=== PATIENT | female | born 1980 | race Caucasian/White ===

== ENCOUNTER 2016-06-13 17:33 | Inpatient (IN) | payer MEDICAID ==
[~2016-06-13] VITALS: Ht 162.6 cm; Wt 115.7 kg
[~2016-06-13 17:33] MED LIST: ACID1TAB PO; AMOX500C2 PO; ASPI1TAB PO; BENZ56AE TP; CLIN-80 PO; DCS100C PO; FAMO-119 PO; FLUC100T6 PO; FLUC150T PO; FLUC150T2; FRS325T PO; GLBR5T PO; GLIM2TAB PO; HYDR-34 PO; HYDR-3714 PO; HYDR-757 PO; IBP600T1 PO; INSA10V SC; INSU100V5 SQ; LEVO25TA45 PO; LIRA0.6P3; LORA0.5T; METF-380 PO; METF500T8 PO; NCT21TD TD; ONDA8TAB13 PO; ONDA8TAB9 PO; PEDI100T; PNT40TEC PO; PRM25T PO; SULF-222 PO; SULF1TAB35 PO; TRAM50TA2
[2016-06-13] MEDS ORDERED: KETOROLAC 30 MG/ML VIAL IVP STA (17:58)
[2016-06-13] MEDS ORDERED: NS IV 1000 ML 1,000 ML IV ONE (17:58)
[2016-06-13 18:24] LABS: BASOPHILS # (AUTO) 0.1 10^3/uL (0.0-0.1); BASOPHILS % (AUTO) 0 % (0-10); BILIRUBIN,URINE 1+ (NEGATIVE); EOSINOPHILS # (AUTO) 0.5 10^3/uL (0.0-0.3); EOSINOPHILS % (AUTO) 3 % (0-10); KETONES,URINE 2+ (NEGATIVE); LEUKOCYTE ESTERASE ,URINE 2+ (NEGATIVE); LYMPHOCYTES # (AUTO) 3.6 X 10^3 (1.0-4.0); LYMPHOCYTES % (AUTO) 26 % (12-44); MEAN CORPUSCULAR HEMOGLOBIN 27 PG (25-34); MEAN CORPUSCULAR HGB CONC 35 G/DL (32-36); MEAN CORPUSCULAR VOLUME 77 FL (80-99); MONOCYTES # (AUTO) 0.7 X 10^3 (0.0-1.0); MONOCYTES % (AUTO) 5 % (0-12); NEUTROPHILS # (AUTO) 8.9 X 10^3 (1.8-7.8); NEUTROPHILS % (AUTO) 65 % (42-75); NITRITE,URINE NEGATIVE (NEGATIVE); PH,URINE 6 (5-9); PLATELET COUNT 377 10^3/uL (130-400); PROTEIN,URINE 3+ (NEGATIVE); RED BLOOD COUNT 5.56 10^6/uL (4.35-5.85); RED CELL DISTRIBUTION WIDTH 13.3 % (10.0-14.5); UROBILINOGEN,URINE 1 MG/DL (NORMAL); WHITE BLOOD COUNT 13.7 10^3/uL (4.3-11.0)
--- NOTE | 2016-06-13 18:36 | ED Integumentary General ---
General Chief Complaint: Wound Check (No Charge) Stated Complaint: INNER L BUTTOCK CHEEK INFECTION, HIGH BLOOD SUGAR Nursing Triage Note: States she ahs a large pus filled pocket near perineum. States it has increased in size and lumps in rt groin. Fever and chills. Also states BS has been greater than 500. Source: patient History of Present Illness Time seen by provider: 17:53 Initial Comments PT C/O "BOIL" TO LEFT BUTTOCK/ PERINEUM AREA FOR AT LEAST 1 1/2 MONTHS--HAS NOT SOUGHT CARE AT ANY TIME FOR THIS STATES IS GRADUALLY GETTING WORSE,BUT IS NOT ACTUALLY ANY DIFFERENT TODAY THAN IT HAS BEEN HAS HAD THE SAME MULTIPLE TIMES IN GENERAL AREA FROM MONS PUBIS/GROIN/LABIA/ PERINEUM/BUTTOCKS PT ALSO HAS A FEW SMALLER ONES TO INNER THIGHS/GROIN AND MONS AREAS NONE HAVE BEEN DRAINING STATES SHE HAS HAD SUBJECTIVE FEVER AND CHILLS NO PROBLEMS URINATING OR HAVING BM'S PT IS DIABETIC AND IS EXTREMELY NON-COMPLIANT IN ALL ASPECTS OF CARE. STATES SHE HAS NOT TAKEN ANY OF HER MEDICATIONS SINCE AT LEAST FEBRUARY, MAYBE LONGER. STATES SHE CHECKED HER BLOOD SUGAR AND HAS BEEN RUNNING OVER 500 ( SHE RARELY, IF EVER, CHECKS HER BLOOD SUGAR) PT WAS HERE 04/11 AND 04/13 FOR THE SAME, BUT IN A SLIGHTLY DIFFERENT AREA THAN THE INVOLVED AREA TODAY--I&D DONE PT NEVER FOLLOWED UP WITH ANY ONE AFTER THAT. PT HAS BEEN ADMITTED IN THE PAST FOR THESE PCP: [facility] [place]ies and Home Medications Allergies Coded Allergies: latex (Unverified Allergy, Mild, RASH, ITCHING, 01/25/13) Uncoded Allergies: TAPE (Allergy, Mild, 05/23/09) Home Medications Aspirin/Acetaminophen/Caffeine 1 Tab Tablet 2 TAB PO Q6H PRN PRN PAIN (Reported ) Glimepiride Unknown Strength Tablet #90 Unknown Dose PO (Reported) Insulin Determir 1,000 Units/10 Ml Soln 30 UNITS SQ HS (Reported) Liraglutide 0.6 Mg/0.1 Ml Pen.injctr 1.8 MG SQ HS (Reported) Metformin HCl 500 Mg Tab.er.24 1,000 MG PO BID (Reported) Constitutional: see HPI chills fever EENTM: no symptoms reported Respiratory: no symptoms reported Cardiovascular: no symptoms reported Gastrointestinal: no symptoms reportedNo nausea, No vomiting Genitourinary: see HPI Musculoskeletal: no symptoms reported Skin: see HPI Psychiatric/Neurological: No Symptoms Reported Endocrine: See HPI Hematologic/Lymphatic: No Symptoms Reported Past Rhzbiex-Cbjliw-Nfpqyb Hx Patient Social History Alcohol Use: Denies Use Recreational Drug Use: Yes (THC) Smoking Status: Current Someday Smoker Type Used: Cigarettes 2nd Hand Smoke Exposure: Yes Recent Foreign Travel: No Contact w/Someone Who Travel: No Recent Infectious Disease Expo: No Recent Hopitalizations: No Immunizations Up To Date Tetanus Booster (TDap): Unknown PED Vaccines UTD: Yes Surgeries HX Surgeries: Yes (LEEP; X 4; MULTIPLE I&D'S OF ABSCESSES) Surgeries: Adenoidectomy, Section, Gallbladder, Tonsillectomy Respiratory Hx Respiratory Disorders: No Cardiovascular Hx Cardiac Disorders: No Neurological Hx Neurological Disorders: No Reproductive System Hx Reproductive Disorders: No Genitourinary Hx Genitourinary Disorders: No Gastrointestinal Hx Gastrointestinal Disorders: No Musculoskeletal Hx Musculoskeletal Disorders: No Endocrine Hx Endocrine Disorders: Yes (NON-COMPLIANCE IN ALL ASPECTS OF CARE--DOES NOT TAKE MEDICATIONS PRESCRIBED--GOES MONTHS WITHOUT TAKING THEM AT ALL, DOES NOT CHECK BLOOD SUGAR, DOES NOT FOLLOW ANY DIET, DOES NOT EXERCISE, AND DOES NOT FOLLOW UP WITH PCP) Endocrine Disorders: Diabetes, Insulin dep HEENT HX ENT Disorders: No Loss of Vision: Denies Hearing Impairment: Denies Cancer Hx Cancer: No Psychosocial Hx Psychiatric Problems: No Integumentary HX Skin/Integumentary Disorder: Yes (MULTIPLE ABSCESSES AND I&D'S --STAPH) Blood Transfusions Hx Blood Disorders: No Adverse Reaction to a Blood Tr: No Family Medical History Significant Family History: No Pertinent Family Hx Family Medial History: Alcoholism Alzheimer's disease Arthritis Cataracts Completed stroke Diabetes mellitus Drug abuse Glaucoma Osteoporosis Psychosocial problem Respiratory disorder Severe allergy Thyroid disease Visual disorder No Family History of: AIDS Abdominal aortic aneurysm [place]'s disease Aphasia Asthma Cancer of mouth Cardiovascular disease Colon cancer Congenital disease Congenital heart disease Coronary thrombosis Cystic fibrosis Deafness or hearing loss Dementia Dysphasia Fibrocystic disease of breast Gastroenteritis Headache disorder Hypercholesterolemia Hypertension Infertility Kidney disease Myocardial infarction Neoplasm Not obtainable due to adoption Parkinson's disease Prostate cancer Seizure disorder Tuberculosis Physical Exam Vital Signs Vital Sign - Last 12Hours 06/13/16 17:53 Temp 99.1 Pulse 80 Resp 18 B/P 109/73 Pulse Ox 96 Capillary Refill : Less Than 3 Seconds General Appearance: WD/WN no apparent distress obese HEENT: PERRL/EOMI Neck: normal inspection Cardiovascular: regular rate, rhythm no murmur Respiratory: normal breath sounds Gastrointestinal: non tender soft Extremities: normal inspection Neurologic/Psychiatric: coo II-XII nml as tested no motor/sensory deficits alert normal mood/affect oriented x 3 Skin: warm/dry other (LARGE, VERY HARD/INDURATED/ERYTHEMATOUS, VERY TENDER MASS/ABSCESS TO LEFT PERIRECTAL AREA--APPROXIMATELY 10 CM IN DIAMETER. NO POINTING. NO AREAS OF FLUCTUANCE, NO DRAINAGE. HAS SEVERAL OTHER SMALLER ABSCESS TO MEDIAL RIGHT THIGH, RIGHT GROIN, LEFT MONS PUBIS AREA. NONE WITH FLUCUTANCE, DRAINAGE, POINTING OR STREAKS. ) Progress/Results/Core Measures Results/Orders Lab Results Laboratory Tests Test 06/13/16 18:10 06/13/16 18:11 06/13/16 18:46 Range/Units Glucometer 242 H 70-110 MG/DL Alanine Aminotransferase (ALT/SGPT) 32 0-55 U/L Albumin 4.0 3.2-4.5 G/DL Alkaline Phosphatase 86 40-136 U/L Anion Gap 13 5-14 MMOL/L Aspartate Amino Transf (AST/SGOT) 29 5-34 U/L BUN/Creatinine Ratio 9 Basophils # (Auto) 0.1 0.0-0.1 10^3/uL Basophils (%) (Auto) 0 0-10 % Blood Urea Nitrogen 7 7-18 MG/DL Calcium Level 9.1 8.5-10.1 MG/DL Carbon Dioxide Level 21 21-32 MMOL/L Chloride Level 101 98-107 MMOL/L Creatinine 0.80 0.60-1.30 MG/DL Eosinophils # (Auto) 0.5 H 0.0-0.3 10^3/uL Eosinophils (%) (Auto) 3 0-10 % Estimat Glomerular Filtration Rate > 60 Glucose Level 246 H 70-105 MG/DL Hematocrit 43 35-52 % Hemoglobin 15.2 11.5-16.0 G/DL Lymphocytes # (Auto) 3.6 1.0-4.0 X 10^3 Lymphocytes (%) (Auto) 26 12-44 % Mean Corpuscular Hemoglobin 27 25-34 PG Mean Corpuscular Hemoglobin Concent 35 32-36 G/DL Mean Corpuscular Volume 77 L 80-99 FL Mean Platelet Volume 10.0 7.4-10.4 FL Monocytes # (Auto) 0.7 0.0-1.0 X 10^3 Monocytes (%) (Auto) 5 0-12 % Neutrophils # (Auto) 8.9 H 1.8-7.8 X 10^3 Neutrophils (%) (Auto) 65 42-75 % Platelet Count 377 130-400 10^3/uL Potassium Level 3.9 3.6-5.0 MMOL/L Red Blood Count 5.56 4.35-5.85 10^6/uL Red Cell Distribution Width 13.3 10.0-14.5 % Sodium Level 135 135-145 MMOL/L Total Bilirubin 0.5 0.1-1.0 MG/DL Total Protein 7.9 6.4-8.2 G/DL Urine Bacteria MODERATE H /HPF Urine Bilirubin 1+ H NEGATIVE Urine Casts NONE /LPF Urine Clarity SLIGHTLY CLOUDY Urine Color YELLOW Urine Crystals NONE /LPF Urine Culture Indicated YES Urine Glucose (UA) 3+ H NEGATIVE Urine Ketones 2+ H NEGATIVE Urine Leukocyte Esterase 2+ H NEGATIVE Urine Mucus LARGE H /LPF Urine Nitrite NEGATIVE NEGATIVE Urine Protein 3+ H NEGATIVE Urine RBC 2-5 H /HPF Urine RBC (Auto) 1+ H NEGATIVE Urine Specific [place] 1.025 H 1.016-1.022 Urine Squamous Epithelial Cells 25-50 H /HPF Urine Urobilinogen 1 NORMAL MG/DL Urine WBC 5-10 H /HPF Urine pH 6 5-9 White Blood Count 13.7 H 4.3-11.0 10^3/uL Lactic Acid Level 1.3 0.5-2.0 MMOL/L My Orders Orders-NIYAH HANNA DO Accucheck Stat ONCE (06/13/16 17:58) Saline Lock/Iv-Start (06/13/16 17:58) Cbc With Automated Diff (06/13/16 17:58) Comprehensive Metabolic Panel (06/13/16 17:58) Lactic Acid Analyzer (06/13/16 17:58) Ua Culture If Indicated (06/13/16 17:58) Blood Culture (06/13/16 17:58) Ns Iv 1000 Ml (Sodium Chloride 0.9%) (06/13/16 17:58) Ketorolac Injection (Toradol Injection) (06/13/16 17:58) Ct Pelvis W (06/13/16 18:28) Vancomycin Iv Add-[place] (Vancomycin Iv (06/13/16 18:45) Iohexol Injection (Omnipaque 350 Mg/Ml 1 (06/13/16 18:45) Ns (Ivpb) (Sodium Chloride 0.9% Ivpb Bag (06/13/16 18:45) Urine Culture (06/13/16 18:11) Medications Given in ED Current Medications Medications Dose Ordered Sig/Laura Route Start Time Stop Time Status Last Admin Dose Admin Iohexol 100 ml ONCE ONCE IV 06/13/16 18:45 06/13/16 18:46 DC 06/13/16 18:52 100 ML Sodium Chloride 100 ml ONCE ONCE IV 06/13/16 18:45 06/13/16 18:46 DC 06/13/16 18:52 80 ML Sodium Chloride 1,000 ml @ 0 mls/hr Q0M ONCE IV 06/13/16 17:58 06/13/16 18:00 DC 06/13/16 18:27 1,000 MLS/HR Vancomycin HCl/ Sodium Chloride 250 ml @ 250 mls/hr ONCE ONCE IV 06/13/16 18:45 06/13/16 19:44 DC 06/13/16 19:15 250 MLS/HR Vital Signs/I&O Vital Sign - Last 12Hours 06/13/16 06/13/16 17:53 19:45 Temp 99.1 98.0 Pulse 80 89 Resp 18 18 B/P 109/73 120/71 Pulse Ox 96 99 Blood Pressure Mean: 85 Point of Care Testing Finger Stick Blood Glucose: [address] PELVIS--4.5 CM X 2.6 X 1.8 CM ABSCESS/AREA OF CONSOLIDATION TO LEFT PERIRECTAL AREA/LEFT MEDIAL GLUTEUS AREA ADJACENT TO ANUS. OTHER SMALLER ABSCESSES TO RIGHT MEDIAL THIGH AND LEFT MONS AREAS--PER RADIOLOGIST REPORT @ 1921 Reviewed: Reviewed by Me Departure Communication Progress Notes 1921--SPOKE WITH DR. NUÑEZ, ACCEPTS PT FOR ADMIT 1923--SPOKE WITH DR. CHASE, ALREADY HERE IN ER AND HE IS IN TO SEE PT. CARE TURNED OVER TO HIM. HE IS PLANNING ON TAKING PT TO SURGERY IN AM Impression Impression: Primary Impression: LEFT PERIRECTAL ABSCESS Additional Impressions: Uncontrolled diabetes mellitus EXTREME NON-COMPLIANCE Disposition: 09 ADMITTED INPATIENT Condition: Stable Decision to Admit Reason: Admit from ER (General) Decision to Admit/Date: Jun 13, 2016 Time/Decision to Admit Time: 19:25 Departure-Patient Inst. Referrals: [facility] (PCP/Family) Primary Care Physician NIYAH HANNA DO Jun 13, 2016 18:36
[2016-06-13 18:38] LABS: SQUAMOUS EPITHELIAL CELL,UR 25-50 /HPF
[2016-06-13] MEDS ORDERED: NS 100 ML (IVPB) BAG IV ONE (18:45)
[2016-06-13] MEDS ORDERED: VANCOMYCIN IV ADD-VANTAGE 1,000 MG in SODIUM CHLORIDE (ADD-VANTAGE) 250 ML IV ONE (18:45)
[2016-06-13] MEDS ORDERED: IOHEXOL 350 MG/ML 100 ML (OMNIPAQUE 350) VIAL IV ONE (18:45)
[2016-06-13 18:53] LABS: ALANINE AMINOTRANSFERASE 32 U/L (0-55); ANION GAP 13 MMOL/L (5-14); ASPARTATE AMINO TRANSFERASE 29 U/L (5-34); BILIRUBIN,TOTAL 0.5 MG/DL (0.1-1.0); BLOOD UREA NITROGEN 7 MG/DL (7-18); BUN/CREATININE RATIO 9; CALCIUM 9.1 MG/DL (8.5-10.1); CARBON DIOXIDE 21 MMOL/L (21-32); CHLORIDE 101 MMOL/L (98-107); GFR ESTIMATED > 60; GLUCOSE 246 MG/DL (70-105); POTASSIUM 3.9 MMOL/L (3.6-5.0); SODIUM 135 MMOL/L (135-145); TOTAL PROTEIN 7.9 G/DL (6.4-8.2)
--- NOTE | 2016-06-13 19:20 | Diagnostic Imaging Report ---
CLINICAL INDICATION: Patient with cyst in the groin. Patient has x4. EXAM: Axial CT scan of the pelvis performed with 20 cc of Omnipaque 350 IV contrast. Portal venous and delayed phases were obtained. Coronal reformatted images were created. COMPARISON: CT scan of the abdomen and pelvis performed with IV contrast dated 05/15/2014. FINDINGS: There is a 2.6 cm x 1.8 cm x 4.5 cm (AP x Trans x CC) area of amorphous consolidation involving the medial gluteus which is adjacent to the anus. It is unknown if this represents a cyst or area of infection or inflammatory process. There is mild adjacent fat stranding. This was not seen on the prior study. There is a roughly 2.1 cm wide x 4 mm deep area of focal soft tissue thickening involving the medial right upper thigh region. There is mild adjacent fat stranding. This lesion is pretty superficial. There is also another superficial area of increased density on the left side of the mons pubis which measures roughly 9 mm with adjacent fat stranding. This is seen on series 2, image 56. There is no other extrapelvic soft tissue abnormality seen. The uterus and adnexal regions are unremarkable. The visualized intestines and appendix are unremarkable. There is no intra-abdominal free air or free fluid. There is no significant lymphadenopathy. Bones show no significant abnormality. IMPRESSION: 1.: There is a 2.6 cm x 1.8 cm x 4.5 cm (AP x Trans x CC) area of amorphous density involving the medial gluteus subcutaneous fat which is adjacent to the anus. It is unknown if this represents a cyst or infectious or inflammatory process. 2.: There are two other small areas of skin thickening with adjacent fat stranding which are superficial and involve the medial right upper thigh region and left mons pubis region. These are superficial lesions. Dictated by: Dictated on workstation # [id number]
--- NOTE | 2016-06-13 19:57 | Consultation ---
History of Present Illness History of Present Illness Patient Consulted On(selma/time) 06/13/16 19:51 Date of Admission History of Present Illness Pt is a 36 y.o. female with complaints of abscess on her left gluteal cheek, "near my rectum". She states it has been there about a month and half. It has not gotten better, pain is getting worse (she rates it at at least a 7 out of 10). She is an uncontrolled diabetic, blood sugars have been over 500. She has not come in until now because she was terrified of it being "lanced in the ER". She states she didn't eat much today, but is hungry now. Allergies and Home Medications Allergies Coded Allergies: latex (Unverified Allergy, Mild, RASH, ITCHING, 01/25/13) Uncoded Allergies: TAPE (Allergy, Mild, 05/23/09) Home Medications Acidophilus/Bulgaricus 1 Tab.chew Tab.chew 30Days 1 TAB.CHEW PO AC Prescribed by: ALLI PEREA on 05/17/14 1622 Aspirin/Acetaminophen/Caffeine 1 Tab Tablet 2 TAB PO Q6H PRN PRN PAIN (Reported ) Benzocaine/Menthol 56 Ml Aerosol 30Days 0 ML TP TID PRN PRN PAIN Prescribed by: ALLI PEREA on 05/17/14 1622 Famotidine 20 Mg Tablet #20 20 MG PO BID Prescribed by: TIFFANY CARRASCO on 04/13/16 1750 Fluconazole 150 Mg Tablet #2 (Reported) Fluconazole 100 Mg Tablet #10 100 MG PO DAILY Prescribed by: TIFFANY CARRASCO on 04/13/16 1750 Hydrocodone/Acetaminophen 1 Each Tablet #14 1 EACH PO Q4H PRN PRN PAIN Prescribed by: KIMBERLI FELTON on 04/11/16 1217 Insulin Detemir 1 Unit/0.01 Ml Soln 30Days 20 UNIT SQ HS Prescribed by: ALLI PEREA on 05/17/14 1622 Levothyroxine Sodium 25 Mcg Tablet 25 MCG PO DAILY (Reported) Liraglutide 0.6 Mg/0.1 Ml Pen.injctr #9 (Reported) Lorazepam 0.5 Mg Tablet #30 (Reported) Metformin Hcl 500 Mg Tab.sr.24h 30Days 1,000 MG PO BID Start the morning of 05-18-14 Prescribed by: ALLI PEREA on 05/17/14 1622 Ondansetron 8 Mg Tab.rapdis #20 8 MG PO TID PRN PRN NAUSEA Prescribed by: ALLI PEREA on 05/17/14 1627 Ondansetron 8 Mg Tab.rapdis #10 8 MG PO Q6H PRN PRN NAUSEA/VOMITING Prescribed by: KIMBERLI FELTON on 04/11/16 1217 Ondansetron 8 Mg Tab.rapdis #10 8 MG PO Q6H PRN PRN NAUSEA Prescribed by: TIFFANY CARRASCO on 04/13/16 1750 Promethazine Hcl 25 Mg Tab #5 25 MG PO Q6H PRN PRN NAUSEA Prescribed by: ALLI PEREA on 05/17/14 1627 Sulfamethoxazole/Trimethoprim 1 Each Tablet #20 1 EACH PO BID Prescribed by: KIMBERLI FELTON on 04/11/16 1217 Tramadol HCl 50 Mg Tablet #60 (Reported) Past Zysqnrv-Aimalu-Zhnsky Hx Patient Social History Alcohol Use: Denies Use Recreational Drug Use: Yes (thc and alcohol) Smoking Status: Current Someday Smoker Type Used: Cigarettes 2nd Hand Smoke Exposure: Yes Recent Foreign Travel: No Contact w/Someone Who Travel: No Recent Infectious Disease Expo: No Recent Hopitalizations: No Immunizations Up To Date Tetanus Booster (TDap): Unknown PED Vaccines UTD: Yes Surgeries HX Surgeries: Yes (LEEP) Surgeries: Adenoidectomy, Section, Gallbladder, Tonsillectomy Respiratory Hx Respiratory Disorders: No Cardiovascular Hx Cardiac Disorders: No Neurological Hx Neurological Disorders: No Reproductive System Hx Reproductive Disorders: No Genitourinary Hx Genitourinary Disorders: No Gastrointestinal Hx Gastrointestinal Disorders: No Musculoskeletal Hx Musculoskeletal Disorders: No Endocrine Hx Endocrine Disorders: Yes Endocrine Disorders: Diabetes, Insulin dep HEENT HX ENT Disorders: No Loss of Vision: Denies Hearing Impairment: Denies Cancer Hx Cancer: No Psychosocial Hx Psychiatric Problems: No Integumentary HX Skin/Integumentary Disorder: No Blood Transfusions Hx Blood Disorders: No Adverse Reaction to a Blood Tr: No Family Medical History Significant Family History: COPD, Diabetes, Psychiatric Problems, Stroke Review of Systems-General Constitutional: chillsNo dizziness, fever weakness EENTM: No blurred vision, No epistaxis, No hearing loss, No throat pain, No throat swelling, No vision loss Respiratory: No cough, No dyspnea on exertion, No hemoptysis Cardiovascular: No chest pain, No palpitations, No syncope Gastrointestinal: No abdominal pain, No constipation, No diarrhea, No hematemesis Skin: see HPI change in color Psychiatric/Neurological: Denies Anxiety, Denies Depressed, Denies Headache, Denies Paresthesia, Denies Seizure Physical Exam-General Problems Physical Exam Vital Signs Vital Sign - Last 12Hours 06/13/16 17:53 Temp 99.1 Pulse 80 Resp 18 B/P 109/73 Pulse Ox 96 Capillary Refill : Less Than 3 Seconds General Appearance: WD/WN mild distress (secondary to pain) obese Eyes: Bilateral Eye EOMI, Bilateral Eye PERRL HEENT: pharynx normalNo scleral icterus (R), No scleral icterus (L) Neck: non-tender full range of motion supple normal inspection Respiratory: lungs clear normal breath sounds no respiratory distress no accessory muscle use Cardiovascular: regular rate, rhythm no edema no murmur Gastrointestinal: normal bowel sounds soft no organomegaly no pulsatile mass Genital/Rectal: other (exam done with female nurse in room. Pt has a gluteal abscess, purplish discoloration of skin, erythema and tender. 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 as tested no motor/sensory deficits alert normal mood/affect oriented x 3 Lymphatic: no adenopathy (neck, axilla or groin) Data Review Labs Laboratory Tests 06/13/16 18:10: Glucometer 242H 06/13/16 18:11: Alanine Aminotransferase (ALT/SGPT) 32, Albumin 4.0, Alkaline Phosphatase 86, Anion Gap 13, Aspartate Amino Transf (AST/SGOT) 29, BUN/Creatinine Ratio 9, Basophils # (Auto) 0.1, Basophils (%) (Auto) 0, Blood Urea Nitrogen 7, Calcium Level 9.1, Carbon Dioxide Level 21, Chloride Level 101, Creatinine 0.80, Eosinophils # (Auto) 0.5H, Eosinophils (%) (Auto) 3, Estimat Glomerular Filtration Rate > 60, Glucose Level 246H, Hematocrit 43, Hemoglobin 15.2, Lymphocytes # (Auto) 3.6, Lymphocytes (%) (Auto) 26, Mean Corpuscular Hemoglobin 27, Mean Corpuscular Hemoglobin Concent 35, Mean Corpuscular Volume 77L, Mean Platelet Volume 10.0, Monocytes # (Auto) 0.7, Monocytes (%) (Auto) 5, Neutrophils # (Auto) 8.9H, Neutrophils (%) (Auto) 65, Platelet Count 377, Potassium Level 3.9, Red Blood Count 5.56, Red Cell Distribution Width 13.3, Sodium Level 135, Total Bilirubin 0.5, Total Protein 7.9, Urine Bacteria MODERATEH, Urine Bilirubin 1+H, Urine Casts NONE, Urine Clarity SLIGHTLY CLOUDY , Urine Color YELLOW, Urine Crystals NONE, Urine Culture Indicated YES, Urine Glucose (UA) 3+H, Urine Ketones 2+H, Urine Leukocyte Esterase 2+H, Urine Mucus LARGEH, Urine Nitrite NEGATIVE, Urine Protein 3+H, Urine RBC 2-5H, Urine RBC ( Auto) 1+H, Urine Specific [place] 1.025H, Urine Squamous Epithelial Cells 25-50H , Urine Urobilinogen 1, Urine WBC 5-10H, Urine pH 6, White Blood Count 13.7H 06/13/16 18:46: Lactic Acid Level 1.3 Assessment/Plan Assessment/Plan Assessment/Plan Gluteal Abscess -to OR in am for I&D, with possible packing. Discussed risks and benefits with pt, not limited to pain, bleeding, infection and scar. All questions answered to her satisfaction. Pt was told she must get her blood sugar under control , this will delay her healing. IV fluids, ABX - Vanco. NPO after midnight. DM - uncontrolled Morbid Obesity DREA CHASE DO Jun 13, 2016 19:57 LARGEH, Urine Nitrite NEGATIVE, Urine Protein 3+H, Urine RBC 2-5H, Urine RBC ( Auto) 1+H, Urine Specific [place] 1.025H, Urine Squamous Epithelial Cells 25-50H , Urine Urobilinogen 1, Urine WBC 5-10H, Urine pH 6, White Blood Count 13.7H 06/13/16 18:46: Lactic Acid Level 1.3 DREA CHASE DO Jun 13, 2016 19:57
[2016-06-13 20:00] VITALS: BP 122/73
[2016-06-13] MEDS ORDERED: VANCOMYCIN 1 GM/NS 250 ML IVPB IV NR ×2 (20:30)
[2016-06-13] MEDS ORDERED: CATHETER FLUSH 10 ML SYR IV PRN (20:45)
[2016-06-13] MEDS: NS IV 1000 ML 1,000 ML IV SCH (20:54)
[2016-06-13] MEDS: fentaNYL INJECTION 100 MCG/2 ML AMP IV PRN (21:00)
[2016-06-13] MEDS: inSUlin (REGULAR) HUMAN 1 UNIT/0.01 ML (CHARGE PER UNIT) SC SCH (21:24)
[2016-06-14] VITALS (7 sets, daily range): BP systolic 93–130; BP diastolic 56–71
[2016-06-14] MEDS: fentaNYL INJECTION 100 MCG/2 ML AMP IV PRN ×4 (01:02→15:04)
[2016-06-14] MEDS ORDERED: INSU100V5 SQ (02:01)
[2016-06-14] MEDS ORDERED: LIRA0.6P3 SQ (02:01)
[2016-06-14] MEDS ORDERED: METF-478 PO (02:01)
[2016-06-14] MEDS ORDERED: GLIM2TAB PO ×2 (02:02→14:17)
[2016-06-14] MEDS: VANCOMYCIN 1250 MG/NS 250 ML IVPB IV SCH ×6 (04:42→23:58)
[2016-06-14] MEDS: KETOROLAC 30 MG/ML VIAL IV PRN ×3 (05:10→18:34)
[2016-06-14] MEDS: NS IV 1000 ML 1,000 ML IV SCH ×4 (05:11→23:10)
[2016-06-14] MEDS: inSUlin (REGULAR) HUMAN 1 UNIT/0.01 ML (CHARGE PER UNIT) SC SCH ×4 (05:14→16:59)
[2016-06-14 05:57] LABS: BASOPHILS % (AUTO) 0 % (0-10); EOSINOPHILS # (AUTO) 0.4 10^3/uL (0.0-0.3); EOSINOPHILS % (AUTO) 3 % (0-10); LYMPHOCYTES # (AUTO) 4.2 X 10^3 (1.0-4.0); LYMPHOCYTES % (AUTO) 32 % (12-44); MEAN CORPUSCULAR HEMOGLOBIN 28 PG (25-34); MEAN CORPUSCULAR HGB CONC 35 G/DL (32-36); MEAN CORPUSCULAR VOLUME 79 FL (80-99); MEAN PLATELET VOLUME 10.3 FL (7.4-10.4); MONOCYTES # (AUTO) 0.7 X 10^3 (0.0-1.0); MONOCYTES % (AUTO) 5 % (0-12); NEUTROPHILS # (AUTO) 7.5 X 10^3 (1.8-7.8); NEUTROPHILS % (AUTO) 59 % (42-75); PLATELET COUNT 300 10^3/uL (130-400); RED BLOOD COUNT 5.45 10^6/uL (4.35-5.85); RED CELL DISTRIBUTION WIDTH 13.5 % (10.0-14.5); WHITE BLOOD COUNT 12.8 10^3/uL (4.3-11.0)
[2016-06-14] MEDS ORDERED: FLU TRIvalent (5 YOA+) 2016-17 (AFLURIA) 0.5 ML IM ONE (07:30)
[2016-06-14] MEDS ORDERED: BUP/EPI 0.25% 1:200,000 (MARCAINE) 30 ML VIAL ONE (09:05)
[2016-06-14] MEDS ORDERED: LACTATED RINGERS 1,000 ML IV ONE (10:10)
[2016-06-14] MEDS ORDERED: MIDAZOLAM 2 MG/2 ML (VERSED) VIAL ONE (10:10)
[2016-06-14] MEDS ORDERED: SUCCINYLCHOLINE INJ 100 MG/5 ML SYR ONE (10:10)
[2016-06-14] MEDS ORDERED: proPOfol 200 MG/20 ML (DIPRIVAN) VIAL IV ONE (10:10)
[2016-06-14] MEDS ORDERED: fentaNYL INJECTION 100 MCG/2 ML AMP ONE (10:10)
[2016-06-14] MEDS ORDERED: LACTATED RINGERS 1,000 ML IV SCH (10:15)
[2016-06-14] MEDS ORDERED: morphine INJ 10 MG/ML 1ML (SYR OR VIAL) ONE (10:23)
[2016-06-14] MEDS ORDERED: ONDANSETRON 4 MG/2 ML (SDV) Z0FRAN ONE ×2 (10:23→10:46)
[2016-06-14] MEDS ORDERED: ROCURONIUM 50 MG/5 ML (ZEMURON) VIAL IV ONE (10:46)
[2016-06-14] MEDS ORDERED: SEVOFLURANE (ULTANE) 15 ML INHAL SOLN ONE (10:46)
[2016-06-14] MEDS ORDERED: NEOSTIGMINE (BLOXIVERZ ) 1 MG/1ML 10 ML VIAL ONE (10:46)
[2016-06-14] MEDS ORDERED: GLYCOPYRROLATE 0.2 MG/ML (ROBINUL) 2 ML VIAL ONE (10:46)
--- NOTE | 2016-06-14 10:55 | Progress Note-Post Operative ---
Post-Operative Progess Note Vault Maker None Pre-Operative Diagnosis Left gluteal abscess Post-Operative Diagnosis Same with necrotic tissue Post-Op Procedure Note Date of Procedure: Jun 14, 2016 Name of Procedure: I&D left gluteal abscess with debridement of necrotic tissue, packed with 1/2" iodophor Anesthesia Type GET Estimated blood loss (mL): appx 20cc Packin/2 inch iodophor packing Specimen(s) collected abscess culture, necrotic tissue DREA CHASE DO Jun 14, 2016 10:55
[2016-06-14] MEDS: morphine INJ 10 MG/ML 1ML (SYR OR VIAL) IV PRN ×2 (11:14→11:22)
[2016-06-14] MEDS ORDERED: ONDANSETRON 4 MG/2 ML (SDV) Z0FRAN IV PRN (11:15)
--- NOTE | 2016-06-14 13:53 | History & Physicial (CHS) ---
HPI History of Present Illness: Patient presented to ER with complaint of abscess in gluteal region which has been worsening over the last 1.5 months. She does endorse fevers at home. She has diabetes and she states she had a "stockpile" of metformin, victoza and levemir and so she has been taking those, but has been out of glimeperide which she says she has tried to get refilled but can't. She can't recall the last time she saw her primary, Tatiana Santos APRN. Date seen by provider: Jun 14, 2016 Time seen by provider: 11:15 Attending Physician Marian Riojas MD PCP [facility] [place] Date of Admission Jun 13, 2016 at 19:47 Home Medications Home Medications Reviewed patient Home Medication Reconciliation Form Allergies Coded Allergies: latex (Unverified Allergy, Mild, RASH, ITCHING, 01/25/13) Uncoded Allergies: TAPE (Allergy, Mild, 05/23/09) UXO-Vwypct-[id number] Hx Patient Social History Alcohol Use: Denies Use Recreational Drug Use: Yes (THC) Smoking Status: Current Everyday Smoker Type Used: Cigarettes 2nd Hand Smoke Exposure: Yes Recent Foreign Travel: No Contact w/other who traveled: No Recent Hopitalizations: No Recent Infectious Disease Expo: No Physical Abuse Screen: No Sexual Abuse: No Immunizations Up To Date Tetanus Booster (TDap): Unknown Past Medical History Past Medical History 1. Diabetes Mellitus- poorly controlled 2. Tobaccoism 3. History of labial abscess with I&D 03/10 with staph aures (sensitive to all antibiotics) 4. Obesity 5. Hypothyroidism 6. History of depression and anxiety with previous evaluations at [facility] Past Surgical History 1. x4 2. Tonsillectomy with adenoidectomy 3. Cholecystectomy Family Medical History Significant Family History: COPD, Diabetes, Psychiatric Problems, Stroke Review of Systems ([facility]) Constitutional: No fever EENTM: No nose congestion, No throat pain Respiratory: No cough, No short of breath Cardiovascular: No chest pain Gastrointestinal: No abdominal pain, No constipation, No diarrhea, No nausea, No vomiting Genitourinary: no symptoms reported Musculoskeletal: No joint pain Skin: see HPI Psychiatric/Neurological: No Symptoms Reported Reviewed Test Results Reviewed Test Results Lab Laboratory Tests Test 2/17/17 18:10 06/13/16 18:11 06/13/16 18:46 06/14/16 05:00 Range/Units Glucometer 242 H 70-110 MG/DL Alanine Aminotransferase (ALT/SGPT) 32 0-55 U/L Albumin 4.0 3.2-4.5 G/DL Alkaline Phosphatase 86 40-136 U/L Anion Gap 13 5-14 MMOL/L Aspartate Amino Transf (AST/SGOT) 29 5-34 U/L BUN/Creatinine Ratio 9 Basophils # (Auto) 0.1 0.0 0.0-0.1 10^3/uL Basophils (%) (Auto) 0 0 0-10 % Blood Urea Nitrogen 7 7-18 MG/DL Calcium Level 9.1 8.5-10.1 MG/DL Carbon Dioxide Level 21 21-32 MMOL/L Chloride Level 101 98-107 MMOL/L Creatinine 0.80 0.60-1.30 MG/DL Eosinophils # (Auto) 0.5 H 0.4 H 0.0-0.3 10^3/uL Eosinophils (%) (Auto) 3 3 0-10 % Estimat Glomerular Filtration Rate > 60 Glucose Level 246 H 70-105 MG/DL Hematocrit 43 43 35-52 % Hemoglobin 15.2 15.2 11.5-16.0 G/DL Lymphocytes # (Auto) 3.6 4.2 H 1.0-4.0 X 10^3 Lymphocytes (%) (Auto) 26 32 12-44 % Mean Corpuscular Hemoglobin 27 28 25-34 PG Mean Corpuscular Hemoglobin Concent 35 35 32-36 G/DL Mean Corpuscular Volume 77 L 79 L 80-99 FL Mean Platelet Volume 10.0 10.3 7.4-10.4 FL Monocytes # (Auto) 0.7 0.7 0.0-1.0 X 10^3 Monocytes (%) (Auto) 5 5 0-12 % Neutrophils # (Auto) 8.9 H 7.5 1.8-7.8 X 10^3 Neutrophils (%) (Auto) 65 59 42-75 % Platelet Count 377 300 130-400 10^3/uL Potassium Level 3.9 3.6-5.0 MMOL/L Red Blood Count 5.56 5.45 4.35-5.85 10^6/uL Red Cell Distribution Width 13.3 13.5 10.0-14.5 % Sodium Level 135 135-145 MMOL/L Total Bilirubin 0.5 0.1-1.0 MG/DL Total Protein 7.9 6.4-8.2 G/DL Urine Bacteria MODERATE H /HPF Urine Bilirubin 1+ H NEGATIVE Urine Casts NONE /LPF Urine Clarity SLIGHTLY CLOUDY Urine Color YELLOW Urine Crystals NONE /LPF Urine Culture Indicated YES Urine Glucose (UA) 3+ H NEGATIVE Urine Ketones 2+ H NEGATIVE Urine Leukocyte Esterase 2+ H NEGATIVE Urine Mucus LARGE H /LPF Urine Nitrite NEGATIVE NEGATIVE Urine Protein 3+ H NEGATIVE Urine RBC 2-5 H /HPF Urine RBC (Auto) 1+ H NEGATIVE Urine Specific Whittaker 1.025 H 1.016-1.022 Urine Squamous Epithelial Cells 25-50 H /HPF Urine Urobilinogen 1 NORMAL MG/DL Urine WBC 5-10 H /HPF Urine pH 6 5-9 White Blood Count 13.7 H 12.8 H 4.3-11.0 10^3/uL Lactic Acid Level 1.3 0.5-2.0 MMOL/L Test 06/14/16 05:46 06/14/16 11:59 Range/Units Glucometer 236 H 211 H 70-110 MG/DL Radiology CT pelvis 06/13: IMPRESSION: 1.: There is a 2.6 cm x 1.8 cm x 4.5 cm (AP x Trans x CC) area of amorphous density involving the medial gluteus subcutaneous fat which is adjacent to the anus. It is unknown if this represents a cyst or infectious or inflammatory process. 2.: There are two other small areas of skin thickening with adjacent fat stranding which are superficial and involve the medial right upper thigh region and left mons pubis region. These are superficial lesions. Physical Exam-([facility]) Physical Exam Vital Signs VS - Last 72 Hours, by Label 06/13/16 06/13/16 06/13/16 06/13/16 17:53 19:45 20:00 20:05 Temp 99.1 98.0 98.0 Pulse 80 89 86 70 Resp 18 18 B/P 109/73 120/71 122/73 Pulse Ox 96 99 100 99 O2 Delivery Room Air 06/13/16 06/14/16 06/14/16 06/14/16 20:30 00:00 04:00 08:00 Temp 98.8 97.2 98.3 Pulse 86 87 94 Resp 17 18 20 B/P 103/65 130/67 112/71 Pulse Ox 97 95 97 O2 Delivery Room Air Room Air Room Air Room Air 06/14/16 06/14/16 09:00 12:00 Temp 97.5 Pulse 65 Resp 20 B/P 100/67 Pulse Ox 98 O2 Delivery Room Air Room Air Capillary Refill : Less Than 3 Seconds General Appearance: no apparent distress Respiratory: lungs clear normal breath sounds Cardiovascular: regular rate, rhythm no murmur Gastrointestinal: normal bowel sounds non tender soft Neurologic/Psychiatric: alert Skin: other (dressing in place to perirectal area with no drainage noted on dressing) Assessment/Plan Assessment/Plan Admission Dx 1. Perirectal abscess 2. Uncontrolled DMII Plan 1. Perirectal abscess -Surgery consulted, I&D done in OR with packing, cultures pending -Continue vancomycin 2. Uncontrolled DM- resume home medications and sliding scale insulin, diabetic diet DVT ppx- SCDs Diagnosis/Problems: Clinical Quality Measures DVT/VTE Risk/Contraindication: Risk Factor Score Per Nursin RFS Level Per Nursing on Admit: 2=Moderate Copy Copies To 1: WINDY Borja BETHANY N MD Jun 14, 2016 13:53
[2016-06-14] MEDS ORDERED: LEVO75TA6 PO (14:17)
[2016-06-14] MEDS ORDERED: PATIENT MAY USE OWN MEDS, ALL MC SCH (16:15)
[2016-06-14] MEDS ORDERED: ACETAMINOPHEN 325 MG TABLET/CAPLET (TYLENOL) ONE (17:24)
[2016-06-14] MEDS ORDERED: ACETAMINOPHEN 500 MG TAB (TYLENOL) PO PRN (17:30)
[2016-06-14] MEDS ORDERED: TROUGH ORDER-PHARMACY XX NR (20:00)
[2016-06-14 21:17] LABS: ALANINE AMINOTRANSFERASE 28 U/L (0-55); ALBUMIN 3.3 G/DL (3.2-4.5); ANION GAP 8 MMOL/L (5-14); ASPARTATE AMINO TRANSFERASE 22 U/L (5-34); BILIRUBIN,TOTAL 0.4 MG/DL (0.1-1.0); BLOOD UREA NITROGEN 9 MG/DL (7-18); BUN/CREATININE RATIO 13; CALCIUM 8.3 MG/DL (8.5-10.1); CARBON DIOXIDE 21 MMOL/L (21-32); CHLORIDE 106 MMOL/L (98-107); CREATININE SERUM 0.71 MG/DL (0.60-1.30); GFR ESTIMATED > 60; GLUCOSE 221 MG/DL (70-105); POTASSIUM 3.7 MMOL/L (3.6-5.0); SODIUM 135 MMOL/L (135-145); TOTAL PROTEIN 6.6 G/DL (6.4-8.2)
[2016-06-15] MEDS: fentaNYL INJECTION 100 MCG/2 ML AMP IV PRN ×7 (00:01→21:25)
[2016-06-15] MEDS: inSUlin DETERMIR 1 UNIT/0.01 ML (LEVEMIR) CHARGE PER UNIT SQ SCH ×2 (00:01→21:25)
[2016-06-15] MEDS: LIRAGLUTIDE SQ SCH ×2 (00:03→21:27)
[2016-06-15] MEDS: VANCOMYCIN 1250 MG/NS 250 ML IVPB IV SCH ×2 (04:51)
[2016-06-15] MEDS: NS IV 1000 ML 1,000 ML IV SCH ×3 (04:52→21:26)
[2016-06-15 05:24] LABS: BASOPHILS % (AUTO) 0 % (0-10); EOSINOPHILS # (AUTO) 0.4 10^3/uL (0.0-0.3); EOSINOPHILS % (AUTO) 5 % (0-10); LYMPHOCYTES # (AUTO) 3.3 X 10^3 (1.0-4.0); LYMPHOCYTES % (AUTO) 35 % (12-44); MEAN CORPUSCULAR HEMOGLOBIN 28 PG (25-34); MEAN CORPUSCULAR HGB CONC 35 G/DL (32-36); MEAN CORPUSCULAR VOLUME 80 FL (80-99); MEAN PLATELET VOLUME 10.1 FL (7.4-10.4); MONOCYTES # (AUTO) 0.4 X 10^3 (0.0-1.0); MONOCYTES % (AUTO) 5 % (0-12); NEUTROPHILS # (AUTO) 5.4 X 10^3 (1.8-7.8); NEUTROPHILS % (AUTO) 56 % (42-75); PLATELET COUNT 323 10^3/uL (130-400); RED BLOOD COUNT 4.69 10^6/uL (4.35-5.85); RED CELL DISTRIBUTION WIDTH 13.3 % (10.0-14.5); WHITE BLOOD COUNT 9.6 10^3/uL (4.3-11.0)
[2016-06-15 05:44] LABS: ANION GAP 8 MMOL/L (5-14); BLOOD UREA NITROGEN 9 MG/DL (7-18); BUN/CREATININE RATIO 13; CALCIUM 8.1 MG/DL (8.5-10.1); CARBON DIOXIDE 18 MMOL/L (21-32); CHLORIDE 110 MMOL/L (98-107); CREATININE SERUM 0.69 MG/DL (0.60-1.30); GFR ESTIMATED > 60; GLUCOSE 181 MG/DL (70-105); POTASSIUM 4.5 MMOL/L (3.6-5.0); SODIUM 136 MMOL/L (135-145)
[2016-06-15 06:06] LABS: THYROID STIMULATING HORMONE 4.21 UIU/ML (0.35-4.94)
[2016-06-15 08:23] VITALS: BP 115/61
[2016-06-15] MEDS: inSUlin (REGULAR) HUMAN 1 UNIT/0.01 ML (CHARGE PER UNIT) SC SCH ×5 (08:29→21:25)
[2016-06-15] MEDS: LEVOTHYROXINE 75 MCG (LEVOTHROID) TABLET PO SCH (09:00)
[2016-06-15] MEDS ORDERED: ONDANSETRON 4 MG/2 ML (SDV) Z0FRAN IVP PRN (11:00)
[2016-06-15 12:00] VITALS: BP 134/84
[2016-06-15] MEDS: VANCOMYCIN 1500 MG/NS 500 ML IVPB IV SCH ×4 (12:26→21:25)
[2016-06-15] MEDS ORDERED: ACETAMINOPHEN 325 MG TABLET/CAPLET (TYLENOL) ONE (12:36)
[2016-06-15] MEDS: KETOROLAC 30 MG/ML VIAL IV PRN ×2 (12:40→23:07)
--- NOTE | 2016-06-15 14:19 | Progress Note (SOAP) ---
Subjective Subjective/Events-last exam Afebrile. She was worried to take her insulin last night because she thought her blood sugar might drop since she didn't eat much. She notes that at home if she takes levemir and victoza her blood sugar can drop from 500 to 180. She feels she is developing more bumps near her rectum and is still having a lot of pain. Date seen by provider: Jun 15, 2016 Time seen by provider: 09:40 Objective Exam Last Set of Vital Signs Vital Signs Date Time Temp Pulse Resp B/P Pulse Ox O2 Delivery O2 Flow Rate FiO2 06/15/16 12:00 98.6 82 20 134/84 96 Room Air Capillary Refill : Less Than 3 Seconds I&O Intake and Output 06/15/16 00:00 Intake Total 4102.5 ml Output Total 4 ml Balance 4098.5 ml Intake Oral 1840 ml IV Total 2262.5 ml Output Urine Total 4 ml # Voids 3 General: Alert, No Acute Distress Lungs: Clear to Auscultation, Normal Air Movement Heart: Regular Rate, No Murmurs Neuro: Normal Speech Psych/Mental Status: Mental Status NL Results/Procedures Lab Laboratory Tests 06/14/16 16:44: Glucometer 247H 06/14/16 20:16: Alanine Aminotransferase (ALT/SGPT) 28, Albumin 3.3, Alkaline Phosphatase 71, Anion Gap 8, Aspartate Amino Transf (AST/SGOT) 22, BUN/Creatinine Ratio 13, Blood Urea Nitrogen 9, Calcium Level 8.3L, Carbon Dioxide Level 21, Chloride Level 106, Creatinine 0.71, Estimat Glomerular Filtration Rate > 60, Glucose Level 221H, Potassium Level 3.7, Sodium Level 135, Total Bilirubin 0.4, Total Protein 6.6, Vancomycin Level Trough 9.4L 06/14/16 21:34: Glucometer 245H 06/15/16 04:45: Anion Gap 8, BUN/Creatinine Ratio 13, Blood Urea Nitrogen 9, Calcium Level 8.1L , Carbon Dioxide Level 18L, Chloride Level 110H, Creatinine 0.69, Estimat Glomerular Filtration Rate > 60, Glucose Level 181H, Potassium Level 4.5, Sodium Level 136, Basophils # (Auto) 0.0, Basophils (%) (Auto) 0, Eosinophils # (Auto) 0.4H, Eosinophils (%) (Auto) 5, Hematocrit 38, Hemoglobin 13.0, Hemoglobin A1c 11.7H, Lymphocytes # (Auto) 3.3, Lymphocytes (%) (Auto) 35, Mean Corpuscular Hemoglobin 28, Mean Corpuscular Hemoglobin Concent 35, Mean Corpuscular Volume 80, Mean Platelet Volume 10.1, Monocytes # (Auto) 0.4, Monocytes (%) (Auto) 5, Neutrophils # (Auto) 5.4, Neutrophils (%) (Auto) 56, Platelet Count 323, Red Blood Count 4.69, Red Cell Distribution Width 13.3, Thyroid Stimulating Hormone (TSH) 4.21, White Blood Count 9.6 06/15/16 10:49: Glucometer 148H Microbiology 06/13/16 Blood Culture - Preliminary, Resulted No growth 06/13/16 MRSA Screen - Final, Complete MRSA not isolated 06/13/16 Urine Culture - Preliminary, Resulted Radiology CT pelvis 06/13: IMPRESSION: 1.: There is a 2.6 cm x 1.8 cm x 4.5 cm (AP x Trans x CC) area of amorphous density involving the medial gluteus subcutaneous fat which is adjacent to the anus. It is unknown if this represents a cyst or infectious or inflammatory process. 2.: There are two other small areas of skin thickening with adjacent fat stranding which are superficial and involve the medial right upper thigh region and left mons pubis region. These are superficial lesions. Assessment/Plan Assessment/Plan Admission Dx 1. Perirectal abscess 2. Uncontrolled DMII Plan 1. Perirectal abscess -Surgery consulted, I&D done in OR with packing, cultures pending -Continue vancomycin 2. Uncontrolled DM- resume home medications and sliding scale insulin, diabetic diet 06/15 A1c 11.7; Discussed mechanism of action of levemir and she states she understands and will take it DVT ppx- SCDs Diagnosis/Problems: Clinical Quality Measures DVT/VTE Risk/Contraindication: Risk Factor Score Per Nursin RFS Level Per Nursing on Admit: 2=Moderate MARY NUÑEZ MD Jun 15, 2016 14:19
[2016-06-15] MEDS ORDERED: ACETAMINOPHEN 325 MG TABLET/CAPLET (TYLENOL) PO PRN (14:30)
--- NOTE | 2016-06-15 15:52 | Anesthesia-General Post-Op ---
General Patient Condition Mental Status/LOC: Same as Preop Cardiovascular: Satisfactory Nausea/Vomiting: Absent Respiratory: Satisfactory Pain: Controlled Complications: Absent Post Op Complications Complications None Follow Up Care/Instructions Patient Instructions None needed. Anesthesia/Patient Condition Patient Condition Patient is doing well, no complaints, stable vital signs, no apparent adverse anesthesia problems. No complications reported per nursing. MICHAEL DOUGLASS CRNA Jun 15, 2016 15:52
[2016-06-15 16:54] VITALS: BP 106/59
[2016-06-15] MEDS ORDERED: HYDROmorphone (DILAUDID) 2 MG/ML VIAL IVP PRN (18:00)
--- NOTE | 2016-06-15 18:21 | Progress Note ---
Subjective Subjective/Events-last exam Pt seen and examined, with nurse in the room. She was told that unfortunately she is growing MRSA; which made her very upset and tearful. She states her pain is "bad". Tolerating diet. Review of Systems General: No Chills, No Night Sweats Pulmonary: No Dyspnea, No Cough Cardiovascular: No: Chest Pain, Palpitations Objective Exam Vital Signs Date Time Temp Pulse Resp B/P Pulse Ox O2 Delivery O2 Flow Rate FiO2 06/15/16 16:54 97.1 77 18 106/59 100 Room Air 06/15/16 12:00 98.6 82 20 134/84 96 Room Air 06/15/16 08:23 99.4 91 20 115/61 96 Room Air 06/14/16 23:56 98.8 86 20 93/61 97 Room Air 06/14/16 21:00 Room Air 06/14/16 20:00 99.2 76 18 110/56 96 Room Air I & O 06/15/16 07:00 Intake Total 4040 ml Output Total 4 ml Balance 4036 ml Capillary Refill : Less Than 3 Seconds General Appearance: WD/WN Mild Distress HEENT: PERRL/EOMI Pharynx Normal Respiratory: Lungs Clear Cardiovascular: Regular Rate, Rhythm Gastrointestinal: normal bowel sounds non tender soft Skin: Other (removed packing, starting to granulate, ? necrotic tissue still) Results Lab Laboratory Tests 06/14/16 20:16: Alanine Aminotransferase (ALT/SGPT) 28, Albumin 3.3, Alkaline Phosphatase 71, Anion Gap 8, Aspartate Amino Transf (AST/SGOT) 22, BUN/Creatinine Ratio 13, Blood Urea Nitrogen 9, Calcium Level 8.3L, Carbon Dioxide Level 21, Chloride Level 106, Creatinine 0.71, Estimat Glomerular Filtration Rate > 60, Glucose Level 221H, Potassium Level 3.7, Sodium Level 135, Total Bilirubin 0.4, Total Protein 6.6, Vancomycin Level Trough 9.4L 06/14/16 21:34: Glucometer 245H 06/15/16 04:45: Anion Gap 8, BUN/Creatinine Ratio 13, Blood Urea Nitrogen 9, Calcium Level 8.1L , Carbon Dioxide Level 18L, Chloride Level 110H, Creatinine 0.69, Estimat Glomerular Filtration Rate > 60, Glucose Level 181H, Potassium Level 4.5, Sodium Level 136, Basophils # (Auto) 0.0, Basophils (%) (Auto) 0, Eosinophils # (Auto) 0.4H, Eosinophils (%) (Auto) 5, Hematocrit 38, Hemoglobin 13.0, Hemoglobin A1c 11.7H, Lymphocytes # (Auto) 3.3, Lymphocytes (%) (Auto) 35, Mean Corpuscular Hemoglobin 28, Mean Corpuscular Hemoglobin Concent 35, Mean Corpuscular Volume 80, Mean Platelet Volume 10.1, Monocytes # (Auto) 0.4, Monocytes (%) (Auto) 5, Neutrophils # (Auto) 5.4, Neutrophils (%) (Auto) 56, Platelet Count 323, Red Blood Count 4.69, Red Cell Distribution Width 13.3, Thyroid Stimulating Hormone (TSH) 4.21, White Blood Count 9.6 06/15/16 10:49: Glucometer 148H 06/15/16 15:58: Glucometer 152H Microbiology 06/13/16 Blood Culture - Preliminary, Resulted No growth 06/13/16 MRSA Screen - Final, Complete MRSA not isolated 06/13/16 Urine Culture - Preliminary, Resulted 06/14/16 Gram Stain - Final, Resulted 06/14/16 Anaerobic Culture, Resulted Pending 06/14/16 Surgical Culture - Preliminary, Resulted Staphylococcus Aureus Assessment/Plan Assessment/Plan Assessment/Plan Gluteal Abscess -S/P I&D with packing. MRS positive she is on Vanco. Will add Bactroban to other areas in inguinal crease and labia. Dilaudid for pain control during dressing changes. DM - uncontrolled Morbid Obesity Clinical Quality Measures DVT/VTE Risk/Contraindication: Risk Factor Score Per Nursin RFS Level Per Nursing on Admit: 2=Moderate DREA CHASE DO Jun 15, 2016 18:21
[2016-06-15] MEDS: MUPIROCIN 2% OINT 22 GM (BACTROBAN) TUBE TOP SCH (21:00)
[2016-06-16] VITALS: BP 116/66
[2016-06-16] MEDS: fentaNYL INJECTION 100 MCG/2 ML AMP IV PRN ×6 (00:14→15:10)
[2016-06-16] MEDS: NS IV 1000 ML 1,000 ML IV SCH ×2 (03:09→03:28)
[2016-06-16] MEDS: VANCOMYCIN 1500 MG/NS 500 ML IVPB IV SCH ×4 (04:32→13:00)
[2016-06-16 04:58] LABS: BASOPHILS % (AUTO) 0 % (0-10); EOSINOPHILS # (AUTO) 0.4 10^3/uL (0.0-0.3); EOSINOPHILS % (AUTO) 5 % (0-10); LYMPHOCYTES % (AUTO) 41 % (12-44); MEAN CORPUSCULAR HEMOGLOBIN 28 PG (25-34); MEAN CORPUSCULAR HGB CONC 35 G/DL (32-36); MEAN CORPUSCULAR VOLUME 80 FL (80-99); MEAN PLATELET VOLUME 10.1 FL (7.4-10.4); MONOCYTES # (AUTO) 0.4 X 10^3 (0.0-1.0); MONOCYTES % (AUTO) 5 % (0-12); NEUTROPHILS # (AUTO) 3.6 X 10^3 (1.8-7.8); NEUTROPHILS % (AUTO) 49 % (42-75); PLATELET COUNT 312 10^3/uL (130-400); RED BLOOD COUNT 4.83 10^6/uL (4.35-5.85); RED CELL DISTRIBUTION WIDTH 13.1 % (10.0-14.5); WHITE BLOOD COUNT 7.4 10^3/uL (4.3-11.0)
[2016-06-16 05:19] LABS: ANION GAP 11 MMOL/L (5-14); BLOOD UREA NITROGEN 6 MG/DL (7-18); BUN/CREATININE RATIO 9; CALCIUM 8.1 MG/DL (8.5-10.1); CARBON DIOXIDE 17 MMOL/L (21-32); CHLORIDE 111 MMOL/L (98-107); CREATININE SERUM 0.64 MG/DL (0.60-1.30); GFR ESTIMATED > 60; GLUCOSE 136 MG/DL (70-105); POTASSIUM 3.6 MMOL/L (3.6-5.0); SODIUM 139 MMOL/L (135-145)
[2016-06-16] MEDS: inSUlin (REGULAR) HUMAN 1 UNIT/0.01 ML (CHARGE PER UNIT) SC SCH ×2 (05:43→11:50)
--- NOTE | 2016-06-16 07:40 | PROCEDURE REPORT ---
PROCEDURE PHYSICIAN: DREA CHASE DATE OF PROCEDURE: 06/14/2016 PREOPERATIVE DIAGNOSIS: Left gluteal abscess. POSTOPERATIVE DIAGNOSIS: Left gluteal abscess, pending pathology. PROCEDURE: Incision and drainage with debridement of necrotic tissue and packing of this area. SURGEON: Dr. Duke MANCILLA ASSIST: None. ANESTHESIA: General endotracheal tube by MACHINE WORKER with approximately 10 mL of local injected by myself. SPECIMEN: Wound culture as well as necrotic tissue. BLOOD LOSS: Approximately 20 mL. FLUIDS: Per anesthesia. POSTOPERATIVE: Stable. INDICATIONS FOR THE PROCEDURE: The patient is a 36 female who is an uncontrolled diabetic. She has had an abscess on her left gluteal cheek for at least a month and is finally allowing us to do an incision and drainage. FINDINGS: The patient had a large area of necrotic tissue that measured 5 x 3 and went back about 6 cm with purulent fluid in it. PROCEDURE NOTE: After informed consent was obtained, the patient was brought to the operating room, placed on table in lithotomy position. She then sterilely prepped and in normal fashion. Local lidocaine was used to infiltrate the skin as well as around this area. Then made an incision with number 15 blade, carried down through skin into the subcutaneous tissue. Immediately got some purulent fluid and some bleeding. We got a wound culture of this purulent fluid and then started dissecting the area tracked up superiorly and back toward the vagina but did not go towards the rectum. It went back about 6 cm. I started looking at the edges of the skin and noted that they were and necrotic so I then had to remove this skin and necrotic tissue. Debrided area about 5 x 3 cm and at least a centimeter deep but some of the debridement was carried backwards about 6 cm back as well. The area was then irrigated. Hemostasis was obtained using electrocautery and then elected to pack with a 1/2 inch iodoform packing. Then the skin was clean and dried and a pressure dressing placed. The patient transferred to recovery room in stable condition. Sponge and needle counts were correct at the end of the case. Job ID: [id number] Dictated Date: 06/14/2016 14:52:29 Cigar Patcher Date: 06/16/2016 07:30:21 / melo
[2016-06-16 08:05] VITALS: BP 118/64
[2016-06-16] MEDS ORDERED: LEVO50TA6 PO (09:04)
[2016-06-16] MEDS: LEVOTHYROXINE 75 MCG (LEVOTHROID) TABLET PO SCH (09:14)
[2016-06-16] MEDS: KETOROLAC 30 MG/ML VIAL IV PRN (09:15)
[2016-06-16] MEDS: MUPIROCIN 2% OINT 22 GM (BACTROBAN) TUBE TOP SCH (10:39)
[2016-06-16] MEDS: TROUGH ORDER-PHARMACY XX NR ×2 (12:13→12:30)
[2016-06-16] MEDS ORDERED: LEVO75TA PO (12:26)
[2016-06-16] MEDS ORDERED: CLIN300C11 PO (12:29)
[2016-06-16] MEDS ORDERED: HYDR-3731 PO (12:29)
[2016-06-16] MEDS ORDERED: ONDA8TAB9 PO (12:30)
--- NOTE | 2016-06-16 12:45 | Progress Note-Hospitalist ---
Standard Progress Note Progress Notes/Assess & Plan Date Seen 06/16/16 Assess & Plan/Chief Complaint The patient is a 36-year-old white female who apparently went to grade school with my daughter. She reports that she has diabetic and was admitted for abscess in the perineum. Dr. Wall has opened this and packed it. He agrees that she is ready for discharge but will need home health nursing for dressing changes. Physical exam: The patient is quite pleasant. She is very obese. Lungs are clear to auscultation. CV is regular without murmur. Impression: Type I diabetes. 2.perineal abscess Plan: Discharge. See discharge sequence for details. Labs Laboratory Tests 06/14/16 20:16 06/15/16 04:45 06/16/16 04:05 MIESHA CHAN MD Jun 16, 2016 12:45
--- NOTE | 2016-06-16 13:14 | Progress Note ---
Subjective Subjective/Events-last exam Pt seen and examined, tolerating diet. Pain mostly controlled. Review of Systems Cardiovascular: No: Chest Pain Gastrointestinal: No: Abdominal Pain Objective Exam Vital Signs Date Time Temp Pulse Resp B/P Pulse Ox O2 Delivery O2 Flow Rate FiO2 06/16/16 08:05 98.8 81 16 118/64 97 Room Air 06/16/16 00:00 98.3 83 20 116/66 97 Room Air 06/15/16 16:54 97.1 77 18 106/59 100 Room Air I & O 06/16/16 06:59 Intake Total 6875 ml Balance 6875 ml Capillary Refill : Less Than 3 Seconds General Appearance: WD/WN Mild Distress HEENT: PERRL/EOMI Pharynx Normal Respiratory: Lungs Clear Cardiovascular: Regular Rate, Rhythm Gastrointestinal: normal bowel sounds non tender soft Results Lab Laboratory Tests 06/15/16 15:58: Glucometer 152H 06/15/16 20:56: Glucometer 207H 06/16/16 04:05: Anion Gap 11, BUN/Creatinine Ratio 9, Basophils # (Auto) 0.0, Basophils (%) ( Auto) 0, Blood Urea Nitrogen 6L, Calcium Level 8.1L, Carbon Dioxide Level 17L, Chloride Level 111H, Creatinine 0.64, Eosinophils # (Auto) 0.4H, Eosinophils (% ) (Auto) 5, Estimat Glomerular Filtration Rate > 60, Glucose Level 136H, Hematocrit 38, Hemoglobin 13.4, Lymphocytes # (Auto) 3.0, Lymphocytes (%) (Auto ) 41, Mean Corpuscular Hemoglobin 28, Mean Corpuscular Hemoglobin Concent 35, Mean Corpuscular Volume 80, Mean Platelet Volume 10.1, Monocytes # (Auto) 0.4, Monocytes (%) (Auto) 5, Neutrophils # (Auto) 3.6, Neutrophils (%) (Auto) 49, Platelet Count 312, Potassium Level 3.6, Red Blood Count 4.83, Red Cell Distribution Width 13.1, Sodium Level 139, White Blood Count 7.4 06/16/16 11:51: Glucometer 149H Microbiology 06/13/16 Blood Culture - Preliminary, Resulted No growth 06/13/16 MRSA Screen - Final, Complete MRSA not isolated 06/13/16 Urine Culture - Final, Complete 06/14/16 Gram Stain - Final, Resulted 06/14/16 Anaerobic Culture - Preliminary, Resulted No anaerobes isolated 06/14/16 Surgical Culture - Preliminary, Resulted Staphylococcus Aureus Streptococcus Viridans Assessment/Plan Assessment/Plan Assessment/Plan Gluteal Abscess -S/P I&D with packing. MRS positive she can be switched to orals.. Will add Bactroban to other areas in inguinal crease and labia. OK to D/C home, home health to help with dressing changes DM - uncontrolled Morbid Obesity Clinical Quality Measures DVT/VTE Risk/Contraindication: Risk Factor Score Per Nursin RFS Level Per Nursing on Admit: 2=Moderate DREA CHASE DO Jun 16, 2016 13:14
[2016-06-16 16:15] VITALS: BP 118/64
--- NOTE | 2016-06-26 12:14 | Discharge Summary ---
Diagnosis/Chief Complaint Date of Admission Jun 13, 2016 at 19:47 Date of Discharge Jun 16, 2016 at 16:16 Discharge Date: Jun 16, 2016 Admission Diagnosis Admission Diagnosis Gluteal/makayla-anal abscess Uncontrolled DM Obesity Hypothyroidism Hx of Depression Discharge Diagnosis Gluteal/makayla-anal abscess Uncontrolled DM Obesity Hypothyroidism Hx of Depression Reason Hospital Visit Pt is a 36 y.o. female with complaints of abscess on her left gluteal cheek, "near my rectum". She states it has been there about a month and half. It has not gotten better, pain is getting worse (she rates it at at least a 7 out of 10). She is an uncontrolled diabetic, blood sugars have been over 500. She has not come in until now because she was terrified of it being "lanced in the ER". She states she didn't eat much today, but is hungry now. Discharge Summary Procedures: I&D with Debridement and packing of gluteal abscess Consultations Hospitalist for help with DM, Hypothyroidism and Depression Discharge Physical Examination Allergies: Coded Allergies: latex (Unverified Allergy, Mild, RASH, ITCHING, 01/25/13) Uncoded Allergies: TAPE (Allergy, Mild, 05/23/09) General Appearance: Alert, No Acute Distress Respiratory: Clear to Auscultation, Normal Air Movement Cardiovascular: Regular Rate, No Murmurs Neuro: Normal Speech Psych/Mental Status: Mental Status NL Hospital Course See chart for full details. Pt presented with gluteal abscess, started on IVF and IV ABX. Taking to OR on hospital day 2; see Op note. IV ABX continued, pt improved slowly. PT, OT, Home Health and social service consulted to help transition pt home. She improved over the course of hospital stay. Cultures came back as MRSA and ABX switched. Subsequently discharged home on oral ABX with Home health to help with packing of incision. Discharge Instructions to patient/family Please see electonic discharge instructions given to patient. Discharge Medications Reviewed and agree with Discharge Medication list on patient's Discharge Instruction sheet Clinical Quality Measures DVT/VTE Risk/Contraindication: Risk Factor Score Per Nursin RFS Level Per Nursing on Admit: 2=Moderate DREA CHASE DO Jun 26, 2016 12:14
== END 2016-06-16 16:16 | disposition home health service (06) | DRG 571 ==
LOC: EDUNIT# 17:33 → ER 17:35 → 4TH 19:47
PROVIDERS: ADMIT Family Medicine; ATTEND Family Medicine
PROC: 0JB90ZZ Excision of Buttock Subcutaneous Tissue and Fascia, Open Approach (ICD-10-PCS; principal; 2016-06-14 10:16)
DX: L02.31 Cutaneous abscess of buttock (principal); B95.62 Methicillin resistant Staphylococcus aureus infection as the cause of diseases classified elsewhere; L02.214 Cutaneous abscess of groin; L02.415 Cutaneous abscess of right lower limb; L02.215 Cutaneous abscess of perineum; E66.01 Morbid (severe) obesity due to excess calories; Z68.41 Body mass index [BMI] 40.0-44.9, adult; E11.65 Type 2 diabetes mellitus with hyperglycemia; E03.9 Hypothyroidism, unspecified; F17.210 Nicotine dependence, cigarettes, uncomplicated; Z79.4 Long term (current) use of insulin; Z91.19 Patient's noncompliance with other medical treatment and regimen
CPT/HCPCS: 36415; 72193; 80048; 80053; 80202; 81000; 82962; 83036; 83605; 84443; 84703; 85025; 87040; 87070; 87075; 87077; 87081; 87088; 87186; 87205; 88304; 96361; 96365; 96375

== ENCOUNTER 2016-12-31 21:51 | Emergency (ER) | payer MEDICAID ==
[~2016-12-31] VITALS: Ht 162.6 cm; Wt 115.7 kg
[~2016-12-31 21:51] MED LIST changes: +CLIN300C11 PO; +HYDR-3731 PO; +LEVO50TA6 PO; +LEVO75TA PO; +LEVO75TA6 PO; +LIRA0.6P3 SQ; +METF-478 PO
--- OUTSIDE RECORDS SUMMARY | 2016-12-31 21:57 | XMS REPORT ---
Author Author DAISY ROSEN [facility] Address [address] [place] [address] Care Team Providers Care Overlock Waistline Joiner Name Role Phone DAISY ROSEN Unavailable PROBLEMS Type Condition ICD9-CM Code [id number] Code Onset Dates Condition Status SNOMED Code Problem Hypercholesteremia E78.0 Active 56001623 Problem Fibrocystic breast, left N60.12 Active 11343433 Problem Anxiety F41.9 Active 39020198 Problem BMI 45.0-49.9, adult Z68.42 Active 600538401 Problem Surveillance of contraceptive injection Z30.42 Active 428628225 Problem Chest pain, unspecified R07.9 Active 47546833 Problem Fibrocystic breast, right N60.11 Active 53701130 Problem Abdominal pain, left upper quadrant R10.12 Active 326505944 Problem Tobacco use Z72.0 Active 666726879 Problem Anxiety disorder, unspecified F41.9 Active 218387106 Problem Cannabis use disorder, mild, abuse F12.10 Active 81468824 Assessment Pain of left leg M79.605 05 Mar, 2016 Active 15450448 Problem Diabetes E11.9 Active 52523009 Problem Ganglion of joint M67.40 Active 22491149 Problem Type 2 diabetes mellitus E11.9 Active 25584924 ALLERGIES Unknown Allergies SOCIAL HISTORY No smoking Hx information available PLAN OF CARE VITAL SIGNS MEDICATIONS Medication Instructions Dosage Frequency Start Date End Date Duration Status Ativan 0.5 MG Orally Once a day 1 tablet as needed 24h 21 Oct, 2014 28 days Active Tramadol HCl 50 mg Orally 2 times a day 1 tablet 12h 12 Feb, 2015 28 days Active RESULTS No Results PROCEDURES No Known procedures IMMUNIZATIONS No Known Immunizations
--- OUTSIDE RECORDS SUMMARY | 2016-12-31 21:57 | XMS REPORT ---
Author Author DAISY ROSEN Organization [employer] Address Unknown Phone Unavailable Care Team Providers Care Lead Oracle Developer Name Role Phone DAISY ROSEN CP Unavailable Allergies No Known Allergies Problems Problem Type Condition Code Onset Dates Condition Status Problem Diabetes mellitus without mention of complication, type II or unspecified type, not stated as uncontrolled 250.00 Active Problem Nondependent tobacco use disorder 305.1 Active Problem Nondependent cannabis abuse, unspecified 305.20 Active Problem Diabetes mellitus without mention of complication, type II or unspecified type, uncontrolled 250.02 Active Problem Diabetes E11.9 Active Problem Unspecified hypothyroidism 244.9 Active Problem Ganglion of joint 727.41 Active Problem 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
--- OUTSIDE RECORDS SUMMARY | 2016-12-31 21:57 | XMS REPORT ---
Author Author CHRISTINA BRAUN [employer] Address Unknown Phone Unavailable Care Team Providers Care Fast Food Worker Name Role Phone CHRISTINA BRAUN Unavailable Allergies, Adverse Reactions, Alerts Substance Reaction Event Type N.K.D.A. Info Not Available Non Drug Allergy Problems Problem Type Condition Code Onset Dates Condition Status Assessment Anxiety F41.9 Active Assessment Fibrocystic breast, left N60.12 Active Assessment Fibrocystic breast, right N60.11 Active Problem Cannabis use disorder, mild, abuse F12.10 Active Assessment Chest pain, unspecified R07.9 Active Problem Diabetes E11.9 Active Assessment Weight loss R63.4 Active Problem Type 2 diabetes mellitus E11.9 Active Problem Anxiety F41.9 Active Problem Hypercholesteremia E78.0 Active Problem Surveillance of contraceptive injection Z30.42 Active Problem Abdominal pain, left upper quadrant R10.12 Active Assessment Type 2 diabetes mellitus E11.9 Active Assessment Abdominal pain, left upper quadrant R10.12 Active Problem BMI 45.0-49.9, adult Z68.42 Active Assessment Tobacco use Z72.0 Active Problem Fibrocystic breast, right N60.11 Active Problem Fibrocystic breast, left N60.12 Active Problem Tobacco use Z72.0 Active Problem Chest pain, unspecified R07.9 Active Assessment Surveillance of contraceptive injection Z30.42 Active Assessment BMI 45.0-49.9, adult Z68.42 Active Assessment Hypercholesteremia E78.0 Active Assessment Routine screening for STI (sexually transmitted infection) Z11.3 Active Problem Ganglion of joint M67.40 Active Problem Anxiety disorder, unspecified F41.9 Active Assessment Encounter for screening for malignant neoplasm of cervix Z12.4 Active Assessment Well woman exam Z01.419 Active Medications Medication Code System Code Instructions Start Date End Date Status Dosage TRUEtest Test [facility] [id number] TEST THREE TIMES DAILY Ativan [facility] [address]-92 0.5 MG Orally Once a day prn November 14, 2014 1 tablet as needed metformin NDC 0 500 mg May 22, 2014 2 tablet by Oral route 2 times per day Levemir FlexTouch [facility] 44788322180 100 UNIT/ML INJECT 10 UNITS SUBCUTANEOUSLY DAILY PER INSULIN SLIDING SCALE Glimepiride [facility] 27989177887 2 MG TAKE 1 TABLET BY MOUTH EVERY MORNING (TAKE WITH BREAKFAST OR THE FIRST MEAL OF THE DAY) MetFORMIN HCl ER [facility] 28941201626 500 MG TAKE TWO TABLETS BY MOUTH TWICE DAILY UltiCare Micro Pen [place] [facility] 86439825021 32G X 4 MM USE WITH VICTOZA TWICE DAILY DIRECTED Tramadol HCl [facility] [address]-57 50 MG Orally 2 times a day Mar 08, 2015 1 tablet Victoza [facility] 03593469544 18 MG/3ML INJECT 1.8 MG (0.3 ML) BY SUBCUTANEOUS ROUTE 1 TIME PER DAY Procedures Procedure Coding System Code Date No Charge CPT-4 03588 May 31, 2015 SPECIMEN HANDLING CPT-4 38191 May 31, 2015 TRICHOMONAS ASSAY W/OPTIC CPT-4 29668 May 31, 2015 Preventive Care Est Pt. Age 18-39 CPT-4 61661 May 31, 2015 Vital Signs Date/Time: May 31, 2015 Temperature 97.1 F Weight 265.4 lbs Height 64 in BMI 45.55 Index Blood Pressure Diastolic 82 mmHg Blood Pressure Systolic 117 mmHg Cardiac Monitoring Heart Rate 90 bpm Results No Known Results Summary Purpose eClinicalWorks Submission
--- OUTSIDE RECORDS SUMMARY | 2016-12-31 21:57 | XMS REPORT ---
Author Author DAISY ROSEN Organization [employer] Address Unknown Phone Unavailable Care Team Providers Care Rewriter Name Role Phone DAISY ROSEN CP Unavailable Allergies No Known Allergies Problems Problem Type Condition Code Onset Dates Condition Status Problem Type 2 diabetes mellitus E11.9 Active Problem Anxiety F41.9 Active Problem Hypercholesteremia E78.0 Active Problem Surveillance of contraceptive injection Z30.42 Active Problem Abdominal pain, left upper quadrant R10.12 Active Problem BMI 45.0-49.9, adult Z68.42 Active Problem Fibrocystic breast, right N60.11 Active Problem Fibrocystic breast, left N60.12 Active Problem Tobacco use Z72.0 Active Problem Chest pain, unspecified R07.9 Active Problem Ganglion of joint M67.40 Active Problem Anxiety disorder, unspecified F41.9 Active Problem Cannabis use disorder, mild, abuse F12.10 Active Problem Diabetes E11.9 Active Medications Medication Code System Code Instructions Start Date End Date Status Dosage Ativan [facility] [address]-33 0.5 MG Orally Once a day November 14, 2014 1 tablet as needed Tramadol HCl [facility] [address]-98 50 mg Orally 2 times a day Mar 08, 2015 1 tablet Results No Known Results Summary Purpose eClinicalWorks Submission
--- OUTSIDE RECORDS SUMMARY | 2016-12-31 21:57 | XMS REPORT ---
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 Problem Nondependent cannabis abuse, unspecified 305.20 Active Problem Ganglion of joint 727.41 Active Problem Diabetes mellitus without mention of complication, type II or unspecified type, not stated as uncontrolled 250.00 Active Problem Anxiety state, unspecified 300.00 Active Problem Unspecified hypothyroidism 244.9 Active Medications Medication Code System Code Instructions Start Date End Date Status Dosage Ativan [facility] [address]-71 0.5 MG Orally Once a day prn November 14, 2014 1 tablet as needed Results No Known Results Summary Purpose eClinicalWorks Submission
--- OUTSIDE RECORDS SUMMARY | 2016-12-31 21:58 | XMS REPORT ---
Author Author DAISY ROSEN [facility] eClinicalWorks Address Unknown Phone Unavailable Care Team Providers Care Freezer Person Name Role Phone DAISY ROSEN CP Unavailable Allergies, Adverse Reactions, Alerts Substance Reaction Event Type N.K.D.A. Info Not Available Non Drug Allergy Problems Problem Type Condition ICD-9 Code Onset Dates Condition Status Problem Nondependent tobacco use disorder 305.1 Active Assessment Mastodynia, female 611.71 Active Problem Diabetes mellitus without mention of [...] Instructions Start Date End Date Status Dosage metformin NDC 0 500 mg May 22, 2014 2 tablet by Oral route 2 times per day Levemir FlexTouch [facility] [address]-69 100 unit/mL (3 mL) May 22, 2014 inject 15 Units by Subcutaneous route as per insulin sliding scale protocol 1 time per day Ativan [facility] [address]-29 0.5 MG Orally Once a day prn November 14, 2014 1 tablet as needed Glimepiride [facility] [address]-55 2 MG Orally Once a day in the AM October 04, 2014 1 tablet with breakfast or the first main meal of the day Victoza [facility] [address]-50 18 MG/3ML Subcutaneous Once a day 0.2 ml Naproxen [facility] [address]-46 500 MG Orally every 12 hrs Dec 21, 2014 July 19, 2015 1 tablet as needed Procedures Procedure Coding System Code Date Office Visit, Est Pt., Level 3 CPT-4 27255 Dec 21, 2014 Vital Signs Date/Time: Dec 21, 2014 Temperature 98.0 F Weight 271.8 lbs Height 64 in BMI 46.65 Index Blood Pressure Diastolic 76 mmHg Blood Pressure Systolic 112 mmHg Cardiac Monitoring Heart Rate 104 bpm Results No Known Results Summary Purpose eClinicalWorks Submission
--- OUTSIDE RECORDS SUMMARY | 2016-12-31 21:58 | XMS REPORT ---
Author Author DAISY ROSEN [facility] eClinicalWorks Address Unknown Phone Unavailable Care Team Providers Care Collar Trimmer Name Role Phone DAISY ROSEN CP Unavailable Allergies No Known Allergies Problems Problem Type Condition Code Onset Dates Condition Status Problem Diabetes mellitus without mention of complication, type II or unspecified type, not stated as uncontrolled 250.00 Active Problem Unspecified hypothyroidism 244.9 Active Problem Ganglion of joint 727.41 Active Problem Nondependent tobacco use disorder 305.1 Active Problem Type 2 diabetes mellitus E11.9 Active Problem Diabetes E11.9 Active Problem Hypercholesteremia E78.0 Active Problem 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 Problem Anxiety state, unspecified 300.00 Active Problem Nondependent cannabis abuse, unspecified 305.20 Active Problem Diabetes mellitus without mention of complication, type II or unspecified type, uncontrolled 250.02 Active Medications Medication Code System Code Instructions Start Date End Date Status Dosage Tramadol HCl [facility] [address]-60 50 MG Orally 2 times a day Mar 08, 2015 1 tablet Ativan [facility] [address]-45 0.5 MG Orally Once a day prn November 14, 2014 1 tablet as needed Results No Known Results Summary Purpose eClinicalWorks Submission
--- OUTSIDE RECORDS SUMMARY | 2016-12-31 21:58 | XMS REPORT ---
Author Author DAISY ROSEN [facility] eClinicalWorks Address Unknown Phone Unavailable Care Team Providers Care Director Of Hotel Operations Name Role Phone DAISY ROSEN CP Unavailable Allergies, Adverse Reactions, Alerts Substance Reaction Event Type N.K.D.A. Info Not Available Non Drug Allergy Problems Problem Type Condition Code Onset Dates Condition Status Problem Type 2 diabetes mellitus E11.9 Active Problem Anxiety F41.9 Active Problem Hypercholesteremia E78.0 Active Problem Surveillance of contraceptive injection Z30.42 Active Assessment Palpitations R00.2 Active Problem Abdominal pain, left upper quadrant R10.12 Active Assessment Hypothyroid E03.9 Active Assessment Discharge of breast N64.52 Active Problem BMI 45.0-49.9, adult Z68.42 Active Problem Fibrocystic breast, right N60.11 Active Problem Fibrocystic breast, left N60.12 Active Problem Tobacco use Z72.0 Active Problem Chest pain, unspecified R07.9 Active Assessment Pain in right leg M79.604 Active Assessment Left upper quadrant pain R10.12 Active Assessment Other chest pain R07.89 Active Assessment Pain of left leg M79.605 Active Problem Ganglion of joint M67.40 Active Problem Anxiety disorder, unspecified F41.9 Active Assessment Right foot pain M79.671 Active Problem Cannabis use disorder, mild, abuse F12.10 Active Assessment Hyperlipidemia, unspecified hyperlipidemia type E78.5 Active Assessment Diabetes E11.9 Active Problem Diabetes E11.9 Active Medications Medication Code System Code Instructions Start Date End Date Status Dosage Victoza [facility] 29262316767 18 MG/3ML INJECT 1.8 MG (0.3 ML) BY SUBCUTANEOUS ROUTE 1 TIME PER DAY Levemir FlexTouch [facility] [address]-17 100 UNIT/ML Subcutaneous Once a day INJECT 25 UNITS SUBCUTANEOUSLY DAILY PER INSULIN SLIDING SCALE MetFORMIN HCl ER [facility] 79023567693 500 MG TAKE TWO TABLETS BY MOUTH TWICE DAILY Levothyroxine Sodium [facility] 69965529215 50 MCG Orally Once a day 1 tablet Tramadol HCl [facility] [address]-14 50 mg Orally 2 times a day Mar 08, 2015 1 tablet UltiCare Micro Pen [place] [facility] 80420663969 32G X 4 MM USE WITH VICTOZA TWICE DAILY DIRECTED TRUEtest Test [facility] 04315181877 TEST THREE TIMES DAILY Glimepiride [facility] [address]-25 2 MG Orally Once a day 1 tablet with first meal of day Ativan [facility] [address]-53 0.5 MG Orally Once a day November 14, 2014 1 tablet as needed Procedures Procedure Coding System Code Date X-RAY EXAM OF FOOT CPT-4 24446 Jan 24, 2016 Office Visit, Est Pt., Level 4 CPT-4 11347 Jan 24, 2016 GLYCATED HEMOGLOBIN TEST CPT-4 29644 Jan 24, 2016 Vital Signs Date/Time: Jan 24, 2016 Cardiac Monitoring Heart Rate 88 bpm Weight 265 lbs Height 64 in BMI 45.48 Index Blood Pressure Diastolic 80 mmHg Blood Pressure Systolic 120 mmHg Results Name Result Date Reference Range Unit Abnormality Flag A1C (IN HOUSE) ----A1C IN HOUSE 9.5 20160124 4.3 - 5.6 % ----Previous A1c 8.0 20160124 ----Lot [id number] ----Exp date 20160124 Xray : Foot, Right 2 views (IN HOUSE) Summary Purpose eClinicalWorks Submission
--- OUTSIDE RECORDS SUMMARY | 2016-12-31 21:58 | XMS REPORT ---
Author Author DAISY ROSEN Organization eClinicalWorks Address Unknown Phone Unavailable Care Team Providers Care Shafting Worker Name Role Phone DAISY ROSEN CP Unavailable [...] Instructions Start Date End Date Status Dosage Glimepiride [facility] [address]-99 2 MG Orally Once a day 1 tablet with first meal of day Results No Known Results Summary Purpose eClinicalWorks Submission
--- OUTSIDE RECORDS SUMMARY | 2016-12-31 21:58 | XMS REPORT ---
Author Author DAISY ROSEN [facility] eClinicalWorks Address Unknown Phone Unavailable Care Team Providers Care Vacuum Drum Drier Operator Name Role Phone DAISY ROSEN CP Unavailable Allergies, Adverse Reactions, Alerts Substance Reaction Event Type N.K.D.A. Info Not Available Non Drug Allergy Problems Problem Type Condition Code Onset Dates Condition Status Assessment Diabetes E11.9 Active Problem Diabetes mellitus without mention of complication, type II or unspecified type, not stated as uncontrolled 250.00 Active Problem Nondependent tobacco use disorder 305.1 Active Assessment Myalgia M79.1 Active Assessment Eustachian tube dysfunction, right H69.81 Active Problem Nondependent cannabis abuse, unspecified 305.20 Active Problem Diabetes mellitus without mention of complication, type II or unspecified type, uncontrolled 250.02 Active Problem Diabetes E11.9 Active Problem Unspecified hypothyroidism 244.9 Active Problem Ganglion of joint 727.41 Active Problem 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 72582349737 100 UNIT/ML INJECT 10 UNITS SUBCUTANEOUSLY DAILY PER INSULIN SLIDING SCALE Ativan [facility] [address]-92 0.5 MG Orally Once a day prn November 14, 2014 1 tablet as needed metformin ND 0 500 mg May 22, 2014 2 tablet by Oral route 2 times per day Victoza [facility] [address]-06 18 MG/3ML Subcutaneous Once a day 0.2 ml Tramadol HCl [facility] [address]-19 50 MG Orally 2 times a day Mar 08, 2015 1 tablet Flonase [facility] [address]-69 50 MCG/ACT Nasally 2 times a day Mar 08, 2015 1 spray in each nostril Glimepiride [facility] 13451580137 2 MG TAKE 1 TABLET BY MOUTH EVERY MORNING (TAKE WITH BREAKFAST OR THE FIRST MEAL OF THE DAY) Procedures Procedure Coding System Code Date Office Visit, Est Pt., Level 3 CPT-4 07690 Mar 08, 2015 GLYCATED HEMOGLOBIN TEST CPT-4 50313 Mar 08, 2015 Vital Signs Date/Time: Mar 08, 2015 Temperature 97.1 F Weight 275.1 lbs Height 64 in BMI 47.22 Index Blood Pressure Diastolic 82 mmHg Blood Pressure Systolic 124 mmHg Cardiac Monitoring Heart Rate 92 bpm Results Name Result Date Reference Range Unit Abnormality Flag A1C (IN HOUSE) Summary Purpose eClinicalWorks Submission
--- OUTSIDE RECORDS SUMMARY | 2016-12-31 21:58 | XMS REPORT ---
Author Author DAISY ROSEN Organization eClinicalWorks Address Unknown Phone Unavailable Care Team Providers Care Music Composition Teacher Name Role Phone DAISY ROSEN CP Unavailable [...] Start Date End Date Status Dosage Ativan [facility] [address]-54 0.5 MG Orally Once a day prn November 14, 2014 1 tablet as needed Tramadol HCl [facility] [address]-65 50 MG Orally 2 times a day Mar 08, 2015 1 tablet Results No Known Results Summary Purpose eClinicalWorks Submission
--- OUTSIDE RECORDS SUMMARY | 2016-12-31 21:58 | XMS REPORT ---
Author Author DAISY ROSEN [facility] Address [address] [place] [address] Care Team Providers Care Business Intelligence Reporting Analyst Name Role Phone DAISY ROSEN Unavailable PROBLEMS Type Condition ICD9-CM Code [id number] Code Onset Dates Condition Status SNOMED Code Problem Fibrocystic breast, right N60.11 Active 88124336 Problem Tobacco use Z72.0 Active 473513175 Problem Chest pain, unspecified R07.9 Active 07546589 Problem Hypothyroid E03.9 Active 65323920 Problem Hypercholesteremia E78.0 Active 28679624 Problem Surveillance of contraceptive injection Z30.42 Active 278044839 Problem Abdominal pain, left upper quadrant R10.12 Active 436263726 Problem Type 2 diabetes mellitus E11.9 Active 91517375 Problem BMI 45.0-49.9, adult Z68.42 Active 314172190 Problem Cannabis use disorder, mild, abuse F12.10 Active 83378293 Problem Diabetes E11.9 Active 37002594 Problem Ganglion of joint M67.40 Active 38714823 Problem Anxiety F41.9 Active 10446183 Problem Anxiety disorder, unspecified F41.9 Active 858309403 Problem Fibrocystic breast, left N60.12 Active 72014658 ALLERGIES Unknown Allergies SOCIAL HISTORY No smoking Hx information available PLAN OF CARE VITAL SIGNS MEDICATIONS Unknown Medications RESULTS Name Result Date Reference Range CRP 2016-01-28 C-Reactive Protein, Quant 1.7 0.0-4.9 CHRISTIAN ANALYZER 2016-01-28 CHRISTIAN Direct Negative Negative See below: TSH 2016-01-28 TSH 5.540 0.450-4.500 CBC 2016-01-28 WBC 10.2 3.4-10.8 RBC 5.63 3.77-5.28 Hemoglobin 15.8 11.1-15.9 Hematocrit 45.7 34.0-46.6 MCV 81 79-97 MCH 28.1 26.6-33.0 MCHC 34.6 31.5-35.7 RDW 14.1 12.3-15.4 Platelets 374 150-379 Neutrophils 49 Lymphs 41 Monocytes 4 Eos 5 Basos 1 Immature Cells Neutrophils (Absolute) 5.0 1.4-7.0 Lymphs (Absolute) 4.2 0.7-3.1 Monocytes(Absolute) 0.4 0.1-0.9 Eos (Absolute) 0.5 0.0-0.4 Baso (Absolute) 0.1 0.0-0.2 Immature Granulocytes 0 Immature Grans (Abs) 0.0 0.0-0.1 NRBC Hematology Comments: RA (RHEUMATOID) FACTOR 2016-01-28 RA Latex Turbid. <10.0 0.0-13.9 CMP 2016-01-28 Glucose, Serum 253 65-99 BUN 10 6-20 Creatinine, Serum 0.71 0.57-1.00 eGFR If NonAfricn Am 111 >59 eGFR If Africn Am 128 >59 BUN/Creatinine Ratio 14 8-20 Sodium, Serum 134 134-144 Potassium, Serum 4.9 3.5-5.2 Chloride, Serum 98 97-108 Carbon Dioxide, Total 19 18-29 Calcium, Serum 9.3 8.7-10.2 Protein, Total, Serum 7.2 6.0-8.5 Albumin, Serum 4.2 3.5-5.5 Globulin, Total 3.0 1.5-4.5 A/G Ratio 1.4 1.1-2.5 Bilirubin, Total 0.3 0.0-1.2 Alkaline Phosphatase, S 70 39-117 AST (SGOT) 35 0-40 ALT (SGPT) 45 0-32 ESR/SED RATE (IN HOUSE) 2016-01-28 SED/ESR RATE 11 mm/hr Lot # [id number] Exp Date 24 Jun 2016 0 - 20 mm PROCEDURES Procedure Date Ordered Related Diagnosis Body Site [email or web address] Jan 28, 2016 RBC SED RATE, NONAUTOMATED Jan 28, 2016 VENIPUNCT, ROUTINE* Jan 28, 2016 IMMUNIZATIONS No Known Immunizations
--- OUTSIDE RECORDS SUMMARY | 2016-12-31 21:59 | XMS REPORT ---
Author Author DAISY ROSEN Organization eClinicalWorks Address Unknown Phone Unavailable Care Team Providers Care Structural Draftsman Name Role Phone DAISY ROSEN CP Unavailable [...] F12.10 Active Problem Diabetes E11.9 Active Medications No Known Medications Results No Known Results Summary Purpose eClinicalWorks Submission
--- OUTSIDE RECORDS SUMMARY | 2016-12-31 21:59 | XMS REPORT ---
Author Author DAISY ROSEN [facility] Address [address] [place] [address] Care Team Providers Care Health Clinician Name Role Phone DAISY ROSEN Unavailable PROBLEMS Type Condition ICD9-CM Code [id number] Code Onset Dates Condition Status SNOMED Code Problem Fibrocystic breast, right N60.11 Active 67115400 Problem Tobacco use Z72.0 Active 829127242 Problem Chest pain, unspecified R07.9 Active 70147675 Problem Hypothyroid E03.9 Active 39307832 Problem Hypercholesteremia E78.0 Active 35048107 Problem Surveillance of contraceptive injection Z30.42 Active 801955026 Problem Abdominal pain, left upper quadrant R10.12 Active 967556015 Problem Type 2 diabetes mellitus E11.9 Active 67262211 Problem BMI 45.0-49.9, adult Z68.42 Active 145888613 Problem Cannabis use disorder, mild, abuse F12.10 Active 84681309 Problem Diabetes E11.9 Active 21816227 Problem Ganglion of joint M67.40 Active 49115726 Problem Anxiety F41.9 Active 26626617 Problem Anxiety disorder, unspecified F41.9 Active 225297039 Problem Fibrocystic breast, left N60.12 Active 98233122 ALLERGIES Unknown Allergies SOCIAL HISTORY No smoking Hx information available PLAN OF CARE VITAL SIGNS MEDICATIONS Unknown Medications RESULTS No Results PROCEDURES No Known procedures IMMUNIZATIONS No Known Immunizations
--- OUTSIDE RECORDS SUMMARY | 2016-12-31 21:59 | XMS REPORT ---
Author Author DAISY ROSEN [facility] Address [address] [place] [address] Care Team Providers Care Billing Rep Name Role Phone DAISY ROSEN Unavailable PROBLEMS Type Condition ICD9-CM Code [id number] Code Onset Dates Condition Status SNOMED Code Problem Hypercholesteremia E78.0 Active 85027321 Problem Fibrocystic breast, left N60.12 Active 78580115 Problem Anxiety F41.9 Active 87274107 Problem BMI 45.0-49.9, adult Z68.42 Active 206232316 Problem Surveillance of contraceptive injection Z30.42 Active 047488770 Problem Chest pain, unspecified R07.9 Active 63061179 Problem Fibrocystic breast, right N60.11 Active 93199220 Problem Abdominal pain, left upper quadrant R10.12 Active 366122374 Problem Tobacco use Z72.0 Active 902123326 Problem Anxiety disorder, unspecified F41.9 Active 485867720 Problem Cannabis use disorder, mild, abuse F12.10 Active 03510171 Problem Diabetes E11.9 Active 80280478 Problem Ganglion of joint M67.40 Active 28927776 Problem Type 2 diabetes mellitus E11.9 Active 35215413 ALLERGIES Unknown Allergies SOCIAL HISTORY No smoking Hx information available PLAN OF CARE VITAL SIGNS MEDICATIONS Medication Instructions Dosage Frequency Start Date End Date Duration Status Tramadol HCl 50 mg Orally 2 times a day 1 tablet 12h 12 Feb, 2015 28 days Active Ativan 0.5 MG Orally Once a day 1 tablet as needed 24h 21 Oct, 2014 28 days Active RESULTS No Results PROCEDURES No Known procedures IMMUNIZATIONS No Known Immunizations
--- OUTSIDE RECORDS SUMMARY | 2016-12-31 21:59 | XMS REPORT ---
Author Author DAISY ROSEN [facility] [place] eClinicalWorks Address Unknown Phone Unavailable Care Team Providers Care Pourer Crane Ladle Name Role Phone DAISY ROSEN CP Unavailable [...] use disorder, mild, abuse F12.10 Active Assessment Type 2 diabetes mellitus E11.9 Active Problem Diabetes E11.9 Active Medications Medication Code System Code Instructions Start Date End Date Status Dosage UltiCare Micro Pen [place] [facility] [place] 12493290891 32G X 4 MM USE WITH VICTOZA TWICE DAILY DIRECTED Levemir FlexTouch [facility] [place] [address]-87 100 UNIT/ML Subcutaneous Once a day INJECT 25 UNITS SUBCUTANEOUSLY DAILY PER INSULIN SLIDING SCALE Glimepiride [facility] [place] [address]-63 2 MG Orally Once a day 1 tablet with first meal of day MetFORMIN HCl ER [facility] [place] 23404444749 500 MG TAKE TWO TABLETS BY MOUTH TWICE DAILY Tramadol HCl [facility] [place] [address]-46 50 mg Orally 2 times a day Mar 08, 2015 1 tablet Victoza [facility] [place] [address]-83 18 MG/3ML Subcutaneous Once a day inject 1.8 MG TRUEtest Test [facility] [place] [id number] TEST THREE TIMES DAILY Levothyroxine Sodium [facility] [place] [address]-55 75 MCG Orally Once a day 1 tablet Ativan [facility] [place] [address]-63 0.5 MG Orally Once a day November 14, 2014 1 tablet as needed Results No Known Results Summary Purpose eClinicalWorks Submission
--- OUTSIDE RECORDS SUMMARY | 2016-12-31 21:59 | XMS REPORT ---
Author Author CHRISTINA BRAUN [facility] eClinicalWorks Address Unknown Phone Unavailable Care Team Providers Care Dredge Hand Name Role Phone CHRISTINA BRAUN Unavailable Allergies No Known Allergies Problems Problem [...]
--- OUTSIDE RECORDS SUMMARY | 2016-12-31 21:59 | XMS REPORT ---
Author Author DAISY ROSEN Organization eClinicalWorks Address Unknown Phone Unavailable Care Team Providers Care Cost Clerk Name Role Phone DAISY ROSEN CP Unavailable [...] Start Date End Date Status Dosage Ativan [facility] [address]-81 0.5 MG Orally Once a day November 14, 2014 1 tablet as needed Tramadol HCl [facility] [address]-72 50 mg Orally 2 times a day Mar 08, 2015 1 tablet Results No Known Results Summary Purpose eClinicalWorks Submission
[2016-12-31 23:08] LABS: BILIRUBIN,URINE NEGATIVE (NEGATIVE); KETONES,URINE 1+ (NEGATIVE); LEUKOCYTE ESTERASE ,URINE 2+ (NEGATIVE); NITRITE,URINE NEGATIVE (NEGATIVE); PH,URINE 5 (5-9); PROTEIN,URINE 1+ (NEGATIVE); UROBILINOGEN,URINE NORMAL (NORMAL)
[2016-12-31] MEDS ORDERED: NS IV 1000 ML 1,000 ML IV ONE (23:19)
[2016-12-31] MEDS ORDERED: KETOROLAC 30 MG/ML VIAL IVP STA (23:19)
--- NOTE | 2016-12-31 23:19 | ED GU-Female ---
General Chief Complaint: -Female Stated Complaint: VAGINAL BURNING Nursing Triage Note: PT STATES SHE HAS BEEN HAVING VAGINAL PAIN SINCE THURSDAY. PT STATES "IT FEELS LIKE I GOT CUT DOWN THE MIDDLE OF MY VAGINA". PT COMPLAINS OF NAUSEA SINCE THURSDAY ALSO. PT STATES SHE STARTED TAKING BACTRIUM THAT SHE HAD SITTING AT HOME THINKING IT MAY HELP AND IT HASN'T. Nursing Sepsis Screen: No Definite Risk Source: patient, family (daughter), other (daughter's boyfriend) Exam Limitations: no limitations History of Present Illness Time seen by provider: 23:05 Initial Comments 36-year-old female patient presents to the emergency department with complaints of vaginal pain beginning approximately 2 weeks ago. Patient reports symptoms began worse over the last 2-3 days. Patient states she did take 3 days of Bactrim when she had left over from previous urinary tract infection as well as one Diflucan left over from a yeast infection 1 year ago. Patient states she stopped checking her blood sugars at home because "I lost some weight and thought they would be better." Denies contacting her PCP for symptoms. Timing/Duration: getting worse, other (2 wk onset) Severity/Quality: burning Location: vaginal Activities at Onset: none Prior Genitourinary Problems: similar symptoms Sexual [place] History: less than 2 months ago, single partner Modifying Factors: Worsens With Urinating Allergies and Home Medications Allergies Coded Allergies: latex (Unverified Allergy, Mild, RASH, ITCHING, 01/25/13) Uncoded Allergies: TAPE (Allergy, Mild, 05/23/09) Home Medications Aspirin/Acetaminophen/Caffeine 1 Tab Tablet, 2 TAB PO Q6H PRN for PAIN, ( Reported) Clindamycin HCl 300 Mg Capsule, 300 MG PO 3 times a day, #30 Prescribed by: MIESHA CHAN on 06/16/16 1229 Glimepiride 2 Mg Tablet, 2 MG PO DAILY, (Reported) LAST FILLED #90 11-16-15 Hydrocodone/Acetaminophen 1 Each Tablet, 1 EACH PO Q ID, #30 Prescribed by: MIESHA CHAN on 06/16/16 1229 Insulin Determir 1,000 Units/10 Ml Soln, 30 UNITS SQ HS, (Reported) LAST FILLED 01-15-16 Levothyroxine Sodium 75 Mcg Tablet, 75 MCG PO DAILY, #30 Prescribed by: MIESHA CHAN on 06/16/16 1226 Liraglutide 0.6 Mg/0.1 Ml Pen.injctr, 1.8 MG SQ HS, (Reported) LAST FILLED 03-04-16 Metformin HCl 500 Mg Tab.er.24, 1,000 MG PO BID, (Reported) LAST FILLED #360 12-06-15 TAKES 2 (500MG) TABLETS Ondansetron 8 Mg Tab.rapdis, 8 MG PO Q4H, #30 Prescribed by: MIESHA CHAN on 06/16/16 1230 Constitutional: No chills, No fever, No malaise Respiratory: no symptoms reported Cardiovascular: no symptoms reported Gastrointestinal: abdominal pain (suprapubic), No constipation, No diarrhea, nausea, No vomiting Genitourinary: see HPI, burning, denies discharge, dysuria, denies frequency, denies flank pain, denies hematuria Musculoskeletal: no symptoms reported Skin: no symptoms reported Psychiatric/Neurological: No Symptoms Reported All Other Systemes Reviewed Negative Unless Noted: Yes (Negative excepted noted.) Past Aaiycab-Icwakm-Fopyce Hx Patient Social History Alcohol Use: Denies Use Recreational Drug Use: No Smoking Status: Current Everyday Smoker Type Used: Cigarettes 2nd Hand Smoke Exposure: Yes Recent Foreign Travel: No Contact w/Someone Who Travel: No Recent Infectious Disease Expo: No Recent Hopitalizations: No Physical Abuse: No Sexual Abuse: No Immunizations Up To Date Tetanus Booster (TDap): Unknown PED Vaccines UTD: No Seasonal Allergies Seasonal Allergies: No Surgeries History of Surgeries: Yes (LEEP; X 4; MULTIPLE I&D'S OF ABSCESSES) Surgeries: Adenoidectomy, Section, Gallbladder, Tonsillectomy Respiratory History of Respiratory Disorde: No Cardiovascular History of Cardiac Disorders: No Neurological History of Neurological Disord: No Reproductive System Hx Reproductive Disorders: No Genitourinary History of Genitourinary Disor: No Gastrointestinal History of Gastrointestinal Di: No Musculoskeletal History of Musculoskeletal Dis: No Endocrine History of Endocrine Disorders: Yes (ADMIT 06/13/16 FOR POORLY CONTROLLED DM, NON COMPLIANCY) Endocrine Disorders: Diabetes, Insulin dep HEENT History of HEENT Disorders: Yes (WEARS GLASSES) Loss of Vision: Denies Hearing Impairment: Denies Cancer History of Cancer: No Psychosocial History of Psychiatric Problem: No Suicide Risk Score: 0 Integumentary History of Skin or Integumenta: Yes (MULTIPLE ABSCESSES AND I&D'S --STAPH) Blood Transfusions History of Blood Disorders: No Adverse Reaction to a Blood Tr: No Reviewed Nursing Assessment Reviewed/Agree w Nursing PMH: Yes Family Medical History Significant Family History: COPD, Diabetes, Psychiatric Problems, Stroke Family Medial History: Alcoholism Alzheimer's disease Arthritis 19 MOTHER Asthma 19 MOTHER Cataracts Completed stroke Diabetes mellitus 19 FATHER 19 MOTHER Drug abuse Glaucoma Osteoporosis Psychosocial problem Respiratory disorder Severe allergy Thyroid disease 19 MOTHER Visual disorder 19 MOTHER No Family History of: AIDS Abdominal aortic aneurysm Francis's disease Aphasia Cancer of mouth Cardiovascular disease Colon cancer Congenital disease Congenital heart disease Coronary thrombosis Cystic fibrosis Deafness or hearing loss Dementia Dysphasia Fibrocystic disease of breast Gastroenteritis Headache disorder Hypercholesterolemia Hypertension Infertility Kidney disease Myocardial infarction Neoplasm Not obtainable due to adoption Parkinson's disease Prostate cancer Seizure disorder Tuberculosis Physical Exam Vital Signs Vital Sign - Last 12Hours 12/31/16 22:24 Temp 97.9 Pulse 99 Resp 20 B/P (MAP) 134/80 Pulse Ox 96 O2 Delivery Room Air Capillary Refill : Less Than 3 Seconds General Appearance: WD/WN, no apparent distress, obese HEENT: PERRL/EOMI, pharynx normal Neck: supple, normal inspection Cardiovascular: normal peripheral pulses, regular rate, rhythm, no edema, no murmur Respiratory: lungs clear, normal breath sounds, no respiratory distress, no accessory muscle use Gastrointestinal: normal bowel sounds, soft, no organomegaly, No distended, No guarding, No rebound, tenderness (suprapubic tenderness) Pelvic: no masses, discharge (white dsch), No mass, No vaginal bleeding, other (scaly erythematous rash of the perineum and external genitalia consistent with candidiasis.) Back: normal inspection Extremities: no pedal edema, normal capillary refill Neurologic/Psychiatric: alert, normal mood/affect, oriented x 3 Skin: normal color, warm/dry, rash (scaly erythematous rash of the perineum and external genitalia consistent with candidiasis.) Progress/Results/Core Measures Results/Orders Lab Results Laboratory Tests Test 12/31/16 22:58 01/01/17 00:09 01/01/17 00:13 Range/Units Urine Color YELLOW Urine Clarity CLEAR Urine pH 5 5-9 Urine Specific [place] 1.020 1.016-1.022 Urine Protein 1+ H NEGATIVE Urine Glucose (UA) 4+ H NEGATIVE Urine Ketones 1+ H NEGATIVE Urine Nitrite NEGATIVE NEGATIVE Urine Bilirubin NEGATIVE NEGATIVE Urine Urobilinogen NORMAL NORMAL MG/DL Urine Leukocyte Esterase 2+ H NEGATIVE Urine RBC (Auto) 1+ H NEGATIVE Urine RBC RARE /HPF Urine WBC 5-10 H /HPF Urine Squamous Epithelial Cells 2-5 /HPF Urine Crystals NONE /LPF Urine Bacteria FEW H /HPF Urine Casts NONE /LPF Urine Mucus NEGATIVE /LPF Urine Culture Indicated YES White Blood Count 11.8 H 4.3-11.0 10^3/uL Red Blood Count 5.26 4.35-5.85 10^6/uL Hemoglobin 14.6 11.5-16.0 G/DL Hematocrit 42 35-52 % Mean Corpuscular Volume 79 L 80-99 FL Mean Corpuscular Hemoglobin 28 25-34 PG Mean Corpuscular Hemoglobin Concent 35 32-36 G/DL Red Cell Distribution Width 13.4 10.0-14.5 % Platelet Count 326 130-400 10^3/uL Mean Platelet Volume 9.9 7.4-10.4 FL Neutrophils (%) (Auto) 58 42-75 % Lymphocytes (%) (Auto) 32 12-44 % Monocytes (%) (Auto) 5 0-12 % Eosinophils (%) (Auto) 4 0-10 % Basophils (%) (Auto) 1 0-10 % Neutrophils # (Auto) 6.9 1.8-7.8 X 10^3 Lymphocytes # (Auto) 3.7 1.0-4.0 X 10^3 Monocytes # (Auto) 0.6 0.0-1.0 X 10^3 Eosinophils # (Auto) 0.5 H 0.0-0.3 10^3/uL Basophils # (Auto) 0.1 0.0-0.1 10^3/uL My Orders Orders - TIFFANY CARRASCO Saline Lock/Iv-Start (12/31/16 23:19) Cbc With Automated Diff (12/31/16 23:19) Comprehensive Metabolic Panel (12/31/16 23:19) Ketorolac Injection (Toradol Injection) (12/31/16 23:19) Ns Iv 1000 Ml (Sodium Chloride 0.9%) (12/31/16 23:19) Wet Prep (12/31/16 23:19) Neisseria Gonorrhea Dna (12/31/16 23:19) Chlamydia Dna (12/31/16 23:19) Genital Culture (12/31/16 23:19) Medications Given in ED Current Medications Medications Dose Ordered Sig/Laura Route Start Time Stop Time Status Last Admin Dose Admin Sodium Chloride 1,000 ml @ 0 mls/hr Q0M ONCE IV 12/31/16 23:19 12/31/16 23:21 DC 01/01/17 00:08 1,000 MLS/HR Vital Signs/I&O Vital Sign - Last 12Hours 12/31/16 22:24 Temp 97.9 Pulse 99 Resp 20 B/P (MAP) 134/80 Pulse Ox 96 O2 Delivery Room Air Blood Pressure Mean: 98 Point of Care Testing Urine -Bedside: Negative Departure Impression Impression: Primary Impression: Vulvovaginal candidiasis Additional Impressions: Urinary tract infection Medical non-compliance Disposition: HOME, SELF-CARE Condition: Improved Departure-Patient Inst. Decision time for Depature: 00:36 Referrals: [facility] (PCP) Primary Care Physician DAISY ROSEN (Family) Primary Care Physician Patient Instructions: Vaginal Yeast Infection (DC) Add. Discharge Instructions: All discharge instructions reviewed with patient and/or family. Voiced understanding. Medications as directed. Check blood sugars as instructed by your family practitioner. Take medications as prescribed and for the length of time your instructed. Follow-up with your family practitioner for recheck as an outpatient. Use [id number]-fedrqxi Monistat for topical symptom relief. Return in the emergency department for worsened symptoms or any other concerns. Scripts Fluconazole (Diflucan) 150 Mg Tablet 150 MG PO UD, #4 TAB 0 Refills 1 po q3d [id number] Prov: TIFFANY CARRASCO 01/01/17 Nitrofurantoin Monohyd/M-Cryst (Macrobid 100 mg Capsule) 100 Mg Capsule 1 TAB PO BID, #6 CAP 0 Refills Prov: TIFFANY CARRASCO 01/01/17 TIFFANY CARRASCO Dec 31, 2016 23:19
[2017-01-01 00:21] LABS: BASOPHILS # (AUTO) 0.1 10^3/uL (0.0-0.1); BASOPHILS % (AUTO) 1 % (0-10); EOSINOPHILS # (AUTO) 0.5 10^3/uL (0.0-0.3); EOSINOPHILS % (AUTO) 4 % (0-10); LYMPHOCYTES # (AUTO) 3.7 X 10^3 (1.0-4.0); LYMPHOCYTES % (AUTO) 32 % (12-44); MEAN CORPUSCULAR HEMOGLOBIN 28 PG (25-34); MEAN CORPUSCULAR HGB CONC 35 G/DL (32-36); MEAN CORPUSCULAR VOLUME 79 FL (80-99); MEAN PLATELET VOLUME 9.9 FL (7.4-10.4); MONOCYTES # (AUTO) 0.6 X 10^3 (0.0-1.0); MONOCYTES % (AUTO) 5 % (0-12); NEUTROPHILS # (AUTO) 6.9 X 10^3 (1.8-7.8); NEUTROPHILS % (AUTO) 58 % (42-75); PLATELET COUNT 326 10^3/uL (130-400); RED BLOOD COUNT 5.26 10^6/uL (4.35-5.85); RED CELL DISTRIBUTION WIDTH 13.4 % (10.0-14.5); WHITE BLOOD COUNT 11.8 10^3/uL (4.3-11.0)
[2017-01-01] MEDS ORDERED: FLUCONAZOLE 150 MG TABLET (ED ONLY) PO STA (00:29)
[2017-01-01] MEDS ORDERED: RX-HYDROCODONE/APAP 5/325 MG #4 TAB PK PO PRN (00:30)
[2017-01-01] MEDS ORDERED: NITR-65 PO (00:38)
[2017-01-01] MEDS ORDERED: FLUC150T PO (00:38)
[2017-01-01 00:48] LABS: ALANINE AMINOTRANSFERASE 34 U/L (0-55); ANION GAP 13 MMOL/L (5-14); ASPARTATE AMINO TRANSFERASE 28 U/L (5-34); BILIRUBIN,TOTAL 0.4 MG/DL (0.1-1.0); BLOOD UREA NITROGEN 11 MG/DL (7-18); BUN/CREATININE RATIO 13; CALCIUM 9.5 MG/DL (8.5-10.1); CARBON DIOXIDE 18 MMOL/L (21-32); CHLORIDE 105 MMOL/L (98-107); CREATININE SERUM 0.82 MG/DL (0.60-1.30); GFR ESTIMATED > 60; GLUCOSE 305 MG/DL (70-105); POTASSIUM 4.1 MMOL/L (3.6-5.0); SODIUM 136 MMOL/L (135-145); TOTAL PROTEIN 7.4 GM/DL (6.4-8.2)
[2017-01-01 00:58] VITALS: BP 134/80
== END 2017-01-01 00:58 | disposition home or self-care (01) ==
LOC: EDUNIT# 21:51 → ER 21:53
DX: B37.3 Candidiasis of vulva and vagina (principal); N39.0 Urinary tract infection, site not specified; E11.9 Type 2 diabetes mellitus without complications; F17.210 Nicotine dependence, cigarettes, uncomplicated; Z87.440 Personal history of urinary (tract) infections; Z90.89 Acquired absence of other organs; Z87.59 Personal history of other complications of pregnancy, childbirth and the puerperium; Z79.82 Long term (current) use of aspirin; Z79.84 Long term (current) use of oral hypoglycemic drugs; Z79.4 Long term (current) use of insulin; Z91.14 Patient's other noncompliance with medication regimen
CPT/HCPCS: 36415; 80053; 81000; 84703; 85025; 87070; 87088; 87210; 87491; 87591; 96361; 96374

== ENCOUNTER 2017-02-20 19:15 | Emergency (ER) | payer MEDICAID ==
[~2017-02-20] VITALS: Ht 162.6 cm; Wt 113.4 kg
[~2017-02-20 19:15] MED LIST changes: +NITR-65 PO
--- OUTSIDE RECORDS SUMMARY | 2017-02-20 19:36 | XMS REPORT ---
Author Author DAISY ROSEN [facility] Address [address] [place] [address] Care Team Providers Care Typesetter Apprentice Name Role Phone DAISY ROSEN Unavailable PROBLEMS Type Condition ICD9-CM Code [id number] Code Onset Dates Condition Status SNOMED Code Problem Tobacco use Z72.0 Active 078616953 Problem Fibrocystic breast, left N60.12 Active 67553985 Problem Chest pain, unspecified R07.9 Active 20141036 Problem Hypothyroid E03.9 Active 83093665 Problem Abdominal pain, left upper quadrant R10.12 Active 088061122 Problem Fibrocystic breast, right N60.11 Active 25453051 Problem Type 2 diabetes mellitus E11.9 Active 19353535 Problem Surveillance of contraceptive injection Z30.42 Active 777025030 Problem Hypercholesteremia E78.0 Active 07425598 Problem Anxiety disorder, unspecified F41.9 Active 522321562 Problem Diabetes E11.9 Active 41095389 Problem Cannabis use disorder, mild, abuse F12.10 Active 59812594 Problem BMI 45.0-49.9, adult Z68.42 Active 684920340 Problem Ganglion of joint M67.40 Active 79342672 Problem Anxiety F41.9 Active 83519602 ALLERGIES No Information SOCIAL HISTORY Never Assessed PLAN OF CARE VITAL SIGNS MEDICATIONS Unknown Medications RESULTS No Results PROCEDURES No Known procedures IMMUNIZATIONS No Known Immunizations MEDICAL (GENERAL) HISTORY Type Description Date Medical History type II diabetes Medical History obesity Medical History Hypothyroidism Medical History anxiety Medical History hyperlipidemia Surgical History section x 4 Surgical History tonsillectomy Surgical History cholecystectomy Surgical History adenoidectomy Surgical History [place]es [place] May 2016 Hospitalization History surgeries Hospitalization History Abses removed from [facility] May
--- OUTSIDE RECORDS SUMMARY | 2017-02-20 19:36 | XMS REPORT ---
Author Author MARY NUÑEZ [facility] Address [address] [place] [address] Care Team Providers Care Continuous Still Operator Name Role Phone MARY NUÑEZ Unavailable PROBLEMS Type Condition ICD9-CM Code [id number] Code Onset Dates Condition Status SNOMED Code Problem Tobacco use Z72.0 Active 206621689 Problem Fibrocystic breast, left N60.12 Active 70890420 Problem Chest pain, unspecified R07.9 Active 14958361 Problem Hypothyroid E03.9 Active 24505167 Problem Abdominal pain, left upper quadrant R10.12 Active 121879585 Problem Fibrocystic breast, right N60.11 Active 75266259 Problem Type 2 diabetes mellitus E11.9 Active 09616692 Problem Surveillance of contraceptive injection Z30.42 Active 547700800 Problem Hypercholesteremia E78.0 Active 32926451 Problem Anxiety disorder, unspecified F41.9 Active 005028780 Problem Diabetes E11.9 Active 83035731 Problem Cannabis use disorder, mild, abuse F12.10 Active 88326278 Problem BMI 45.0-49.9, adult Z68.42 Active 328150105 Problem Ganglion of joint M67.40 Active 72481575 Problem Anxiety F41.9 Active 54388261 ALLERGIES No Information SOCIAL HISTORY Never Assessed PLAN OF CARE VITAL SIGNS MEDICATIONS Medication Instructions Dosage Frequency Start Date End Date Duration Status Clindamycin HCl 300 MG Orally every 8 hrs 1 capsule 8h May, 2 Jun Active Hydrocodone-Acetaminophen 10-325 MG Orally 4 times a day 1 tablet as needed 6h Active UltiCare Micro Pen [place] 32G X 4 MM USE WITH VICTOZA TWICE DAILY DIRECTED 30 Active Excedrin Migraine 250-250-65 MG Orally every 6 hrs 2 tablets as needed 6h Active TRUEtest Test TEST THREE TIMES DAILY 32 Active Levemir FlexTouch 100 UNIT/ML Subcutaneous Once a day INJECT 30 units 24h Active Victoza 18 MG/3ML Subcutaneous Once a day inject 1.8 MG 24h 30 days Active Levothyroxine Sodium 75 MCG Orally Once a day 1 tablet 24h 90 Active MetFORMIN HCl ER 500 MG TAKE TWO TABLETS BY MOUTH TWICE DAILY 90 Active Glimepiride 2 MG Orally Once a day 1 tablet with first meal of day 24h 90 days Active Ondansetron 8 MG Orally every 4 hours as needed 1 tablet Active RESULTS No Results PROCEDURES No Known procedures IMMUNIZATIONS No Known Immunizations MEDICAL (GENERAL) HISTORY Type Description Date Medical History type II diabetes Medical History obesity Medical History Hypothyroidism Medical History anxiety Medical History hyperlipidemia Surgical History section x 4 Surgical History tonsillectomy Surgical History cholecystectomy Surgical History adenoidectomy Surgical History [place]es from [place] May 2016 Hospitalization History surgeries Hospitalization History Abses removed from [facility] May
--- OUTSIDE RECORDS SUMMARY | 2017-02-20 19:37 | XMS REPORT ---
Author Author DAISY ROSEN [facility] Address [address] [place] [address] Care Team Providers Care Vehicle Painter Name Role Phone DAISY ROSEN Unavailable PROBLEMS Type Condition ICD9-CM Code [id number] Code Onset Dates Condition Status SNOMED Code Problem Tobacco use Z72.0 Active 591797360 Problem Fibrocystic breast, left N60.12 Active 17272470 Problem Chest pain, unspecified R07.9 Active 69462393 Problem Hypothyroid E03.9 Active 77913906 Problem Abdominal pain, left upper quadrant R10.12 Active 748965991 Problem Fibrocystic breast, right N60.11 Active 29520807 Problem Type 2 diabetes mellitus E11.9 Active 72668390 Problem Surveillance of contraceptive injection Z30.42 Active 999618266 Problem Hypercholesteremia E78.0 Active 32339049 Problem Anxiety disorder, unspecified F41.9 Active 510286521 Problem Diabetes E11.9 Active 77544685 Problem Cannabis use disorder, mild, abuse F12.10 Active 04763776 Problem BMI 45.0-49.9, adult Z68.42 Active 344456485 Problem Ganglion of joint M67.40 Active 57660432 Problem Anxiety F41.9 Active 72247527 ALLERGIES No Information SOCIAL HISTORY Never Assessed PLAN OF CARE VITAL SIGNS MEDICATIONS Medication Instructions Dosage Frequency Start Date End Date Duration Status MetFORMIN HCl ER 500 MG Orally 2 times a day 2 tablets 12h 07 days Active RESULTS No Results PROCEDURES No [...] History surgeries Hospitalization History Abses removed from [facility] May
--- NOTE | 2017-02-20 20:26 | ED GU-Female ---
General Chief Complaint: -Female Stated Complaint: 9 WKS PREG/VAG BLEEDING/CRAMPING Source: patient Exam Limitations: no limitations History of Present Illness Time seen by provider: 20:25 Initial Comments To ER with abdominal cramping, bright red blood on the toilet paper when wiping starting this evening. She denies fevers or chills. She has not passed any clots or tissue. She is 9 weeks gestation. She is . She has seen Dr. Dacosta and was told everything looked good at that point about 2 weeks ago. Timing/Duration: just prior to arrival Severity/Quality: moderate Location: suprapubic Radiation: none Activities at Onset: none Prior Genitourinary Problems: none Allergies and Home Medications Allergies Coded Allergies: latex (Unverified Allergy, Mild, RASH, ITCHING, 01/25/13) Uncoded Allergies: TAPE (Allergy, Mild, 05/23/09) Home Medications Aspirin/Acetaminophen/Caffeine 1 Tab Tablet, 2 TAB PO Q6H PRN for PAIN, ( Reported) Clindamycin HCl 300 Mg Capsule, 300 MG PO 3 times a day, #30 Prescribed by: MIESHA CHAN on 06/16/16 1229 Fluconazole 150 Mg Tablet, 150 MG PO UD, #4 Ref 0 1 po q3d [id number] Prescribed by: TIFFANY CARRASCO on 01/01/17 0038 Glimepiride 2 Mg Tablet, 2 MG PO DAILY, (Reported) LAST FILLED #90 11-16-15 Hydrocodone/Acetaminophen 1 Each Tablet, 1 EACH PO Q ID, #30 Prescribed by: MIESHA CHAN on 06/16/16 1229 Insulin Determir 1,000 Units/10 Ml Soln, 30 UNITS SQ HS, (Reported) LAST FILLED 01-15-16 Levothyroxine Sodium 75 Mcg Tablet, 75 MCG PO DAILY, #30 Prescribed by: MIESHA CHAN on 06/16/16 1226 Liraglutide 0.6 Mg/0.1 Ml Pen.injctr, 1.8 MG SQ HS, (Reported) LAST FILLED 03-04-16 Metformin HCl 500 Mg Tab.er.24, 1,000 MG PO BID, (Reported) LAST FILLED #360 12-06-15 TAKES 2 (500MG) TABLETS Nitrofurantoin Monohyd/M-Cryst 100 Mg Capsule, 1 TAB PO BID, #6 Ref 0 Prescribed by: TIFFANY CARRASCO on 01/01/17 0038 Ondansetron 8 Mg Tab.rapdis, 8 MG PO Q4H, #30 Prescribed by: MIESHA CHAN on 06/16/16 1230 Constitutional: see HPI EENTM: see HPI Respiratory: no symptoms reported Cardiovascular: see HPI Genitourinary: no symptoms reported Musculoskeletal: no symptoms reported Skin: no symptoms reported Psychiatric/Neurological: No Symptoms Reported Endocrine: No Symptoms Reported Past Kpwnuee-[id number] Hx Patient Social History Alcohol Use: Denies Use Recreational Drug Use: Yes (thc and alcohol, 02/20-DENIES AT THIS TIME) Smoking Status: Current Everyday Smoker Type Used: Cigarettes 2nd Hand Smoke Exposure: Yes Recent Foreign Travel: No Contact w/Someone Who Travel: No Recent Hopitalizations: No Physical Abuse: No Sexual Abuse: No Mistreated: No Fear: No Immunizations Up To Date Tetanus Booster (TDap): Unknown PED Vaccines UTD: No Seasonal Allergies Seasonal Allergies: No Surgeries History of Surgeries: Yes (LEEP; X 4; MULTIPLE I&D'S OF ABSCESSES) Surgeries: Adenoidectomy, Section, Gallbladder, Tonsillectomy Respiratory History of Respiratory Disorde: No Cardiovascular History of Cardiac Disorders: No Neurological History of Neurological Disord: No Reproductive System Hx Reproductive Disorders: No Genitourinary History of Genitourinary Disor: No Gastrointestinal History of Gastrointestinal Di: No Musculoskeletal History of Musculoskeletal Dis: No Endocrine History of Endocrine Disorders: Yes (ADMIT 06/13/16 FOR POORLY CONTROLLED DM, NON COMPLIANCY) Endocrine Disorders: Diabetes, Insulin dep HEENT History of HEENT Disorders: Yes (WEARS GLASSES) Loss of Vision: Denies Hearing Impairment: Denies Cancer History of Cancer: No Psychosocial History of Psychiatric Problem: No Suicide Risk Score: 0 Integumentary History of Skin or Integumenta: Yes (MULTIPLE ABSCESSES AND I&D'S --STAPH) Blood Transfusions History of Blood Disorders: No Adverse Reaction to a Blood Tr: No Family Medical History Significant Family History: COPD, Diabetes, Psychiatric Problems, Stroke Family Medial History: Alcoholism Alzheimer's disease Arthritis 19 MOTHER Asthma 19 MOTHER Cataracts Completed stroke Diabetes mellitus 19 FATHER 19 MOTHER Drug abuse Glaucoma Osteoporosis Psychosocial problem Respiratory disorder Severe allergy Thyroid disease 19 MOTHER Visual disorder 19 MOTHER No Family History of: AIDS Abdominal aortic aneurysm Montague's disease Aphasia Cancer of mouth Cardiovascular disease Colon cancer Congenital disease Congenital heart disease Coronary thrombosis Cystic fibrosis Deafness or hearing loss Dementia Dysphasia Fibrocystic disease of breast Gastroenteritis Headache disorder Hypercholesterolemia Hypertension Infertility Kidney disease Myocardial infarction Neoplasm Not obtainable due to adoption Parkinson's disease Prostate cancer Seizure disorder Tuberculosis Physical Exam Vital Signs Vital Sign - Last 12Hours 02/20/17 20:16 Temp 97.5 Pulse 92 Resp 18 B/P (MAP) 121/80 Pulse Ox 95 O2 Delivery Room Air Capillary Refill : General Appearance: WD/WN, no apparent distress HEENT: PERRL/EOMI, normal ENT inspection Neck: non-tender, full range of motion Respiratory: no respiratory distress, no accessory muscle use Gastrointestinal: normal bowel sounds, non tender Extremities: normal range of motion, non-tender Neurologic/Psychiatric: alert, normal mood/affect, oriented x 3 Skin: normal color, warm/dry Progress/Results/Core Measures Results/Orders Lab Results Laboratory Tests Test 02/20/17 20:20 02/20/17 20:39 Range/Units Urine Color YELLOW Urine Clarity CLEAR Urine pH 5 5-9 Urine Specific [place] 1.020 1.016-1.022 Urine Protein 1+ H NEGATIVE Urine Glucose (UA) 4+ H NEGATIVE Urine Ketones 2+ H NEGATIVE Urine Nitrite NEGATIVE NEGATIVE Urine Bilirubin NEGATIVE NEGATIVE Urine Urobilinogen NORMAL NORMAL MG/DL Urine Leukocyte Esterase NEGATIVE NEGATIVE Urine RBC (Auto) 3+ H NEGATIVE Urine RBC 2-5 H /HPF Urine WBC NONE /HPF Urine Squamous Epithelial Cells 5-10 /HPF Urine Crystals NONE /LPF Urine Bacteria TRACE /HPF Urine Casts NONE /LPF Urine Mucus NEGATIVE /LPF Urine Culture Indicated NO White Blood Count 11.4 H 4.3-11.0 10^3/uL Red Blood Count 4.67 4.35-5.85 10^6/uL Hemoglobin 13.3 11.5-16.0 G/DL Hematocrit 37 35-52 % Mean Corpuscular Volume 79 L 80-99 FL Mean Corpuscular Hemoglobin 29 25-34 PG Mean Corpuscular Hemoglobin Concent 36 32-36 G/DL Red Cell Distribution Width 13.5 10.0-14.5 % Platelet Count 304 130-400 10^3/uL Mean Platelet Volume 9.5 7.4-10.4 FL Neutrophils (%) (Auto) 63 42-75 % Lymphocytes (%) (Auto) 27 12-44 % Monocytes (%) (Auto) 5 0-12 % Eosinophils (%) (Auto) 4 0-10 % Basophils (%) (Auto) 0 0-10 % Neutrophils # (Auto) 7.2 1.8-7.8 X 10^3 Lymphocytes # (Auto) 3.1 1.0-4.0 X 10^3 Monocytes # (Auto) 0.6 0.0-1.0 X 10^3 Eosinophils # (Auto) 0.5 H 0.0-0.3 10^3/uL Basophils # (Auto) 0.0 0.0-0.1 10^3/uL Human Chorionic Gonadotropin, Quant [id number] H <5 MIU/ML My Orders Orders - KIMBERLI FELTON APRN Cbc With Automated Diff (02/20/17 20:03) Ua Culture If Indicated (02/20/17 20:03) Hcg,Quantitative (02/20/17 20:03) Us Ob Transvaginal [id number] (02/20/17 20:24) Vital Signs/I&O Vital Sign - Last 12Hours 02/20/17 20:16 Temp 97.5 Pulse 92 Resp 18 B/P (MAP) 121/80 Pulse Ox 95 O2 Delivery Room Air Departure Communication (Admissions) Progress Notes Intrauterine with cardiac activity seen by mathematics technician. 2244- patient has been discharged but Lab called to report there may be a laboratory error in the beta hCG. It is measured at 15,000 at this time but they state that it might actually be higher than this due to the machine being unable to read higher than that. They will rerun it. Impression Impression: Primary Impression: Threatened miscarriage Disposition: 01 HOME, SELF-CARE Condition: Stable Departure-Patient Inst. Decision time for Depature: 21:55 Referrals: GEO DACOSTA DO (PCP) Primary Care Physician DAISY ROSEN (Family) Primary Care Physician Patient Instructions: Threatened Miscarriage Add. Discharge Instructions: 1. Follow-up with KIMBERLI Harris APRN Feb 20, 2017 20:26
[2017-02-20 20:38] LABS: BILIRUBIN,URINE NEGATIVE (NEGATIVE); KETONES,URINE 2+ (NEGATIVE); LEUKOCYTE ESTERASE ,URINE NEGATIVE (NEGATIVE); NITRITE,URINE NEGATIVE (NEGATIVE); PH,URINE 5 (5-9); PROTEIN,URINE 1+ (NEGATIVE); UROBILINOGEN,URINE NORMAL (NORMAL)
[2017-02-20 20:45] LABS: BASOPHILS % (AUTO) 0 % (0-10); EOSINOPHILS # (AUTO) 0.5 10^3/uL (0.0-0.3); EOSINOPHILS % (AUTO) 4 % (0-10); LYMPHOCYTES # (AUTO) 3.1 X 10^3 (1.0-4.0); LYMPHOCYTES % (AUTO) 27 % (12-44); MEAN CORPUSCULAR HEMOGLOBIN 29 PG (25-34); MEAN CORPUSCULAR HGB CONC 36 G/DL (32-36); MEAN CORPUSCULAR VOLUME 79 FL (80-99); MEAN PLATELET VOLUME 9.5 FL (7.4-10.4); MONOCYTES # (AUTO) 0.6 X 10^3 (0.0-1.0); MONOCYTES % (AUTO) 5 % (0-12); NEUTROPHILS # (AUTO) 7.2 X 10^3 (1.8-7.8); NEUTROPHILS % (AUTO) 63 % (42-75); PLATELET COUNT 304 10^3/uL (130-400); RED BLOOD COUNT 4.67 10^6/uL (4.35-5.85); RED CELL DISTRIBUTION WIDTH 13.5 % (10.0-14.5); WHITE BLOOD COUNT 11.4 10^3/uL (4.3-11.0)
[2017-02-20 22:02] VITALS: BP 125/88
--- NOTE | 2017-02-21 05:43 | Diagnostic Imaging Report ---
INDICATION: Spotting and cramping COMPARISON: None. TECHNIQUE: Transpelvic sonogram was performed. FINDINGS: There is a single, live intrauterine with a crown-rump length measuring 2.4 cm, which is consistent with a 9 week and 1 day fetus. heart rate was documented at 178 beats per minute. anatomy is not well seen at this early state of gestation. No adnexal masses are identified. The bilateral ovaries were unable to be visualized. No significant free fluid. Yolk sac is present. IMPRESSION: Single, live intrauterine at 9 weeks and 1 day. Estimated due date is September 24, 2017. No abnormality is seen at this time. Nonvisualization of the ovaries, though no abnormal adnexal mass lesion seen. Dictated by: Dictated on workstation # [id number]
== END 2017-02-20 22:02 | disposition home or self-care (01) ==
LOC: EDUNIT# 19:15 → ER 19:17
DX: O20.0 Threatened abortion (principal); O24.311 Unspecified pre-existing diabetes mellitus in pregnancy, first trimester; O99.331 Smoking (tobacco) complicating pregnancy, first trimester; F17.210 Nicotine dependence, cigarettes, uncomplicated; Z3A.09 9 weeks gestation of pregnancy; Z79.82 Long term (current) use of aspirin; Z87.59 Personal history of other complications of pregnancy, childbirth and the puerperium; Z90.89 Acquired absence of other organs; Z79.4 Long term (current) use of insulin
CPT/HCPCS: 36415; 76817; 81000; 84702; 85025; 99283

== ENCOUNTER 2018-01-12 06:08 | Outpatient (CLI) | payer MEDICAID ==
[~2018-01-12] VITALS: Ht 164.5 cm; Wt 123.4 kg
[~2018-01-12 06:08] MED LIST changes: +ACHD5005 PO; +GLYB5TAB6 PO; +HYDR-4226 PO; -HYDR-757 PO; +IBUP-1773 PO; +METF-761 PO; +TRAM50TA2 PO
[2018-01-12] MEDS ORDERED: LEVO75TA6 PO (09:49)
[2018-01-12] MEDS ORDERED: METF500T8 PO (09:49)
[2018-01-12] MEDS ORDERED: IBUP-1780 PO (09:49)
[2018-01-12] MEDS ORDERED: MISO200T4 PO (09:49)
[2018-01-12] MEDS ORDERED: GLYB5TAB6 PO (09:49)
== END 2018-01-12 09:53 | disposition home or self-care (01) ==
LOC: PREOP 06:08
PROVIDERS: ATTEND Obstetrics & Gynecology
DX: Z01.818 Encounter for other preprocedural examination (principal)

== ENCOUNTER 2018-01-13 10:50 | Day surgery (SDC) | payer MEDICAID ==
[~2018-01-13] VITALS: Ht 164.5 cm; Wt 123.4 kg
[~2018-01-13 10:50] MED LIST changes: +IBUP-1780 PO; +MISO200T4 PO
[2018-01-13 10:55] VITALS: BP 121/75
[2018-01-13] MEDS ORDERED: ceFAZolin INJECTION 1,000 MG in NS (IVPB) 50 ML IV ONE (11:15)
[2018-01-13] MEDS ORDERED: metroNIDAZOLE 500MG/100ML IVPB 100 ML IV ONE (11:15)
[2018-01-13 11:25] LABS: BASOPHILS % (AUTO) 0 % (0-10); EOSINOPHILS # (AUTO) 0.6 10^3/uL (0.0-0.3); EOSINOPHILS % (AUTO) 6 % (0-10); HEMATOCRIT 41 % (35-52); HEMOGLOBIN 14.9 G/DL (11.5-16.0); LYMPHOCYTES # (AUTO) 2.7 X 10^3 (1.0-4.0); LYMPHOCYTES % (AUTO) 27 % (12-44); MEAN CORPUSCULAR HEMOGLOBIN 28 PG (25-34); MEAN CORPUSCULAR HGB CONC 36 G/DL (32-36); MEAN CORPUSCULAR VOLUME 79 FL (80-99); MEAN PLATELET VOLUME 9.8 FL (7.4-10.4); MONOCYTES # (AUTO) 0.5 X 10^3 (0.0-1.0); MONOCYTES % (AUTO) 5 % (0-12); NEUTROPHILS # (AUTO) 6.2 X 10^3 (1.8-7.8); NEUTROPHILS % (AUTO) 62 % (42-75); PLATELET COUNT 347 10^3/uL (130-400); RED BLOOD COUNT 5.26 10^6/uL (4.35-5.85); RED CELL DISTRIBUTION WIDTH 14.5 % (10.0-14.5)
[2018-01-13 11:26] LABS: BILIRUBIN,URINE NEGATIVE (NEGATIVE); CLARITY,URINE CLEAR; COLOR,URINE YELLOW; GLUCOSE, URINE (UA) 4+ (NEGATIVE); KETONES,URINE 3+ (NEGATIVE); LEUKOCYTE ESTERASE ,URINE 1+ (NEGATIVE); NITRITE,URINE NEGATIVE (NEGATIVE); PH,URINE 5 (5-9); PROTEIN,URINE 1+ (NEGATIVE); UROBILINOGEN,URINE NORMAL (NORMAL)
[2018-01-13 11:35] LABS: BACTERIA,URINE TRACE /HPF
[2018-01-13] MEDS ORDERED: metroNIDAZOLE 500MG/100ML IVPB 100 ML ONE (11:41)
[2018-01-13] MEDS ORDERED: ceFAZolin 1,000 MG/10 ML (ANCEF) VIAL ONE (11:41)
[2018-01-13] MEDS ORDERED: FAMOTIDINE 20MG/2ML IV (PEPCID) ONE (11:41)
[2018-01-13] MEDS ORDERED: NS (IVPB) 50 ML ONE (11:42)
[2018-01-13] MEDS ORDERED: inSUlin ASPART (NovoLOG) 1 UNIT/0.01 ML (CHARGE PER UNIT) IV ONE (11:45)
[2018-01-13] MEDS ORDERED: FAMOTIDINE 20MG/2ML IV (PEPCID) IVP ONE (11:45)
[2018-01-13] MEDS ORDERED: ONDANSETRON 4 MG/2 ML (SDV) Z0FRAN IVP ONE (11:45)
[2018-01-13] MEDS ORDERED: MIDAZOLAM 2 MG/2 ML (VERSED) VIAL ONE (11:47)
[2018-01-13] MEDS ORDERED: fentaNYL INJECTION 100 MCG/2 ML AMP ONE ×2 (11:47→12:42)
[2018-01-13] MEDS ORDERED: proPOfol 200 MG/20 ML (DIPRIVAN) VIAL IV ONE ×2 (11:50→13:06)
[2018-01-13] MEDS ORDERED: LIDOCAINE PF 2% 2 ML (XYLOCAINE) VIAL ONE (11:50)
[2018-01-13] MEDS ORDERED: ONDANSETRON 4 MG/2 ML (SDV) Z0FRAN ONE (11:50)
[2018-01-13] MEDS ORDERED: SEVOFLURANE (ULTANE) 15 ML INHAL SOLN ONE ×2 (11:50→13:06)
[2018-01-13] MEDS: LACTATED RINGERS 1,000 ML IV PRN ×2 (11:57→13:52)
[2018-01-13] MEDS ORDERED: SUCCINYLCHOLINE INJ 100 MG/5 ML SYR ONE (12:02)
--- NOTE | 2018-01-13 12:29 | Progress Note-Pre Operative ---
Pre-Operative Progress Note H&P Reviewed The H&P was reviewed, patient examined and no changes noted. Date Seen by Provider: Jan 13, 2018 Time Seen by Provider: 12:25 Date H&P Reviewed: Jan 13, 2018 Time H&P Reviewed: 12:20 Pre-Operative Diagnosis: missed (10 weeks with 8 week fetus); type II diabetes with poor co GEO DACOSTA DO Jan 13, 2018 12:29
[2018-01-13] MEDS ORDERED: KETOROLAC 30 MG/ML VIAL IVP ONE (13:15)
--- NOTE | 2018-01-13 13:20 | Operative Report ---
Operative Report Date of Procedure/Surgery Jan 13, 2018 Surgeon (s) GEO DACOSTA DO Nitrator Operator (s): NA Post-Operative Diagnosis missed at 10 weeks (8 week fetus) poorly controlled diabetes Procedure Performed Suction dilation and curettage Description of Procedure Anesthesia Type: General Estimated blood loss (mL): 200 Specimen(s) collected/removed products of conception Description of the Procedure this is a 37 year old AMA approximately 10 week . She is a preexisting poorly controlled diabetic. States that she was on Victoza, Glyburide and metformin prior to the visit with me. In addition states she was supposed to be on Lantus but "had stopped it while she was trying to get ". Her A1C at her Obstetrical intake was 9.1%. US on 01/07/18 showed 8 week fetus with no hearttones. Cervix was not dilated and no evidence of bleeding. However, she states last night and this morning she has had cramping. Her blood sugar on arrival today (after 12 hours of fasting, last food gummy bears and ice cream at 0130) was 326. She was given 10 units IV NovoLog by anesthesia and blood sugar now 319. With informed consent, the patient was taken to the operating room where general anesthesia was found to be adequate. She was prepped and draped in the usual sterile fahin in the dorsolithotomy position. The bladder was drained of clear yellow urine. A speculum was placed in the vagina and the cervix was grasped with the sharp toothed tenaculum. the cervix was not dilated. I sounded the Uterus to 10 cm. I then gently dilated the cervix with Rothman dilators and then inserted a curved suction removing a small amount of products of conception. I then followed this with a sharp curette until a gritty texture/uterine cry was "heard". I then followed with an additional suction curette and then, as hemostasis was achieved, I removed the instruments from the cervix and the vagina. The patient was awakened and taken to the recovery room in a stable condition. Sponge, instrument and lap counts correct times two. She will be admitted to the floor following recovery for blood sugar management. Findings of the Procedure moderate amounts of products of conception no bleeding or cervical dilation prior to the procedure. Allergies and Home Medications Allergies Coded Allergies: latex (Unverified Allergy, Mild, RASH, ITCHING, 01/25/13) Uncoded Allergies: TAPE (Allergy, Mild, 05/23/09) Home Medications Glyburide 5 Mg Tablet, 5 MG PO DAILY, (Reported) script called in 01/11/18 but not picked up by pt yet Ibuprofen 800 Mg Tablet, 800 MG PO TID, (Reported) script called in 01/11/18 but not picked up by pt yet Insulin Glargine,Hum.rec.anlog 100 Unit/1 Ml Insuln.pen, 40 UNIT SQ HS, ( Reported) Levothyroxine Sodium 75 Mcg Tablet, 75 MCG PO DAILY, (Reported) script called in 01/11/18 but not picked up by pt yet Metformin HCl 500 Mg Tab.er.24h, 1,000 MG PO BID, (Reported) take 2 (500mg) tab script called in 01/11/18 but not picked up by pt yet Patient Home Medication List Home Medication List Reviewed: Yes GEO DACOSTA DO Jan 13, 2018 13:20
[2018-01-13] MEDS ORDERED: MEPERIDINE (DEMEROL) INJ 50 MG/ML IVP ONE (13:30)
[2018-01-13] MEDS ORDERED: HYDROmorphone 2 MG/ML VIAL (DILAUDID) IV ONE (13:30)
[2018-01-13] MEDS ORDERED: fentaNYL INJECTION 100 MCG/2 ML AMP IVP ONE (13:30)
[2018-01-13] MEDS ORDERED: inSUlin ASPART (NovoLOG) 1 UNIT/0.01 ML (CHARGE PER UNIT) SC ONE (13:30)
[2018-01-13] MEDS ORDERED: ONDANSETRON 4 MG/2 ML (SDV) Z0FRAN IVP PRN (13:30)
[2018-01-13] MEDS ORDERED: KETOROLAC 30 MG/ML VIAL ONE (13:32)
[2018-01-13] MEDS ORDERED: PROMETHAZINE INJ 25 MG/ML (PHENERGAN) AMP ONE (14:06)
[2018-01-13] MEDS ORDERED: SCOPOLAMINE 1.5 MG (TRANSDERM-SCOP) PATCH ONE (14:11)
[2018-01-13] MEDS ORDERED: PROMETHAZINE INJ 25 MG/ML (PHENERGAN) AMP IVP ONE (14:15)
[2018-01-13] MEDS ORDERED: SCOPOLAMINE 1.5 MG (TRANSDERM-SCOP) PATCH TD ONE (14:15)
[2018-01-13 14:50] VITALS: BP 106/63
[2018-01-13] MEDS ORDERED: inSUlin ASPART (NovoLOG) 1 UNIT/0.01 ML (CHARGE PER UNIT) SC SCH (16:00)
[2018-01-13] MEDS ORDERED: FLU QUADRIvalent (5+ YOA) 2018-2019 (AFLURIA) 0.5 ML IM ONE (16:30)
[2018-01-13 16:45] VITALS: BP 110/61
[2018-01-13] MEDS ORDERED: metFORMIN 500 MG (GLUCOPHAGE) TAB PO SCH (17:00)
[2018-01-13] MEDS ORDERED: fentaNYL INJECTION 100 MCG/2 ML AMP IVP PRN (17:00)
[2018-01-13] MEDS: metFORMIN 500 MG (GLUCOPHAGE) TAB PO SCH (18:05)
[2018-01-13] MEDS: ACETAMINOPHEN 500 MG TAB (TYLENOL) PO PRN (18:05)
[2018-01-13] MEDS: METHYLERGONOVINE 0.2 MG (MEHTERGINE) TAB PO SCH ×2 (18:05→22:24)
[2018-01-13] MEDS: KETOROLAC 30 MG/ML VIAL IVP PRN (20:44)
[2018-01-13] MEDS ORDERED: inSUlin DETERMIR 1 UNIT/0.01 ML (LEVEMIR) CHARGE PER UNIT SQ SCH ×2 (21:00)
[2018-01-13 22:30] VITALS: BP 115/77
[2018-01-14] MEDS: KETOROLAC 30 MG/ML VIAL IVP PRN ×2 (02:57→09:26)
[2018-01-14] MEDS: ACETAMINOPHEN 500 MG TAB (TYLENOL) PO PRN (02:57)
[2018-01-14 03:00] VITALS: BP 101/57
[2018-01-14 06:28] VITALS: BP 117/77
[2018-01-14] MEDS ORDERED: glyBURIDE 5 MG (MICRONASE) TAB PO SCH (06:30)
[2018-01-14] MEDS ORDERED: LEVOTHYROXINE 75 MCG (LEVOTHROID) TABLET PO SCH (06:30)
--- NOTE | 2018-01-14 07:06 | Anesthesia-General Post-Op ---
General Patient Condition Mental Status/LOC: Same as Preop Cardiovascular: Satisfactory Nausea/Vomiting: Absent Respiratory: Satisfactory Pain: Controlled Complications: Absent Post Op Complications Complications None Follow Up Care/Instructions Patient Instructions None needed. Anesthesia/Patient Condition Patient Condition Patient is doing well, no complaints, stable vital signs, no apparent adverse anesthesia problems. No complications reported per nursing. ANATOLY SWANSON CRNA Jan 14, 2018 07:06
[2018-01-14] MEDS: metFORMIN 500 MG (GLUCOPHAGE) TAB PO SCH (07:43)
[2018-01-14 09:25] VITALS: BP 116/72
[2018-01-14] MEDS: METHYLERGONOVINE 0.2 MG (MEHTERGINE) TAB PO SCH (09:25)
--- NOTE | 2018-01-14 09:27 | Physician Progress Note ---
Progress Note Assessment/Plan Date Seen by Provider: Jan 14, 2018 Time Seen by Provider: 09:15 Events since last exam Admitted post operatively due to history of bleeding after her last d&c and also blood sugar management. Restarted most of the meds she was on antepartum. However, she reportedly is on victoza and has not picked up her prescription. Also was supposed to be on Lantus but "stopped it to try toget ". Have restarted an old dose of lantus, 2000 daily of metformin and 5 mg of glyburide. May benefit from victoza however. Also sliding scale to get sugars under control until pm dosing. Dr. Bernstein to see her today. she is interested in retirement control. Laboratory Tests Test 01/13/18 10:59 01/13/18 11:11 01/13/18 11:15 01/13/18 12:16 Range/Units Urine Color YELLOW Urine Clarity CLEAR Urine pH 5 5-9 Urine Specific [place] 1.020 1.016-1.022 Urine Protein 1+ H NEGATIVE Urine Glucose (UA) 4+ H NEGATIVE Urine Ketones 3+ H NEGATIVE Urine Nitrite NEGATIVE NEGATIVE Urine Bilirubin NEGATIVE NEGATIVE Urine Urobilinogen NORMAL NORMAL MG/DL Urine Leukocyte Esterase 1+ H NEGATIVE Urine RBC (Auto) NEGATIVE NEGATIVE Urine RBC NONE /HPF Urine WBC 2-5 /HPF Urine Squamous Epithelial Cells 2-5 /HPF Urine Crystals NONE /LPF Urine Bacteria TRACE /HPF Urine Casts NONE /LPF Urine Mucus NEGATIVE /LPF Urine Culture Indicated NO Glucometer 329 H 316 H 70-110 MG/DL White Blood Count 10.0 4.3-11.0 10^3/uL Red Blood Count 5.26 4.35-5.85 10^6/uL Hemoglobin 14.9 11.5-16.0 G/DL Hematocrit 41 35-52 % Mean Corpuscular Volume 79 L 80-99 FL Mean Corpuscular Hemoglobin 28 25-34 PG Mean Corpuscular Hemoglobin Concent 36 32-36 G/DL Red Cell Distribution Width 14.5 10.0-14.5 % Platelet Count 347 130-400 10^3/uL Mean Platelet Volume 9.8 7.4-10.4 FL Neutrophils (%) (Auto) 62 42-75 % Lymphocytes (%) (Auto) 27 12-44 % Monocytes (%) (Auto) 5 0-12 % Eosinophils (%) (Auto) 6 0-10 % Basophils (%) (Auto) 0 0-10 % Neutrophils # (Auto) 6.2 1.8-7.8 X 10^3 Lymphocytes # (Auto) 2.7 1.0-4.0 X 10^3 Monocytes # (Auto) 0.5 0.0-1.0 X 10^3 Eosinophils # (Auto) 0.6 H 0.0-0.3 10^3/uL Basophils # (Auto) 0.0 0.0-0.1 10^3/uL Test 01/13/18 13:26 01/13/18 14:58 01/13/18 17:52 01/13/18 22:07 Range/Units Glucometer 283 H 265 H 180 H 153 H 70-110 MG/DL Test 01/14/18 06:21 Range/Units Glucometer 169 H 70-110 MG/DL POD #1 s/p D&C for Missed AB poorly controlled diabetes Will be discharged home today. Assessment/Plan see above Vitals Last set of Vitals Signs Vital Signs Date Time Temp Pulse Resp B/P (MAP) Pulse Ox O2 Delivery O2 Flow Rate FiO2 01/14/18 06:28 97.8 66 20 117/77 (90) 97 Room Air 01/13/18 14:50 2.00 I&O I&O Intake and Output 01/14/18 00:00 Intake Total 660 ml Output Total 700 ml Balance -40 ml Intake Oral 500 ml IV Total 160 ml Output Urine Total 550 ml Estimated Blood Loss 150 ml Labs Laboratory Tests 01/13/18 10:59: Urine Color YELLOW, Urine Clarity CLEAR, Urine pH 5, Urine Specific [place] 1.020, Urine Protein 1+H, Urine Glucose (UA) 4+H, Urine Ketones 3+H, Urine Nitrite NEGATIVE, Urine Bilirubin NEGATIVE, Urine Urobilinogen NORMAL, Urine Leukocyte Esterase 1+H, Urine RBC (Auto) NEGATIVE, Urine RBC NONE, Urine WBC 2-5 , Urine Squamous Epithelial Cells 2-5, Urine Crystals NONE, Urine Bacteria TRACE , Urine Casts NONE, Urine Mucus NEGATIVE, Urine Culture Indicated NO 01/13/18 11:11: Glucometer 329H 01/13/18 11:15: White Blood Count 10.0, Red Blood Count 5.26, Hemoglobin 14.9, Hematocrit 41, Mean Corpuscular Volume 79L, Mean Corpuscular Hemoglobin 28, Mean Corpuscular Hemoglobin Concent 36, Red Cell Distribution Width 14.5, Platelet Count 347, Mean Platelet Volume 9.8, Neutrophils (%) (Auto) 62, Lymphocytes (%) (Auto) 27, Monocytes (%) (Auto) 5, Eosinophils (%) (Auto) 6, Basophils (%) (Auto) 0, Neutrophils # (Auto) 6.2, Lymphocytes # (Auto) 2.7, Monocytes # (Auto) 0.5, Eosinophils # (Auto) 0.6H, Basophils # (Auto) 0.0 01/13/18 12:16: Glucometer 316H 01/13/18 13:26: Glucometer 283H 01/13/18 14:58: Glucometer 265H 01/13/18 17:52: Glucometer 180H 01/13/18 22:07: Glucometer 153H 01/14/18 06:21: Glucometer 169H Clinical Quality Measures DVT/VTE Risk/Contraindication: Risk Factor Score Per Nursin RFS Level Per Nursing on Admit: 4+=Very High GEO DACOSTA DO Jan 14, 2018 09:27
[2018-01-14] MEDS ORDERED: INSU100I34 SQ (09:33)
--- NOTE | 2018-01-14 09:34 | Discharge Inst-Women's Service ---
Discharge Inst-Women's Serv Depart Medication/Instructions New, Converted or Re-Newed RX: Other Final Diagnosis missed ab poorly controlled diabetes hyperglycemia Consults/Follow Up Additional Follow Up: Yes (01/18 at 1:20 with Tatiana Santos; [address] Velazquez) Activity Activity: Activity as Tolerated Driving Instructions: No Driving for 24 Hours NO SMOKING: NO SMOKING Nothing Inside Vagina: No Douching, No [place], No Tampons Diet Discharge Diet: No Restrictions Symptoms to Report to : Bleeding Excessive, Pain Increased, Fever Over 101 Degrees F, Vaginal Bleeding Increase (> 1 pad per hour soaked), Vaginal Discharge FoGEO Ambrosio DO Jan 14, 2018 09:34
--- NOTE | 2018-01-14 09:37 | Consultation ([facility]) ---
HPI History of Present Illness: Date seen by provider: Jan 14, 2018 Time Seen by Provider: 09:37 Attending Physician Carmen Velazquez DO PCP Pedro Man DO Consult Date of Admission Home Medications Home Medications Reviewed patient Home Medication Reconciliation performed by pharmacy medication reconciliations collection systems technician and/or nursing. Patients Allergies have been reviewed. Allergies Coded Allergies: latex (Unverified Allergy, Mild, RASH, ITCHING, 01/25/13) Uncoded Allergies: TAPE (Allergy, Mild, 05/23/09) [id number] Hx Patient Social History Alcohol Use: Denies Use Recreational Drug Use: Yes (thc and alcohol) Smoking Status: Current Everyday Smoker Type Used: Cigarettes 2nd Hand Smoke Exposure: Yes Recent Foreign Travel: No Contact w/other who traveled: No Recent Hopitalizations: No Recent Infectious Disease Expo: No Immunizations Up To Date Tetanus Booster (TDap): Unknown Past Medical History Past Medical History 1. Diabetes Mellitus- poorly controlled 2. Tobaccoism 3. History of labial abscess with I&D 03/10 with staph aures (sensitive to all antibiotics) 4. Obesity 5. Hypothyroidism 6. History of depression and anxiety with previous evaluations at [facility] Past Surgical History 1. x4 2. Tonsillectomy with adenoidectomy 3. Cholecystectomy Family Medical History Significant Family History: COPD, Diabetes, Psychiatric Problems, Stroke Family History: Alcoholism Alzheimer's disease Arthritis 19 MOTHER Asthma 19 MOTHER Cataracts Completed stroke Diabetes mellitus 19 FATHER 19 MOTHER Drug abuse Glaucoma Osteoporosis Psychosocial problem Respiratory disorder Severe allergy Thyroid disease 19 MOTHER Visual disorder 19 MOTHER No Family History of: AIDS Abdominal aortic aneurysm Belva's disease Aphasia Cancer of mouth Cardiovascular disease Colon cancer Congenital disease Congenital heart disease Coronary thrombosis Cystic fibrosis Deafness or hearing loss Dementia Dysphasia Fibrocystic disease of breast Gastroenteritis Headache disorder Hypercholesterolemia Hypertension Infertility Kidney disease Myocardial infarction Neoplasm Not obtainable due to adoption Parkinson's disease Prostate cancer Seizure disorder Tuberculosis Physical Exam-([facility]) Physical Exam Vital Signs VS - Last 72 Hours, by Label 01/13/18 01/13/18 01/13/18 01/13/18 10:55 14:50 16:45 22:30 Temp 97.0 97.0 97.7 97.1 Pulse 96 96 81 79 Resp 18 18 16 18 B/P (MAP) 121/75 (90) 106/63 (77) 110/61 (77) 115/77 (90) Pulse Ox 94 100 98 98 O2 Delivery Room Air Nasal Cannula Room Air Room Air O2 Flow Rate 2.00 01/14/18 01/14/18 01/14/18 03:00 06:28 09:25 Temp 97.8 97.8 97.2 Pulse 97 66 77 Resp 16 20 18 B/P (MAP) 101/57 (72) 117/77 (90) 116/72 (87) Pulse Ox 99 97 99 O2 Delivery Room Air Room Air Room Air Capillary Refill : Clinical Quality Measures DVT/VTE Risk/Contraindication: Risk Factor Score Per Nursin RFS Level Per Nursing on Admit: 4+=Very High PEDRO MAN DO Jan 14, 2018 09:37
[2018-01-14 10:45] VITALS: BP 116/72
== END 2018-01-14 10:45 | disposition home or self-care (01) ==
LOC: SDC 10:50 → WS 14:20 → SDC 01-14 10:45
PROVIDERS: ATTEND Obstetrics & Gynecology
DX: O02.1 Missed abortion (principal); E11.65 Type 2 diabetes mellitus with hyperglycemia; Z79.84 Long term (current) use of oral hypoglycemic drugs; Z11.2 Encounter for screening for other bacterial diseases; Z22.330 Carrier of Group B streptococcus; F17.210 Nicotine dependence, cigarettes, uncomplicated; E66.01 Morbid (severe) obesity due to excess calories; Z79.899 Other long term (current) drug therapy; Z68.42 Body mass index [BMI] 45.0-49.9, adult; E03.9 Hypothyroidism, unspecified; F41.9 Anxiety disorder, unspecified; F32.9 Major depressive disorder, single episode, unspecified
CPT/HCPCS: 36415; 81000; 82962; 85025; 86850; 86900; 86901; 87081; 94664

== ENCOUNTER → 2018-09-18 | Outpatient (CLI) | payer MEDICAID ==
[~2018-09-18] MED LIST changes: +INSU100I34 SQ
== END ==
LOC: LAB 14:46
PROVIDERS: ATTEND Obstetrics & Gynecology
DX: Z36.89 Encounter for other specified antenatal screening (principal)
CPT/HCPCS: 36415; 84702

== ENCOUNTER → 2019-05-17 | Outpatient (CLI) | payer MEDICAID ==
[~2019-05-17] MED LIST changes: +GLIM2TAB2 PO; +METF500T19 PO; -TRAM50TA2; -TRAM50TA2 PO; +TRM50T; +TRM50T PO
--- NOTE | 2019-05-17 14:57 | Diagnostic Imaging Report ---
INDICATION: Bleeding in early . TECHNIQUE: Multiple real-time grayscale images were obtained over the gravid uterus. COMPARISON: None FINDINGS: Examination is significantly limited secondary to early gestational age and maternal patient body habitus. A single intrauterine gestation is noted in a breech presentation. Estimated gestational age is 17 weeks and 6 days. Evaluation of anatomy is severely limited secondary to early gestational age. cardiac motion is documented at 146 bpm. The placenta is fundally located and on the right without evidence of placenta previa or placental abruption. Maternal ovaries were unable to be visualized secondary to the gravid uterus in adjacent bowel. No significant free fluid within the maternal pelvis. IMPRESSION: Significantly limited examination demonstrates a single live intrauterine gestation with an estimated gestational age of 17 weeks and 6 days. Therefore, there is an estimated due date based upon this examination of October 19, 2019. Findings are consistent with clinical dating. No acute abnormality. Recommend a full anatomic survey between 18-20 weeks gestational age. Biometrical measurements are as follows: Biparietal 3.76 cm, age 17 weeks 4 days. Head circumference 14.42 cm, age 17 weeks 5 days. Abdominal circumference 13.12 cm, age 18 weeks 5 days. Femur length 2.32 cm, age 17 weeks 0 days. Sonographic estimate age: 17 weeks 6 days. Sonographic estimated date of delivery: 10/19/2019. Estimated Weight: 211 gm (+/- 31 gm). LMP percentile: 97%. heart rate: 146 beats per minute. number: 1 of 1. Dictated by: Dictated on workstation # [id number]
== END ==
LOC: RAD 11:45
PROVIDERS: ATTEND Obstetrics & Gynecology
DX: O20.9 Hemorrhage in early pregnancy, unspecified (principal); Z3A.17 17 weeks gestation of pregnancy
CPT/HCPCS: 76805

== ENCOUNTER 2019-09-30 07:30 | Inpatient (IN) | payer MEDICAID ==
[~2019-09-30] VITALS: Ht 162.6 cm; Wt 127.2 kg
[~2019-09-30 07:30] MED LIST changes: -GLIM2TAB2 PO; +GLIM2TAB4 PO; +INSU100V16 SQ; +METF-397 PO; +METF-865 PO; -METF500T19 PO; +NPH,100V SQ
[2019-10-07] VITALS (10 sets, daily range): BP systolic 102–132; BP diastolic 49–85
--- NOTE | 2019-10-07 11:08 | NUR ---
SANDRINE GUEVARA presented to unit via from ED, accompanied by daughter, for REPEAT SECTION. SANDRINE GUEVARA weighed, gowned, voided, and to bed. EFHM and TOCO applied, VS taken. SANDRINE GUEVARA oriented to bed controls, call light, TV, heat, and A/C controls.
[2019-10-07] MEDS ORDERED: CITRIC ACID/SOB CIT (BICITRA) 30 ML UDC PO ONE (11:15)
[2019-10-07] MEDS ORDERED: ceFAZolin INJECTION 1,000 MG in WATER (STERILE) FOR INJECTION 10 ML IV ONE (11:15)
[2019-10-07] MEDS ORDERED: FAMOTIDINE 20MG/2ML IV (PEPCID) IV ONE (11:15)
[2019-10-07] MEDS ORDERED: METOCLOPRAMIDE INJ 10 MG/2 ML (REGLAN) IV ONE (11:15)
[2019-10-07] MEDS ORDERED: CATHETER FLUSH 10 ML SYR IV PRN (11:30)
[2019-10-07] MEDS: LACTATED RINGERS 1,000 ML IV PRN ×2 (12:03→12:46)
[2019-10-07 12:14] LABS: BASOPHILS % (AUTO) 0 % (0-10); EOSINOPHILS # (AUTO) 0.3 10^3/uL (0.0-0.3); EOSINOPHILS % (AUTO) 2 % (0-10); HEMATOCRIT 32 % (35-52); LYMPHOCYTES % (AUTO) 22 % (12-44); MEAN CORPUSCULAR HEMOGLOBIN 26 PG (25-34); MEAN CORPUSCULAR HGB CONC 35 G/DL (32-36); MEAN CORPUSCULAR VOLUME 76 FL (80-99); MONOCYTES # (AUTO) 0.8 X 10^3 (0.0-1.0); MONOCYTES % (AUTO) 6 % (0-12); NEUTROPHILS # (AUTO) 9.6 X 10^3 (1.8-7.8); NEUTROPHILS % (AUTO) 70 % (42-75); PLATELET COUNT 455 10^3/uL (130-400); RED CELL DISTRIBUTION WIDTH 15.9 % (10.0-14.5); WHITE BLOOD COUNT 13.6 10^3/uL (4.3-11.0)
--- NOTE | 2019-10-07 12:25 | NUR ---
MRSA SWAB OBTAINED.
--- OUTSIDE RECORDS SUMMARY | 2019-10-07 12:25 | XMS REPORT ---
Author Author [employer] tin flopper [facility] Address [address] [address] Care Team Providers Care Cryptozoologist Name Role Phone JESSIKA, TATIANA Unavailable Unavailable JESSIKA, TATIANA Unavailable [facility] Unavailable CHRISTINA BRAUN Unavailable Unavailable JESSIKA, TATIANA GUEST RELATIONS REPRESENTATIVE Unavailable [facility], [facility] Unavailable [phone] JESSIKA, TATIANA Unavailable JESSIKA, TATIANA Unavailable [facility] Unavailable [phone] JESSIKA, TATIANA Unavailable JESSIKA, TATIANA Unavailable KAVITHA TRINIDAD Unavailable JESSIKA, TATIANA Unavailable JESSIKA, TATIANA Unavailable JESSIKA, TATIANA Unavailable JESSIKA, TATIANA Unavailable JESSIKA, TATIANA Unavailable JESSIKA, TATIANA Unavailable JESSIKA, TATIANA Unavailable JESSIKA, TATIANA Unavailable JESSIKA, TATIANA Unavailable JESSIKA, TATIANA Unavailable JESSIKA, TATIANA Unavailable JESSIKA, TATIANA Unavailable GEO DACOSTA DO Unavailable Unavailable MARY NUÑEZ MD Unavailable Unavailable MARY NUÑEZ MD Unavailable Unavailable TIFFANY KNAPP Unavailable Unavailable KIMBERLI FELTON APRN Unavailable Unavailable PEDRO MAN Unavailable JESSIKA, TATIANA Unavailable LUIS DIAMOND Unavailable JESSIKA, TATIANA Unavailable JESSIKA, TATIANA Unavailable Migration, Doctor Unavailable Unavailable Migration, Doctor Unavailable Unavailable Migration, Doctor Unavailable Unavailable JESSIKA, TATIANA Unavailable MARVIN Humphrey Unavailable JESSIKA, TATIANA Unavailable JESSIKA, TATIANA Unavailable JESSIKA, TATIANA Unavailable JESSIKA, TATIANA Unavailable JESSIKA, TATIANA Unavailable JESSIKA, TATIANA Unavailable JESSIKA, TATIANA Unavailable JESSIKA, TATIANA Unavailable JESSIKA, TATIANA Unavailable GEO DACOSTA DO Unavailable Unavailable JESSIKA, TATIANA Unavailable JESSIKA, TATIANA Unavailable JESSIKA, TATIANA Unavailable JESSIKA, TATIANA Unavailable JESSIKA, TATIANA Unavailable LUIS Hidalgo Unavailable JESSIKA, TATIANA Unavailable JESSIKA, TATIANA Unavailable JESSIKA, TATIANA Unavailable JESSIKA, TATIANA Unavailable RAVEN HASSAN Unavailable GEO DACOSTA DO Unavailable Unavailable Unavailable Unavailable Unavailable Unavailable Unavailable Unavailable Unavailable Unavailable Allergies Normalized Allergy Reported Date of Reaction(s) Care Provider Facility Allergy Type classification allergen Allergy Onset Drug Allergy insulin insulin 11-09-2017 - hager, hager [facility] (2 sources.) glargine glargine [id number] [facility] Translations: [facility] [ Lantus, [place] ([address]) Insulin Glargine 100 UNT/ML Injectable Solution [Lantus], Lantus] Drug Allergy liraglutide liraglutide 10-06-2017 - Unknown, YONY Michel [facility] (3 sources.) Translations: Unknown [id number] [facility] nter [ Victoza, [facility] Victoza, 3 ML [place] ([address]) liraglutide 6 MG/ML Pen Injector [Victoza], Victoza] Medications Current Medications Medication Ingredient Drug Dose Dates Status Sig Sig Care Class(es) (Normalized) (Original) Provid er 12 hr buPROPion / Opioid Active no Contrave no buPROPion naltrexone Antagonist, information 8-90 MG name hydrochlori Translation Aminoketone Orally in PM de 90 mg / s: [ X 1 week, 1 naltrexone Contrave tab bid X 1 hydrochlori 8-90 MG, week, 2 tabs de 8 mg Contrave in AM and 1 extended 8-90 MG] in PM X 1 release week, 2 tabs oral tablet bid final (3 dose 1 sources.) tablet Active cephalexin Cephalexin Cephalospor 500 mg 12-29-19 Active take 1 Keflex 500 no 500 mg oral Translation in 14 capsule by mg take 1 name capsule (1 s: [ Keflex Antibacteri mouth every capsule (50 0 source.) 500 mg] al six hours mg) by oral route every 6 hours for 7 days Dec, Active ciclopirox ciclopirox no 80 01-02-20 Active no Penla c 8 % no 80 mg/ml Translation information mg/mL 18 - information Compressor 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 Engineer ally name topical s: [ Penlac 03-02-20 Once a day, solution (1 8 %] 18 remove layer source.) once a week 1 application to affected area Dec, Feb, 30 days Active desvenlafax Desvenlafax Serotonin 50 mg 08-27-19 Active take 1 Pristiq 50 no ine 50 mg ine and 12 tablet by mg 1 tablet name oral tablet Norepinephr mouth once by Oral (1 source.) ine daily route 1 time Reuptake per day Aug, 2011 Active no Levemir no 10 05-22-19 Active inject 10 Levemir no information FlexTouch information [IU] 15 [IU] by FlexTouch name (1 source.) 100 unit/mL subcutaneous 100 unit/mL (3 mL) injection (3 mL) once inject 10 Units by Subcutaneous route as per insulin sliding scale protocol 1 time per day Apr, Active no [place] 3 no 11-12-19 Active no [place] 3 1000 no information 1000 MG information 18 information MG Orally name (1 source.) Translation Once a day 3 s: [ [place] capsules 24h 3 1000 MG] Oct, Active no [place] 3 no 11-12-19 Active take 3 [place] 3 1000 no information 1000 MG information 18 capsules by MG Orally name (1 source.) Translation mouth once Once a day 3 s: [ [place] daily capsules 24h 3 1000 MG] Oct, Active no Ozempic 1 no 1 mg 07-20-19 Active inject 1 mg Ozemp ic 1 no information MG/DOSE information 19 by MG/DOSE na me (1 source.) subcutaneous Subcutaneous injection once weekly every week 1 mg Jun, 30 days Active terbinafine terbinafine Allylamine 250 mg 07-20-19 Active take 1 Terbinafine no 250 mg oral Translation Antifungal 19 tablet by HCl 250 M G name tablet (1 s: [ mouth once Orally Once source.) Terbinafine daily a day 1 HCl 250 MG] tablet 24h Jun, 90 days Active no TRUEtest no Active no TRUEtest no information Test - information information Test - In name (1 source.) Translation Vitro 3 s: [ times a day TRUEtest test blood Test -] sugar 8h 90 days Active Completed/Discontinued Medications Medication Ingredient Drug Dose Dates Status Sig Sig Care Class(es) (Normalized) (Original) Provid er no Acetaminoph no 03-06-20 Complete no Acetaminophe Timoth information en/Hydrocod information 14 - d information n/ Hydrocodon y D (1 source.) one Bitart 05-15-19 e Bitart Stebbi (Anexsia 15 (Anexsia ns (no 5-325 Mg 5-325 Mg phone) Tablet) 1 Tablet) 1 Each Each Tablet, Tablet, 1-2 1-2 Each Each Oral Oral Q6hr Prn 03/06/14 Discontinued no Aspirin/Octavio no 01-13-20 Complete no Aspirin/Acet (no information taminophen/ information 18 d information am inophen/Ca phone) (1 source.) Caffeine ffeine (Excedrin (Excedrin Caplet) 1 Caplet) 1 Tab Tablet, Tab Tablet, 2 Tab Oral 2 Tab Oral Every 6 Hours as needed for Pain Discontinued no bimatoprost Prostagland Suspende no Lumigan n o information in Analog d information Not-Taking name (3 sources.) Active no Lumigan no name inform Active ation miSOPROStol miSOPROStol Prostagland 0.2 mg 01-15-20 Complete no Misoprostol (no 0.2 mg oral in E1 18 d information 200 Mcg ph one) tablet (1 Analog Tablet, 200 source.) Mcg Oral As Directed Discontinued Problems Active Problems Problem Normalized Date Last Normalized Normalized Provider Fa randa Classification Problem(s) Recorded Problem Problem Sta tus Duration Residual 17 weeks Episodic Active ARIK NOBLES Via codes; gestation of [facility] - (2 sources.) [place] ([address]) Residual 26 weeks Episodic Active TATIANA ROSEN Communit y codes; gestation of [address] [place] [address] unclassified of [facility] (4 sources.) Translations: [place] (31535) [ - 26 weeks gestation of Z3A.26] Unclassified 9 weeks no information Active GEO DACOSTA , N ot Available (5 sources.) gestation of (60190) Translations: [ PERSONAL HISTORY OF COMP OF PREG, CHLDBR, ACQUIRED ABSENCE OF OTHER ORGANS] Acute Acute Episodic Active GEO DACOSTA , Not Avail able posthemorrhagi posthemorrhagi DO (85199) c anemia (1 c anemia source.) Other Anemia of Chronic Active GEO DACOSTA , Not Avai lable complications mother, DO (28576) of ; delivered, puerperium with mention affecting of management of complication mother (1 source.) Other Anemia of Chronic Active GEO DACOSTA , Not Avai lable complications mother, DO (34392) of ; puerperium condition or affecting complication management of mother (1 source.) Deficiency and Anemia, Episodic Active GEO DACOSTA , Not Available other anemia unspecified DO (41689) (1 source.) Diabetes Diabetes no information Active PEDRO MAN Via [facility] isti mellitus mellitus [address] [place] [address] without without [place] complication complication (20227) (2 sources.) NEGATED Gestational Episodic Active no name no informa tion no diabetes information (8 mellitus in sources.) , insulin controlled Translations: [ ABN GLUCOSE GINETTE-DELIV, ABN GLUCOSE-ANTEPA RTUM] Residual Illness, Episodic Active TATIANA ROSEN Communit y codes; unspecified [address] [facility] unclassified Translations: of [place] (11 sources.) [ - [place] ([address]) Influenza-like illness R69] Other MCC Episodic Active KIMBERLI FELTON Not Availa ble aftercare (7 (current) use (51495) sources.) of aspirin Other emt intermediate Episodic Active KIMBERLI FELTON Not Availa ble aftercare (16 (current) use (64715) sources.) of insulin Other Maternal care Episodic Active GEO DACOSTA , Not Available complications for DO (52266) of ; intrauterine puerperium , not affecting applicable or management of unspecified mother (3 sources.) Bacterial Methicillin Episodic Active MARY SAVANNAH Not Av ailable infection; MD ami (95110) unspecified Staphylococcus site (6 aureus sources.) infection as the cause of diseases classified elsewhere Other Missed Episodic Active GEO DACOSTA , Not Avail able complications DO (11113) of (8 sources.) Other Missed Episodic Active PEDRO MAN Via [facility] complications miscarriage [id number] [place] [address] (1 source.) (40[address]) Other Other current Episodic Active GEO DACOSTA , Not Available complications conditions DO (63462) of ; classifiable puerperium elsewhere of affecting mother, management of delivered, mother (1 with or source.) without mention of antepartum condition Other Other Episodic Active GEO DACOSTA , Not Avail able complications immediate DO (78436) of ; puerperium hemorrhage, affecting management of condition or mother (1 complication source.) NEGATED Other long Episodic Active no name Not Availab le no term (current) (29830) information (3 drug therapy sources.) Other Other Episodic Active no name no informatio n complications specified of diseases and (2 sources.) conditions complicating , childbirth and the puerperium Normal Outcome of Episodic Active GEO DACOSTA , Not Mayra ilable delivery, DO (22558) and/or single delivery (1 liveborn source.) Residual Patient's Episodic Active MARY SAVANNAH Not Avai lable codes; noncompliance MD (76600) unclassified with other (6 sources.) medical treatment and regimen Translations: [ BODY MASS INDEX (BMI) 40.0-44.9, ADULT] NEGATED Previous Episodic Active GEO DACOSTA , Not Avail able no DO (08842) information (2 delivery, sources.) delivered, with or without mention of antepartum condition Translations: [ PREV DELIVERY, ANTEPARTUM COND ] Other Smoking Episodic Active no name no informatio n complications (tobacco) of complicating (2 sources.) , first trimester Hemorrhage Threatened Episodic Active GEO DACOSTA , [facility] Vi a during DO Chaya ; Translations: Hospital - abruptio [ HEMORRHAGE [place] placenta; IN EARLY (60598) placenta , previa (4 UNSPECIFI] sources.) Mycoses (20 Tinea unguium Episodic Active TIFFANY Not Av ailable sources.) Translations: PARVIN CARRASCO (22191) [ - Onychomycosis B35.1, CANDIDIASIS OF VULVA AND VAGINA, - Yeast vaginitis B37.3, - Onychomycosis B35.1, - Vaginal yeast infection B37.3] Residual Tobacco user Episodic Active TATIANA JESSIKA Comm unity codes; Translations: [address] [facility] unclassified [ Tobacco use] of [facility] (11 sources.) [place] ([address]32) Diabetes or Unspecified Chronic Active no name no infor mation abnormal pre-existing glucose diabetes tolerance mellitus in complicating , ; first childbirth; or trimester the puerperium (2 sources.) Past or Other Problems Problem Normalized Date Last Normalized Normalized Provider Fa [facility] Classification Problem(s) Recorded Problem Problem Sta tus Duration Residual Acquired Episodic Completed TIFFANY Not Available codes; absence of PARVIN CARRASCO (59391) unclassified other organs (2 sources.) Other emt intermediate no information no information KIMBERLI FELTON Not Available aftercare (8 (current) use (41250) sources.) of oral hypoglycemic drugs NEGATED Major no information no information no name Not Available no depressive (29624) information (3 disorder, sources.) single episode, unspecified Residual Patient's Episodic Completed TIFFANY Not Availabl e codes; other PARVIN CARRASCO (00216) unclassified noncompliance (2 sources.) with medication regimen Abdominal pain Pelvic and no information no information GRETCHE N Not Available (3 sources.) perineal pain PARVIN CARRASCO (16622) Procedures Procedure Normalized Procedure Procedure Result Performer Facility Date 12-28-2013 Assay of thyroid no information no name Critical access hospital stimulating hormone [facility] (20840) 12-28-2013 C-reactive protein no information no name [facility] (79651) 11-09-2017 Collection venous no information no name [facility] blood venipuncture [facility] (45460) 12-28-2013 Collection venous no information no name [facility] blood venipuncture [facility] (60104) 01-01-2018 Debridement nail any no information no name [facility] method 1-5 [facility] (75781) 01-13-2018 Dilation and curettage no information GEO DACOSTA Via [facility] (34910) EXCISION OF BUTTOCK no information no name Not Availa ble (04764) SUBCU/FASCIA, OPEN A 07-19-2018 Hemoglobin no information no name [facility] glycosylated a1c [facility] (43856) 05-22-2014 Hemoglobin no information no name [facility] glycosylated a1c [facility] (44657) 12-28-2013 Hemoglobin no information no name [facility] glycosylated a1c [facility] (01048) 11-09-2017 LAB NOT BILLED BY no information no name [facility] (00154) LOW CERVICAL no information no name Not Mayra ilable (78235) 12-28-2013 Sedimentation rate rbc no information no name [facility] non-automated [facility] (93673) 08-04-2013 Urnls dip stick/tablet no information no name [facility] rgnt auto w/o [facility] (92618) Immunizations Normalized Immunization Date Notes Care Provider Facili ty Immunization NEGATED: Highlighted 01-14-2018 no information PEDRO MAN [address] [facility] has not [place] ([address]45) occurred! influenza, injectable,quadrival ent, preservative free, pediatric Results Test Name Value Interpretation Reference Range Date Time Fa cility (Normalized) (Normalized) (Medline Reference) a1c (in house) on null HbA1c (Bld) 10.4 % (no code) 0 - 5.7 % [facility] [Mass fraction] [facility] (94340) A1C (IN HOUSE) 11.9 (no code) [facility] (87221) A1C (IN HOUSE) 0941 (no code) [facility] (65999) A1C (IN HOUSE) 01/2020 (no code) [facility] (87086) laboratory on 2019-10-03 Coronavirus Ab Negative (no code) 10-03-2019 PENDING LOC ATION Qn (S) 04:42-0400 [facility] (76846) not yet categorized on 2018-07-19 Exp date 01/2020 (no code) [facility] (73103) Lot 10.4~11.9~0941 (no code) [facility] (29523) capillary blood glucose measurement by glucometer (mass/volume) on 2018-01-14 Glucose mass 169 mg/dL (H) 60 - 125 mg/dL Via [facility] (95531) venous blood hemoglobin measurement (mass/volume) on 2018-01-13 Hemoglobin mass 14.9 g/dL (no code) 12.1 - 17.2 g/dL Via [facility] ([facility]) [facility] (68630) urine urobilinogen measurement by automated test strip (mass/volume) on 2018-01-13 Urobilinogen NORMAL (no code) Via [facility] Test strip Qn [facility] ([facility] (14858) urine total bilirubin detection by test strip on 2018-01-13 Bilirubin Ql (U) Negative (no code) Via [facility] (33669) urine protein assay by test strip, semi-quantitativ e on 2018-01-13 Protein Test 1+ (*) Via [facility] strip () [facility] (89682) urine ph measurement by test strip on 2018-01-13 pH Test strip 5 [pH] (no code) 4.6 - 8 [pH] Via [facility] () [facility] (76744) urine nitrite detection by test strip on 2018-01-13 Nitrite Test Negative (no code) Via [facility] strip Ql (U) [facility] (59881) urine ketones detection by automated test strip on 2018-01-13 Ketones 3+ (*) Via [facility] Automated test Hospital strip Ql (U) [place] (70559) urine glucose detection by automated test strip on 2018-01-13 Glucose 4+ (*) Via [facility] Automated test Hospital strip Ql (U) [place] (37232) urine color determination on 2018-01-13 Color Nom (U) YELLOW (no code) Via [facility] (19300) urine clarity determination on 2018-01-13 Clarity Nom (U) CLEAR (no code) Via [facility] (28143) squamous epithelial cells detection in urine sediment by light microscopy on 2018-01-13 Epithelial no information (no code) Via [facility] cells.squamous Hospital LM Ql (Urine [place] sed) (73327) specific gravity of urine by test strip on 2018-01-13 Specific gravity 1.020 (no code) Via [facility] Relative Density [facility] (68024[facility] mucus detection in urine sediment by light microscopy on 2018-01-13 Mucus LM Ql Negative (no code) Via [facility] (Urine sed) [facility] (08375) leukocyte esterase on 2018-01-13 Leukocyte 1+ (*) Via [facility] esterase Test Hospital strip () [place] (61938) erythrocytes detection in urine sediment by light microscopy on 2018-01-13 RBC LM Ql (Urine Negative (no code) Via [facility] sed) [facility] (62472) crystals detection in urine sediment by light microscopy on 2018-01-13 Crystals LM Ql NONE (no code) Via [facility] (Urine sed) [facility] (82605) complete urinalysis with reflex to culture on 2018-01-13 Complete NO (no code) Via [facility] urinalysis with Hospital reflex to [place] culture (40722) casts detection in urine sediment by light microscopy on 2018-01-13 Casts LM Ql NONE (no code) Via [facility] (Urine sed) [facility] (98742) blood neutrophils automated count (number/volume) on 2018-01-13 Neutrophils Auto 6.2 10*3/uL (no code) 1.7 - 7 10*3/uL Via [facility] #/vol (Bld) [facility] (92444) blood monocytes/100 leukocytes on 2018-01-13 Monocytes/100 5 % (no code) 2 - 8 % Via [facility] WBC Auto (Bld) [facility] (99855) blood monocytes automated count (number/volume) on 2018-01-13 Monocytes Auto 0.5 10*3/uL (no code) 0.3 - 0.9 Via [facility] #/vol (Bld) 10*3/uL [facility] (01539) blood lymphocytes automated count (number/volume) on 2018-01-13 Lymphocytes Auto 2.7 10*3/uL (no code) 0.9 - 2.9 Via [facility] ti #/vol (Bld) 10*3/uL [facility] (43594) blood leukocytes automated count (number/volume) on 2018-01-13 WBC Auto #/vol 10.0 10*3/uL (no code) 3.5 - 10.5 Via [facility] i (Bld) 10*3/uL [facility] (55244) blood hematocrit (volume fraction) on 2018-01-13 Hematocrit Auto 41 % (no code) 36.1 - 50.3 % Via Chr isti Volume Fraction Hospital (d) [place] (00486) blood erythrocytes automated count (number/volume) on 2018-01-13 RBC Auto #/vol 5.26 10*6/uL (no code) 4.2 - 6.1 Via [facility] i (d) 10*6/uL [facility] (02973) bacteria detection in urine sediment by light microscopy on 2018-01-13 Bacteria LM Ql TRACE (no code) Via [facility] (Urine sed) [facility] (95934) automated urine sediment leukocyte count by microscopy (number/high power field) on 2018-01-13 WBC LM.HPF no information (no code) Via [facility] #/area (Urine Hospital sed) [place] (72800) automated urine sediment erythrocyte count by microscopy (number/high power field) on 2018-01-13 RBC LM.HPF NONE (no code) Via [facility] #/area (Urine Hospital sed) [place] (30916) automated erythrocyte mean corpuscular volume on 2018-01-13 MCV Auto Entitic 79 fL (L) 80 - 100 fL Via Chri sti volume (RBC) [facility] (68385) automated erythrocyte mean corpuscular hemoglobin concentration measurement (mass/volume) on 2018-01-13 MCHC Auto mass 36 g/dL (no code) 32 - 36 g/dL Via [facility] ti conc (RBC) [facility] (02165) automated erythrocyte mean corpuscular hemoglobin (mass per erythrocyte) on 2018-01-13 MCH Auto Entitic 28 pg (no code) 27 - 31 pg Via [facility] ti mass (RBC) [facility] (32642) automated erythrocyte distribution width ratio on 2018-01-13 Erythrocyte 14.5 % (no code) 11.6 - 14.6 % Via [facility] distribution Hospital width Auto Ratio [place] (RBC) (92272) automated eosinophil count on 2018-01-13 Eosinophils Auto 0.6 10*3/uL (H) 0.05 - 0.5 Via [facility] ti #/vol (Bld) 10*3/uL [facility] (46587) automated blood platelet mean volume measurement on 2018-01-13 Platelet mean 9.8 fL (no code) 7.2 - 11.7 fL Via Abundio ti volume Auto Hospital Entitic volume [place] (Bld) (10795) automated blood platelet count (count/volume) on 2018-01-13 Platelets Auto 347 10*3/uL (no code) 150 - 450 Via [facility] #/vol (Bld) 10*3/uL [facility] (77447) automated blood neutrophils/100 leukocytes on 2018-01-13 Neutrophils/100 62 % (no code) 40 - 60 % Via Jnuo i WBC Auto (Bld) [facility] (02358) automated blood lymphocytes/100 leukocytes on 2018-01-13 Lymphocytes/100 27 % (no code) 20 - 40 % Via Juno i WBC Auto (Bld) [facility] (03012) automated blood eosinophils/100 leukocytes on 2018-01-13 Eosinophils/100 6 % (no code) 1 - 4 % Via [facility] i WBC Auto (Bld) [facility] (00861) automated blood basophils/100 leukocytes on 2018-01-13 Basophils/100 0 % (no code) 0.5 - 1 % Via [facility] WBC Auto (Bld) [facility] (12052) automated blood basophil count (count/volume) on 2018-01-13 Basophils Auto 0.0 10*3/uL (no code) 0 - 0.3 10*3/uL Via risti #/vol (Bld) [facility] (70132) thyroid on 2017-11-09 Thyrotropin Qn 3.73 m[IU]/L (N) 0.4 - 4 m[IU]/L Not A vailable (33943) other on 2017-11-09 Albumin/Globulin 1.4 (N) Not Available mass ratio (11295) Cholesterol in no information (no code) Not Available LDL mass conc (29119) Cholesterol non 155 (H) Not Available HDL mass conc (39944) Cholesterol.tota 7.0 (H) Not Available l/Cholesterol in (11640) HDL mass ratio Globulin 2.9 (N) Not Available Calculated mass (22870) conc (S) metabolic panel on 2017-11-09 Albumin mass 4.1 g/dL (N) 3.4 - 5.4 g/dL Not Avail able conc (29844) ALP enzyme 62 U/L (N) 44 - 147 U/L Not Availabl e act/vol (50510) ALT enzyme 32 U/L (H) 4 - 40 U/L Not Available act/vol (65102) AST enzyme 25 U/L (N) 10 - 34 U/L Not Available act/vol (16650) Bilirubin mass 0.3 mg/dL (N) 0.1 - 1.2 mg/dL Not Av ailable conc (79364) Calcium mass 9.0 mg/dL (N) 8.5 - 10.2 mg/dL Not Mayra ilable conc (17922) Chloride molar 105 mmol/L (N) 95 - 106 mmol/L Not Av ailable conc (81502) CO2 molar conc 21 mmol/L (N) 23 - 29 mmol/L Not Mayra ilable (17473) Creatinine mass 0.64 mg/dL (N) Not Available conc (09175) GFR/1.73 sq M 132 (N) 90 - 120 Not Availabl e predicted among mL/min/{1.73_m2} mL/min/{1.73_m2} (61072) blacks MDRD vol rate/area (S/P/Bld) GFR/1.73 sq 114 (N) 90 - 120 Not Available M.predicted MDRD mL/min/{1.73_m2} mL/min/{1.73_m2} (25538) vol rate/area Glucose mass 187 mg/dL (H) 60 - 125 mg/dL Not Avail able conc (26484) Potassium molar 4.3 mmol/L (N) 3.7 - 5.2 mmol/L Not Available conc (32340) Protein mass 7.0 g/dL (N) 6.4 - 8.3 g/dL Not Avail able conc (66737) Sodium molar 137 mmol/L (N) 135 - 145 mmol/L Not Mayra ilable conc (60808) Urea nitrogen 9 mg/dL (N) 7 - 20 mg/dL Not Availa ble mass conc (25015) Urea NOT APPLICABLE (no code) Not Available nitrogen/Creatin (81957) ine mass ratio cardiac on 2017-11-09 Cholesterol in 26 mg/dL (L) Not Available HDL mass conc (66600) Cholesterol mass 181 mg/dL (N) 180 - 200 mg/dL Not Available conc (00561) Triglyceride 508 mg/dL (H) 0 - 150 mg/dL Not Availa ble mass conc (56392) urinalysis on 2017-09-28 Color Nom (U) 07/2018~clear~ye (no code) [facility] (43346) other on 2017-09-28 A:C (IN HOUSE) 30-300 (no code) [facility] (60004) CRE 30~100 (no code) [facility] (28961) Exp date 06/2019 (no code) [facility] (12506) Lot [id number] (no code) [facility] (93856) Lot # [id number] (no code) [facility] ([id number]) MICROALBUMIN Abnormal (no code) [facility] ([id number]) urinalysis on 2016-07-12 Bacteria Note (no code) 07-12-2016 Not Available identified Cx 00:36-0400 (72580) Nom (U) urinalysis on 2016-07-11 Albumin DL <= 20 66.8 (no code) 07-11-2016 Not Avail able mg/L (U) 11:32-0400 (29979) [Mass/Vol] Creatinine (U) 257.8 mg/dL (no code) 07-11-2016 Not Availab le [Mass/Vol] 11:32-0400 (98387) other on 2016-07-11 Albumin/Creatini 25.9 (no code) 07-11-2016 Not Avail able ne (U) [Mass 11:32-0400 (13566) ratio] Vital Signs Vital Sign Value Interpretation Reference Date Time Care Prov ider Facility (Normalized) (Normalized) Range BMI (Body Mass 47.13 kg/m2 (no code) 15 - 25 kg/m2 11-09-2017 B ANAI [facility] Index) 15:20-0400 86781 [facility] (39023) Body height 162.56 cm (no code) cm 07-19-2018 [facility] 11:40-0400 54226 [facility] (90450) Body height 162.56 cm (no code) cm 05-22-2014 [facility] 11:25-0500 95050 [facility] (98100) Body height 162.56 cm (no code) cm 08-04-2013 [facility] 10:55[facility]0400 44985 [facility] (88564) Body mass 45.02 kg/m2 (no code) 15 - 25 kg/m2 07-19-2018 [facility] Community index (BMI) 11:40-0400 81117 [facility] [[facility]] [facility] (37397) Body 98.2 [degF] (no code) 97.8 - 99.0 07-19-2018 [facility] temperature [degF] 11:40-0400 36891 [facility] (97679) Body 97.7 [degF] (no code) 97.8 - 99.0 11-09-2017 [facility] Temperature [degF] 15:20-0400 67768 [facility] (97845) Body 96.4 [degF] (no code) 97.8 - 99.0 05-22-2014 TATIANA SHANTI NNAN Community temperature [degF] 11:25-0500 79536 [facility] (20327) Body 99.1 [degF] (no code) 97.8 - 99.0 12-28-2013 TATIANA COLLIER [facility] Temperature [degF] 14:32-0400 36739 [facility] (25160) Body 97.6 [degF] (no code) 97.8 - 99.0 10-20-2013 TATIANAMO COLLIER [facility] Temperature [degF] 12:18-0400 05118 [facility] (50337) Body 99.4 [degF] (no code) 97.8 - 99.0 08-04-2013 LUIS TAVERAS [facility] temperature [degF] 10:55-[address] [place] [address] (60948) Body weight 118.98 kg (no code) kg 07-19-2018 TATIANAMO MELGOZA [facility] 11:40-0400 28765 [facility] (98866) Body weight 124.06 kg (no code) kg 05-22-2014 TATIANAMO MELGOZA [facility] 11:25-0500 52150 [facility] (47792) Body weight 128.69 kg (no code) kg 12-28-2013 TATIANAMO MELGOZA [facility] 14:32-0400 18282 [facility] (30352) Body weight 99.38 kg (no code) kg 10-20-2013 TATIANAMO DEMPSEY [facility] 12:180400 31254 [facility] (19173) Body weight 126.74 kg (no code) kg 08-04-2013 LUIS Lindsey [facility] 10:55-0400 91750 [facility] (65511) Height 162.56 cm (no code) cm 01-01-2018 [facility] 09:15-0400 07610 [facility] (68093) Height 162.56 cm (no code) cm [facility]-09-[facility] 15:20-0400 43637 [facility] (22385) Height 162.56 cm (no code) cm 12-28-2013 [facility] 14:32-0400 10546 [facility] (91038) Height 162.56 cm (no code) cm 10-20-2013 [facility] 12:18-0400 15316 [facility] (44941) Oxygen 98 % (no code) 95 - 100 % 07-19-2018 [facility] saturation in 11:40-[address] [place] [address] Arterial blood [facility] [place] (72811) oximetry Weight 124.56 kg (no code) kg 11-09-2017 [facility] 15:20-[id number] [place] [address] (34483) Interventions No Information Plan of Treatment Normalized Care Care Detail Care Activity Date Care Provider F acility Activity (CHM) [facility] 02-03-2018 TATIANA DEMPSEY N [address]33 [facility] ([id number]) ([facility]) [facility] 05-19-2018 TATIANA DEMPSEY N 90588 [facility] (58107) [facility] 08-10-2019 TATIANA ROSEN 66 [phone] [facility] (06102) Goals No Information Social History The data below is from unstructured sources History Response Recorde d Date/Time Hx Family Cancer N 01/25 9:50am Hx Family Cardiac Disorders Y 01/25/13 9:50am Hx Family Stroke Y 01/25 9:50am Hx Family Hypertension Y BRO 01/25/13 9:50am History Response Recorde d Date/Time Alcohol Use Denies Use 1 9:50am Recreational Drug Use N thc and alcohol 01/25/13 9:50am Recent Foreign Travel N 01/25/13 9:50am Recent Infectious Disease Exposure N 01/25/13 9:50am Hospitalization with Isolation Denies 01/28/13 5:04pm Functional Status The data below is from unstructured sources Query Response Date Clyde rded Comprehension Ability Understands Co ncepts May 17, 2014 8:11am Mental Status No Information Encounters Encounter Normalized Encounter Encounter Diagnosis Care Provi roma Organization Date Type 01-13-2018 Admission to day no information GEO DACOSTA Work no organization name - surgery Phone: 01-14-2018 10-07-2019 Evaluation and no information GEO DACOSTA DO (no [facility] management of phone) [facility] inpatient (no phone) 06-13-2016 Evaluation and no information no name no organ ization name - management of 06-16-2016 inpatient 05-15-2014 Evaluation and no information no name no organ ization name - management of 05-17-2014 inpatient NEGATED Patient encounter no information no name no or ganization name 01-13-2018 - 01-14-2018 01-12-2018 Patient encounter no information GEO DACOSTA Work no organization name - 01-12-2018 01-01-2018 Patient encounter no information no name no or ganization name 11-09-2017 Patient encounter no information no name no or ganization name 09-28-2017 Patient encounter no information no name no or ganization name 06-19-2017 Patient encounter no information no name no or ganization name 02-01-2016 Patient encounter no information no name no or ganization name 02-11-2013 Patient encounter no information no name no or ganization name 01-18-2013 Patient encounter no information no name no or ganization name 11-29-2012 Patient encounter no information no name no or ganization name NEGATED Patient encounter no information no name no or ganization name 11-01-2012 10-01-2012 Patient encounter no information no name no or ganization name 10-03-2019 Patient encounter no information GEO DACOSTA DO ( no [facility] - procedure phone) [facility] 10-03-2019 (no phone) 09-22-2019 Patient encounter no information GEO DACOSTA DO ( no [facility] [address] procedure phone) [facility] (no phone) 05-17-2019 Patient encounter no information no name no or ganization name procedure 09-18-2018 Patient encounter no information no name no or ganization name procedure 07-19-2018 Patient encounter no information no name no or ganization name procedure 06-14-2018 Patient encounter no information no name no or ganization name procedure 06-07-2018 Patient encounter no information no name no or ganization name procedure 06-13-2016 Patient encounter no information no name no or ganization name - procedure 06-16-2016 05-15-2014 Patient encounter no information no name no or ganization name - procedure 05-17-2014 08-10-2019 Telephone encounter 26 weeks gestation of TATIANA RAMOS (no [facility] phone) (no phone) 07-29-2019 Telephone encounter no information TATIANA JESSIKA ( no [facility] phone) (no phone) 07-06-2019 Telephone encounter Type 2 diabetes TATIANA JESSIKA (no [facility] mellitus without phone) (no phone) complications 06-22-2019 Telephone encounter no information TATIANA JESSIKA ( no [facility] phone) (no phone) 06-14-2019 Telephone encounter no information TATIANA JESSIKA ( no [facility] phone) (no phone) 06-13-2019 Telephone encounter Type 2 diabetes [facility]IK[facility] mellitus without phone) (no phone) complications 06-09-2019 Telephone encounter no information [facility] JESSIKA [facility] phone) (no phone) 07-30-2018 Telephone encounter no information TATIANA JESSIKA ( no [facility] phone) (no phone) no information Encounter for other no name no organiz ation name preprocedural examination no information Pre-procedural no name no organization name laboratory examination Medical Equipment Equipment Code (if Equipment Original Equipment Identifier P rocedure Code (if Dates provided) Text (if provided) (if provided) provided) no information as directed for use no information (no no inform ation no information with Lantus Pen named assigning injector authority) no information as directed for use no information (no no inform ation no information with Lantus Pen named assigning injector authority) Payers The data below is from unstructured sources Payer Name Policy Number Subscriber Name Relationship [facility] [id number] Sandrine Huffman 01 Self / Same As Patient History general Narrative - Reported Note Type Note Facility History general Narrative - Reported Type Medical type II diabetes History Medical obesity History Medical Hypothyroidism History Medical anxiety History Medical hyperlipidemia History Medical ocular hypertension 09/2017 History Surgical section x 4 History Surgical tonsillectomy History Surgical cholecystectomy History Surgical adenoidectomy History Surgical [place] May 2016 History Hospitaliz surgeries ation History Hospitaliz Abses removed from [place] ation History Hospitaliz miscarriage--over night stay 02/2017 ation [facility] ([id number]) Summary Purpose eClinicalWorks SubmissioneClinicalWorks SubmissioneClinicalWorks SubmissioneClinicalWorks SubmissioneClinicalWorks SubmissioneClinicalWorks SubmissioneClinicalWorks SubmissioneClinicalWorks SubmissioneClinicalWorks SubmissioneClinicalWorks SubmissioneClinicalWorks Submission Advance Directives Directive Response Recor ded Date/Time Advance Directives Yes 0 10/21/15 10:24pm Organ Donor Yes 10/21/15 10:24pm Directive Response Recor ded Date/Time Advance Directives No 5:03pm Organ Donor Yes 10/21/15 10:24pm Resuscitation Status Full Code 04/13/16 5:03pm Directive Response Recor ded Date/Time Advance Directives Yes 0 10/21/15 10:24pm Organ Donor Yes 10/21/15 10:24pm Resuscitation Status Full Code 10/21/15 10:24pm Directive Response Recor ded Date/Time Advance Directives Yes 0 06/18/15 2:02pm Organ Donor Yes 06/18/15 2:02pm Resuscitation Status Full Code 06/18/15 2:02pm Directive Response Recor ded Date/Time Advance Directives Yes 0 05/16/14 12:00am Organ Donor Yes 05/15/14 6:48pm Resuscitation Status Full Code 05/16/14 12:00am Directive Response Recor ded Date Advance Directives N 05/09 8:21am Organ Donor Y 01/25/13 8 :21am Directive Response Recor ded Date/Time Advance Directives No 4:58pm Organ Donor Yes 03/06/14 4:58pm Resuscitation Status Full Code 03/06/14 4:58pm Directive Response Recor ded Date/Time Advance Directives No 10:24pm Organ Donor Yes 12/31/16 10:24pm Resuscitation Status Full Code 12/31/16 10:24pm Directive Response Recor ded Date/Time Advance Directives No 2:28pm Organ Donor Yes 03/03/17 2:28pm Resuscitation Status Full Code 03/03/17 2:28pm Directive Response Recor ded Date/Time Advance Directives No 10:55am Organ Donor Yes 01/13/18 10:55am Resuscitation Status Full Code 01/13/18 10:55am Discharge Instructions No hospital discharge instructions.No hospital discharge instructions.No hospital discharge instructions.No hospital discharge instructions. Patient Instructions Physician Instructions New, Converted or Re-Newed RX: Call to Patients Pharmacy Patient Instructions Stop taking the Glimepiride. We started long acting insulin to take at night. Check your blood sugars at least twice daily. You may start taking the metformin the morning of 05-18-14. Goal/Follow Up Appt: Follow up with Dr. Dacosta on 06-01-14 at 11:30 AM We would recommend you continue to follow with Tatiana Rosen APRN at the [facility], however if you wish to change providers to another service we will happily send your records. Discharge Diet: ADA Diet No hospital discharge instructions.No hospital discharge instruction information available.No hospital discharge instruction information available.No hospital discharge instruction information available. Additional Source Comments This clinical document has been generated using [employer] software that has been certified by the Office of the National Coordinator for Health Information Technology (ONC 15.99.04.3023.Diam.31.00.0.821374) and the National Committee for Bi Manager (NCQA, as an eMeasure certified technology). FOR RECORDS PERTAINING TO PATIENTS WHO ARE OR HAVE BEEN ENROLLED IN A CHEMICAL D EPENDENCY/SUBSTANCE ABUSE PROGRAM, SOME INFORMATION MAY BE OMITTED. This clinica l summary was aggregated from multiple sources. Caution should be exercised in using it in the provision of clinical care. This summary normalizes information from multiple sources, and as a consequence, information in this document may ma terially change the coding, format and clinical context of patient data. In katelyn tion, data may be omitted in some cases. CLINICAL DECISIONS SHOULD BE BASED ON T HE PRIMARY CLINICAL RECORDS. [employer] provides no warranty or guara ntee of the accuracy or completeness of information in this document.The followi ng information is based on time limited clinical information UNRECOGNIZED CONTENT PROVIDED BELOW FOR UNRECOGNIZED SECTION MEDICAL (GENERAL) HISTORY Type Description Date Medical History type II diabetes Medical History obesity Medical History Hypothyroidism Medical History anxiety Medical History hyperlipidemia Surgical History section x 4 Surgical History tonsillectomy Surgical History cholecystectomy Surgical History adenoidectomy Surgical History [place]es from [place] May 2016 Hospitalization History surgeries Hospitalization History Abses remove d from [place] Type Description Date Medical History type II diabetes Medical History obesity Medical History Hypothyroidism Medical History anxiety Medical History hyperlipidemia Surgical History section x 4 Surgical History tonsillectomy Surgical History cholecystectomy Surgical History adenoidectomy Surgical History Abses from [place] May 2016 Hospitalization History surgeries Hospitalization History Abses remove d from [place] Hospitalization History miscarriage- -over night stay 02/2017 Type Description Date Medical History type II diabetes Medical History obesity Medical History Hypothyroidism Medical History anxiety Medical History hyperlipidemia Medical History ocular hypertension 09/2017 Surgical History section x 4 Surgical History tonsillectomy Surgical History cholecystectomy Surgical History adenoidectomy Surgical History Abses from [place] May 2016 Hospitalization History surgeries Hospitalization History Abses remove d from [place] Hospitalization History miscarriage- -over night stay 02/2017 UNRECOGNIZED CONTENT PROVIDED BELOW FOR UNRECOGNIZED SECTION REASON FOR VISIT ADHD,PT stated not ADHD but is an DM apt-[facility] MARefill requestleft toe pain-x ray done - MPeters, MAMedication refill requestControlled Med Refill 04/12/18EMR -[id number] Pt in for follow up KENZIE Yeboah
--- OUTSIDE RECORDS SUMMARY | 2019-10-07 12:25 | XMS REPORT ---
Author Author Dano ROSEN Organization [facility] Address [address] [place] [address] Care Team Providers Care Assessment Technician Name Role Phone DAISY ROSEN Unavailable PROBLEMS Type Condition ICD9-CM Code BNU45-HT Code Onset Dates Condition S tatus SNOMED Code Problem Anxiety disorder, unspecified F41.9 Active 777798731 Problem Cannabis use disorder, mild, abuse F12.10 Active 88205885 Problem BMI 45.0-49.9, adult Z68.42 Active 751727336 Problem Ganglion of joint M67.40 Active 78 130751 Problem Tobacco use Z72.0 Active 76905787 0 Problem Anxiety F41.9 Active 64307763 Problem Type 2 diabetes mellitus E11.9 Activ e 66486401 Problem Fibrocystic breast, right N60.11 Acti ve 19200901 Problem Hypercholesteremia E78.0 Active 1 5473712 Problem Binge eating disorder F50.81 Active 402806120 Problem Fibrocystic breast, left N60.12 Activ e 37519100 Problem Hypertriglyceridemia E78.1 Active 629040540 Problem Chest pain, unspecified R07.9 Active 04873514 Problem Surveillance of contraceptive injection Z30.42 Active 014711315 Problem Abdominal pain, left upper quadrant R10.12 Active 082519094 Problem Hypothyroid E03.9 Active 45756101 Problem 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 Active 32989686 ALLERGIES No Information ENCOUNTERS Encounter Location Date Diagnosis [facility] [id number] [place] [address] Jul, 26 weeks gestation of pregna ncy Z3A.26 ; Type 2 diabetes mellitus E11.9 and Hypothyroid E03.9 [facility] [address] [facility] [id number] [address] [place] [address] Jul, [place] [address] [address] [facility] [id number] [address] [place] [phone] Jun, Type 2 diabetes mellitus E11 .9 [facility] [address] [facility] [id number] [address] [place] [phone] May, [facility] [address] [facility] [id number] [address] [place] [phone] May, [facility] [address] [facility] [id number] [address] [place] [phone] May, Type 2 diabetes mellitus E11 .9 [facility] [address] [facility] [id number] [address] [place] [phone] May, [facility] [address] [facility] [id number] [address] [place] [id number] Jul, Type 2 diabetes mellitus E11 .9 [facility] [address] [place] [id number] [address] [place] [phone] Jun, Type 2 diabetes mellitus E11 .9 ; Onychomycosis B35.1 and Morbid obesity E66.01 [place] [address] [place] [address] May, Type 2 diabetes mellitus E11 .9 ; Hypothyroid E03.9 ; Tobacco use Z72.0 and Vaginal yeast infection B37.3 [place] [address] [place] [address] May, BMI 45.0-49.9, adult Z68.42 [place] [address] [address] [place] [id number] [address] [place] [phone] 11 May, 2018 BMI 45.0-49.9, adult Z68.42 [place] [address] [address] [place] [id number] [address] [place] [id number] 07 May, 2018 BMI 45.0-49.9, adult Z68.42 [place] [address] [place] [address] Apr, BMI 45.0-49.9, adult Z68.42 [place] [address] [address] Mar, [place] [address] [address] Mar, BMI 45.0-49.9, adult Z68.42 [place] [address] [address] Feb, [place] [address] [address] Feb, [place] [address] [address] Feb, BMI 45.0-49.9, adult Z68.42 [place] [address] [address] Jan, BMI 45.0-49.9, adult Z68.42 [place] [address] [address] Jan, [place] [address] [address] Dec, History of miscarriage Z87.5 9 ; Type 2 diabetes mellitus E11.9 ; Hyperglycemia R73.9 ; Yeast vaginitis B37.3 ; BMI 45.0-49.9, adult Z68.42 and Binge eating disorder F50.81 [place] [address] [address] 17 Dec, 2017 BMI 45.0-49.9, adult Z68.42 ; Hypothyroid E03.9 and Type 2 diabetes mellitus E11.9 [place] [address] [address] 07 Dec, 2017 Onychomycosis B35.1 and Type 2 diabetes mellitus with diabetic neuropathy, unspecified whether fpc insulin use E11.40 [place] [address] [address] Oct, Hypertriglyceridemia E78.1 [facility] [address] [address] Oct, Type 2 diabetes mellitus E11 .9 ; Hypercholesteremia E78.0 and Hypothyroid E03.9 [facility] [address] [address] Sep, BMI 45.0-49.9, adult Z68.42 [place] [address] [address] Sep, Type 2 diabetes mellitus E11 .9 [place] [address] [address] Sep, [place] [address] [address] Sep, Type 2 diabetes mellitus E11 .9 [facility] [address] [address] 04 Sep, 2017 Hypothyroid E03.9 ; Type 2 d iabetes mellitus E11.9 ; Toe pain, left M79.675 and BMI 45.0-49.9, adult Z68.42 [facility] [address] [place] [id number] [address] [place] [phone] Jul, [facility] [address] [place] [id number] [address] [place] [address] May, Influenza-like illness R69 a nd BMI 40.0-44.9, adult Z68.41 [facility] [address] [address] May, Binge eating disorder F50.81 [facility] [address] [place] [id number] [address] [place] [address] Apr, [facility] [address] [address] Apr, Binge eating disorder F50.81 [facility] [address] [place] [id number] [address] [place] [address] Mar, Binge eating disorder F50.81 [facility] [address] [facility] [id number] [address] [place] [phone] Feb, [place] [address] [address] Feb, Diabetes E11.9 ; Binge eatin g disorder F50.81 and BMI 40.0-44.9, adult Z68.41 [place] [address] [address] Jan, Anxiety disorder, unspecifie d F41.9 and Anxiety F41.9 [place] [address] [address] [place] [id number] [address] [place] [address] Jan, Anxiety disorder, unspecifie d F41.9 ; Cannabis use disorder, mild, abuse F12.10 and Adjustment disorder with mixed disturbance of em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 [place] [address] [address] [place] [id number] [address] [place] [address] August, Hypothyroid E03.9 [place] [address] [address] [place] [id number] [address] [place] [address] August, Type 2 diabetes mellitus E11 .9 [place] [address] [place] [address] Jun, [place] [address] [address] [place] [id number] [address] [place] [address] Jun, Diabetes E11.9 ; Dysuria R30 .0 and Urinary tract infection without hematuria, site unspecified N39.0 [place] [address] [address] [place] [id number] [address] [place] [address] Jun, [place] [address] [address] [place] [id number] [address] [place] [address] May, [place] [address] [address] [place] [id number] [address] [place] [address] Mar, [place] [address] [place] [id number] [address] [place] [address] Mar, Pain of left leg M79.605 [place] [address] [address] [place] [id number] [address] [place] [address] Feb, [place] [address] [address] Feb, Type 2 diabetes mellitus E11 .9 [place] [address] [place] [id number] [address] [place] [address] Jan, [place] [address] [address] Jan, [place] [address] [place] [address] Jan, Discharge of breast N64.52 [place] [address] [address] [place] [id number] [address] [place] [address] 03 Jan, 2016 Menorrhagia N92.0 ; Encounte r for control Z30.9 ; Diabetes mellitus without mention of complication, type II or unspecified type, not stated as uncontrolled 250.00 ; Pain in right leg M79.604 ; Pain of left leg M79.605 ; Diabetes E11.9 ; Encounter for screening for malignant neoplasm of cervix Z12.4 ; Right foot pain M79.671 ; Anxiety 300.00 ; Other specified counseling Z71.89 ; Well woman exam Z01.419 ; Left upper quadrant pain R10.12 ; Tobacco abuse Z72.0 ; Obesity 278.00 ; Nondependent cannabis abuse, unspecified 305.20 ; BMI 45.0-49.9, adult Z68.42 ; Surveillance of contraceptive injection Z30.42 ; Routine screening for STI (sexually transmitted infection) Z11.3 ; Other chest pain R07.89 ; Screen for STD (sexually transmitted disease) Z11.3 ; Hypercholesteremia E78.0 ; Palpitations R00.2 ; Type 2 diabetes mellitus E11.9 ; Hypothyroid E03.9 ; Abdominal pain, left upper quadrant R10.12 ; Discharge of breast N64.52 ; Tobacco use Z72.0 ; Weight loss R63.4 ; Hyperlipidemia, unspecified hyperlipidemia type E78.5 ; Chest pain, unspecified R07.9 ; Fibrocystic breast, right N60.11 ; Fibrocystic breast, left N60.12 and Anxiety F41.9 [facility] [address] [id number] [address] [place] [address] Dec, Diabetes E11.9 ; Right foot pain M79.671 ; Left upper quadrant pain R10.12 ; Pain in right leg M79.604 ; Pain of left leg M79.605 ; Other chest pain R07.89 ; Palpitations R00.2 ; Hypothyroid E03.9 ; Discharge of breast N64.52 and Hyperlipidemia, unspecified hyperlipidemia type E78.5 [facility] [address] [facility] [id number] [address] [place] [phone] Dec, [facility] [address] [id number] [address] [place] [phone] Oct, [facility] [address] [id number] [address] [place] [phone] Oct, [facility] [address] [id number] [address] [place] [phone] Sep, [facility] [address] [facility] [id number] [address] [place] [phone] August, [facility] [address] [id number] [address] [place] [phone] August, [facility] [address] [id number] [address] [place] [id number] Jul, Hypothyroid E03.9 [facility] [address] [id number] [address] [place] [phone] Jun, [facility] [address] [facility] [id number] [address] [place] [phone] May, Menorrhagia N92.0 ; Diabetes E11.9 ; Hypothyroid E03.9 and Tobacco abuse Z72.0 [place] [address] [address] [facility] [id number] [address] [place] [id number] 15 May, 2015 [place] [address] [facility] [id number] [address] [place] [phone] 09 May, 2015 Well woman exam Z01.419 ; BM I 45.0-49.9, adult Z68.42 ; Type 2 diabetes mellitus E11.9 ; Weight loss R63.4 ; Chest pain, unspecified R07.9 ; Hypercholesteremia E78.0 and Routine screening for STI (sexually transmitted infection) Z11.3 [place] [address] [address] [facility] [id number] [address] [place] [address] 05 May, 2015 [place] [address] [address] [place] [id number] [address] [place] [address] 04 May, 2015 Well woman exam Z01.419 ; En counter for screening for malignant neoplasm of cervix Z12.4 ; BMI 45.0-49.9, adult Z68.42 ; Surveillance of contraceptive injection Z30.42 ; Routine screening for STI (sexually transmitted infection) Z11.3 ; Hypercholesteremia E78.0 ; Type 2 diabetes mellitus E11.9 ; Abdominal pain, left upper quadrant R10.12 ; Tobacco use Z72.0 ; Weight loss R63.4 ; Chest pain, unspecified R07.9 ; Fibrocystic breast, right N60.11 ; Fibrocystic breast, left N60.12 and Anxiety F41.9 [place] [address] [address] [place] [id number] [address] [place] [phone] May, [place] [address] [address] [facility] [id number] [address] [place] [phone] Mar, [place] [address] [place] [id number] [address] [place] [phone] Feb, [place] [address] [address] [place] [id number] [address] [place] [phone] Feb, Diabetes E11.9 ; Eustachian tube dysfunction, right H69.81 and Myalgia M79.1 [facility] [address] [address] Feb, [facility] [address] [address] Nov, Mastodynia, female 611.71 [facility] [address] [address] Oct, Obesity 278.00 [facility] [address] [address] Oct, Diabetes mellitus without me ntion of complication, type II or unspecified type, not stated as uncontrolled 250.00 ; Anxiety 300.00 and Obesity 278.00 [facility] [address] [address] Sep, [facility] [address] [address] Sep, Diabetes mellitus without me ntion of complication, type II or unspecified type, not stated as uncontrolled 250.00 and Anxiety 300.00 [facility] [address] [address] Sep, [facility] [address] [address] Jul, [facility] [address] [address] Jul, [facility] [address] [address] Jun, [facility] [address] [address] Jun, [facility] [address] [place] [id number] [address] [place] [phone] May, [facility] [address] [address] May, [facility] [address] [id number] [address] [place] [address], [place] [id number] Apr, [facility] [address] [id number] [address] [place] [address], [place] [id number] Apr, [facility] [address] [id number] [address] [place] [address], [place] [id number] Apr, [facility] [address] [id number] [address] [place] [address], [place] [id number] Apr, [facility] [address] [id number] [address] [place] [address], [place] [id number] Apr, [facility] [address] [id number] [address] [place] [address], [place] [id number] Apr, [facility] [address] [id number] [address] [place] [address], [place] [id number] Apr, [facility] [address] [id number] [address] [place] [address], [place] [id number] Apr, [facility] [address] [id number] [address] [place] [address], [place] [id number] Apr, [facility] [address] [id number] [address] [place] [address], [place] [id number] Apr, [facility] [address] [id number] [address] [place] [address], [place] [id number] Apr, [facility] [address] [id number] [address] [place] [address], [place] [id number] Feb, [facility] [address] [id number] [address] [place] [address], [place] [id number] Feb, [facility] [address] [id number] [address] [place] [address], [place] [id number] Dec, [facility] [address] [id number] [address] [place] [address], [place] [id number] Dec, [facility] [address] [id number] [facility] [place] [id number] 04 Dec, 2013 [facility] [address] [id number] [address] [place] [address], [place] [id number] 04 Dec, 2013 [facility] [address] [id number] [address] [place] [address], [place] [id number] 03 Dec, 2013 [facility] [address] [id number] [address] [place] [address], [place] [id number] 03 Dec, 2013 [facility] [address] [id number] [address] [place] [address], [place] [id number] Oct, [facility] [address] [id number] [address] [place] [address], [place] [id number] Oct, [facility] [address] [id number] [address] [place] [address], [place] [id number] Sep, [facility] [address] [id number] [address] [place] [address], [place] [id number] Sep, [facility] [address] [id number] [address] [place] [address], [place] [id number] Sep, [facility] [address] [id number] [address] [place] [address], [place] [id number] Sep, [facility] [address] [id number] [address] [place] [address], [place] [id number] Sep, [facility] [address] [id number] [address] [place] [address], [place] [id number] Sep, [facility] [address] [id number] [address] [place] [address], [place] [id number] Sep, [facility] [address] [id number] [address] [place] [address], [place] [id number] Sep, [facility] [address] [id number] [address] [place] [address], [place] [id number] August, [facility] [address] [id number] [address] [place] [address], [place] [id number] August, [facility] [address] [id number] [facility] [place] [id number] August, [facility] [address] [id number] [address] [place] [address], [place] [id number] August, [facility] [address] [id number] [address] [place] [address], [place] [id number] August, [facility] [address] [id number] [address] [place] [address], [place] [id number] August, [facility] [address] [id number] [address] [place] [address], [place] [address] Jul, [facility] [address] [id number] [address] [place] [address], [place] [id number] Jul, [facility] [address] [id number] [address] [place] [address], [place] [id number] Jun, [facility] [address] [id number] [address] [place] [address], [place] [id number] Jun, [facility] [address] [id number] [address] [place] [address], [place] [id number] May, [facility] [address] [id number] [address] [place] [address], [place] [id number] Apr, [facility] [address] [id number] [address] [place] [address], [place] [id number] Apr, [facility] [address] [id number] [address] [place] [address], [place] [id number] Apr, [facility] [address] [id number] [address] [place] [address], [place] [id number] Apr, [facility] [address] [id number] [address] [place] [address], [place] [id number] Apr, [facility] [address] [id number] [address] [place] [address], [place] [id number] Apr, [facility] [address] [id number] [address] [place] [address], [place] [id number] Mar, [facility] [address] [id number] [address] [place] [address], [place] [id number] Mar, [facility] [address] [id number] [address] [place] [address], [place] [id number] Mar, [facility] [address] [id number] [address] [place] [address], [place] [id number] Mar, [facility] [address] [id number] [address] [place] [address], [place] [id number] Mar, [facility] [address] [id number] [address] [place] [address], [place] [id number] Mar, [facility] [address] [id number] [address] [place] [address], [place] [id number] Mar, [facility] [address] [id number] [address] [place] [address], [place] [id number] Mar, [facility] [address] [id number] [address] [place] [address], [place] [id number] Mar, [facility] [address] [id number] [address] [place] [address], [place] [id number] Mar, [facility] [address] [id number] [address] [place] [address], [place] [id number] Mar, [facility] [address] [id number] [address] [place] [address], [place] [id number] Mar, [facility] [address] [id number] [address] [place] [address], [place] [id number] Nov, [facility] [address] [id number] [address] [place] [address], [place] [id number] Nov, [facility] [address] [id number] [address] [place] [address], [place] [id number] Sep, [facility] [address] [id number] [address] [place] [address], [place] [id number] August, [facility] [address] [id number] [address] [place] [id number] August, [facility] [address] [facility] [id number] [address] [place] [id number] August, [facility] [address] [facility] [id number] [address] [place] [id number] August, [facility] [address] [facility] [id number] [address] [place] [id number] August, [facility] [address] [facility] [id number] [address] [place] [id number] Jul, IMMUNIZATIONS No Known Immunizations SOCIAL HISTORY Never Assessed REASON FOR VISIT PLAN OF CARE VITAL SIGNS MEDICATIONS No Known Medications RESULTS No Results PROCEDURES No Known procedures INSTRUCTIONS MEDICATIONS ADMINISTERED No Known Medications MEDICAL (GENERAL) HISTORY Type Description Date Medical History type II diabetes Medical History obesity Medical History Hypothyroidism Medical History anxiety Medical History hyperlipidemia 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
--- OUTSIDE RECORDS SUMMARY | 2019-10-07 12:25 | XMS REPORT ---
Author Author Dano ROSEN Organization [facility] Address [address] [place] [address] Care Team Providers Care Residential Concierge Name Role Phone DAISY ROSEN Unavailable PROBLEMS Type Condition ICD9-CM Code [id number] Code Onset Dates Condition S tatus SNOMED Code Problem Anxiety disorder, unspecified F41.9 Active 196631284 Problem Cannabis use disorder, mild, abuse F12.10 Active 89215537 Problem BMI 45.0-49.9, adult Z68.42 Active 097144934 Problem Ganglion of joint M67.40 Active 78 558879 Problem Tobacco use Z72.0 Active 24839194 0 Problem Anxiety F41.9 Active 47808425 Problem Type 2 diabetes mellitus E11.9 Activ e 72597171 Problem Fibrocystic breast, right N60.11 Acti ve 39805929 Problem Hypercholesteremia E78.0 Active 1 0405141 Problem Binge eating disorder F50.81 Active 591280944 Problem Fibrocystic breast, left N60.12 Activ e 87125940 Problem Hypertriglyceridemia E78.1 Active 139837752 Problem Chest pain, unspecified R07.9 Active 04656863 Problem Surveillance of contraceptive injection Z30.42 Active 695578941 Problem Abdominal pain, left upper quadrant R10.12 Active 832643548 Problem Hypothyroid E03.9 Active 14617355 Problem 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 Active 73961463 ALLERGIES No Information ENCOUNTERS Encounter Location Date Diagnosis [facility] [address] [place] [address] Jul, 26 weeks gestation of pregna ncy Z3A.26 ; Type 2 diabetes mellitus E11.9 and Hypothyroid E03.9 [facility] [address] [facility] [id number] [address] [place] [address] Jul, [place] [address] [facility] [id number] [address] [place] [address] Jun, Type 2 diabetes mellitus E11 .9 [facility] [address] [facility] [id number] [address] [place] [address] May, [facility] [address] [facility] [id number] [address] [place] [address] May, [facility] [address] [facility] [id number] [address] [place] [address] May, Type 2 diabetes mellitus E11 .9 [facility] [address] [facility] [id number] [address] [place] [address] May, [facility] [address] [facility] [id number] [address] [place] [address] Jul, Type 2 diabetes mellitus E11 .9 [facility] [address] [place] [id number] [address] [place] [address] Jun, Type 2 diabetes mellitus E11 .9 ; Onychomycosis B35.1 and Morbid obesity E66.01 [place] [address] [place] [address] May, Type 2 diabetes mellitus E11 .9 ; Hypothyroid E03.9 ; Tobacco use Z72.0 and Vaginal yeast infection B37.3 [place] [address] [place] [address] May, BMI 45.0-49.9, adult Z68.42 [place] [address] [place] [id number] [address] [place] [address] 11 May, 2018 BMI 45.0-49.9, adult Z68.42 [place] [address] [place] [id number] [address] [place] [address] 07 May, 2018 BMI 45.0-49.9, adult Z68.42 [place] [address] [place] [address] Apr, BMI 45.0-49.9, adult Z68.42 [place] [address] [address] Mar, [place] [address] [address] Mar, BMI 45.0-49.9, adult Z68.42 [place] [address] [address] Feb, [place] [address] [address] Feb, [place] [address] [address] Feb, BMI 45.0-49.9, adult Z68.42 [place] [address] [address] Jan, BMI 45.0-49.9, adult Z68.42 [place] [address] [address] Jan, [place] [address] [address] Dec, History of miscarriage Z87.5 9 ; Type 2 diabetes mellitus E11.9 ; Hyperglycemia R73.9 ; Yeast vaginitis B37.3 ; BMI 45.0-49.9, adult Z68.42 and Binge eating disorder F50.81 [place] [address] [address] 17 Dec, 2017 BMI 45.0-49.9, adult Z68.42 ; Hypothyroid E03.9 and Type 2 diabetes mellitus E11.9 [place] [address] [address] 07 Dec, 2017 Onychomycosis B35.1 and Type 2 diabetes mellitus with diabetic neuropathy, unspecified whether nursing home insulin use E11.40 [place] [address] [address] Oct, Hypertriglyceridemia E78.1 [facility] [address] [address] Oct, Type 2 diabetes mellitus E11 .9 ; Hypercholesteremia E78.0 and Hypothyroid E03.9 [facility] [address] [address] Sep, BMI 45.0-49.9, adult Z68.42 [place] [address] [address] Sep, Type 2 diabetes mellitus E11 .9 [place] [address] [address] Sep, [place] [address] [address] Sep, Type 2 diabetes mellitus E11 .9 [facility] [address] [address] 04 Sep, 2017 Hypothyroid E03.9 ; Type 2 d iabetes mellitus E11.9 ; Toe pain, left M79.675 and BMI 45.0-49.9, adult Z68.42 [facility] [address] [place] [id number] [address] [place] [address] Jul, [facility] [address] [place] [id number] [place] [address] May, Influenza-like illness R69 a nd BMI 40.0-44.9, adult Z68.41 [facility] [address] [address] May, Binge eating disorder F50.81 [facility] [address] [place] [id number] [place] [address] Apr, [facility] [address] [address] Apr, Binge eating disorder F50.81 [facility] [address] [place] [id number] [place] [address] Mar, Binge eating disorder F50.81 [facility] [address] [facility] [id number] [address] [place] [address] Feb, [place] [address] [address] Feb, Diabetes E11.9 ; Binge eatin g disorder F50.81 and BMI 40.0-44.9, adult Z68.41 [place] [address] [address] Jan, Anxiety disorder, unspecifie d F41.9 and Anxiety F41.9 [place] [address] [place] [id number] [place] [address] Jan, Anxiety disorder, unspecifie d F41.9 ; Cannabis use disorder, mild, abuse F12.10 and Adjustment disorder with mixed disturbance of em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 [place] [address] [place] [id number] [place] [address] August, Hypothyroid E03.9 [place] [address] [place] [id number] [place] [address] August, Type 2 diabetes mellitus E11 .9 [place] [address] [place] [address] Jun, [place] [address] [place] [id number] [place] [address] Jun, Diabetes E11.9 ; Dysuria R30 .0 and Urinary tract infection without hematuria, site unspecified N39.0 [place] [address] [place] [id number] [place] [address] Jun, [place] [address] [place] [id number] [place] [address] May, [place] [address] [place] [id number] [place] [address] Mar, [place] [address] [place] [id number] [place] [address] Mar, Pain of left leg M79.605 [place] [address] [place] [id number] [address] [place] [address] Feb, [place] [address] [address] Feb, Type 2 diabetes mellitus E11 .9 [place] [address] [place] [id number] [place] [address] Jan, [place] [address] [address] Jan, [place] [address] [place] [address] Jan, Discharge of breast N64.52 [place] [address] [place] [id number] [place] [address] 03 Jan, 2016 Menorrhagia N92.0 ; Encounte [...] Fibrocystic breast, left N60.12 and Anxiety F41.9 [facility] [address] [id number] [address] [place] [address] Dec, Diabetes E11.9 ; Right foot pain M79.671 ; Left upper quadrant pain R10.12 ; Pain in right leg M79.604 ; Pain of left leg M79.605 ; Other chest pain R07.89 ; Palpitations R00.2 ; Hypothyroid E03.9 ; Discharge of breast N64.52 and Hyperlipidemia, unspecified hyperlipidemia type E78.5 [facility] [address] [facility] [id number] [address] [place] [address] Dec, [facility] [address] [id number] [address] [place] [address] Oct, [facility] [address] [id number] [address] [place] [address] Oct, [facility] [address] [id number] [address] [place] [address] Sep, [facility] [address] [facility] [id number] [address] [place] [address] August, [facility] [address] [id number] [address] [place] [address] August, [facility] [address] [id number] [address] [place] [address] Jul, Hypothyroid E03.9 [facility] [address] [id number] [address] [place] [address] Jun, [facility] [address] [facility] [id number] [address] [place] [address] May, Menorrhagia N92.0 ; Diabetes E11.9 ; Hypothyroid E03.9 and Tobacco abuse Z72.0 [place] [address] [facility] [id number] [address] [place] [address] 15 May, 2015 [place] [address] [facility] [id number] [address] [place] [address] 09 May, 2015 Well woman exam Z01.419 ; BM I 45.0-49.9, adult Z68.42 ; Type 2 diabetes mellitus E11.9 ; Weight loss R63.4 ; Chest pain, unspecified R07.9 ; Hypercholesteremia E78.0 and Routine screening for STI (sexually transmitted infection) Z11.3 [place] [address] [facility] [id number] [address] [place] [address] 05 May, 2015 [place] [address] [place] [id number] [address] [place] [address] 04 May, 2015 Well woman exam Z01.419 [...] Fibrocystic breast, left N60.12 and Anxiety F41.9 [place] [address] [place] [id number] [place] [address] May, [place] [address] [facility] [id number] [address] [place] [address] Mar, [place] [address] [place] [id number] [address] [place] [address] Feb, [place] [address] [place] [id number] [place] [address] Feb, Diabetes E11.9 ; Eustachian tube dysfunction, right H69.81 and Myalgia M79.1 [facility] [address] [address] Feb, [facility] [address] [address] Nov, Mastodynia, female 611.71 [facility] [address] [address] Oct, Obesity 278.00 [facility] [address] [address] Oct, Diabetes mellitus without me ntion of complication, type II or unspecified type, not stated as uncontrolled 250.00 ; Anxiety 300.00 and Obesity 278.00 [facility] [address] [address] Sep, [facility] [address] [address] Sep, Diabetes mellitus without me ntion of complication, type II or unspecified type, not stated as uncontrolled 250.00 and Anxiety 300.00 [facility] [address] [address] Sep, [facility] [address] [address] Jul, [facility] [address] [address] Jul, [facility] [address] [address] Jun, [facility] [address] [address] Jun, [facility] [address] [place] [id number] [address] [place] [address] May, [facility] [address] [address] May, [facility] [address] [id number] [address] [place] [address], [place] [address] Apr, [facility] [address] [id number] [address] [place] [address], [place] [address] Apr, [facility] [address] [id number] [address] [place] [address], [place] [address] Apr, [facility] [address] [id number] [address] [place] [address], [place] [address] Apr, [facility] [address] [id number] [address] [place] [address], [place] [address] Apr, [facility] [address] [id number] [address] [place] [address], [place] [address] Apr, [facility] [address] [id number] [address] [place] [address], [place] [address] Apr, [facility] [address] [id number] [address] [place] [address], [place] [address] Apr, [facility] [address] [id number] [address] [place] [address], [place] [address] Apr, [facility] [address] [id number] [address] [place] [address], [place] [address] Apr, [facility] [address] [id number] [address] [place] [address], [place] [address] Apr, [facility] [address] [id number] [address] [place] [address], [place] [address] Feb, [facility] [address] [id number] [address] [place] [address], [place] [address] Feb, [facility] [address] [id number] [address] [place] [address], [place] [address] Dec, [facility] [address] [id number] [address] [place] [address], [place] [address] Dec, [facility] [address] [id number] [facility] [place] [address] 04 Dec, 2013 [facility] [address] [id number] [address] [place] [address], [place] [address] 04 Dec, 2013 [facility] [address] [id number] [address] [place] [address], [place] [address] 03 Dec, 2013 [facility] [address] [id number] [address] [place] [address], [place] [address] 03 Dec, 2013 [facility] [address] [id number] [address] [place] [address], [place] [address] Oct, [facility] [address] [id number] [address] [place] [address], [place] [address] Oct, [facility] [address] [id number] [address] [place] [address], [place] [address] Sep, [facility] [address] [id number] [address] [place] [address], [place] [address] Sep, [facility] [address] [id number] [address] [place] [address], [place] [address] Sep, [facility] [address] [id number] [address] [place] [address], [place] [address] Sep, [facility] [address] [id number] [address] [place] [address], [place] [address] Sep, [facility] [address] [id number] [address] [place] [address], [place] [address] Sep, [facility] [address] [id number] [address] [place] [address], [place] [address] Sep, [facility] [address] [id number] [address] [place] [address], [place] [address] Sep, [facility] [address] [id number] [address] [place] [address], [place] [address] August, [facility] [address] [id number] [address] [place] [address], [place] [address] August, [facility] [address] [id number] [facility] [address] August, [facility] [address] [id number] [address] [place] [address], [place] [address] August, [facility] [address] [id number] [address] [place] [address], [place] [address] August, [facility] [address] [id number] [address] [place] [address], [place] [address] August, [facility] [address] [id number] [address] [place] [address], [place] [address] Jul, [facility] [address] [id number] [address] [place] [address], [place] [address] Jul, [facility] [address] [id number] [address] [place] [address], [place] [address] Jun, [facility] [address] [id number] [address] [place] [address], [place] [address] Jun, [facility] [address] [id number] [address] [place] [address], [place] [address] May, [facility] [address] [id number] [address] [place] [address], [place] [address] Apr, [facility] [address] [id number] [address] [place] [address], [place] [address] Apr, [facility] [address] [id number] [address] [place] [address], [place] [address] Apr, [facility] [address] [id number] [address] [place] [address], [place] [address] Apr, [facility] [address] [id number] [address] [place] [address], [place] [address] Apr, [facility] [address] [id number] [address] [place] [address], [place] [address] Apr, [facility] [address] [id number] [address] [place] [address], [place] [address] Mar, [facility] [address] [id number] [address] [place] [address], [place] [address] Mar, [facility] [address] [id number] [address] [place] [address], [place] [address] Mar, [facility] [address] [id number] [address] [place] [address], [place] [address] Mar, [facility] [address] [id number] [address] [place] [address], [place] [address] Mar, [facility] [address] [id number] [address] [place] [address], [place] [address] Mar, [facility] [address] [id number] [address] [place] [address], [place] [address] Mar, [facility] [address] [id number] [address] [place] [address], [place] [address] Mar, [facility] [address] [id number] [address] [place] [address], [place] [address] Mar, [facility] [address] [id number] [address] [place] [address], [place] [address] Mar, [facility] [address] [id number] [address] [place] [address], [place] [address] Mar, [facility] [address] [id number] [address] [place] [address], [place] [address] Mar, [facility] [address] [id number] [address] [place] [address], [place] [address] Nov, [facility] [address] [id number] [address] [place] [address], [place] [address] Nov, [facility] [address] [id number] [address] [place] [address], [place] [address] Sep, [facility] [address] [id number] [address] [place] [address], [place] [address] August, [facility] [address] [id number] [address] [place] [id number] August, [facility] [address] [facility] [id number] [address] [place] [phone] August, [facility] [address] [facility] [id number] [address] [place] [id number] August, [facility] [address] [facility] [id number] [address] [place] [id number] August, [facility] [address] [facility] [id number] [address] [place] [phone] Jul, IMMUNIZATIONS No Known Immunizations SOCIAL HISTORY Never Assessed REASON FOR VISIT PLAN OF CARE VITAL SIGNS Height 64 in 2014-05-22 Weight 273.5 lbs 2014-05-22 Temperature 96.4 degrees Fahrenheit 2014-05-22 Heart Rate 90 bpm 2014-05-22 Respiratory Rate 20 2014-05-22 Blood pressure systolic 122 mmHg 2014-05-22 Blood pressure diastolic 82 mmHg 2014-05-22 MEDICATIONS No Known Medications RESULTS No Results PROCEDURES Procedure Date Ordered Result Body Site GLYCATED HEMOGLOBIN TEST May 22, 2014 INSTRUCTIONS MEDICATIONS ADMINISTERED No Known Medications MEDICAL [...] History surgeries Hospitalization History Abses removed from [facility] May Hospitalization History miscarriage--over night stay 02/2017
--- OUTSIDE RECORDS SUMMARY | 2019-10-07 12:25 | XMS REPORT ---
Author Author Dano HASSAN Organization [facility] Address [address] [place] [address] Care Team Providers Care Physician Industrial Name Role Phone RAVEN HASSAN Unavailable PROBLEMS Type Condition ICD9-CM Code [id number] Code Onset Dates Condition S tatus SNOMED Code Problem Anxiety disorder, unspecified F41.9 Active 804137196 Problem Cannabis use disorder, mild, abuse F12.10 Active 50131971 Problem BMI 45.0-49.9, adult Z68.42 Active 531806089 Problem Ganglion of joint M67.40 Active 78 408685 Problem Tobacco use Z72.0 Active 24892511 0 Problem Anxiety F41.9 Active 83119033 Problem Type 2 diabetes mellitus E11.9 Activ e 39067591 Problem Fibrocystic breast, right N60.11 Acti ve 12456933 Problem Hypercholesteremia E78.0 Active 1 1165964 Problem Binge eating disorder F50.81 Active 357521052 Problem Fibrocystic breast, left N60.12 Activ e 80506856 Problem Hypertriglyceridemia E78.1 Active 118766044 Problem Chest pain, unspecified R07.9 Active 81245692 Problem Surveillance of contraceptive injection Z30.42 Active 709704415 Problem Abdominal pain, left upper quadrant R10.12 Active 602378503 Problem Hypothyroid E03.9 Active 48655065 Problem 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 Active 39352003 ALLERGIES No Information ENCOUNTERS Encounter Location Date Diagnosis [facility] [address] [id number] [address] [place] [address] Jul, 26 weeks gestation of pregna ncy Z3A.26 ; Type 2 diabetes mellitus E11.9 and Hypothyroid E03.9 [facility] [address] [facility] [id number] [address] [place] [address] Jul, [facility] [address] [facility] [id number] [address] [place] [address] Jun, Type 2 diabetes mellitus E11 .9 [facility] [address] [facility] [id number] [address] [place] [address] May, [facility] [address] [facility] [id number] [address] [place] [address] May, [facility] [address] [id number] [address] [place] [address] May, Type 2 diabetes mellitus E11 .9 [facility] [address] [facility] [id number] [address] [place] [address] May, [facility] [address] [facility] [id number] [address] [place] [address] Jul, Type 2 diabetes mellitus E11 .9 [facility] [address] [place] [id number] [address] [place] [address] Jun, Type 2 diabetes mellitus E11 .9 ; Onychomycosis B35.1 and Morbid obesity E66.01 [facility] [address] [id number] [address] [place] [address] 18 May, 2018 Type 2 diabetes mellitus E11 .9 ; Hypothyroid E03.9 ; Tobacco use Z72.0 and Vaginal yeast infection B37.3 [facility] [address] [place] [address] 11 May, 2018 BMI 45.0-49.9, adult Z68.42 [facility] [address] [place] [address] 11 May, 2018 BMI 45.0-49.9, adult Z68.42 [facility] [address] [address] [id number] [address] [place] [address] 07 May, 2018 BMI 45.0-49.9, adult Z68.42 [facility] [address] [place] [address] Apr, BMI 45.0-49.9, adult Z68.42 [place] [address] [address] Mar, [place] [address] [address] Mar, BMI 45.0-49.9, adult Z68.42 [place] [address] [address] Feb, [place] [address] [address] Feb, [place] [address] [address] Feb, BMI 45.0-49.9, adult Z68.42 [place] [address] [address] Jan, BMI 45.0-49.9, adult Z68.42 [place] [address] [address] Jan, [place] [address] [address] Dec, History of miscarriage Z87.5 9 ; Type 2 diabetes mellitus E11.9 ; Hyperglycemia R73.9 ; Yeast vaginitis B37.3 ; BMI 45.0-49.9, adult Z68.42 and Binge eating disorder F50.81 [place] [address] [address] 17 Dec, 2017 BMI 45.0-49.9, adult Z68.42 ; Hypothyroid E03.9 and Type 2 diabetes mellitus E11.9 [place] [address] [address] 07 Dec, 2017 Onychomycosis B35.1 and Type 2 diabetes mellitus with diabetic neuropathy, unspecified whether halfway insulin use E11.40 [place] [address] [address] Oct, Hypertriglyceridemia E78.1 [facility] [id number] [address] [place] [address] Oct, Type 2 diabetes mellitus E11 .9 ; Hypercholesteremia E78.0 and Hypothyroid E03.9 [facility] [address] [place] [address] Sep, BMI 45.0-49.9, adult Z68.42 [facility] [address] [address] 12 Sep, 2017 Type 2 diabetes mellitus E11 .9 [facility] [address] [address] Sep, [facility] [address] [address] Sep, Type 2 diabetes mellitus E11 .9 [facility] [address] [address] [id number] [address] [place] [address] 04 Sep, 2017 Hypothyroid E03.9 ; Type 2 d iabetes mellitus E11.9 ; Toe pain, left M79.675 and BMI 45.0-49.9, adult Z68.42 [facility] [id number] [place] [address] Jul, [facility] [id number] [address] [place] [address] May, Influenza-like illness R69 a nd BMI 40.0-44.9, adult Z68.41 [facility] [id number] [address] [place] [address] May, Binge eating disorder F50.81 [facility] [id number] [address] [place] [address] Apr, [facility] [id number] [address] [place] [id number] 11 Sebastian, 2018 Binge eating disorder F50.81 [facility] [address] [facility] [id number] [address] [place] [address] Mar, Binge eating disorder F50.81 [facility] [address] [facility] [id number] [address] [place] [address] Feb, [place] [address] [id number] [place] [address] Feb, Diabetes E11.9 ; Binge eatin g disorder F50.81 and BMI 40.0-44.9, adult Z68.41 [place] [address] [id number] [place] [address] Jan, Anxiety disorder, unspecifie d F41.9 and Anxiety F41.9 [place] [address] [id number] [place] [address] 04 Jan, 2017 Anxiety disorder, unspecifie d F41.9 ; Cannabis use disorder, mild, abuse F12.10 and Adjustment disorder with mixed disturbance of em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 [place] [address] [place] [id number] [address] [place] [address] August, Hypothyroid E03.9 [place] [address] [id number] [place] [address] August, Type 2 diabetes mellitus E11 .9 [place] [address] [id number] [place] [address] Jun, [place] [address] [id number] [place] [address] Jun, Diabetes E11.9 ; Dysuria R30 .0 and Urinary tract infection without hematuria, site unspecified N39.0 [place] [address] [id number] [place] [address] Jun, [place] [address] [id number] [place] [address] May, [place] [address] [address] Mar, [facility] [address] [facility] [id number] [address] [place] [address] Mar, Pain of left leg M79.605 [facility] [id number] [place] [address] Feb, [place] [address] [address] Feb, Type 2 diabetes mellitus E11 .9 [facility] [address] [facility] [id number] [address] [place] [address] Jan, [place] [address] [address] Jan, [place] [address] [id number] [place] [address] Jan, Discharge of breast N64.52 [place] [address] [id number] [place] [address] 03 Jan, 2016 Menorrhagia N92.0 ; Encounte [...] [facility] [address] [id number] [address] [place] [address] Dec, Diabetes E11.9 ; Right foot pain M79.671 ; Left upper quadrant pain R10.12 ; Pain in right leg M79.604 ; Pain of left leg M79.605 ; Other chest pain R07.89 ; Palpitations R00.2 ; Hypothyroid E03.9 ; Discharge of breast N64.52 and Hyperlipidemia, unspecified hyperlipidemia type E78.5 [facility] [address] [id number] [address] [place] [address] Dec, [facility] [address] [id number] [address] [place] [address] Oct, [facility] [address] [id number] [address] [place] [address] Oct, [facility] [address] [id number] [address] [place] [address] Sep, [facility] [address] [facility] [id number] [address] [place] [address] August, [facility] [address] [id number] [address] [place] [address] August, [facility] [address] [id number] [address] [place] [address] Jul, Hypothyroid E03.9 [facility] [address] [id number] [address] [place] [address] Jun, [facility] [address] [facility] [id number] [address] [place] [address] May, Menorrhagia N92.0 ; Diabetes E11.9 ; Hypothyroid E03.9 and Tobacco abuse Z72.0 [place] [address] [id number] [place] [address] May, [place] [address] [id number] [place] [address] 09 May, 2015 Well woman exam Z01.419 ; BM I 45.0-49.9, adult Z68.42 ; Type 2 diabetes mellitus E11.9 ; Weight loss R63.4 ; Chest pain, unspecified R07.9 ; Hypercholesteremia E78.0 and Routine screening for STI (sexually transmitted infection) Z11.3 [place] [id number] [place] [address] 05 May, 2015 [place] [id number] [place] [address] 04 May, 2015 Well woman exam Z01.419 [...] Fibrocystic breast, left N60.12 and Anxiety F41.9 [place] [id number] [place] [address] May, [place] [address] [id number] [place] [address] Mar, [place] [address] [place] [id number] [address] [place] [address] Feb, [place] [id number] [place] [address] Feb, Diabetes E11.9 ; Eustachian tube dysfunction, right H69.81 and Myalgia M79.1 [facility] [address] [id number] [address] [place] [address] Feb, [facility] [address] [address] Nov, Mastodynia, female 611.71 [facility] [address] [address] Oct, Obesity 278.00 [facility] [address] [address] Oct, Diabetes mellitus without me ntion of complication, type II or unspecified type, not stated as uncontrolled 250.00 ; Anxiety 300.00 and Obesity 278.00 [facility] [address] [address] Sep, [facility] [address] [address] Sep, Diabetes mellitus without me ntion of complication, type II or unspecified type, not stated as uncontrolled 250.00 and Anxiety 300.00 [facility] [address] [address] Sep, [facility] [id number] [place] [address] Jul, [facility] [address] [address] Jul, [facility] [id number] [address] [place] [address] Jun, [facility] [address] [id number] [address] [place] [address] Jun, [facility] [id number] [place] [address] May, [facility] [address] [address] [id number] [address] [place] [address] May, [facility] [address] [id number] [address] [place] [address], [place] [address] Apr, [facility] [address] [id number] [address] [place] [address], [place] [address] Apr, [facility] [address] [id number] [address] [place] [address], [place] [address] Apr, [facility] [address] [id number] [address] [place] [address], [place] [address] Apr, [facility] [address] [id number] [address] [place] [address], [place] [address] Apr, [facility] [address] [id number] [address] [place] [address], [place] [address] Apr, [facility] [address] [id number] [address] [place] [address], [place] [address] Apr, [facility] [address] [id number] [address] [place] [address], [place] [address] Apr, [facility] [address] [id number] [address] [place] [address], [place] [address] Apr, [facility] [address] [id number] [address] [place] [address], [place] [address] Apr, [facility] [address] [id number] [address] [place] [address], [place] [address] Apr, [facility] [address] [id number] [address] [place] [address], [place] [address] Feb, [facility] [address] [id number] [address] [place] [address], [place] [address] Feb, [facility] [address] [id number] [address] [place] [address], [place] [address] Dec, [facility] [address] [id number] [address] [place] [address], [place] [address] Dec, [facility] [address] [id number] [address] [place] [address], [place] [address] 04 Dec, 2013 [facility] [address] [id number] [address] [place] [address], [place] [address] 04 Dec, 2013 [facility] [address] [id number] [address] [place] [address], [place] [address] Dec, [facility] [address] [id number] [address] [place] [address], [place] [address] Dec, [facility] [address] [id number] [address] [place] [address], [place] [address] Oct, [facility] [address] [id number] [address] [place] [address], [place] [address] Oct, [facility] [address] [id number] [address] [place] [address], [place] [address] Sep, [facility] [address] [id number] [address] [place] [address], [place] [address] Sep, [facility] [address] [id number] [address] [place] [address], [place] [address] Sep, [facility] [address] [id number] [address] [place] [address], [place] [address] Sep, [facility] [address] [id number] [address] [place] [address], [place] [address] Sep, [facility] [address] [id number] [address] [place] [address], [place] [address] Sep, [facility] [address] [id number] [address] [place] [address], [place] [address] Sep, [facility] [address] [id number] [address] [place] [address], [place] [address] Sep, [facility] [address] [id number] [address] [place] [address], [place] [address] August, [facility] [address] [id number] [address] [place] [address], [place] [address] August, [facility] [address] [id number] [address] [place] [address], [place] [address] August, [facility] [address] [id number] [address] [place] [address], [place] [address] August, [facility] [address] [id number] [address] [place] [address], [place] [address] August, [facility] [address] [id number] [address] [place] [address], [place] [address] August, [facility] [address] [id number] [address] [place] [address], [place] [address] Jul, [facility] [address] [id number] [address] [place] [address], [place] [address] Jul, [facility] [address] [id number] [address] [place] [address], [place] [address] Jun, [facility] [address] [id number] [address] [place] [address], [place] [address] Jun, [facility] [address] [id number] [address] [place] [address], [place] [address] May, [facility] [address] [id number] [address] [place] [address], [place] [address] Apr, [facility] [address] [id number] [address] [place] [address], [place] [address] Apr, [facility] [address] [id number] [address] [place] [address], [place] [address] Apr, [facility] [address] [id number] [address] [place] [address], [place] [address] Apr, [facility] [address] [id number] [address] [place] [address], [place] [address] Apr, [facility] [address] [id number] [address] [place] [address], [place] [address] Apr, [facility] [address] [id number] [address] [place] [address], [place] [address] Mar, [facility] [address] [id number] [address] [place] [address], [place] [address] Mar, [facility] [address] [id number] [address] [place] [address], [place] [address] Mar, [facility] [address] [id number] [address] [place] [address], [place] [address] Mar, [facility] [address] [id number] [address] [place] [address], [place] [address] Mar, [facility] [address] [id number] [address] [place] [address], [place] [address] Mar, [facility] [address] [id number] [address] [place] [address], [place] [address] Mar, [facility] [address] [id number] [address] [place] [address], [place] [address] Mar, [facility] [address] [id number] [address] [place] [address], [place] [address] Mar, [facility] [address] [id number] [address] [place] [address], [place] [address] Mar, [facility] [address] [id number] [address] [place] [address], [place] [address] Mar, [facility] [address] [id number] [address] [place] [address], [place] [address] Mar, [facility] [address] [id number] [address] [place] [address], [place] [address] Nov, [facility] [address] [id number] [address] [place] [address], [place] [address] Nov, [facility] [address] [id number] [address] [place] [address], [place] [address] Sep, [facility] [address] [id number] [address] [place] [address], [place] [address] August, [facility] [address] [id number] [address] [place] [id number] August, [facility] [address] [facility] [id number] [address] [place] [id number] August, [facility] [address] [facility] [id number] [address] [place] [id number] August, [facility] [address] [facility] [id number] [address] [place] [id number] August, [facility] [address] [facility] [id number] [address] [place] [id number] Jul, IMMUNIZATIONS No Known Immunizations SOCIAL HISTORY [...] History surgeries Hospitalization History Abses removed from [facility] May Hospitalization History miscarriage--over night stay 02/2017
--- OUTSIDE RECORDS SUMMARY | 2019-10-07 12:26 | XMS REPORT ---
Author Author Dano ROSEN [facility] Address [address] [place] [address] Care Team Providers Care Site Head Name Role Phone DAISY ROSEN Unavailable PROBLEMS Type Condition ICD9-CM Code [id number] Code Onset Dates Condition S tatus SNOMED Code Problem Anxiety disorder, unspecified F41.9 Active 734705144 Problem Cannabis use disorder, mild, abuse F12.10 Active 03106206 Problem BMI 45.0-49.9, adult Z68.42 Active 563759315 Problem Ganglion of joint M67.40 Active 78 819610 Problem Tobacco use Z72.0 Active 75085037 0 Problem Anxiety F41.9 Active 72236207 Problem Type 2 diabetes mellitus E11.9 Activ e 49303932 Problem Fibrocystic breast, right N60.11 Acti ve 76157348 Problem Hypercholesteremia E78.0 Active 1 3272226 Problem Binge eating disorder F50.81 Active 960965622 Problem Fibrocystic breast, left N60.12 Activ e 28018354 Problem Hypertriglyceridemia E78.1 Active 163636827 Problem Chest pain, unspecified R07.9 Active 73339203 Problem Surveillance of contraceptive injection Z30.42 Active 997899027 Problem Abdominal pain, left upper quadrant R10.12 Active 111552725 Problem Hypothyroid E03.9 Active 08788910 Problem 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 Active 27330186 ALLERGIES Substance Reaction Event Type Date Status Victoza Unknown Drug Allergy Jun, Active Levemir hives Drug Allergy Jun, Active Lantus hager Drug Allergy Jun, Active ENCOUNTERS Encounter Location Date Diagnosis [facility] [address] [id number] [place] [address] Jul, [facility] [address] [id number] [place] [address] May, [place] [address] [address] May, [place] [address] [address] May, Type 2 diabetes mellitus E11.9 [place] [address] [address] May, [place] [address] [address] Jul, Type 2 diabetes mellitus E11.9 [place] [address] [address] Jun, Type 2 diabetes mellitus E11.9 ; Onychom ycosis B35.1 and Morbid obesity E66.01 [place] [address] [address] May, Type 2 diabetes mellitus E11.9 ; Hypothy roid E03.9 ; Tobacco use Z72.0 and Vaginal yeast infection B37.3 [place] [address] [address] May, BMI 45.0-49.9, adult Z68.42 [place] [address] [address] 11 May, 2018 BMI 45.0-49.9, adult Z68.42 [place] [address] [address] 07 May, 2018 BMI 45.0-49.9, adult Z68.42 [place] [address] [address] Apr, BMI 45.0-49.9, adult Z68.42 [place] [address] [address] Mar, [place] [address] [address] Mar, BMI 45.0-49.9, adult Z68.42 [place] [address] [address] Feb, [place] [address] [address] Feb, [place] [address] [address] Feb, BMI 45.0-49.9, adult Z68.42 [place] [address] [address] Jan, BMI 45.0-49.9, adult Z68.42 [place] [address] [address] Jan, [place] [address] [address] Dec, History of miscarriage Z87.59 ; Type 2 d iabetes mellitus E11.9 ; Hyperglycemia R73.9 ; Yeast vaginitis B37.3 ; BMI 45.0-49.9, adult Z68.42 and Binge eating disorder F50.[address] [address] 17 Dec, 2017 BMI 45.0-49.9, adult Z68.42 ; Hypothyroi d E03.9 and Type 2 diabetes mellitus E11.[address] [address] Dec, Onychomycosis B35.1 and Type 2 diabetes mellitus with diabetic neuropathy, 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 [place] [address] [address] Oct, Hypertriglyceridemia E78.[address] [address] Oct, Type 2 diabetes mellitus E11.9 ; Hyperch olesteremia E78.0 and Hypothyroid E03.[address] [address] Sep, BMI 45.0-49.9, adult Z68.42 [facility] [address] [address] Sep, Type 2 diabetes mellitus E11.9 [facility] [address] [place] [id number] [place] [address] Sep, [facility] [address] [address] Sep, Type 2 diabetes mellitus E11.9 [place] [address] [address] Sep, Hypothyroid E03.9 ; Type 2 diabetes frances itus E11.9 ; Toe pain, left M79.675 and BMI 45.0-49.9, adult Z68.42 [facility] [address] [place] [id number] [place] [address] Jul, [facility] [address] [facility] [id number] [place] [address] May, Influenza-like illness R69 a nd BMI 40.0-44.9, adult Z68.41 [place] [address] [address] 08 May, 2017 Binge eating disorder F50.81 [place] [address] [place] [id number] [place] [address] Apr, [place] [address] [address] Apr, Binge eating disorder F50.81 [place] [address] [address] Mar, Binge eating disorder F50.81 [place] [address] [address] Feb, [facility] [address] [address] Feb, Diabetes E11.9 ; Binge eating disorder F 50.81 and BMI 40.0-44.9, adult Z68.41 [place] [address] [address] Jan, Anxiety disorder, unspecified F41.9 and Anxiety F41.9 [place] [address] [address] Jan, Anxiety disorder, unspecified F41.9 ; Ca nnabis use disorder, mild, abuse F12.10 and Adjustment disorder with mixed disturbance of em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 [place] [address] [address] August, Hypothyroid E03.9 [place] [address] [address] August, Type 2 diabetes mellitus E11.9 [place] [address] [address] Jun, [place] [address] [address] Jun, Diabetes E11.9 ; Dysuria R30.0 and Urina ry tract infection without hematuria, site unspecified N39.0 [place] [address] [address] Jun, [place] [address] [address] May, [place] [address] [address] Mar, [place] [address] [address] Mar, Pain of left leg M79.605 [place] [address] [address] Feb, [place] [address] [address] Feb, Type 2 diabetes mellitus E11.9 [place] [address] [address] Jan, [facility] [address] [address] Jan, [facility] [address] [address] Jan, Discharge of breast N64.52 [place] [address] [address] Jan, Menorrhagia N92.0 ; Encounter for control Z30.9 ; Diabetes mellitus without [...] Fibrocystic breast, left N60.12 and Anxiety F41.9 [place] [address] [address] Dec, Diabetes E11.9 ; Right foot pain M79.671 ; Left upper quadrant pain R10.12 ; Pain in right leg M79.604 ; Pain of left leg M79.605 ; Other chest pain R07.89 ; Palpitations R00.2 ; Hypothyroid E03.9 ; Discharge of breast N64.52 and Hyperlipidemia, unspecified hyperlipidemia type E78.5 [place] [address] [address] Dec, [place] [address] [address] Oct, [place] [address] [address] Oct, [place] [address] [address] Sep, [place] [address] [address] August, [place] [address] [address] August, [place] [address] [address] Jul, Hypothyroid E03.9 [place] [address] [address] Jun, [place] [address] [address] May, Menorrhagia N92.0 ; Diabetes E11.9 ; Hyp othyroid E03.9 and Tobacco abuse Z72.0 [place] [address] [address] May, [place] [address] [address] May, Well woman exam Z01.419 ; BMI 45.0-49.9, adult Z68.42 ; Type 2 diabetes mellitus E11.9 ; Weight loss R63.4 ; Chest pain, unspecified R07.9 ; Hypercholesteremia E78.0 and Routine screening for STI (sexually transmitted infection) Z11.3 [place] [address] [address] May, [address] [address] 04 May, 2015 Well woman exam Z01.419 ; Encounter for screening for malignant neoplasm [...] Fibrocystic breast, left N60.12 and Anxiety F41.[address] [address] May, [address] [address] Mar, [address] [address] Feb, [address] [address] Feb, Diabetes E11.9 ; Eustachian tube dysfunc tion, right H69.81 and Myalgia M79.[address] [address] Feb, [address] [address] Nov, Mastodynia, female 611.[address] [address] Oct, Obesity 278.[address] [address] Oct, Diabetes mellitus without mention of com plication, type II or unspecified type, not stated as uncontrolled 250.00 ; Anxiety 300.00 and Obesity 278.[address] [place] [address] Sep, [facility] [address] [place] [id number] [place] [address] Sep, Diabetes mellitus without mention of com plication, type II or unspecified type, not stated as uncontrolled 250.00 and Anxiety 300.00 [facility] [address] [place] [id number] [place] [address] Sep, [facility] [address] [place] [id number] [place] [address] Jul, [facility] [address] [place] [id number] [place] [address] Jul, [facility] [address] [place] [id number] [place] [address] Jun, [facility] [address] [place] [id number] [place] [address] Jun, [facility] [address] [place] [id number] [place] [address] May, [facility] [address] [place] [id number] [place] [address] May, [facility] [address] [place] [address] [id number] [place] [address] Apr, [facility] [address] [place] [address] [id number] [place] [address] Apr, [facility] [address] [place] [id number] [place] [address] Apr, [facility] [address] [place] [id number] [place] [address] Apr, [facility] [address] [place] [id number] [place] [address] Apr, [facility] [address] [place] [id number] [place] [address] Apr, [facility] [address] [place] [address] [id number] [place] [address] Apr, [facility] [place] [facility] [address] [id number] [place] [address] Apr, [facility] [place] [facility] [address] [id number] [place] [address] Apr, [facility] [place] [facility] [address] [id number] [place] [address] Apr, [facility] [place] [facility] [address] [id number] [place] [address] Apr, [facility] [place] [facility] [address] [id number] [place] [address] Feb, [facility] [place] [facility] [address] [id number] [place] [address] Feb, [facility] [place] [facility] [address] [id number] [place] [address] Dec, [facility] [place] [facility] [address] [id number] [place] [address] Dec, [facility] [place] [facility] [address] [id number] [place] [address] Dec, 2013 [facility] [place] [facility] [address] [id number] [place] [address] Dec, 2013 [facility] [place] [facility] [address] [id number] [place] [address] Dec, [facility] [place] [facility] [address] [id number] [place] [address] Dec, 2013 [facility] [place] [facility] [address] [id number] [place] [address] Oct, [facility] [place] [facility] [address] [id number] [place] [address] Oct, [facility] [place] [facility] [address] [id number] [place] [address] Sep, [facility] [place] [facility] [address] [id number] [place] [address] Sep, [facility] [place] [facility] [address] [id number] [place] [address] Sep, [facility] [place] [facility] [address] [facility] [id number] [facility] [place] [address] Sep, [facility] [place] [facility] [address] [facility] [id number] [facility] [place] [address] Sep, [facility] [place] [facility] [address] [facility] [id number] [place] [address] Sep, [facility] [place] [facility] [address] [id number] [facility] [place] [address] Sep, [facility] [place] [facility] [address] [facility] [id number] [facility] [place] [address] Sep, [facility] [place] [facility] [address] [id number] [facility] [place] [address] August, [facility] [place] [facility] [address] [id number] [place] [address] August, [facility] [place] [facility] [address] [id number] [facility] [place] [address] August, [facility] [place] [facility] [address] [facility] [id number] [place] [address] August, [facility] [place] [facility] [address] [id number] [place] [address] August, [facility] [place] [facility] [address] [id number] [place] [address] August, [facility] [place] [facility] [address] [id number] [place] [address] Jul, [facility] [place] [facility] [address] [facility] [id number] [place] [address] Jul, [facility] [place] [facility] [address] [facility] [id number] [place] [address] Jun, [facility] [place] [facility] [address] [facility] [id number] [place] [address] Jun, [facility] [place] [facility] [address] [id number] [place] [address] May, [facility] [place] [facility] [address] [id number] [place] [address] 28 Apr, 2012 [facility] [place] [facility] [address] [id number] [place] [address] Apr, [facility] [place] [facility] [address] [id number] [place] [address] Apr, [facility] [place] [facility] [address] [id number] [place] [address] Apr, [facility] [place] [facility] [address] [id number] [place] [address] Apr, [facility] [place] [facility] [address] [id number] [place] [address] Apr, [facility] [place] [facility] [address] [id number] [place] [address] Mar, [facility] [place] [facility] [address] [id number] [place] [address] Mar, [facility] [place] [facility] [address] [id number] [place] [address] Mar, [facility] [place] [facility] [address] [id number] [place] [address] Mar, [facility] [place] [facility] [address] [id number] [place] [address] Mar, [facility] [place] [facility] [address] [id number] [place] [address] Mar, [facility] [place] [facility] [address] [id number] [place] [address] Mar, [facility] [place] [facility] [address] [id number] [place] [address] Mar, [facility] [place] [facility] [address] [id number] [place] [address] Mar, [facility] [place] [facility] [address] [id number] [place] [address] 07 Mar, 2012 [facility] [place] [facility] [address] [id number] [place] [address] Mar, [facility] [id number] [place] [address] Mar, [facility] [id number] [place] [address] Nov, [facility] [id number] [place] [address] Nov, [facility] [address] [address] Sep, [facility] [address] [address] August, [facility] [address] [address] August, [facility] [address] [address] August, [facility] [address] [address] August, [facility] [address] [address] August, [facility] [id number] [place] [address] Jul, IMMUNIZATIONS No Known Immunizations SOCIAL HISTORY Never Assessed REASON FOR VISIT ADHD Pt in for follow up KENZIE Yeboah PLAN OF CARE Activity Details Follow Up 3 Months Reason:DM VITAL SIGNS Height 64 in 2018-07-19 Weight 262.3 lbs 2018-07-19 Temperature 98.2 degrees Fahrenheit 2018-07-19 Heart Rate 104 bpm 2018-07-19 Respiratory Rate 18 2018-07-19 Oximetry 98 % 2018-07-19 BMI 45.02 kg/m2 2018-07-19 Blood pressure systolic 116 mmHg 2018-07-19 Blood pressure diastolic 72 mmHg 2018-07-19 MEDICATIONS Medication Instructions Dosage Frequency Start Date End Date Duration S tatus Vonda Micro Pen [place] 32G X 4 MM as directed for use with Lantus Pen injector 90 days Active Victoza 18 MG/3ML Subcutaneous Once a day inject 1.8 MG 24h 90 days Not-Taking Ozempic 1 MG/DOSE Subcutaneous once weekly 1 mg 25 Mar, 2019 30 days Active Diflucan 150 MG Orally one time and may repeat in 3 days of needed 1 tablet May, 2 doses Not-Taking Excedrin Migraine 250-250-65 MG Orally every 6 hrs 2 tablets as needed 6 h Active Levothyroxine Sodium 75 MCG Orally Once a day 1 tablet 24h 90 days Active Lumigan Not-Taking MetFORMIN HCl ER 500 MG Orally 2 times a day 2 tablets 12h 90 days Active Chantix Starting Month Jesus 0.5 MG X 11 & 1 MG X 42 Orally 2 times a day 0.5 daily X 3 days, 0.5mg bid X 4 days. then 1 tab bid 12h May, 30 days Active GlyBURIDE 5 MG Orally Once a day 1 tablet with breakf ast or the first main meal of the day 24h 90 days Active Terbinafine HCl 250 MG Orally Once a day 1 tablet 24h Jun, 90 days Active TRUEtest Test - In Vitro 3 times a day test blood sugar 8h 90 days Active Colcord 3 1000 MG Orally Once a day 3 capsules 24h Oct, Active RESULTS Name Result Date Reference Range A1C (IN HOUSE) 2018-07-19 A1C IN HOUSE 10.4 4.3 - 5.6 % Previous A1c 11.9 Lot [id number] Exp date 01/2020 PROCEDURES Procedure Date Ordered Result Body Site GLYCATED HEMOGLOBIN TEST July 19, 2018 INSTRUCTIONS MEDICATIONS ADMINISTERED No Known Medications MEDICAL [...] History surgeries Hospitalization History Abses removed from gro May Hospitalization History miscarriage--over night stay 02/2017
--- OUTSIDE RECORDS SUMMARY | 2019-10-07 12:26 | XMS REPORT ---
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 Name Role Phone LUIS Hidalgo Unavailable PROBLEMS Type Condition ICD9-CM Code [id number] Code Onset Dates Condition S tatus SNOMED Code Problem Anxiety disorder, unspecified F41.9 Active 709858819 Problem Cannabis use disorder, mild, abuse F12.10 Active 55915252 Problem BMI 45.0-49.9, adult Z68.42 Active 805407321 Problem Ganglion of joint M67.40 Active 78 216154 Problem Tobacco use Z72.0 Active 54838251 0 Problem Anxiety F41.9 Active 54941819 Problem Type 2 diabetes mellitus E11.9 Activ e 70188234 Problem Fibrocystic breast, right N60.11 Acti ve 18045772 Problem Hypercholesteremia E78.0 Active 1 8873854 Problem Binge eating disorder F50.81 Active 933104074 Problem Fibrocystic breast, left N60.12 Activ e 51369409 Problem Hypertriglyceridemia E78.1 Active 524351178 Problem Chest pain, unspecified R07.9 Active 83311991 Problem Surveillance of contraceptive injection Z30.42 Active 169516171 Problem Abdominal pain, left upper quadrant R10.12 Active 395541375 Problem Hypothyroid E03.9 Active 08930805 Problem 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 Active 04307883 ALLERGIES No Information ENCOUNTERS Encounter Location Date Diagnosis [facility] [address] [id number] [place] [address] Jul, Type 2 diabetes mellitus E11.9 [facility] [address] [id number] [place] [address] Jun, Type 2 diabetes mellitus E11.9 ; Onychom ycosis B35.1 and Morbid obesity E66.01 [place] [address] [address] 18 May, 2018 Type 2 diabetes mellitus E11.9 ; Hypothy roid E03.9 ; Tobacco use Z72.0 and Vaginal yeast infection B37.3 [place] [address] [address] May, BMI 45.0-49.9, adult Z68.42 [place] [address] [address] 11 May, 2018 BMI 45.0-49.9, adult Z68.42 [place] [address] [address] May, BMI 45.0-49.9, adult Z68.42 [place] [address] [address] Apr, BMI 45.0-49.9, adult Z68.42 [place] [address] [address] Mar, [place] [address] [address] Mar, BMI 45.0-49.9, adult Z68.42 [place] [address] [address] Feb, [place] [address] [address] Feb, [place] [address] [address] Feb, BMI 45.0-49.9, adult Z68.42 [place] [address] [address] Jan, BMI 45.0-49.9, adult Z68.42 [place] [address] [address] Jan, [place] [address] [address] 24 Dec, 2017 History of miscarriage Z87.59 ; Type 2 d iabetes mellitus E11.9 ; Hyperglycemia R73.9 ; Yeast vaginitis B37.3 ; BMI 45.0-49.9, adult Z68.42 and Binge eating disorder F50.[address] [address] 17 Dec, 2017 BMI 45.0-49.9, adult Z68.42 ; Hypothyroi d E03.9 and Type 2 diabetes mellitus E11.[address] [address] 07 Dec, 2017 Onychomycosis B35.1 and Type 2 diabetes mellitus with diabetic neuropathy, unspecified whether chcf insulin use E11.[address] [address] Oct, Hypertriglyceridemia E78.[address] [address] 16 Oct, 2017 Type 2 diabetes mellitus E11.9 ; Hyperch olesteremia E78.0 and Hypothyroid E03.[address] [address] Sep, BMI 45.0-49.9, adult Z68.[address] [address] Sep, Type 2 diabetes mellitus E11.9 [place] [address] [address] Sep, [address] [address] Sep, Type 2 diabetes mellitus E11.[address] [address] Sep, Hypothyroid E03.9 ; Type 2 diabetes frances itus E11.9 ; Toe pain, left M79.675 and BMI 45.0-49.9, adult Z68.42 [place] [address] [address] Jul, [facility] [address] [facility] [id number] [place] [address] 23 May, 2017 Influenza-like illness R69 a nd BMI 40.0-44.9, adult Z68.41 [place] [address] [address] 08 May, 2017 Binge eating disorder F50.81 [place] [address] [address] Apr, [place] [address] [address] Apr, Binge eating disorder F50.81 [place] [address] [address] Mar, Binge eating disorder F50.81 [place] [address] [address] Feb, [place] [address] [address] Feb, Diabetes E11.9 ; Binge eating disorder F 50.81 and BMI 40.0-44.9, adult Z68.41 [place] [address] [address] Jan, Anxiety disorder, unspecified F41.9 and Anxiety F41.9 [place] [address] [address] 04 Jan, 2017 Anxiety disorder, unspecified F41.9 ; Ca nnabis use disorder, mild, abuse F12.10 and Adjustment disorder with mixed disturbance of em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 [place] [address] [address] August, Hypothyroid E03.9 [place] [address] [address] August, Type 2 diabetes mellitus E11.9 [place] [address] [address] Jun, [place] [address] [address] Jun, Diabetes E11.9 ; Dysuria R30.0 and Urina ry tract infection without hematuria, site unspecified N39.0 [place] [address] [address] Jun, [place] [address] [address] May, [place] [address] [address] Mar, [place] [address] [address] Mar, Pain of left leg M79.605 [place] [address] [address] Feb, [place] [address] [address] Feb, Type 2 diabetes mellitus E11.9 [place] [address] [address] Jan, [place] [address] [address] Jan, [place] [address] [address] Jan, Discharge of breast N64.52 [place] [address] [address] Jan, Menorrhagia N92.0 ; Encounter for control [...] Fibrocystic breast, left N60.12 and Anxiety F41.9 [place] [address] [address] Dec, Diabetes E11.9 ; Right foot pain M79.671 ; Left upper quadrant pain R10.12 ; Pain in right leg M79.604 ; Pain of left leg M79.605 ; Other chest pain R07.89 ; Palpitations R00.2 ; Hypothyroid E03.9 ; Discharge of breast N64.52 and Hyperlipidemia, unspecified hyperlipidemia type E78.5 [place] [address] [address] Dec, [place] [address] [address] Oct, [place] [address] [address] Oct, [place] [address] [address] Sep, [place] [address] [address] August, [place] [address] [address] August, [place] [address] [address] Jul, Hypothyroid E03.9 [place] [address] [address] Jun, [place] [address] [address] May, Menorrhagia N92.0 ; Diabetes E11.9 ; Hyp othyroid E03.9 and Tobacco abuse Z72.0 [place] [address] [address] May, [place] [address] [address] May, Well woman exam Z01.419 ; BMI 45.0-49.9, adult Z68.42 ; Type 2 diabetes mellitus E11.9 ; Weight loss R63.4 ; Chest pain, unspecified R07.9 ; Hypercholesteremia E78.0 and Routine screening for STI (sexually transmitted infection) Z11.3 [place] [address] [address] 05 May, 2015 [place] [address] [address] 04 May, 2015 Well woman exam Z01.419 [...] Fibrocystic breast, left N60.12 and Anxiety F41.9 [place] [address] [address] May, [facility] [address] [address] Mar, [facility] [address] [address] Feb, [facility] [address] [address] Feb, Diabetes E11.9 ; Eustachian tube dysfunc tion, right H69.81 and Myalgia M79.1 [facility] [address] [address] Feb, [facility] [address] [address] Nov, Mastodynia, female 611.71 [facility] [address] [address] Oct, Obesity 278.00 [facility] [address] [address] Oct, Diabetes mellitus without mention of com plication, type II or unspecified type, not stated as uncontrolled 250.00 ; Anxiety 300.00 and Obesity 278.00 [facility] [address] [address] Sep, [facility] [address] [address] Sep, Diabetes mellitus without mention of com plication, type II or unspecified type, not stated as uncontrolled 250.00 and Anxiety 300.00 [facility] [address] [address] Sep, [facility] [address] [address] Jul, [facility] [address] [address] Jul, [facility] [address] [address] Jun, [facility] [place] [facility] [address] [id number] [place] [address] Jun, [facility] [place] [facility] [address] [id number] [place] [address] May, [facility] [place] [facility] [address] [id number] [place] [address] May, [facility] [place] [facility] [address] [id number] [place] [address] Apr, [facility] [place] [facility] [address] [id number] [place] [address] Apr, [facility] [place] [facility] [address] [id number] [place] [address] Apr, [facility] [place] [facility] [address] [id number] [place] [address] Apr, [facility] [place] [facility] [address] [id number] [place] [address] Apr, [facility] [place] [facility] [address] [id number] [place] [address] Apr, [facility] [place] [facility] [address] [id number] [place] [address] Apr, [facility] [place] [facility] [address] [id number] [place] [address] Apr, [facility] [place] [facility] [address] [id number] [place] [address] Apr, [facility] [place] [facility] [address] [id number] [place] [address] Apr, [facility] [place] [facility] [address] [id number] [place] [address] Apr, [facility] [place] [facility] [address] [id number] [place] [address] Feb, [facility] [place] [facility] [address] [id number] [place] [address] Feb, [facility] [place] [facility] [address] [id number] [place] [address] 12 Dec, 2013 [facility] [place] [facility] [address] [facility] [id number] [place] [address] 12 Dec, 2013 [facility] [place] [facility] [address] [facility] [id number] [facility] [address] Dec, 2013 [facility] [place] [facility] [address] [facility] [id number] [place] [address] Dec, 2013 [facility] [place] [facility] [address] [facility] [id number] [place] [address] Dec, 2013 [facility] [place] [facility] [address] [facility] [id number] [place] [address] Dec, 2013 [facility] [place] [facility] [address] [id number] [place] [address] Oct, [facility] [place] [facility] [address] [id number] [place] [address] Oct, [facility] [place] [facility] [address] [id number] [place] [address] Sep, [facility] [place] [facility] [address] [facility] [id number] [place] [address] Sep, [facility] [place] [facility] [address] [id number] [place] [address] Sep, [facility] [place] [facility] [address] [id number] [place] [address] Sep, [facility] [place] [facility] [address] [id number] [place] [address] Sep, [facility] [place] [facility] [address] [facility] [id number] [place] [address] Sep, [facility] [place] [facility] [address] [id number] [place] [address] Sep, [facility] [place] [facility] [address] [id number] [place] [address] Sep, [facility] [place] [facility] [address] [id number] [place] [address] August, [facility] [place] [facility] [address] [id number] [place] [address] August, [facility] [place] [facility] [address] [id number] [place] [address] August, [facility] [place] [facility] [address] [id number] [place] [address] August, [facility] [place] [facility] [address] [id number] [place] [address] August, [facility] [place] [facility] [address] [id number] [place] [address] August, [facility] [place] [facility] [address] [id number] [place] [address] Jul, [facility] [place] [facility] [address] [id number] [place] [address] Jul, [facility] [place] [facility] [address] [id number] [place] [address] Jun, [facility] [place] [facility] [address] [id number] [place] [address] Jun, [facility] [place] [facility] [address] [id number] [place] [address] May, [facility] [place] [facility] [address] [id number] [place] [address] Apr, [facility] [place] [facility] [address] [id number] [place] [address] Apr, [facility] [place] [facility] [address] [id number] [place] [address] Apr, [facility] [place] [facility] [address] [id number] [place] [address] Apr, [facility] [place] [facility] [id number] [place] [address] Apr, [facility] [place] [facility] [address] [id number] [place] [address] Apr, [facility] [place] [facility] [address] [id number] [place] [address] Mar, [facility] [place] [facility] [address] [id number] [place] [address] Mar, [facility] [place] [facility] [address] [id number] [place] [address] Mar, [facility] [place] [facility] [address] [id number] [place] [address] Mar, [facility] [place] [facility] [address] [id number] [place] [address] Mar, [facility] [place] [facility] [address] [id number] [place] [address] Mar, [facility] [place] [facility] [address] [id number] [place] [address] Mar, [facility] [place] [facility] [address] [id number] [place] [address] Mar, [facility] [place] [facility] [address] [id number] [place] [address] Mar, [facility] [place] [facility] [address] [id number] [place] [address] Mar, [facility] [place] [facility] [address] [id number] [place] [address] Mar, [facility] [place] [facility] [address] [id number] [place] [address] Mar, [facility] [place] [facility] [address] [id number] [place] [address] Nov, [facility] [place] [facility] [address] [id number] [place] [address] Nov, [facility] [place] [facility] [address] [id number] [place] [address] Sep, [facility] [place] [facility] [address] [id number] [place] [address] August, [facility] [place] [facility] [address] [id number] [place] [address] August, [facility] [place] [facility] [address] [id number] [place] [address] August, [facility] [address] [facility] [id number] [place] [address] August, [facility] [address] [id number] [place] [address] August, [facility] [address] [facility] [id number] [place] [address] Jul, IMMUNIZATIONS No Known Immunizations SOCIAL HISTORY Never Assessed REASON FOR VISIT PLAN OF CARE VITAL SIGNS Height 64 in 2013-08-04 Weight 279.4 lbs 2013-08-04 Temperature 99.4 degrees Fahrenheit 2013-08-04 Heart Rate 82 bpm 2013-08-04 Respiratory Rate 18 2013-08-04 Blood pressure systolic 130 mmHg 2013-08-04 Blood pressure diastolic 78 mmHg 2013-08-04 MEDICATIONS Unknown Medications RESULTS No Results PROCEDURES Procedure Date Ordered Result Body Site URINALYSIS, AUTO, W/O SCOPE August 04, 2013 INSTRUCTIONS MEDICATIONS ADMINISTERED No Known Medications MEDICAL [...]
--- OUTSIDE RECORDS SUMMARY | 2019-10-07 12:26 | XMS REPORT ---
Author Author Dano ROSEN [facility] Address [address] [place] [address] Care Team Providers Care Cannon Crewmember Name Role Phone DAISY ROSEN Unavailable PROBLEMS Type Condition ICD9-CM Code DZY11-QA Code Onset Dates Condition S tatus SNOMED Code Problem Anxiety disorder, unspecified F41.9 Active 276241317 Problem Cannabis use disorder, mild, abuse F12.10 Active 24068327 Problem BMI 45.0-49.9, adult Z68.42 Active 820721367 Problem Ganglion of joint M67.40 Active 78 950658 Problem Tobacco use Z72.0 Active 30212982 0 Problem Anxiety F41.9 Active 23955819 Problem Type 2 diabetes mellitus E11.9 Activ e 29309270 Problem Fibrocystic breast, right N60.11 Acti ve 10262267 Problem Hypercholesteremia E78.0 Active 1 6026896 Problem Binge eating disorder F50.81 Active 305919818 Problem Fibrocystic breast, left N60.12 Activ e 35658385 Problem Hypertriglyceridemia E78.1 Active 154834752 Problem Chest pain, unspecified R07.9 Active 91372265 Problem Surveillance of contraceptive injection Z30.42 Active 197424630 Problem Abdominal pain, left upper quadrant R10.12 Active 285224036 Problem Hypothyroid E03.9 Active 35204023 Problem 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 Active 26166915 ALLERGIES No Information ENCOUNTERS Encounter Location Date Diagnosis [facility] [place] [id number] [place] [address] Jul, Type 2 diabetes mellitus E11.9 [facility] [place] [address] [id number] [place] [address] Jun, Type 2 diabetes mellitus E11.9 ; Onychom ycosis B35.1 and Morbid obesity E66.01 [place] [address] [address] 18 May, 2018 Type 2 diabetes mellitus E11.9 ; Hypothy roid E03.9 ; Tobacco use Z72.0 and Vaginal yeast infection B37.3 [place] [address] [address] May, BMI 45.0-49.9, adult Z68.42 [place] [address] [address] 11 May, 2018 BMI 45.0-49.9, adult Z68.42 [place] [address] [address] May, BMI 45.0-49.9, adult Z68.42 [place] [address] [address] Apr, BMI 45.0-49.9, adult Z68.42 [place] [address] [address] Mar, [place] [address] [address] Mar, BMI 45.0-49.9, adult Z68.42 [place] [address] [address] Feb, [place] [address] [address] Feb, [place] [address] [address] Feb, BMI 45.0-49.9, adult Z68.42 [place] [address] [address] Jan, BMI 45.0-49.9, adult Z68.42 [place] [address] [address] Jan, [place] [address] [address] 24 Dec, 2017 History of miscarriage Z87.59 ; Type 2 d iabetes mellitus E11.9 ; Hyperglycemia R73.9 ; Yeast vaginitis B37.3 ; BMI 45.0-49.9, adult Z68.42 and Binge eating disorder F50.[address] [address] 17 Dec, 2017 BMI 45.0-49.9, adult Z68.42 ; Hypothyroi d E03.9 and Type 2 diabetes mellitus E11.[address] [address] 07 Dec, 2017 Onychomycosis B35.1 and Type 2 diabetes mellitus with diabetic neuropathy, unspecified whether care home insulin use E11.[address] [address] Oct, Hypertriglyceridemia E78.[address] [address] 16 Oct, 2017 Type 2 diabetes mellitus E11.9 ; Hyperch olesteremia E78.0 and Hypothyroid E03.[address] [address] Sep, BMI 45.0-49.9, adult Z68.[address] [address] Sep, Type 2 diabetes mellitus E11.9 [place] [address] [address] Sep, [address] [address] Sep, Type 2 diabetes mellitus E11.[address] [address] Sep, Hypothyroid E03.9 ; Type 2 diabetes frances itus E11.9 ; Toe pain, left M79.675 and BMI 45.0-49.9, adult Z68.42 [place] [address] [address] Jul, [facility] [address] [facility] [id number] [place] [address] 23 May, 2017 Influenza-like illness R69 a nd BMI 40.0-44.9, adult Z68.41 [place] [address] [address] 08 May, 2017 Binge eating disorder F50.81 [place] [address] [address] Apr, [place] [address] [address] Apr, Binge eating disorder F50.81 [place] [address] [address] Mar, Binge eating disorder F50.81 [place] [address] [address] Feb, [place] [address] [address] Feb, Diabetes E11.9 ; Binge eating disorder F 50.81 and BMI 40.0-44.9, adult Z68.41 [place] [address] [address] Jan, Anxiety disorder, unspecified F41.9 and Anxiety F41.9 [place] [address] [address] 04 Jan, 2017 Anxiety disorder, unspecified F41.9 ; Ca nnabis use disorder, mild, abuse F12.10 and Adjustment disorder with mixed disturbance of em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 [place] [address] [address] August, Hypothyroid E03.9 [place] [address] [address] August, Type 2 diabetes mellitus E11.9 [place] [address] [address] Jun, [place] [address] [address] Jun, Diabetes E11.9 ; Dysuria R30.0 and Urina ry tract infection without hematuria, site unspecified N39.0 [place] [address] [address] Jun, [place] [address] [address] May, [place] [address] [address] Mar, [place] [address] [address] Mar, Pain of left leg M79.605 [place] [address] [address] Feb, [place] [address] [address] Feb, Type 2 diabetes mellitus E11.9 [place] [address] [address] Jan, [place] [address] [address] Jan, [place] [address] [address] Jan, Discharge of breast N64.52 [place] [address] [address] Jan, Menorrhagia N92.0 ; Encounter for control [...] Fibrocystic breast, left N60.12 and Anxiety F41.9 [place] [address] [address] Dec, Diabetes E11.9 ; Right foot pain M79.671 ; Left upper quadrant pain R10.12 ; Pain in right leg M79.604 ; Pain of left leg M79.605 ; Other chest pain R07.89 ; Palpitations R00.2 ; Hypothyroid E03.9 ; Discharge of breast N64.52 and Hyperlipidemia, unspecified hyperlipidemia type E78.5 [place] [address] [address] Dec, [place] [address] [address] Oct, [place] [address] [address] Oct, [place] [address] [address] Sep, [place] [address] [address] August, [place] [address] [address] August, [place] [address] [address] Jul, Hypothyroid E03.9 [place] [address] [address] Jun, [place] [address] [address] May, Menorrhagia N92.0 ; Diabetes E11.9 ; Hyp othyroid E03.9 and Tobacco abuse Z72.0 [place] [address] [address] May, [place] [address] [address] May, Well woman exam Z01.419 ; BMI 45.0-49.9, adult Z68.42 ; Type 2 diabetes mellitus E11.9 ; Weight loss R63.4 ; Chest pain, unspecified R07.9 ; Hypercholesteremia E78.0 and Routine screening for STI (sexually transmitted infection) Z11.3 [place] [address] [address] 05 May, 2015 [place] [address] [address] 04 May, 2015 Well woman exam Z01.419 [...] Fibrocystic breast, left N60.12 and Anxiety F41.9 [place] [address] [address] May, [facility] [place] [address] [address] Mar, [facility] [place] [address] [address] Feb, [facility] [place] [address] [address] Feb, Diabetes E11.9 ; Eustachian tube dysfunc tion, right H69.81 and Myalgia M79.1 [facility] [place] [address] [address] Feb, [facility] [place] [address] [address] Nov, Mastodynia, female 611.71 [facility] [place] [address] [address] Oct, Obesity 278.00 [facility] [place] [address] [address] Oct, Diabetes mellitus without mention of com plication, type II or unspecified type, not stated as uncontrolled 250.00 ; Anxiety 300.00 and Obesity 278.00 [facility] [place] [address] [address] Sep, [facility] [place] [address] [address] Sep, Diabetes mellitus without mention of com plication, type II or unspecified type, not stated as uncontrolled 250.00 and Anxiety 300.00 [facility] [place] [address] [address] Sep, [facility] [place] [address] [address] Jul, [facility] [place] [address] [address] Jul, [facility] [place] [address] [address] Jun, [facility] [place] [facility] [address] [id number] [place] [address] Jun, [facility] [place] [facility] [address] [id number] [place] [address] May, [facility] [place] [facility] [address] [id number] [place] [address] May, [facility] [place] [facility] [address] [id number] [place] [address] Apr, [facility] [place] [facility] [address] [id number] [place] [address] Apr, [facility] [place] [facility] [address] [id number] [place] [address] Apr, [facility] [place] [facility] [address] [id number] [place] [address] Apr, [facility] [place] [facility] [address] [id number] [place] [address] Apr, [facility] [place] [facility] [address] [id number] [place] [address] Apr, [facility] [place] [facility] [address] [id number] [place] [address] Apr, [facility] [place] [facility] [address] [id number] [place] [address] Apr, [facility] [place] [facility] [address] [id number] [place] [address] Apr, [facility] [place] [facility] [address] [id number] [place] [address] Apr, [facility] [place] [facility] [address] [id number] [place] [address] Apr, [facility] [place] [facility] [address] [id number] [place] [address] Feb, [facility] [place] [facility] [address] [id number] [place] [address] Feb, [facility] [place] [facility] [address] [id number] [place] [address] 12 Dec, 2013 [facility] [place] [facility] [address] [facility] [id number] [place] [address] 12 Dec, 2013 [facility] [place] [facility] [address] [facility] [id number] [facility] [place] [address] Dec, 2013 [facility] [place] [facility] [address] [facility] [id number] [place] [address] Dec, 2013 [facility] [place] [facility] [address] [facility] [id number] [place] [address] Dec, 2013 [facility] [place] [facility] [address] [facility] [id number] [facility] [place] [address] Dec, 2013 [facility] [place] [facility] [address] [id number] [place] [address] Oct, [facility] [place] [facility] [address] [id number] [place] [address] Oct, [facility] [place] [facility] [address] [id number] [place] [address] Sep, [facility] [place] [facility] [address] [facility] [id number] [place] [address] Sep, [facility] [place] [facility] [address] [id number] [place] [address] Sep, [facility] [place] [facility] [address] [id number] [place] [address] Sep, [facility] [place] [facility] [address] [id number] [place] [address] Sep, [facility] [place] [facility] [address] [facility] [id number] [place] [address] Sep, [facility] [place] [facility] [address] [id number] [place] [address] Sep, [facility] [place] [facility] [address] [id number] [place] [address] Sep, [facility] [place] [facility] [address] [id number] [place] [address] August, [facility] [place] [facility] [address] [id number] [place] [address] August, [facility] [place] [facility] [address] [id number] [place] [address] August, [facility] [place] [facility] [address] [id number] [place] [address] August, [facility] [place] [facility] [address] [id number] [place] [address] August, [facility] [place] [facility] [address] [id number] [place] [address] August, [facility] [place] [facility] [address] [id number] [place] [address] Jul, [facility] [place] [facility] [address] [id number] [place] [address] Jul, [facility] [place] [facility] [address] [id number] [place] [address] Jun, [facility] [place] [facility] [address] [id number] [place] [address] Jun, [facility] [place] [facility] [address] [id number] [place] [address] May, [facility] [place] [facility] [address] [id number] [place] [address] Apr, [facility] [place] [facility] [address] [id number] [place] [address] Apr, [facility] [place] [facility] [address] [id number] [place] [address] Apr, [facility] [place] [facility] [address] [id number] [place] [address] Apr, [facility] [place] [facility] [id number] [place] [address] Apr, [facility] [place] [facility] [address] [id number] [place] [address] Apr, [facility] [place] [facility] [address] [id number] [place] [address] Mar, [facility] [place] [facility] [address] [id number] [place] [address] Mar, [facility] [place] [facility] [address] [id number] [place] [address] Mar, [facility] [place] [facility] [address] [id number] [place] [address] Mar, [facility] [place] [facility] [address] [id number] [place] [address] Mar, [facility] [place] [facility] [address] [id number] [place] [address] Mar, [facility] [place] [facility] [address] [id number] [place] [address] Mar, [facility] [place] [facility] [address] [id number] [place] [address] Mar, [facility] [place] [facility] [address] [id number] [place] [address] Mar, [facility] [place] [facility] [address] [id number] [place] [address] Mar, [facility] [place] [facility] [address] [id number] [place] [address] Mar, [facility] [place] [facility] [address] [id number] [place] [address] Mar, [facility] [place] [facility] [address] [id number] [place] [address] Nov, [facility] [place] [facility] [address] [id number] [place] [address] Nov, [facility] [place] [facility] [address] [id number] [place] [address] Sep, [facility] [place] [facility] [address] [id number] [place] [address] August, [facility] [place] [facility] [address] [id number] [place] [address] August, [facility] [place] [facility] [address] [id number] [place] [address] August, [facility] [place] [address] [facility] [id number] [place] [address] August, [facility] [place] [address] [id number] [place] [address] August, [facility] [place] [address] [facility] [id number] [place] [address] Jul, IMMUNIZATIONS No Known Immunizations SOCIAL HISTORY Never Assessed REASON FOR VISIT PLAN OF CARE VITAL SIGNS MEDICATIONS Unknown [...] Hospitalization History Abses removed from [facility] May Hospitalization History miscarriage--over night stay 02/2017
--- OUTSIDE RECORDS SUMMARY | 2019-10-07 12:26 | XMS REPORT ---
Author Author Dano ROSEN [facility] Address [address] [place] [address] Care Team Providers Care Site Supervisor Name Role Phone DAISY ROSEN Unavailable PROBLEMS Type Condition ICD9-CM Code [id number] Code Onset Dates Condition S tatus SNOMED Code Problem Anxiety disorder, unspecified F41.9 Active 005706125 Problem Cannabis use disorder, mild, abuse F12.10 Active 50756054 Problem BMI 45.0-49.9, adult Z68.42 Active 314287410 Problem Ganglion of joint M67.40 Active 78 329972 Problem Tobacco use Z72.0 Active 36940040 0 Problem Anxiety F41.9 Active 26571951 Problem Type 2 diabetes mellitus E11.9 Activ e 30805392 Problem Fibrocystic breast, right N60.11 Acti ve 78119235 Problem Hypercholesteremia E78.0 Active 1 3519250 Problem Binge eating disorder F50.81 Active 072897391 Problem Fibrocystic breast, left N60.12 Activ e 44816980 Problem Hypertriglyceridemia E78.1 Active 454555139 Problem Chest pain, unspecified R07.9 Active 98610852 Problem Surveillance of contraceptive injection Z30.42 Active 570375105 Problem Abdominal pain, left upper quadrant R10.12 Active 713556196 Problem Hypothyroid E03.9 Active 68365513 Problem 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 Active 79425705 ALLERGIES No Information ENCOUNTERS Encounter Location Date Diagnosis [facility] [id number] [place] [address] Jul, Type 2 diabetes mellitus E11.9 [facility] [address] [id number] [place] [address] Jun, Type 2 diabetes mellitus E11.9 ; Onychom ycosis B35.1 and Morbid obesity E66.01 [place] [address] [address] 18 May, 2018 Type 2 diabetes mellitus E11.9 ; Hypothy roid E03.9 ; Tobacco use Z72.0 and Vaginal yeast infection B37.3 [place] [address] [address] May, BMI 45.0-49.9, adult Z68.42 [place] [address] [address] 11 May, 2018 BMI 45.0-49.9, adult Z68.42 [place] [address] [address] May, BMI 45.0-49.9, adult Z68.42 [place] [address] [address] Apr, BMI 45.0-49.9, adult Z68.42 [place] [address] [address] Mar, [place] [address] [address] Mar, BMI 45.0-49.9, adult Z68.42 [place] [address] [address] Feb, [place] [address] [address] Feb, [place] [address] [address] Feb, BMI 45.0-49.9, adult Z68.42 [place] [address] [address] Jan, BMI 45.0-49.9, adult Z68.42 [place] [address] [address] Jan, [place] [address] [address] 24 Dec, 2017 History of miscarriage Z87.59 ; Type 2 d iabetes mellitus E11.9 ; Hyperglycemia R73.9 ; Yeast vaginitis B37.3 ; BMI 45.0-49.9, adult Z68.42 and Binge eating disorder F50.[address] [address] 17 Dec, 2017 BMI 45.0-49.9, adult Z68.42 ; Hypothyroi d E03.9 and Type 2 diabetes mellitus E11.[address] [address] 07 Dec, 2017 Onychomycosis B35.1 and Type 2 diabetes mellitus with diabetic neuropathy, unspecified whether skilled nursing insulin use E11.[address] [address] Oct, Hypertriglyceridemia E78.[address] [address] 16 Oct, 2017 Type 2 diabetes mellitus E11.9 ; Hyperch olesteremia E78.0 and Hypothyroid E03.[address] [address] Sep, BMI 45.0-49.9, adult Z68.[address] [address] Sep, Type 2 diabetes mellitus E11.9 [place] [address] [address] Sep, [address] [address] Sep, Type 2 diabetes mellitus E11.[address] [address] Sep, Hypothyroid E03.9 ; Type 2 diabetes frances itus E11.9 ; Toe pain, left M79.675 and BMI 45.0-49.9, adult Z68.42 [place] [address] [address] Jul, [facility] [address] [facility] [id number] [place] [address] 23 May, 2017 Influenza-like illness R69 a nd BMI 40.0-44.9, adult Z68.41 [place] [address] [address] 08 May, 2017 Binge eating disorder F50.81 [place] [address] [address] Apr, [place] [address] [address] Apr, Binge eating disorder F50.81 [place] [address] [address] Mar, Binge eating disorder F50.81 [place] [address] [address] Feb, [place] [address] [address] Feb, Diabetes E11.9 ; Binge eating disorder F 50.81 and BMI 40.0-44.9, adult Z68.41 [place] [address] [address] Jan, Anxiety disorder, unspecified F41.9 and Anxiety F41.9 [place] [address] [address] 04 Jan, 2017 Anxiety disorder, unspecified F41.9 ; Ca nnabis use disorder, mild, abuse F12.10 and Adjustment disorder with mixed disturbance of em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 [place] [address] [address] August, Hypothyroid E03.9 [place] [address] [address] August, Type 2 diabetes mellitus E11.9 [place] [address] [address] Jun, [place] [address] [address] Jun, Diabetes E11.9 ; Dysuria R30.0 and Urina ry tract infection without hematuria, site unspecified N39.0 [place] [address] [address] Jun, [place] [address] [address] May, [place] [address] [address] Mar, [place] [address] [address] Mar, Pain of left leg M79.605 [place] [address] [address] Feb, [place] [address] [address] Feb, Type 2 diabetes mellitus E11.9 [place] [address] [address] Jan, [place] [address] [address] Jan, [place] [address] [address] Jan, Discharge of breast N64.52 [place] [address] [address] Jan, Menorrhagia N92.0 ; Encounter for control [...] Fibrocystic breast, left N60.12 and Anxiety F41.9 [place] [address] [address] Dec, Diabetes E11.9 ; Right foot pain M79.671 ; Left upper quadrant pain R10.12 ; Pain in right leg M79.604 ; Pain of left leg M79.605 ; Other chest pain R07.89 ; Palpitations R00.2 ; Hypothyroid E03.9 ; Discharge of breast N64.52 and Hyperlipidemia, unspecified hyperlipidemia type E78.5 [place] [address] [address] Dec, [place] [address] [address] Oct, [place] [address] [address] Oct, [place] [address] [address] Sep, [place] [address] [address] August, [place] [address] [address] August, [place] [address] [address] Jul, Hypothyroid E03.9 [place] [address] [address] Jun, [place] [address] [address] May, Menorrhagia N92.0 ; Diabetes E11.9 ; Hyp othyroid E03.9 and Tobacco abuse Z72.0 [place] [address] [address] May, [place] [address] [address] May, Well woman exam Z01.419 ; BMI 45.0-49.9, adult Z68.42 ; Type 2 diabetes mellitus E11.9 ; Weight loss R63.4 ; Chest pain, unspecified R07.9 ; Hypercholesteremia E78.0 and Routine screening for STI (sexually transmitted infection) Z11.3 [place] [address] [address] 05 May, 2015 [place] [address] [address] 04 May, 2015 Well woman exam Z01.419 [...] Fibrocystic breast, left N60.12 and Anxiety F41.9 [place] [address] [address] May, [facility] [address] [address] Mar, [facility] [address] [address] Feb, [facility] [address] [address] Feb, Diabetes E11.9 ; Eustachian tube dysfunc tion, right H69.81 and Myalgia M79.1 [facility] [address] [address] Feb, [facility] [address] [address] Nov, Mastodynia, female 611.71 [facility] [address] [address] Oct, Obesity 278.00 [facility] [address] [address] Oct, Diabetes mellitus without mention of com plication, type II or unspecified type, not stated as uncontrolled 250.00 ; Anxiety 300.00 and Obesity 278.00 [facility] [address] [address] Sep, [facility] [address] [address] Sep, Diabetes mellitus without mention of com plication, type II or unspecified type, not stated as uncontrolled 250.00 and Anxiety 300.00 [facility] [address] [address] Sep, [facility] [address] [address] Jul, [facility] [address] [address] Jul, [facility] [address] [address] Jun, [facility] [place] [facility] [address] [id number] [place] [address] Jun, [facility] [place] [facility] [address] [id number] [place] [address] May, [facility] [place] [facility] [address] [id number] [place] [address] May, [facility] [place] [facility] [address] [id number] [place] [address] Apr, [facility] [place] [facility] [address] [id number] [place] [address] Apr, [facility] [place] [facility] [address] [id number] [place] [address] Apr, [facility] [place] [facility] [address] [id number] [place] [address] Apr, [facility] [place] [facility] [address] [id number] [place] [address] Apr, [facility] [place] [facility] [address] [id number] [place] [address] Apr, [facility] [place] [facility] [address] [id number] [place] [address] Apr, [facility] [place] [facility] [address] [id number] [place] [address] Apr, [facility] [place] [facility] [address] [id number] [place] [address] Apr, [facility] [place] [facility] [address] [id number] [place] [address] Apr, [facility] [place] [facility] [address] [id number] [place] [address] Apr, [facility] [place] [facility] [address] [id number] [place] [address] Feb, [facility] [place] [facility] [address] [id number] [place] [address] Feb, [facility] [place] [facility] [address] [id number] [place] [address] 12 Dec, 2013 [facility] [place] [facility] [address] [facility] [id number] [place] [address] 12 Dec, 2013 [facility] [place] [facility] [address] [facility] [id number] [facility] [address] Dec, 2013 [facility] [place] [facility] [address] [facility] [id number] [place] [address] Dec, 2013 [facility] [place] [facility] [address] [facility] [id number] [place] [address] Dec, 2013 [facility] [place] [facility] [address] [facility] [id number] [facility] [address] Dec, 2013 [facility] [place] [facility] [address] [id number] [place] [address] Oct, [facility] [place] [facility] [address] [id number] [place] [address] Oct, [facility] [place] [facility] [address] [id number] [place] [address] Sep, [facility] [place] [facility] [address] [facility] [id number] [place] [address] Sep, [facility] [place] [facility] [address] [id number] [place] [address] Sep, [facility] [place] [facility] [address] [id number] [place] [address] Sep, [facility] [place] [facility] [address] [id number] [place] [address] Sep, [facility] [place] [facility] [address] [facility] [id number] [place] [address] Sep, [facility] [place] [facility] [address] [id number] [place] [address] Sep, [facility] [place] [facility] [address] [id number] [place] [address] Sep, [facility] [place] [facility] [address] [id number] [place] [address] August, [facility] [place] [facility] [address] [id number] [place] [address] August, [facility] [place] [facility] [address] [id number] [place] [address] August, [facility] [place] [facility] [address] [id number] [place] [address] August, [facility] [place] [facility] [address] [id number] [place] [address] August, [facility] [place] [facility] [address] [id number] [place] [address] August, [facility] [place] [facility] [address] [id number] [place] [address] Jul, [facility] [place] [facility] [address] [id number] [place] [address] Jul, [facility] [place] [facility] [address] [id number] [place] [address] Jun, [facility] [place] [facility] [address] [id number] [place] [address] Jun, [facility] [place] [facility] [address] [id number] [place] [address] May, [facility] [place] [facility] [address] [id number] [place] [address] Apr, [facility] [place] [facility] [address] [id number] [place] [address] Apr, [facility] [place] [facility] [address] [id number] [place] [address] Apr, [facility] [place] [facility] [address] [id number] [place] [address] Apr, [facility] [place] [facility] [id number] [place] [address] Apr, [facility] [place] [facility] [address] [id number] [place] [address] Apr, [facility] [place] [facility] [address] [id number] [place] [address] Mar, [facility] [place] [facility] [address] [id number] [place] [address] Mar, [facility] [place] [facility] [address] [id number] [place] [address] Mar, [facility] [place] [facility] [address] [id number] [place] [address] Mar, [facility] [place] [facility] [address] [id number] [place] [address] Mar, [facility] [place] [facility] [address] [id number] [place] [address] Mar, [facility] [place] [facility] [address] [id number] [place] [address] Mar, [facility] [place] [facility] [address] [id number] [place] [address] Mar, [facility] [place] [facility] [address] [id number] [place] [address] Mar, [facility] [place] [facility] [address] [id number] [place] [address] Mar, [facility] [place] [facility] [address] [id number] [place] [address] Mar, [facility] [place] [facility] [address] [id number] [place] [address] Mar, [facility] [place] [facility] [address] [id number] [place] [address] Nov, [facility] [place] [facility] [address] [id number] [place] [address] Nov, [facility] [place] [facility] [address] [id number] [place] [address] Sep, [facility] [place] [facility] [address] [id number] [place] [address] August, [facility] [place] [facility] [address] [id number] [place] [address] August, [facility] [place] [facility] [address] [id number] [place] [address] August, [facility] [address] [facility] [id number] [place] [address] August, [facility] [address] [id number] [place] [address] August, [facility] [address] [facility] [id number] [place] [address] Jul, IMMUNIZATIONS No Known Immunizations SOCIAL HISTORY [...] History surgeries Hospitalization History Abses removed from [facility] May Hospitalization History miscarriage--over night stay 02/2017
--- OUTSIDE RECORDS SUMMARY | 2019-10-07 12:26 | XMS REPORT ---
Author Author Dano ROSEN Organization [facility] Address [address] [place] [address] Care Team Providers Care Payroll Benefits Clerk Name Role Phone DAISY ROSEN Unavailable PROBLEMS Type Condition ICD9-CM Code BDA33-ZT Code Onset Dates Condition S tatus SNOMED Code Problem Anxiety disorder, unspecified F41.9 Active 206519069 Problem Cannabis use disorder, mild, abuse F12.10 Active 08699510 Problem BMI 45.0-49.9, adult Z68.42 Active 909821032 Problem Ganglion of joint M67.40 Active 78 363874 Problem Tobacco use Z72.0 Active 50200765 0 Problem Anxiety F41.9 Active 22471259 Problem Type 2 diabetes mellitus E11.9 Activ e 59105702 Problem Fibrocystic breast, right N60.11 Acti ve 02158926 Problem Hypercholesteremia E78.0 Active 1 9739969 Problem Binge eating disorder F50.81 Active 792113044 Problem Fibrocystic breast, left N60.12 Activ e 45532389 Problem Hypertriglyceridemia E78.1 Active 085710694 Problem Chest pain, unspecified R07.9 Active 66861505 Problem Surveillance of contraceptive injection Z30.42 Active 050382477 Problem Abdominal pain, left upper quadrant R10.12 Active 221786069 Problem Hypothyroid E03.9 Active 50348942 Problem 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 Active 12249070 ALLERGIES No Information ENCOUNTERS Encounter Location Date Diagnosis [facility] [address] [place] [address] Jul, 26 weeks gestation of pregna ncy Z3A.26 ; Type 2 diabetes mellitus E11.[address] [facility] [address] [facility] [id number] [address] [place] [address] Jul, [facility] [address] [facility] [id number] [address] [place] [address] Jun, Type 2 diabetes mellitus E11 .9 [facility] [address] [facility] [id number] [address] [place] [address] May, [facility] [address] [facility] [id number] [address] [place] [address] May, [facility] [address] [facility] [id number] [address] [place] [address] May, Type 2 diabetes mellitus E11 .9 [facility] [address] [facility] [id number] [address] [place] [address] May, [facility] [address] [facility] [id number] [address] [place] [address] Jul, Type 2 diabetes mellitus E11 .9 [facility] [address] [place] [id number] [place] [address] Jun, Type 2 diabetes mellitus E11 .9 ; Onychomycosis B35.1 and Morbid obesity E66.01 [place] [address] [place] [address] May, Type 2 diabetes mellitus E11 .9 ; Hypothyroid E03.9 ; Tobacco use Z72.0 and Vaginal yeast infection B37.3 [place] [address] [place] [address] May, BMI 45.0-49.9, adult Z68.42 [place] [address] [place] [id number] [address] [place] [address] 11 May, 2018 BMI 45.0-49.9, adult Z68.42 [place] [address] [place] [id number] [place] [address] 07 May, 2018 BMI 45.0-49.9, adult Z68.42 [place] [address] [place] [address] Apr, BMI 45.0-49.9, adult Z68.42 [place] [address] [address] Mar, [place] [address] [address] Mar, BMI 45.0-49.9, adult Z68.42 [place] [address] [address] Feb, [place] [address] [address] Feb, [place] [address] [address] Feb, BMI 45.0-49.9, adult Z68.42 [place] [address] [address] Jan, BMI 45.0-49.9, adult Z68.42 [place] [address] [address] Jan, [place] [address] [address] Dec, History of miscarriage Z87.5 9 ; Type 2 diabetes mellitus E11.9 ; Hyperglycemia R73.9 ; Yeast vaginitis B37.3 ; BMI 45.0-49.9, adult Z68.42 and Binge eating disorder F50.81 [place] [address] [address] 17 Dec, 2017 BMI 45.0-49.9, adult Z68.42 ; Hypothyroid E03.9 and Type 2 diabetes mellitus E11.9 [place] [address] [address] 07 Dec, 2017 Onychomycosis B35.1 and Type 2 diabetes mellitus with diabetic neuropathy, unspecified whether penitentiary insulin use E11.40 [place] [address] [address] Oct, Hypertriglyceridemia E78.1 [facility] [address] [address] Oct, Type 2 diabetes mellitus E11 .9 ; Hypercholesteremia E78.[address] [facility] [address] [address] Sep, BMI 45.0-49.9, adult Z68.42 [place] [address] [address] Sep, Type 2 diabetes mellitus E11 .9 [place] [address] [address] Sep, [place] [address] [address] Sep, Type 2 diabetes mellitus E11 .9 [facility] [address] [address] 04 Sep, 2017 Hypothyroid E03.9 ; Type 2 d iabetes mellitus E11.9 ; Toe pain, left M79.675 and BMI 45.0-49.9, adult Z68.42 [facility] [address] [place] [id number] [place] [address] Jul, [facility] [address] [place] [id number] [place] [address] May, Influenza-like illness R69 a nd BMI 40.0-44.9, adult Z68.41 [facility] [address] [address] May, Binge eating disorder F50.81 [facility] [address] [place] [id number] [place] [address] Apr, [facility] [address] [address] Apr, Binge eating disorder F50.81 [facility] [address] [place] [id number] [address] [place] [address] Mar, Binge eating disorder F50.81 [facility] [address] [facility] [id number] [address] [place] [address] Feb, [place] [address] [address] Feb, Diabetes E11.9 ; Binge eatin g disorder F50.81 and BMI 40.0-44.9, adult Z68.41 [place] [address] [address] Jan, Anxiety disorder, unspecifie d F41.9 and Anxiety F41.9 [place] [address] [place] [id number] [place] [address] Jan, Anxiety disorder, unspecifie d F41.9 ; Cannabis use disorder, mild, abuse F12.10 and Adjustment disorder with mixed disturbance of em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 [place] [address] [place] [id number] [place] [address] August, Hypothyroid E03.9 [place] [address] [place] [id number] [address] [place] [address] August, Type 2 diabetes mellitus E11 .9 [place] [address] [place] [address] Jun, [place] [address] [place] [id number] [address] [place] [address] Jun, Diabetes E11.9 ; Dysuria R30 .0 and Urinary tract infection without hematuria, site unspecified N39.0 [place] [address] [place] [id number] [address] [place] [address] Jun, [place] [address] [place] [id number] [place] [address] May, [place] [address] [place] [id number] [address] [place] [address] Mar, [place] [address] [place] [id number] [place] [address] Mar, Pain of left leg M79.605 [place] [address] [place] [id number] [address] [place] [address] Feb, [place] [address] [address] Feb, Type 2 diabetes mellitus E11 .9 [place] [address] [place] [id number] [address] [place] [address] Jan, [place] [address] [address] Jan, [place] [address] [place] [address] Jan, Discharge of breast N64.52 [place] [address] [place] [id number] [address] [place] [address] 03 Jan, 2016 Menorrhagia N92.0 ; Encounte [...] Fibrocystic breast, left N60.[address] [facility] [address] [id number] [address] [place] [address] Dec, Diabetes E11.9 ; Right foot pain M79.671 ; Left upper quadrant pain R10.12 ; Pain in right leg M79.604 ; Pain of left leg M79.605 ; Other chest pain R07.89 ; Palpitations R00.2 ; Hypothyroid E03.9 ; Discharge of breast N64.52 and Hyperlipidemia, unspecified hyperlipidemia type E78.5 [facility] [address] [facility] [id number] [address] [place] [address] Dec, [facility] [address] [id number] [address] [place] [address] Oct, [facility] [address] [id number] [address] [place] [address] Oct, [facility] [address] [id number] [address] [place] [address] Sep, [facility] [address] [facility] [id number] [address] [place] [address] August, [facility] [address] [id number] [address] [place] [address] August, [facility] [address] [id number] [address] [place] [address] Jul, Hypothyroid E03.9 [facility] [address] [id number] [address] [place] [address] Jun, [facility] [address] [facility] [id number] [address] [place] [address] May, Menorrhagia N92.0 ; Diabetes E11.9 ; Hypothyroid E03.9 and Tobacco abuse Z72.0 [place] [address] [facility] [id number] [address] [place] [address] 15 May, 2015 [place] [address] [facility] [id number] [address] [place] [address] 09 May, 2015 Well woman exam Z01.419 ; BM I 45.0-49.9, adult Z68.42 ; Type 2 diabetes mellitus E11.9 ; Weight loss R63.4 ; Chest pain, unspecified R07.9 ; Hypercholesteremia E78.0 and Routine screening for STI (sexually transmitted infection) Z11.3 [place] [address] [facility] [id number] [address] [place] [address] 05 May, 2015 [place] [address] [place] [id number] [address] [place] [address] 04 May, 2015 Well woman exam Z01.419 [...] Fibrocystic breast, left N60.12 and Anxiety F41.9 [place] [address] [place] [id number] [address] [place] [address] May, [place] [address] [facility] [id number] [address] [place] [address] Mar, [place] [address] [place] [id number] [address] [place] [address] Feb, [place] [address] [place] [id number] [address] [place] [address] Feb, Diabetes E11.9 ; Eustachian tube dysfunction, right H69.[address] [facility] [address] [address] Feb, [facility] [address] [address] Nov, Mastodynia, female 611.71 [facility] [address] [address] Oct, Obesity 278.00 [facility] [address] [address] Oct, Diabetes mellitus without me ntion of complication, type II or unspecified type, not stated as uncontrolled 250.00 ; Anxiety 300.[address] [facility] [address] [address] Sep, [facility] [address] [address] Sep, Diabetes mellitus without me ntion of complication, type II or unspecified type, not stated as uncontrolled 250.[address] [facility] [address] [address] Sep, [facility] [address] [address] Jul, [facility] [address] [address] Jul, [facility] [address] [address] Jun, [facility] [address] [address] Jun, [facility] [address] [place] [id number] [address] [place] [address] May, [facility] [address] [address] May, [facility] [address] [id number] [address] [place] [address], [place] [address] Apr, [facility] [address] [id number] [address] [place] [address], [place] [address] Apr, [facility] [address] [id number] [address] [place] [address], [place] [address] Apr, [facility] [address] [id number] [address] [place] [address], [place] [address] Apr, [facility] [address] [id number] [address] [place] [address], [place] [address] Apr, [facility] [address] [id number] [address] [place] [address], [place] [address] Apr, [facility] [address] [id number] [address] [place] [address], [place] [address] Apr, [facility] [address] [id number] [address] [place] [address], [place] [address] Apr, [facility] [address] [id number] [address] [place] [address], [place] [address] Apr, [facility] [address] [id number] [address] [place] [address], [place] [address] Apr, [facility] [address] [id number] [address] [place] [address], [place] [address] Apr, [facility] [address] [id number] [address] [place] [address], [place] [address] Feb, [facility] [address] [id number] [address] [place] [address], [place] [address] Feb, [facility] [address] [id number] [address] [place] [address], [place] [address] Dec, [facility] [address] [id number] [address] [place] [address], [place] [address] Dec, [facility] [address] [id number] [facility] [place] [address] 04 Dec, 2013 [facility] [address] [id number] [address] [place] [address], [place] [address] 04 Dec, 2013 [facility] [address] [id number] [address] [place] [address], [place] [address] 03 Dec, 2013 [facility] [address] [id number] [address] [place] [address], [place] [address] 03 Dec, 2013 [facility] [address] [id number] [address] [place] [address], [place] [address] Oct, [facility] [address] [id number] [address] [place] [address], [place] [address] Oct, [facility] [address] [id number] [address] [place] [address], [place] [address] Sep, [facility] [address] [id number] [address] [place] [address], [place] [address] Sep, [facility] [address] [id number] [address] [place] [address], [place] [address] Sep, [facility] [address] [id number] [address] [place] [address], [place] [address] Sep, [facility] [address] [id number] [address] [place] [address], [place] [address] Sep, [facility] [address] [id number] [address] [place] [address], [place] [address] Sep, [facility] [address] [id number] [address] [place] [address], [place] [address] Sep, [facility] [address] [id number] [address] [place] [address], [place] [address] Sep, [facility] [address] [id number] [address] [place] [address], [place] [address] August, [facility] [address] [id number] [address] [place] [address], [place] [address] August, [facility] [address] [id number] [facility] [place] [address] August, [facility] [address] [id number] [address] [place] [address], [place] [address] August, [facility] [address] [id number] [address] [place] [address], [place] [address] August, [facility] [address] [id number] [address] [place] [address], [place] [address] August, [facility] [address] [id number] [address] [place] [address], [place] [address] Jul, [facility] [address] [id number] [address] [place] [address], [place] [address] Jul, [facility] [address] [id number] [address] [place] [address], [place] [address] Jun, [facility] [address] [id number] [address] [place] [address], [place] [address] Jun, [facility] [address] [id number] [address] [place] [address], [place] [address] May, [facility] [address] [id number] [address] [place] [address], [place] [address] Apr, [facility] [address] [id number] [address] [place] [address], [place] [address] Apr, [facility] [address] [id number] [address] [place] [address], [place] [address] Apr, [facility] [address] [id number] [address] [place] [address], [place] [address] Apr, [facility] [address] [id number] [address] [place] [address], [place] [address] Apr, [facility] [address] [id number] [address] [place] [address], [place] [address] Apr, [facility] [address] [id number] [address] [place] [address], [place] [address] Mar, [facility] [address] [id number] [address] [place] [address], [place] [address] Mar, [facility] [address] [id number] [address] [place] [address], [place] [address] Mar, [facility] [address] [id number] [address] [place] [address], [place] [address] Mar, [facility] [address] [id number] [address] [place] [address], [place] [address] Mar, [facility] [address] [id number] [address] [place] [address], [place] [address] Mar, [facility] [address] [id number] [address] [place] [address], [place] [address] Mar, [facility] [address] [id number] [address] [place] [address], [place] [address] Mar, [facility] [address] [id number] [address] [place] [address], [place] [address] Mar, [facility] [address] [id number] [address] [place] [address], [place] [address] Mar, [facility] [address] [id number] [address] [place] [address], [place] [address] Mar, [facility] [address] [id number] [address] [place] [address], [place] [address] Mar, [facility] [address] [id number] [address] [place] [address], [place] [address] Nov, [facility] [address] [id number] [address] [place] [address], [place] [address] Nov, [facility] [address] [id number] [address] [place] [address], [place] [address] Sep, [facility] [address] [id number] [address] [place] [address], [place] [address] August, [facility] [address] [id number] [address] [place] [address] August, [facility] [address] [facility] [id number] [address] [place] [address] August, [facility] [address] [facility] [id number] [address] [place] [address] August, [facility] [address] [facility] [id number] [address] [place] [address] August, [facility] [address] [facility] [id number] [address] [place] [address] Jul, IMMUNIZATIONS No Known Immunizations SOCIAL HISTORY [...] History surgeries Hospitalization History Abses removed from [facility] May Hospitalization History miscarriage--over night stay 02/2017
--- OUTSIDE RECORDS SUMMARY | 2019-10-07 12:27 | XMS REPORT ---
Author Author Dano ROSEN [facility] Address [address] [place] [address] Care Team Providers Care Scaffold Erector Name Role Phone DAISY ROSEN Unavailable PROBLEMS Type Condition ICD9-CM Code YTI02-SK Code Onset Dates Condition S tatus SNOMED Code Problem Anxiety disorder, unspecified F41.9 Active 215407229 Problem Cannabis use disorder, mild, abuse F12.10 Active 18779206 Problem BMI 45.0-49.9, adult Z68.42 Active 609105424 Problem Ganglion of joint M67.40 Active 78 819219 Problem Tobacco use Z72.0 Active 66220396 0 Problem Anxiety F41.9 Active 03077586 Problem Type 2 diabetes mellitus E11.9 Activ e 57415684 Problem Fibrocystic breast, right N60.11 Acti ve 59618255 Problem Hypercholesteremia E78.0 Active 1 9146763 Problem Binge eating disorder F50.81 Active 022649012 Problem Fibrocystic breast, left N60.12 Activ e 07811651 Problem Hypertriglyceridemia E78.1 Active 902595733 Problem Chest pain, unspecified R07.9 Active 33454774 Problem Surveillance of contraceptive injection Z30.42 Active 460165944 Problem Abdominal pain, left upper quadrant R10.12 Active 443916459 Problem Hypothyroid E03.9 Active 16758710 Problem 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 Active 13794359 ALLERGIES No Information ENCOUNTERS Encounter Location Date Diagnosis [facility] [address] [facility] [id number] [address] [place] [id number] Jul, Type 2 diabetes mellitus E11 .9 [facility] [address] [facility] [id number] [address] [place] [address] Jun, Type 2 diabetes mellitus E11 .9 ; Onychomycosis B35.1 and Morbid obesity E66.01 [place] [address] [place] [address] 18 May, 2018 Type 2 diabetes mellitus E11 .9 ; Hypothyroid E03.9 ; Tobacco use Z72.0 and Vaginal yeast infection B37.3 [place] [address] [place] [id number] [address] [place] [address] 11 May, 2018 BMI 45.0-49.9, adult Z68.42 [place] [address] [address] 11 May, 2018 BMI 45.0-49.9, adult Z68.42 [place] [address] [address] 07 May, 2018 BMI 45.0-49.9, adult Z68.42 [place] [address] [address] 15 Apr, 2018 BMI 45.0-49.9, adult Z68.42 [place] [address] [address] Mar, [place] [address] [address] Mar, BMI 45.0-49.9, adult Z68.42 [place] [address] [address] Feb, [place] [address] [address] Feb, [place] [address] [address] Feb, BMI 45.0-49.9, adult Z68.42 [place] [address] [place] [id number] [place] [address] Jan, BMI 45.0-49.9, adult Z68.42 [place] [address] [address] Jan, [place] [address] [place] [id number] [address] [place] [id number] 24 Dec, 2017 History of miscarriage Z87.5 9 ; Type 2 diabetes mellitus E11.9 ; Hyperglycemia R73.9 ; Yeast vaginitis B37.3 ; BMI 45.0-49.9, adult Z68.42 and Binge eating disorder F50.81 [place] [address] [address] 17 Dec, 2017 BMI 45.0-49.9, adult Z68.42 ; Hypothyroid E03.9 and Type 2 diabetes mellitus E11.9 [place] [address] [address] 07 Dec, 2017 Onychomycosis B35.1 and Type 2 diabetes mellitus with diabetic neuropathy, unspecified 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.40 [place] [address] [address] Oct, Hypertriglyceridemia E78.1 [place] [address] [address] 16 Oct, 2017 Type 2 diabetes mellitus E11 .9 ; Hypercholesteremia E78.0 and Hypothyroid E03.9 [place] [address] [place] [id number] [address] [place] [address] Sep, BMI 45.0-49.9, adult Z68.42 [place] [address] [place] [id number] [address] [place] [address] Sep, Type 2 diabetes mellitus E11 .9 [place] [address] [place] [id number] [address] [place] [id number] Sep, [place] [address] [place] [id number] [address] [place] [address] Sep, Type 2 diabetes mellitus E11 .9 [place] [address] [place] [id number] [address] [place] [id number] 04 Vu, 2018 Hypothyroid E03.9 ; Type 2 d iabetes mellitus E11.9 ; Toe pain, left M79.675 and BMI 45.0-49.9, adult Z68.42 [place] [address] [address] Jul, [facility] [address] [address] May, Influenza-like illness R69 a nd BMI 40.0-44.9, adult Z68.41 [place] [address] [address] May, Binge eating disorder F50.81 [place] [address] [address] Apr, [place] [address] [address] Apr, Binge eating disorder F50.81 [place] [address] [address] Mar, Binge eating disorder F50.81 [place] [address] [address] Feb, [place] [address] [address] Feb, Diabetes E11.9 ; Binge eatin g disorder F50.81 and BMI 40.0-44.9, adult Z68.41 [place] [address] [address] Jan, Anxiety disorder, unspecifie d F41.9 and Anxiety F41.9 [place] [address] [address] 04 Jan, 2017 Anxiety disorder, unspecifie d F41.9 ; Cannabis use disorder, mild, abuse F12.10 and Adjustment disorder with mixed disturbance of em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 [place] [address] [place] [address] August, Hypothyroid E03.9 [facility] [address] [id number] [address] [place] [address] August, Type 2 diabetes mellitus E11 .9 [facility] [address] [id number] [address] [place] [id number] Jun, [facility] [address] [facility] [id number] [address] [place] [id number] Jun, Diabetes E11.9 ; Dysuria R30 .0 and Urinary tract infection without hematuria, site unspecified N39.0 [facility] [address] [id number] [address] [place] [address] Jun, [facility] [address] [facility] [id number] [address] [place] [address] May, [facility] [address] [facility] [id number] [address] [place] [address] Mar, [facility] [address] [id number] [address] [place] [address] Mar, Pain of left leg M79.605 [facility] [address] [facility] [id number] [address] [place] [id number] Feb, [facility] [address] [facility] [id number] [address] [place] [id number] Feb, Type 2 diabetes mellitus E11 .9 [facility] [address] [id number] [address] [place] [id number] Jan, [facility] [address] [facility] [id number] [address] [place] [id number] Jan, [facility] [address] [facility] [id number] [address] [place] [address] Jan, Discharge of breast N64.52 [facility] [address] [facility] [id number] [address] [place] [id number] 03 Oct, 2016 Menorrhagia N92.0 ; Encounte r for [...] Fibrocystic breast, left N60.12 and Anxiety F41.9 [place] [address] [facility] [id number] [address] [place] [address] Dec, Diabetes E11.9 ; Right foot pain M79.671 ; Left upper quadrant pain R10.12 ; Pain in right leg M79.604 ; Pain of left leg M79.605 ; Other chest pain R07.89 ; Palpitations R00.2 ; Hypothyroid E03.9 ; Discharge of breast N64.52 and Hyperlipidemia, unspecified hyperlipidemia type E78.5 [place] [address] [facility] [id number] [address] [place] [address] Dec, [place] [address] [facility] [id number] [address] [place] [phone] Oct, [place] [address] [place] [id number] [address] [place] [id number] Oct, [facility] [address] [address] Sep, [facility] [address] [place] [id number] [address] [place] [address] August, [place] [address] [address] August, [facility] [address] [address] Jul, Hypothyroid E03.9 [place] [address] [address] Jun, [place] [address] [address] May, Menorrhagia N92.0 ; Diabetes E11.9 ; Hypothyroid E03.9 and Tobacco abuse Z72.0 [place] [address] [place] [address] May, [place] [address] [address] May, Well woman exam Z01.419 ; BM I 45.0-49.9, adult Z68.42 ; Type 2 diabetes mellitus E11.9 ; Weight loss R63.4 ; Chest pain, unspecified R07.9 ; Hypercholesteremia E78.0 and Routine screening for STI (sexually transmitted infection) Z11.3 [facility] [address] [place] [address] May, [place] [address] [place] [id number] [address] [place] [address] 04 May, 2015 Well woman exam Z01.419 [...] Fibrocystic breast, left N60.12 and Anxiety F41.[address] [address] 04 May, [address] [address] Mar, [address] [address] Feb, [address] [address] Feb, Diabetes E11.9 ; Eustachian tube dysfunction, right H69.81 and Myalgia M79.[address] [address] Feb, [address] [address] Nov, Mastodynia, female 611.[address] [address] Oct, Obesity 278.[address] [address] Oct, Diabetes mellitus without me ntion of complication, type II or unspecified type, not stated as uncontrolled 250.00 ; Anxiety 300.00 and Obesity 278.[address] [address] Sep, [address] [address] Sep, Diabetes mellitus without me ntion of complication, type II or unspecified type, not stated as uncontrolled 250.00 and Anxiety 300.00 [facility] [address] [id number] [address] [place] [address], [place] [address] Sep, [facility] [address] [id number] [address] [place] [id number] Jul, [facility] [address] [id number] [address] [place] [id number] Jul, [facility] [address] [id number] [address] [place] [id number] Jun, [facility] [address] [id number] [address] [place] [address], [place] [address] Jun, [facility] [address] [id number] [address] [place] [id number] May, [facility] [address] [id number] [address] [place] [id number] May, [facility] [address] [id number] [address] [place] [id number] Apr, [facility] [address] [id number] [address] [place] [id number] Apr, [facility] [address] [id number] [address] [place] [id number] Apr, [facility] [address] [id number] [address] [place] [address] Apr, [facility] [address] [id number] [address] [place] [address] Apr, [facility] [address] [id number] [address] [place] [id number] Apr, [facility] [address] [id number] [address] [place] [address] Apr, [facility] [address] [id number] [address] [place] [id number] Apr, [facility] [address] [id number] [address] [place] [address], [place] [address] Apr, [facility] [address] [id number] [address] [place] [address], [place] [address] Apr, [facility] [address] [id number] [address] [place] [address], [place] [address] Apr, [facility] [address] [id number] [address] [place] [address], [place] [address] Feb, [facility] [address] [id number] [address] [place] [address], [place] [address] Feb, [facility] [address] [id number] [address] [place] [address], [place] [address] Dec, [facility] [address] [id number] [address] [place] [address], [place] [address] Dec, 2013 [facility] [address] [id number] [address] [place] [address], [place] [address] Dec, 2013 [facility] [address] [id number] [address] [place] [address], [place] [address] Dec, [facility] [address] [id number] [address] [place] [address], [place] [address] Dec, [facility] [address] [id number] [address] [place] [address], [place] [address] Dec, [facility] [address] [id number] [address] [place] [address], [place] [address] Oct, [facility] [address] [id number] [address] [place] [address], [place] [address] Oct, [facility] [address] [id number] [address] [place] [address], [place] [address] Sep, [facility] [address] [id number] [address] [place] [address], [place] [address] Sep, [facility] [address] [id number] [address] [place] [address], [place] [address] Sep, [facility] [address] [id number] [facility] [address] Sep, [facility] [address] [id number] [address] [place] [address], [place] [address] Sep, [facility] [address] [id number] [address] [place] [address], [place] [address] Sep, [facility] [address] [id number] [address] [place] [address], [place] [address] Sep, [facility] [address] [id number] [address] [place] [address], [place] [address] Sep, [facility] [address] [id number] [address] [place] [address], [place] [address] August, [facility] [address] [id number] [address] [place] [address], [place] [address] August, [facility] [address] [id number] [address] [place] [address], [place] [address] August, [facility] [address] [id number] [address] [place] [address], [place] [address] August, [facility] [address] [id number] [address] [place] [address], [place] [address] August, [facility] [address] [id number] [address] [place] [address], [place] [address] August, [facility] [address] [id number] [address] [place] [address], [place] [address] Jul, [facility] [address] [id number] [address] [place] [address], [place] [address] Jul, [facility] [address] [id number] [address] [place] [address], [place] [address] Jun, [facility] [address] [id number] [address] [place] [address], [place] [address] Jun, [facility] [address] [id number] [address] [place] [address], [place] [address] 06 May, 2012 [facility] [address] [id number] [address] [place] [address], [place] [address] Apr, [facility] [address] [id number] [address] [place] [address], [place] [address] Apr, [facility] [address] [id number] [address] [place] [address], [place] [address] Apr, [facility] [address] [id number] [address] [place] [address], [place] [address] Apr, [facility] [address] [id number] [address] [place] [address], [place] [address] Apr, [facility] [address] [id number] [address] [place] [address], [place] [address] Apr, [facility] [address] [id number] [address] [place] [address], [place] [address] Mar, [facility] [address] [id number] [address] [place] [address], [place] [address] Mar, [facility] [address] [id number] [address] [place] [address], [place] [address] Mar, [facility] [address] [id number] [address] [place] [address], [place] [address] Mar, [facility] [address] [id number] [address] [place] [address], [place] [address] Mar, [facility] [address] [id number] [address] [place] [address], [place] [address] Mar, [facility] [address] [id number] [address] [place] [address], [place] [address] 13 Mar, 2012 [facility] [address] [id number] [address] [place] [address], [place] [address] 13 Mar, 2012 [facility] [address] [id number] [address] [place] [address], [place] [address] 07 Mar, 2012 [facility] [address] [id number] [address] [place] [address] Mar, [facility] [address] [id number] [address] [place] [address] Mar, [facility] [address] [id number] [address] [place] [address] Mar, [facility] [address] [id number] [address] [place] [address] Nov, [facility] [address] [id number] [address] [place] [address] Nov, [facility] [address] [id number] [address] [place] [address] Sep, [facility] [address] [id number] [address] [place] [address] August, [facility] [address] [id number] [address] [place] [address] August, [facility] [address] [id number] [address] [place] [address] August, [facility] [address] [id number] [address] [place] [address] August, [facility] [address] [id number] [address] [place] [address] August, [facility] [address] [id number] [address] [place] [address] Jul, IMMUNIZATIONS No Known Immunizations SOCIAL HISTORY Never Assessed REASON FOR VISIT PLAN OF CARE VITAL SIGNS Height 64 in 2013-10-20 Weight 219.1 lbs 2013-10-20 Temperature 97.6 degrees Fahrenheit 2013-10-20 Heart Rate 88 bpm 2013-10-20 Respiratory Rate 20 2013-10-20 Blood pressure systolic 102 mmHg 2013-10-20 Blood pressure diastolic 68 mmHg 2013-10-20 MEDICATIONS Unknown Medications RESULTS No Results PROCEDURES [...] History surgeries Hospitalization History Abses removed from groan May Hospitalization History miscarriage--over night stay 02/2017
--- OUTSIDE RECORDS SUMMARY | 2019-10-07 12:27 | XMS REPORT ---
Author Author Dano ROSEN [facility] Address [address] [place] [address] Care Team Providers Care Cooperative Education Director Name Role Phone DAISY ROSEN Unavailable PROBLEMS Type Condition ICD9-CM Code XFH87-RR Code Onset Dates Condition S tatus SNOMED Code Problem Anxiety disorder, unspecified F41.9 Active 458543568 Problem Cannabis use disorder, mild, abuse F12.10 Active 23490253 Problem BMI 45.0-49.9, adult Z68.42 Active 166753946 Problem Ganglion of joint M67.40 Active 78 443702 Problem Tobacco use Z72.0 Active 38466699 0 Problem Anxiety F41.9 Active 84488212 Problem Type 2 diabetes mellitus E11.9 Activ e 27372562 Problem Fibrocystic breast, right N60.11 Acti ve 43913029 Problem Hypercholesteremia E78.0 Active 1 8915122 Problem Binge eating disorder F50.81 Active 207693237 Problem Fibrocystic breast, left N60.12 Activ e 59266874 Problem Hypertriglyceridemia E78.1 Active 164916199 Problem Chest pain, unspecified R07.9 Active 62090772 Problem Surveillance of contraceptive injection Z30.42 Active 682887877 Problem Abdominal pain, left upper quadrant R10.12 Active 199757828 Problem Hypothyroid E03.9 Active 41086454 Problem 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 Active 75659362 ALLERGIES No Information ENCOUNTERS Encounter Location Date Diagnosis [facility] [address] [facility] [id number] [address] [place] [address] Jul, Type 2 diabetes mellitus E11 .9 [facility] [address] [facility] [id number] [address] [place] [address] Jun, Type 2 diabetes mellitus E11 .9 ; Onychomycosis B35.1 and Morbid obesity E66.01 [place] [address] [place] [address] 18 May, 2018 Type 2 diabetes mellitus E11 .9 ; Hypothyroid E03.9 ; Tobacco use Z72.0 and Vaginal yeast infection B37.3 [place] [address] [place] [id number] [address] [place] [address] 11 May, 2018 BMI 45.0-49.9, adult Z68.42 [place] [address] [address] 11 May, 2018 BMI 45.0-49.9, adult Z68.42 [place] [address] [address] 07 May, 2018 BMI 45.0-49.9, adult Z68.42 [place] [address] [address] 15 Apr, 2018 BMI 45.0-49.9, adult Z68.42 [place] [address] [address] Mar, [place] [address] [address] Mar, BMI 45.0-49.9, adult Z68.42 [place] [address] [address] Feb, [place] [address] [address] Feb, [place] [address] [address] Feb, BMI 45.0-49.9, adult Z68.42 [place] [address] [place] [id number] [place] [address] Jan, BMI 45.0-49.9, adult Z68.42 [place] [address] [address] Jan, [place] [address] [place] [id number] [address] [place] [address] 24 Dec, 2017 History of miscarriage Z87.5 9 ; Type 2 diabetes mellitus E11.9 ; Hyperglycemia R73.9 ; Yeast vaginitis B37.3 ; BMI 45.0-49.9, adult Z68.42 and Binge eating disorder F50.81 [place] [address] [address] 17 Dec, 2017 BMI 45.0-49.9, adult Z68.42 ; Hypothyroid E03.9 and Type 2 diabetes mellitus E11.9 [place] [address] [address] 07 Dec, 2017 Onychomycosis B35.1 and Type 2 diabetes mellitus with diabetic neuropathy, 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 [place] [address] [address] Oct, Hypertriglyceridemia E78.1 [place] [address] [address] 16 Oct, 2017 Type 2 diabetes mellitus E11 .9 ; Hypercholesteremia E78.0 and Hypothyroid E03.9 [place] [address] [place] [id number] [address] [place] [address] Sep, BMI 45.0-49.9, adult Z68.42 [place] [address] [place] [id number] [address] [place] [address] Sep, Type 2 diabetes mellitus E11 .9 [place] [address] [place] [id number] [address] [place] [address] Sep, [place] [address] [place] [id number] [address] [place] [address] Sep, Type 2 diabetes mellitus E11 .9 [place] [address] [place] [id number] [address] [place] [address] 04 Vu, 2018 Hypothyroid E03.9 ; Type 2 d iabetes mellitus E11.9 ; Toe pain, left M79.675 and BMI 45.0-49.9, adult Z68.42 [place] [address] [address] Jul, [facility] [address] [address] May, Influenza-like illness R69 a nd BMI 40.0-44.9, adult Z68.41 [place] [address] [address] May, Binge eating disorder F50.81 [place] [address] [address] Apr, [place] [address] [address] Apr, Binge eating disorder F50.81 [place] [address] [address] Mar, Binge eating disorder F50.81 [place] [address] [address] Feb, [place] [address] [address] Feb, Diabetes E11.9 ; Binge eatin g disorder F50.81 and BMI 40.0-44.9, adult Z68.41 [place] [address] [address] Jan, Anxiety disorder, unspecifie d F41.9 and Anxiety F41.9 [place] [address] [address] 04 Jan, 2017 Anxiety disorder, unspecifie d F41.9 ; Cannabis use disorder, mild, abuse F12.10 and Adjustment disorder with mixed disturbance of em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 [place] [address] [place] [address] August, Hypothyroid E03.9 [facility] [address] [id number] [address] [place] [address] August, Type 2 diabetes mellitus E11 .9 [facility] [address] [id number] [address] [place] [address] Jun, [facility] [address] [facility] [id number] [address] [place] [address] Jun, Diabetes E11.9 ; Dysuria R30 .0 and Urinary tract infection without hematuria, site unspecified N39.0 [facility] [address] [id number] [address] [place] [address] Jun, [facility] [address] [facility] [id number] [address] [place] [address] May, [facility] [address] [facility] [id number] [address] [place] [address] Mar, [facility] [address] [id number] [address] [place] [address] Mar, Pain of left leg M79.605 [facility] [address] [facility] [id number] [address] [place] [address] Feb, [facility] [address] [facility] [id number] [address] [place] [address] Feb, Type 2 diabetes mellitus E11 .9 [facility] [address] [id number] [address] [place] [address] Jan, [facility] [address] [facility] [id number] [address] [place] [address] Jan, [facility] [address] [facility] [id number] [address] [place] [address] Jan, Discharge of breast N64.52 [facility] [address] [facility] [id number] [address] [place] [address] 03 Oct, 2016 Menorrhagia N92.0 ; Encounte [...] Fibrocystic breast, left N60.12 and Anxiety F41.9 [place] [address] [facility] [id number] [address] [place] [address] Dec, Diabetes E11.9 ; Right foot pain M79.671 ; Left upper quadrant pain R10.12 ; Pain in right leg M79.604 ; Pain of left leg M79.605 ; Other chest pain R07.89 ; Palpitations R00.2 ; Hypothyroid E03.9 ; Discharge of breast N64.52 and Hyperlipidemia, unspecified hyperlipidemia type E78.5 [place] [address] [facility] [id number] [address] [place] [address] Dec, [place] [address] [facility] [id number] [address] [place] [address] Oct, [place] [address] [place] [id number] [address] [place] [address] Oct, [facility] [address] [address] Sep, [facility] [address] [place] [id number] [address] [place] [address] August, [place] [address] [address] August, [facility] [address] [address] Jul, Hypothyroid E03.9 [place] [address] [address] Jun, [place] [address] [address] May, Menorrhagia N92.0 ; Diabetes E11.9 ; Hypothyroid E03.9 and Tobacco abuse Z72.0 [place] [address] [place] [address] May, [place] [address] [address] May, Well woman exam Z01.419 ; BM I 45.0-49.9, adult Z68.42 ; Type 2 diabetes mellitus E11.9 ; Weight loss R63.4 ; Chest pain, unspecified R07.9 ; Hypercholesteremia E78.0 and Routine screening for STI (sexually transmitted infection) Z11.3 [facility] [address] [place] [address] May, [place] [address] [place] [id number] [address] [place] [address] 04 May, 2015 Well woman exam Z01.419 [...] Fibrocystic breast, left N60.12 and Anxiety F41.[address] [address] 04 May, [address] [address] Mar, [address] [address] Feb, [address] [address] Feb, Diabetes E11.9 ; Eustachian tube dysfunction, right H69.81 and Myalgia M79.[address] [address] Feb, [address] [address] Nov, Mastodynia, female 611.[address] [address] Oct, Obesity 278.[address] [address] Oct, Diabetes mellitus without me ntion of complication, type II or unspecified type, not stated as uncontrolled 250.00 ; Anxiety 300.00 and Obesity 278.[address] [address] Sep, [address] [address] Sep, Diabetes mellitus without me ntion of complication, type II or unspecified type, not stated as uncontrolled 250.00 and Anxiety 300.00 [facility] [address] [id number] [address] [place] [address], [place] [address] Sep, [facility] [address] [id number] [address] [place] [address] Jul, [facility] [address] [id number] [address] [place] [address] Jul, [facility] [address] [id number] [address] [place] [address] Jun, [facility] [address] [id number] [address] [place] [address], [place] [address] Jun, [facility] [address] [id number] [address] [place] [address] May, [facility] [address] [id number] [address] [place] [address] May, [facility] [address] [id number] [address] [place] [address] Apr, [facility] [address] [id number] [address] [place] [address] Apr, [facility] [address] [id number] [address] [place] [address] Apr, [facility] [address] [id number] [address] [place] [address] Apr, [facility] [address] [id number] [address] [place] [address] Apr, [facility] [address] [id number] [address] [place] [address] Apr, [facility] [address] [id number] [address] [place] [address] Apr, [facility] [address] [id number] [address] [place] [address] Apr, [facility] [address] [id number] [address] [place] [address], [place] [address] Apr, [facility] [address] [id number] [address] [place] [address], [place] [address] Apr, [facility] [address] [id number] [address] [place] [address], [place] [address] Apr, [facility] [address] [id number] [address] [place] [address], [place] [address] Feb, [facility] [address] [id number] [address] [place] [address], [place] [address] Feb, [facility] [address] [id number] [address] [place] [address], [place] [address] Dec, [facility] [address] [id number] [address] [place] [address], [place] [address] Dec, 2013 [facility] [address] [id number] [address] [place] [address], [place] [address] Dec, 2013 [facility] [address] [id number] [address] [place] [address], [place] [address] Dec, [facility] [address] [id number] [address] [place] [address], [place] [address] Dec, [facility] [address] [id number] [address] [place] [address], [place] [address] Dec, [facility] [address] [id number] [address] [place] [address], [place] [address] Oct, [facility] [address] [id number] [address] [place] [address], [place] [address] Oct, [facility] [address] [id number] [address] [place] [address], [place] [address] Sep, [facility] [address] [id number] [address] [place] [address], [place] [address] Sep, [facility] [address] [id number] [address] [place] [address], [place] [address] Sep, [facility] [address] [id number] [facility] [place] [address] Sep, [facility] [address] [id number] [address] [place] [address], [place] [address] Sep, [facility] [address] [id number] [address] [place] [address], [place] [address] Sep, [facility] [address] [id number] [address] [place] [address], [place] [address] Sep, [facility] [address] [id number] [address] [place] [address], [place] [address] Sep, [facility] [address] [id number] [address] [place] [address], [place] [address] August, [facility] [address] [id number] [address] [place] [address], [place] [address] August, [facility] [address] [id number] [address] [place] [address], [place] [address] August, [facility] [address] [id number] [address] [place] [address], [place] [address] August, [facility] [address] [id number] [address] [place] [address], [place] [address] August, [facility] [address] [id number] [address] [place] [address], [place] [address] August, [facility] [address] [id number] [address] [place] [address], [place] [address] Jul, [facility] [address] [id number] [address] [place] [address], [place] [address] Jul, [facility] [address] [id number] [address] [place] [address], [place] [address] Jun, [facility] [address] [id number] [address] [place] [address], [place] [address] Jun, [facility] [address] [id number] [address] [place] [address], [place] [address] 06 May, 2012 [facility] [address] [id number] [address] [place] [address], [place] [address] Apr, [facility] [address] [id number] [address] [place] [address], [place] [address] Apr, [facility] [address] [id number] [address] [place] [address], [place] [address] Apr, [facility] [address] [id number] [address] [place] [address], [place] [address] Apr, [facility] [address] [id number] [address] [place] [address], [place] [address] Apr, [facility] [address] [id number] [address] [place] [address], [place] [address] Apr, [facility] [address] [id number] [address] [place] [address], [place] [address] Mar, [facility] [address] [id number] [address] [place] [address], [place] [address] Mar, [facility] [address] [id number] [address] [place] [address], [place] [address] Mar, [facility] [address] [id number] [address] [place] [address], [place] [address] Mar, [facility] [address] [id number] [address] [place] [address], [place] [address] Mar, [facility] [address] [id number] [address] [place] [address], [place] [address] Mar, [facility] [address] [id number] [address] [place] [address], [place] [address] 13 Mar, 2012 [facility] [address] [id number] [address] [place] [address], [place] [address] 13 Mar, 2012 [facility] [address] [id number] [address] [place] [address], [place] [address] 07 Mar, 2012 [facility] [address] [id number] [address] [place] [address] Mar, [facility] [address] [id number] [address] [place] [address] Mar, [facility] [address] [id number] [address] [place] [address] Mar, [facility] [address] [id number] [address] [place] [address] Nov, [facility] [address] [id number] [address] [place] [address] Nov, [facility] [address] [id number] [address] [place] [address] Sep, [facility] [address] [id number] [address] [place] [address] August, [facility] [address] [id number] [address] [place] [address] August, [facility] [address] [id number] [address] [place] [address] August, [facility] [address] [id number] [address] [place] [address] August, [facility] [address] [id number] [address] [place] [address] August, [facility] [address] [id number] [address] [place] [address] Jul, IMMUNIZATIONS No Known Immunizations SOCIAL HISTORY [...] History adenoidectomy Surgical History Abses from the [facility] area May 2016 Hospitalization History surgeries Hospitalization History Abses removed from [facility] Feb [address]82 Hospitalization History miscarriage--over night stay 02/2017
--- OUTSIDE RECORDS SUMMARY | 2019-10-07 12:27 | XMS REPORT ---
Author Author Dano ROSEN [facility] Address [address] [place] [address] Care Team Providers Care Safety Representative Name Role Phone DAISY ROSEN Unavailable PROBLEMS Type Condition ICD9-CM Code WJD85-IP Code Onset Dates Condition S tatus SNOMED Code Problem Anxiety disorder, unspecified F41.9 Active 584217804 Problem Cannabis use disorder, mild, abuse F12.10 Active 59236342 Problem BMI 45.0-49.9, adult Z68.42 Active 507726560 Problem Ganglion of joint M67.40 Active 78 823149 Problem Tobacco use Z72.0 Active 78622844 0 Problem Anxiety F41.9 Active 16458621 Problem Type 2 diabetes mellitus E11.9 Activ e 36747526 Problem Fibrocystic breast, right N60.11 Acti ve 08817147 Problem Hypercholesteremia E78.0 Active 1 6104587 Problem Binge eating disorder F50.81 Active 277165478 Problem Fibrocystic breast, left N60.12 Activ e 63394794 Problem Hypertriglyceridemia E78.1 Active 196349346 Problem Chest pain, unspecified R07.9 Active 61082472 Problem Surveillance of contraceptive injection Z30.42 Active 418070751 Problem Abdominal pain, left upper quadrant R10.12 Active 369295678 Problem Hypothyroid E03.9 Active 03835382 Problem 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 Active 92953481 ALLERGIES No Information ENCOUNTERS Encounter Location Date Diagnosis [facility] [address] [facility] [id number] [address] [place] [address] Jul, Type 2 diabetes mellitus E11 .9 [facility] [address] [facility] [id number] [address] [place] [address] Jun, Type 2 diabetes mellitus E11 .9 ; Onychomycosis B35.1 and Morbid obesity E66.01 [place] [id number] [place] [address] 18 May, 2018 Type 2 diabetes mellitus E11 .9 ; Hypothyroid E03.9 ; Tobacco use Z72.0 and Vaginal yeast infection B37.3 [place] [address] [place] [id number] [address] [place] [address] 11 May, 2018 BMI 45.0-49.9, adult Z68.42 [place] [address] [address] 11 May, 2018 BMI 45.0-49.9, adult Z68.42 [place] [address] [address] 07 May, 2018 BMI 45.0-49.9, adult Z68.42 [place] [address] [address] 15 Apr, 2018 BMI 45.0-49.9, adult Z68.42 [place] [address] [address] Mar, [place] [address] [address] Mar, BMI 45.0-49.9, adult Z68.42 [place] [address] [address] Feb, [place] [address] [address] Feb, [place] [address] [address] Feb, BMI 45.0-49.9, adult Z68.42 [place] [address] [place] [id number] [place] [address] Jan, BMI 45.0-49.9, adult Z68.42 [place] [address] [address] Jan, [place] [address] [place] [id number] [address] [place] [address] 24 Dec, 2017 History of miscarriage Z87.5 9 ; Type 2 diabetes mellitus E11.9 ; Hyperglycemia R73.9 ; Yeast vaginitis B37.3 ; BMI 45.0-49.9, adult Z68.42 and Binge eating disorder F50.81 [place] [address] [address] 17 Dec, 2017 BMI 45.0-49.9, adult Z68.42 ; Hypothyroid E03.9 and Type 2 diabetes mellitus E11.9 [place] [address] [address] 07 Dec, 2017 Onychomycosis B35.1 and Type 2 diabetes mellitus with diabetic neuropathy, 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 [place] [address] [address] Oct, Hypertriglyceridemia E78.1 [place] [address] [address] 16 Oct, 2017 Type 2 diabetes mellitus E11 .9 ; Hypercholesteremia E78.0 and Hypothyroid E03.9 [place] [address] [place] [id number] [address] [place] [address] Sep, BMI 45.0-49.9, adult Z68.42 [place] [address] [place] [id number] [address] [place] [address] Sep, Type 2 diabetes mellitus E11 .9 [place] [address] [place] [id number] [address] [place] [address] Sep, [place] [address] [place] [id number] [address] [place] [address] Sep, Type 2 diabetes mellitus E11 .9 [place] [address] [place] [id number] [address] [place] [address] 04 Vu, 2018 Hypothyroid E03.9 ; Type 2 d iabetes mellitus E11.9 ; Toe pain, left M79.675 and BMI 45.0-49.9, adult Z68.42 [place] [address] [address] Jul, [facility] [address] [address] May, Influenza-like illness R69 a nd BMI 40.0-44.9, adult Z68.41 [place] [address] [address] May, Binge eating disorder F50.81 [place] [address] [address] Apr, [place] [address] [address] Apr, Binge eating disorder F50.81 [place] [address] [address] Mar, Binge eating disorder F50.81 [place] [address] [address] Feb, [place] [address] [address] Feb, Diabetes E11.9 ; Binge eatin g disorder F50.81 and BMI 40.0-44.9, adult Z68.41 [place] [address] [address] Jan, Anxiety disorder, unspecifie d F41.9 and Anxiety F41.9 [place] [address] [address] 04 Jan, 2017 Anxiety disorder, unspecifie d F41.9 ; Cannabis use disorder, mild, abuse F12.10 and Adjustment disorder with mixed disturbance of em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 [place] [address] [place] [address] August, Hypothyroid E03.9 [facility] [address] [id number] [address] [place] [address] August, Type 2 diabetes mellitus E11 .9 [facility] [address] [id number] [address] [place] [address] Jun, [facility] [address] [facility] [id number] [address] [place] [address] Jun, Diabetes E11.9 ; Dysuria R30 .0 and Urinary tract infection without hematuria, site unspecified N39.0 [facility] [address] [id number] [address] [place] [address] Jun, [facility] [address] [facility] [id number] [address] [place] [address] May, [facility] [address] [facility] [id number] [address] [place] [address] Mar, [facility] [address] [id number] [address] [place] [address] Mar, Pain of left leg M79.605 [facility] [address] [facility] [id number] [address] [place] [address] Feb, [facility] [address] [facility] [id number] [address] [place] [address] Feb, Type 2 diabetes mellitus E11 .9 [facility] [address] [id number] [address] [place] [address] Jan, [facility] [address] [facility] [id number] [address] [place] [address] Jan, [facility] [address] [facility] [id number] [address] [place] [address] Jan, Discharge of breast N64.52 [facility] [address] [facility] [id number] [address] [place] [address] 03 Oct, 2016 Menorrhagia N92.0 ; Encounte [...] Fibrocystic breast, left N60.12 and Anxiety F41.9 [place] [address] [facility] [id number] [address] [place] [address] Dec, Diabetes E11.9 ; Right foot pain M79.671 ; Left upper quadrant pain R10.12 ; Pain in right leg M79.604 ; Pain of left leg M79.605 ; Other chest pain R07.89 ; Palpitations R00.2 ; Hypothyroid E03.9 ; Discharge of breast N64.52 and Hyperlipidemia, unspecified hyperlipidemia type E78.5 [place] [address] [facility] [id number] [address] [place] [address] Dec, [place] [address] [facility] [id number] [address] [place] [address] Oct, [place] [address] [place] [id number] [address] [place] [address] Oct, [facility] [address] [address] Sep, [facility] [address] [place] [id number] [address] [place] [address] August, [place] [address] [address] August, [facility] [address] [address] Jul, Hypothyroid E03.9 [place] [address] [address] Jun, [place] [address] [address] May, Menorrhagia N92.0 ; Diabetes E11.9 ; Hypothyroid E03.9 and Tobacco abuse Z72.0 [place] [address] [place] [address] May, [place] [address] [address] May, Well woman exam Z01.419 ; BM I 45.0-49.9, adult Z68.42 ; Type 2 diabetes mellitus E11.9 ; Weight loss R63.4 ; Chest pain, unspecified R07.9 ; Hypercholesteremia E78.0 and Routine screening for STI (sexually transmitted infection) Z11.3 [facility] [address] [place] [address] May, [place] [address] [place] [id number] [address] [place] [address] 04 May, 2015 Well woman exam Z01.419 [...] Fibrocystic breast, left N60.12 and Anxiety F41.[address] [address] 04 May, [address] [address] Mar, [address] [address] Feb, [address] [address] Feb, Diabetes E11.9 ; Eustachian tube dysfunction, right H69.81 and Myalgia M79.[address] [address] Feb, [address] [address] Nov, Mastodynia, female 611.[address] [address] Oct, Obesity 278.[address] [address] Oct, Diabetes mellitus without me ntion of complication, type II or unspecified type, not stated as uncontrolled 250.00 ; Anxiety 300.00 and Obesity 278.[address] [address] Sep, [address] [address] Sep, Diabetes mellitus without me ntion of complication, type II or unspecified type, not stated as uncontrolled 250.00 and Anxiety 300.00 [facility] [address] [id number] [address] [place] [address], [place] [address] Sep, [facility] [address] [id number] [address] [place] [address] Jul, [facility] [address] [id number] [address] [place] [address] Jul, [facility] [address] [id number] [address] [place] [address] Jun, [facility] [address] [id number] [address] [place] [address], [place] [address] Jun, [facility] [address] [id number] [address] [place] [address] May, [facility] [address] [id number] [address] [place] [address] May, [facility] [address] [id number] [address] [place] [address] Apr, [facility] [address] [id number] [address] [place] [address] Apr, [facility] [address] [id number] [address] [place] [address] Apr, [facility] [address] [id number] [address] [place] [address] Apr, [facility] [address] [id number] [address] [place] [address] Apr, [facility] [address] [id number] [address] [place] [address] Apr, [facility] [address] [id number] [address] [place] [address] Apr, [facility] [address] [id number] [address] [place] [address] Apr, [facility] [address] [id number] [address] [place] [address], [place] [address] Apr, [facility] [address] [id number] [address] [place] [address], [place] [address] Apr, [facility] [address] [id number] [address] [place] [address], [place] [address] Apr, [facility] [address] [id number] [address] [place] [address], [place] [address] Feb, [facility] [address] [id number] [address] [place] [address], [place] [address] Feb, [facility] [address] [id number] [address] [place] [address], [place] [address] Dec, [facility] [address] [id number] [address] [place] [address], [place] [address] Dec, 2013 [facility] [address] [id number] [address] [place] [address], [place] [address] Dec, 2013 [facility] [address] [id number] [address] [place] [address], [place] [address] Dec, [facility] [address] [id number] [address] [place] [address], [place] [address] Dec, [facility] [address] [id number] [address] [place] [address], [place] [address] Dec, [facility] [address] [id number] [address] [place] [address], [place] [address] Oct, [facility] [address] [id number] [address] [place] [address], [place] [address] Oct, [facility] [address] [id number] [address] [place] [address], [place] [address] Sep, [facility] [address] [id number] [address] [place] [address], [place] [address] Sep, [facility] [address] [id number] [address] [place] [address], [place] [address] Sep, [facility] [address] [id number] [facility] [place] [address] Sep, [facility] [address] [id number] [address] [place] [address], [place] [address] Sep, [facility] [address] [id number] [address] [place] [address], [place] [address] Sep, [facility] [address] [id number] [address] [place] [address], [place] [address] Sep, [facility] [address] [id number] [address] [place] [address], [place] [address] Sep, [facility] [address] [id number] [address] [place] [address], [place] [address] August, [facility] [address] [id number] [address] [place] [address], [place] [address] August, [facility] [address] [id number] [address] [place] [address], [place] [address] August, [facility] [address] [id number] [address] [place] [address], [place] [address] August, [facility] [address] [id number] [address] [place] [address], [place] [address] August, [facility] [address] [id number] [address] [place] [address], [place] [address] August, [facility] [address] [id number] [address] [place] [address], [place] [address] Jul, [facility] [address] [id number] [address] [place] [address], [place] [address] Jul, [facility] [address] [id number] [address] [place] [address], [place] [address] Jun, [facility] [address] [id number] [address] [place] [address], [place] [address] Jun, [facility] [address] [id number] [address] [place] [address], [place] [address] 06 May, 2012 [facility] [address] [id number] [address] [place] [address], [place] [address] Apr, [facility] [address] [id number] [address] [place] [address], [place] [address] Apr, [facility] [address] [id number] [address] [place] [address], [place] [address] Apr, [facility] [address] [id number] [address] [place] [address], [place] [address] Apr, [facility] [address] [id number] [address] [place] [address], [place] [address] Apr, [facility] [address] [id number] [address] [place] [address], [place] [address] Apr, [facility] [address] [id number] [address] [place] [address], [place] [address] Mar, [facility] [address] [id number] [address] [place] [address], [place] [address] Mar, [facility] [address] [id number] [address] [place] [address], [place] [address] Mar, [facility] [address] [id number] [address] [place] [address], [place] [address] Mar, [facility] [address] [id number] [address] [place] [address], [place] [address] Mar, [facility] [address] [id number] [address] [place] [address], [place] [address] Mar, [facility] [address] [id number] [address] [place] [address], [place] [address] 13 Mar, 2012 [facility] [address] [id number] [address] [place] [address], [place] [address] 13 Mar, 2012 [facility] [address] [id number] [address] [place] [address], [place] [address] 07 Mar, 2012 [facility] [address] [id number] [address] [place] [address] Mar, [facility] [address] [id number] [address] [place] [address] Mar, [facility] [address] [id number] [address] [place] [address] Mar, [facility] [address] [id number] [address] [place] [address] Nov, [facility] [address] [id number] [address] [place] [address] Nov, [facility] [address] [id number] [address] [place] [address] Sep, [facility] [address] [id number] [address] [place] [address] August, [facility] [address] [id number] [address] [place] [address] August, [facility] [address] [id number] [address] [place] [address] August, [facility] [address] [id number] [address] [place] [address] August, [facility] [address] [id number] [address] [place] [address] August, [facility] [address] [id number] [address] [place] [address] Jul, IMMUNIZATIONS No Known Immunizations SOCIAL HISTORY [...] History adenoidectomy Surgical History Abses from the [facility] area May 2016 Hospitalization History surgeries Hospitalization History Abses removed from [facility] Feb [address] Hospitalization History miscarriage--over night stay 02/2017
--- OUTSIDE RECORDS SUMMARY | 2019-10-07 12:27 | XMS REPORT ---
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 Name Role Phone DAISY ROSEN Unavailable PROBLEMS Type Condition ICD9-CM Code PPD50-YF Code Onset Dates Condition S tatus SNOMED Code Problem Anxiety disorder, unspecified F41.9 Active 839853685 Problem Cannabis use disorder, mild, abuse F12.10 Active 66941820 Problem BMI 45.0-49.9, adult Z68.42 Active 444486944 Problem Ganglion of joint M67.40 Active 78 179914 Problem Tobacco use Z72.0 Active 67915101 0 Problem Anxiety F41.9 Active 53253301 Problem Type 2 diabetes mellitus E11.9 Activ e 60722073 Problem Fibrocystic breast, right N60.11 Acti ve 73128896 Problem Hypercholesteremia E78.0 Active 1 2452915 Problem Binge eating disorder F50.81 Active 819627848 Problem Fibrocystic breast, left N60.12 Activ e 84926418 Problem Hypertriglyceridemia E78.1 Active 819990586 Problem Chest pain, unspecified R07.9 Active 83777810 Problem Surveillance of contraceptive injection Z30.42 Active 918971336 Problem Abdominal pain, left upper quadrant R10.12 Active 123315975 Problem Hypothyroid E03.9 Active 66860585 Problem 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 Active 68096291 ALLERGIES No Information ENCOUNTERS Encounter Location Date Diagnosis [facility] [place] [address] [facility] [id number] [address] [address] Jul, Type 2 diabetes mellitus E11 .9 [facility] [place] [address] [facility] [id number] [address] [address] Jun, Type 2 diabetes mellitus E11 .9 ; Onychomycosis B35.1 and Morbid obesity E66.01 [place] [address] [id number] 18 May, 2018 Type 2 diabetes mellitus E11 .9 ; Hypothyroid E03.9 ; Tobacco use Z72.0 and Vaginal yeast infection B37.3 [place] [address] [place] [id number] [address] [address] 11 May, 2018 BMI 45.0-49.9, adult Z68.42 [place] [address] [address] 11 May, 2018 BMI 45.0-49.9, adult Z68.42 [place] [address] [address] 07 May, 2018 BMI 45.0-49.9, adult Z68.42 [place] [address] [address] 15 Apr, 2018 BMI 45.0-49.9, adult Z68.42 [place] [address] [address] Mar, [place] [address] [address] Mar, BMI 45.0-49.9, adult Z68.42 [place] [address] [address] Feb, [place] [address] [address] Feb, [place] [address] [address] Feb, BMI 45.0-49.9, adult Z68.42 [place] [address] [place] [id number] [place] [address] Jan, BMI 45.0-49.9, adult Z68.42 [place] [address] [address] Jan, [place] [address] [place] [id number] [address] [address] 24 Dec, 2017 History of miscarriage Z87.5 9 ; Type 2 diabetes mellitus E11.9 ; Hyperglycemia R73.9 ; Yeast vaginitis B37.3 ; BMI 45.0-49.9, adult Z68.42 and Binge eating disorder F50.81 [place] [address] [address] 17 Dec, 2017 BMI 45.0-49.9, adult Z68.42 ; Hypothyroid E03.9 and Type 2 diabetes mellitus E11.9 [place] [address] [address] 07 Dec, 2017 Onychomycosis B35.1 and Type 2 diabetes mellitus with diabetic neuropathy, 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 [place] [address] [address] Oct, Hypertriglyceridemia E78.1 [place] [address] [address] 16 Oct, 2017 Type 2 diabetes mellitus E11 .9 ; Hypercholesteremia E78.0 and Hypothyroid E03.9 [place] [address] [place] [id number] [address] [place] [address] Sep, BMI 45.0-49.9, adult Z68.42 [place] [address] [place] [id number] [address] [address] Sep, Type 2 diabetes mellitus E11 .9 [place] [address] [place] [id number] [address] [address] Sep, [place] [address] [place] [id number] [address] [address] Sep, Type 2 diabetes mellitus E11 .9 [place] [address] [place] [id number] [address] [address] 04 Vu, 2018 Hypothyroid E03.9 ; Type 2 d iabetes mellitus E11.9 ; Toe pain, left M79.675 and BMI 45.0-49.9, adult Z68.42 [place] [address] [address] Jul, [facility] [address] [address] May, Influenza-like illness R69 a nd BMI 40.0-44.9, adult Z68.41 [place] [address] [address] May, Binge eating disorder F50.81 [place] [address] [address] Apr, [place] [address] [address] Apr, Binge eating disorder F50.81 [place] [address] [address] Mar, Binge eating disorder F50.81 [place] [address] [address] Feb, [place] [address] [address] Feb, Diabetes E11.9 ; Binge eatin g disorder F50.81 and BMI 40.0-44.9, adult Z68.41 [place] [address] [address] Jan, Anxiety disorder, unspecifie d F41.9 and Anxiety F41.9 [place] [address] [address] 04 Jan, 2017 Anxiety disorder, unspecifie d F41.9 ; Cannabis use disorder, mild, abuse F12.10 and Adjustment disorder with mixed disturbance of em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 [place] [address] [place] [address] August, Hypothyroid E03.9 [facility] [place] [address] [id number] [address] [place] [address] August, Type 2 diabetes mellitus E11 .9 [facility] [place] [address] [id number] [address] [place] [address] Jun, [facility] [place] [address] [facility] [id number] [address] [place] [address] Jun, Diabetes E11.9 ; Dysuria R30 .0 and Urinary tract infection without hematuria, site unspecified N39.0 [facility] [place] [address] [id number] [address] [place] [address] Jun, [facility] [place] [address] [facility] [id number] [address] [address] May, [facility] [place] [address] [id number] [address] [place] [address] Mar, [facility] [place] [address] [id number] [address] [place] [address] Mar, Pain of left leg M79.605 [facility] [place] [address] [facility] [id number] [address] [place] [address] Feb, [facility] [place] [address] [facility] [id number] [address] [place] [address] Feb, Type 2 diabetes mellitus E11 .9 [facility] [place] [address] [id number] [address] [place] [address] Jan, [facility] [place] [address] [facility] [id number] [address] [address] Jan, [facility] [place] [address] [facility] [id number] [address] [address] Jan, Discharge of breast N64.52 [facility] [place] [address] [facility] [id number] [address] [address] 03 Oct, 2016 Menorrhagia N92.0 ; Encounte [...] Fibrocystic breast, left N60.12 and Anxiety F41.9 [place] [address] [facility] [id number] [address] [place] [address] Dec, Diabetes E11.9 ; Right foot pain M79.671 ; Left upper quadrant pain R10.12 ; Pain in right leg M79.604 ; Pain of left leg M79.605 ; Other chest pain R07.89 ; Palpitations R00.2 ; Hypothyroid E03.9 ; Discharge of breast N64.52 and Hyperlipidemia, unspecified hyperlipidemia type E78.5 [place] [address] [facility] [id number] [address] [address] Dec, [place] [address] [facility] [id number] [address] [id number] Oct, [place] [address] [place] [id number] [address] [id number] Oct, [facility] [place] [address] [address] Sep, [facility] [place] [address] [place] [id number] [address] [place] [phone] August, [place] [address] [address] August, [facility] [place] [address] [address] Jul, Hypothyroid E03.9 [place] [address] [address] Jun, [place] [address] [address] May, Menorrhagia N92.0 ; Diabetes E11.9 ; Hypothyroid E03.9 and Tobacco abuse Z72.0 [place] [address] [place] [address] May, [place] [address] [address] May, Well woman exam Z01.419 ; BM I 45.0-49.9, adult Z68.42 ; Type 2 diabetes mellitus E11.9 ; Weight loss R63.4 ; Chest pain, unspecified R07.9 ; Hypercholesteremia E78.0 and Routine screening for STI (sexually transmitted infection) Z11.3 [facility] [place] [address] [place] [address] May, [place] [address] [place] [id number] [address] [address] 04 May, 2015 Well woman exam Z01.419 [...] Fibrocystic breast, left N60.12 and Anxiety F41.[address] [address] 04 May, [address] [address] Mar, [address] [address] Feb, [address] [address] Feb, Diabetes E11.9 ; Eustachian tube dysfunction, right H69.81 and Myalgia M79.[address] [address] Feb, [address] [address] Nov, Mastodynia, female 611.[address] [address] Oct, Obesity 278.[address] [address] Oct, Diabetes mellitus without me ntion of complication, type II or unspecified type, not stated as uncontrolled 250.00 ; Anxiety 300.00 and Obesity 278.[address] [address] Sep, [address] [address] Sep, Diabetes mellitus without me ntion of complication, type II or unspecified type, not stated as uncontrolled 250.00 and Anxiety 300.00 [facility] [address] [id number] [address] [place] [address], [place] [address] Sep, [facility] [address] [id number] [address] [address] Jul, [facility] [address] [id number] [address] [address] Jul, [facility] [address] [id number] [address] [address] Jun, [facility] [address] [id number] [address] [place] [address], [place] [address] Jun, [facility] [address] [id number] [address] [address] May, [facility] [address] [id number] [address] [address] May, [facility] [address] [id number] [address] [address] Apr, [facility] [address] [id number] [address] [address] Apr, [facility] [address] [id number] [address] [address] Apr, [facility] [address] [id number] [address] [address] Apr, [facility] [address] [id number] [address] [address] Apr, [facility] [address] [id number] [address] [address] Apr, [facility] [address] [id number] [address] [id number] Apr, [facility] [address] [id number] [address] [place] [address] Apr, [facility] [address] [id number] [address] [place] [address], [place] [address] Apr, [facility] [address] [id number] [address] [place] [address], [place] [address] Apr, [facility] [address] [id number] [address] [place] [address], [place] [address] Apr, [facility] [address] [id number] [address] [place] [address], [place] [address] Feb, [facility] [address] [id number] [address] [place] [address], [place] [address] Feb, [facility] [address] [id number] [address] [place] [address], [place] [address] Dec, [facility] [address] [id number] [address] [place] [address], [place] [address] Dec, 2013 [facility] [address] [id number] [address] [place] [address], [place] [address] Dec, 2013 [facility] [address] [id number] [address] [place] [address], [place] [address] Dec, [facility] [address] [id number] [address] [place] [address], [place] [address] Dec, [facility] [address] [id number] [address] [place] [address], [place] [address] Dec, [facility] [address] [id number] [address] [place] [address], [place] [address] Oct, [facility] [address] [id number] [address] [place] [address], [place] [address] Oct, [facility] [address] [id number] [address] [place] [address], [place] [address] Sep, [facility] [address] [id number] [address] [place] [address], [place] [address] Sep, [facility] [address] [id number] [address] [place] [address], [place] [address] Sep, [facility] [address] [id number] [facility] [place] [address] Sep, [facility] [address] [id number] [address] [place] [address], [place] [address] Sep, [facility] [address] [id number] [address] [place] [address], [place] [address] Sep, [facility] [address] [id number] [address] [place] [address], [place] [address] Sep, [facility] [address] [id number] [address] [place] [address], [place] [address] Sep, [facility] [address] [id number] [address] [place] [address], [place] [address] August, [facility] [address] [id number] [address] [place] [address], [place] [address] August, [facility] [address] [id number] [address] [place] [address], [place] [address] August, [facility] [address] [id number] [address] [place] [address], [place] [address] August, [facility] [address] [id number] [address] [place] [address], [place] [address] August, [facility] [address] [id number] [address] [place] [address], [place] [address] August, [facility] [address] [id number] [address] [place] [address], [place] [address] Jul, [facility] [address] [id number] [address] [place] [address], [place] [address] Jul, [facility] [address] [id number] [address] [place] [address], [place] [address] Jun, [facility] [address] [id number] [address] [place] [address], [place] [address] Jun, [facility] [address] [id number] [address] [place] [address], [place] [address] 06 May, 2012 [facility] [address] [id number] [address] [place] [address], [place] [address] Apr, [facility] [address] [id number] [address] [place] [address], [place] [address] Apr, [facility] [address] [id number] [address] [place] [address], [place] [address] Apr, [facility] [address] [id number] [address] [place] [address], [place] [address] Apr, [facility] [address] [id number] [address] [place] [address], [place] [address] Apr, [facility] [address] [id number] [address] [place] [address], [place] [address] Apr, [facility] [address] [id number] [address] [place] [address], [place] [address] Mar, [facility] [address] [id number] [address] [place] [address], [place] [address] Mar, [facility] [address] [id number] [address] [place] [address], [place] [address] Mar, [facility] [address] [id number] [address] [place] [address], [place] [address] Mar, [facility] [address] [id number] [address] [place] [address], [place] [address] Mar, [facility] [address] [id number] [address] [place] [address], [place] [address] Mar, [facility] [address] [id number] [address] [place] [address], [place] [address] 13 Mar, 2012 [facility] [address] [id number] [address] [place] [address], [place] [address] 13 Mar, 2012 [facility] [address] [id number] [address] [place] [address], [place] [address] 07 Mar, 2012 [facility] [place] [address] [id number] [address] [place] [address] Mar, [facility] [place] [address] [id number] [address] [place] [address] Mar, [facility] [place] [address] [id number] [address] [place] [address] Mar, [facility] [place] [address] [id number] [address] [place] [address] Nov, [facility] [place] [address] [id number] [address] [place] [address] Nov, [facility] [place] [address] [id number] [address] [place] [address] Sep, [facility] [place] [address] [id number] [address] [place] [address] August, [facility] [place] [address] [id number] [address] [place] [address] August, [facility] [place] [address] [id number] [address] [place] [address] August, [facility] [place] [address] [id number] [address] [place] [address] August, [facility] [place] [address] [id number] [address] [place] [address] August, [facility] [place] [address] [id number] [address] [place] [address] Jul, IMMUNIZATIONS No Known Immunizations SOCIAL HISTORY [...] History adenoidectomy Surgical History Abses from the [facility] May 2016 Hospitalization History surgeries Hospitalization History Abses removed from [facility] [place] [address] Hospitalization History miscarriage--over night stay 02/2017
--- OUTSIDE RECORDS SUMMARY | 2019-10-07 12:27 | XMS REPORT ---
Author Author Dano ROSEN [facility] Address [address] [place] [address] Care Team Providers Care Loan Review Analyst Name Role Phone DAISY ROSEN Unavailable PROBLEMS Type Condition ICD9-CM Code CJV83-QC Code Onset Dates Condition S tatus SNOMED Code Problem Anxiety disorder, unspecified F41.9 Active 827472803 Problem Cannabis use disorder, mild, abuse F12.10 Active 13257887 Problem BMI 45.0-49.9, adult Z68.42 Active 765954232 Problem Ganglion of joint M67.40 Active 78 310347 Problem Tobacco use Z72.0 Active 46926813 0 Problem Anxiety F41.9 Active 39619236 Problem Type 2 diabetes mellitus E11.9 Activ e 07503669 Problem Fibrocystic breast, right N60.11 Acti ve 89357518 Problem Hypercholesteremia E78.0 Active 1 1481780 Problem Binge eating disorder F50.81 Active 857265065 Problem Fibrocystic breast, left N60.12 Activ e 24503146 Problem Hypertriglyceridemia E78.1 Active 068103563 Problem Chest pain, unspecified R07.9 Active 25737194 Problem Surveillance of contraceptive injection Z30.42 Active 810436617 Problem Abdominal pain, left upper quadrant R10.12 Active 449246530 Problem Hypothyroid E03.9 Active 20561029 Problem 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 Active 77798864 ALLERGIES No Information ENCOUNTERS Encounter Location Date Diagnosis [facility], [place] [id number] [place] [address] Jul, Type 2 diabetes mellitus E11.9 [facility], [place] [address] [id number] [place] [address] Jun, Type 2 diabetes mellitus E11.9 ; Onychom ycosis B35.1 and Morbid obesity E66.01 [address] [address] [address] 18 May, 2018 Type 2 diabetes mellitus E11.9 ; Hypothy roid E03.9 ; Tobacco use Z72.0 and Vaginal yeast infection B37.3 [place] [address] [address] May, BMI 45.0-49.9, adult Z68.42 [place] [address] [address] 11 May, 2018 BMI 45.0-49.9, adult Z68.42 [place] [address] [address] May, BMI 45.0-49.9, adult Z68.42 [place] [address] [address] Apr, BMI 45.0-49.9, adult Z68.42 [place] [address] [address] Mar, [place] [address] [address] Mar, BMI 45.0-49.9, adult Z68.42 [place] [address] [address] Feb, [place] [address] [address] Feb, [place] [address] [address] Feb, BMI 45.0-49.9, adult Z68.42 [place] [address] [address] Jan, BMI 45.0-49.9, adult Z68.42 [place] [address] [address] Jan, [place] [address] [address] 24 Dec, 2017 History of miscarriage Z87.59 ; Type 2 d iabetes mellitus E11.9 ; Hyperglycemia R73.9 ; Yeast vaginitis B37.3 ; BMI 45.0-49.9, adult Z68.42 and Binge eating disorder F50.[address] [address] 17 Dec, 2017 BMI 45.0-49.9, adult Z68.42 ; Hypothyroi d E03.9 and Type 2 diabetes mellitus E11.[address] [address] 07 Dec, 2017 Onychomycosis B35.1 and Type 2 diabetes mellitus with diabetic neuropathy, unspecified whether half-way insulin use E11.[address] [address] Oct, Hypertriglyceridemia E78.[address] [address] 16 Oct, 2017 Type 2 diabetes mellitus E11.9 ; Hyperch olesteremia E78.0 and Hypothyroid E03.[address] [address] Sep, BMI 45.0-49.9, adult Z68.[address] [address] Sep, Type 2 diabetes mellitus E11.9 [place] [address] [address] Sep, [address] [address] Sep, Type 2 diabetes mellitus E11.[address] [address] Sep, Hypothyroid E03.9 ; Type 2 diabetes frances itus E11.9 ; Toe pain, left M79.675 and BMI 45.0-49.9, adult Z68.42 [place] [address] [address] Jul, [facility] [address] [facility] [id number] [place] [address] 23 May, 2017 Influenza-like illness R69 a nd BMI 40.0-44.9, adult Z68.41 [place] [address] [address] 08 May, 2017 Binge eating disorder F50.81 [place] [address] [address] Apr, [place] [address] [address] Apr, Binge eating disorder F50.81 [place] [address] [address] Mar, Binge eating disorder F50.81 [place] [address] [address] Feb, [place] [address] [address] Feb, Diabetes E11.9 ; Binge eating disorder F 50.81 and BMI 40.0-44.9, adult Z68.41 [place] [address] [address] Jan, Anxiety disorder, unspecified F41.9 and Anxiety F41.9 [place] [address] [address] 04 Jan, 2017 Anxiety disorder, unspecified F41.9 ; Ca nnabis use disorder, mild, abuse F12.10 and Adjustment disorder with mixed disturbance of em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 [place] [address] [address] August, Hypothyroid E03.9 [place] [address] [address] August, Type 2 diabetes mellitus E11.9 [place] [address] [address] Jun, [place] [address] [address] Jun, Diabetes E11.9 ; Dysuria R30.0 and Urina ry tract infection without hematuria, site unspecified N39.0 [place] [address] [address] Jun, [place] [address] [address] May, [place] [address] [address] Mar, [place] [address] [address] Mar, Pain of left leg M79.605 [place] [address] [address] Feb, [place] [address] [address] Feb, Type 2 diabetes mellitus E11.9 [place] [address] [address] Jan, [place] [address] [address] Jan, [place] [address] [address] Jan, Discharge of breast N64.52 [place] [address] [address] Jan, Menorrhagia N92.0 ; Encounter for control [...] Fibrocystic breast, left N60.12 and Anxiety F41.9 [place] [address] [address] Dec, Diabetes E11.9 ; Right foot pain M79.671 ; Left upper quadrant pain R10.12 ; Pain in right leg M79.604 ; Pain of left leg M79.605 ; Other chest pain R07.89 ; Palpitations R00.2 ; Hypothyroid E03.9 ; Discharge of breast N64.52 and Hyperlipidemia, unspecified hyperlipidemia type E78.5 [place] [address] [address] Dec, [place] [address] [address] Oct, [place] [address] [address] Oct, [place] [address] [address] Sep, [place] [address] [address] August, [place] [address] [address] August, [place] [address] [address] Jul, Hypothyroid E03.9 [place] [address] [address] Jun, [place] [address] [address] May, Menorrhagia N92.0 ; Diabetes E11.9 ; Hyp othyroid E03.9 and Tobacco abuse Z72.0 [place] [address] [address] May, [place] [address] [address] May, Well woman exam Z01.419 ; BMI 45.0-49.9, adult Z68.42 ; Type 2 diabetes mellitus E11.9 ; Weight loss R63.4 ; Chest pain, unspecified R07.9 ; Hypercholesteremia E78.0 and Routine screening for STI (sexually transmitted infection) Z11.3 [place] [address] [address] 05 May, 2015 [place] [address] [address] 04 May, 2015 Well woman exam Z01.419 [...] Fibrocystic breast, left N60.12 and Anxiety F41.9 [place] [address] [address] May, [facility], [place] [address] [address] Mar, [facility], [place] [address] [address] Feb, [facility], [place] [address] [address] Feb, Diabetes E11.9 ; Eustachian tube dysfunc tion, right H69.81 and Myalgia M79.1 [facility], [place] [address] [address] Feb, [facility] [place] [address] [address] Nov, Mastodynia, female 611.71 [facility], [place] [address] [address] Oct, Obesity 278.00 [facility], [place] [address] [address] Oct, Diabetes mellitus without mention of com plication, type II or unspecified type, not stated as uncontrolled 250.00 ; Anxiety 300.00 and Obesity 278.00 [facility], [place] [address] [address] Sep, [facility], [place] [address] [address] Sep, Diabetes mellitus without mention of com plication, type II or unspecified type, not stated as uncontrolled 250.00 and Anxiety 300.00 [facility], [place] [address] [address] Sep, [facility] [place] [address] [address] Jul, [facility], [place] [address] [address] Jul, [facility] [place] [address] [address] Jun, [facility] [place] [facility] [address] [id number] [place] [address] Jun, [facility] [place] [facility] [address] [id number] [place] [address] May, [facility] [place] [facility] [address] [id number] [place] [address] May, [facility] [place] [facility] [address] [id number] [place] [address] Apr, [facility] [place] [facility] [address] [id number] [place] [address] Apr, [facility] [place] [facility] [address] [id number] [place] [address] Apr, [facility] [place] [facility] [address] [id number] [place] [address] Apr, [facility] [place] [facility] [address] [id number] [place] [address] Apr, [facility] [place] [facility] [address] [id number] [place] [address] Apr, [facility] [place] [facility] [address] [id number] [place] [address] Apr, [facility] [place] [facility] [address] [id number] [place] [address] Apr, [facility] [place] [facility] [address] [id number] [place] [address] Apr, [facility] [place] [facility] [address] [id number] [place] [address] Apr, [facility] [place] [facility] [address] [id number] [place] [address] Apr, [facility] [place] [facility] [address] [id number] [place] [address] Feb, [facility] [place] [facility] [address] [id number] [place] [address] Feb, [facility] [place] [facility] [address] [id number] [place] [address] 12 Dec, 2013 [facility] [place] [facility] [address] [facility] [id number] [place] [address] 12 Dec, 2013 [facility] [place] [facility] [address] [facility] [id number] [facility] [place] [address] Dec, 2013 [facility] [place] [facility] [address] [facility] [id number] [place] [address] Dec, 2013 [facility] [place] [facility] [address] [facility] [id number] [place] [address] Dec, 2013 [facility] [place] [facility] [address] [facility] [id number] [facility] [place] [address] Dec, 2013 [facility] [place] [facility] [address] [id number] [place] [address] Oct, [facility] [place] [facility] [address] [id number] [place] [address] Oct, [facility] [place] [facility] [address] [id number] [place] [address] Sep, [facility] [place] [facility] [address] [facility] [id number] [place] [address] Sep, [facility] [place] [facility] [address] [id number] [place] [address] Sep, [facility] [place] [facility] [address] [id number] [place] [address] Sep, [facility] [place] [facility] [address] [id number] [place] [address] Sep, [facility] [place] [facility] [address] [facility] [id number] [place] [address] Sep, [facility] [place] [facility] [address] [id number] [place] [address] Sep, [facility] [place] [facility] [address] [id number] [place] [address] Sep, [facility] [place] [facility] [address] [id number] [place] [address] August, [facility] [place] [facility] [address] [id number] [place] [address] August, [facility] [place] [facility] [address] [id number] [place] [address] August, [facility] [place] [facility] [address] [id number] [place] [address] August, [facility] [place] [facility] [address] [id number] [place] [address] August, [facility] [place] [facility] [address] [id number] [place] [address] August, [facility] [place] [facility] [address] [id number] [place] [address] Jul, [facility] [place] [facility] [address] [id number] [place] [address] Jul, [facility] [place] [facility] [address] [id number] [place] [address] Jun, [facility] [place] [facility] [address] [id number] [place] [address] Jun, [facility] [place] [facility] [address] [id number] [place] [address] May, [facility] [place] [facility] [address] [id number] [place] [address] Apr, [facility] [place] [facility] [address] [id number] [place] [address] Apr, [facility] [place] [facility] [address] [id number] [place] [address] Apr, [facility] [place] [facility] [address] [id number] [place] [address] Apr, [facility] [place] [facility] [id number] [place] [address] Apr, [facility] [place] [facility] [address] [id number] [place] [address] Apr, [facility] [place] [facility] [address] [id number] [place] [address] Mar, [facility] [place] [facility] [address] [id number] [place] [address] Mar, [facility] [place] [facility] [address] [id number] [place] [address] Mar, [facility] [place] [facility] [address] [id number] [place] [address] Mar, [facility] [place] [facility] [address] [id number] [place] [address] Mar, [facility] [place] [facility] [address] [id number] [place] [address] Mar, [facility] [place] [facility] [address] [id number] [place] [address] Mar, [facility] [place] [facility] [address] [id number] [place] [address] Mar, [facility] [place] [facility] [address] [id number] [place] [address] Mar, [facility] [place] [facility] [address] [id number] [place] [address] Mar, [facility] [place] [facility] [address] [id number] [place] [address] Mar, [facility] [place] [facility] [address] [id number] [place] [address] Mar, [facility] [place] [facility] [address] [id number] [place] [address] Nov, [facility] [place] [facility] [address] [id number] [place] [address] Nov, [facility] [place] [facility] [address] [id number] [place] [address] Sep, [facility] [place] [facility] [address] [id number] [place] [address] August, [facility] [place] [facility] [address] [id number] [place] [address] August, [facility] [place] [facility] [address] [id number] [place] [address] August, [facility] [place] [address] [facility] [id number] [place] [address] August, [facility] [place] [address] [id number] [place] [address] August, [facility] [place] [address] [facility] [id number] [place] [address] Jul, IMMUNIZATIONS No Known Immunizations SOCIAL HISTORY [...] History surgeries Hospitalization History Abses removed from [facility] May Hospitalization History miscarriage--over night stay 02/2017
--- OUTSIDE RECORDS SUMMARY | 2019-10-07 12:28 | XMS REPORT ---
Author Author Dano ROSEN [facility] Address [address] [place] [address] Care Team Providers Care Development Director Name Role Phone DAISY ROSEN Unavailable PROBLEMS Type Condition ICD9-CM Code CDN32-GT Code Onset Dates Condition S tatus SNOMED Code Problem Anxiety disorder, unspecified F41.9 Active 170918324 Problem Cannabis use disorder, mild, abuse F12.10 Active 24592336 Problem BMI 45.0-49.9, adult Z68.42 Active 612194787 Problem Ganglion of joint M67.40 Active 78 300680 Problem Tobacco use Z72.0 Active 31481934 0 Problem Anxiety F41.9 Active 22996484 Problem Type 2 diabetes mellitus E11.9 Activ e 08230921 Problem Fibrocystic breast, right N60.11 Acti ve 62982186 Problem Hypercholesteremia E78.0 Active 1 4491827 Problem Binge eating disorder F50.81 Active 301692439 Problem Fibrocystic breast, left N60.12 Activ e 22157447 Problem Hypertriglyceridemia E78.1 Active 756679629 Problem Chest pain, unspecified R07.9 Active 04485269 Problem Surveillance of contraceptive injection Z30.42 Active 978304355 Problem Abdominal pain, left upper quadrant R10.12 Active 576289426 Problem Hypothyroid E03.9 Active 92404419 Problem 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 [address] [facility] [id number] [address] [place] [id number] Jul, Type 2 diabetes mellitus E11 .9 [facility] [address] [facility] [id number] [address] [place] [id number] Jun, Type 2 diabetes mellitus E11 .9 ; Onychomycosis B35.1 and Morbid obesity E66.01 [place] [id number] [place] [address] 18 May, 2018 Type 2 diabetes mellitus E11 .9 ; Hypothyroid E03.9 ; Tobacco use Z72.0 and Vaginal yeast infection B37.3 [place] [address] [place] [id number] [address] [place] [address] 11 May, 2018 BMI 45.0-49.9, adult Z68.42 [place] [address] [address] 11 May, 2018 BMI 45.0-49.9, adult Z68.42 [place] [address] [address] 07 May, 2018 BMI 45.0-49.9, adult Z68.42 [place] [address] [address] 15 Apr, 2018 BMI 45.0-49.9, adult Z68.42 [place] [address] [address] Mar, [place] [address] [address] Mar, BMI 45.0-49.9, adult Z68.42 [place] [address] [address] Feb, [place] [address] [address] Feb, [place] [address] [address] Feb, BMI 45.0-49.9, adult Z68.42 [place] [address] [place] [id number] [place] [address] Jan, BMI 45.0-49.9, adult Z68.42 [place] [address] [address] Jan, [place] [address] [place] [id number] [address] [place] [address] 24 Dec, 2017 History of miscarriage Z87.5 9 ; Type 2 diabetes mellitus E11.9 ; Hyperglycemia R73.9 ; Yeast vaginitis B37.3 ; BMI 45.0-49.9, adult Z68.42 and Binge eating disorder F50.81 [place] [address] [address] 17 Dec, 2017 BMI 45.0-49.9, adult Z68.42 ; Hypothyroid E03.9 and Type 2 diabetes mellitus E11.9 [place] [address] [address] 07 Dec, 2017 Onychomycosis B35.1 and Type 2 diabetes mellitus with diabetic neuropathy, 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 [place] [address] [address] Oct, Hypertriglyceridemia E78.1 [place] [address] [address] 16 Oct, 2017 Type 2 diabetes mellitus E11 .9 ; Hypercholesteremia E78.0 and Hypothyroid E03.9 [place] [address] [place] [id number] [address] [place] [address] Sep, BMI 45.0-49.9, adult Z68.42 [place] [address] [place] [id number] [address] [place] [id number] Sep, Type 2 diabetes mellitus E11 .9 [place] [address] [place] [id number] [address] [place] [address] Sep, [place] [address] [place] [id number] [address] [place] [address] Sep, Type 2 diabetes mellitus E11 .9 [place] [address] [place] [id number] [address] [place] [id number] 04 Vu, 2018 Hypothyroid E03.9 ; Type 2 d iabetes mellitus E11.9 ; Toe pain, left M79.675 and BMI 45.0-49.9, adult Z68.42 [place] [address] [address] Jul, [facility] WALK IN [facility] [address] [address] May, Influenza-like illness R69 a nd BMI 40.0-44.9, adult Z68.41 [place] [address] [address] May, Binge eating disorder F50.81 [place] [address] [address] Apr, [place] [address] [address] Apr, Binge eating disorder F50.81 [place] [address] [address] Mar, Binge eating disorder F50.81 [place] [address] [address] Feb, [place] [address] [address] Feb, Diabetes E11.9 ; Binge eatin g disorder F50.81 and BMI 40.0-44.9, adult Z68.41 [place] [address] [address] Jan, Anxiety disorder, unspecifie d F41.9 and Anxiety F41.9 [place] [address] [address] 04 Jan, 2017 Anxiety disorder, unspecifie d F41.9 ; Cannabis use disorder, mild, abuse F12.10 and Adjustment disorder with mixed disturbance of em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 [place] [address] [place] [address] August, Hypothyroid E03.9 [facility] [address] [id number] [address] [place] [address] August, Type 2 diabetes mellitus E11 .9 [facility] [address] [id number] [address] [place] [address] Jun, [facility] [address] [facility] [id number] [address] [place] [address] Jun, Diabetes E11.9 ; Dysuria R30 .0 and Urinary tract infection without hematuria, site unspecified N39.0 [facility] [address] [id number] [address] [place] [address] Jun, [facility] [address] [facility] [id number] [address] [place] [address] May, [facility] [address] [id number] [place] [address] Mar, [facility] [address] [id number] [address] [place] [address] Mar, Pain of left leg M79.605 [facility] [address] [facility] [id number] [address] [place] [id number] Feb, [facility] [address] [facility] [id number] [address] [place] [address] Feb, Type 2 diabetes mellitus E11 .9 [facility] [address] [id number] [address] [place] [address] Jan, [facility] [address] [facility] [id number] [address] [place] [address] Jan, [facility] [address] [facility] [id number] [address] [place] [address] Jan, Discharge of breast N64.52 [facility] [address] [facility] [id number] [address] [place] [id number] 03 Oct, 2016 Menorrhagia N92.0 ; Encounte [...] left N60.12 and Anxiety F41.9 [place] [address] [facility] [id number] [address] [place] [address] Dec, Diabetes E11.9 ; Right foot pain M79.671 ; Left upper quadrant pain R10.12 ; Pain in right leg M79.604 ; Pain of left leg M79.605 ; Other chest pain R07.89 ; Palpitations R00.2 ; Hypothyroid E03.9 ; Discharge of breast N64.52 and Hyperlipidemia, unspecified hyperlipidemia type E78.5 [place] [address] [facility] [id number] [address] [place] [address] Dec, [place] [address] [facility] [id number] [address] [place] [phone] Oct, [place] [address] [place] [id number] [address] [place] [address] Oct, [facility] [address] [address] Sep, [facility] [address] [place] [id number] [address] [place] [phone] August, [place] [address] [address] August, [facility] [address] [address] Jul, Hypothyroid E03.9 [place] [address] [address] Jun, [place] [address] [address] May, Menorrhagia N92.0 ; Diabetes E11.9 ; Hypothyroid E03.9 and Tobacco abuse Z72.0 [place] [address] [place] [address] May, [place] [address] [address] May, Well woman exam Z01.419 ; BM I 45.0-49.9, adult Z68.42 ; Type 2 diabetes mellitus E11.9 ; Weight loss R63.4 ; Chest pain, unspecified R07.9 ; Hypercholesteremia E78.0 and Routine screening for STI (sexually transmitted infection) Z11.3 [facility] [address] [place] [address] May, [place] [address] [place] [id number] [address] [place] [address] 04 May, 2015 Well woman exam Z01.419 [...] Fibrocystic breast, left N60.12 and Anxiety F41.[address] [address] 04 May, [address] [address] Mar, [address] [address] Feb, [address] [address] Feb, Diabetes E11.9 ; Eustachian tube dysfunction, right H69.81 and Myalgia M79.[address] [address] Feb, [address] [address] Nov, Mastodynia, female 611.[address] [address] Oct, Obesity 278.[address] [address] Oct, Diabetes mellitus without me ntion of complication, type II or unspecified type, not stated as uncontrolled 250.00 ; Anxiety 300.00 and Obesity 278.[address] [address] Sep, [address] [address] Sep, Diabetes mellitus without me ntion of complication, type II or unspecified type, not stated as uncontrolled 250.00 and Anxiety 300.00 [facility] [address] [id number] [address] [place] [address], [place] [address] Sep, [facility] [address] [id number] [address] [place] [id number] Jul, [facility] [address] [id number] [address] [place] [address] Jul, [facility] [address] [id number] [address] [place] [id number] Jun, [facility] [address] [id number] [address] [place] [address], [place] [address] Jun, [facility] [address] [id number] [address] [place] [id number] May, [facility] [address] [id number] [address] [place] [phone] May, [facility] [address] [id number] [address] [place] [phone] Apr, [facility] [address] [id number] [address] [place] [id number] Apr, [facility] [address] [id number] [address] [place] [id number] Apr, [facility] [address] [id number] [address] [place] [id number] Apr, [facility] [address] [id number] [address] [place] [id number] Apr, [facility] [address] [id number] [address] [place] [id number] Apr, [facility] [address] [id number] [address] [place] [phone] Apr, [facility] [address] [id number] [address] [place] [id number] Apr, [facility] [address] [id number] [address] [place] [address], [place] [address] Apr, [facility] [address] [id number] [address] [place] [address], [place] [address] Apr, [facility] [address] [id number] [address] [place] [address], [place] [address] Apr, [facility] [address] [id number] [address] [place] [address], [place] [address] Feb, [facility] [address] [id number] [address] [place] [address], [place] [address] Feb, [facility] [address] [id number] [address] [place] [address], [place] [address] Dec, [facility] [address] [id number] [address] [place] [address], [place] [address] Dec, 2013 [facility] [address] [id number] [address] [place] [address], [place] [address] Dec, 2013 [facility] [address] [id number] [address] [place] [address], [place] [address] Dec, [facility] [address] [id number] [address] [place] [address], [place] [address] Dec, [facility] [address] [id number] [address] [place] [address], [place] [address] Dec, [facility] [address] [id number] [address] [place] [address], [place] [address] Oct, [facility] [address] [id number] [address] [place] [address], [place] [address] Oct, [facility] [address] [id number] [address] [place] [address], [place] [address] Sep, [facility] [address] [id number] [address] [place] [address], [place] [address] Sep, [facility] [address] [id number] [address] [place] [address], [place] [address] Sep, [facility] [address] [id number] [facility] [address] Sep, [facility] [address] [id number] [address] [place] [address], [place] [address] Sep, [facility] [address] [id number] [address] [place] [address], [place] [address] Sep, [facility] [address] [id number] [address] [place] [address], [place] [address] Sep, [facility] [address] [id number] [address] [place] [address], [place] [address] Sep, [facility] [address] [id number] [address] [place] [address], [place] [address] August, [facility] [address] [id number] [address] [place] [address], [place] [address] August, [facility] [address] [id number] [address] [place] [address], [place] [address] August, [facility] [address] [id number] [address] [place] [address], [place] [address] August, [facility] [address] [id number] [address] [place] [address], [place] [address] August, [facility] [address] [id number] [address] [place] [address], [place] [address] August, [facility] [address] [id number] [address] [place] [address], [place] [address] Jul, [facility] [address] [id number] [address] [place] [address], [place] [address] Jul, [facility] [address] [id number] [address] [place] [address], [place] [address] Jun, [facility] [address] [id number] [address] [place] [address], [place] [address] Jun, [facility] [address] [id number] [address] [place] [address], [place] [address] 06 May, 2012 [facility] [address] [id number] [address] [place] [address], [place] [address] Apr, [facility] [address] [id number] [address] [place] [address], [place] [address] Apr, [facility] [address] [id number] [address] [place] [address], [place] [address] Apr, [facility] [address] [id number] [address] [place] [address], [place] [address] Apr, [facility] [address] [id number] [address] [place] [address], [place] [address] Apr, [facility] [address] [id number] [address] [place] [address], [place] [address] Apr, [facility] [address] [id number] [address] [place] [address], [place] [address] Mar, [facility] [address] [id number] [address] [place] [address], [place] [address] Mar, [facility] [address] [id number] [address] [place] [address], [place] [address] Mar, [facility] [address] [id number] [address] [place] [address], [place] [address] Mar, [facility] [address] [id number] [address] [place] [address], [place] [address] Mar, [facility] [address] [id number] [address] [place] [address], [place] [address] Mar, [facility] [address] [id number] [address] [place] [address], [place] [address] 13 Mar, 2012 [facility] [address] [id number] [address] [place] [address], [place] [address] 13 Mar, 2012 [facility] [address] [id number] [address] [place] [address], [place] [address] [address], [address] [facility] [address] [id number] [address] [place] [address] Mar, [facility] [address] [id number] [address] [place] [phone] Mar, [facility] [address] [id number] [address] [place] [id number] Mar, [facility] [address] [id number] [address] [place] [id number] Nov, [facility] [address] [id number] [address] [place] [address] Nov, [facility] [address] [id number] [address] [place] [id number] Sep, [facility] [address] [id number] [address] [place] [id number] August, [facility] [address] [id number] [address] [place] [address] August, [facility] [address] [id number] [address] [place] [phone] August, [facility] [address] [id number] [address] [place] [address] August, [facility] [address] [id number] [address] [place] [phone] August, [facility] [address] [id number] [address] [place] [address] Jul, IMMUNIZATIONS No Known Immunizations SOCIAL HISTORY [...] History adenoidectomy Surgical History Abses from the [facility] area May 2016 Hospitalization History surgeries Hospitalization History Abses removed from [facility] Feb [address]503 Hospitalization History miscarriage--over night stay 02/2017
--- OUTSIDE RECORDS SUMMARY | 2019-10-07 12:28 | XMS REPORT ---
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 Name Role Phone DAISY ROSEN Unavailable PROBLEMS Type Condition ICD9-CM Code CTG87-ZN Code Onset Dates Condition S tatus SNOMED Code Problem Anxiety disorder, unspecified F41.9 Active 372510879 Problem Cannabis use disorder, mild, abuse F12.10 Active 75372106 Problem BMI 45.0-49.9, adult Z68.42 Active 893841192 Problem Ganglion of joint M67.40 Active 78 372849 Problem Tobacco use Z72.0 Active 75507015 0 Problem Anxiety F41.9 Active 58804900 Problem Type 2 diabetes mellitus E11.9 Activ e 39471920 Problem Fibrocystic breast, right N60.11 Acti ve 71364847 Problem Hypercholesteremia E78.0 Active 1 6779559 Problem Binge eating disorder F50.81 Active 132001481 Problem Fibrocystic breast, left N60.12 Activ e 42917802 Problem Hypertriglyceridemia E78.1 Active 294715072 Problem Chest pain, unspecified R07.9 Active 30570792 Problem Surveillance of contraceptive injection Z30.42 Active 616454836 Problem Abdominal pain, left upper quadrant R10.12 Active 475685731 Problem Hypothyroid E03.9 Active 49837915 Problem 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 Active 63760137 ALLERGIES No Information ENCOUNTERS Encounter Location Date Diagnosis [facility] [address] [facility] [id number] [address] [place] [id number] Jul, Type 2 diabetes mellitus E11 .9 [facility] [address] [facility] [id number] [address] [place] [address] Jun, Type 2 diabetes mellitus E11 .9 ; Onychomycosis B35.1 and Morbid obesity E66.01 [place] [id number] [place] [address] 18 May, 2018 Type 2 diabetes mellitus E11 .9 ; Hypothyroid E03.9 ; Tobacco use Z72.0 and Vaginal yeast infection B37.3 [place] [address] [address] [place] [id number] [address] [place] [address] 11 May, 2018 BMI 45.0-49.9, adult Z68.42 [place] [address] [address] 11 May, 2018 BMI 45.0-49.9, adult Z68.42 [place] [address] [address] 07 May, 2018 BMI 45.0-49.9, adult Z68.42 [place] [address] [address] 15 Apr, 2018 BMI 45.0-49.9, adult Z68.42 [place] [address] [address] Mar, [place] [address] [address] Mar, BMI 45.0-49.9, adult Z68.42 [place] [address] [address] Feb, [place] [address] [address] Feb, [place] [address] [address] Feb, BMI 45.0-49.9, adult Z68.42 [place] [address] [place] [id number] [place] [address] Jan, BMI 45.0-49.9, adult Z68.42 [place] [address] [address] Jan, [place] [address] [place] [id number] [address] [place] [address] 24 Dec, 2017 History of miscarriage Z87.5 9 ; Type 2 diabetes mellitus E11.9 ; Hyperglycemia R73.9 ; Yeast vaginitis B37.3 ; BMI 45.0-49.9, adult Z68.42 and Binge eating disorder F50.81 [place] [address] [address] 17 Dec, 2017 BMI 45.0-49.9, adult Z68.42 ; Hypothyroid E03.9 and Type 2 diabetes mellitus E11.9 [place] [address] [address] 07 Dec, 2017 Onychomycosis B35.1 and Type 2 diabetes mellitus with diabetic neuropathy, unspecified 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 [place] [address] [address] Oct, Hypertriglyceridemia E78.1 [place] [address] [address] 16 Oct, 2017 Type 2 diabetes mellitus E11 .9 ; Hypercholesteremia E78.0 and Hypothyroid E03.9 [place] [address] [place] [id number] [address] [place] [address] Sep, BMI 45.0-49.9, adult Z68.42 [place] [address] [place] [id number] [address] [place] [phone] Sep, Type 2 diabetes mellitus E11 .9 [place] [address] [place] [id number] [address] [place] [address] Sep, [place] [address] [place] [id number] [address] [place] [phone] Sep, Type 2 diabetes mellitus E11 .9 [place] [address] [place] [id number] [address] [place] [id number] 04 Vu, 2018 Hypothyroid E03.9 ; Type 2 d iabetes mellitus E11.9 ; Toe pain, left M79.675 and BMI 45.0-49.9, adult Z68.42 [place] [address] [address] Jul, [facility] [address] [address] May, Influenza-like illness R69 a nd BMI 40.0-44.9, adult Z68.41 [place] [address] [address] May, Binge eating disorder F50.81 [place] [address] [address] Apr, [place] [address] [address] Apr, Binge eating disorder F50.81 [place] [address] [address] Mar, Binge eating disorder F50.81 [place] [address] [address] Feb, [place] [address] [address] Feb, Diabetes E11.9 ; Binge eatin g disorder F50.81 and BMI 40.0-44.9, adult Z68.41 [place] [address] [address] Jan, Anxiety disorder, unspecifie d F41.9 and Anxiety F41.9 [place] [address] [address] 04 Jan, 2017 Anxiety disorder, unspecifie d F41.9 ; Cannabis use disorder, mild, abuse F12.10 and Adjustment disorder with mixed disturbance of em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 [place] [address] [place] [address] August, Hypothyroid E03.9 [facility] [address] [id number] [address] [place] [address] August, Type 2 diabetes mellitus E11 .9 [facility] [address] [id number] [address] [place] [address] Jun, [facility] [address] [facility] [id number] [address] [place] [address] Jun, Diabetes E11.9 ; Dysuria R30 .0 and Urinary tract infection without hematuria, site unspecified N39.0 [facility] [address] [id number] [address] [place] [address] Jun, [facility] [address] [facility] [id number] [address] [place] [address] May, [facility] [address] [facility] [id number] [address] [place] [address] Mar, [facility] [address] [id number] [address] [place] [address] Mar, Pain of left leg M79.605 [facility] [address] [facility] [id number] [address] [place] [address] Feb, [facility] [address] [facility] [id number] [address] [place] [address] Feb, Type 2 diabetes mellitus E11 .9 [facility] [address] [id number] [address] [place] [address] Jan, [facility] [address] [facility] [id number] [address] [place] [address] Jan, [facility] [address] [facility] [id number] [address] [place] [address] Jan, Discharge of breast N64.52 [facility] [address] [facility] [id number] [address] [place] [address] 03 Oct, 2016 Menorrhagia N92.0 ; Encounte [...] Fibrocystic breast, left N60.12 and Anxiety F41.9 [place] [address] [facility] [id number] [address] [place] [address] Dec, Diabetes E11.9 ; Right foot pain M79.671 ; Left upper quadrant pain R10.12 ; Pain in right leg M79.604 ; Pain of left leg M79.605 ; Other chest pain R07.89 ; Palpitations R00.2 ; Hypothyroid E03.9 ; Discharge of breast N64.52 and Hyperlipidemia, unspecified hyperlipidemia type E78.5 [place] [address] [facility] [id number] [address] [place] [address] Dec, [place] [address] [facility] [id number] [address] [place] [address] Oct, [place] [address] [place] [id number] [address] [place] [address] Oct, [facility] [address] [address] Sep, [facility] [address] [place] [id number] [address] [place] [phone] August, [place] [address] [address] August, [facility] [address] [address] Jul, Hypothyroid E03.9 [place] [address] [address] Jun, [place] [address] [address] May, Menorrhagia N92.0 ; Diabetes E11.9 ; Hypothyroid E03.9 and Tobacco abuse Z72.0 [place] [address] [place] [address] May, [place] [address] [address] May, Well woman exam Z01.419 ; BM I 45.0-49.9, adult Z68.42 ; Type 2 diabetes mellitus E11.9 ; Weight loss R63.4 ; Chest pain, unspecified R07.9 ; Hypercholesteremia E78.0 and Routine screening for STI (sexually transmitted infection) Z11.3 [facility] [address] [place] [address] May, [place] [address] [place] [id number] [address] [place] [address] 04 May, 2015 Well woman exam Z01.419 [...] Fibrocystic breast, left N60.12 and Anxiety F41.[address] [address] 04 May, [address] [address] Mar, [address] [address] Feb, [address] [address] Feb, Diabetes E11.9 ; Eustachian tube dysfunction, right H69.81 and Myalgia M79.[address] [address] Feb, [address] [address] Nov, Mastodynia, female 611.[address] [address] Oct, Obesity 278.[address] [address] Oct, Diabetes mellitus without me ntion of complication, type II or unspecified type, not stated as uncontrolled 250.00 ; Anxiety 300.00 and Obesity 278.[address] [address] Sep, [address] [address] Sep, Diabetes mellitus without me ntion of complication, type II or unspecified type, not stated as uncontrolled 250.00 and Anxiety 300.00 [facility] [address] [id number] [address] [place] [address], [place] [address] Sep, [facility] [address] [id number] [address] [place] [address] Jul, [facility] [address] [id number] [address] [place] [address] Jul, [facility] [address] [id number] [address] [place] [address] Jun, [facility] [address] [id number] [address] [place] [address], [place] [address] Jun, [facility] [address] [id number] [address] [place] [address] May, [facility] [address] [id number] [address] [place] [address] May, [facility] [address] [id number] [address] [place] [phone] Apr, [facility] [address] [id number] [address] [place] [address] Apr, [facility] [address] [id number] [address] [place] [phone] Apr, [facility] [address] [id number] [address] [place] [address] Apr, [facility] [address] [id number] [address] [place] [phone] Apr, [facility] [address] [id number] [address] [place] [address] Apr, [facility] [address] [id number] [address] [place] [phone] Apr, [facility] [address] [id number] [address] [place] [address] Apr, [facility] [address] [id number] [address] [place] [address], [place] [address] Apr, [facility] [address] [id number] [address] [place] [address], [place] [address] Apr, [facility] [address] [id number] [address] [place] [address], [place] [address] Apr, [facility] [address] [id number] [address] [place] [address], [place] [address] Feb, [facility] [address] [id number] [address] [place] [address], [place] [address] Feb, [facility] [address] [id number] [address] [place] [address], [place] [address] Dec, [facility] [address] [id number] [address] [place] [address], [place] [address] Dec, 2013 [facility] [address] [id number] [address] [place] [address], [place] [address] Dec, 2013 [facility] [address] [id number] [address] [place] [address], [place] [address] Dec, [facility] [address] [id number] [address] [place] [address], [place] [address] Dec, [facility] [address] [id number] [address] [place] [address], [place] [address] Dec, [facility] [address] [id number] [address] [place] [address], [place] [address] Oct, [facility] [address] [id number] [address] [place] [address], [place] [address] Oct, [facility] [address] [id number] [address] [place] [address], [place] [address] Sep, [facility] [address] [id number] [address] [place] [address], [place] [address] Sep, [facility] [address] [id number] [address] [place] [address], [place] [address] Sep, [facility] [address] [id number] [facility] [place] [address] Sep, [facility] [address] [id number] [address] [place] [address], [place] [address] Sep, [facility] [address] [id number] [address] [place] [address], [place] [address] Sep, [facility] [address] [id number] [address] [place] [address], [place] [address] Sep, [facility] [address] [id number] [address] [place] [address], [place] [address] Sep, [facility] [address] [id number] [address] [place] [address], [place] [address] August, [facility] [address] [id number] [address] [place] [address], [place] [address] August, [facility] [address] [id number] [address] [place] [address], [place] [address] August, [facility] [address] [id number] [address] [place] [address], [place] [address] August, [facility] [address] [id number] [address] [place] [address], [place] [address] August, [facility] [address] [id number] [address] [place] [address], [place] [address] August, [facility] [address] [id number] [address] [place] [address], [place] [address] Jul, [facility] [address] [id number] [address] [place] [address], [place] [address] Jul, [facility] [address] [id number] [address] [place] [address], [place] [address] Jun, [facility] [address] [id number] [address] [place] [address], [place] [address] Jun, [facility] [address] [id number] [address] [place] [address], [place] [address] 06 May, 2012 [facility] [address] [id number] [address] [place] [address], [place] [address] Apr, [facility] [address] [id number] [address] [place] [address], [place] [address] Apr, [facility] [address] [id number] [address] [place] [address], [place] [address] Apr, [facility] [address] [id number] [address] [place] [address], [place] [address] Apr, [facility] [address] [id number] [address] [place] [address], [place] [address] Apr, [facility] [address] [id number] [address] [place] [address], [place] [address] Apr, [facility] [address] [id number] [address] [place] [address], [place] [address] Mar, [facility] [address] [id number] [address] [place] [address], [place] [address] Mar, [facility] [address] [id number] [address] [place] [address], [place] [address] Mar, [facility] [address] [id number] [address] [place] [address], [place] [address] Mar, [facility] [address] [id number] [address] [place] [address], [place] [address] Mar, [facility] [address] [id number] [address] [place] [address], [place] [address] Mar, [facility] [address] [id number] [address] [place] [address], [place] [address] 13 Mar, 2012 [facility] [address] [id number] [address] [place] [address], [place] [address] 13 Mar, 2012 [facility] [address] [id number] [address] [place] [address], [place] [address] 07 Mar, 2012 [facility] [address] [id number] [address] [place] [address] Mar, [facility] [address] [id number] [address] [place] [phone] Mar, [facility] [address] [id number] [address] [place] [address] Mar, [facility] [address] [id number] [address] [place] [address] Nov, [facility] [address] [id number] [address] [place] [phone] Nov, [facility] [address] [id number] [address] [place] [address] Sep, [facility] [address] [id number] [address] [place] [phone] August, [facility] [address] [id number] [address] [place] [phone] August, [facility] [address] [id number] [address] [place] [id number] August, [facility] [address] [id number] [address] [place] [address] August, [facility] [address] [id number] [address] [place] [phone] August, [facility] [address] [id number] [address] [place] [address] Jul, IMMUNIZATIONS No Known Immunizations SOCIAL HISTORY Never Assessed REASON FOR VISIT PLAN OF CARE VITAL SIGNS Height 64 in 2013-12-28 Weight 283.7 lbs 2013-12-28 Temperature 99.1 degrees Fahrenheit 2013-12-28 Heart Rate 88 bpm 2013-12-28 Respiratory Rate 20 2013-12-28 Blood pressure systolic 124 mmHg 2013-12-28 Blood pressure diastolic 74 mmHg 2013-12-28 MEDICATIONS Unknown Medications RESULTS No Results PROCEDURES Procedure Date Ordered Result Body Site C-REACTIVE PROTEIN Dec 28, 2013 RBC SED RATE, NONAUTOMATED Dec 28, 2013 ASSAY THYROID STIM HORMONE Dec 28, 2013 GLYCATED HEMOGLOBIN TEST Dec 28, 2013 VENIPUNCT, ROUTINE* Dec 28, 2013 INSTRUCTIONS MEDICATIONS ADMINISTERED No Known Medications [...]
--- OUTSIDE RECORDS SUMMARY | 2019-10-07 12:28 | XMS REPORT ---
Author Author Dano ROSEN Organization [facility] Address [address] [place] [address] Care Team Providers Care Emergency Man Name Role Phone DAISY ROSEN Unavailable PROBLEMS Type Condition ICD9-CM Code [id number] Code Onset Dates Condition S tatus SNOMED Code Problem Anxiety disorder, unspecified F41.9 Active 931467297 Problem Cannabis use disorder, mild, abuse F12.10 Active 56437618 Problem BMI 45.0-49.9, adult Z68.42 Active 461561490 Problem Ganglion of joint M67.40 Active 78 500717 Problem Tobacco use Z72.0 Active 11838801 0 Problem Anxiety F41.9 Active 76919423 Problem Type 2 diabetes mellitus E11.9 Activ e 44426911 Problem Fibrocystic breast, right N60.11 Acti ve 58098612 Problem Hypercholesteremia E78.0 Active 1 2871961 Problem Binge eating disorder F50.81 Active 793559353 Problem Fibrocystic breast, left N60.12 Activ e 61934413 Problem Hypertriglyceridemia E78.1 Active 375097121 Problem Chest pain, unspecified R07.9 Active 50391709 Problem Surveillance of contraceptive injection Z30.42 Active 493754204 Problem Abdominal pain, left upper quadrant R10.12 Active 762510000 Problem Hypothyroid E03.9 Active 45751270 Problem 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 Active 89686683 ALLERGIES No Information ENCOUNTERS Encounter Location Date Diagnosis [facility] [address] [facility] [id number] [address] [place] [address] Nov, [facility] [address] [facility] [id number] [address] [place] [address] Jul, Type 2 diabetes mellitus E11 .9 [facility] [address] [facility] [id number] [address] [place] [address] Jun, Type 2 diabetes mellitus E11 .9 ; Onychomycosis B35.1 and Morbid obesity E66.01 [place] [address] [address] 18 May, 2018 Type 2 diabetes mellitus E11 .9 ; Hypothyroid E03.9 ; Tobacco use Z72.0 and Vaginal yeast infection B37.3 [place] [address] [address] May, BMI 45.0-49.9, adult Z68.42 [place] [address] [address] 11 May, 2018 BMI 45.0-49.9, adult Z68.42 [place] [address] [address] May, BMI 45.0-49.9, adult Z68.42 [place] [address] [address] Apr, BMI 45.0-49.9, adult Z68.42 [place] [address] [address] Mar, [place] [address] [address] Mar, BMI 45.0-49.9, adult Z68.42 [place] [address] [address] Feb, [place] [address] [address] Feb, [place] [address] [address] Feb, BMI 45.0-49.9, adult Z68.42 [place] [address] [address] Jan, BMI 45.0-49.9, adult Z68.42 [place] [address] [place] [id number] [address] [place] [address] Jan, [place] [address] [place] [id number] [place] [address] 24 Dec, 2017 History of miscarriage Z87.5 9 ; Type 2 diabetes mellitus E11.9 ; Hyperglycemia R73.9 ; Yeast vaginitis B37.3 ; BMI 45.0-49.9, adult Z68.42 and Binge eating disorder F50.81 [place] [address] [address] 17 Dec, 2017 BMI 45.0-49.9, adult Z68.42 ; Hypothyroid E03.9 and Type 2 diabetes mellitus E11.9 [place] [address] [address] Dec, Onychomycosis B35.1 and Type 2 diabetes mellitus with diabetic neuropathy, unspecified whether intermediate manager insulin use E11.40 [place] [address] [address] Oct, Hypertriglyceridemia E78.1 [place] [address] [place] [id number] [place] [address] Oct, Type 2 diabetes mellitus E11 .9 ; Hypercholesteremia E78.0 and Hypothyroid E03.9 [place] [address] [place] [id number] [address] [place] [address] Sep, BMI 45.0-49.9, adult Z68.42 [place] [address] [place] [id number] [address] [place] [address] Sep, Type 2 diabetes mellitus E11 .9 [place] [address] [place] [id number] [address] [place] [address] Sep, [place] [address] [place] [id number] [place] [address] Sep, Type 2 diabetes mellitus E11 .9 [place] [address] [address] Sep, 2018 Hypothyroid E03.9 ; Type 2 d iabetes mellitus E11.9 ; Toe pain, left M79.675 and BMI 45.0-49.9, adult Z68.42 [facility] [address] [address] Jul, [facility] [address] [address] May, Influenza-like illness R69 a nd BMI 40.0-44.9, adult Z68.41 [place] [address] [address] May, Binge eating disorder F50.81 [place] [address] [address] Apr, [place] [address] [address] Apr, Binge eating disorder F50.81 [place] [address] [address] Mar, Binge eating disorder F50.81 [place] [address] [address] 16 Feb, 2017 [place] [address] [address] 15 Feb, 2017 Diabetes E11.9 ; Binge eatin g disorder F50.81 and BMI 40.0-44.9, adult Z68.41 [place] [address] [address] Jan, Anxiety disorder, unspecifie d F41.9 and Anxiety F41.9 [place] [address] [address] Jan, Anxiety disorder, unspecifie d F41.9 ; Cannabis use disorder, mild, abuse F12.10 and Adjustment disorder with mixed disturbance of em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 [place] [address] [place] [id number] [address] [place] [address] August, Hypothyroid E03.9 [facility] [address] [facility] [id number] [address] [place] [address] August, Type 2 diabetes mellitus E11 .9 [facility] [address] [place] [id number] [address] [place] [address] Jun, [facility] [address] [place] [id number] [address] [place] [address] Jun, Diabetes E11.9 ; Dysuria R30 .0 and Urinary tract infection without hematuria, site unspecified N39.0 [place] [address] [place] [id number] [address] [place] [address] Jun, [facility] [address] [place] [id number] [address] [place] [address] May, [facility] [address] [place] [id number] [address] [place] [address] Mar, [place] [address] [place] [id number] [address] [place] [address] Mar, Pain of left leg M79.605 [place] [address] [place] [id number] [address] [place] [address] Feb, [facility] [address] [place] [id number] [address] [place] [address] Feb, Type 2 diabetes mellitus E11 .9 [facility] [address] [facility] [id number] [address] [place] [address] Jan, [place] [address] [place] [id number] [address] [place] [address] Jan, [facility] [address] [place] [id number] [address] [place] [address] Jan, Discharge of breast N64.52 [place] [address] [facility] [id number] [address] [place] [address] Jan, Menorrhagia N92.0 ; Encounte r for control [...] Fibrocystic breast, left N60.12 and Anxiety F41.[address] [id number] [address] [place] [address] Dec, Diabetes E11.9 ; Right foot pain M79.671 ; Left upper quadrant pain R10.12 ; Pain in right leg M79.604 ; Pain of left leg M79.605 ; Other chest pain R07.89 ; Palpitations R00.2 ; Hypothyroid E03.9 ; Discharge of breast N64.52 and Hyperlipidemia, unspecified hyperlipidemia type E78.5 [place] [address] [facility] [id number] [address] [place] [address] Dec, [place] [address] [place] [id number] [address] [place] [address] Oct, [facility] [address] [place] [id number] [address] [place] [address] Oct, [facility] [address] [facility] [id number] [address] [place] [address] Sep, [facility] [address] [address] August, [facility] [address] [address] August, [facility] [address] [address] Jul, Hypothyroid E03.9 [facility] [address] [address] Jun, [facility] [address] [place] [id number] [address] [place] [address] May, Menorrhagia N92.0 ; Diabetes E11.9 ; Hypothyroid E03.9 and Tobacco abuse Z72.0 [facility] [id number] [place] [address] May, [facility] [address] [place] [id number] [address] [place] [address] May, Well woman exam Z01.419 ; BM I 45.0-49.9, adult Z68.42 ; Type 2 diabetes mellitus E11.9 ; Weight loss R63.4 ; Chest pain, unspecified R07.9 ; Hypercholesteremia E78.0 and Routine screening for STI (sexually transmitted infection) Z11.3 [facility] [address] [place] [id number] [address] [place] [address] 05 May, 2015 [facility] [address] [place] [id number] [address] [place] [address] 04 May, 2015 Well woman exam Z01.419 [...] Fibrocystic breast, left N60.12 and Anxiety F41.[address] [address] 04 May, [address] [address] Mar, [address] [address] Feb, [address] [address] Feb, Diabetes E11.9 ; Eustachian tube dysfunction, right H69.81 and Myalgia M79.[address] [address] Feb, [address] [address] Nov, Mastodynia, female 611.[address] [address] Oct, Obesity 278.[address] [address] Oct, Diabetes mellitus without me ntion of complication, type II or unspecified type, not stated as uncontrolled 250.00 ; Anxiety 300.00 and Obesity 278.[address] [address] Sep, [address] [address] Sep, Diabetes mellitus without me ntion of complication, type II or unspecified type, not stated as uncontrolled 250.00 and Anxiety 300.00 [facility] [address] [id number] [address] [place] [address] Sep, [facility] [address] [id number] [address] [place] [address] Jul, [facility] [address] [id number] [address] [place] [address] Jul, [facility] [address] [id number] [address] [place] [address] Jun, [facility] [address] [id number] [address] [place] [address] Jun, [facility] [address] [id number] [address] [place] [address] May, [facility] [address] [id number] [address] [place] [address] May, [facility] [address] [id number] [address] [place] [address] Apr, [facility] [address] [id number] [address] [place] [address] Apr, [facility] [address] [id number] [address] [place] [address] Apr, [facility] [address] [id number] [address] [place] [address] Apr, [facility] [address] [id number] [address] [place] [address] Apr, [facility] [address] [id number] [address] [place] [address] Apr, [facility] [address] [id number] [address] [place] [address] Apr, [facility] [address] [id number] [address] [place] [address], [place] [address] Apr, [facility] [address] [id number] [address] [place] [address], [place] [address] Apr, [facility] [address] [id number] [address] [place] [address], [place] [address] Apr, [facility] [address] [id number] [address] [place] [address], [place] [address] Apr, [facility] [address] [id number] [address] [place] [address], [place] [address] Feb, [facility] [address] [id number] [address] [place] [address], [place] [address] Feb, [facility] [address] [id number] [address] [place] [address], [place] [address] Dec, [facility] [address] [id number] [address] [place] [address], [place] [address] Dec, [facility] [address] [id number] [address] [place] [address], [place] [address] Dec, [facility] [address] [id number] [address] [place] [address], [place] [address] Dec, [facility] [address] [id number] [address] [place] [address], [place] [address] Dec, [facility] [address] [id number] [address] [place] [address], [place] [address] Dec, [facility] [address] [id number] [address] [place] [address], [place] [address] Oct, [facility] [address] [id number] [address] [place] [address], [place] [address] Oct, [facility] [address] [id number] [address] [place] [address], [place] [address] Sep, [facility] [address] [id number] [address] [place] [address], [place] [address] Sep, [facility] [address] [id number] [facility] [place] [address] Sep, [facility] [address] [id number] [address] [place] [address], [place] [address] Sep, [facility] [address] [id number] [address] [place] [address], [place] [address] Sep, [facility] [address] [id number] [address] [place] [address], [place] [address] Sep, [facility] [address] [id number] [address] [place] [address], [place] [address] Sep, [facility] [address] [id number] [address] [place] [address], [place] [address] Sep, [facility] [address] [id number] [address] [place] [address], [place] [address] August, [facility] [address] [id number] [address] [place] [address], [place] [address] August, [facility] [address] [id number] [address] [place] [address], [place] [address] August, [facility] [address] [id number] [address] [place] [address], [place] [address] August, [facility] [address] [id number] [address] [place] [address], [place] [address] August, [facility] [address] [id number] [address] [place] [address], [place] [address] August, [facility] [address] [id number] [address] [place] [address], [place] [address] Jul, [facility] [address] [id number] [address] [place] [address], [place] [address] Jul, [facility] [address] [id number] [address] [place] [address], [place] [address] Jun, [facility] [address] [id number] [address] [place] [address], [place] [address] Jun, [facility] [address] [id number] [address] [place] [address], [place] [address] May, [facility] [address] [id number] [address] [place] [address], [place] [address] Apr, [facility] [address] [id number] [address] [place] [address], [place] [address] Apr, [facility] [address] [id number] [address] [place] [address], [place] [address] Apr, [facility] [address] [id number] [address] [place] [address], [place] [address] Apr, [facility] [address] [id number] [address] [place] [address], [place] [address] Apr, [facility] [address] [id number] [address] [place] [address], [place] [address] Apr, [facility] [address] [id number] [address] [place] [address], [place] [address] Mar, [facility] [address] [id number] [address] [place] [address], [place] [address] Mar, [facility] [address] [id number] [address] [place] [address], [place] [address] Mar, [facility] [address] [id number] [address] [place] [address], [place] [address] Mar, [facility] [address] [id number] [address] [place] [address], [place] [address] Mar, [facility] [address] [id number] [address] [place] [address], [place] [address] Mar, [facility] [address] [id number] [address] [place] [address], [place] [address] Mar, [facility] [address] [id number] [address] [place] [address], [place] [address] Mar, [facility] [address] [id number] [address] [place] [address] Mar, [facility] [address] [id number] [address] [place] [address] Mar, [facility] [address] [id number] [address] [place] [address] Mar, [facility] [address] [id number] [address] [place] [address] Mar, [facility] [address] [id number] [address] [place] [address] Nov, [facility] [address] [id number] [address] [place] [address] Nov, [facility] [address] [id number] [address] [place] [address] Sep, [facility] [address] [id number] [address] [place] [address] August, [facility] [address] [id number] [address] [place] [address] August, [facility] [address] [id number] [address] [place] [address] August, [facility] [address] [id number] [address] [place] [address] August, [facility] [address] [id number] [address] [place] [address] August, [facility] [address] [id number] [address] [place] [address] Jul, IMMUNIZATIONS No Known Immunizations SOCIAL HISTORY [...] Hospitalization History Abses removed from [facility] May Hospitalization History miscarriage--over night stay 02/2017
--- OUTSIDE RECORDS SUMMARY | 2019-10-07 12:28 | XMS REPORT ---
Author Author Dano ROSEN [facility] Address [address] [place] [address] Care Team Providers Care Water Analyst Name Role Phone DAISY ROSEN Unavailable PROBLEMS Type Condition ICD9-CM Code IQU62-HA Code Onset Dates Condition S tatus SNOMED Code Problem Anxiety disorder, unspecified F41.9 Active 459784454 Problem Cannabis use disorder, mild, abuse F12.10 Active 24144625 Problem BMI 45.0-49.9, adult Z68.42 Active 823276428 Problem Ganglion of joint M67.40 Active 78 029226 Problem Tobacco use Z72.0 Active 66983608 0 Problem Anxiety F41.9 Active 11906620 Problem Type 2 diabetes mellitus E11.9 Activ e 38489700 Problem Fibrocystic breast, right N60.11 Acti ve 36669711 Problem Hypercholesteremia E78.0 Active 1 7837479 Problem Binge eating disorder F50.81 Active 932895846 Problem Fibrocystic breast, left N60.12 Activ e 48925411 Problem Hypertriglyceridemia E78.1 Active 345419861 Problem Chest pain, unspecified R07.9 Active 39529426 Problem Surveillance of contraceptive injection Z30.42 Active 616804939 Problem Abdominal pain, left upper quadrant R10.12 Active 514448512 Problem Hypothyroid E03.9 Active 92049444 Problem 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 Active 00795303 ALLERGIES No Information ENCOUNTERS Encounter Location Date Diagnosis [facility] [address] [facility] [id number] [address] [place] [address] Jul, Type 2 diabetes mellitus E11 .9 [facility] [address] [facility] [id number] [address] [place] [address] Jun, Type 2 diabetes mellitus E11 .9 ; Onychomycosis B35.1 and Morbid obesity E66.01 [place] [address] [place] [address] 18 May, 2018 Type 2 diabetes mellitus E11 .9 ; Hypothyroid E03.9 ; Tobacco use Z72.0 and Vaginal yeast infection B37.3 [place] [address] [place] [id number] [address] [place] [address] 11 May, 2018 BMI 45.0-49.9, adult Z68.42 [place] [address] [address] 11 May, 2018 BMI 45.0-49.9, adult Z68.42 [place] [address] [address] 07 May, 2018 BMI 45.0-49.9, adult Z68.42 [place] [address] [address] 15 Apr, 2018 BMI 45.0-49.9, adult Z68.42 [place] [address] [address] Mar, [place] [address] [address] Mar, BMI 45.0-49.9, adult Z68.42 [place] [address] [address] Feb, [place] [address] [address] Feb, [place] [address] [address] Feb, BMI 45.0-49.9, adult Z68.42 [place] [address] [place] [id number] [place] [address] Jan, BMI 45.0-49.9, adult Z68.42 [place] [address] [address] Jan, [place] [address] [place] [id number] [address] [place] [address] 24 Dec, 2017 History of miscarriage Z87.5 9 ; Type 2 diabetes mellitus E11.9 ; Hyperglycemia R73.9 ; Yeast vaginitis B37.3 ; BMI 45.0-49.9, adult Z68.42 and Binge eating disorder F50.81 [place] [address] [address] 17 Dec, 2017 BMI 45.0-49.9, adult Z68.42 ; Hypothyroid E03.9 and Type 2 diabetes mellitus E11.9 [place] [address] [address] 07 Dec, 2017 Onychomycosis B35.1 and Type 2 diabetes mellitus with diabetic neuropathy, 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 [place] [address] [address] Oct, Hypertriglyceridemia E78.1 [place] [address] [address] 16 Oct, 2017 Type 2 diabetes mellitus E11 .9 ; Hypercholesteremia E78.0 and Hypothyroid E03.9 [place] [address] [place] [id number] [address] [place] [address] Sep, BMI 45.0-49.9, adult Z68.42 [place] [address] [place] [id number] [address] [place] [address] Sep, Type 2 diabetes mellitus E11 .9 [place] [address] [place] [id number] [address] [place] [address] Sep, [place] [address] [place] [id number] [address] [place] [address] Sep, Type 2 diabetes mellitus E11 .9 [place] [address] [place] [id number] [address] [place] [address] 04 Vu, 2018 Hypothyroid E03.9 ; Type 2 d iabetes mellitus E11.9 ; Toe pain, left M79.675 and BMI 45.0-49.9, adult Z68.42 [place] [address] [address] Jul, [facility] [address] [address] May, Influenza-like illness R69 a nd BMI 40.0-44.9, adult Z68.41 [place] [address] [address] May, Binge eating disorder F50.81 [place] [address] [address] Apr, [place] [address] [address] Apr, Binge eating disorder F50.81 [place] [address] [address] Mar, Binge eating disorder F50.81 [place] [address] [address] Feb, [place] [address] [address] Feb, Diabetes E11.9 ; Binge eatin g disorder F50.81 and BMI 40.0-44.9, adult Z68.41 [place] [address] [address] Jan, Anxiety disorder, unspecifie d F41.9 and Anxiety F41.9 [place] [address] [address] 04 Jan, 2017 Anxiety disorder, unspecifie d F41.9 ; Cannabis use disorder, mild, abuse F12.10 and Adjustment disorder with mixed disturbance of em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 [place] [address] [place] [address] August, Hypothyroid E03.9 [facility] [address] [id number] [address] [place] [address] August, Type 2 diabetes mellitus E11 .9 [facility] [address] [id number] [address] [place] [address] Jun, [facility] [address] [facility] [id number] [address] [place] [address] Jun, Diabetes E11.9 ; Dysuria R30 .0 and Urinary tract infection without hematuria, site unspecified N39.0 [facility] [address] [id number] [address] [place] [address] Jun, [facility] [address] [facility] [id number] [address] [place] [address] May, [facility] [address] [facility] [id number] [address] [place] [address] Mar, [facility] [address] [id number] [address] [place] [address] Mar, Pain of left leg M79.605 [facility] [address] [facility] [id number] [address] [place] [address] Feb, [facility] [address] [facility] [id number] [address] [place] [address] Feb, Type 2 diabetes mellitus E11 .9 [facility] [address] [id number] [address] [place] [address] Jan, [facility] [address] [facility] [id number] [address] [place] [address] Jan, [facility] [address] [facility] [id number] [address] [place] [address] Jan, Discharge of breast N64.52 [facility] [address] [facility] [id number] [address] [place] [address] 03 Oct, 2016 Menorrhagia N92.0 ; Encounte [...] Fibrocystic breast, left N60.12 and Anxiety F41.9 [place] [address] [facility] [id number] [address] [place] [address] Dec, Diabetes E11.9 ; Right foot pain M79.671 ; Left upper quadrant pain R10.12 ; Pain in right leg M79.604 ; Pain of left leg M79.605 ; Other chest pain R07.89 ; Palpitations R00.2 ; Hypothyroid E03.9 ; Discharge of breast N64.52 and Hyperlipidemia, unspecified hyperlipidemia type E78.5 [place] [address] [facility] [id number] [address] [place] [address] Dec, [place] [address] [facility] [id number] [address] [place] [address] Oct, [place] [address] [place] [id number] [address] [place] [address] Oct, [facility] [address] [address] Sep, [facility] [address] [place] [id number] [address] [place] [address] August, [place] [address] [address] August, [facility] [address] [address] Jul, Hypothyroid E03.9 [place] [address] [address] Jun, [place] [address] [address] May, Menorrhagia N92.0 ; Diabetes E11.9 ; Hypothyroid E03.9 and Tobacco abuse Z72.0 [place] [address] [place] [address] May, [place] [address] [address] May, Well woman exam Z01.419 ; BM I 45.0-49.9, adult Z68.42 ; Type 2 diabetes mellitus E11.9 ; Weight loss R63.4 ; Chest pain, unspecified R07.9 ; Hypercholesteremia E78.0 and Routine screening for STI (sexually transmitted infection) Z11.3 [facility] [address] [place] [address] May, [place] [address] [place] [id number] [address] [place] [address] 04 May, 2015 Well woman exam Z01.419 [...] Fibrocystic breast, left N60.12 and Anxiety F41.[address] [address] 04 May, [address] [address] Mar, [address] [address] Feb, [address] [address] Feb, Diabetes E11.9 ; Eustachian tube dysfunction, right H69.81 and Myalgia M79.[address] [address] Feb, [address] [address] Nov, Mastodynia, female 611.[address] [address] Oct, Obesity 278.[address] [address] Oct, Diabetes mellitus without me ntion of complication, type II or unspecified type, not stated as uncontrolled 250.00 ; Anxiety 300.00 and Obesity 278.[address] [address] Sep, [address] [address] Sep, Diabetes mellitus without me ntion of complication, type II or unspecified type, not stated as uncontrolled 250.00 and Anxiety 300.00 [facility] [address] [id number] [address] [place] [address], [place] [address] Sep, [facility] [address] [id number] [address] [place] [address] Jul, [facility] [address] [id number] [address] [place] [address] Jul, [facility] [address] [id number] [address] [place] [address] Jun, [facility] [address] [id number] [address] [place] [address], [place] [address] Jun, [facility] [address] [id number] [address] [place] [address] May, [facility] [address] [id number] [address] [place] [address] May, [facility] [address] [id number] [address] [place] [address] Apr, [facility] [address] [id number] [address] [place] [address] Apr, [facility] [address] [id number] [address] [place] [address] Apr, [facility] [address] [id number] [address] [place] [address] Apr, [facility] [address] [id number] [address] [place] [address] Apr, [facility] [address] [id number] [address] [place] [address] Apr, [facility] [address] [id number] [address] [place] [address] Apr, [facility] [address] [id number] [address] [place] [address] Apr, [facility] [address] [id number] [address] [place] [address], [place] [address] Apr, [facility] [address] [id number] [address] [place] [address], [place] [address] Apr, [facility] [address] [id number] [address] [place] [address], [place] [address] Apr, [facility] [address] [id number] [address] [place] [address], [place] [address] Feb, [facility] [address] [id number] [address] [place] [address], [place] [address] Feb, [facility] [address] [id number] [address] [place] [address], [place] [address] Dec, [facility] [address] [id number] [address] [place] [address], [place] [address] Dec, 2013 [facility] [address] [id number] [address] [place] [address], [place] [address] Dec, 2013 [facility] [address] [id number] [address] [place] [address], [place] [address] Dec, [facility] [address] [id number] [address] [place] [address], [place] [address] Dec, [facility] [address] [id number] [address] [place] [address], [place] [address] Dec, [facility] [address] [id number] [address] [place] [address], [place] [address] Oct, [facility] [address] [id number] [address] [place] [address], [place] [address] Oct, [facility] [address] [id number] [address] [place] [address], [place] [address] Sep, [facility] [address] [id number] [address] [place] [address], [place] [address] Sep, [facility] [address] [id number] [address] [place] [address], [place] [address] Sep, [facility] [address] [id number] [facility] [place] [address] Sep, [facility] [address] [id number] [address] [place] [address], [place] [address] Sep, [facility] [address] [id number] [address] [place] [address], [place] [address] Sep, [facility] [address] [id number] [address] [place] [address], [place] [address] Sep, [facility] [address] [id number] [address] [place] [address], [place] [address] Sep, [facility] [address] [id number] [address] [place] [address], [place] [address] August, [facility] [address] [id number] [address] [place] [address], [place] [address] August, [facility] [address] [id number] [address] [place] [address], [place] [address] August, [facility] [address] [id number] [address] [place] [address], [place] [address] August, [facility] [address] [id number] [address] [place] [address], [place] [address] August, [facility] [address] [id number] [address] [place] [address], [place] [address] August, [facility] [address] [id number] [address] [place] [address], [place] [address] Jul, [facility] [address] [id number] [address] [place] [address], [place] [address] Jul, [facility] [address] [id number] [address] [place] [address], [place] [address] Jun, [facility] [address] [id number] [address] [place] [address], [place] [address] Jun, [facility] [address] [id number] [address] [place] [address], [place] [address] 06 May, 2012 [facility] [address] [id number] [address] [place] [address], [place] [address] Apr, [facility] [address] [id number] [address] [place] [address], [place] [address] Apr, [facility] [address] [id number] [address] [place] [address], [place] [address] Apr, [facility] [address] [id number] [address] [place] [address], [place] [address] Apr, [facility] [address] [id number] [address] [place] [address], [place] [address] Apr, [facility] [address] [id number] [address] [place] [address], [place] [address] Apr, [facility] [address] [id number] [address] [place] [address], [place] [address] Mar, [facility] [address] [id number] [address] [place] [address], [place] [address] Mar, [facility] [address] [id number] [address] [place] [address], [place] [address] Mar, [facility] [address] [id number] [address] [place] [address], [place] [address] Mar, [facility] [address] [id number] [address] [place] [address], [place] [address] Mar, [facility] [address] [id number] [address] [place] [address], [place] [address] Mar, [facility] [address] [id number] [address] [place] [address], [place] [address] 13 Mar, 2012 [facility] [address] [id number] [address] [place] [address], [place] [address] 13 Mar, 2012 [facility] [address] [id number] [address] [place] [address], [place] [address] 07 Mar, 2012 [facility] [address] [id number] [address] [place] [address] Mar, [facility] [address] [id number] [address] [place] [address] Mar, [facility] [address] [id number] [address] [place] [address] Mar, [facility] [address] [id number] [address] [place] [address] Nov, [facility] [address] [id number] [address] [place] [address] Nov, [facility] [address] [id number] [address] [place] [address] Sep, [facility] [address] [id number] [address] [place] [address] August, [facility] [address] [id number] [address] [place] [address] August, [facility] [address] [id number] [address] [place] [address] August, [facility] [address] [id number] [address] [place] [address] August, [facility] [address] [id number] [address] [place] [address] August, [facility] [address] [id number] [address] [place] [address] Jul, IMMUNIZATIONS No Known Immunizations SOCIAL HISTORY [...] History adenoidectomy Surgical History Abses from the [facility] area May 2016 Hospitalization History surgeries Hospitalization History Abses removed from [facility] Feb 75290 Hospitalization History miscarriage--over night stay 02/2017
--- OUTSIDE RECORDS SUMMARY | 2019-10-07 12:28 | XMS REPORT ---
Author Author Dano ROSEN [facility] Address [address] [place] [address] Care Team Providers Care Loader Demolder Name Role Phone DAISY ROSEN Unavailable PROBLEMS Type Condition ICD9-CM Code PAG71-XG Code Onset Dates Condition S tatus SNOMED Code Problem Anxiety disorder, unspecified F41.9 Active 926825881 Problem Cannabis use disorder, mild, abuse F12.10 Active 34923012 Problem BMI 45.0-49.9, adult Z68.42 Active 032773739 Problem Ganglion of joint M67.40 Active 78 112005 Problem Tobacco use Z72.0 Active 14843411 0 Problem Anxiety F41.9 Active 34417264 Problem Type 2 diabetes mellitus E11.9 Activ e 05981356 Problem Fibrocystic breast, right N60.11 Acti ve 69481243 Problem Hypercholesteremia E78.0 Active 1 9793395 Problem Binge eating disorder F50.81 Active 569087641 Problem Fibrocystic breast, left N60.12 Activ e 30134763 Problem Hypertriglyceridemia E78.1 Active 017973049 Problem Chest pain, unspecified R07.9 Active 34594505 Problem Surveillance of contraceptive injection Z30.42 Active 860928465 Problem Abdominal pain, left upper quadrant R10.12 Active 673066926 Problem Hypothyroid E03.9 Active 78167515 Problem 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 Active 56376786 ALLERGIES No Information ENCOUNTERS Encounter Location Date Diagnosis [facility] [address] [facility] [id number] [address] [place] [address] Jul, Type 2 diabetes mellitus E11 .9 [facility] [address] [facility] [id number] [address] [place] [address] Jun, Type 2 diabetes mellitus E11 .9 ; Onychomycosis B35.1 and Morbid obesity E66.01 [place] [id number] [place] [address] 18 May, 2018 Type 2 diabetes mellitus E11 .9 ; Hypothyroid E03.9 ; Tobacco use Z72.0 and Vaginal yeast infection B37.3 [place] [address] [place] [id number] [address] [place] [address] 11 May, 2018 BMI 45.0-49.9, adult Z68.42 [place] [address] [address] 11 May, 2018 BMI 45.0-49.9, adult Z68.42 [place] [address] [address] 07 May, 2018 BMI 45.0-49.9, adult Z68.42 [place] [address] [address] 15 Apr, 2018 BMI 45.0-49.9, adult Z68.42 [place] [address] [address] Mar, [place] [address] [address] Mar, BMI 45.0-49.9, adult Z68.42 [place] [address] [address] Feb, [place] [address] [address] Feb, [place] [address] [address] Feb, BMI 45.0-49.9, adult Z68.42 [place] [address] [place] [id number] [place] [address] Jan, BMI 45.0-49.9, adult Z68.42 [place] [address] [address] Jan, [place] [address] [place] [id number] [address] [place] [address] 24 Dec, 2017 History of miscarriage Z87.5 9 ; Type 2 diabetes mellitus E11.9 ; Hyperglycemia R73.9 ; Yeast vaginitis B37.3 ; BMI 45.0-49.9, adult Z68.42 and Binge eating disorder F50.81 [place] [address] [address] 17 Dec, 2017 BMI 45.0-49.9, adult Z68.42 ; Hypothyroid E03.9 and Type 2 diabetes mellitus E11.9 [place] [address] [address] 07 Dec, 2017 Onychomycosis B35.1 and Type 2 diabetes mellitus with diabetic neuropathy, unspecified whether roasterman insulin use E11.40 [place] [address] [address] Oct, Hypertriglyceridemia E78.1 [place] [address] [address] 16 Oct, 2017 Type 2 diabetes mellitus E11 .9 ; Hypercholesteremia E78.0 and Hypothyroid E03.9 [place] [address] [place] [id number] [address] [place] [address] Sep, BMI 45.0-49.9, adult Z68.42 [place] [address] [place] [id number] [address] [place] [address] Sep, Type 2 diabetes mellitus E11 .9 [place] [address] [place] [id number] [address] [place] [address] Sep, [place] [address] [place] [id number] [address] [place] [address] Sep, Type 2 diabetes mellitus E11 .9 [place] [address] [place] [id number] [address] [place] [address] 04 Vu, 2018 Hypothyroid E03.9 ; Type 2 d iabetes mellitus E11.9 ; Toe pain, left M79.675 and BMI 45.0-49.9, adult Z68.42 [place] [address] [address] Jul, [facility] [address] [address] May, Influenza-like illness R69 a nd BMI 40.0-44.9, adult Z68.41 [place] [address] [address] May, Binge eating disorder F50.81 [place] [address] [address] Apr, [place] [address] [address] Apr, Binge eating disorder F50.81 [place] [address] [address] Mar, Binge eating disorder F50.81 [place] [address] [address] Feb, [place] [address] [address] Feb, Diabetes E11.9 ; Binge eatin g disorder F50.81 and BMI 40.0-44.9, adult Z68.41 [place] [address] [address] Jan, Anxiety disorder, unspecifie d F41.9 and Anxiety F41.9 [place] [address] [address] 04 Jan, 2017 Anxiety disorder, unspecifie d F41.9 ; Cannabis use disorder, mild, abuse F12.10 and Adjustment disorder with mixed disturbance of em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 [place] [address] [place] [address] August, Hypothyroid E03.9 [facility] [address] [id number] [address] [place] [address] August, Type 2 diabetes mellitus E11 .9 [facility] [address] [id number] [address] [place] [address] Jun, [facility] [address] [facility] [id number] [address] [place] [address] Jun, Diabetes E11.9 ; Dysuria R30 .0 and Urinary tract infection without hematuria, site unspecified N39.0 [facility] [address] [id number] [address] [place] [address] Jun, [facility] [address] [facility] [id number] [address] [place] [address] May, [facility] [address] [id number] [address] [place] [address] Mar, [facility] [address] [id number] [address] [place] [address] Mar, Pain of left leg M79.605 [facility] [address] [facility] [id number] [address] [place] [address] Feb, [facility] [address] [facility] [id number] [address] [place] [address] Feb, Type 2 diabetes mellitus E11 .9 [facility] [address] [id number] [address] [place] [address] Jan, [facility] [address] [facility] [id number] [address] [place] [address] Jan, [facility] [address] [facility] [id number] [address] [place] [address] Jan, Discharge of breast N64.52 [facility] [address] [facility] [id number] [address] [place] [address] 03 Oct, 2016 Menorrhagia N92.0 ; Encounte [...] Fibrocystic breast, left N60.12 and Anxiety F41.9 [place] [address] [facility] [id number] [address] [place] [address] Dec, Diabetes E11.9 ; Right foot pain M79.671 ; Left upper quadrant pain R10.12 ; Pain in right leg M79.604 ; Pain of left leg M79.605 ; Other chest pain R07.89 ; Palpitations R00.2 ; Hypothyroid E03.9 ; Discharge of breast N64.52 and Hyperlipidemia, unspecified hyperlipidemia type E78.5 [place] [address] [facility] [id number] [address] [place] [phone] Dec, [place] [address] [facility] [id number] [address] [place] [address] Oct, [place] [address] [place] [id number] [address] [place] [address] Oct, [facility] [address] [address] Sep, [facility] [address] [place] [id number] [address] [place] [address] August, [place] [address] [address] August, [facility] [address] [address] Jul, Hypothyroid E03.9 [place] [address] [address] Jun, [place] [address] [address] May, Menorrhagia N92.0 ; Diabetes E11.9 ; Hypothyroid E03.9 and Tobacco abuse Z72.0 [place] [address] [place] [address] May, [place] [address] [address] May, Well woman exam Z01.419 ; BM I 45.0-49.9, adult Z68.42 ; Type 2 diabetes mellitus E11.9 ; Weight loss R63.4 ; Chest pain, unspecified R07.9 ; Hypercholesteremia E78.0 and Routine screening for STI (sexually transmitted infection) Z11.3 [facility] [address] [place] [address] May, [place] [address] [place] [id number] [address] [place] [address] 04 May, 2015 Well woman exam Z01.419 [...] Fibrocystic breast, left N60.12 and Anxiety F41.[address] [address] 04 May, [address] [address] Mar, [address] [address] Feb, [address] [address] Feb, Diabetes E11.9 ; Eustachian tube dysfunction, right H69.81 and Myalgia M79.[address] [address] Feb, [address] [address] Nov, Mastodynia, female 611.[address] [address] Oct, Obesity 278.[address] [address] Oct, Diabetes mellitus without me ntion of complication, type II or unspecified type, not stated as uncontrolled 250.00 ; Anxiety 300.00 and Obesity 278.[address] [address] Sep, [address] [address] Sep, Diabetes mellitus without me ntion of complication, type II or unspecified type, not stated as uncontrolled 250.00 and Anxiety 300.00 [facility] [address] [id number] [address] [place] [address], [place] [address] Sep, [facility] [address] [id number] [address] [place] [address] Jul, [facility] [address] [id number] [address] [place] [address] Jul, [facility] [address] [id number] [address] [place] [address] Jun, [facility] [address] [id number] [address] [place] [address], [place] [address] Jun, [facility] [address] [id number] [address] [place] [address] May, [facility] [address] [id number] [address] [place] [address] May, [facility] [address] [id number] [address] [place] [address] Apr, [facility] [address] [id number] [address] [place] [address] Apr, [facility] [address] [id number] [address] [place] [address] Apr, [facility] [address] [id number] [address] [place] [address] Apr, [facility] [address] [id number] [address] [place] [address] Apr, [facility] [address] [id number] [address] [place] [address] Apr, [facility] [address] [id number] [address] [place] [address] Apr, [facility] [address] [id number] [address] [place] [address] Apr, [facility] [address] [id number] [address] [place] [address], [place] [address] Apr, [facility] [address] [id number] [address] [place] [address], [place] [address] Apr, [facility] [address] [id number] [address] [place] [address], [place] [address] Apr, [facility] [address] [id number] [address] [place] [address], [place] [address] Feb, [facility] [address] [id number] [address] [place] [address], [place] [address] Feb, [facility] [address] [id number] [address] [place] [address], [place] [address] Dec, [facility] [address] [id number] [address] [place] [address], [place] [address] Dec, 2013 [facility] [address] [id number] [address] [place] [address], [place] [address] Dec, 2013 [facility] [address] [id number] [address] [place] [address], [place] [address] Dec, [facility] [address] [id number] [address] [place] [address], [place] [address] Dec, [facility] [address] [id number] [address] [place] [address], [place] [address] Dec, [facility] [address] [id number] [address] [place] [address], [place] [address] Oct, [facility] [address] [id number] [address] [place] [address], [place] [address] Oct, [facility] [address] [id number] [address] [place] [address], [place] [address] Sep, [facility] [address] [id number] [address] [place] [address], [place] [address] Sep, [facility] [address] [id number] [address] [place] [address], [place] [address] Sep, [facility] [address] [id number] [facility] [place] [address] Sep, [facility] [address] [id number] [address] [place] [address], [place] [address] Sep, [facility] [address] [id number] [address] [place] [address], [place] [address] Sep, [facility] [address] [id number] [address] [place] [address], [place] [address] Sep, [facility] [address] [id number] [address] [place] [address], [place] [address] Sep, [facility] [address] [id number] [address] [place] [address], [place] [address] August, [facility] [address] [id number] [address] [place] [address], [place] [address] August, [facility] [address] [id number] [address] [place] [address], [place] [address] August, [facility] [address] [id number] [address] [place] [address], [place] [address] August, [facility] [address] [id number] [address] [place] [address], [place] [address] August, [facility] [address] [id number] [address] [place] [address], [place] [address] August, [facility] [address] [id number] [address] [place] [address], [place] [address] Jul, [facility] [address] [id number] [address] [place] [address], [place] [address] Jul, [facility] [address] [id number] [address] [place] [address], [place] [address] Jun, [facility] [address] [id number] [address] [place] [address], [place] [address] Jun, [facility] [address] [id number] [address] [place] [address], [place] [address] 06 May, 2012 [facility] [address] [id number] [address] [place] [address], [place] [address] Apr, [facility] [address] [id number] [address] [place] [address], [place] [address] Apr, [facility] [address] [id number] [address] [place] [address], [place] [address] Apr, [facility] [address] [id number] [address] [place] [address], [place] [address] Apr, [facility] [address] [id number] [address] [place] [address], [place] [address] Apr, [facility] [address] [id number] [address] [place] [address], [place] [address] Apr, [facility] [address] [id number] [address] [place] [address], [place] [address] Mar, [facility] [address] [id number] [address] [place] [address], [place] [address] Mar, [facility] [address] [id number] [address] [place] [address], [place] [address] Mar, [facility] [address] [id number] [address] [place] [address], [place] [address] Mar, [facility] [address] [id number] [address] [place] [address], [place] [address] Mar, [facility] [address] [id number] [address] [place] [address], [place] [address] Mar, [facility] [address] [id number] [address] [place] [address], [place] [address] 13 Mar, 2012 [facility] [address] [id number] [address] [place] [address], [place] [address] 13 Mar, 2012 [facility] [address] [id number] [address] [place] [address], [place] [address] 07 Mar, 2012 [facility] [address] [id number] [address] [place] [address] Mar, [facility] [address] [id number] [address] [place] [address] Mar, [facility] [address] [id number] [address] [place] [address] Mar, [facility] [address] [id number] [address] [place] [address] Nov, [facility] [address] [id number] [address] [place] [address] Nov, [facility] [address] [id number] [address] [place] [address] Sep, [facility] [address] [id number] [address] [place] [address] August, [facility] [address] [id number] [address] [place] [address] August, [facility] [address] [id number] [address] [place] [address] August, [facility] [address] [id number] [address] [place] [address] August, [facility] [address] [id number] [address] [place] [address] August, [facility] [address] [id number] [address] [place] [address] Jul, IMMUNIZATIONS No Known Immunizations SOCIAL HISTORY [...] History adenoidectomy Surgical History Abses from the [facility] area May 2016 Hospitalization History surgeries Hospitalization History Abses removed from [facility] Feb [address] Hospitalization History miscarriage--over night stay 02/2017
--- OUTSIDE RECORDS SUMMARY | 2019-10-07 12:28 | XMS REPORT ---
Author Author Dano Humphrey [facility] Address [address] [place] [address] Care Team Providers Care Political Science Faculty Member Name Role Phone MARVIN Humphrey Unavailable PROBLEMS Type Condition ICD9-CM Code ZOX81-FF Code Onset Dates Condition S tatus SNOMED Code Problem Anxiety disorder, unspecified F41.9 Active 946739499 Problem Cannabis use disorder, mild, abuse F12.10 Active 97306398 Problem BMI 45.0-49.9, adult Z68.42 Active 845224197 Problem Ganglion of joint M67.40 Active 78 844714 Problem Tobacco use Z72.0 Active 60502798 0 Problem Anxiety F41.9 Active 37206990 Problem Type 2 diabetes mellitus E11.9 Activ e 50384990 Problem Fibrocystic breast, right N60.11 Acti ve 44776881 Problem Hypercholesteremia E78.0 Active 1 5671645 Problem Binge eating disorder F50.81 Active 082812594 Problem Fibrocystic breast, left N60.12 Activ e 71802569 Problem Hypertriglyceridemia E78.1 Active 412607851 Problem Chest pain, unspecified R07.9 Active 18231551 Problem Surveillance of contraceptive injection Z30.42 Active 469130375 Problem Abdominal pain, left upper quadrant R10.12 Active 036066598 Problem Hypothyroid E03.9 Active 61659170 Problem 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 Active 21777535 ALLERGIES No Information ENCOUNTERS Encounter Location Date Diagnosis [facility] [address] [facility] [id number] [address] [place] [address] Nov, [facility] [address] [facility] [id number] [address] [place] [address] Jul, Type 2 diabetes mellitus E11 .9 [facility] [address] [facility] [id number] [address] [place] [address] Jun, Type 2 diabetes mellitus E11 .9 ; Onychomycosis B35.1 and Morbid obesity E66.01 [place] [address] [address] May, Type 2 diabetes mellitus E11 .9 ; Hypothyroid E03.9 ; Tobacco use Z72.0 and Vaginal yeast infection B37.3 [place] [address] [address] May, BMI 45.0-49.9, adult Z68.42 [place] [address] [address] 11 May, 2018 BMI 45.0-49.9, adult Z68.42 [place] [address] [address] May, BMI 45.0-49.9, adult Z68.42 [place] [address] [address] Apr, BMI 45.0-49.9, adult Z68.42 [place] [address] [address] Mar, [place] [address] [address] Mar, BMI 45.0-49.9, adult Z68.42 [place] [address] [place] [id number] [address] [place] [address] Feb, [place] [address] [address] Feb, [place] [address] [address] Feb, BMI 45.0-49.9, adult Z68.42 [place] [address] [address] Jan, BMI 45.0-49.9, adult Z68.42 [place] [address] [place] [id number] [address] [place] [address] Jan, [place] [address] [place] [id number] [address] [place] [address] 24 Dec, 2017 History of miscarriage Z87.5 9 ; Type 2 diabetes mellitus E11.9 ; Hyperglycemia R73.9 ; Yeast vaginitis B37.3 ; BMI 45.0-49.9, adult Z68.42 and Binge eating disorder F50.81 [place] [address] [place] [id number] [place] [address] 17 Dec, 2017 BMI 45.0-49.9, adult Z68.42 ; Hypothyroid E03.9 and Type 2 diabetes mellitus E11.9 [place] [address] [address] Dec, Onychomycosis B35.1 and Type 2 diabetes mellitus with diabetic neuropathy, unspecified whether manager long term care insulin use E11.40 [place] [address] [place] [id number] [address] [place] [address] Oct, Hypertriglyceridemia E78.1 [place] [address] [place] [id number] [place] [address] 16 Oct, 2017 Type 2 diabetes mellitus E11 .9 ; Hypercholesteremia E78.0 and Hypothyroid E03.9 [place] [address] [place] [id number] [address] [place] [address] Sep, BMI 45.0-49.9, adult Z68.42 [place] [address] [place] [id number] [address] [place] [address] Sep, Type 2 diabetes mellitus E11 .9 [place] [address] [place] [id number] [address] [place] [address] Sep, [place] [address] [place] [id number] [address] [place] [address] Sep, Type 2 diabetes mellitus E11 .9 [place] [address] [place] [id number] [address] [place] [address] Sep, Hypothyroid E03.9 ; Type 2 d iabetes mellitus E11.9 ; Toe pain, left M79.675 and BMI 45.0-49.9, adult Z68.42 [facility] [address] [address] Jul, [facility] [address] [address] May, Influenza-like illness R69 a nd BMI 40.0-44.9, adult Z68.41 [place] [address] [address] 08 May, 2017 Binge eating disorder F50.81 [place] [address] [address] Apr, [place] [address] [address] Apr, Binge eating disorder F50.81 [place] [address] [address] Mar, Binge eating disorder F50.81 [place] [address] [address] 16 Feb, 2017 [place] [address] [address] 15 Feb, 2017 Diabetes E11.9 ; Binge eatin g disorder F50.81 and BMI 40.0-44.9, adult Z68.41 [place] [address] [address] Jan, Anxiety disorder, unspecifie d F41.9 and Anxiety F41.9 [place] [address] [place] [id number] [address] [place] [address] 04 Jan, 2017 Anxiety disorder, unspecifie d F41.9 ; Cannabis use disorder, mild, abuse F12.10 and Adjustment disorder with mixed disturbance of em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 [place] [address] [facility] [id number] [address] [place] [address] August, Hypothyroid E03.9 [facility] [address] [facility] [id number] [address] [place] [address] August, Type 2 diabetes mellitus E11 .9 [place] [address] [facility] [id number] [address] [place] [address] Jun, [place] [address] [place] [id number] [address] [place] [address] Jun, Diabetes E11.9 ; Dysuria R30 .0 and Urinary tract infection without hematuria, site unspecified N39.0 [place] [address] [place] [id number] [address] [place] [address] Jun, [place] [address] [facility] [id number] [address] [place] [address] May, [place] [address] [facility] [id number] [address] [place] [address] Mar, [place] [address] [place] [id number] [address] [place] [address] Mar, Pain of left leg M79.605 [place] [address] [place] [id number] [address] [place] [address] Feb, [place] [address] [place] [id number] [address] [place] [address] Feb, Type 2 diabetes mellitus E11 .9 [place] [address] [facility] [id number] [address] [place] [address] Jan, [place] [address] [place] [id number] [address] [place] [address] Jan, [place] [address] [place] [id number] [address] [place] [address] Jan, Discharge of breast N64.52 [facility] [address] [facility] [id number] [address] [place] [address] Jan, Menorrhagia N92.0 ; Encounte r for [...] Fibrocystic breast, left N60.12 and Anxiety F41.9 [place] [address] [facility] [id number] [address] [place] [address] Dec, Diabetes E11.9 ; Right foot pain M79.671 ; Left upper quadrant pain R10.12 ; Pain in right leg M79.604 ; Pain of left leg M79.605 ; Other chest pain R07.89 ; Palpitations R00.2 ; Hypothyroid E03.9 ; Discharge of breast N64.52 and Hyperlipidemia, unspecified hyperlipidemia type E78.5 [place] [address] [facility] [id number] [address] [place] [address] Dec, [place] [address] [facility] [id number] [address] [place] [address] Oct, [facility] [address] [facility] [id number] [address] [place] [address] Oct, [facility] [address] [facility] [id number] [address] [place] [address] Sep, [facility] [address] [facility] [id number] [place] [address] August, [facility] [address] [facility] [id number] [address] [place] [address] August, [facility] [address] [facility] [id number] [place] [address] Jul, Hypothyroid E03.9 [facility] [address] [place] [id number] [place] [address] Jun, [facility] [address] [place] [id number] [address] [place] [address] May, Menorrhagia N92.0 ; Diabetes E11.9 ; Hypothyroid E03.9 and Tobacco abuse Z72.0 [facility] [address] [place] [id number] [address] [place] [address] May, [facility] [address] [place] [id number] [address] [place] [address] May, Well woman exam Z01.419 ; BM I 45.0-49.9, adult Z68.42 ; Type 2 diabetes mellitus E11.9 ; Weight loss R63.4 ; Chest pain, unspecified R07.9 ; Hypercholesteremia E78.0 and Routine screening for STI (sexually transmitted infection) Z11.3 [facility] [address] [facility] [id number] [address] [place] [address] May, [facility] [address] [place] [id number] [address] [place] [address] May, Well woman exam Z01.419 ; En counter [...] Fibrocystic breast, left N60.12 and Anxiety F41.[address] [address] 04 May, [address] [address] Mar, [address] [address] Feb, [address] [address] Feb, Diabetes E11.9 ; Eustachian tube dysfunction, right H69.81 and Myalgia M79.[address] [address] Feb, [address] [address] Nov, Mastodynia, female 611.[address] [address] Oct, Obesity 278.[address] [address] Oct, Diabetes mellitus without me ntion of complication, type II or unspecified type, not stated as uncontrolled 250.00 ; Anxiety 300.00 and Obesity 278.[address] [address] Sep, [address] [place] [address] Sep, Diabetes mellitus without me ntion of complication, type II or unspecified type, not stated as uncontrolled 250.00 and Anxiety 300.00 [facility] [address] [id number] [address] [place] [address] Sep, [facility] [address] [id number] [address] [place] [address] Jul, [facility] [address] [id number] [address] [place] [address] Jul, [facility] [address] [id number] [address] [place] [address] Jun, [facility] [address] [id number] [address] [place] [address] Jun, [facility] [address] [id number] [address] [place] [address] May, [facility] [address] [id number] [address] [place] [address] May, [facility] [address] [id number] [address] [place] [address] Apr, [facility] [address] [id number] [address] [place] [address] Apr, [facility] [address] [id number] [address] [place] [address] Apr, [facility] [address] [id number] [address] [place] [address] Apr, [facility] [address] [id number] [address] [place] [address] Apr, [facility] [address] [id number] [address] [place] [address] Apr, [facility] [address] [id number] [address] [place] [address] Apr, [facility] [place] [facility] [address] [id number] [address] [place] [address], [place] [address] Apr, [facility] [address] [id number] [address] [place] [address], [place] [address] Apr, [facility] [address] [id number] [address] [place] [address], [place] [address] Apr, [facility] [address] [id number] [address] [place] [address], [place] [address] Apr, [facility] [address] [id number] [address] [place] [address], [place] [address] Feb, [facility] [address] [id number] [address] [place] [address], [place] [address] Feb, [facility] [address] [id number] [address] [place] [address], [place] [address] Dec, [facility] [address] [id number] [address] [place] [address], [place] [address] Dec, [facility] [address] [id number] [address] [place] [address], [place] [address] Dec, [facility] [address] [id number] [address] [place] [address], [place] [address] Dec, [facility] [address] [id number] [address] [place] [address], [place] [address] Dec, [facility] [place] [facility] [address] [id number] [address] [place] [address], [place] [address] Dec, [facility] [place] [facility] [address] [id number] [address] [place] [address], [place] [address] Oct, [facility] [place] [facility] [address] [id number] [address] [place] [address], [place] [address] Oct, [facility] [place] [facility] [address] [id number] [address] [place] [address], [place] [address] Sep, [facility] [place] [facility] [address] [id number] [address] [place] [address], [place] [address] Sep, [facility] [address] [id number] [facility] [place] [address] Sep, [facility] [place] [facility] [address] [id number] [address] [place] [address], [place] [address] Sep, [facility] [address] [id number] [address] [place] [address], [place] [address] Sep, [facility] [place] [facility] [address] [id number] [address] [place] [address], [place] [address] Sep, [facility] [address] [id number] [address] [place] [address], [place] [address] Sep, [facility] [address] [id number] [address] [place] [address], [place] [address] Sep, [facility] [address] [id number] [address] [place] [address], [place] [address] August, [facility] [place] [facility] [address] [id number] [address] [place] [address], [place] [address] August, [facility] [address] [id number] [address] [place] [address], [place] [address] August, [facility] [place] [facility] [address] [id number] [address] [place] [address], [place] [address] August, [facility] [address] [id number] [address] [place] [address], [place] [address] August, [facility] [place] [facility] [address] [id number] [address] [place] [address], [place] [address] August, [facility] [place] [facility] [address] [id number] [address] [place] [address], [place] [address] Jul, [facility] [place] [facility] [address] [id number] [address] [place] [address], [place] [address] Jul, [facility] [place] [facility] [address] [id number] [address] [place] [address], [place] [address] Jun, [facility] [place] [facility] [address] [id number] [address] [place] [address], [place] [address] Jun, [facility] [address] [id number] [address] [place] [address], [place] [address] May, [facility] [address] [id number] [address] [place] [address], [place] [address] Apr, [facility] [address] [id number] [address] [place] [address], [place] [address] 16 Apr, 2012 [facility] [address] [id number] [address] [place] [address], [place] [address] Apr, [facility] [address] [id number] [address] [place] [address], [place] [address] Apr, [facility] [address] [id number] [address] [place] [address], [place] [address] Apr, [facility] [address] [id number] [address] [place] [address], [place] [address] Apr, [facility] [address] [id number] [address] [place] [address], [place] [address] Mar, [facility] [address] [id number] [address] [place] [address], [place] [address] Mar, [facility] [address] [id number] [address] [place] [address], [place] [address] Mar, [facility] [address] [id number] [address] [place] [address], [place] [address] Mar, [facility] [address] [id number] [address] [place] [address], [place] [address] Mar, [facility] [address] [id number] [address] [place] [address], [place] [address] Mar, [facility] [address] [id number] [address] [place] [address], [place] [address] Mar, [facility] [address] [id number] [address] [place] [address], [place] [address] Mar, [facility] [address] [id number] [address] [place] [address] Mar, [facility] [address] [id number] [address] [place] [address] Mar, [facility] [address] [id number] [address] [place] [address] Mar, [facility] [address] [id number] [address] [place] [address] Mar, [facility] [address] [id number] [address] [place] [address] Nov, [facility] [address] [id number] [address] [place] [address] Nov, [facility] [address] [id number] [address] [place] [address] Sep, [facility] [address] [id number] [address] [place] [address] August, [facility] [address] [id number] [address] [place] [address] August, [facility] [address] [id number] [address] [place] [address] August, [facility] [address] [id number] [address] [place] [address] August, [facility] [address] [id number] [address] [place] [address] August, [facility] [address] [id number] [address] [place] [address] Jul, IMMUNIZATIONS No Known Immunizations SOCIAL HISTORY [...] History surgeries Hospitalization History Abses removed from [facility] May Hospitalization History miscarriage--over night stay 02/2017
--- OUTSIDE RECORDS SUMMARY | 2019-10-07 12:29 | XMS REPORT ---
Author Author Dano Almanza Doctor Organization [facility] Address Unknown Phone Unavailable Care Team Providers Care Animal Sticker Name Role Phone Migration, Doctor Unavailable Unavailable PROBLEMS Type Condition ICD9-CM Code [id number] Code Onset Dates Condition S tatus SNOMED Code Problem Anxiety disorder, unspecified F41.9 Active 235355332 Problem Cannabis use disorder, mild, abuse F12.10 Active 21143963 Problem BMI 45.0-49.9, adult Z68.42 Active 791883942 Problem Ganglion of joint M67.40 Active 78 486793 Problem Tobacco use Z72.0 Active 33020123 0 Problem Anxiety F41.9 Active 38488576 Problem Type 2 diabetes mellitus E11.9 Activ e 53725965 Problem Fibrocystic breast, right N60.11 Acti ve 66617572 Problem Hypercholesteremia E78.0 Active 1 7414893 Problem Binge eating disorder F50.81 Active 317485381 Problem Fibrocystic breast, left N60.12 Activ e 88957194 Problem Hypertriglyceridemia E78.1 Active 408575974 Problem Chest pain, unspecified R07.9 Active 94469813 Problem Surveillance of contraceptive injection Z30.42 Active 554067657 Problem Abdominal pain, left upper quadrant R10.12 Active 939524408 Problem Hypothyroid E03.9 Active 36038584 Problem 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 Active 58054866 ALLERGIES No Information ENCOUNTERS Encounter Location Date Diagnosis [facility] [place] [address] [facility] [id number] [address] [place] [phone] Jun, Type 2 diabetes mellitus E11 .9 ; Onychomycosis B35.1 and Morbid obesity E66.01 [facility] [place] [address] [facility] [id number] [address] [place] [id number] 18 May, 2018 Type 2 diabetes mellitus E11 .9 ; Hypothyroid E03.9 ; Tobacco use Z72.0 and Vaginal yeast infection B37.3 [facility] [place] [address] [place] [id number] [address] [place] [id number] 11 May, 2018 BMI 45.0-49.9, adult Z68.42 [facility] [place] [address] [place] [id number] [address] [place] [id number] 11 May, 2018 BMI 45.0-49.9, adult Z68.42 [facility] [place] [address] [place] [id number] [place] [address] May, BMI 45.0-49.9, adult Z68.42 [facility] [place] [address] [place] [id number] [place] [address] Apr, BMI 45.0-49.9, adult Z68.42 [facility] [place] [address] [place] [id number] [address] [place] [phone] Mar, [place] [address] [address] Mar, BMI 45.0-49.9, adult Z68.42 [facility] [place] [address] [place] [id number] [address] [place] [phone] Feb, [facility] [place] [address] [place] [id number] [place] [phone] Feb, [facility] [place] [address] [place] [id number] [address] [place] [id number] Feb, BMI 45.0-49.9, adult Z68.42 [facility] [place] [address] [place] [id number] [address] [place] [phone] Jan, BMI 45.0-49.9, adult Z68.42 [facility] [place] [address] [place] [id number] [address] [place] [id number] 10 Jan, 2018 [facility] [place] [address] [place] [id number] [address] [place] [id number] 24 Dec, 2017 History of miscarriage Z87.5 9 ; Type 2 diabetes mellitus E11.9 ; Hyperglycemia R73.9 ; Yeast vaginitis B37.3 ; BMI 45.0-49.9, adult Z68.42 and Binge eating disorder F50.81 [place] [address] [address] 17 Dec, 2017 BMI 45.0-49.9, adult Z68.42 ; Hypothyroid E03.9 and Type 2 diabetes mellitus E11.9 [place] [address] [address] 07 Dec, 2017 Onychomycosis B35.1 and Type 2 diabetes mellitus with diabetic neuropathy, unspecified whether prison insulin use E11.40 [place] [address] [address] 18 Oct, 2017 Hypertriglyceridemia E78.1 [place] [address] [address] 16 Oct, 2017 Type 2 diabetes mellitus E11 .9 ; Hypercholesteremia E78.0 and Hypothyroid E03.9 [place] [address] [address] Sep, BMI 45.0-49.9, adult Z68.42 [place] [address] [address] Sep, Type 2 diabetes mellitus E11 .9 [place] [address] [address] Sep, [place] [address] [address] Sep, Type 2 diabetes mellitus E11 .9 [place] [address] [address] 04 Sep, 2017 Hypothyroid E03.9 ; Type 2 d iabetes mellitus E11.9 ; Toe pain, left M79.675 and BMI 45.0-49.9, adult Z68.42 [place] [address] [address] Jul, [facility] [id number] [place] [address] May, Influenza-like illness R69 a nd BMI 40.0-44.9, adult Z68.41 [facility] [place] [address] [place] [id number] [address] [place] [address] May, Binge eating disorder F50.81 [facility] [place] [address] [address] Apr, [place] [address] [address] Apr, Binge eating disorder F50.81 [place] [address] [address] Mar, Binge eating disorder F50.81 [place] [address] [address] Feb, [place] [address] [address] Feb, Diabetes E11.9 ; Binge eatin g disorder F50.81 and BMI 40.0-44.9, adult Z68.41 [facility] [place] [address] [place] [id number] [address] [place] [address] Jan, Anxiety disorder, unspecifie d F41.9 and Anxiety F41.9 [place] [address] [address] 04 Jan, 2017 Anxiety disorder, unspecifie d F41.9 ; Cannabis use disorder, mild, abuse F12.10 and Adjustment disorder with mixed disturbance of em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 [place] [address] [place] [id number] [place] [address] August, Hypothyroid E03.9 [place] [address] [place] [id number] [address] [place] [id number] August, Type 2 diabetes mellitus E11 .9 [facility] [place] [address] [id number] [address] [place] [phone] Jun, [facility] [place] [address] [id number] [address] [place] [id number] Jun, Diabetes E11.9 ; Dysuria R30 .0 and Urinary tract infection without hematuria, site unspecified N39.0 [facility] [place] [address] [id number] [address] [place] [phone] Jun, [facility] [place] [address] [id number] [address] [place] [phone] May, [facility] [place] [address] [id number] [address] [place] [phone] Mar, [facility] [place] [address] [id number] [address] [place] [address] Mar, Pain of left leg M79.605 [facility] [place] [address] [id number] [address] [place] [id number] Feb, [facility] [place] [address] [id number] [address] [place] [phone] Feb, Type 2 diabetes mellitus E11 .9 [facility] [place] [address] [id number] [address] [place] [phone] Jan, [facility] [place] [address] [id number] [address] [place] [phone] Jan, [facility] [place] [address] [id number] [address] [place] [address] Jan, Discharge of breast N64.52 [facility] [place] [address] [id number] [address] [place] [address] Jan, Menorrhagia N92.0 ; Encounte r for [...] Fibrocystic breast, left N60.12 and Anxiety F41.9 [place] [address] [facility] [id number] [address] [place] [address] Dec, Diabetes E11.9 ; Right foot pain M79.671 ; Left upper quadrant pain R10.12 ; Pain in right leg M79.604 ; Pain of left leg M79.605 ; Other chest pain R07.89 ; Palpitations R00.2 ; Hypothyroid E03.9 ; Discharge of breast N64.52 and Hyperlipidemia, unspecified hyperlipidemia type E78.5 [place] [address] [facility] [id number] [address] [place] [address] Dec, [place] [address] [facility] [id number] [address] [place] [id number] Oct, [place] [address] [facility] [id number] [address] [place] [address] Oct, [place] [address] [facility] [id number] [address] [place] [phone] Sep, [place] [address] [place] [address] August, [place] [address] [address] August, [place] [address] [place] [address] Jul, Hypothyroid E03.9 [place] [address] [address] Jun, [place] [address] [address] May, Menorrhagia N92.0 ; Diabetes E11.9 ; Hypothyroid E03.9 and Tobacco abuse Z72.0 [place] [address] [address] 15 May, 2015 [place] [address] [address] 09 May, 2015 Well woman exam Z01.419 ; BM I 45.0-49.9, adult Z68.42 ; Type 2 diabetes mellitus E11.9 ; Weight loss R63.4 ; Chest pain, unspecified R07.9 ; Hypercholesteremia E78.0 and Routine screening for STI (sexually transmitted infection) Z11.3 [place] [address] [place] [id number] [address] [place] [id number] 05 May, 2015 [place] [address] [place] [id number] [address] [place] [id number] 04 May, 2015 Well woman exam Z01.419 [...] Fibrocystic breast, left N60.12 and Anxiety F41.9 [place] [address] [address] May, [place] [address] [place] [id number] [place] [address] Mar, [place] [address] [address] Feb, [place] [address] [address] Feb, Diabetes E11.9 ; Eustachian tube dysfunction, right H69.81 and Myalgia M79.1 [place] [address] [address] Feb, [address] [address] Nov, Mastodynia, female 611.71 [place] [address] [address] Oct, Obesity 278.[address] [address] Oct, Diabetes mellitus without me ntion of complication, type II or unspecified type, not stated as uncontrolled 250.00 ; Anxiety 300.00 and Obesity 278.00 [place] [address] [address] Sep, [place] [address] [address] Sep, Diabetes mellitus without me ntion of complication, type II or unspecified type, not stated as uncontrolled 250.00 and Anxiety 300.00 [place] [address] [address] Sep, [place] [address] [address] 14 Jul, 2014 [facility] [address] [id number] [address] [place] [address], [place] [address] Jul, [facility] [address] [id number] [address] [place] [address], [place] [address] Jun, [facility] [address] [id number] [address] [place] [address], [place] [address] Jun, [facility] [address] [id number] [address] [place] [address], [place] [address] May, [facility] [address] [id number] [address] [place] [address], [place] [address] May, [facility] [address] [id number] [address] [place] [address], [place] [address] Apr, [facility] [address] [id number] [address] [place] [address], [place] [address] Apr, [facility] [address] [id number] [address] [place] [address], [place] [address] Apr, [facility] [address] [id number] [address] [place] [address], [place] [address] Apr, [facility] [address] [id number] [address] [place] [address], [place] [address] Apr, [facility] [address] [id number] [address] [place] [address], [place] [address] Apr, [facility] [address] [id number] [address] [place] [address], [place] [address] Apr, [facility] [address] [id number] [address] [place] [address], [place] [address] Apr, [facility] [address] [id number] [address] [place] [address], [place] [address] Apr, [facility] [address] [id number] [address] [place] [address], [place] [address] Apr, [facility] [address] [id number] [address] [place] [address], [place] [address] Apr, [facility] [address] [id number] [address] [place] [address], [place] [address] Feb, [facility] [address] [id number] [address] [place] [address], [place] [address] Feb, [facility] [address] [id number] [address] [place] [address], [place] [address] Dec, [facility] [address] [id number] [address] [place] [address], [place] [address] Dec, [facility] [address] [id number] [address] [place] [address], [place] [address] Dec, [facility] [address] [id number] [address] [place] [address], [place] [address] Dec, [facility] [address] [id number] [address] [place] [address], [place] [address] Dec, [facility] [address] [id number] [address] [place] [address], [place] [address] Dec, [facility] [address] [id number] [address] [place] [address], [place] [address] Oct, [facility] [address] [id number] [address] [place] [address], [place] [address] Oct, [facility] [address] [id number] [address] [place] [address], [place] [address] Sep, [facility] [address] [id number] [address] [place] [address], [place] [address] 30 Sep, 2013 [facility] [address] [id number] [address] [place] [address], [place] [address] Sep, [facility] [address] [id number] [address] [place] [address], [place] [address] Sep, [facility] [address] [id number] [address] [place] [address], [place] [address] Sep, [facility] [address] [id number] [address] [place] [address], [place] [address] Sep, [facility] [address] [id number] [address] [place] [address], [place] [address] Sep, [facility] [address] [id number] [address] [place] [address], [place] [address] Sep, [facility] [address] [id number] [address] [place] [address], [place] [address] August, [facility] [address] [id number] [address] [place] [address], [place] [address] August, [facility] [address] [id number] [address] [place] [address], [place] [address] August, [facility] [address] [id number] [address] [place] [address], [place] [address] August, [facility] [address] [id number] [address] [place] [address], [place] [address] August, [facility] [address] [id number] [address] [place] [address], [place] [address] August, [facility] [address] [id number] [address] [place] [address], [place] [address] Jul, [facility] [address] [id number] [address] [place] [address], [place] [address] Jul, [facility] [address] [id number] [address] [place] [address], [place] [address] Jun, [facility] [address] [id number] [address] [place] [address], [place] [address] Jun, [facility] [address] [id number] [address] [place] [address], [place] [address] May, [facility] [address] [id number] [address] [place] [address], [place] [address] Apr, [facility] [address] [id number] [address] [place] [address], [place] [address] 16 Apr, 2012 [facility] [address] [id number] [address] [place] [address], [place] [address] Apr, [facility] [address] [id number] [address] [place] [address], [place] [address] Apr, [facility] [address] [id number] [address] [place] [address], [place] [address] Apr, [facility] [address] [id number] [address] [place] [address], [place] [address] Apr, [facility] [address] [id number] [address] [place] [address], [place] [address] Mar, [facility] [address] [id number] [address] [place] [address], [place] [address] Mar, [facility] [address] [id number] [address] [place] [address], [place] [address] Mar, [facility] [address] [id number] [address] [place] [address], [place] [address] Mar, [facility] [address] [id number] [address] [place] [address], [place] [address] Mar, [facility] [address] [id number] [address] [place] [address], [place] [address] Mar, [facility] [address] [id number] [address] [place] [address], [place] [address] Mar, [facility] [address] [id number] [address] [place] [address], [place] [address] Mar, [facility] [address] [id number] [address] [place] [address], [place] [address] 07 Mar, 2012 [facility] [address] [id number] [address] [place] [address], [place] [address] 07 Mar, 2012 [facility] [address] [id number] [address] [place] [address], [place] [address] Mar, [facility] [address] [id number] [address] [place] [address] Mar, [facility] [place] [address] [id number] [address] [place] [id number] Nov, [facility] [place] [address] [id number] [address] [place] [address] Nov, [facility] [place] [address] [id number] [address] [place] [phone] Sep, [facility] [place] [address] [id number] [address] [place] [id number] August, [facility] [place] [address] [id number] [address] [place] [id number] August, [facility] [place] [address] [id number] [address] [place] [id number] August, [facility] [place] [address] [id number] [address] [place] [id number] August, [facility] [place] [address] [id number] [address] [place] [id number] August, [facility] [place] [address] [id number] [address] [place] [id number] Jul, IMMUNIZATIONS No Known Immunizations SOCIAL HISTORY Never Assessed [place]AS[place] [place] VITAL SIGNS MEDICATIONS No [...] Hospitalization History Abses removed from [facility] May Hospitalization History miscarriage--over night stay 02/2017
--- OUTSIDE RECORDS SUMMARY | 2019-10-07 12:29 | XMS REPORT ---
Author Author Dano Almanza Doctor Organization [facility] Address Unknown Phone Unavailable Care Team Providers Care Forming Machine Operator Name Role Phone Migration, Doctor Unavailable Unavailable PROBLEMS Type Condition ICD9-CM Code PLY54-ND Code Onset Dates Condition S tatus SNOMED Code Problem Anxiety disorder, unspecified F41.9 Active 223884047 Problem Cannabis use disorder, mild, abuse F12.10 Active 62339110 Problem BMI 45.0-49.9, adult Z68.42 Active 366187443 Problem Ganglion of joint M67.40 Active 78 120794 Problem Tobacco use Z72.0 Active 03899895 0 Problem Anxiety F41.9 Active 19092693 Problem Type 2 diabetes mellitus E11.9 Activ e 67631729 Problem Fibrocystic breast, right N60.11 Acti ve 13037629 Problem Hypercholesteremia E78.0 Active 1 7438227 Problem Binge eating disorder F50.81 Active 308366065 Problem Fibrocystic breast, left N60.12 Activ e 64135891 Problem Hypertriglyceridemia E78.1 Active 198912995 Problem Chest pain, unspecified R07.9 Active 77845686 Problem Surveillance of contraceptive injection Z30.42 Active 752105201 Problem Abdominal pain, left upper quadrant R10.12 Active 227618488 Problem Hypothyroid E03.9 Active 14165478 Problem 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 Active 30345567 ALLERGIES No Information ENCOUNTERS Encounter Location Date Diagnosis [facility] [address] [facility] [id number] [address] [place] [id number] Jul, [facility] [address] [facility] [id number] [address] [place] [id number] Jun, Type 2 diabetes mellitus E11 .9 ; Onychomycosis B35.1 and Morbid obesity E66.01 [facility] [address] [facility] [id number] [address] [place] [id number] May, Type 2 diabetes mellitus E11 .9 ; Hypothyroid E03.9 ; Tobacco use Z72.0 and Vaginal yeast infection B37.3 [facility] [address] [address] 11 May, 2018 BMI 45.0-49.9, adult Z68.42 [facility] [address] [address] May, BMI 45.0-49.9, adult Z68.42 [facility] [address] [address] May, BMI 45.0-49.9, adult Z68.42 [facility] [address] [address] Apr, BMI 45.0-49.9, adult Z68.42 [place] [address] [address] Mar, [facility] [address] [address] Mar, BMI 45.0-49.9, adult Z68.42 [facility] [address] [address] Feb, [facility] [address] [address] Feb, [facility] [address] [address] Feb, BMI 45.0-49.9, adult Z68.42 [facility] [address] [address] Jan, BMI 45.0-49.9, adult Z68.42 [facility] [address] [place] [id number] [address] [place] [address] Jan, [facility] [address] [address] 24 Dec, 2017 History of miscarriage Z87.5 9 ; Type 2 diabetes mellitus E11.9 ; Hyperglycemia R73.9 ; Yeast vaginitis B37.3 ; BMI 45.0-49.9, adult Z68.42 and Binge eating disorder F50.81 [place] [address] [facility] [id number] [address] [place] [id number] 17 Dec, 2017 BMI 45.0-49.9, adult Z68.42 ; Hypothyroid E03.9 and Type 2 diabetes mellitus E11.9 [place] [address] [facility] [id number] [address] [place] [id number] 07 Dec, 2017 Onychomycosis B35.1 and Type 2 diabetes mellitus with diabetic neuropathy, unspecified whether intermediate designer insulin use E11.40 [place] [address] [place] [id number] [address] [place] [address] Oct, Hypertriglyceridemia E78.1 [place] [address] [place] [id number] [address] [place] [id number] 16 Oct, 2017 Type 2 diabetes mellitus E11 .9 ; Hypercholesteremia E78.0 and Hypothyroid E03.9 [place] [address] [place] [id number] [address] [place] [address] Sep, BMI 45.0-49.9, adult Z68.42 [place] [address] [place] [id number] [address] [place] [address] Sep, Type 2 diabetes mellitus E11 .9 [place] [address] [facility] [id number] [address] [place] [id number] Sep, [place] [address] [facility] [id number] [address] [place] [id number] Sep, Type 2 diabetes mellitus E11 .9 [place] [address] [facility] [id number] [address] [place] [address] Sep, Hypothyroid E03.9 ; Type 2 d iabetes mellitus E11.9 ; Toe pain, left M79.675 and BMI 45.0-49.9, adult Z68.42 [place] [address] [place] [id number] [address] [place] [address] Jul, [facility] [address] [address] 23 May, 2017 Influenza-like illness R69 a nd BMI 40.0-44.9, adult Z68.41 [place] [address] [address] 08 May, 2017 Binge eating disorder F50.81 [place] [address] [address] Apr, [place] [address] [address] Apr, Binge eating disorder F50.81 [place] [address] [address] Mar, Binge eating disorder F50.81 [place] [address] [address] Feb, [address] [address] Feb, Diabetes E11.9 ; Binge eatin g disorder F50.81 and BMI 40.0-44.9, adult Z68.41 [place] [address] [address] Jan, Anxiety disorder, unspecifie d F41.9 and Anxiety F41.9 [place] [address] [address] Jan, Anxiety disorder, unspecifie d F41.9 ; Cannabis use disorder, mild, abuse F12.10 and Adjustment disorder with mixed disturbance of em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 [place] [address] [address] August, Hypothyroid E03.9 [place] [address] [place] [id number] [address] [place] [address] August, Type 2 diabetes mellitus E11 .9 [facility] [address] [id number] [address] [place] [id number] Jun, [facility] [address] [id number] [address] [place] [address] Jun, Diabetes E11.9 ; Dysuria R30 .0 and Urinary tract infection without hematuria, site unspecified N39.0 [facility] [address] [id number] [address] [place] [address] Jun, [facility] [address] [id number] [address] [place] [id number] May, [facility] [address] [id number] [address] [place] [id number] Mar, [facility] [address] [facility] [id number] [address] [place] [id number] Mar, Pain of left leg M79.605 [facility] [address] [id number] [address] [place] [id number] Feb, [facility] [address] [id number] [address] [place] [id number] Feb, Type 2 diabetes mellitus E11 .9 [facility] [address] [id number] [address] [place] [id number] Jan, [facility] [address] [id number] [address] [place] [address] Jan, [facility] [address] [id number] [address] [place] [address] Jan, Discharge of breast N64.52 [facility] [address] [facility] [id number] [address] [place] [id number] Jan, Menorrhagia N92.0 ; Encounte r for [...] Fibrocystic breast, left N60.12 and Anxiety F41.9 [place] [address] [facility] [id number] [address] [place] [address] Dec, Diabetes E11.9 ; Right foot pain M79.671 ; Left upper quadrant pain R10.12 ; Pain in right leg M79.604 ; Pain of left leg M79.605 ; Other chest pain R07.89 ; Palpitations R00.2 ; Hypothyroid E03.9 ; Discharge of breast N64.52 and Hyperlipidemia, unspecified hyperlipidemia type E78.5 [place] [address] [facility] [id number] [address] [place] [id number] Dec, [place] [address] [facility] [id number] [address] [place] [id number] Oct, [place] [address] [facility] [id number] [address] [place] [id number] Oct, [place] [address] [facility] [id number] [address] [place] [id number] Sep, [facility] [address] [facility] [id number] [address] [place] [id number] August, [facility] [address] [facility] [id number] [address] [place] [id number] August, [facility] [address] [facility] [id number] [address] [place] [address] Jul, Hypothyroid E03.9 [facility] [address] [facility] [id number] [address] [place] [id number] Jun, [facility] [address] [address] May, Menorrhagia N92.0 ; Diabetes E11.9 ; Hypothyroid E03.9 and Tobacco abuse Z72.0 [place] [id number] [place] [address] 15 May, 2015 [facility] [address] [place] [id number] [address] [place] [address] 09 May, 2015 Well woman exam Z01.419 ; BM I 45.0-49.9, adult Z68.42 ; Type 2 diabetes mellitus E11.9 ; Weight loss R63.4 ; Chest pain, unspecified R07.9 ; Hypercholesteremia E78.0 and Routine screening for STI (sexually transmitted infection) Z11.3 [facility] [address] [place] [id number] [address] [place] [id number] 05 May, 2015 [facility] [address] [place] [id number] [address] [place] [address] 04 May, 2015 Well woman exam Z01.419 [...] breast, left N60.12 and Anxiety F41.[address] [address] 04 May, [address] [address] Mar, [address] [address] Feb, [address] [address] Feb, Diabetes E11.9 ; Eustachian tube dysfunction, right H69.81 and Myalgia M79.[address] [address] Feb, [address] [address] Nov, Mastodynia, female 611.[address] [address] Oct, Obesity 278.[address] [address] Oct, Diabetes mellitus without me ntion of complication, type II or unspecified type, not stated as uncontrolled 250.00 ; Anxiety 300.00 and Obesity 278.[address] [address] Sep, [address] [address] Sep, Diabetes mellitus without me ntion of complication, type II or unspecified type, not stated as uncontrolled 250.00 and Anxiety 300.[address] [address] Sep, [facility] [address] [id number] [address] [place] [address], [place] [address] Jul, [facility] [address] [id number] [address] [place] [address], [place] [address] Jul, [facility] [address] [id number] [address] [place] [address], [place] [address] Jun, [facility] [address] [id number] [address] [place] [address], [place] [address] Jun, [facility] [address] [id number] [address] [place] [address], [place] [address] May, [facility] [address] [id number] [address] [place] [address], [place] [address] May, [facility] [address] [id number] [address] [place] [address], [place] [address] Apr, [facility] [address] [id number] [address] [place] [address], [place] [address] Apr, [facility] [address] [id number] [address] [place] [address], [place] [address] Apr, [facility] [address] [id number] [address] [place] [address], [place] [address] Apr, [facility] [address] [id number] [address] [place] [address], [place] [address] Apr, [facility] [address] [id number] [address] [place] [address], [place] [address] Apr, [facility] [address] [id number] [address] [place] [address], [place] [address] Apr, [facility] [address] [id number] [address] [place] [address], [place] [address] Apr, [facility] [address] [id number] [address] [place] [address], [place] [address] Apr, [facility] [address] [id number] [address] [place] [address], [place] [address] Apr, [facility] [address] [id number] [address] [place] [address], [place] [address] Apr, [facility] [address] [id number] [address] [place] [address], [place] [address] Feb, [facility] [address] [id number] [address] [place] [address], [place] [address] Feb, [facility] [address] [id number] [address] [place] [address], [place] [address] Dec, [facility] [address] [id number] [address] [place] [address], [place] [address] Dec, [facility] [address] [id number] [address] [place] [address], [place] [address] Dec, [facility] [address] [id number] [address] [place] [address], [place] [address] Dec, [facility] [address] [id number] [address] [place] [address], [place] [address] Dec, [facility] [address] [id number] [address] [place] [address], [place] [address] Dec, [facility] [address] [id number] [address] [place] [address], [place] [address] Oct, [facility] [address] [id number] [address] [place] [address], [place] [address] Oct, [facility] [address] [id number] [address] [place] [address], [place] [address] Sep, [facility] [address] [id number] [address] [place] [address], [place] [address] Sep, [facility] [address] [id number] [address] [place] [address], [place] [address] Sep, [facility] [address] [id number] [address] [place] [address], [place] [address] Sep, [facility] [address] [id number] [address] [place] [address], [place] [address] Sep, [facility] [address] [id number] [address] [place] [address], [place] [address] Sep, [facility] [address] [id number] [address] [place] [address], [place] [address] Sep, [facility] [address] [id number] [address] [place] [address], [place] [address] Sep, [facility] [address] [id number] [address] [place] [address], [place] [address] August, [facility] [address] [id number] [address] [place] [address], [place] [address] August, [facility] [address] [id number] [address] [place] [address], [place] [address] August, [facility] [address] [id number] [address] [place] [address], [place] [address] August, [facility] [address] [id number] [address] [place] [address], [place] [address] August, [facility] [address] [id number] [address] [place] [address], [place] [address] August, [facility] [address] [id number] [address] [place] [address], [place] [address] Jul, [facility] [address] [id number] [address] [place] [address], [place] [address] Jul, [facility] [address] [id number] [address] [place] [address], [place] [address] Jun, [facility] [address] [id number] [address] [place] [address], [place] [address] Jun, [facility] [address] [id number] [address] [place] [address], [place] [address] May, [facility] [address] [id number] [address] [place] [address], [place] [address] 28 Apr, 2012 [facility] [address] [id number] [address] [place] [address], [place] [address] Apr, [facility] [address] [id number] [address] [place] [address], [place] [address] Apr, [facility] [address] [id number] [address] [place] [address], [place] [address] Apr, [facility] [address] [id number] [address] [place] [address], [place] [address] Apr, [facility] [address] [id number] [address] [place] [address], [place] [address] Apr, [facility] [address] [id number] [address] [place] [address], [place] [address] Mar, [facility] [address] [id number] [address] [place] [address], [place] [address] Mar, [facility] [address] [id number] [address] [place] [address], [place] [address] Mar, [facility] [address] [id number] [address] [place] [address], [place] [address] Mar, [facility] [address] [id number] [address] [place] [address], [place] [address] Mar, [facility] [address] [id number] [address] [place] [address], [place] [address] Mar, [facility] [address] [id number] [address] [place] [address], [place] [address] Mar, [facility] [address] [id number] [address] [place] [address], [place] [address] Mar, [facility] [address] [id number] [address] [place] [address], [place] [address] 07 Mar, 2012 [facility] [address] [id number] [address] [place] [address], [place] [address] 07 Mar, 2012 [facility] [address] [id number] [address] [place] [id number] Mar, [facility] [address] [id number] [address] [place] [id number] Mar, [facility] [address] [id number] [address] [place] [id number] Nov, [facility] [address] [id number] [address] [place] [phone] Nov, [facility] [address] [id number] [address] [place] [phone] Sep, [facility] [address] [id number] [address] [place] [id number] August, [facility] [address] [id number] [address] [place] [id number] August, [facility] [address] [id number] [address] [place] [phone] August, [facility] [address] [id number] [address] [place] [phone] August, [facility] [address] [id number] [address] [place] [id number] August, [facility] [address] [id number] [address] [place] [id number] Jul, IMMUNIZATIONS No Known Immunizations SOCIAL HISTORY Never Assessed REASON FOR VISIT [facility] PLAN OF CARE VITAL SIGNS MEDICATIONS Medication Instructions Dosage Frequency Start Date End Date Duration S tatus Levemir FlexTouch 100 unit/mL (3 mL) inj ect 10 Units by Subcutaneous route as per insulin sliding scale protocol 1 time per day Apr, Active metformin 500 mg 2 tablet by Oral route 2 times per day Apr, Active Bactrim DS 800-160 mg 1 tablet by Oral route 2 times p er day for 10 day(s) August, Active Pristiq 50 mg 1 tablet by Oral route 1 time per day 2011 Active Keflex 500 mg take 1 capsule (500 mg) by oral route every 6 hours for 7 days Dec, Active RESULTS No Results PROCEDURES No Known [...]
--- OUTSIDE RECORDS SUMMARY | 2019-10-07 12:29 | XMS REPORT ---
Author Author Dano ROSEN Organization [facility] Address [address] [place] [address] Care Team Providers Care Pool Installer Name Role Phone DAISY ROSEN Unavailable PROBLEMS Type Condition ICD9-CM Code AIO36-IU Code Onset Dates Condition S tatus SNOMED Code Problem Type 2 diabetes mellitus E11.9 Activ e 33847370 Problem Hypercholesteremia E78.0 Active 1 9285007 Problem Fibrocystic breast, right N60.11 Acti ve 00318790 Problem Hypertriglyceridemia E78.1 Active 979106249 Problem Binge eating disorder F50.81 Active 730216500 Problem Abdominal pain, left upper quadrant R10.12 Active 687159722 Problem Surveillance of contraceptive injection Z30.42 Active 716241297 Problem 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 Active 19872949 Problem Hypothyroid E03.9 Active 81602852 Problem Cannabis use disorder, mild, abuse F12.10 Active 19484463 Problem Anxiety disorder, unspecified F41.9 Active 194548117 Problem Anxiety F41.9 Active 50941865 Problem Tobacco use Z72.0 Active 58685698 0 Problem Ganglion of joint M67.40 Active 78 134333 Problem Chest pain, unspecified R07.9 Active 67764772 Problem BMI 45.0-49.9, adult Z68.42 Active 504594509 Problem Fibrocystic breast, left N60.12 Activ e [id number] ALLERGIES No Information ENCOUNTERS Encounter Location Date Diagnosis [facility] [address] [facility] [id number] [address] [place] [address] Apr, [facility] [address] [facility] [id number] [address] [place] [address] 14 Mar, 2018 BMI 45.0-49.9, adult Z68.42 [facility] [address] [facility] [id number] [address] [place] [address] Feb, [place] [id number] [place] [address] Feb, [place] [address] [address] Feb, BMI 45.0-49.9, adult Z68.42 [place] [address] [address] Jan, BMI 45.0-49.9, adult Z68.42 [place] [address] [address] Jan, [place] [address] [address] Dec, History of miscarriage Z87.5 9 ; Type 2 diabetes mellitus E11.9 ; Hyperglycemia R73.9 ; Yeast vaginitis B37.3 ; BMI 45.0-49.9, adult Z68.42 and Binge eating disorder F50.81 [place] [address] [place] [id number] [place] [address] 17 Dec, 2017 BMI 45.0-49.9, adult Z68.42 ; Hypothyroid E03.9 and Type 2 diabetes mellitus E11.9 [place] [address] [place] [id number] [address] [place] [address] Dec, Onychomycosis B35.1 and Type 2 diabetes mellitus with diabetic neuropathy, unspecified whether shelter insulin use E11.40 [place] [address] [place] [id number] [address] [place] [address] Oct, Hypertriglyceridemia E78.[address] [address] Oct, Type 2 diabetes mellitus E11 .9 ; Hypercholesteremia E78.0 and Hypothyroid E03.9 [place] [address] [place] [id number] [address] [place] [address] Sep, BMI 45.0-49.9, adult Z68.42 [facility] [address] [place] [id number] [address] [place] [address] Sep, Type 2 diabetes mellitus E11 .9 [facility] [address] [place] [id number] [address] [place] [address] Sep, [facility] [address] [address] Sep, Type 2 diabetes mellitus E11 .9 [facility] [address] [address] Sep, Hypothyroid E03.9 ; Type 2 d iabetes mellitus E11.9 ; Toe pain, left M79.675 and BMI 45.0-49.9, adult Z68.42 [facility] [address] [place] [id number] [place] [address] Jul, [facility] [address] [place] [id number] [address] [place] [address] May, Influenza-like illness R69 a nd BMI 40.0-44.9, adult Z68.41 [place] [address] [place] [id number] [place] [address] May, Binge eating disorder F50.81 [facility] [address] [place] [id number] [address] [place] [address] Apr, [facility] [address] [address] Apr, Binge eating disorder F50.81 [facility] [address] [place] [id number] [address] [place] [address] Mar, Binge eating disorder F50.81 [facility] [address] [place] [id number] [address] [place] [address] Feb, [facility] [address] [address] Feb, Diabetes E11.9 ; Binge eatin g disorder F50.81 and BMI 40.0-44.9, adult Z68.41 [place] [address] [facility] [id number] [address] [place] [address] Jan, Anxiety disorder, unspecifie d F41.9 and Anxiety F41.9 [place] [address] [facility] [id number] [address] [place] [address] Jan, Anxiety disorder, unspecifie d F41.9 ; Cannabis use disorder, mild, abuse F12.10 and Adjustment disorder with mixed disturbance of em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 [place] [address] [facility] [id number] [address] [place] [address] August, Hypothyroid E03.9 [place] [address] [facility] [id number] [address] [place] [address] August, Type 2 diabetes mellitus E11 .9 [place] [address] [facility] [id number] [address] [place] [address] Jun, [place] [address] [place] [id number] [address] [place] [address] Jun, Diabetes E11.9 ; Dysuria R30 .0 and Urinary tract infection without hematuria, site unspecified N39.0 [place] [address] [place] [id number] [address] [place] [address] Jun, [place] [address] [facility] [id number] [address] [place] [address] May, [place] [address] [facility] [id number] [address] [place] [address] Mar, [place] [address] [place] [id number] [address] [place] [address] Mar, Pain of left leg M79.605 [place] [address] [facility] [id number] [address] [place] [address] Feb, [place] [address] [place] [id number] [address] [place] [address] Feb, Type 2 diabetes mellitus E11 .9 [facility] [address] [facility] [id number] [address] [place] [address] Jan, [facility] [address] [facility] [id number] [address] [place] [address] Jan, [facility] [address] [facility] [id number] [address] [place] [address] Jan, Discharge of breast N64.52 [place] [address] [facility] [id number] [address] [place] [address] Jan, Menorrhagia N92.0 ; Encounte r for [...] Fibrocystic breast, left N60.12 and Anxiety F41.9 [facility] [address] [facility] [id number] [address] [place] [address] Dec, Diabetes E11.9 ; Right foot pain M79.671 ; Left upper quadrant pain R10.12 ; Pain in right leg M79.604 ; Pain of left leg M79.605 ; Other chest pain R07.89 ; Palpitations R00.2 ; Hypothyroid E03.9 ; Discharge of breast N64.52 and Hyperlipidemia, unspecified hyperlipidemia type E78.5 [facility] [address] [id number] [address] [place] [address] Dec, [facility] [address] [id number] [address] [place] [address] Oct, [facility] [address] [facility] [id number] [address] [place] [address] Oct, [facility] [address] [facility] [id number] [address] [place] [address] Sep, [facility] [address] [facility] [id number] [address] [place] [address] August, [facility] [address] [facility] [id number] [address] [place] [address] August, [facility] [address] [facility] [id number] [address] [place] [address] Jul, Hypothyroid E03.9 [facility] [address] [facility] [id number] [address] [place] [address] Jun, [facility] [address] [facility] [id number] [address] [place] [address] May, Menorrhagia N92.0 ; Diabetes E11.9 ; Hypothyroid E03.9 and Tobacco abuse Z72.0 [facility] [address] [facility] [id number] [address] [place] [address] May, [facility] [address] [facility] [id number] [address] [place] [address] May, Well woman exam Z01.419 ; BM I 45.0-49.9, adult Z68.42 ; Type 2 diabetes mellitus E11.9 ; Weight loss R63.4 ; Chest pain, unspecified R07.9 ; Hypercholesteremia E78.0 and Routine screening for STI (sexually transmitted infection) Z11.3 [place] [address] [place] [id number] [address] [place] [address] 05 May, 2015 [place] [address] [address] 04 May, 2016 Well woman exam Z01.419 ; En counter [...] Fibrocystic breast, left N60.12 and Anxiety F41.9 [place] [address] [address] 04 May, 2015 [place] [address] [address] Mar, [place] [address] [address] Feb, [place] [address] [address] Feb, Diabetes E11.9 ; Eustachian tube dysfunction, right H69.81 and Myalgia M79.1 [place] [address] [address] Feb, [place] [address] [place] [id number] [place] [address] Nov, Mastodynia, female 611.71 [place] [address] [place] [id number] [address] [place] [address] Oct, Obesity 278.00 [facility] [address] [id number] [address] [place] [address] Oct, Diabetes mellitus without me ntion of complication, type II or unspecified type, not stated as uncontrolled 250.00 ; Anxiety 300.00 and Obesity 278.00 [facility] [address] [id number] [address] [place] [address] Sep, [facility] [address] [id number] [address] [place] [address] Sep, Diabetes mellitus without me ntion of complication, type II or unspecified type, not stated as uncontrolled 250.00 and Anxiety 300.00 [facility] [address] [id number] [address] [place] [address] Sep, [facility] [address] [id number] [address] [place] [address] Jul, [facility] [address] [id number] [address] [place] [address] Jul, [facility] [address] [id number] [address] [place] [address] Jun, [facility] [address] [id number] [address] [place] [address] Jun, [facility] [address] [id number] [address] [place] [address] May, [facility] [address] [id number] [address] [place] [address] May, [facility] [address] [id number] [address] [place] [address] Apr, [facility] [address] [id number] [address] [place] [address] Apr, [facility] [address] [id number] [address] [place] [address] Apr, [facility] [address] [id number] [address] [place] [address], [place] [address] Apr, [facility] [address] [id number] [address] [place] [address], [place] [address] Apr, [facility] [address] [id number] [address] [place] [address], [place] [address] Apr, [facility] [address] [id number] [address] [place] [address], [place] [address] Apr, [facility] [address] [id number] [address] [place] [address], [place] [address] Apr, [facility] [address] [id number] [address] [place] [address], [place] [address] Apr, [facility] [address] [id number] [address] [place] [address], [place] [address] Apr, [facility] [address] [id number] [address] [place] [address], [place] [address] Apr, [facility] [address] [id number] [address] [place] [address], [place] [address] Feb, [facility] [address] [id number] [address] [place] [address], [place] [address] Feb, [facility] [address] [id number] [address] [place] [address], [place] [address] Dec, [facility] [address] [id number] [address] [place] [address], [place] [address] 12 Dec, 2013 [facility] [address] [id number] [address] [place] [address], [place] [address] 04 Dec, 2013 [facility] [address] [id number] [address] [place] [address], [place] [address] 04 Dec, 2013 [facility] [address] [id number] [address] [place] [address], [place] [address] 03 Dec, 2013 [facility] [address] [id number] [address] [place] [address], [place] [address] Dec, [facility] [address] [id number] [address] [place] [address], [place] [address] Oct, [facility] [address] [id number] [address] [place] [address], [place] [address] Oct, [facility] [address] [id number] [address] [place] [address], [place] [address] Sep, [facility] [address] [id number] [address] [place] [address], [place] [address] Sep, [facility] [address] [id number] [address] [place] [address], [place] [address] Sep, [facility] [address] [id number] [address] [place] [address], [place] [address] Sep, [facility] [address] [id number] [address] [place] [address], [place] [address] Sep, [facility] [address] [id number] [address] [place] [address], [place] [address] Sep, [facility] [address] [id number] [address] [place] [address], [place] [address] Sep, [facility] [address] [id number] [address] [place] [address], [place] [address] Sep, [facility] [address] [id number] [address] [place] [address], [place] [address] August, [facility] [address] [id number] [address] [place] [address], [place] [address] August, [facility] [address] [id number] [address] [place] [address], [place] [address] August, [facility] [address] [id number] [address] [place] [address], [place] [address] August, [facility] [address] [id number] [address] [place] [address], [place] [address] August, [facility] [address] [id number] [address] [place] [address], [place] [address] August, [facility] [address] [id number] [address] [place] [address], [place] [address] Jul, [facility] [address] [id number] [address] [place] [address], [place] [address] Jul, [facility] [address] [id number] [address] [place] [address], [place] [address] Jun, [facility] [address] [id number] [address] [place] [address], [place] [address] Jun, [facility] [address] [id number] [address] [place] [address], [place] [address] May, [facility] [address] [id number] [address] [place] [address], [place] [address] Apr, [facility] [address] [id number] [address] [place] [address], [place] [address] Apr, [facility] [address] [id number] [address] [place] [address], [place] [address] Apr, [facility] [address] [id number] [address] [place] [address], [place] [address] Apr, [facility] [address] [id number] [address] [place] [address], [place] [address] Apr, [facility] [address] [id number] [address] [place] [address], [place] [address] Apr, [facility] [address] [id number] [address] [place] [address], [place] [address] Mar, [facility] [address] [id number] [address] [place] [address], [place] [address] Mar, [facility] [address] [id number] [address] [place] [address], [place] [address] Mar, [facility] [address] [id number] [address] [place] [address], [place] [address] Mar, [facility] [address] [id number] [address] [place] [address], [place] [address] Mar, [facility] [address] [id number] [address] [place] [address], [place] [address] Mar, [facility] [address] [id number] [address] [place] [address], [place] [address] Mar, [facility] [address] [id number] [address] [place] [address], [place] [address] Mar, [facility] [address] [id number] [address] [place] [address], [place] [address] Mar, [facility] [address] [id number] [address] [place] [address], [place] [address] Mar, [facility] [address] [id number] [address] [place] [address], [place] [address] Mar, [facility] [address] [id number] [address] [place] [address], [place] [address] Mar, [facility] [address] [id number] [address] [place] [address], [place] [address] Nov, [facility] [address] [id number] [address] [place] [address], [place] [address] Nov, [facility] [address] [id number] [address] [place] [address], [place] [address] Sep, [facility] [address] [id number] [address] [place] [address], [place] [address] August, [facility] [address] [id number] [address] [place] [address], [place] [address] August, [facility] [address] [id number] [address] [place] [address], [place] [address] August, [facility] [address] [id number] [address] [place] [address], [place] [address] August, [facility] [address] [id number] [address] [place] [address], [place] [address] August, [facility] [address] [facility] [id number] [address] [place] [address] Jul, IMMUNIZATIONS No Known Immunizations SOCIAL HISTORY Never Assessed REASON FOR VISIT Controlled Med Refill 04/12/18 PLAN OF CARE VITAL SIGNS MEDICATIONS Medication Instructions Dosage Frequency Start Date End Date Duration S tatus Vyvanse 40 mg Orally Once a day 1 capsule in the morning 24h Mar, 28 days Active RESULTS No Results PROCEDURES [...]
--- OUTSIDE RECORDS SUMMARY | 2019-10-07 12:29 | XMS REPORT ---
Author Author Dano Almanza Doctor Organization [facility] Address Unknown Phone Unavailable Care Team Providers Care Clinical Data Coordinator Name Role Phone Migration, Doctor Unavailable Unavailable PROBLEMS Type Condition ICD9-CM Code [id number] Code Onset Dates Condition S tatus SNOMED Code Problem Anxiety disorder, unspecified F41.9 Active 138806357 Problem Cannabis use disorder, mild, abuse F12.10 Active 24134058 Problem BMI 45.0-49.9, adult Z68.42 Active 480436293 Problem Ganglion of joint M67.40 Active 78 082458 Problem Tobacco use Z72.0 Active 06928585 0 Problem Anxiety F41.9 Active 18314181 Problem Type 2 diabetes mellitus E11.9 Activ e 23566674 Problem Fibrocystic breast, right N60.11 Acti ve 56332097 Problem Hypercholesteremia E78.0 Active 1 8044726 Problem Binge eating disorder F50.81 Active 584033687 Problem Fibrocystic breast, left N60.12 Activ e 40778468 Problem Hypertriglyceridemia E78.1 Active 520916492 Problem Chest pain, unspecified R07.9 Active 00698342 Problem Surveillance of contraceptive injection Z30.42 Active 627555653 Problem Abdominal pain, left upper quadrant R10.12 Active 953486484 Problem Hypothyroid E03.9 Active 81212267 Problem 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 Active 65388116 ALLERGIES No Information ENCOUNTERS Encounter Location Date Diagnosis [facility] [address] [facility] [id number] [address] [place] [address] Jul, Type 2 diabetes mellitus E11 .9 [facility] [address] [place] [id number] [address] [place] [address] Jun, Type 2 diabetes mellitus E11 .9 ; Onychomycosis B35.1 and Morbid obesity E66.01 [facility] [address] [facility] [id number] [address] [place] [address] May, Type 2 diabetes mellitus E11 .9 ; Hypothyroid E03.9 ; Tobacco use Z72.0 and Vaginal yeast infection B37.3 [place] [address] [address] May, BMI 45.0-49.9, adult Z68.42 [facility] [address] [address] May, BMI 45.0-49.9, adult Z68.42 [facility] [address] [address] May, BMI 45.0-49.9, adult Z68.42 [place] [address] [address] Apr, BMI 45.0-49.9, adult Z68.42 [place] [address] [address] Mar, [facility] [address] [address] Mar, BMI 45.0-49.9, adult Z68.42 [place] [address] [address] Feb, [place] [address] [address] Feb, [facility] [address] [address] Feb, BMI 45.0-49.9, adult Z68.42 [place] [address] [address] Jan, BMI 45.0-49.9, adult Z68.42 [facility] [address] [address] Jan, [facility] [address] [place] [address] 24 Dec, 2017 History of miscarriage Z87.5 9 ; Type 2 diabetes mellitus E11.9 ; Hyperglycemia R73.9 ; Yeast vaginitis B37.3 ; BMI 45.0-49.9, adult Z68.42 and Binge eating disorder F50.81 [place] [address] [address] 17 Dec, 2017 BMI 45.0-49.9, adult Z68.42 ; Hypothyroid E03.9 and Type 2 diabetes mellitus E11.9 [place] [address] [address] 07 Dec, 2017 Onychomycosis B35.1 and Type 2 diabetes mellitus with diabetic neuropathy, unspecified whether retirement insulin use E11.40 [place] [address] [address] Oct, Hypertriglyceridemia E78.1 [place] [address] [address] 16 Oct, 2017 Type 2 diabetes mellitus E11 .9 ; Hypercholesteremia E78.0 and Hypothyroid E03.9 [place] [address] [address] Sep, BMI 45.0-49.9, adult Z68.42 [place] [address] [address] Sep, Type 2 diabetes mellitus E11 .9 [place] [address] [address] Sep, [place] [address] [address] Sep, Type 2 diabetes mellitus E11 .9 [place] [address] [place] [id number] [place] [address] 04 Sep, 2017 Hypothyroid E03.9 ; Type 2 d iabetes mellitus E11.9 ; Toe pain, left M79.675 and BMI 45.0-49.9, adult Z68.42 [facility] [address] [place] [id number] [address] [place] [address] Jul, [facility] [address] [address] May, Influenza-like illness R69 a nd BMI 40.0-44.9, adult Z68.41 [place] [address] [address] 08 May, 2017 Binge eating disorder F50.81 [place] [address] [address] Apr, [place] [address] [address] Apr, Binge eating disorder F50.81 [place] [address] [address] Mar, Binge eating disorder F50.81 [place] [address] [address] Feb, [place] [address] [address] Feb, Diabetes E11.9 ; Binge eatin g disorder F50.81 and BMI 40.0-44.9, adult Z68.41 [place] [address] [address] Jan, Anxiety disorder, unspecifie d F41.9 and Anxiety F41.9 [place] [address] [address] Jan, Anxiety disorder, unspecifie d F41.9 ; Cannabis use disorder, mild, abuse F12.10 and Adjustment disorder with mixed disturbance of em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 [place] [address] [address] August, Hypothyroid E03.9 [facility] [address] [id number] [address] [place] [address] August, Type 2 diabetes mellitus E11 .9 [facility] [address] [id number] [address] [place] [address] Jun, [facility] [address] [facility] [id number] [address] [place] [address] Jun, Diabetes E11.9 ; Dysuria R30 .0 and Urinary tract infection without hematuria, site unspecified N39.0 [facility] [address] [id number] [address] [place] [address] Jun, [facility] [address] [id number] [address] [place] [address] May, [facility] [address] [facility] [id number] [address] [place] [address] Mar, [facility] [address] [facility] [id number] [address] [place] [address] Mar, Pain of left leg M79.605 [facility] [address] [id number] [address] [place] [address] Feb, [facility] [address] [facility] [id number] [address] [place] [address] Feb, Type 2 diabetes mellitus E11 .9 [facility] [address] [facility] [id number] [address] [place] [address] Jan, [facility] [address] [id number] [address] [place] [address] Jan, [facility] [address] [facility] [id number] [address] [place] [address] Jan, Discharge of breast N64.52 [facility] [address] [facility] [id number] [address] [place] [address] Jan, Menorrhagia N92.0 ; Encounte r for [...] Fibrocystic breast, left N60.12 and Anxiety F41.9 [place] [id number] [address] [place] [address] Dec, Diabetes E11.9 ; Right foot pain M79.671 ; Left upper quadrant pain R10.12 ; Pain in right leg M79.604 ; Pain of left leg M79.605 ; Other chest pain R07.89 ; Palpitations R00.2 ; Hypothyroid E03.9 ; Discharge of breast N64.52 and Hyperlipidemia, unspecified hyperlipidemia type E78.5 [place] [address] [place] [id number] [address] [place] [address] Dec, [place] [address] [place] [id number] [address] [place] [address] Oct, [place] [address] [place] [id number] [address] [place] [address] Oct, [place] [address] [facility] [id number] [address] [place] [address] Sep, [facility] [address] [facility] [id number] [address] [place] [address] August, [facility] [address] [facility] [id number] [address] [place] [address] August, [facility] [address] [facility] [id number] [address] [place] [address] Jul, Hypothyroid E03.9 [facility] [address] [facility] [id number] [address] [place] [address] Jun, [facility] [address] [place] [id number] [address] [place] [address] May, Menorrhagia N92.0 ; Diabetes E11.9 ; Hypothyroid E03.9 and Tobacco abuse Z72.0 [facility] [address] [place] [id number] [address] [place] [address] 15 May, 2015 [facility] [address] [place] [id number] [address] [place] [address] May, Well woman exam Z01.419 ; BM I 45.0-49.9, adult Z68.42 ; Type 2 diabetes mellitus E11.9 ; Weight loss R63.4 ; Chest pain, unspecified R07.9 ; Hypercholesteremia E78.0 and Routine screening for STI (sexually transmitted infection) Z11.3 [facility] [address] [facility] [id number] [address] [place] [address] 05 May, 2015 [facility] [address] [place] [id number] [address] [place] [address] 04 May, 2015 Well woman exam Z01.419 [...] Fibrocystic breast, left N60.12 and Anxiety F41.[address] [address] 04 May, [address] [address] Mar, [address] [address] Feb, [address] [address] Feb, Diabetes E11.9 ; Eustachian tube dysfunction, right H69.81 and Myalgia M79.[address] [address] Feb, [address] [address] Nov, Mastodynia, female 611.[address] [address] Oct, Obesity 278.[address] [address] Oct, Diabetes mellitus without me ntion of complication, type II or unspecified type, not stated as uncontrolled 250.00 ; Anxiety 300.00 and Obesity 278.[address] [address] Sep, [address] [address] Sep, Diabetes mellitus without me ntion of complication, type II or unspecified type, not stated as uncontrolled 250.00 and Anxiety 300.[address] [address] Sep, [facility] [address] [id number] [address] [place] [address], [place] [address] Jul, [facility] [address] [id number] [address] [place] [address], [place] [address] Jul, [facility] [address] [id number] [address] [place] [address], [place] [address] Jun, [facility] [address] [id number] [address] [place] [address], [place] [address] Jun, [facility] [address] [id number] [address] [place] [address], [place] [address] May, [facility] [address] [id number] [address] [place] [address], [place] [address] May, [facility] [address] [id number] [address] [place] [address], [place] [address] Apr, [facility] [address] [id number] [address] [place] [address], [place] [address] Apr, [facility] [address] [id number] [address] [place] [address], [place] [address] Apr, [facility] [address] [id number] [address] [place] [address], [place] [address] Apr, [facility] [address] [id number] [address] [place] [address], [place] [address] Apr, [facility] [address] [id number] [address] [place] [address] Apr, [facility] [address] [id number] [address] [place] [address], [place] [address] Apr, [facility] [address] [id number] [address] [place] [address], [place] [address] Apr, [facility] [address] [id number] [address] [place] [address], [place] [address] Apr, [facility] [address] [id number] [address] [place] [address], [place] [address] Apr, [facility] [address] [id number] [address] [place] [address], [place] [address] Apr, [facility] [place] [facility] [address] [id number] [address] [place] [address], [place] [address] Feb, [facility] [place] [facility] [address] [id number] [address] [place] [address], [place] [address] Feb, [facility] [place] [facility] [address] [id number] [address] [place] [address], [place] [address] Dec, [facility] [place] [facility] [address] [id number] [address] [place] [address], [place] [address] Dec, [facility] [place] [facility] [address] [id number] [address] [place] [address], [place] [address] Dec, [facility] [place] [facility] [address] [id number] [address] [place] [address], [place] [address] Dec, 2013 [facility] [place] [facility] [address] [id number] [address] [place] [address], [place] [address] Dec, [facility] [place] [facility] [address] [id number] [address] [place] [address], [place] [address] Dec, [facility] [place] [facility] [address] [id number] [address] [place] [address], [place] [address] Oct, [facility] [place] [facility] [address] [id number] [address] [place] [address], [place] [address] Oct, [facility] [place] [facility] [address] [id number] [address] [place] [address], [place] [address] Sep, [facility] [place] [facility] [address] [id number] [address] [place] [address], [place] [address] Sep, [facility] [place] [facility] [address] [id number] [address] [place] [address], [place] [address] Sep, [facility] [place] [facility] [address] [id number] [address] [place] [address], [place] [address] Sep, [facility] [address] [id number] [facility] [address] Sep, [facility] [address] [id number] [address] [place] [address], [place] [address] Sep, [facility] [address] [id number] [address] [place] [address], [place] [address] Sep, [facility] [address] [id number] [address] [place] [address], [place] [address] Sep, [facility] [address] [id number] [address] [place] [address], [place] [address] August, [facility] [address] [id number] [address] [place] [address], [place] [address] August, [facility] [address] [id number] [address] [place] [address], [place] [address] August, [facility] [address] [id number] [address] [place] [address], [place] [address] August, [facility] [address] [id number] [address] [place] [address], [place] [address] August, [facility] [address] [id number] [address] [place] [address], [place] [address] August, [facility] [address] [id number] [address] [place] [address], [place] [address] Jul, [facility] [address] [id number] [address] [place] [address], [place] [address] Jul, [facility] [place] [facility] [address] [id number] [address] [place] [address], [place] [address] Jun, [facility] [place] [facility] [address] [id number] [address] [place] [address], [place] [address] Jun, [facility] [address] [id number] [address] [place] [address], [place] [address] May, [facility] [address] [id number] [address] [place] [address] 28 Apr, 2012 [facility] [address] [id number] [address] [place] [address], [place] [address] 16 Apr, 2012 [facility] [address] [id number] [address] [place] [address], [place] [address] 10 Apr, 2012 [facility] [address] [id number] [address] [place] [address], [place] [address] 04 Apr, 2012 [facility] [address] [id number] [address] [place] [address], [place] [address] Apr, [facility] [address] [id number] [address] [place] [address], [place] [address] Apr, [facility] [address] [id number] [address] [place] [address], [place] [address] Mar, [facility] [address] [id number] [address] [place] [address], [place] [address] Mar, [facility] [address] [id number] [address] [place] [address], [place] [address] Mar, [facility] [address] [id number] [address] [place] [address], [place] [address] Mar, [facility] [address] [id number] [address] [place] [address], [place] [address] Mar, [facility] [address] [id number] [address] [place] [address], [place] [address] Mar, [facility] [address] [id number] [address] [place] [address], [place] [address] Mar, [facility] [address] [id number] [address] [place] [address], [place] [address] Mar, [facility] [address] [id number] [address] [place] [address], [place] [address] 07 Mar, 2012 [facility] [address] [id number] [address] [place] [address], [place] [address] Mar, [facility] [address] [id number] [address] [place] [address] Mar, [facility] [address] [id number] [address] [place] [address] Mar, [facility] [address] [id number] [address] [place] [address] Nov, [facility] [address] [id number] [address] [place] [address] Nov, [facility] [address] [id number] [address] [place] [address] Sep, [facility] [address] [id number] [address] [place] [address] August, [facility] [address] [id number] [address] [place] [address] August, [facility] [address] [id number] [address] [place] [address] August, [facility] [address] [id number] [address] [place] [address] August, [facility] [address] [id number] [address] [place] [address] August, [facility] [address] [id number] [address] [place] [id number] Jul, IMMUNIZATIONS No Known Immunizations SOCIAL HISTORY Never Assessed REASON FOR VISIT [facility] PLAN OF CARE VITAL SIGNS MEDICATIONS Unknown [...] History adenoidectomy Surgical History [facility] May 2016 Hospitalization History surgeries Hospitalization History Abses removed from the [facility] May Hospitalization History miscarriage--over night stay 02/2017
--- OUTSIDE RECORDS SUMMARY | 2019-10-07 12:29 | XMS REPORT ---
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 Name Role Phone DAISY ROSEN Unavailable PROBLEMS Type Condition ICD9-CM Code UEM45-EC Code Onset Dates Condition S tatus SNOMED Code Problem Anxiety disorder, unspecified F41.9 Active 331745451 Problem Cannabis use disorder, mild, abuse F12.10 Active 71320959 Problem BMI 45.0-49.9, adult Z68.42 Active 161495346 Problem Ganglion of joint M67.40 Active 78 756019 Problem Tobacco use Z72.0 Active 30888353 0 Problem Anxiety F41.9 Active 98488377 Problem Type 2 diabetes mellitus E11.9 Activ e 54627038 Problem Fibrocystic breast, right N60.11 Acti ve 21075013 Problem Hypercholesteremia E78.0 Active 1 9056533 Problem Binge eating disorder F50.81 Active 728098588 Problem Fibrocystic breast, left N60.12 Activ e 91871925 Problem Hypertriglyceridemia E78.1 Active 487877900 Problem Chest pain, unspecified R07.9 Active 66514381 Problem Surveillance of contraceptive injection Z30.42 Active 856615559 Problem Abdominal pain, left upper quadrant R10.12 Active 899248521 Problem Hypothyroid E03.9 Active 64102387 Problem 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 Active 54301485 ALLERGIES No Information ENCOUNTERS Encounter Location Date Diagnosis [facility] [address] [facility] [id number] [address] [place] [address] Nov, [facility] [address] [facility] [id number] [address] [place] [address] Jul, Type 2 diabetes mellitus E11 .9 [facility] [address] [facility] [id number] [address] [place] [address] Jun, Type 2 diabetes mellitus E11 .9 ; Onychomycosis B35.1 and Morbid obesity E66.01 [place] [address] [address] 18 May, 2018 Type 2 diabetes mellitus E11 .9 ; Hypothyroid E03.9 ; Tobacco use Z72.0 and Vaginal yeast infection B37.3 [place] [address] [address] May, BMI 45.0-49.9, adult Z68.42 [place] [address] [address] 11 May, 2018 BMI 45.0-49.9, adult Z68.42 [place] [address] [address] May, BMI 45.0-49.9, adult Z68.42 [place] [address] [address] Apr, BMI 45.0-49.9, adult Z68.42 [place] [address] [address] Mar, [place] [address] [address] Mar, BMI 45.0-49.9, adult Z68.42 [place] [address] [address] Feb, [place] [address] [address] Feb, [place] [address] [address] Feb, BMI 45.0-49.9, adult Z68.42 [place] [address] [address] Jan, BMI 45.0-49.9, adult Z68.42 [place] [address] [place] [id number] [address] [place] [address] Jan, [place] [address] [place] [id number] [place] [address] 24 Dec, 2017 History of miscarriage Z87.5 9 ; Type 2 diabetes mellitus E11.9 ; Hyperglycemia R73.9 ; Yeast vaginitis B37.3 ; BMI 45.0-49.9, adult Z68.42 and Binge eating disorder F50.81 [place] [address] [address] 17 Dec, 2017 BMI 45.0-49.9, adult Z68.42 ; Hypothyroid E03.9 and Type 2 diabetes mellitus E11.9 [place] [address] [address] Dec, Onychomycosis B35.1 and Type 2 diabetes mellitus with diabetic neuropathy, 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 [place] [address] [address] Oct, Hypertriglyceridemia E78.1 [place] [address] [place] [id number] [place] [address] Oct, Type 2 diabetes mellitus E11 .9 ; Hypercholesteremia E78.0 and Hypothyroid E03.9 [place] [address] [place] [id number] [address] [place] [address] Sep, BMI 45.0-49.9, adult Z68.42 [place] [address] [place] [id number] [address] [place] [address] Sep, Type 2 diabetes mellitus E11 .9 [place] [address] [place] [id number] [address] [place] [address] Sep, [place] [address] [place] [id number] [place] [address] Sep, Type 2 diabetes mellitus E11 .9 [place] [address] [address] Sep, 2018 Hypothyroid E03.9 ; Type 2 d iabetes mellitus E11.9 ; Toe pain, left M79.675 and BMI 45.0-49.9, adult Z68.42 [facility] [address] [address] Jul, [facility] [address] [address] May, Influenza-like illness R69 a nd BMI 40.0-44.9, adult Z68.41 [place] [address] [address] May, Binge eating disorder F50.81 [place] [address] [address] Apr, [place] [address] [address] Apr, Binge eating disorder F50.81 [place] [address] [address] Mar, Binge eating disorder F50.81 [place] [address] [address] 16 Feb, 2017 [place] [address] [address] 15 Feb, 2017 Diabetes E11.9 ; Binge eatin g disorder F50.81 and BMI 40.0-44.9, adult Z68.41 [place] [address] [address] Jan, Anxiety disorder, unspecifie d F41.9 and Anxiety F41.9 [place] [address] [address] Jan, Anxiety disorder, unspecifie d F41.9 ; Cannabis use disorder, mild, abuse F12.10 and Adjustment disorder with mixed disturbance of em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 [place] [address] [address] [place] [id number] [address] [place] [address] August, Hypothyroid E03.9 [facility] [address] [facility] [id number] [address] [place] [address] August, Type 2 diabetes mellitus E11 .9 [facility] [address] [place] [id number] [address] [place] [address] Jun, [facility] [address] [place] [id number] [address] [place] [address] Jun, Diabetes E11.9 ; Dysuria R30 .0 and Urinary tract infection without hematuria, site unspecified N39.0 [place] [address] [place] [id number] [address] [place] [address] Jun, [facility] [address] [place] [id number] [address] [place] [address] May, [facility] [address] [place] [id number] [address] [place] [address] Mar, [place] [address] [place] [id number] [address] [place] [address] Mar, Pain of left leg M79.605 [place] [address] [place] [id number] [address] [place] [address] Feb, [facility] [address] [place] [id number] [address] [place] [address] Feb, Type 2 diabetes mellitus E11 .9 [facility] [address] [facility] [id number] [address] [place] [address] Jan, [place] [address] [place] [id number] [address] [place] [address] Jan, [facility] [address] [place] [id number] [address] [place] [address] Jan, Discharge of breast N64.52 [place] [address] [facility] [id number] [address] [place] [address] Jan, Menorrhagia N92.0 ; Encounte r for [...] Fibrocystic breast, left N60.12 and Anxiety F41.[address] [id number] [address] [place] [address] Dec, Diabetes E11.9 ; Right foot pain M79.671 ; Left upper quadrant pain R10.12 ; Pain in right leg M79.604 ; Pain of left leg M79.605 ; Other chest pain R07.89 ; Palpitations R00.2 ; Hypothyroid E03.9 ; Discharge of breast N64.52 and Hyperlipidemia, unspecified hyperlipidemia type E78.5 [place] [address] [facility] [id number] [address] [place] [address] Dec, [place] [address] [place] [id number] [address] [place] [address] Oct, [facility] [address] [place] [id number] [address] [place] [address] Oct, [facility] [address] [facility] [id number] [address] [place] [address] Sep, [facility] [address] [address] August, [facility] [address] [address] August, [facility] [address] [address] Jul, Hypothyroid E03.9 [facility] [address] [address] Jun, [facility] [address] [place] [id number] [address] [place] [address] May, Menorrhagia N92.0 ; Diabetes E11.9 ; Hypothyroid E03.9 and Tobacco abuse Z72.0 [facility] [id number] [place] [address] May, [facility] [address] [place] [id number] [address] [place] [address] May, Well woman exam Z01.419 ; BM I 45.0-49.9, adult Z68.42 ; Type 2 diabetes mellitus E11.9 ; Weight loss R63.4 ; Chest pain, unspecified R07.9 ; Hypercholesteremia E78.0 and Routine screening for STI (sexually transmitted infection) Z11.3 [facility] [address] [place] [id number] [address] [place] [address] 05 May, 2015 [facility] [address] [place] [id number] [address] [place] [address] 04 May, 2015 Well woman exam Z01.419 [...] Fibrocystic breast, left N60.12 and Anxiety F41.[address] [address] 04 May, [address] [address] Mar, [address] [address] Feb, [address] [address] Feb, Diabetes E11.9 ; Eustachian tube dysfunction, right H69.81 and Myalgia M79.[address] [address] Feb, [address] [address] Nov, Mastodynia, female 611.[address] [address] Oct, Obesity 278.[address] [address] Oct, Diabetes mellitus without me ntion of complication, type II or unspecified type, not stated as uncontrolled 250.00 ; Anxiety 300.00 and Obesity 278.[address] [address] Sep, [address] [address] Sep, Diabetes mellitus without me ntion of complication, type II or unspecified type, not stated as uncontrolled 250.00 and Anxiety 300.00 [facility] [address] [id number] [address] [place] [address] Sep, [facility] [address] [id number] [address] [place] [address] Jul, [facility] [address] [id number] [address] [place] [address] Jul, [facility] [address] [id number] [address] [place] [address] Jun, [facility] [address] [id number] [address] [place] [address] Jun, [facility] [address] [id number] [address] [place] [address] May, [facility] [address] [id number] [address] [place] [address] May, [facility] [address] [id number] [address] [place] [address] Apr, [facility] [address] [id number] [address] [place] [address] Apr, [facility] [address] [id number] [address] [place] [address] Apr, [facility] [address] [id number] [address] [place] [address] Apr, [facility] [address] [id number] [address] [place] [address] Apr, [facility] [address] [id number] [address] [place] [address] Apr, [facility] [address] [id number] [address] [place] [address] Apr, [facility] [address] [id number] [address] [place] [address], [place] [address] Apr, [facility] [address] [id number] [address] [place] [address], [place] [address] Apr, [facility] [address] [id number] [address] [place] [address], [place] [address] Apr, [facility] [address] [id number] [address] [place] [address], [place] [address] Apr, [facility] [address] [id number] [address] [place] [address], [place] [address] Feb, [facility] [address] [id number] [address] [place] [address], [place] [address] Feb, [facility] [address] [id number] [address] [place] [address], [place] [address] Dec, [facility] [address] [id number] [address] [place] [address], [place] [address] Dec, [facility] [address] [id number] [address] [place] [address], [place] [address] Dec, [facility] [address] [id number] [address] [place] [address], [place] [address] Dec, [facility] [address] [id number] [address] [place] [address], [place] [address] Dec, [facility] [address] [id number] [address] [place] [address], [place] [address] Dec, [facility] [address] [id number] [address] [place] [address], [place] [address] Oct, [facility] [address] [id number] [address] [place] [address], [place] [address] Oct, [facility] [address] [id number] [address] [place] [address], [place] [address] Sep, [facility] [address] [id number] [address] [place] [address], [place] [address] Sep, [facility] [address] [id number] [facility] [place] [address] Sep, [facility] [address] [id number] [address] [place] [address], [place] [address] Sep, [facility] [address] [id number] [address] [place] [address], [place] [address] Sep, [facility] [address] [id number] [address] [place] [address], [place] [address] Sep, [facility] [address] [id number] [address] [place] [address], [place] [address] Sep, [facility] [address] [id number] [address] [place] [address], [place] [address] Sep, [facility] [address] [id number] [address] [place] [address], [place] [address] August, [facility] [address] [id number] [address] [place] [address], [place] [address] August, [facility] [address] [id number] [address] [place] [address], [place] [address] August, [facility] [address] [id number] [address] [place] [address], [place] [address] August, [facility] [address] [id number] [address] [place] [address], [place] [address] August, [facility] [address] [id number] [address] [place] [address], [place] [address] August, [facility] [address] [id number] [address] [place] [address], [place] [address] Jul, [facility] [address] [id number] [address] [place] [address], [place] [address] Jul, [facility] [address] [id number] [address] [place] [address], [place] [address] Jun, [facility] [address] [id number] [address] [place] [address], [place] [address] Jun, [facility] [address] [id number] [address] [place] [address], [place] [address] May, [facility] [address] [id number] [address] [place] [address], [place] [address] Apr, [facility] [address] [id number] [address] [place] [address], [place] [address] Apr, [facility] [address] [id number] [address] [place] [address], [place] [address] Apr, [facility] [address] [id number] [address] [place] [address], [place] [address] Apr, [facility] [address] [id number] [address] [place] [address], [place] [address] Apr, [facility] [address] [id number] [address] [place] [address], [place] [address] Apr, [facility] [address] [id number] [address] [place] [address], [place] [address] Mar, [facility] [address] [id number] [address] [place] [address], [place] [address] Mar, [facility] [address] [id number] [address] [place] [address], [place] [address] Mar, [facility] [address] [id number] [address] [place] [address], [place] [address] Mar, [facility] [address] [id number] [address] [place] [address], [place] [address] Mar, [facility] [address] [id number] [address] [place] [address], [place] [address] Mar, [facility] [address] [id number] [address] [place] [address], [place] [address] Mar, [facility] [address] [id number] [address] [place] [address], [place] [address] Mar, [facility] [address] [id number] [address] [place] [address] Mar, [facility] [address] [id number] [address] [place] [address] Mar, [facility] [address] [id number] [address] [place] [address] Mar, [facility] [address] [id number] [address] [place] [address] Mar, [facility] [address] [id number] [address] [place] [address] Nov, [facility] [address] [id number] [address] [place] [address] Nov, [facility] [address] [id number] [address] [place] [address] Sep, [facility] [address] [id number] [address] [place] [address] August, [facility] [address] [id number] [address] [place] [address] August, [facility] [address] [id number] [address] [place] [address] August, [facility] [address] [id number] [address] [place] [address] August, [facility] [address] [id number] [address] [place] [address] August, [facility] [address] [id number] [address] [place] [address] Jul, IMMUNIZATIONS No Known Immunizations SOCIAL HISTORY [...] History surgeries Hospitalization History Abses removed from [facility] May Hospitalization History miscarriage--over night stay 02/2017
--- OUTSIDE RECORDS SUMMARY | 2019-10-07 12:30 | XMS REPORT ---
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 Name Role Phone DAISY ROSEN Unavailable PROBLEMS Type Condition ICD9-CM Code AWJ02-SD Code Onset Dates Condition S tatus SNOMED Code Problem Type 2 diabetes mellitus E11.9 Activ e 27296193 Problem Hypercholesteremia E78.0 Active 1 8312702 Problem Fibrocystic breast, right N60.11 Acti ve 09681965 Problem Hypertriglyceridemia E78.1 Active 002455581 Problem Binge eating disorder F50.81 Active 550039158 Problem Abdominal pain, left upper quadrant R10.12 Active 051744363 Problem Surveillance of contraceptive injection Z30.42 Active 662219912 Problem 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 Active 29413610 Problem Hypothyroid E03.9 Active 78481751 Problem Cannabis use disorder, mild, abuse F12.10 Active 03597345 Problem Anxiety disorder, unspecified F41.9 Active 434848700 Problem Anxiety F41.9 Active 22905583 Problem Tobacco use Z72.0 Active 85237364 0 Problem Ganglion of joint M67.40 Active 78 420789 Problem Chest pain, unspecified R07.9 Active 75028765 Problem BMI 45.0-49.9, adult Z68.42 Active 747896925 Problem Fibrocystic breast, left N60.12 Activ e [id number] ALLERGIES No Information ENCOUNTERS Encounter Location Date Diagnosis [facility] [address] [facility] [id number] [address] [place] [phone] Jan, [facility] [address] [facility] [id number] [address] [place] [address] 24 Dec, 2017 History of miscarriage Z87.5 9 ; Type 2 diabetes mellitus E11.9 ; Hyperglycemia R73.9 ; Yeast vaginitis B37.3 ; BMI 45.0-49.9, adult Z68.42 and Binge eating disorder F50.81 [place] [address] [place] [id number] [address] [place] [id number] 17 Dec, 2017 BMI 45.0-49.9, adult Z68.42 ; Hypothyroid E03.9 and Type 2 diabetes mellitus E11.9 [place] [address] [place] [id number] 07 Dec, 2017 Onychomycosis B35.1 and Type 2 diabetes mellitus with diabetic neuropathy, unspecified 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 E11.40 [place] [address] [place] [id number] [address] [place] [id number] 18 Oct, 2017 Hypertriglyceridemia E78.1 [place] [address] [place] [id number] [place] [address] 16 Oct, 2017 Type 2 diabetes mellitus E11 .9 ; Hypercholesteremia E78.0 and Hypothyroid E03.9 [place] [address] [place] [id number] [address] [place] [phone] Sep, BMI 45.0-49.9, adult Z68.42 [place] [address] [place] [id number] [place] [phone] Sep, Type 2 diabetes mellitus E11 .9 [place] [address] [place] [id number] [address] [place] [phone] Sep, [place] [address] [place] [id number] [address] [place] [phone] Sep, Type 2 diabetes mellitus E11 .9 [place] [address] [place] [id number] [address] [place] [id number] 04 Sep, 2017 Hypothyroid E03.9 ; Type 2 d iabetes mellitus E11.9 ; Toe pain, left M79.675 and BMI 45.0-49.9, adult Z68.42 [place] [address] [place] [id number] [address] [place] [phone] Jul, [facility] [address] [place] [address] May, Influenza-like illness R69 a nd BMI 40.0-44.9, adult Z68.41 [facility] [address] [place] [id number] [address] [place] [phone] May, Binge eating disorder F50.81 [place] [address] [address] Apr, [place] [address] [address] Apr, Binge eating disorder F50.81 [place] [address] [address] Mar, Binge eating disorder F50.81 [place] [address] [address] Feb, [place] [address] [address] Feb, Diabetes E11.9 ; Binge eatin g disorder F50.81 and BMI 40.0-44.9, adult Z68.41 [place] [address] [place] [id number] [address] [place] [id number] 11 Jan, 2017 Anxiety disorder, unspecifie d F41.9 and Anxiety F41.9 [place] [address] [place] [id number] [address] [place] [id number] Jan, Anxiety disorder, unspecifie d F41.9 ; Cannabis use disorder, mild, abuse F12.10 and Adjustment disorder with mixed disturbance of em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 [place] [address] [address] August, Hypothyroid E03.9 [place] [address] [place] [id number] [address] [place] [address] August, Type 2 diabetes mellitus E11 .9 [place] [address] [place] [id number] [place] [address] Jun, [facility] [address] [id number] [address] [place] [phone] Jun, Diabetes E11.9 ; Dysuria R30 .0 and Urinary tract infection without hematuria, site unspecified N39.0 [facility] [address] [id number] [address] [place] [id number] Jun, [facility] [address] [id number] [address] [place] [phone] May, [facility] [address] [id number] [address] [place] [address] Mar, [facility] [address] [id number] [address] [place] [phone] Mar, Pain of left leg M79.605 [facility] [address] [id number] [address] [place] [id number] Feb, [facility] [address] [id number] [address] [place] [address] Feb, Type 2 diabetes mellitus E11 .9 [facility] [address] [id number] [address] [place] [phone] Jan, [facility] [address] [id number] [address] [place] [address] Jan, [facility] [address] [facility] [id number] [address] [place] [id number] Jan, Discharge of breast N64.52 [facility] [address] [id number] [address] [place] [address] Jan, Menorrhagia N92.0 ; Encounte r for [...] Fibrocystic breast, left N60.12 and Anxiety F41.9 [place] [address] [facility] [id number] [address] [place] [address] Dec, Diabetes E11.9 ; Right foot pain M79.671 ; Left upper quadrant pain R10.12 ; Pain in right leg M79.604 ; Pain of left leg M79.605 ; Other chest pain R07.89 ; Palpitations R00.2 ; Hypothyroid E03.9 ; Discharge of breast N64.52 and Hyperlipidemia, unspecified hyperlipidemia type E78.5 [place] [address] [facility] [id number] [address] [place] [phone] Dec, [place] [address] [facility] [id number] [address] [place] [address] Oct, [place] [address] [facility] [id number] [address] [place] [phone] Oct, [place] [address] [facility] [id number] [address] [place] [phone] Sep, [place] [address] [facility] [id number] [address] [place] [id number] August, [place] [address] [place] [phone] August, [place] [address] [address] Jul, Hypothyroid E03.9 [place] [address] [address] Jun, [place] [address] [address] May, Menorrhagia N92.0 ; Diabetes E11.9 ; Hypothyroid E03.9 and Tobacco abuse Z72.0 [place] [address] [address] 15 May, 2015 [place] [address] [address] 09 May, 2015 Well woman exam Z01.419 ; BM I 45.0-49.9, adult Z68.42 ; Type 2 diabetes mellitus E11.9 ; Weight loss R63.4 ; Chest pain, unspecified R07.9 ; Hypercholesteremia E78.0 and Routine screening for STI (sexually transmitted infection) Z11.3 [place] [address] [place] [id number] [address] [place] [id number] 05 May, 2015 [place] [address] [place] [id number] [address] [place] [address] 04 May, 2015 Well woman exam Z01.419 [...] Fibrocystic breast, left N60.12 and Anxiety F41.9 [place] [address] [address] May, [place] [address] [address] Mar, [place] [address] [address] Feb, [place] [address] [address] Feb, Diabetes E11.9 ; Eustachian tube dysfunction, right H69.81 and Myalgia M79.1 [place] [address] [address] Feb, [place] [address] [address] Nov, Mastodynia, female 611.71 [place] [address] [address] Oct, Obesity 278.00 [place] [address] [address] Oct, Diabetes mellitus without me ntion of complication, type II or unspecified type, not stated as uncontrolled 250.00 ; Anxiety 300.00 and Obesity 278.00 [place] [address] [address] Sep, [place] [address] [address] Sep, Diabetes mellitus without me ntion of complication, type II or unspecified type, not stated as uncontrolled 250.00 and Anxiety 300.00 [place] [address] [address] Sep, [place] [address] [address] Jul, [facility] [place] [facility] [address] [id number] [address] [place] [address], [place] [address] Jul, [facility] [address] [id number] [address] [place] [address], [place] [address] Jun, [facility] [address] [id number] [address] [place] [address], [place] [address] Jun, [facility] [address] [id number] [address] [place] [address], [place] [id number] May, [facility] [address] [id number] [address] [place] [address], [place] [address] May, [facility] [address] [id number] [address] [place] [address], [place] [address] Apr, [facility] [address] [id number] [address] [place] [address], [place] [address] Apr, [facility] [address] [id number] [address] [place] [address], [place] [address] Apr, [facility] [address] [id number] [address] [place] [address], [place] [address] Apr, [facility] [address] [id number] [address] [place] [address], [place] [id number] Apr, [facility] [address] [id number] [address] [place] [address], [place] [address] Apr, [facility] [address] [id number] [address] [place] [address], [place] [id number] Apr, [facility] [address] [id number] [address] [place] [address], [place] [address] Apr, [facility] [address] [id number] [address] [place] [address], [place] [id number] Apr, [facility] [address] [id number] [address] [place] [address], [place] [address] Apr, [facility] [address] [id number] [address] [place] [address], [place] [address] Apr, [facility] [place] [facility] [address] [id number] [address] [place] [address], [place] [address] Feb, [facility] [place] [facility] [address] [id number] [address] [place] [address], [place] [address] Feb, [facility] [place] [facility] [address] [id number] [address] [place] [address], [place] [address] Dec, 2013 [facility] [place] [facility] [address] [id number] [address] [place] [address], [place] [address] Dec, 2013 [facility] [place] [facility] [address] [id number] [address] [place] [address], [place] [address] Dec, 2013 [facility] [place] [facility] [address] [id number] [address] [place] [address], [place] [address] Dec, 2013 [facility] [place] [facility] [address] [id number] [address] [place] [address], [place] [address] Dec, 2013 [facility] [place] [facility] [address] [id number] [address] [place] [address], [place] [address] Dec, [facility] [place] [facility] [address] [id number] [address] [place] [address], [place] [id number] Oct, [facility] [place] [facility] [address] [id number] [address] [place] [address], [place] [address] Oct, [facility] [place] [facility] [address] [id number] [address] [place] [address], [place] [address] Sep, [facility] [place] [facility] [address] [id number] [address] [place] [address], [place] [address] Sep, [facility] [place] [facility] [address] [id number] [address] [place] [address], [place] [address] Sep, [facility] [place] [facility] [address] [id number] [address] [place] [address], [place] [address] Sep, [facility] [place] [facility] [address] [id number] [address] [place] [address], [place] [address] Sep, [facility] [place] [facility] [address] [id number] [address] [place] [address], [place] [address] Sep, [facility] [address] [id number] [address] [place] [address], [place] [address] Sep, [facility] [address] [id number] [address] [place] [address], [place] [address] Sep, [facility] [address] [id number] [address] [place] [address], [place] [address] August, [facility] [address] [id number] [address] [place] [address], [place] [address] August, [facility] [address] [id number] [address] [place] [address], [place] [id number] August, [facility] [address] [id number] [address] [place] [address], [place] [address] August, [facility] [address] [id number] [address] [place] [address], [place] [address] August, [facility] [address] [id number] [address] [place] [address], [place] [address] August, [facility] [address] [id number] [address] [place] [address], [place] [address] Jul, [facility] [address] [id number] [address] [place] [address], [place] [address] Jul, [facility] [address] [id number] [address] [place] [address], [place] [address] Jun, [facility] [address] [id number] [address] [place] [address], [place] [address] Jun, [facility] [address] [id number] [address] [place] [address], [place] [address] May, [facility] [address] [id number] [address] [place] [address], [place] [address] Apr, [facility] [address] [id number] [address] [place] [address], [place] [address] Apr, [facility] [address] [id number] [address] [place] [address], [place] [address] 10 Apr, 2012 [facility] [address] [id number] [address] [place] [address], [place] [address] Apr, [facility] [address] [id number] [address] [place] [address], [place] [address] Apr, [facility] [address] [id number] [address] [place] [address], [place] [address] Apr, [facility] [address] [id number] [address] [place] [address], [place] [address] Mar, [facility] [address] [id number] [address] [place] [address], [place] [address] Mar, [facility] [address] [id number] [address] [place] [address], [place] [address] Mar, [facility] [address] [id number] [address] [place] [address], [place] [address] Mar, [facility] [address] [id number] [address] [place] [address], [place] [address] Mar, [facility] [address] [id number] [address] [place] [address], [place] [address] Mar, [facility] [address] [id number] [address] [place] [address], [place] [address] Mar, [facility] [address] [id number] [address] [place] [address], [place] [address] Mar, [facility] [address] [id number] [address] [place] [address], [place] [address] Mar, [facility] [address] [id number] [address] [place] [address], [place] [id number] 07 Mar, 2012 [facility] [address] [id number] [address] [place] [address], [place] [id number] 06 Mar, 2012 [facility] [address] [id number] [address] [place] [phone] Mar, [facility] [address] [id number] [address] [place] [id number] Nov, [facility] [address] [id number] [address] [place] [id number] Nov, [facility] [address] [id number] [address] [place] [id number] Sep, [facility] [address] [id number] [address] [place] [address] August, [facility] [address] [id number] [address] [place] [id number] August, [facility] [address] [id number] [address] [place] [address] August, [facility] [address] [id number] [address] [place] [id number] August, [facility] [address] [id number] [address] [place] [id number] August, [facility] [address] [id number] [address] [place] [phone] Jul, IMMUNIZATIONS No Known Immunizations SOCIAL HISTORY Never Assessed REASON FOR VISIT Refill request PLAN OF CARE VITAL SIGNS MEDICATIONS Medication Instructions Dosage Frequency Start Date End Date Duration S tatus Victoza 18 MG/3ML Subcutaneous Once a day inject 1.8 MG 24h 90 days Active Levothyroxine Sodium 75 MCG Orally Once a day 1 tablet 24h 90 days Active MetFORMIN HCl ER 500 MG Orally 2 times a day 2 tablets 12h 90 days Active GlyBURIDE 5 MG Orally Once a day 1 tablet with breakf ast or the first main meal of the day 24h 90 days Active RESULTS No Results PROCEDURES No [...] History surgeries Hospitalization History Abses removed from divya May Hospitalization History miscarriage--over night stay 02/2017
--- OUTSIDE RECORDS SUMMARY | 2019-10-07 12:30 | XMS REPORT ---
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 Name Role Phone DAISY ROSEN Unavailable PROBLEMS Type Condition ICD9-CM Code [id number] Code Onset Dates Condition S tatus SNOMED Code Problem Type 2 diabetes mellitus E11.9 Activ e 52200052 Problem Hypercholesteremia E78.0 Active 1 3171154 Problem Fibrocystic breast, right N60.11 Acti ve 66413870 Problem Hypertriglyceridemia E78.1 Active 078301983 Problem Binge eating disorder F50.81 Active 304762953 Problem Abdominal pain, left upper quadrant R10.12 Active 472249026 Problem Surveillance of contraceptive injection Z30.42 Active 114317608 Problem 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 Active 35029974 Problem Hypothyroid E03.9 Active 75016094 Problem Cannabis use disorder, mild, abuse F12.10 Active 96919143 Problem Anxiety disorder, unspecified F41.9 Active 571720617 Problem Anxiety F41.9 Active 88557784 Problem Tobacco use Z72.0 Active 79298372 0 Problem Ganglion of joint M67.40 Active 78 712421 Problem Chest pain, unspecified R07.9 Active 95724955 Problem BMI 45.0-49.9, adult Z68.42 Active 698320609 Problem Fibrocystic breast, left N60.12 Activ e 86692110 ALLERGIES No Information ENCOUNTERS Encounter Location Date Diagnosis [facility] [address] [facility] [id number] [address] [place] [address] Feb, [facility] [address] [facility] [id number] [address] [place] [address] Feb, [facility] [address] [facility] [id number] [address] [place] [address] Feb, BMI 45.0-49.9, adult Z68.42 [place] [address] [address] Jan, BMI 45.0-49.9, adult Z68.42 [place] [address] [address] Jan, [place] [address] [address] 24 Dec, 2017 History of miscarriage Z87.5 9 ; Type 2 diabetes mellitus E11.9 ; Hyperglycemia R73.9 ; Yeast vaginitis B37.3 ; BMI 45.0-49.9, adult Z68.42 and Binge eating disorder F50.81 [place] [address] [address] 17 Dec, 2017 BMI 45.0-49.9, adult Z68.42 ; Hypothyroid E03.9 and Type 2 diabetes mellitus E11.[address] [address] 07 Dec, 2017 Onychomycosis B35.1 and Type 2 diabetes mellitus with diabetic neuropathy, 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.[address] [address] Oct, Hypertriglyceridemia E78.[address] [address] Oct, Type 2 diabetes mellitus E11 .9 ; Hypercholesteremia E78.0 and Hypothyroid E03.9 [place] [address] [address] Sep, BMI 45.0-49.9, adult Z68.42 [place] [address] [address] Sep, Type 2 diabetes mellitus E11 .[address] [address] Sep, [facility] [address] [place] [id number] [address] [place] [address] Sep, Type 2 diabetes mellitus E11 .9 [place] [address] [address] Sep, Hypothyroid E03.9 ; Type 2 d iabetes mellitus E11.9 ; Toe pain, left M79.675 and BMI 45.0-49.9, adult Z68.42 [facility] [address] [place] [id number] [address] [place] [address] Jul, [facility] [address] [address] 23 May, 2017 Influenza-like illness R69 a nd BMI 40.0-44.9, adult Z68.41 [place] [address] [address] 08 May, 2017 Binge eating disorder F50.81 [place] [address] [address] [place] [id number] [address] [place] [address] Apr, [place] [address] [address] Apr, Binge eating disorder F50.81 [place] [address] [address] Mar, Binge eating disorder F50.81 [place] [address] [place] [id number] [address] [place] [address] Feb, [place] [address] [address] Feb, Diabetes E11.9 ; Binge eatin g disorder F50.81 and BMI 40.0-44.9, adult Z68.41 [place] [address] [address] [place] [id number] [address] [place] [address] Jan, Anxiety disorder, unspecifie d F41.9 and Anxiety F41.9 [facility] [address] [facility] [id number] [address] [place] [address] 04 Jan, 2017 Anxiety disorder, unspecifie d F41.9 ; Cannabis use disorder, mild, abuse F12.10 and Adjustment disorder with mixed disturbance of em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 [place] [address] [address] [place] [id number] [address] [place] [address] August, Hypothyroid E03.9 [facility] [address] [facility] [id number] [address] [place] [address] August, Type 2 diabetes mellitus E11 .9 [place] [address] [address] [place] [id number] [address] [place] [address] Jun, [place] [address] [place] [id number] [address] [place] [address] Jun, Diabetes E11.9 ; Dysuria R30 .0 and Urinary tract infection without hematuria, site unspecified N39.0 [facility] [address] [place] [id number] [address] [place] [address] Jun, [facility] [address] [facility] [id number] [address] [place] [address] May, [facility] [address] [place] [id number] [address] [place] [address] Mar, [place] [address] [place] [id number] [address] [place] [address] Mar, Pain of left leg M79.605 [facility] [address] [facility] [id number] [address] [place] [address] Feb, [facility] [address] [place] [id number] [address] [place] [address] Feb, Type 2 diabetes mellitus E11 .9 [facility] [address] [facility] [id number] [address] [place] [address] Jan, [facility] [address] [place] [id number] [address] [place] [address] Jan, [facility] [address] [facility] [id number] [address] [place] [address] Jan, Discharge of breast N64.52 [place] [id number] [facility] [id number] [address] [place] [address] Jan, Menorrhagia N92.0 ; Encounte r for [...] Fibrocystic breast, left N60.12 and Anxiety F41.9 [facility] [address] [facility] [id number] [address] [place] [address] Dec, Diabetes E11.9 ; Right foot pain M79.671 ; Left upper quadrant pain R10.12 ; Pain in right leg M79.604 ; Pain of left leg M79.605 ; Other chest pain R07.89 ; Palpitations R00.2 ; Hypothyroid E03.9 ; Discharge of breast N64.52 and Hyperlipidemia, unspecified hyperlipidemia type E78.5 [facility] [address] [facility] [id number] [address] [place] [address] Dec, [facility] [address] [facility] [id number] [address] [place] [address] Oct, [facility] [address] [facility] [id number] [address] [place] [address] Oct, [facility] [address] [facility] [id number] [address] [place] [address] Sep, [facility] [address] [facility] [id number] [address] [place] [address] August, [facility] [address] [place] [id number] [address] [place] [address] August, [facility] [address] [place] [id number] [address] [place] [address] Jul, Hypothyroid E03.9 [facility] [address] [place] [id number] [address] [place] [address] Jun, [facility] [address] [address] May, Menorrhagia N92.0 ; Diabetes E11.9 ; Hypothyroid E03.9 and Tobacco abuse Z72.0 [facility] [id number] [place] [address] May, [facility] [address] [place] [id number] [address] [place] [address] May, Well woman exam Z01.419 ; BM I 45.0-49.9, adult Z68.42 ; Type 2 diabetes mellitus E11.9 ; Weight loss R63.4 ; Chest pain, unspecified R07.9 ; Hypercholesteremia E78.0 and Routine screening for STI (sexually transmitted infection) Z11.3 [facility] [address] [place] [id number] [address] [place] [address] May, [address] [address] 04 May, 2016 Well woman exam Z01.419 [...] Fibrocystic breast, left N60.12 and Anxiety F41.9 [place] [address] [address] 04 May, [address] [address] Mar, [place] [address] [address] Feb, [address] [address] Feb, Diabetes E11.9 ; Eustachian tube dysfunction, right H69.81 and Myalgia M79.[address] [address] Feb, [place] [address] [address] Nov, Mastodynia, female 611.[address] [address] Oct, Obesity 278.[address] [address] Oct, Diabetes mellitus without me ntion of complication, type II or unspecified type, not stated as uncontrolled 250.00 ; Anxiety 300.00 and Obesity 278.00 [place] [address] [id number] [address] [place] [address] Sep, [facility] [address] [id number] [address] [place] [address] Sep, Diabetes mellitus without me ntion of complication, type II or unspecified type, not stated as uncontrolled 250.00 and Anxiety 300.00 [facility] [address] [id number] [address] [place] [address] Sep, [facility] [address] [id number] [address] [place] [address] Jul, [facility] [address] [id number] [address] [place] [address] Jul, [facility] [address] [id number] [address] [place] [address] Jun, [facility] [address] [id number] [address] [place] [address] Jun, [facility] [address] [id number] [address] [place] [address] May, [facility] [address] [id number] [address] [place] [address] May, [facility] [address] [id number] [address] [place] [address] Apr, [facility] [address] [id number] [address] [place] [address] Apr, [facility] [address] [id number] [address] [place] [address] Apr, [facility] [address] [id number] [address] [place] [address] Apr, [facility] [address] [id number] [address] [place] [address] Apr, [facility] [address] [id number] [address] [place] [address] Apr, [facility] [address] [id number] [address] [place] [address], [place] [address] Apr, [facility] [address] [id number] [address] [place] [address], [place] [address] Apr, [facility] [address] [id number] [address] [place] [address], [place] [address] Apr, [facility] [address] [id number] [address] [place] [address], [place] [address] Apr, [facility] [address] [id number] [address] [place] [address], [place] [address] Apr, [facility] [address] [id number] [address] [place] [address], [place] [address] Feb, [facility] [address] [id number] [address] [place] [address], [place] [address] Feb, [facility] [address] [id number] [address] [place] [address], [place] [address] Dec, [facility] [address] [id number] [address] [place] [address], [place] [address] Dec, [facility] [address] [id number] [address] [place] [address], [place] [address] Dec, [facility] [address] [id number] [address] [place] [address], [place] [address] Dec, 2013 [facility] [address] [id number] [address] [place] [address], [place] [address] Dec, [facility] [address] [id number] [address] [place] [address], [place] [address] Dec, [facility] [address] [id number] [address] [place] [address], [place] [address] Oct, [facility] [address] [id number] [address] [place] [address], [place] [address] Oct, [facility] [address] [id number] [address] [place] [address], [place] [address] Sep, [facility] [address] [id number] [address] [place] [address], [place] [address] Sep, [facility] [address] [id number] [address] [place] [address], [place] [address] Sep, [facility] [address] [id number] [address] [place] [address], [place] [address] Sep, [facility] [address] [id number] [address] [place] [address], [place] [address] Sep, [facility] [address] [id number] [address] [place] [address], [place] [address] Sep, [facility] [address] [id number] [address] [place] [address], [place] [address] Sep, [facility] [address] [id number] [address] [place] [address], [place] [address] Sep, [facility] [address] [id number] [address] [place] [address], [place] [address] August, [facility] [address] [id number] [address] [place] [address], [place] [address] August, [facility] [address] [id number] [address] [place] [address], [place] [address] August, [facility] [address] [id number] [address] [place] [address], [place] [address] August, [facility] [address] [id number] [address] [place] [address], [place] [address] August, [facility] [address] [id number] [address] [place] [address], [place] [address] August, [facility] [address] [id number] [address] [place] [address], [place] [address] Jul, [facility] [address] [id number] [address] [place] [address], [place] [address] Jul, [facility] [address] [id number] [address] [place] [address], [place] [address] 14 Jun, 2012 [facility] [address] [id number] [address] [place] [address], [place] [address] Jun, [facility] [address] [id number] [address] [place] [address], [place] [address] May, [facility] [address] [id number] [address] [place] [address], [place] [address] Apr, [facility] [address] [id number] [address] [place] [address], [place] [address] Apr, [facility] [address] [id number] [address] [place] [address], [place] [address] Apr, [facility] [address] [id number] [address] [place] [address], [place] [address] Apr, [facility] [address] [id number] [address] [place] [address], [place] [address] Apr, [facility] [address] [id number] [address] [place] [address], [place] [address] Apr, [facility] [address] [id number] [address] [place] [address], [place] [address] Mar, [facility] [address] [id number] [address] [place] [address], [place] [address] Mar, [facility] [address] [id number] [address] [place] [address], [place] [address] Mar, [facility] [address] [id number] [address] [place] [address], [place] [address] Mar, [facility] [address] [id number] [address] [place] [address], [place] [address] Mar, [facility] [address] [id number] [address] [place] [address], [place] [address] Mar, [facility] [address] [id number] [address] [address] Mar, [facility] [address] [id number] [address] [place] [address] Mar, [facility] [address] [id number] [address] [place] [address] Mar, [facility] [address] [id number] [address] [place] [address] Mar, [facility] [address] [id number] [address] [place] [address] Mar, [facility] [address] [id number] [address] [place] [address] Mar, [facility] [address] [id number] [address] [place] [address] Nov, [facility] [address] [id number] [address] [place] [address] Nov, [facility] [address] [id number] [address] [place] [address] Sep, [facility] [address] [id number] [address] [place] [address] August, [facility] [address] [id number] [address] [place] [address] August, [facility] [address] [id number] [address] [place] [address] August, [facility] [address] [id number] [address] [place] [address] August, [facility] [address] [id number] [address] [place] [address] August, [facility] [address] [id number] [address] [place] [address] Jul, IMMUNIZATIONS No Known Immunizations SOCIAL HISTORY Never Assessed REASON FOR VISIT PARVIN [employer] PLAN OF CARE VITAL SIGNS MEDICATIONS Unknown [...] History surgeries Hospitalization History Abses removed from [facility] May Hospitalization History miscarriage--over night stay 02/2017
--- OUTSIDE RECORDS SUMMARY | 2019-10-07 12:30 | XMS REPORT ---
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 Name Role Phone DAISY ROSEN Unavailable PROBLEMS Type Condition ICD9-CM Code UZI74-EM Code Onset Dates Condition S tatus SNOMED Code Problem Type 2 diabetes mellitus E11.9 Activ e 42798094 Problem Hypercholesteremia E78.0 Active 1 0225513 Problem Fibrocystic breast, right N60.11 Acti ve 52155374 Problem Hypertriglyceridemia E78.1 Active 905108491 Problem Binge eating disorder F50.81 Active 480823089 Problem Abdominal pain, left upper quadrant R10.12 Active 032061482 Problem Surveillance of contraceptive injection Z30.42 Active 496198697 Problem 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 Active 65267756 Problem Hypothyroid E03.9 Active 78347718 Problem Cannabis use disorder, mild, abuse F12.10 Active 87508739 Problem Anxiety disorder, unspecified F41.9 Active 787622071 Problem Anxiety F41.9 Active 34758670 Problem Tobacco use Z72.0 Active 43063966 0 Problem Ganglion of joint M67.40 Active 78 437602 Problem Chest pain, unspecified R07.9 Active 44668603 Problem BMI 45.0-49.9, adult Z68.42 Active 092071579 Problem Fibrocystic breast, left N60.12 Activ e 08664143 ALLERGIES Substance Reaction Event Type Date Status Victoza Unknown Drug Allergy Oct, Active Levemir hives Drug Allergy Oct, Active Lantus hager Drug Allergy Oct, Active ENCOUNTERS Encounter Location Date Diagnosis [facility] [address] [facility] [id number] [address] [place] [address] Dec, Onychomycosis B35.1 [facility] [address] [facility] [id number] [address] [place] [address] Oct, Hypertriglyceridemia E78.1 [facility] [address] [facility] [id number] [address] [place] [address] Oct, Type 2 diabetes mellitus E11 .9 ; Hypercholesteremia E78.0 and Hypothyroid E03.9 [facility] [address] [place] [id number] [address] [place] [address] Sep, BMI 45.0-49.9, adult Z68.42 [facility] [address] [address] Sep, Type 2 diabetes mellitus E11 .9 [facility] [address] [address] Sep, [place] [address] [address] Sep, Type 2 diabetes mellitus E11 .9 [facility] [address] [address] 04 Sep, 2017 Hypothyroid E03.9 ; Type 2 d iabetes mellitus E11.9 ; Toe pain, left M79.675 and BMI 45.0-49.9, adult Z68.42 [facility] [address] [place] [id number] [address] [place] [address] Jul, [facility] [address] [place] [id number] [address] [place] [address] May, Influenza-like illness R69 a nd BMI 40.0-44.9, adult Z68.41 [facility] [address] [place] [id number] [address] [place] [address] May, Binge eating disorder F50.81 [facility] [address] [place] [id number] [address] [place] [address] Apr, [facility] [address] [place] [id number] [address] [place] [address] Apr, Binge eating disorder F50.81 [facility] [address] [facility] [id number] [address] [place] [address] 12 Mar, 2017 Binge eating disorder F50.81 [facility] [address] [place] [id number] [address] [place] [address] 16 Feb, 2017 [place] [address] [place] [id number] [place] [address] Feb, Diabetes E11.9 ; Binge eatin g disorder F50.81 and BMI 40.0-44.9, adult Z68.41 [place] [address] [place] [id number] [place] [address] Jan, Anxiety disorder, unspecifie d F41.9 and Anxiety F41.9 [place] [address] [place] [id number] [address] [place] [address] 04 Jan, 2017 Anxiety disorder, unspecifie d F41.9 ; Cannabis use disorder, mild, abuse F12.10 and Adjustment disorder with mixed disturbance of em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 [place] [address] [place] [id number] [address] [place] [address] August, Hypothyroid E03.9 [place] [address] [place] [id number] [address] [place] [address] August, Type 2 diabetes mellitus E11 .9 [place] [address] [place] [id number] [address] [place] [address] Jun, [place] [address] [place] [id number] [address] [place] [address] Jun, Diabetes E11.9 ; Dysuria R30 .0 and Urinary tract infection without hematuria, site unspecified N39.0 [place] [address] [place] [id number] [address] [place] [address] Jun, [place] [address] [place] [id number] [address] [place] [address] May, [place] [address] [address] Mar, [facility] [address] [facility] [id number] [address] [place] [address] Mar, Pain of left leg M79.605 [facility] [address] [facility] [id number] [address] [place] [address] Feb, [place] [address] [place] [id number] [address] [place] [address] Feb, Type 2 diabetes mellitus E11 .9 [facility] [address] [facility] [id number] [address] [place] [address] Jan, [place] [address] [place] [id number] [address] [place] [address] Jan, [place] [address] [place] [id number] [address] [place] [address] Jan, Discharge of breast N64.52 [place] [address] [place] [id number] [address] [place] [address] 03 Jan, 2016 Menorrhagia N92.0 ; Encounte [...] left N60.12 and Anxiety F41.9 [facility] [address] [id number] [address] [place] [address] Dec, Diabetes E11.9 ; Right foot pain M79.671 ; Left upper quadrant pain R10.12 ; Pain in right leg M79.604 ; Pain of left leg M79.605 ; Other chest pain R07.89 ; Palpitations R00.2 ; Hypothyroid E03.9 ; Discharge of breast N64.52 and Hyperlipidemia, unspecified hyperlipidemia type E78.5 [facility] [address] [facility] [id number] [address] [place] [address] Dec, [facility] [address] [id number] [address] [place] [address] Oct, [facility] [address] [facility] [id number] [address] [place] [address] Oct, [facility] [address] [facility] [id number] [address] [place] [address] Sep, [facility] [address] [facility] [id number] [address] [place] [address] August, [facility] [address] [id number] [address] [place] [address] August, [facility] [address] [facility] [id number] [address] [place] [address] Jul, Hypothyroid E03.9 [facility] [address] [id number] [address] [place] [address] Jun, [facility] [address] [facility] [id number] [address] [place] [address] May, Menorrhagia N92.0 ; Diabetes E11.9 ; Hypothyroid E03.9 and Tobacco abuse Z72.0 [place] [address] [place] [id number] [address] [place] [address] 15 May, 2015 [place] [address] [place] [id number] [address] [place] [address] 09 May, 2015 Well woman exam Z01.419 ; BM I 45.0-49.9, adult Z68.42 ; Type 2 diabetes mellitus E11.9 ; Weight loss R63.4 ; Chest pain, unspecified R07.9 ; Hypercholesteremia E78.0 and Routine screening for STI (sexually transmitted infection) Z11.3 [place] [id number] [address] [place] [address] 05 May, 2015 [place] [address] [place] [id number] [place] [address] 04 May, 2015 Well woman exam Z01.419 [...] Fibrocystic breast, left N60.12 and Anxiety F41.9 [place] [address] [place] [id number] [address] [place] [address] May, [place] [address] [place] [id number] [address] [place] [address] Mar, [place] [address] [address] Feb, [place] [address] [place] [id number] [address] [place] [address] Feb, Diabetes E11.9 ; Eustachian tube dysfunction, right H69.81 and Myalgia M79.1 [facility] [address] [place] [id number] [address] [place] [address] Feb, [facility] [address] [address] Nov, Mastodynia, female 611.71 [facility] [address] [place] [id number] [address] [place] [address] Oct, Obesity 278.00 [facility] [address] [address] Oct, Diabetes mellitus without me ntion of complication, type II or unspecified type, not stated as uncontrolled 250.00 ; Anxiety 300.00 and Obesity 278.00 [facility] [address] [address] Sep, [facility] [address] [address] Sep, Diabetes mellitus without me ntion of complication, type II or unspecified type, not stated as uncontrolled 250.00 and Anxiety 300.00 [facility] [address] [address] Sep, [facility] [address] [place] [id number] [address] [place] [address] Jul, [facility] [address] [place] [id number] [address] [place] [address] Jul, [facility] [address] [place] [id number] [address] [place] [address] Jun, [facility] [address] [place] [id number] [address] [place] [address] Jun, [facility] [address] [place] [id number] [address] [place] [address] May, [facility] [address] [place] [id number] [address] [place] [address] May, [facility] [address] [id number] [address] [place] [address], [place] [address] Apr, [facility] [address] [id number] [address] [place] [address], [place] [address] Apr, [facility] [address] [id number] [address] [place] [address], [place] [address] Apr, [facility] [address] [id number] [address] [place] [address], [place] [address] Apr, [facility] [address] [id number] [address] [place] [address], [place] [address] Apr, [facility] [address] [id number] [address] [place] [address], [place] [address] Apr, [facility] [address] [id number] [address] [place] [address], [place] [address] Apr, [facility] [address] [id number] [address] [place] [address], [place] [address] Apr, [facility] [address] [id number] [address] [place] [address], [place] [address] Apr, [facility] [address] [id number] [address] [place] [address], [place] [address] Apr, [facility] [address] [id number] [address] [place] [address], [place] [address] Apr, [facility] [address] [id number] [address] [place] [address], [place] [address] Feb, [facility] [address] [id number] [address] [place] [address], [place] [address] Feb, [facility] [address] [id number] [address] [place] [address], [place] [address] Dec, [facility] [address] [id number] [address] [place] [address], [place] [address] Dec, [facility] [address] [id number] [address] [place] [address], [place] [address] 04 Dec, 2013 [facility] [address] [id number] [facility] [place] [address] 04 Dec, 2013 [facility] [address] [id number] [address] [place] [address], [place] [address] Dec, [facility] [address] [id number] [address] [place] [address], [place] [address] Dec, [facility] [address] [id number] [address] [place] [address], [place] [address] Oct, [facility] [address] [id number] [address] [place] [address], [place] [address] Oct, [facility] [address] [id number] [address] [place] [address], [place] [address] Sep, [facility] [address] [id number] [address] [place] [address], [place] [address] Sep, [facility] [address] [id number] [address] [place] [address], [place] [address] Sep, [facility] [address] [id number] [address] [place] [address], [place] [address] Sep, [facility] [address] [id number] [address] [place] [address], [place] [address] Sep, [facility] [address] [id number] [address] [place] [address], [place] [address] Sep, [facility] [address] [id number] [address] [place] [address], [place] [address] Sep, [facility] [address] [id number] [address] [place] [address], [place] [address] Sep, [facility] [address] [id number] [address] [place] [address], [place] [address] August, [facility] [address] [id number] [address] [place] [address], [place] [address] August, [facility] [address] [id number] [address] [place] [address], [place] [address] August, [facility] [address] [id number] [address] [place] [address], [place] [address] August, [facility] [address] [id number] [address] [place] [address], [place] [address] August, [facility] [address] [id number] [address] [place] [address], [place] [address] August, [facility] [address] [id number] [address] [place] [address], [place] [address] Jul, [facility] [address] [id number] [address] [place] [address], [place] [address] Jul, [facility] [address] [id number] [address] [place] [address], [place] [address] Jun, [facility] [address] [id number] [address] [place] [address], [place] [address] Jun, [facility] [address] [id number] [address] [place] [address], [place] [address] May, [facility] [address] [id number] [address] [place] [address], [place] [address] Apr, [facility] [address] [id number] [address] [place] [address], [place] [address] Apr, [facility] [address] [id number] [address] [place] [address], [place] [address] Apr, [facility] [address] [id number] [address] [place] [address], [place] [address] Apr, [facility] [address] [id number] [address] [place] [address], [place] [address] Apr, [facility] [address] [id number] [address] [place] [address], [place] [address] Apr, [facility] [address] [id number] [address] [place] [address], [place] [address] Mar, [facility] [address] [id number] [address] [place] [address], [place] [address] Mar, [facility] [address] [id number] [address] [place] [address], [place] [address] Mar, [facility] [address] [id number] [address] [place] [address], [place] [address] Mar, [facility] [address] [id number] [address] [place] [address], [place] [address] Mar, [facility] [address] [id number] [address] [place] [address], [place] [address] Mar, [facility] [address] [id number] [address] [place] [address], [place] [address] Mar, [facility] [address] [id number] [address] [place] [address], [place] [address] Mar, [facility] [address] [id number] [address] [place] [address], [place] [address] Mar, [facility] [address] [id number] [address] [place] [address], [place] [address] Mar, [facility] [address] [id number] [address] [place] [address], [place] [address] Mar, [facility] [address] [id number] [address] [place] [address], [place] [address] Mar, [facility] [address] [id number] [address] [place] [address], [place] [address] Nov, [facility] [address] [id number] [address] [place] [address], [place] [address] Nov, [facility] [address] [id number] [address] [place] [address], [place] [address] Sep, [facility] [address] [id number] [address] [place] [address], [place] [address] August, [facility] [address] [id number] [address] [place] [address] August, [facility] [address] [facility] [id number] [address] [place] [address] August, [facility] [address] [facility] [id number] [address] [place] [address] August, [facility] [address] [facility] [id number] [address] [place] [address] August, [facility] [address] [facility] [id number] [address] [place] [address] Jul, IMMUNIZATIONS No Known Immunizations SOCIAL HISTORY Never Assessed REASON FOR VISIT ADHD,PT stated not ADHD but is an DM apt-Jessi ESPINO PLAN OF CARE Activity Details Follow Up 3 Months Reason:DM VITAL SIGNS Height 64 in 2017-11-09 Weight 274.6 lbs 2017-11-09 Temperature 97.7 degrees Fahrenheit 2017-11-09 Heart Rate 88 bpm 2017-11-09 Respiratory Rate 20 2017-11-09 BMI 47.13 kg/m2 2017-11-09 Blood pressure systolic 108 mmHg 2017-11-09 Blood pressure diastolic 76 mmHg 2017-11-09 MEDICATIONS Medication Instructions Dosage Frequency Start Date End Date Duration S tatus Victoza 18 MG/3ML Subcutaneous Once a day inject 1.8 MG 24h 90 days Active Basaglar KwikPen 100 UNIT/ML Subcutaneous Once a day 40u 24h Oct, 30 days Active Contrave 8-90 MG Orally in PM X 1 week, 1 tab bid X 1 week, 2 tabs in AM and 1 in PM X 1 week, 2 tabs bid final dose 1 tablet Active Lumigan Active Excedrin Migraine 250-250-65 MG Orally every 6 hrs 2 tablets as needed 6 h Active TRUEtest Test - In Vitro 3 times a day test blood sugar 8h 90 days Active MetFORMIN HCl ER 500 MG Orally 2 times a day 2 tablets 12h 90 days Active Levothyroxine Sodium 75 MCG Orally Once a day 1 tablet 24h 90 days Active GlyBURIDE 5 MG Orally Once a day 1 tablet with breakf ast or the first main meal of the day 24h 90 days Active UltiCare Micro Pen [place] 32G X 4 MM as directed for use with Lantus Pen injector 90 days Active RESULTS No Results PROCEDURES Procedure Date Ordered Result Body Site LAB NOT B[facility]ED [facility] November 09, 2017 VENIPWILFRED, ROUTINE* November 09, 2017 INSTRUCTIONS MEDICATIONS ADMINISTERED No Known Medications MEDICAL [...]
--- OUTSIDE RECORDS SUMMARY | 2019-10-07 12:30 | XMS REPORT ---
Author Author Dano DIAMOND Organization [facility] [place] Address [address] [place] [address] Care Team Providers Care Park Worker Supervisor Name Role Phone DARAJOSE ALFREDO KangIN Unavailable PROBLEMS Type Condition ICD9-CM Code OSL77-IO Code Onset Dates Condition S tatus SNOMED Code Problem Type 2 diabetes mellitus E11.9 Activ e 07130291 Problem Hypercholesteremia E78.0 Active 1 9071511 Problem Fibrocystic breast, right N60.11 Acti ve 81907508 Problem Hypertriglyceridemia E78.1 Active 262257894 Problem Binge eating disorder F50.81 Active 272825789 Problem Abdominal pain, left upper quadrant R10.12 Active 828778335 Problem Surveillance of contraceptive injection Z30.42 Active 446808558 Problem 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 Active 82134563 Problem Hypothyroid E03.9 Active 54107502 Problem Cannabis use disorder, mild, abuse F12.10 Active 12533783 Problem Anxiety disorder, unspecified F41.9 Active 452139394 Problem Anxiety F41.9 Active 09009070 Problem Tobacco use Z72.0 Active 09001848 0 Problem Ganglion of joint M67.40 Active 78 285594 Problem Chest pain, unspecified R07.9 Active 75542608 Problem BMI 45.0-49.9, adult Z68.42 Active 741047658 Problem Fibrocystic breast, left N60.12 Activ e [id number] ALLERGIES No Information ENCOUNTERS Encounter Location Date Diagnosis [facility] [place] [address] [facility] [id number] [address] [place] [address] Jan, [facility] [place] [address] [facility] [id number] [address] [place] [address] 24 Dec, 2017 History of miscarriage Z87.5 9 ; Type 2 diabetes mellitus E11.9 ; Hyperglycemia R73.9 ; Yeast vaginitis B37.3 ; BMI 45.0-49.9, adult Z68.42 and Binge eating disorder F50.81 [place] [address] [place] [id number] [address] [place] [address] 17 Dec, 2017 BMI 45.0-49.9, adult Z68.42 ; Hypothyroid E03.9 and Type 2 diabetes mellitus E11.9 [place] [id number] [place] [address] 07 Dec, 2017 Onychomycosis B35.1 and Type 2 diabetes mellitus with diabetic neuropathy, unspecified whether usp insulin use E11.40 [place] [address] [place] [id number] [address] [place] [address] 18 Oct, 2017 Hypertriglyceridemia E78.1 [place] [address] [place] [id number] [place] [address] 16 Oct, 2017 Type 2 diabetes mellitus E11 .9 ; Hypercholesteremia E78.0 and Hypothyroid E03.9 [place] [address] [place] [id number] [address] [place] [address] Sep, BMI 45.0-49.9, adult Z68.42 [place] [address] [place] [id number] [address] [place] [address] Sep, Type 2 diabetes mellitus E11 .9 [place] [address] [place] [id number] [address] [place] [address] Sep, [place] [address] [place] [id number] [address] [place] [address] Sep, Type 2 diabetes mellitus E11 .9 [place] [address] [place] [id number] [address] [place] [address] Sep, Hypothyroid E03.9 ; Type 2 d iabetes mellitus E11.9 ; Toe pain, left M79.675 and BMI 45.0-49.9, adult Z68.42 [place] [address] [place] [id number] [address] [place] [address] Jul, [facility] [address] [place] [id number] [address] [place] [address] May, Influenza-like illness R69 a nd BMI 40.0-44.9, adult Z68.41 [place] [address] [address] May, Binge eating disorder F50.81 [place] [address] [address] Apr, [place] [address] [address] Apr, Binge eating disorder F50.81 [place] [address] [address] Mar, Binge eating disorder F50.81 [place] [address] [address] Feb, [place] [address] [address] Feb, Diabetes E11.9 ; Binge eatin g disorder F50.81 and BMI 40.0-44.9, adult Z68.41 [place] [address] [address] Jan, Anxiety disorder, unspecifie d F41.9 and Anxiety F41.9 [place] [address] [address] Jan, Anxiety disorder, unspecifie d F41.9 ; Cannabis use disorder, mild, abuse F12.10 and Adjustment disorder with mixed disturbance of em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 [place] [address] [address] August, Hypothyroid E03.9 [place] [address] [address] August, Type 2 diabetes mellitus E11 .9 [place] [address] [place] [address] Jun, [facility] [place] [address] [id number] [address] [place] [address] Jun, Diabetes E11.9 ; Dysuria R30 .0 and Urinary tract infection without hematuria, site unspecified N39.0 [facility] [place] [address] [id number] [address] [place] [address] Jun, [facility] [place] [address] [id number] [address] [place] [address] May, [facility] [place] [address] [id number] [address] [place] [address] Mar, [facility] [place] [address] [id number] [address] [place] [address] Mar, Pain of left leg M79.605 [facility] [place] [address] [id number] [address] [place] [address] Feb, [facility] [place] [address] [id number] [address] [place] [address] Feb, Type 2 diabetes mellitus E11 .9 [facility] [place] [address] [id number] [address] [place] [address] Jan, [facility] [place] [address] [id number] [address] [place] [address] Jan, [facility] [place] [address] [id number] [address] [place] [address] Jan, Discharge of breast N64.52 [facility] [place] [address] [id number] [address] [place] [address] Jan, Menorrhagia N92.0 ; Encounte r for [...] Fibrocystic breast, left N60.12 and Anxiety F41.9 [place] [address] [place] [id number] [address] [place] [address] Dec, Diabetes E11.9 ; Right foot pain M79.671 ; Left upper quadrant pain R10.12 ; Pain in right leg M79.604 ; Pain of left leg M79.605 ; Other chest pain R07.89 ; Palpitations R00.2 ; Hypothyroid E03.9 ; Discharge of breast N64.52 and Hyperlipidemia, unspecified hyperlipidemia type E78.5 [place] [address] [facility] [id number] [address] [place] [address] Dec, [place] [address] [facility] [id number] [address] [place] [address] Oct, [place] [address] [place] [id number] [address] [place] [address] Oct, [place] [address] [facility] [id number] [address] [place] [address] Sep, [place] [address] [place] [id number] [address] [place] [address] August, [place] [id number] [place] [id number] [address] [place] [address] August, [place] [address] [address] Jul, Hypothyroid E03.9 [place] [address] [address] Jun, [place] [address] [address] May, Menorrhagia N92.0 ; Diabetes E11.9 ; Hypothyroid E03.9 and Tobacco abuse Z72.0 [place] [address] [address] 15 May, 2015 [place] [address] [place] [id number] [address] [place] [address] 09 May, 2015 Well woman exam Z01.419 ; BM I 45.0-49.9, adult Z68.42 ; Type 2 diabetes mellitus E11.9 ; Weight loss R63.4 ; Chest pain, unspecified R07.9 ; Hypercholesteremia E78.0 and Routine screening for STI (sexually transmitted infection) Z11.3 [place] [address] [place] [id number] [address] [place] [address] 05 May, 2015 [place] [address] [place] [id number] [address] [place] [address] 04 May, 2015 Well woman exam Z01.419 [...] Fibrocystic breast, left N60.12 and Anxiety F41.9 [facility] [place] [address] [place] [id number] [address] [place] [address] May, [facility] [place] [address] [address] Mar, [facility] [place] [address] [address] Feb, [facility] [place] [address] [address] Feb, Diabetes E11.9 ; Eustachian tube dysfunction, right H69.81 and Myalgia M79.1 [place] [address] [address] Feb, [place] [address] [address] Nov, Mastodynia, female 611.71 [place] [address] [address] Oct, Obesity 278.00 [place] [address] [address] Oct, Diabetes mellitus without me ntion of complication, type II or unspecified type, not stated as uncontrolled 250.00 ; Anxiety 300.00 and Obesity 278.00 [place] [address] [place] [id number] [address] [place] [address] Sep, [facility] [place] [address] [place] [id number] [address] [place] [address] Sep, Diabetes mellitus without me ntion of complication, type II or unspecified type, not stated as uncontrolled 250.00 and Anxiety 300.00 [facility] [place] [address] [place] [id number] [address] [place] [address] Sep, [facility] [place] [address] [place] [id number] [address] [place] [address] Jul, [facility] [address] [id number] [address] [place] [address], [place] [address] Jul, [facility] [address] [id number] [address] [place] [address], [place] [address] Jun, [facility] [address] [id number] [address] [place] [address], [place] [address] Jun, [facility] [address] [id number] [address] [place] [address], [place] [address] May, [facility] [address] [id number] [address] [place] [address], [place] [address] May, [facility] [address] [id number] [address] [place] [address], [place] [address] Apr, [facility] [address] [id number] [address] [place] [address], [place] [address] Apr, [facility] [address] [id number] [address] [place] [address], [place] [address] Apr, [facility] [address] [id number] [address] [place] [address], [place] [address] Apr, [facility] [address] [id number] [address] [place] [address], [place] [address] Apr, [facility] [address] [id number] [address] [place] [address], [place] [address] Apr, [facility] [address] [id number] [address] [place] [address], [place] [address] Apr, [facility] [address] [id number] [address] [place] [address], [place] [address] Apr, [facility] [address] [id number] [address] [place] [address], [place] [address] Apr, [facility] [address] [id number] [address] [place] [address], [place] [address] Apr, [facility] [address] [id number] [address] [place] [address], [place] [address] Apr, [facility] [address] [id number] [address] [place] [address], [place] [address] Feb, [facility] [address] [id number] [address] [place] [address], [place] [address] Feb, [facility] [address] [id number] [address] [place] [address], [place] [address] Dec, [facility] [address] [id number] [address] [place] [address], [place] [address] Dec, [facility] [address] [id number] [address] [place] [address], [place] [address] Dec, [facility] [address] [id number] [address] [place] [address], [place] [address] Dec, [facility] [address] [id number] [address] [place] [address], [place] [address] Dec, [facility] [address] [id number] [address] [place] [address], [place] [address] Dec, [facility] [address] [id number] [address] [place] [address], [place] [address] Oct, [facility] [address] [id number] [address] [place] [address], [place] [address] Oct, [facility] [address] [id number] [address] [place] [address], [place] [address] Sep, [facility] [address] [id number] [address] [place] [address], [place] [address] Sep, [facility] [address] [id number] [address] [place] [address], [place] [address] Sep, [facility] [address] [id number] [address] [place] [address], [place] [address] Sep, [facility] [address] [id number] [address] [place] [address], [place] [address] 16 Sep, 2013 [facility] [address] [id number] [address] [place] [address], [place] [address] Sep, [facility] [address] [id number] [address] [place] [address], [place] [address] Sep, [facility] [address] [id number] [address] [place] [address], [place] [address] Sep, [facility] [address] [id number] [address] [place] [address], [place] [address] August, [facility] [address] [id number] [address] [place] [address], [place] [address] August, [facility] [address] [id number] [address] [place] [address], [place] [address] August, [facility] [address] [id number] [address] [place] [address], [place] [address] August, [facility] [address] [id number] [address] [place] [address], [place] [address] August, [facility] [address] [id number] [address] [place] [address], [place] [address] August, [facility] [address] [id number] [address] [place] [address], [place] [address] Jul, [facility] [address] [id number] [address] [place] [address], [place] [address] Jul, [facility] [address] [id number] [address] [place] [address], [place] [address] Jun, [facility] [address] [id number] [address] [place] [address], [place] [address] Jun, [facility] [address] [id number] [address] [place] [address], [place] [address] May, [facility] [address] [id number] [address] [place] [address], [place] [address] Apr, [facility] [address] [id number] [address] [place] [address], [place] [address] Apr, [facility] [address] [id number] [address] [place] [address], [place] [address] Apr, [facility] [address] [id number] [address] [place] [address], [place] [address] Apr, [facility] [address] [id number] [address] [place] [address], [place] [address] Apr, [facility] [address] [id number] [address] [place] [address], [place] [address] Apr, [facility] [address] [id number] [address] [place] [address], [place] [address] Mar, [facility] [address] [id number] [address] [place] [address], [place] [address] Mar, [facility] [address] [id number] [address] [place] [address], [place] [address] Mar, [facility] [address] [id number] [address] [place] [address], [place] [address] Mar, [facility] [address] [id number] [address] [place] [address], [place] [address] Mar, [facility] [address] [id number] [address] [place] [address], [place] [address] Mar, [facility] [address] [id number] [address] [place] [address], [place] [address] Mar, [facility] [address] [id number] [address] [place] [address], [place] [address] Mar, [facility] [address] [id number] [address] [place] [address], [place] [address] Mar, [facility] [address] [id number] [address] [place] [address], [place] [address] Mar, [facility] [address] [id number] [address] [place] [address], [place] [address] Mar, [facility] [address] [id number] [address] [address] Mar, [facility] [place] [address] [id number] [address] [place] [address] Nov, [facility] [place] [address] [id number] [address] [place] [address] Nov, [facility] [place] [address] [id number] [address] [place] [address] Sep, [facility] [place] [address] [id number] [address] [place] [address] August, [facility] [place] [address] [id number] [address] [place] [address] August, [facility] [place] [address] [id number] [address] [place] [address] August, [facility] [place] [address] [id number] [address] [place] [address] August, [facility] [place] [address] [id number] [address] [place] [address] August, [facility] [place] [address] [id number] [address] [place] [address] Jul, IMMUNIZATIONS No Known Immunizations SOCIAL HISTORY Never Assessed REASON FOR VISIT left toe pain-xray done - KENZIE Alexis PLAN OF CARE Activity Details Follow Up 3 Months Reason: VITAL SIGNS Height 64 in 2018-01-01 Blood pressure systolic 100 mmHg 2018-01-01 Blood pressure diastolic 80 mmHg 2018-01-01 MEDICATIONS Medication Instructions Dosage Frequency Start Date End Date Duration S tatus Contrave 8-90 MG Orally in PM X 1 week, 1 tab bid X 1 week, 2 tabs in AM and 1 in PM X 1 week, 2 tabs bid final dose 1 tablet Active Excedrin Migraine 250-250-65 MG Orally every 6 hrs 2 tablets as needed 6 h Active [facility] 3 1000 MG Orally Once a day 3 capsules 24h Oct, Active Victoza 18 MG/3ML Subcutaneous Once a day inject 1.8 MG 24h 90 days Active Levothyroxine Sodium 75 MCG Orally Once a day 1 tablet 24h 90 days Active Lumigan Active Basaglar KwikPen 100 UNIT/ML Subcutaneous Once a day 40u 24h 16 Oct, 2017 30 days Active MetFORMIN HCl ER 500 MG Orally 2 times a day 2 tablets 12h 90 days Active GlyBURIDE 5 MG Orally Once a day 1 tablet with breakf ast or the first main meal of the day 24h 90 days Active Penlac 8 % Externally Once a day, remove layer once a week 1 application to affected area Dec, Feb, 30 days Active TRUEtest Test - In Vitro 3 times a day test blood sugar 8h 90 days Active UltiCare Micro Pen [place] 32G X 4 MM as directed for use with Lantus Pen injector 90 days Active RESULTS No Results PROCEDURES Procedure Date Ordered Result Body Site DEBRIDE NAIL, 1-5 Jan 01, 2018 INSTRUCTIONS MEDICATIONS ADMINISTERED No Known Medications [...]
--- OUTSIDE RECORDS SUMMARY | 2019-10-07 12:30 | XMS REPORT ---
Author Author Dano ROSEN Organization [facility] Address [address] [place] [address] Care Team Providers Care Unisaw Operator Name Role Phone DAISY ROSEN Unavailable PROBLEMS Type Condition ICD9-CM Code PCW32-XP Code Onset Dates Condition S tatus SNOMED Code Problem Type 2 diabetes mellitus E11.9 Activ e 49539851 Problem Hypercholesteremia E78.0 Active 1 5173647 Problem Fibrocystic breast, right N60.11 Acti ve 14803105 Problem Hypertriglyceridemia E78.1 Active 429685044 Problem Binge eating disorder F50.81 Active 567753089 Problem Abdominal pain, left upper quadrant R10.12 Active 709084234 Problem Surveillance of contraceptive injection Z30.42 Active 613158144 Problem 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 Active 09884012 Problem Hypothyroid E03.9 Active 38098822 Problem Cannabis use disorder, mild, abuse F12.10 Active 28419574 Problem Anxiety disorder, unspecified F41.9 Active 320164334 Problem Anxiety F41.9 Active 79765792 Problem Tobacco use Z72.0 Active 90281991 0 Problem Ganglion of joint M67.40 Active 78 609533 Problem Chest pain, unspecified R07.9 Active 64457481 Problem BMI 45.0-49.9, adult Z68.42 Active 615280054 Problem Fibrocystic breast, left N60.12 Activ e [id number] ALLERGIES No Information ENCOUNTERS Encounter Location Date Diagnosis [facility] [address] [id number] [address] [place] [address] Dec, Onychomycosis B35.1 [facility] [address] [facility] [id number] [address] [place] [address] Oct, Hypertriglyceridemia E78.1 [facility] [address] [facility] [id number] [address] [place] [address] Oct, Type 2 diabetes mellitus E11 .9 ; Hypercholesteremia E78.0 and Hypothyroid E03.9 [facility] [id number] [place] [address] Sep, BMI 45.0-49.9, adult Z68.42 [facility] [address] [id number] [address] [place] [address] Sep, Type 2 diabetes mellitus E11 .9 [facility] [address] [id number] [address] [place] [address] Sep, [facility] [address] [address] Sep, Type 2 diabetes mellitus E11 .9 [facility] [address] [id number] [address] [place] [address] Sep, Hypothyroid E03.9 ; Type 2 d iabetes mellitus E11.9 ; Toe pain, left M79.675 and BMI 45.0-49.9, adult Z68.42 [facility] [address] [id number] [address] [place] [address] Jul, [facility] [address] [id number] [address] [place] [address] May, Influenza-like illness R69 a nd BMI 40.0-44.9, adult Z68.41 [facility] [address] [id number] [address] [place] [address] May, Binge eating disorder F50.81 [facility] [address] [id number] [address] [place] [address] Apr, [place] [address] [id number] [address] [place] [address] Apr, Binge eating disorder F50.81 [facility] [address] [id number] [address] [place] [address] Mar, Binge eating disorder F50.81 [place] [id number] [id number] [address] [place] [address] Feb, [place] [address] [address] Feb, Diabetes E11.9 ; Binge eatin g disorder F50.81 and BMI 40.0-44.9, adult Z68.41 [place] [address] [address] Jan, Anxiety disorder, unspecifie d F41.9 and Anxiety F41.9 [place] [id number] [place] [address] Jan, Anxiety disorder, unspecifie d F41.9 ; Cannabis use disorder, mild, abuse F12.10 and Adjustment disorder with mixed disturbance of em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 [place] [address] [id number] [address] [place] [address] August, Hypothyroid E03.9 [place] [address] [id number] [address] [place] [address] August, Type 2 diabetes mellitus E11 .9 [place] [address] [id number] [address] [place] [address] Jun, [place] [address] [id number] [address] [place] [address] Jun, Diabetes E11.9 ; Dysuria R30 .0 and Urinary tract infection without hematuria, site unspecified N39.0 [place] [address] [id number] [address] [place] [address] Jun, [place] [address] [address] May, [place] [address] [id number] [address] [place] [address] Mar, [place] [address] [address] Mar, Pain of left leg M79.605 [facility] [address] [facility] [id number] [address] [place] [address] Feb, [facility] [address] [facility] [id number] [address] [place] [address] Feb, Type 2 diabetes mellitus E11 .9 [facility] [address] [facility] [id number] [address] [place] [address] Jan, [facility] [address] [facility] [id number] [address] [place] [address] Jan, [facility] [address] [facility] [id number] [address] [place] [address] 07 Jan, 2016 Discharge of breast N64.52 [facility] [address] [facility] [id number] [address] [place] [address] 03 Jan, 2016 Menorrhagia N92.0 ; Encounte [...] Fibrocystic breast, left N60.12 and Anxiety F41.9 [facility] [address] [facility] [id number] [address] [place] [address] Dec, Diabetes E11.9 ; Right foot pain M79.671 ; Left upper quadrant pain R10.12 ; Pain in right leg M79.604 ; Pain of left leg M79.605 ; Other chest pain R07.89 ; Palpitations R00.2 ; Hypothyroid E03.9 ; Discharge of breast N64.52 and Hyperlipidemia, unspecified hyperlipidemia type E78.5 [facility] [address] [facility] [id number] [address] [place] [address] Dec, [facility] [address] [facility] [id number] [address] [place] [address] Oct, [facility] [address] [facility] [id number] [address] [place] [address] Oct, [facility] [address] [facility] [id number] [address] [place] [address] Sep, [facility] [address] [facility] [id number] [address] [place] [address] August, [facility] [address] [facility] [id number] [address] [place] [address] August, [facility] [address] [facility] [id number] [address] [place] [address] Jul, Hypothyroid E03.9 [facility] [address] [facility] [id number] [address] [place] [address] Jun, [facility] [address] [facility] [id number] [address] [place] [address] May, Menorrhagia N92.0 ; Diabetes E11.9 ; Hypothyroid E03.9 and Tobacco abuse Z72.0 [facility] [address] [facility] [id number] [address] [place] [address] May, [place] [address] [id number] [address] [place] [address] 09 May, 2015 Well woman exam Z01.419 ; BM I 45.0-49.9, adult Z68.42 ; Type 2 diabetes mellitus E11.9 ; Weight loss R63.4 ; Chest pain, unspecified R07.9 ; Hypercholesteremia E78.0 and Routine screening for STI (sexually transmitted infection) Z11.3 [place] [address] [id number] [address] [place] [address] 05 May, 2015 [place] [address] [address] 04 May, 2015 Well woman exam Z01.419 [...] Fibrocystic breast, left N60.12 and Anxiety F41.9 [place] [address] [id number] [address] [place] [address] May, [place] [address] [id number] [address] [place] [address] Mar, [place] [address] [address] Feb, [place] [address] [address] Feb, Diabetes E11.9 ; Eustachian tube dysfunction, right H69.81 and Myalgia M79.1 [place] [address] [address] Feb, [facility] [address] [id number] [address] [place] [address] Nov, Mastodynia, female 611.71 [facility] [address] [id number] [address] [place] [address] Oct, Obesity 278.00 [facility] [address] [facility] [id number] [address] [place] [address] Oct, Diabetes mellitus without me ntion of complication, type II or unspecified type, not stated as uncontrolled 250.00 ; Anxiety 300.00 and Obesity 278.00 [facility] [address] [id number] [address] [place] [address] Sep, [facility] [address] [facility] [id number] [address] [place] [address] Sep, Diabetes mellitus without me ntion of complication, type II or unspecified type, not stated as uncontrolled 250.00 and Anxiety 300.00 [facility] [address] [id number] [address] [place] [address] Sep, [facility] [address] [id number] [address] [place] [address] Jul, [facility] [address] [facility] [id number] [address] [place] [address] Jul, [facility] [address] [id number] [address] [place] [address] Jun, [facility] [address] [id number] [address] [place] [address] Jun, [facility] [address] [id number] [address] [place] [address] May, [facility] [address] [facility] [id number] [address] [place] [address] May, [facility] [address] [facility] [id number] [address] [place] [address] Apr, [facility] [address] [id number] [address] [place] [address], [place] [address] Apr, [facility] [address] [id number] [address] [place] [address], [place] [address] Apr, [facility] [address] [id number] [address] [place] [address], [place] [address] Apr, [facility] [address] [id number] [address] [place] [address], [place] [address] Apr, [facility] [address] [id number] [address] [place] [address], [place] [address] Apr, [facility] [address] [id number] [address] [place] [address], [place] [address] Apr, [facility] [address] [id number] [address] [place] [address], [place] [address] Apr, [facility] [address] [id number] [address] [place] [address], [place] [address] Apr, [facility] [address] [id number] [address] [place] [address], [place] [address] Apr, [facility] [address] [id number] [address] [place] [address], [place] [address] Apr, [facility] [address] [id number] [address] [place] [address], [place] [address] Feb, [facility] [address] [id number] [address] [place] [address], [place] [address] Feb, [facility] [address] [id number] [address] [place] [address], [place] [address] Dec, [facility] [address] [id number] [address] [place] [address], [place] [address] Dec, [facility] [address] [id number] [address] [place] [address], [place] [address] Dec, [facility] [address] [id number] [address] [place] [address], [place] [address] Dec, [facility] [address] [id number] [facility] [place] [address] Dec, [facility] [address] [id number] [address] [place] [address], [place] [address] Dec, [facility] [address] [id number] [address] [place] [address], [place] [address] Oct, [facility] [address] [id number] [address] [place] [address], [place] [address] Oct, [facility] [address] [id number] [address] [place] [address], [place] [address] Sep, [facility] [address] [id number] [address] [place] [address], [place] [address] Sep, [facility] [address] [id number] [address] [place] [address], [place] [address] Sep, [facility] [address] [id number] [address] [place] [address], [place] [address] Sep, [facility] [address] [id number] [address] [place] [address], [place] [address] Sep, [facility] [address] [id number] [address] [place] [address], [place] [address] Sep, [facility] [address] [id number] [address] [place] [address], [place] [address] Sep, [facility] [address] [id number] [address] [place] [address], [place] [address] Sep, [facility] [address] [id number] [address] [place] [address], [place] [address] August, [facility] [address] [id number] [address] [place] [address], [place] [address] August, [facility] [address] [id number] [address] [place] [address], [place] [address] August, [facility] [address] [id number] [address] [place] [address], [place] [address] August, [facility] [address] [id number] [address] [place] [address], [place] [address] August, [facility] [address] [id number] [address] [place] [address], [place] [address] August, [facility] [address] [id number] [address] [place] [address], [place] [address] Jul, [facility] [address] [id number] [address] [place] [address], [place] [address] Jul, [facility] [address] [id number] [address] [place] [address], [place] [address] Jun, [facility] [address] [id number] [address] [place] [address], [place] [address] Jun, [facility] [address] [id number] [address] [place] [address], [place] [address] May, [facility] [address] [id number] [address] [place] [address], [place] [address] Apr, [facility] [address] [id number] [address] [place] [address], [place] [address] Apr, [facility] [address] [id number] [address] [place] [address], [place] [address] Apr, [facility] [address] [id number] [address] [place] [address], [place] [address] Apr, [facility] [address] [id number] [address] [place] [address], [place] [address] Apr, [facility] [address] [id number] [address] [place] [address], [place] [address] Apr, [facility] [address] [id number] [address] [place] [address], [place] [address] Mar, [facility] [address] [id number] [address] [place] [address], [place] [address] Mar, [facility] [address] [id number] [address] [place] [address], [place] [address] Mar, [facility] [address] [id number] [address] [place] [address], [place] [address] Mar, [facility] [address] [id number] [address] [place] [address], [place] [address] Mar, [facility] [address] [id number] [address] [place] [address], [place] [address] Mar, [facility] [address] [id number] [address] [place] [address], [place] [address] Mar, [facility] [address] [id number] [address] [place] [address], [place] [address] Mar, [facility] [address] [id number] [address] [place] [address], [place] [address] Mar, [facility] [address] [id number] [address] [place] [address], [place] [address] Mar, [facility] [address] [id number] [address] [place] [address], [place] [address] Mar, [facility] [address] [id number] [address] [place] [address], [place] [address] Mar, [facility] [address] [id number] [address] [place] [address], [place] [address] Nov, [facility] [address] [id number] [address] [place] [address], [place] [address] Nov, [facility] [address] [id number] [address] [place] [address], [place] [address] Sep, [facility] [address] [id number] [address] [place] [address], [place] [address] August, [facility] [address] [id number] [address] [place] [address], [place] [address] August, [facility] [address] [id number] [address] [place] [address], [place] [address] August, [facility] [address] [facility] [id number] [address] [place] [address] August, [facility] [address] [facility] [id number] [address] [place] [address] August, [facility] [address] [facility] [id number] [address] [place] [address] Jul, IMMUNIZATIONS No Known Immunizations SOCIAL HISTORY Never Assessed REASON FOR VISIT Orders from Results PLAN OF CARE VITAL SIGNS MEDICATIONS Medication Instructions Dosage Frequency Start Date End Date Duration S tatus [place] 3 1000 MG Orally Once a day 3 capsules 24h Oct, Active RESULTS No Results PROCEDURES No Known [...] History Abses removed from [facility] May Hospitalization History miscarriage--over night stay 02/2017
--- OUTSIDE RECORDS SUMMARY | 2019-10-07 12:30 | XMS REPORT ---
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 Name Role Phone DAISY ROSEN Unavailable PROBLEMS Type Condition ICD9-CM Code [id number] Code Onset Dates Condition S tatus SNOMED Code Problem Type 2 diabetes mellitus E11.9 Activ e 85487404 Problem Hypercholesteremia E78.0 Active 1 5513189 Problem Fibrocystic breast, right N60.11 Acti ve 21334378 Problem Hypertriglyceridemia E78.1 Active 612798589 Problem Binge eating disorder F50.81 Active 374908300 Problem Abdominal pain, left upper quadrant R10.12 Active 581611338 Problem Surveillance of contraceptive injection Z30.42 Active 044798358 Problem 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 Active 70029937 Problem Hypothyroid E03.9 Active 33396219 Problem Cannabis use disorder, mild, abuse F12.10 Active 79910880 Problem Anxiety disorder, unspecified F41.9 Active 556249191 Problem Anxiety F41.9 Active 17160589 Problem Tobacco use Z72.0 Active 02844774 0 Problem Ganglion of joint M67.40 Active 78 500487 Problem Chest pain, unspecified R07.9 Active 67934636 Problem BMI 45.0-49.9, adult Z68.42 Active 336155125 Problem Fibrocystic breast, left N60.12 Activ e [id number] ALLERGIES No Information ENCOUNTERS Encounter Location Date Diagnosis [facility] [address] [facility] [id number] [address] [place] [phone] Feb, [facility] [address] [facility] [id number] [address] [place] [id number] 16 Feb, 2018 BMI 45.0-49.9, adult Z68.42 [facility] [address] [facility] [id number] [address] [place] [address] Jan, BMI 45.0-49.9, adult Z68.42 [place] [address] [address] Jan, [place] [address] [address] 24 Dec, 2017 History of miscarriage Z87.5 9 ; Type 2 diabetes mellitus E11.9 ; Hyperglycemia R73.9 ; Yeast vaginitis B37.3 ; BMI 45.0-49.9, adult Z68.42 and Binge eating disorder F50.81 [place] [address] [address] 17 Dec, 2017 BMI 45.0-49.9, adult Z68.42 ; Hypothyroid E03.9 and Type 2 diabetes mellitus E11.9 [place] [address] [address] 07 Dec, 2017 Onychomycosis B35.1 and Type 2 diabetes mellitus with diabetic neuropathy, 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 [place] [address] [address] Oct, Hypertriglyceridemia E78.1 [place] [address] [address] 16 Oct, 2017 Type 2 diabetes mellitus E11 .9 ; Hypercholesteremia E78.0 and Hypothyroid E03.9 [place] [address] [place] [id number] [address] [place] [address] Sep, BMI 45.0-49.9, adult Z68.42 [place] [address] [address] Sep, Type 2 diabetes mellitus E11 .9 [place] [address] [address] Sep, [place] [address] [address] Sep, Type 2 diabetes mellitus E11 .9 [place] [address] [address] Sep, Hypothyroid E03.9 ; Type 2 d iabetes mellitus E11.9 ; Toe pain, left M79.675 and BMI 45.0-49.9, adult Z68.42 [place] [address] [address] Jul, [facility] [address] [address] May, Influenza-like illness R69 a nd BMI 40.0-44.9, adult Z68.41 [place] [address] [address] May, Binge eating disorder F50.81 [place] [address] [address] Apr, [place] [address] [address] Apr, Binge eating disorder F50.81 [place] [address] [address] Mar, Binge eating disorder F50.81 [place] [address] [address] Feb, [place] [address] [address] Feb, Diabetes E11.9 ; Binge eatin g disorder F50.81 and BMI 40.0-44.9, adult Z68.41 [place] [address] [address] Jan, Anxiety disorder, unspecifie d F41.9 and Anxiety F41.9 [place] [address] [address] Jan, Anxiety disorder, unspecifie d F41.9 ; Cannabis use disorder, mild, abuse F12.10 and Adjustment disorder with mixed disturbance of em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 [facility] [address] [facility] [id number] [address] [place] [address] August, Hypothyroid E03.9 [facility] [address] [facility] [id number] [address] [place] [address] August, Type 2 diabetes mellitus E11 .9 [facility] [address] [id number] [address] [place] [address] Jun, [facility] [address] [facility] [id number] [address] [place] [address] Jun, Diabetes E11.9 ; Dysuria R30 .0 and Urinary tract infection without hematuria, site unspecified N39.0 [place] [address] [place] [id number] [address] [place] [address] Jun, [facility] [address] [facility] [id number] [address] [place] [address] May, [facility] [address] [facility] [id number] [address] [place] [address] Mar, [facility] [address] [facility] [id number] [address] [place] [address] Mar, Pain of left leg M79.605 [facility] [address] [facility] [id number] [address] [place] [address] Feb, [facility] [address] [facility] [id number] [address] [place] [address] Feb, Type 2 diabetes mellitus E11 .9 [facility] [address] [facility] [id number] [address] [place] [address] Jan, [facility] [address] [facility] [id number] [address] [place] [address] Jan, [facility] [address] [facility] [id number] [address] [place] [address] Jan, Discharge of breast N64.52 [facility] [address] [facility] [id number] [address] [place] [address] Jan, Menorrhagia N92.0 ; Encounte r for [...] Fibrocystic breast, left N60.12 and Anxiety F41.9 [place] [address] [facility] [id number] [address] [place] [address] Dec, Diabetes E11.9 ; Right foot pain M79.671 ; Left upper quadrant pain R10.12 ; Pain in right leg M79.604 ; Pain of left leg M79.605 ; Other chest pain R07.89 ; Palpitations R00.2 ; Hypothyroid E03.9 ; Discharge of breast N64.52 and Hyperlipidemia, unspecified hyperlipidemia type E78.[address] [id number] [address] [place] [address] Dec, [facility] [address] [facility] [id number] [address] [place] [address] Oct, [facility] [address] [facility] [id number] [address] [place] [address] Oct, [facility] [address] [facility] [id number] [address] [place] [address] Sep, [facility] [address] [address] August, [facility] [address] [place] [id number] [place] [address] August, [facility] [address] [place] [id number] [place] [address] Jul, Hypothyroid E03.9 [facility] [address] [address] Jun, [facility] [address] [place] [id number] [address] [place] [address] May, Menorrhagia N92.0 ; Diabetes E11.9 ; Hypothyroid E03.9 and Tobacco abuse Z72.0 [facility] [address] [place] [id number] [address] [place] [address] May, [facility] [address] [place] [id number] [address] [place] [address] May, Well woman exam Z01.419 ; BM I 45.0-49.9, adult Z68.42 ; Type 2 diabetes mellitus E11.9 ; Weight loss R63.4 ; Chest pain, unspecified R07.9 ; Hypercholesteremia E78.0 and Routine screening for STI (sexually transmitted infection) Z11.3 [facility] [address] [place] [id number] [address] [place] [address] May, [facility] [address] [place] [id number] [address] [place] [address] 04 Feb, 2016 Well woman exam Z01.419 ; En [...] Fibrocystic breast, left N60.12 and Anxiety F41.[address] [address] 04 May, [address] [address] Mar, [address] [address] Feb, [address] [address] Feb, Diabetes E11.9 ; Eustachian tube dysfunction, right H69.81 and Myalgia M79.[address] [address] Feb, [address] [address] Nov, Mastodynia, female 611.[address] [address] Oct, Obesity 278.[address] [address] Oct, Diabetes mellitus without me ntion of complication, type II or unspecified type, not stated as uncontrolled 250.00 ; Anxiety 300.00 and Obesity 278.[address] [address] Sep, [address] [id number] [address] [place] [address] Sep, Diabetes mellitus without me ntion of complication, type II or unspecified type, not stated as uncontrolled 250.00 and Anxiety 300.00 [facility] [address] [id number] [address] [place] [address] Sep, [facility] [address] [id number] [address] [place] [address] Jul, [facility] [address] [id number] [address] [place] [address] Jul, [facility] [address] [id number] [address] [place] [address] Jun, [facility] [address] [id number] [address] [place] [address] Jun, [facility] [address] [id number] [address] [place] [address] May, [facility] [address] [id number] [address] [place] [address] May, [facility] [address] [id number] [address] [place] [address] Apr, [facility] [address] [id number] [address] [place] [address] Apr, [facility] [address] [id number] [address] [place] [address] Apr, [facility] [address] [id number] [address] [place] [address] Apr, [facility] [address] [id number] [address] [place] [address] Apr, [facility] [address] [id number] [address] [place] [address] Apr, [facility] [address] [id number] [address] [place] [address] Apr, [facility] [address] [id number] [address] [place] [address], [place] [id number] Apr, [facility] [address] [id number] [address] [place] [address], [place] [id number] Apr, [facility] [address] [id number] [address] [place] [address], [place] [id number] Apr, [facility] [address] [id number] [address] [place] [address], [place] [id number] Apr, [facility] [address] [id number] [address] [place] [address], [place] [id number] Feb, [facility] [address] [id number] [address] [place] [address], [place] [id number] Feb, [facility] [address] [id number] [address] [place] [address], [place] [id number] Dec, [facility] [address] [id number] [address] [place] [address], [place] [id number] Dec, [facility] [address] [id number] [address] [place] [address], [place] [id number] Dec, [facility] [address] [id number] [address] [place] [address], [place] [id number] Dec, [facility] [address] [id number] [address] [place] [address], [place] [id number] Dec, [facility] [address] [id number] [address] [place] [address], [place] [id number] Dec, [facility] [address] [id number] [address] [place] [address], [place] [id number] Oct, [facility] [address] [id number] [address] [place] [address], [place] [id number] Oct, [facility] [address] [id number] [address] [place] [address], [place] [id number] Sep, [facility] [address] [id number] [address] [place] [address], [place] [id number] Sep, [facility] [address] [id number] [facility] [place] [id number] Sep, [facility] [address] [id number] [address] [place] [address], [place] [id number] Sep, [facility] [address] [id number] [address] [place] [address], [place] [id number] Sep, [facility] [address] [id number] [address] [place] [address], [place] [id number] Sep, [facility] [address] [id number] [address] [place] [address], [place] [id number] Sep, [facility] [address] [id number] [address] [place] [address], [place] [id number] Sep, [facility] [address] [id number] [address] [place] [address], [place] [id number] August, [facility] [address] [id number] [address] [place] [address], [place] [id number] August, [facility] [address] [id number] [address] [place] [address], [place] [id number] August, [facility] [address] [id number] [address] [place] [address], [place] [id number] August, [facility] [address] [id number] [address] [place] [address], [place] [id number] August, [facility] [address] [id number] [address] [place] [address], [place] [id number] August, [facility] [address] [id number] [address] [place] [address], [place] [id number] Jul, [facility] [address] [id number] [address] [place] [address], [place] [id number] Jul, [facility] [address] [id number] [address] [place] [address], [place] [id number] Jun, [facility] [address] [id number] [address] [place] [address], [place] [id number] Jun, [facility] [address] [id number] [address] [place] [address], [place] [id number] May, [facility] [address] [id number] [address] [place] [address], [place] [id number] Apr, [facility] [address] [id number] [address] [place] [address], [place] [id number] Apr, [facility] [address] [id number] [address] [place] [address], [place] [id number] Apr, [facility] [address] [id number] [address] [place] [address], [place] [id number] Apr, [facility] [address] [id number] [address] [place] [address], [place] [id number] Apr, [facility] [address] [id number] [address] [place] [address], [place] [id number] Apr, [facility] [address] [id number] [address] [place] [address], [place] [id number] Mar, [facility] [address] [id number] [address] [place] [address], [place] [id number] Mar, [facility] [address] [id number] [address] [place] [address], [place] [id number] Mar, [facility] [address] [id number] [address] [place] [address], [place] [id number] Mar, [facility] [address] [id number] [address] [place] [address], [place] [id number] Mar, [facility] [address] [id number] [address] [place] [address], [place] [id number] Mar, [facility] [address] [id number] [address] [place] [address], [place] [id number] 13 Mar, 2012 [facility] [address] [id number] [address] [address] Mar, [facility] [address] [id number] [address] [place] [phone] Mar, [facility] [address] [id number] [address] [place] [address] Mar, [facility] [address] [id number] [address] [place] [phone] Mar, [facility] [address] [id number] [address] [place] [id number] Mar, [facility] [address] [id number] [address] [place] [phone] Nov, [facility] [address] [id number] [address] [place] [phone] Nov, [facility] [address] [id number] [address] [place] [phone] Sep, [facility] [address] [id number] [address] [place] [phone] August, [facility] [address] [id number] [address] [place] [phone] August, [facility] [address] [id number] [address] [place] [phone] August, [facility] [address] [id number] [address] [place] [id number] August, [facility] [address] [id number] [address] [place] [phone] August, [facility] [address] [id number] [address] [place] [phone] Jul, IMMUNIZATIONS No Known Immunizations SOCIAL HISTORY Never Assessed REASON FOR VISIT Medication refill request PLAN OF CARE VITAL SIGNS MEDICATIONS Unknown [...] History surgeries Hospitalization History Abses removed from [facility] May Hospitalization History miscarriage--over night stay 02/2017
--- OUTSIDE RECORDS SUMMARY | 2019-10-07 12:31 | XMS REPORT ---
Author Author Dano ROSEN Organization [facility] Address [address] [place] [address] Care Team Providers Care Research Physiologist Name Role Phone DAISY ROSEN Unavailable PROBLEMS Type Condition ICD9-CM Code RGL64-BL Code Onset Dates Condition S tatus SNOMED Code Problem Type 2 diabetes mellitus E11.9 Activ e 35205595 Problem Hypercholesteremia E78.0 Active 1 0979150 Problem Fibrocystic breast, right N60.11 Acti ve 31689562 Problem Hypertriglyceridemia E78.1 Active 549690759 Problem Binge eating disorder F50.81 Active 954123429 Problem Abdominal pain, left upper quadrant R10.12 Active 045204189 Problem Surveillance of contraceptive injection Z30.42 Active 545236799 Problem 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 Active 41031876 Problem Hypothyroid E03.9 Active 89681455 Problem Cannabis use disorder, mild, abuse F12.10 Active 51784642 Problem Anxiety disorder, unspecified F41.9 Active 319049428 Problem Anxiety F41.9 Active 51882064 Problem Tobacco use Z72.0 Active 35578258 0 Problem Ganglion of joint M67.40 Active 78 969279 Problem Chest pain, unspecified R07.9 Active 39899974 Problem BMI 45.0-49.9, adult Z68.42 Active 149048395 Problem Fibrocystic breast, left N60.12 Activ e [id number] ALLERGIES No Information ENCOUNTERS Encounter Location Date Diagnosis [facility] [address] [facility] [id number] [address] [place] [address] Dec, [facility] [address] [facility] [id number] [address] [place] [address] Oct, Hypertriglyceridemia E78.1 [facility] [address] [facility] [id number] [address] [place] [address] Oct, Type 2 diabetes mellitus E11 .9 ; Hypercholesteremia E78.0 and Hypothyroid E03.9 [facility] [address] [place] [id number] [address] [place] [address] Sep, BMI 45.0-49.9, adult Z68.42 [facility] [address] [place] [id number] [address] [place] [address] Sep, Type 2 diabetes mellitus E11 .9 [facility] [address] [place] [id number] [address] [place] [address] Sep, [facility] [address] [place] [id number] [place] [address] Sep, Type 2 diabetes mellitus E11 .9 [facility] [address] [place] [id number] [address] [place] [address] Sep, Hypothyroid E03.9 ; Type 2 d iabetes mellitus E11.9 ; Toe pain, left M79.675 and BMI 45.0-49.9, adult Z68.42 [facility] [address] [place] [id number] [address] [place] [address] Jul, [facility] [address] [place] [id number] [address] [place] [address] May, Influenza-like illness R69 a nd BMI 40.0-44.9, adult Z68.41 [facility] [address] [place] [id number] [address] [place] [address] May, Binge eating disorder F50.81 [facility] [address] [facility] [id number] [address] [place] [address] Apr, [place] [address] [place] [id number] [address] [place] [address] Apr, Binge eating disorder F50.81 [facility] [address] [place] [id number] [address] [place] [address] Mar, Binge eating disorder F50.81 [place] [address] [place] [id number] [address] [place] [address] Feb, [address] [address] Feb, Diabetes E11.9 ; Binge eatin g disorder F50.81 and BMI 40.0-44.9, adult Z68.[address] [address] Jan, Anxiety disorder, unspecifie d F41.9 and Anxiety F41.9 [place] [address] [place] [id number] [place] [address] Jan, Anxiety disorder, unspecifie d F41.9 ; Cannabis use disorder, mild, abuse F12.10 and Adjustment disorder with mixed disturbance of em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 [address] August, Hypothyroid E03.9 [place] [address] [address] August, Type 2 diabetes mellitus E11 .[address] [address] Jun, [place] [address] [address] Jun, Diabetes E11.9 ; Dysuria R30 .0 and Urinary tract infection without hematuria, site unspecified N39.0 [place] [address] [place] [id number] [address] [place] [address] Jun, [address] [address] May, [place] [address] [place] [id number] [address] [place] [address] Mar, [address] [address] Mar, Pain of left leg M79.605 [facility] [address] [facility] [id number] [address] [place] [address] Feb, [facility] [address] [facility] [id number] [address] [place] [address] Feb, Type 2 diabetes mellitus E11 .9 [facility] [address] [facility] [id number] [address] [place] [address] Jan, [facility] [address] [facility] [id number] [address] [place] [address] Jan, [facility] [address] [facility] [id number] [address] [place] [address] Jan, Discharge of breast N64.52 [facility] [address] [facility] [id number] [address] [place] [id number] 03 Jan, 2016 Menorrhagia N92.0 ; Encounte [...] Fibrocystic breast, left N60.12 and Anxiety F41.9 [facility] [address] [id number] [address] [place] [address] Dec, Diabetes E11.9 ; Right foot pain M79.671 ; Left upper quadrant pain R10.12 ; Pain in right leg M79.604 ; Pain of left leg M79.605 ; Other chest pain R07.89 ; Palpitations R00.2 ; Hypothyroid E03.9 ; Discharge of breast N64.52 and Hyperlipidemia, unspecified hyperlipidemia type E78.5 [facility] [address] [id number] [address] [place] [address] Dec, [facility] [address] [id number] [address] [place] [address] Oct, [facility] [address] [facility] [id number] [address] [place] [phone] Oct, [facility] [address] [id number] [address] [place] [address] Sep, [facility] [address] [facility] [id number] [address] [place] [phone] August, [facility] [address] [id number] [address] [place] [address] August, [facility] [address] [facility] [id number] [address] [place] [address] Jul, Hypothyroid E03.9 [facility] [address] [id number] [address] [place] [address] Jun, [facility] [address] [facility] [id number] [address] [place] [address] May, Menorrhagia N92.0 ; Diabetes E11.9 ; Hypothyroid E03.9 and Tobacco abuse Z72.0 [facility] [address] [facility] [id number] [address] [place] [address] May, [place] [address] [place] [id number] [address] [place] [address] 09 May, 2015 Well woman exam Z01.419 ; BM I 45.0-49.9, adult Z68.42 ; Type 2 diabetes mellitus E11.9 ; Weight loss R63.4 ; Chest pain, unspecified R07.9 ; Hypercholesteremia E78.0 and Routine screening for STI (sexually transmitted infection) Z11.3 [place] [address] [address] 05 May, 2015 [place] [address] [address] 04 May, 2015 Well woman exam Z01.419 [...] Fibrocystic breast, left N60.12 and Anxiety F41.[address] [address] 04 May, 2015 [place] [address] [address] Mar, [place] [address] [address] Feb, [address] [address] Feb, Diabetes E11.9 ; Eustachian tube dysfunction, right H69.81 and Myalgia M79.[address] [address] Feb, [place] [address] [id number] [address] [place] [address] Nov, Mastodynia, female 611.71 [facility] [address] [id number] [address] [place] [address] Oct, Obesity 278.00 [facility] [address] [facility] [id number] [address] [place] [address] Oct, Diabetes mellitus without me ntion of complication, type II or unspecified type, not stated as uncontrolled 250.00 ; Anxiety 300.00 and Obesity 278.00 [facility] [address] [id number] [address] [place] [address] Sep, [facility] [address] [facility] [id number] [address] [place] [address] Sep, Diabetes mellitus without me ntion of complication, type II or unspecified type, not stated as uncontrolled 250.00 and Anxiety 300.00 [facility] [address] [id number] [address] [place] [address] Sep, [facility] [address] [id number] [address] [place] [phone] Jul, [facility] [address] [facility] [id number] [address] [place] [phone] Jul, [facility] [address] [id number] [address] [place] [address] Jun, [facility] [address] [id number] [address] [place] [phone] Jun, [facility] [address] [id number] [address] [place] [phone] May, [facility] [address] [id number] [address] [place] [phone] May, [facility] [address] [facility] [id number] [address] [place] [phone] Apr, [facility] [address] [id number] [address] [place] [address], [place] [address] Apr, [facility] [address] [id number] [address] [place] [address], [place] [address] Apr, [facility] [address] [id number] [address] [place] [address], [place] [address] Apr, [facility] [address] [id number] [address] [place] [address], [place] [address] Apr, [facility] [address] [id number] [address] [place] [address], [place] [address] Apr, [facility] [address] [id number] [address] [place] [address], [place] [address] Apr, [facility] [address] [id number] [address] [place] [address], [place] [address] Apr, [facility] [address] [id number] [address] [place] [address], [place] [address] Apr, [facility] [address] [id number] [address] [place] [address], [place] [address] Apr, [facility] [address] [id number] [address] [place] [address], [place] [address] Apr, [facility] [address] [id number] [address] [place] [address], [place] [address] Feb, [facility] [address] [id number] [address] [place] [address], [place] [address] Feb, [facility] [address] [id number] [address] [place] [address], [place] [address] Dec, [facility] [address] [id number] [address] [place] [address], [place] [address] Dec, [facility] [address] [id number] [address] [place] [address], [place] [address] Dec, [facility] [address] [id number] [address] [place] [address], [place] [address] Dec, [facility] [address] [id number] [facility] [address] Dec, [facility] [address] [id number] [facility] [place] [address] Dec, [facility] [address] [id number] [facility] [address] Oct, [facility] [address] [id number] [address] [place] [address], [place] [address] Oct, [facility] [address] [id number] [address] [place] [address], [place] [address] Sep, [facility] [address] [id number] [address] [place] [address], [place] [address] Sep, [facility] [address] [id number] [address] [place] [address], [place] [address] Sep, [facility] [address] [id number] [address] [place] [address], [place] [address] Sep, [facility] [address] [id number] [address] [place] [address], [place] [address] Sep, [facility] [address] [id number] [address] [place] [address], [place] [address] Sep, [facility] [address] [id number] [address] [place] [address], [place] [address] Sep, [facility] [address] [id number] [address] [place] [address], [place] [address] Sep, [facility] [address] [id number] [address] [place] [address], [place] [address] August, [facility] [address] [id number] [address] [place] [address], [place] [address] August, [facility] [address] [id number] [address] [place] [address], [place] [address] August, [facility] [address] [id number] [address] [place] [address], [place] [address] August, [facility] [address] [id number] [address] [place] [address], [place] [address] August, [facility] [address] [id number] [address] [place] [address], [place] [address] August, [facility] [address] [id number] [address] [place] [address], [place] [address] Jul, [facility] [address] [id number] [address] [place] [address], [place] [address] Jul, [facility] [address] [id number] [address] [place] [address], [place] [address] Jun, [facility] [address] [id number] [address] [place] [address], [place] [address] Jun, [facility] [address] [id number] [address] [place] [address], [place] [address] May, [facility] [address] [id number] [address] [place] [address], [place] [address] Apr, [facility] [address] [id number] [address] [place] [address], [place] [address] Apr, [facility] [address] [id number] [address] [place] [address], [place] [address] Apr, [facility] [address] [id number] [address] [place] [address], [place] [address] Apr, [facility] [address] [id number] [address] [place] [address], [place] [address] Apr, [facility] [address] [id number] [address] [place] [address], [place] [address] Apr, [facility] [address] [id number] [address] [place] [address], [place] [address] Mar, [facility] [address] [id number] [address] [place] [address], [place] [address] Mar, [facility] [address] [id number] [address] [place] [address], [place] [address] Mar, [facility] [address] [id number] [address] [place] [address], [place] [address] Mar, [facility] [address] [id number] [address] [place] [address], [place] [address] Mar, [facility] [address] [id number] [address] [place] [address], [place] [address] Mar, [facility] [address] [id number] [address] [place] [address], [place] [address] Mar, [facility] [address] [id number] [address] [place] [address], [place] [address] Mar, [facility] [address] [id number] [address] [place] [address], [place] [address] Mar, [facility] [address] [id number] [address] [place] [address], [place] [address] Mar, [facility] [address] [id number] [address] [place] [address], [place] [address] Mar, [facility] [address] [id number] [address] [place] [address], [place] [address] Mar, [facility] [address] [id number] [address] [place] [address], [place] [address] Nov, [facility] [address] [id number] [address] [place] [address], [place] [address] Nov, [facility] [address] [id number] [address] [place] [address], [place] [address] Sep, [facility] [address] [id number] [address] [place] [address], [place] [address] August, [facility] [address] [id number] [address] [place] [address], [place] [address] August, [facility] [address] [id number] [address] [place] [address], [place] [address] August, [facility] [address] [facility] [id number] [address] [place] [address] August, [facility] [address] [facility] [id number] [address] [place] [address] August, [facility] [address] [facility] [id number] [address] [place] [address] Jul, IMMUNIZATIONS No Known Immunizations SOCIAL HISTORY Never Assessed REASON FOR VISIT Prior Authorization Request PLAN OF CARE VITAL SIGNS MEDICATIONS Unknown [...] History surgeries Hospitalization History Abses removed from [facility] May Hospitalization History miscarriage--over night stay 02/2017
--- OUTSIDE RECORDS SUMMARY | 2019-10-07 12:31 | XMS REPORT ---
Author Author Dano ROSEN Organization [facility] Address [address] [place] [address] Care Team Providers Care Community Support Specialist Name Role Phone DAISY ROSEN Unavailable PROBLEMS Type Condition ICD9-CM Code DPN39-GZ Code Onset Dates Condition S tatus SNOMED Code Problem Type 2 diabetes mellitus E11.9 Activ e 54173391 Problem Hypercholesteremia E78.0 Active 1 3989537 Problem Fibrocystic breast, right N60.11 Acti ve 64967773 Problem Hypertriglyceridemia E78.1 Active 700290475 Problem Binge eating disorder F50.81 Active 802698753 Problem Abdominal pain, left upper quadrant R10.12 Active 249768129 Problem Surveillance of contraceptive injection Z30.42 Active 612957227 Problem 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 Active 54832303 Problem Hypothyroid E03.9 Active 30605945 Problem Cannabis use disorder, mild, abuse F12.10 Active 23025064 Problem Anxiety disorder, unspecified F41.9 Active 478318919 Problem Anxiety F41.9 Active 82360221 Problem Tobacco use Z72.0 Active 45129961 0 Problem Ganglion of joint M67.40 Active 78 854293 Problem Chest pain, unspecified R07.9 Active 81147184 Problem BMI 45.0-49.9, adult Z68.42 Active 633757072 Problem Fibrocystic breast, left N60.12 Activ e 38535043 ALLERGIES Substance Reaction Event Type Date Status Levemir hives Drug Allergy Sep, Active ENCOUNTERS Encounter Location Date Diagnosis [facility] [address] [facility] [id number] [address] [place] [phone] Dec, [facility] [address] [facility] [id number] [address] [place] [id number] Oct, Hypertriglyceridemia E[address].1 [facility] [address] [place] [phone] Oct, Type 2 diabetes mellitus E11 .9 ; Hypercholesteremia E78.[address] [facility] [address] [place] [id number] [address] [place] [id number] Sep, BMI 45.0-49.9, adult Z68.42 [facility] [address] [address] Sep, Type 2 diabetes mellitus E11 .9 [facility] [address] [address] Sep, [place] [address] [address] Sep, Type 2 diabetes mellitus E11 .9 [place] [address] [address] Sep, Hypothyroid E03.9 ; Type 2 d iabetes mellitus E11.9 ; Toe pain, left M79.675 and BMI 45.0-49.9, adult Z68.42 [place] [address] [place] [id number] [address] [place] [phone] Jul, [facility] [address] [place] [id number] [address] [place] [phone] May, Influenza-like illness R69 a nd BMI 40.0-44.9, adult Z68.41 [facility] [address] [place] [id number] [address] [place] [phone] May, Binge eating disorder F50.81 [place] [address] [place] [id number] [address] [place] [phone] Apr, [place] [address] [place] [id number] [address] [place] [phone] Apr, Binge eating disorder F50.81 [facility] [address] [place] [id number] [address] [place] [phone] Mar, Binge eating disorder F50.81 [place] [address] [place] [phone] Feb, [place] [address] [address] Feb, Diabetes E11.9 ; Binge eatin g disorder F50.81 and BMI 40.0-44.9, adult Z68.[address] [address] Jan, Anxiety disorder, unspecifie d F41.9 and Anxiety F41.[address] [address] Jan, Anxiety disorder, unspecifie d F41.9 ; Cannabis use disorder, mild, abuse F12.10 and Adjustment disorder with mixed disturbance of em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 [address] August, Hypothyroid E03.9 [place] [address] [address] August, Type 2 diabetes mellitus E11 .9 [place] [address] [place] [id number] [place] [phone] Jun, [place] [address] [address] Jun, Diabetes E11.9 ; Dysuria R30 .0 and Urinary tract infection without hematuria, site unspecified N39.0 [place] [address] [place] [id number] [address] [place] [phone] Jun, [place] [address] [address] May, [place] [address] [place] [id number] [address] [place] [address] Mar, [place] [address] [place] [address] Mar, Pain of left leg M79.605 [facility] [address] [place] [id number] [address] [place] [phone] Feb, [facility] [address] [place] [id number] [address] [place] [phone] Feb, Type 2 diabetes mellitus E11 .9 [facility] [address] [place] [id number] [address] [place] [phone] Jan, [facility] [address] [place] [id number] [address] [place] [phone] Jan, [facility] [address] [place] [id number] [address] [place] [phone] Jan, Discharge of breast N64.52 [facility] [address] [place] [id number] [address] [place] [phone] 03 Jan, 2016 Menorrhagia N92.0 ; Encounte [...] breast, left N60.[address] [facility] [address] [facility] [id number] [address] [place] [address] Dec, Diabetes E11.9 ; Right foot pain M79.671 ; Left upper quadrant pain R10.12 ; Pain in right leg M79.604 ; Pain of left leg M79.605 ; Other chest pain R07.89 ; Palpitations R00.2 ; Hypothyroid E03.9 ; Discharge of breast N64.52 and Hyperlipidemia, unspecified hyperlipidemia type E78.5 [facility] [address] [facility] [id number] [address] [place] [phone] Dec, [facility] [address] [place] [id number] [address] [place] [phone] Oct, [facility] [address] [facility] [id number] [address] [place] [phone] Oct, [facility] [address] [facility] [id number] [address] [place] [phone] Sep, [facility] [address] [facility] [id number] [address] [place] [phone] August, [facility] [address] [facility] [id number] [address] [place] [id number] August, [facility] [address] [facility] [id number] [address] [place] [id number] Jul, Hypothyroid E03.9 [facility] [address] [facility] [id number] [address] [place] [phone] Jun, [facility] [address] [place] [id number] [address] [place] [phone] May, Menorrhagia N92.0 ; Diabetes E11.9 ; Hypothyroid E03.9 and Tobacco abuse Z72.0 [facility] [address] [place] [id number] [address] [place] [id number] 15 May, 2015 [place] [address] [place] [id number] [address] [place] [id number] 09 May, 2015 Well woman exam Z01.419 ; BM I 45.0-49.9, adult Z68.42 ; Type 2 diabetes mellitus E11.9 ; Weight loss R63.4 ; Chest pain, unspecified R07.9 ; Hypercholesteremia E78.0 and Routine screening for STI (sexually transmitted infection) Z11.3 [place] [address] [address] 05 May, [address] [address] 04 May, 2015 Well woman exam Z01.419 [...] Fibrocystic breast, left N60.12 and Anxiety F41.9 [place] [id number] [address] [place] [phone] May, [place] [address] [place] [id number] [address] [place] [phone] Mar, [place] [address] [address] Feb, [address] [address] Feb, Diabetes E11.9 ; Eustachian tube dysfunction, right H69.81 and Myalgia M79.[address] [address] Feb, [facility] [address] [id number] [address] [place] [phone] Nov, Mastindra, female 611.71 [facility] [address] [id number] [address] [place] [phone] Oct, Obesity 278.00 [facility] [address] [id number] [address] [place] [address] Oct, Diabetes mellitus without me ntion of complication, type II or unspecified type, not stated as uncontrolled 250.00 ; Anxiety 300.[address] [facility] [address] [id number] [address] [place] [id number] Sep, [facility] [address] [facility] [id number] [address] [place] [phone] Sep, Diabetes mellitus without me ntion of complication, type II or unspecified type, not stated as uncontrolled 250.[address] [facility] [address] [id number] [address] [place] [phone] Sep, [facility] [address] [id number] [address] [place] [phone] Jul, [facility] [address] [facility] [id number] [address] [place] [phone] Jul, [facility] [address] [id number] [address] [place] [phone] Jun, [facility] [address] [id number] [address] [place] [phone] Jun, [facility] [address] [facility] [id number] [address] [place] [phone] May, [facility] [address] [id number] [address] [place] [phone] May, [facility] [address] [facility] [id number] [address] [place] [phone] Apr, [facility] [address] [id number] [address] [place] [address], [place] [address] Apr, [facility] [address] [id number] [address] [place] [address], [place] [address] Apr, [facility] [address] [id number] [address] [place] [address], [place] [address] Apr, [facility] [address] [id number] [address] [place] [address], [place] [address] Apr, [facility] [address] [id number] [address] [place] [address], [place] [address] Apr, [facility] [address] [id number] [address] [place] [address], [place] [address] Apr, [facility] [address] [id number] [address] [place] [address], [place] [address] Apr, [facility] [address] [id number] [address] [place] [address], [place] [address] Apr, [facility] [address] [id number] [address] [place] [address], [place] [address] Apr, [facility] [address] [id number] [address] [place] [address], [place] [address] Apr, [facility] [address] [id number] [address] [place] [address], [place] [address] Feb, [facility] [address] [id number] [address] [place] [phone] Feb, [facility] [address] [id number] [address] [place] [address], [place] [address] Dec, [facility] [address] [id number] [address] [place] [address], [place] [address] Dec, [facility] [address] [id number] [address] [place] [address], [place] [address] Dec, [facility] [address] [id number] [address] [place] [address], [place] [address] 04 Dec, 2013 [facility] [address] [id number] [address] [place] [address], [place] [address] Dec, [facility] [place] [facility] [address] [id number] [address] [place] [address], [place] [address] Dec, [facility] [address] [id number] [address] [place] [address], [place] [address] Oct, [facility] [place] [facility] [address] [id number] [address] [place] [address], [place] [address] Oct, [facility] [address] [id number] [address] [place] [address], [place] [address] Sep, [facility] [address] [id number] [address] [place] [address], [place] [address] Sep, [facility] [address] [id number] [address] [place] [address], [place] [address] Sep, [facility] [address] [id number] [address] [place] [address], [place] [address] Sep, [facility] [address] [id number] [address] [place] [address], [place] [address] Sep, [facility] [address] [id number] [address] [place] [address], [place] [address] Sep, [facility] [place] [facility] [address] [id number] [address] [place] [address], [place] [address] Sep, [facility] [place] [facility] [address] [id number] [address] [place] [address], [place] [address] Sep, [facility] [place] [facility] [address] [id number] [address] [place] [address], [place] [address] August, [facility] [place] [facility] [address] [id number] [address] [place] [address], [place] [address] August, [facility] [place] [facility] [address] [id number] [address] [place] [address], [place] [address] August, [facility] [place] [facility] [address] [id number] [address] [place] [address], [place] [address] August, [facility] [address] [id number] [address] [place] [address], [place] [address] August, [facility] [address] [id number] [address] [place] [address], [place] [address] August, [facility] [address] [id number] [address] [place] [address], [place] [address] Jul, [facility] [address] [id number] [address] [place] [address], [place] [address] Jul, [facility] [address] [id number] [address] [place] [address], [place] [address] Jun, [facility] [address] [id number] [address] [place] [address], [place] [address] Jun, [facility] [address] [id number] [address] [place] [address], [place] [address] May, [facility] [address] [id number] [address] [place] [address], [place] [address] Apr, [facility] [address] [id number] [address] [place] [address], [place] [address] Apr, [facility] [address] [id number] [address] [place] [address], [place] [address] Apr, [facility] [address] [id number] [address] [place] [address], [place] [address] Apr, [facility] [address] [id number] [address] [place] [address], [place] [address] Apr, [facility] [address] [id number] [address] [place] [address], [place] [address] Apr, [facility] [address] [id number] [address] [place] [address], [place] [address] Mar, [facility] [address] [id number] [address] [place] [address], [place] [address] Mar, [facility] [address] [id number] [address] [place] [address], [place] [address] Mar, [facility] [address] [id number] [address] [place] [address], [place] [address] Mar, [facility] [address] [id number] [address] [place] [address], [place] [address] Mar, [facility] [address] [id number] [address] [place] [address], [place] [address] Mar, [facility] [address] [id number] [address] [place] [address], [place] [address] Mar, [facility] [address] [id number] [address] [place] [address], [place] [address] Mar, [facility] [address] [id number] [address] [place] [address], [place] [address] Mar, [facility] [address] [id number] [address] [place] [address], [place] [address] Mar, [facility] [address] [id number] [address] [place] [address], [place] [address] Mar, [facility] [address] [id number] [address] [place] [address], [place] [address] Mar, [facility] [address] [id number] [address] [place] [address], [place] [address] Nov, [facility] [address] [id number] [address] [place] [address], [place] [address] Nov, [facility] [address] [id number] [address] [place] [address], [place] [address] Sep, [facility] [address] [id number] [address] [place] [address], [place] [address] August, [facility] [address] [id number] [address] [place] [address], [place] [address] August, [facility] [address] [id number] [address] [place] [address] August, [facility] [address] [facility] [id number] [address] [place] [address] August, [facility] [address] [facility] [id number] [address] [place] [address] August, [facility] [address] [facility] [id number] [address] [place] [id number] Jul, IMMUNIZATIONS No Known Immunizations SOCIAL HISTORY Never Assessed REASON FOR VISIT ADHD WB-MA, PT is having pain with the left big toe PLAN OF CARE Activity Details Follow Up 6 Weeks Reason:DM VITAL SIGNS Height 64 in 2017-09-28 Weight 276 lbs 2017-09-28 Temperature 98.4 degrees Fahrenheit 2017-09-28 Heart Rate 102 bpm 2017-09-28 Respiratory Rate 20 2017-09-28 BMI 47.37 kg/m2 2017-09-28 Blood pressure systolic 116 mmHg 2017-09-28 Blood pressure diastolic 74 mmHg 2017-09-28 MEDICATIONS Medication Instructions Dosage Frequency Start Date End Date Duration S tatus MetFORMIN HCl ER 500 MG Orally 2 times a day 2 tablets 12h 90 days Active Vyvanse 30 MG Orally Once a day 1 capsule in the morning 24h Apr, 28 days Active Chantix Starting Month Jesus 0.5 MG X 11 & 1 MG X 42 as dire cted May, Not-Taking Depo-Provera 150 MG/ML 1 ml N ot-Taking Levothyroxine Sodium 75 MCG Orally Once a day 1 tablet 24h 90 days Active GlyBURIDE 5 MG Orally Once a day 1 tablet with breakf ast or the first main meal of the day 24h 90 days Active TRUEtest Test - In Vitro 3 times a day test blood sugar 8h 90 days Active Victoza 18 MG/3ML Subcutaneous Once a day inject 1.8 MG 24h 90 days Not-Taking Flonase 50 MCG/ACT Nasally 2 times a day 1 spray in each nostril 12 h 12 Feb, 2015 Not-Taking HydrOXYzine Pamoate 25 MG Orally every 8 hrs prn anxiety 1-2 cap portia as needed Sep, 30 day(s) Not-Taking Diflucan 150 MG TAKE ONE TABLET BY MOUTH NOW AND REPEAT IN 4-5 DAYS NEEDED 4 Not-Taking Actos 45 MG Orally Once a day 1 tablet 24h 23 May, 2015 Not-Taking Trulicity 0.75 MG/0.5ML Subcutaneous once weekly Inject 0.75 mg Sep, 12 Weeks Active Vyvanse 30 MG Orally Once a day 1 capsule in the morning 24h 15 Feb, 2017 Not-Taking UltiCare Micro Pen [place] 32G X 4 MM as directed for use with Lantus Pen injector 90 days Active Lantus SoloStar 100 UNIT/ML Subcutaneous Once a day Inject 40 units 24h Sep, 90 days Active Tramadol HCl 50 MG Orally every 6 hrs 1 tablet as needed 6h Not-Taking Hydrocodone-Acetaminophen 10-325 MG Orally 4 times a day 1 tablet a s needed 6h Not-Taking Excedrin Migraine 250-250-65 MG Orally every 6 hrs 2 tablets as needed 6 h Active Ondansetron 8 MG Orally every 4 hours as needed 1 tablet Not-Taking Lipitor 40 MG Orally Once a day 1 tablet 24h Sep, 30 day(s) Not-Taking RESULTS Name Result Date Reference Range A1C (IN HOUSE) 2017-09-28 A1C IN HOUSE 11.9 4.3 - 5.6 % Previous A1c 8.8 Lot [id number] Exp date 06/2019 MICROALBUMIN, URINE (IN HOUSE) 2017-09-28 MICROALBUMIN Abnormal Lot # [id number] Exp date 07/2018 Clarity clear Color yellow ALB 30 CRE 100 A:C (IN HOUSE) 30-300 Control Control Lot # Exp date Xray : Foot, Left 2 views (IN HOUSE) 2017-09-28 PROCEDURES Procedure Date Ordered Result Body Site X-RAY EXAM OF FOOT September 28, 2017 GLYCATED HEMOGLOBIN TEST September 28, 2017 MICROALBUMIN, SEMIQUANT September 28, 2017 INSTRUCTIONS MEDICATIONS ADMINISTERED No Known Medications [...] History surgeries Hospitalization History Abses removed from [facility] May Hospitalization History miscarriage--over night stay 02/2017
--- OUTSIDE RECORDS SUMMARY | 2019-10-07 12:31 | XMS REPORT ---
Author Author Dano ROSEN Organization [facility] Address [address] [place] [address] Care Team Providers Care Dental Nurse Name Role Phone DAISY ROSEN Unavailable PROBLEMS Type Condition ICD9-CM Code CEK37-TT Code Onset Dates Condition S tatus SNOMED Code Problem Type 2 diabetes mellitus E11.9 Activ e 98661295 Problem Hypercholesteremia E78.0 Active 1 2526643 Problem Fibrocystic breast, right N60.11 Acti ve 86261019 Problem Hypertriglyceridemia E78.1 Active 580744905 Problem Binge eating disorder F50.81 Active 603359967 Problem Abdominal pain, left upper quadrant R10.12 Active 870204892 Problem Surveillance of contraceptive injection Z30.42 Active 588351315 Problem 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 [id number] [address] [place] [address] Dec, [facility] [address] [facility] [id number] [address] [place] [address] Oct, Hypertriglyceridemia E78.1 [facility] [address] [id number] [address] [place] [address] Oct, Type 2 diabetes mellitus E11 .9 ; Hypercholesteremia E78.0 and Hypothyroid E03.9 [facility] [address] [place] [id number] [address] [place] [address] Sep, BMI 45.0-49.9, adult Z68.42 [facility] [address] [place] [id number] [address] [place] [address] Sep, Type 2 diabetes mellitus E11 .9 [facility] [address] [place] [id number] [address] [place] [address] Sep, [facility] [address] [place] [id number] [place] [address] Sep, Type 2 diabetes mellitus E11 .9 [facility] [address] [place] [id number] [address] [place] [address] Sep, Hypothyroid E03.9 ; Type 2 d iabetes mellitus E11.9 ; Toe pain, left M79.675 and BMI 45.0-49.9, adult Z68.42 [facility] [address] [place] [id number] [address] [place] [address] Jul, [facility] [address] [place] [id number] [address] [place] [address] May, Influenza-like illness R69 a nd BMI 40.0-44.9, adult Z68.41 [facility] [address] [place] [id number] [address] [place] [address] May, Binge eating disorder F50.81 [facility] [address] [facility] [id number] [address] [place] [address] Apr, [place] [address] [place] [id number] [address] [place] [address] Apr, Binge eating disorder F50.81 [facility] [address] [place] [id number] [address] [place] [address] Mar, Binge eating disorder F50.81 [place] [address] [place] [id number] [address] [place] [address] Feb, [address] [address] Feb, Diabetes E11.9 ; Binge eatin g disorder F50.81 and BMI 40.0-44.9, adult Z68.[address] [address] Jan, Anxiety disorder, unspecifie d F41.9 and Anxiety F41.9 [place] [address] [place] [id number] [place] [address] Jan, Anxiety disorder, unspecifie d F41.9 ; Cannabis use disorder, mild, abuse F12.10 and Adjustment disorder with mixed disturbance of em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 [address] August, Hypothyroid E03.9 [place] [address] [address] August, Type 2 diabetes mellitus E11 .[address] [address] Jun, [place] [address] [address] Jun, Diabetes E11.9 ; Dysuria R30 .0 and Urinary tract infection without hematuria, site unspecified N39.0 [place] [address] [place] [id number] [address] [place] [address] Jun, [address] [address] May, [place] [address] [place] [id number] [address] [place] [address] Mar, [address] [address] Mar, Pain of left leg M79.605 [facility] [address] [id number] [address] [place] [address] Feb, [facility] [address] [facility] [id number] [address] [place] [address] Feb, Type 2 diabetes mellitus E11 .9 [facility] [address] [id number] [address] [place] [address] Jan, [facility] [address] [facility] [id number] [address] [place] [address] Jan, [facility] [address] [facility] [id number] [address] [place] [address] Jan, Discharge of breast N64.52 [facility] [address] [id number] [address] [place] [address] 03 Jan, 2016 Menorrhagia N92.0 ; Encounte [...] Fibrocystic breast, left N60.12 and Anxiety F41.9 [facility] [address] [id number] [address] [place] [address] Dec, Diabetes E11.9 ; Right foot pain M79.671 ; Left upper quadrant pain R10.12 ; Pain in right leg M79.604 ; Pain of left leg M79.605 ; Other chest pain R07.89 ; Palpitations R00.2 ; Hypothyroid E03.9 ; Discharge of breast N64.52 and Hyperlipidemia, unspecified hyperlipidemia type E78.5 [facility] [address] [id number] [address] [place] [address] Dec, [facility] [address] [id number] [address] [place] [address] Oct, [facility] [address] [facility] [id number] [address] [place] [address] Oct, [facility] [address] [id number] [address] [place] [address] Sep, [facility] [address] [facility] [id number] [address] [place] [address] August, [facility] [address] [id number] [address] [place] [address] August, [facility] [address] [facility] [id number] [address] [place] [address] Jul, Hypothyroid E03.9 [facility] [address] [id number] [address] [place] [address] Jun, [facility] [address] [facility] [id number] [address] [place] [address] May, Menorrhagia N92.0 ; Diabetes E11.9 ; Hypothyroid E03.9 and Tobacco abuse Z72.0 [facility] [address] [facility] [id number] [address] [place] [address] May, [place] [address] [place] [id number] [address] [place] [address] 09 May, 2015 Well woman exam Z01.419 ; BM I 45.0-49.9, adult Z68.42 ; Type 2 diabetes mellitus E11.9 ; Weight loss R63.4 ; Chest pain, unspecified R07.9 ; Hypercholesteremia E78.0 and Routine screening for STI (sexually transmitted infection) Z11.3 [place] [address] [address] 05 May, 2015 [place] [address] [address] 04 May, 2015 Well woman exam Z01.419 [...] Fibrocystic breast, left N60.12 and Anxiety F41.[address] [address] 04 May, 2015 [place] [address] [address] Mar, [place] [address] [address] Feb, [address] [address] Feb, Diabetes E11.9 ; Eustachian tube dysfunction, right H69.81 and Myalgia M79.[address] [address] Feb, [place] [address] [id number] [address] [place] [address] Nov, Mastodynia, female 611.71 [facility] [address] [id number] [address] [place] [address] Oct, Obesity 278.00 [facility] [address] [facility] [id number] [address] [place] [address] Oct, Diabetes mellitus without me ntion of complication, type II or unspecified type, not stated as uncontrolled 250.00 ; Anxiety 300.00 and Obesity 278.00 [facility] [address] [id number] [address] [place] [address] Sep, [facility] [address] [facility] [id number] [address] [place] [address] Sep, Diabetes mellitus without me ntion of complication, type II or unspecified type, not stated as uncontrolled 250.00 and Anxiety 300.00 [facility] [address] [id number] [address] [place] [address] Sep, [facility] [address] [id number] [address] [place] [address] Jul, [facility] [address] [facility] [id number] [address] [place] [address] Jul, [facility] [address] [id number] [address] [place] [address] Jun, [facility] [address] [id number] [address] [place] [address] Jun, [facility] [address] [id number] [address] [place] [address] May, [facility] [address] [id number] [address] [place] [address] May, [facility] [address] [facility] [id number] [address] [place] [address] Apr, [facility] [address] [id number] [address] [place] [address], [place] [address] Apr, [facility] [address] [id number] [address] [place] [address], [place] [address] Apr, [facility] [address] [id number] [address] [place] [address], [place] [address] Apr, [facility] [address] [id number] [address] [place] [address], [place] [address] Apr, [facility] [address] [id number] [address] [place] [address], [place] [address] Apr, [facility] [address] [id number] [address] [place] [address], [place] [address] Apr, [facility] [address] [id number] [address] [place] [address], [place] [address] Apr, [facility] [address] [id number] [address] [place] [address], [place] [address] Apr, [facility] [address] [id number] [address] [place] [address], [place] [address] Apr, [facility] [address] [id number] [address] [place] [address], [place] [address] Apr, [facility] [address] [id number] [address] [place] [address], [place] [address] Feb, [facility] [address] [id number] [address] [place] [address], [place] [address] Feb, [facility] [address] [id number] [address] [place] [address], [place] [address] Dec, [facility] [address] [id number] [address] [place] [address], [place] [address] Dec, [facility] [address] [id number] [address] [place] [address], [place] [address] Dec, [facility] [address] [id number] [address] [place] [address], [place] [address] Dec, [facility] [address] [id number] [facility] [place] [address] Dec, [facility] [address] [id number] [facility] [place] [address] Dec, [facility] [address] [id number] [facility] [place] [address] Oct, [facility] [address] [id number] [address] [place] [address], [place] [address] Oct, [facility] [address] [id number] [address] [place] [address], [place] [address] Sep, [facility] [address] [id number] [address] [place] [address], [place] [address] Sep, [facility] [address] [id number] [address] [place] [address], [place] [address] Sep, [facility] [address] [id number] [address] [place] [address], [place] [address] Sep, [facility] [address] [id number] [address] [place] [address], [place] [address] Sep, [facility] [address] [id number] [address] [place] [address], [place] [address] Sep, [facility] [address] [id number] [address] [place] [address], [place] [address] Sep, [facility] [address] [id number] [address] [place] [address], [place] [address] Sep, [facility] [address] [id number] [address] [place] [address], [place] [address] August, [facility] [address] [id number] [address] [place] [address], [place] [address] August, [facility] [address] [id number] [address] [place] [address], [place] [address] August, [facility] [address] [id number] [address] [place] [address], [place] [address] August, [facility] [address] [id number] [address] [place] [address], [place] [address] August, [facility] [address] [id number] [address] [place] [address], [place] [address] August, [facility] [address] [id number] [address] [place] [address], [place] [address] Jul, [facility] [address] [id number] [address] [place] [address], [place] [address] Jul, [facility] [address] [id number] [address] [place] [address], [place] [address] Jun, [facility] [address] [id number] [address] [place] [address], [place] [address] Jun, [facility] [address] [id number] [address] [place] [address], [place] [address] May, [facility] [address] [id number] [address] [place] [address], [place] [address] Apr, [facility] [address] [id number] [address] [place] [address], [place] [address] Apr, [facility] [address] [id number] [address] [place] [address], [place] [address] Apr, [facility] [address] [id number] [address] [place] [address], [place] [address] Apr, [facility] [address] [id number] [address] [place] [address], [place] [address] Apr, [facility] [address] [id number] [address] [place] [address], [place] [address] Apr, [facility] [address] [id number] [address] [place] [address], [place] [address] Mar, [facility] [address] [id number] [address] [place] [address], [place] [address] Mar, [facility] [address] [id number] [address] [place] [address], [place] [address] Mar, [facility] [address] [id number] [address] [place] [address], [place] [address] Mar, [facility] [address] [id number] [address] [place] [address], [place] [address] Mar, [facility] [address] [id number] [address] [place] [address], [place] [address] Mar, [facility] [address] [id number] [address] [place] [address], [place] [address] Mar, [facility] [address] [id number] [address] [place] [address], [place] [address] Mar, [facility] [address] [id number] [address] [place] [address], [place] [address] Mar, [facility] [address] [id number] [address] [place] [address], [place] [address] Mar, [facility] [address] [id number] [address] [place] [address], [place] [address] Mar, [facility] [address] [id number] [address] [place] [address], [place] [address] Mar, [facility] [address] [id number] [address] [place] [address], [place] [address] Nov, [facility] [address] [id number] [address] [place] [address], [place] [address] Nov, [facility] [address] [id number] [address] [place] [address], [place] [address] Sep, [facility] [address] [id number] [address] [place] [address], [place] [address] August, [facility] [address] [id number] [address] [place] [address], [place] [address] August, [facility] [address] [id number] [address] [place] [address], [place] [address] August, [facility] [address] [facility] [id number] [address] [place] [address] August, [facility] [address] [facility] [id number] [address] [place] [address] August, [facility] [address] [facility] [id number] [address] [place] [address] Jul, IMMUNIZATIONS No Known Immunizations SOCIAL HISTORY Never Assessed REASON FOR VISIT Contrave PLAN OF CARE VITAL SIGNS MEDICATIONS Medication Instructions Dosage Frequency Start Date End Date Duration S tatus Contrave 8-90 MG Orally in PM X 1 week, 1 tab bid X 1 week, 2 tabs in AM and 1 in PM X 1 week, 2 tabs bid final dose 1 tablet Active HydrOXYzine Pamoate 25 MG Orally every 8 hrs prn anxiety 1-2 cap portia as needed Sep, 30 day(s) Not-Taking GlyBURIDE 5 MG Orally Once a day 1 tablet with breakf ast or the first main meal of the day 24h 90 days Active Vyvanse 30 MG Orally Once a day 1 capsule in the morning 24h Apr, 28 days Active Chantix Starting Month Jesus 0.5 MG X 11 & 1 MG X 42 as dire cted May, Not-Taking Levothyroxine Sodium 75 MCG Orally Once a day 1 tablet 24h 90 days Active Lantus SoloStar 100 UNIT/ML Subcutaneous Once a day Inject 40 units 24h 04 Sep, 2017 90 days Active Actos 45 MG Orally Once a day 1 tablet 24h May, Not-Taking Vyvanse 30 MG Orally Once a day 1 capsule in the morning 24h 15 Feb, 2017 Not-Taking Tramadol HCl 50 MG Orally every 6 hrs 1 tablet as needed 6h Not-Taking MetFORMIN HCl ER 500 MG Orally 2 times a day 2 tablets 12h 90 days Active TRUEtest Test - In Vitro 3 times a day test blood sugar 8h 90 days Active UltiCare Micro Pen [place] 32G X 4 MM as directed for use with Lantus Pen injector 90 days Active Flonase 50 MCG/ACT Nasally 2 times a day 1 spray in each nostril 12 h Feb, Not-Taking Victoza 18 MG/3ML Subcutaneous Once a day inject 1.8 MG 24h 90 days Active Hydrocodone-Acetaminophen 10-325 MG Orally 4 times a day 1 tablet a s needed 6h Not-Taking Excedrin Migraine 250-250-65 MG Orally every 6 hrs 2 tablets as needed 6 h Active Depo-Provera 150 MG/ML 1 ml N ot-Taking Lipitor 40 MG Orally Once a day 1 tablet 24h 12 Sep, 2014 30 day(s) Not-Taking Diflucan 150 MG TAKE ONE TABLET BY MOUTH NOW AND REPEAT IN 4-5 DAYS NEEDED 4 Not-Taking Ondansetron 8 MG Orally every 4 hours as needed 1 tablet Not-Taking RESULTS No Results PROCEDURES No Known procedures INSTRUCTIONS MEDICATIONS ADMINISTERED No Known Medications MEDICAL (GENERAL) HISTORY Type Description Date Medical History type II diabetes Medical History obesity Medical History Hypothyroidism Medical History anxiety Medical History hyperlipidemia 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
--- OUTSIDE RECORDS SUMMARY | 2019-10-07 12:31 | XMS REPORT ---
Author Author Dano ROSEN Organization [facility] [place] Address [address] [place] [address] Care Team Providers Care Retail Sales Specialist Name Role Phone DAISY ROSEN Unavailable PROBLEMS Type Condition ICD9-CM Code VWX82-FR Code Onset Dates Condition S tatus SNOMED Code Problem Type 2 diabetes mellitus E11.9 Activ e 26129249 Problem Hypercholesteremia E78.0 Active 1 5435964 Problem Fibrocystic breast, right N60.11 Acti ve 41554112 Problem Hypertriglyceridemia E78.1 Active 387446226 Problem Binge eating disorder F50.81 Active 267926371 Problem Abdominal pain, left upper quadrant R10.12 Active 319312574 Problem Surveillance of contraceptive injection Z30.42 Active 863256193 Problem 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 Active 85953070 Problem Hypothyroid E03.9 Active 28840851 Problem Cannabis use disorder, mild, abuse F12.10 Active 61290015 Problem Anxiety disorder, unspecified F41.9 Active 888956177 Problem Anxiety F41.9 Active 88336841 Problem Tobacco use Z72.0 Active 92909932 0 Problem Ganglion of joint M67.40 Active 78 797304 Problem Chest pain, unspecified R07.9 Active 76467614 Problem BMI 45.0-49.9, adult Z68.42 Active 450384772 Problem Fibrocystic breast, left N60.12 Activ e [id number] ALLERGIES No Information ENCOUNTERS Encounter Location Date Diagnosis [facility] [place] [address] [facility] [id number] [address] [place] [phone] Dec, [facility] [place] [address] [facility] [id number] [address] [place] [id number] Oct, Hypertriglyceridemia E78.1 [facility] [place] [address] [facility] [id number] [address] [place] [id number] Oct, Type 2 diabetes mellitus E11 .9 ; Hypercholesteremia E78.0 and Hypothyroid E03.9 [facility] [place] [address] [place] [id number] [address] [place] [id number] Sep, BMI 45.0-49.9, adult Z68.42 [facility] [place] [address] [place] [id number] [address] [place] [id number] Sep, Type 2 diabetes mellitus E11 .9 [facility] [place] [address] [place] [id number] [address] [place] [id number] Sep, [facility] [place] [address] [place] [id number] [phone] Sep, Type 2 diabetes mellitus E11 .9 [facility] [place] [address] [place] [id number] [address] [place] [phone] Sep, Hypothyroid E03.9 ; Type 2 d iabetes mellitus E11.9 ; Toe pain, left M79.675 and BMI 45.0-49.9, adult Z68.42 [facility] [place] [address] [place] [id number] [address] [place] [id number] Jul, [facility] [address] [place] [id number] [address] [place] [phone] May, Influenza-like illness R69 a nd BMI 40.0-44.9, adult Z68.41 [facility] [place] [address] [place] [id number] [address] [place] [id number] May, Binge eating disorder F50.81 [facility] [place] [address] [facility] [id number] [address] [place] [id number] Apr, [place] [address] [place] [id number] [address] [place] [id number] Apr, Binge eating disorder F50.81 [facility] [place] [address] [place] [id number] [address] [place] [id number] Mar, Binge eating disorder F50.81 [place] [address] [place] [id number] [address] [place] [id number] Feb, [address] [phone] Feb, Diabetes E11.9 ; Binge eatin g disorder F50.81 and BMI 40.0-44.9, adult Z68.[address] [id number] Jan, Anxiety disorder, unspecifie d F41.9 and Anxiety F41.9 [place] [address] [place] [id number] [place] [phone] Jan, Anxiety disorder, unspecifie d F41.9 ; Cannabis use disorder, mild, abuse F12.10 and Adjustment disorder with mixed disturbance of em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 [phone] August, Hypothyroid E03.9 [place] [address] [address] August, Type 2 diabetes mellitus E11 .[address] [address] Jun, [place] [address] [phone] Jun, Diabetes E11.9 ; Dysuria R30 .0 and Urinary tract infection without hematuria, site unspecified N39.0 [place] [address] [place] [id number] [address] [place] [phone] Jun, [address] [id number] May, [place] [address] [place] [id number] [address] [place] [id number] Mar, [address] [phone] Mar, Pain of left leg M79.605 [facility] [place] [address] [facility] [id number] [address] [place] [phone] Feb, [facility] [place] [address] [facility] [id number] [address] [place] [id number] Feb, Type 2 diabetes mellitus E11 .9 [facility] [place] [address] [facility] [id number] [address] [place] [phone] Jan, [facility] [place] [address] [facility] [id number] [address] [place] [phone] Jan, [facility] [place] [address] [facility] [id number] [address] [place] [id number] Jan, Discharge of breast N64.52 [facility] [place] [address] [facility] [id number] [address] [place] [phone] 03 Jan, 2016 Menorrhagia N92.0 ; Encounte [...] breast, left N60.12 and Anxiety F41.9 [facility] [place] [address] [id number] [address] [place] [address] Dec, Diabetes E11.9 ; Right foot pain M79.671 ; Left upper quadrant pain R10.12 ; Pain in right leg M79.604 ; Pain of left leg M79.605 ; Other chest pain R07.89 ; Palpitations R00.2 ; Hypothyroid E03.9 ; Discharge of breast N64.52 and Hyperlipidemia, unspecified hyperlipidemia type E78.5 [facility] [place] [address] [id number] [address] [place] [phone] Dec, [facility] [place] [address] [id number] [address] [place] [id number] Oct, [facility] [place] [address] [facility] [id number] [address] [place] [phone] Oct, [facility] [place] [address] [id number] [address] [place] [id number] Sep, [facility] [place] [address] [facility] [id number] [address] [place] [phone] August, [facility] [place] [address] [id number] [address] [place] [phone] August, [facility] [place] [address] [facility] [id number] [address] [place] [phone] Jul, Hypothyroid E03.9 [facility] [place] [address] [id number] [address] [place] [phone] Jun, [facility] [place] [address] [facility] [id number] [address] [place] [id number] May, Menorrhagia N92.0 ; Diabetes E11.9 ; Hypothyroid E03.9 and Tobacco abuse Z72.0 [facility] [place] [address] [facility] [id number] [address] [place] [phone] May, [place] [address] [place] [id number] [address] [place] [id number] 09 May, 2015 Well woman exam Z01.419 ; BM I 45.0-49.9, adult Z68.42 ; Type 2 diabetes mellitus E11.9 ; Weight loss R63.4 ; Chest pain, unspecified R07.9 ; Hypercholesteremia E78.0 and Routine screening for STI (sexually transmitted infection) Z11.3 [place] [address] [id number] 05 May, 2015 [place] [address] [id number] 04 May, 2015 Well woman exam Z01.419 [...] Fibrocystic breast, left N60.12 and Anxiety F41.[address] [id number] 04 May, 2015 [place] [address] [id number] Mar, [place] [address] [address] Feb, [address] [address] Feb, Diabetes E11.9 ; Eustachian tube dysfunction, right H69.81 and Myalgia M79.[address] [id number] Feb, [place] [address] [id number] [address] [place] [id number] Nov, Mastodynia, female 611.71 [facility] [place] [address] [id number] [address] [place] [phone] Oct, Obesity 278.00 [facility] [place] [address] [facility] [id number] [address] [place] [id number] Oct, Diabetes mellitus without me ntion of complication, type II or unspecified type, not stated as uncontrolled 250.00 ; Anxiety 300.00 and Obesity 278.00 [facility] [place] [address] [id number] [address] [place] [id number] Sep, [facility] [place] [address] [facility] [id number] [address] [place] [id number] Sep, Diabetes mellitus without me ntion of complication, type II or unspecified type, not stated as uncontrolled 250.00 and Anxiety 300.00 [facility] [place] [address] [id number] [address] [place] [id number] Sep, [facility] [place] [address] [id number] [address] [place] [id number] Jul, [facility] [place] [address] [facility] [id number] [address] [place] [phone] Jul, [facility] [place] [address] [id number] [address] [place] [phone] Jun, [facility] [place] [address] [id number] [address] [place] [id number] Jun, [facility] [place] [address] [id number] [address] [place] [id number] May, [facility] [place] [address] [id number] [address] [place] [id number] May, [facility] [place] [address] [facility] [id number] [address] [place] [phone] Apr, [facility] [place] [address] [id number] [address] [place] [address], [place] [address] Apr, [facility] [address] [id number] [address] [place] [address], [place] [address] Apr, [facility] [address] [id number] [address] [place] [address], [place] [address] Apr, [facility] [address] [id number] [address] [place] [address], [place] [address] Apr, [facility] [address] [id number] [address] [place] [address], [place] [address] Apr, [facility] [address] [id number] [address] [place] [address], [place] [address] Apr, [facility] [address] [id number] [address] [place] [address], [place] [address] Apr, [facility] [address] [id number] [address] [place] [address], [place] [address] Apr, [facility] [address] [id number] [address] [place] [address], [place] [address] Apr, [facility] [address] [id number] [address] [place] [address], [place] [address] Apr, [facility] [address] [id number] [address] [place] [address], [place] [address] Feb, [facility] [address] [id number] [address] [place] [address], [place] [address] Feb, [facility] [address] [id number] [address] [place] [address], [place] [address] Dec, [facility] [address] [id number] [address] [place] [address], [place] [address] Dec, [facility] [address] [id number] [address] [place] [address], [place] [address] Dec, [facility] [address] [id number] [address] [place] [address], [place] [address] Dec, [facility] [address] [id number] [facility] [address] Dec, [facility] [address] [id number] [facility] [address] Dec, [facility] [address] [id number] [facility] [address] Oct, [facility] [address] [id number] [address] [place] [address], [place] [address] Oct, [facility] [address] [id number] [address] [place] [address], [place] [address] Sep, [facility] [address] [id number] [address] [place] [address], [place] [address] Sep, [facility] [address] [id number] [address] [place] [address], [place] [address] Sep, [facility] [address] [id number] [address] [place] [address], [place] [address] Sep, [facility] [address] [id number] [address] [place] [address], [place] [address] Sep, [facility] [address] [id number] [address] [place] [address], [place] [address] Sep, [facility] [address] [id number] [address] [place] [address], [place] [address] Sep, [facility] [address] [id number] [address] [place] [address], [place] [address] Sep, [facility] [address] [id number] [address] [place] [address], [place] [address] August, [facility] [address] [id number] [address] [place] [address], [place] [address] August, [facility] [address] [id number] [address] [place] [address], [place] [address] August, [facility] [address] [id number] [address] [place] [address], [place] [address] August, [facility] [address] [id number] [address] [place] [address], [place] [address] August, [facility] [address] [id number] [address] [place] [address], [place] [address] August, [facility] [address] [id number] [address] [place] [address], [place] [address] Jul, [facility] [address] [id number] [address] [place] [address], [place] [address] Jul, [facility] [address] [id number] [address] [place] [address], [place] [address] Jun, [facility] [address] [id number] [address] [place] [address], [place] [address] Jun, [facility] [address] [id number] [address] [place] [address], [place] [address] May, [facility] [address] [id number] [address] [place] [address], [place] [address] Apr, [facility] [address] [id number] [address] [place] [address], [place] [address] Apr, [facility] [address] [id number] [address] [place] [address], [place] [address] Apr, [facility] [address] [id number] [address] [place] [address], [place] [address] Apr, [facility] [address] [id number] [address] [place] [address], [place] [address] Apr, [facility] [address] [id number] [address] [place] [address], [place] [address] Apr, [facility] [address] [id number] [address] [place] [address], [place] [address] Mar, [facility] [address] [id number] [address] [place] [address], [place] [address] Mar, [facility] [address] [id number] [address] [place] [address], [place] [address] Mar, [facility] [address] [id number] [address] [place] [address], [place] [address] Mar, [facility] [address] [id number] [address] [place] [address], [place] [address] Mar, [facility] [address] [id number] [address] [place] [address], [place] [address] Mar, [facility] [address] [id number] [address] [place] [address], [place] [address] Mar, [facility] [address] [id number] [address] [place] [address], [place] [address] Mar, [facility] [address] [id number] [address] [place] [address], [place] [address] Mar, [facility] [address] [id number] [address] [place] [address], [place] [address] Mar, [facility] [address] [id number] [address] [place] [address], [place] [address] Mar, [facility] [address] [id number] [address] [place] [address], [place] [address] Mar, [facility] [address] [id number] [address] [place] [address], [place] [address] Nov, [facility] [address] [id number] [address] [place] [address], [place] [address] Nov, [facility] [address] [id number] [address] [place] [address], [place] [address] Sep, [facility] [address] [id number] [address] [place] [address], [place] [address] August, [facility] [address] [id number] [address] [place] [address], [place] [address] August, [facility] [address] [id number] [address] [place] [address], [place] [address] August, [facility] [place] [address] [facility] [id number] [address] [place] [address] August, [facility] [place] [address] [facility] [id number] [address] [place] [address] August, [facility] [place] [address] [facility] [id number] [address] [place] [address] Jul, IMMUNIZATIONS No Known Immunizations SOCIAL HISTORY Never Assessed REASON FOR VISIT Medication Change PLAN OF CARE VITAL SIGNS MEDICATIONS Medication Instructions Dosage Frequency Start Date End Date Duration S tatus Bydureon 2 MG Subcutaneous once weekly Inject 2mg Sep, 28 days Active RESULTS No Results PROCEDURES [...]
--- OUTSIDE RECORDS SUMMARY | 2019-10-07 12:31 | XMS REPORT ---
Author Author Dano ROSEN Organization [facility] Address [address] [place] [address] Care Team Providers Care Caregiver Services Home Name Role Phone DAISY ROSEN Unavailable PROBLEMS Type Condition ICD9-CM Code [id number] Code Onset Dates Condition S tatus SNOMED Code Problem Type 2 diabetes mellitus E11.9 Activ e 20742953 Problem Hypercholesteremia E78.0 Active 1 8116451 Problem Fibrocystic breast, right N60.11 Acti ve 19997813 Problem Hypertriglyceridemia E78.1 Active 905718963 Problem Binge eating disorder F50.81 Active 453403129 Problem Abdominal pain, left upper quadrant R10.12 Active 830539570 Problem Surveillance of contraceptive injection Z30.42 Active 611281075 Problem 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 Active 57764135 Problem Hypothyroid E03.9 Active 66705836 Problem Cannabis use disorder, mild, abuse F12.10 Active 21853375 Problem Anxiety disorder, unspecified F41.9 Active 703685817 Problem Anxiety F41.9 Active 14033212 Problem Tobacco use Z72.0 Active 21653832 0 Problem Ganglion of joint M67.40 Active 78 010431 Problem Chest pain, unspecified R07.9 Active 66189864 Problem BMI 45.0-49.9, adult Z68.42 Active 109172157 Problem Fibrocystic breast, left N60.12 Activ e 50551844 ALLERGIES Substance Reaction Event Type Date Status Victoza Unknown Drug Allergy Sep, Active Levemir hives Drug Allergy Sep, Active ENCOUNTERS Encounter Location Date Diagnosis [facility] [address] [facility] [id number] [address] [place] [address] Dec, [facility] [address] [facility] [id number] [address] [place] [address] 18 Baudilio, [address] [facility] [address] [place] [id number] [address] [place] [address] Oct, Type 2 diabetes mellitus E11 .9 ; Hypercholesteremia E78.[address] [facility] [address] [address] Sep, BMI 45.0-49.9, adult Z68.42 [facility] [address] [address] Sep, Type 2 diabetes mellitus E11 .9 [facility] [address] [address] Sep, [facility] [address] [address] Sep, Type 2 diabetes mellitus E11 .9 [facility] [address] [address] Sep, Hypothyroid E03.9 ; Type 2 d iabetes mellitus E11.9 ; Toe pain, left M79.675 and BMI 45.0-49.9, adult Z68.42 [facility] [address] [place] [id number] [address] [place] [address] 05 Jul, 2017 [facility] [address] [place] [id number] [address] [place] [address] May, Influenza-like illness R69 a nd BMI 40.0-44.9, adult Z68.41 [facility] [address] [place] [id number] [address] [place] [address] May, Binge eating disorder F50.81 [facility] [address] [address] Apr, [facility] [address] [place] [id number] [address] [place] [address] Apr, Binge eating disorder F50.81 [facility] [address] [address] Mar, Binge eating disorder F50.81 [place] [address] [address] Feb, [place] [address] [address] Feb, Diabetes E11.9 ; Binge eatin g disorder F50.81 and BMI 40.0-44.9, adult Z68.41 [place] [address] [address] Jan, Anxiety disorder, unspecifie d F41.9 and Anxiety F41.9 [place] [address] [address] Jan, Anxiety disorder, unspecifie d F41.9 ; Cannabis use disorder, mild, abuse F12.10 and Adjustment disorder with mixed disturbance of em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 [place] [address] [address] August, Hypothyroid E03.9 [place] [address] [address] August, Type 2 diabetes mellitus E11 .9 [place] [address] [address] Jun, [place] [address] [address] Jun, Diabetes E11.9 ; Dysuria R30 .0 and Urinary tract infection without hematuria, site unspecified N39.0 [place] [address] [address] Jun, [place] [address] [address] May, [place] [address] [address] Mar, [facility] [address] [facility] [id number] [address] [place] [address] 05 Mar, 2016 Pain of left leg M79.605 [place] [address] [facility] [id number] [address] [place] [address] Feb, [place] [address] [place] [id number] [address] [place] [address] Feb, Type 2 diabetes mellitus E11 .9 [facility] [address] [facility] [id number] [address] [place] [address] Jan, [place] [address] [place] [id number] [address] [place] [address] Jan, [place] [address] [place] [id number] [address] [place] [address] 07 Jan, 2016 Discharge of breast N64.52 [place] [address] [place] [id number] [address] [place] [address] 03 Jan, 2016 Menorrhagia N92.0 ; Encounte [...] breast, left N60.[address] [facility] [address] [facility] [id number] [address] [place] [address] Dec, Diabetes E11.9 ; Right foot pain M79.671 ; Left upper quadrant pain R10.12 ; Pain in right leg M79.604 ; Pain of left leg M79.605 ; Other chest pain R07.89 ; Palpitations R00.2 ; Hypothyroid E03.9 ; Discharge of breast N64.52 and Hyperlipidemia, unspecified hyperlipidemia type E78.5 [facility] [address] [facility] [id number] [address] [place] [address] Dec, [place] [address] [facility] [id number] [address] [place] [address] Oct, [facility] [address] [facility] [id number] [address] [place] [address] Oct, [facility] [address] [facility] [id number] [address] [place] [address] Sep, [facility] [address] [facility] [id number] [address] [place] [address] August, [place] [address] [facility] [id number] [address] [place] [address] August, [facility] [address] [facility] [id number] [address] [place] [address] Jul, Hypothyroid E03.9 [facility] [address] [facility] [id number] [address] [place] [address] Jun, [place] [address] [facility] [id number] [address] [place] [address] May, Menorrhagia N92.0 ; Diabetes E11.9 ; Hypothyroid E03.9 and Tobacco abuse Z72.0 [place] [address] [place] [id number] [address] [place] [address] 15 May, 2015 [place] [address] [address] 09 May, 2015 Well woman exam Z01.419 ; BM I 45.0-49.9, adult Z68.42 ; Type 2 diabetes mellitus E11.9 ; Weight loss R63.4 ; Chest pain, unspecified R07.9 ; Hypercholesteremia E78.0 and Routine screening for STI (sexually transmitted infection) Z11.3 [place] [address] [address] 05 May, [address] [address] 04 May, 2015 Well woman exam Z01.419 [...] Fibrocystic breast, left N60.12 and Anxiety F41.9 [place] [id number] [address] [place] [address] May, [place] [address] [place] [id number] [address] [place] [address] Mar, [address] [address] Feb, [address] [address] Feb, Diabetes E11.9 ; Eustachian tube dysfunction, right H69.81 and Myalgia M79.1 [place] [id number] [address] [place] [address] Feb, [facility] [address] [id number] [address] [place] [address] Nov, Mastodynia, female 611.71 [facility] [address] [facility] [id number] [address] [place] [address] Oct, Obesity 278.00 [facility] [address] [id number] [address] [place] [address] Oct, Diabetes mellitus without me ntion of complication, type II or unspecified type, not stated as uncontrolled 250.00 ; Anxiety 300.[address] [facility] [address] [id number] [address] [place] [address] Sep, [facility] [address] [facility] [id number] [address] [place] [address] Sep, Diabetes mellitus without me ntion of complication, type II or unspecified type, not stated as uncontrolled 250.[address] [facility] [address] [facility] [id number] [address] [place] [address] Sep, [facility] [address] [facility] [id number] [address] [place] [address] Jul, [facility] [address] [facility] [id number] [address] [place] [address] Jul, [facility] [address] [facility] [id number] [address] [place] [address] Jun, [facility] [address] [facility] [id number] [address] [place] [address] Jun, [facility] [address] [facility] [id number] [address] [place] [address] May, [facility] [address] [facility] [id number] [address] [place] [address] May, [facility] [address] [facility] [id number] [address] [place] [address] Apr, [facility] [address] [id number] [address] [place] [address], [place] [address] Apr, [facility] [address] [id number] [address] [place] [address], [place] [address] Apr, [facility] [address] [id number] [address] [place] [address], [place] [address] Apr, [facility] [address] [id number] [address] [place] [address], [place] [address] Apr, [facility] [address] [id number] [address] [place] [address], [place] [address] Apr, [facility] [address] [id number] [address] [place] [address], [place] [address] Apr, [facility] [address] [id number] [address] [place] [address], [place] [address] Apr, [facility] [address] [id number] [address] [place] [address], [place] [address] Apr, [facility] [address] [id number] [address] [place] [address], [place] [address] Apr, [facility] [address] [id number] [address] [place] [address], [place] [address] Apr, [facility] [address] [id number] [address] [place] [address], [place] [address] Feb, [facility] [address] [id number] [address] [place] [address], [place] [address] Feb, [facility] [address] [id number] [address] [place] [address], [place] [address] Dec, [facility] [address] [id number] [address] [place] [address], [place] [address] Dec, [facility] [address] [id number] [address] [place] [address], [place] [address] Dec, [facility] [address] [id number] [facility] [place] [address] 04 Dec, 2013 [facility] [address] [id number] [facility] [place] [address] Dec, [facility] [address] [id number] [facility] [place] [address] Dec, [facility] [address] [id number] [address] [place] [address], [place] [address] Oct, [facility] [address] [id number] [address] [place] [address], [place] [address] Oct, [facility] [address] [id number] [address] [place] [address], [place] [address] Sep, [facility] [address] [id number] [address] [place] [address], [place] [address] Sep, [facility] [address] [id number] [address] [place] [address], [place] [address] Sep, [facility] [address] [id number] [address] [place] [address], [place] [address] Sep, [facility] [address] [id number] [address] [place] [address], [place] [address] Sep, [facility] [address] [id number] [address] [place] [address], [place] [address] Sep, [facility] [address] [id number] [address] [place] [address], [place] [address] Sep, [facility] [address] [id number] [address] [place] [address], [place] [address] Sep, [facility] [address] [id number] [address] [place] [address], [place] [address] August, [facility] [address] [id number] [address] [place] [address], [place] [address] August, [facility] [address] [id number] [address] [place] [address], [place] [address] August, [facility] [address] [id number] [address] [place] [address], [place] [address] August, [facility] [address] [id number] [address] [place] [address], [place] [address] August, [facility] [address] [id number] [address] [place] [address], [place] [address] August, [facility] [address] [id number] [address] [place] [address], [place] [address] Jul, [facility] [address] [id number] [address] [place] [address], [place] [address] Jul, [facility] [address] [id number] [address] [place] [address], [place] [address] Jun, [facility] [address] [id number] [address] [place] [address], [place] [address] Jun, [facility] [address] [id number] [address] [place] [address], [place] [address] May, [facility] [address] [id number] [address] [place] [address], [place] [address] Apr, [facility] [address] [id number] [address] [place] [address], [place] [address] Apr, [facility] [address] [id number] [address] [place] [address], [place] [address] Apr, [facility] [address] [id number] [address] [place] [address], [place] [address] Apr, [facility] [address] [id number] [address] [place] [address], [place] [address] Apr, [facility] [address] [id number] [address] [place] [address], [place] [address] Apr, [facility] [address] [id number] [address] [place] [address], [place] [address] Mar, [facility] [address] [id number] [address] [place] [address], [place] [address] Mar, [facility] [address] [id number] [address] [place] [address], [place] [address] Mar, [facility] [address] [id number] [address] [place] [address], [place] [address] Mar, [facility] [address] [id number] [address] [place] [address], [place] [address] Mar, [facility] [address] [id number] [address] [place] [address], [place] [address] Mar, [facility] [address] [id number] [address] [place] [address], [place] [address] Mar, [facility] [address] [id number] [address] [place] [address], [place] [address] Mar, [facility] [address] [id number] [address] [place] [address], [place] [address] Mar, [facility] [address] [id number] [address] [place] [address], [place] [address] Mar, [facility] [address] [id number] [address] [place] [address], [place] [address] Mar, [facility] [address] [id number] [address] [place] [address], [place] [address] Mar, [facility] [address] [id number] [address] [place] [address], [place] [address] Nov, [facility] [address] [id number] [address] [place] [address], [place] [address] Nov, [facility] [address] [id number] [address] [place] [address], [place] [address] Sep, [facility] [address] [id number] [address] [place] [address], [place] [address] August, [facility] [address] [id number] [address] [place] [address], [place] [address] August, [facility] [address] [facility] [id number] [address] [place] [address] August, [facility] [address] [facility] [id number] [address] [place] [address] August, [facility] [address] [facility] [id number] [address] [place] [address] August, [facility] [address] [facility] [id number] [address] [place] [address] Jul, IMMUNIZATIONS No Known Immunizations SOCIAL HISTORY Never Assessed REASON FOR VISIT Restart Victoza PLAN OF CARE VITAL SIGNS MEDICATIONS Unknown [...]
--- OUTSIDE RECORDS SUMMARY | 2019-10-07 12:32 | XMS REPORT ---
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 Active 20885247 Problem Surveillance of contraceptive injection Z30.42 Active 053310284 Problem Hypercholesteremia E78.0 Active 1 8493696 Problem Hypothyroid E03.9 Active 90785086 Problem Abdominal pain, left upper quadrant R10.12 Active 181785928 Problem Cannabis use disorder, mild, abuse F12.10 Active 79765767 Problem Anxiety disorder, unspecified F41.9 Active 723631307 Problem BMI 45.0-49.9, adult Z68.42 Active 569431256 Problem Anxiety F41.9 Active 06280492 Problem Ganglion of joint M67.40 Active 78 364462 Problem Tobacco use Z72.0 Active 46523574 0 Problem Diabetes E11.9 Active 46634957 Problem Chest pain, unspecified R07.9 Active 69069920 ALLERGIES No Known Allergies ENCOUNTERS Encounter Location Date Diagnosis [facility] [address] [facility] [id number] [place] [address] Sep, [facility] [address] [facility] [id number] [place] [address] Jul, [facility] [address] [facility] [id number] [place] [address] May, Influenza-like illness R69 a nd BMI 40.0-44.9, adult Z68.41 [place] [address] [address] May, Binge eating disorder F50.81 [place] [address] [address] Apr, [place] [address] [address] Apr, Binge eating disorder F50.81 [place] [address] [address] Mar, Binge eating disorder F50.81 [place] [address] [address] Feb, [place] [address] [address] Feb, Diabetes E11.9 ; Binge eatin g disorder F50.81 and BMI 40.0-44.9, adult Z68.41 [place] [address] [address] Jan, Anxiety disorder, unspecifie d F41.9 and Anxiety F41.9 [place] [address] [address] Jan, Anxiety disorder, unspecifie d F41.9 ; Cannabis use disorder, mild, abuse F12.10 and Adjustment disorder with mixed disturbance of em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 [place] [address] [address] [place] [id number] [address] [place] [address] August, Hypothyroid E03.9 [place] [address] [address] August, Type 2 diabetes mellitus E11 .9 [place] [address] [address] Jun, [place] [address] [facility] [id number] [place] [address] Jun, Diabetes E11.9 ; Dysuria R30 .0 and Urinary tract infection without hematuria, site unspecified N39.0 [facility] [address] [id number] [address] [place] [address] Jun, [facility] [address] [id number] [address] [place] [address] May, [facility] [address] [facility] [id number] [place] [address] Mar, [place] [address] [facility] [id number] [place] [address] Mar, Pain of left leg M79.605 [place] [address] [facility] [id number] [place] [address] Feb, [place] [address] [facility] [id number] [place] [address] Feb, Type 2 diabetes mellitus E11 .9 [facility] [address] [id number] [address] [place] [address] Jan, [place] [address] [facility] [id number] [place] [address] Jan, [facility] [address] [facility] [id number] [place] [address] Jan, Discharge of breast N64.52 [place] [address] [facility] [id number] [place] [address] Jan, Menorrhagia N92.0 ; Encounte r for [...] Fibrocystic breast, left N60.12 and Anxiety F41.9 [place] [address] [facility] [id number] [place] [address] Dec, Diabetes E11.9 ; Right foot pain M79.671 ; Left upper quadrant pain R10.12 ; Pain in right leg M79.604 ; Pain of left leg M79.605 ; Other chest pain R07.89 ; Palpitations R00.2 ; Hypothyroid E03.9 ; Discharge of breast N64.52 and Hyperlipidemia, unspecified hyperlipidemia type E78.5 [place] [address] [facility] [id number] [place] [address] Dec, [facility] [address] [facility] [id number] [place] [address] Oct, [facility] [address] [facility] [id number] [place] [address] Oct, [facility] [address] [facility] [id number] [place] [address] Sep, [facility] [address] [facility] [id number] [place] [address] August, [facility] [address] [facility] [id number] [place] [address] August, [place] [address] [address] [place] [id number] [address] [place] [address] Jul, Hypothyroid E03.9 [place] [address] [place] [id number] [address] [place] [address] Jun, [place] [address] [place] [id number] [address] [place] [address] May, Menorrhagia N92.0 ; Diabetes E11.9 ; Hypothyroid E03.9 and Tobacco abuse Z72.0 [place] [address] [address] [place] [id number] [address] [place] [address] May, [place] [address] [address] May, Well woman exam Z01.419 ; BM I 45.0-49.9, adult Z68.42 ; Type 2 diabetes mellitus E11.9 ; Weight loss R63.4 ; Chest pain, unspecified R07.9 ; Hypercholesteremia E78.0 and Routine screening for STI (sexually transmitted infection) Z11.3 [place] [address] [place] [id number] [address] [place] [address] 05 May, 2015 [place] [address] [address] [place] [id number] [address] [place] [address] 04 May, 2015 Well woman exam Z01.419 [...] Fibrocystic breast, left N60.12 and Anxiety F41.9 [place] [id number] [address] [place] [address], [place] [address] 04 May, 2015 [facility] [address] [address] Mar, [facility] [address] [address] Feb, [facility] [address] [address] Feb, Diabetes E11.9 ; Eustachian tube dysfunction, right H69.81 and Myalgia M79.1 [facility] [address] [address] Feb, [facility] [address] [address] Nov, Mastodynia, female 611.71 [place] [address] [address] Oct, Obesity 278.00 [facility] [address] [address] Oct, Diabetes mellitus without me ntion of complication, type II or unspecified type, not stated as uncontrolled 250.00 ; Anxiety 300.00 and Obesity 278.00 [facility] [address] [address] Sep, [facility] [address] [address] Sep, Diabetes mellitus without me ntion of complication, type II or unspecified type, not stated as uncontrolled 250.00 and Anxiety 300.00 [facility] [address] [address] Sep, [facility] [address] [address] Jul, [facility] [address] [address] Jul, [facility] [address] [id number] [address] [place] [address], [place] [address] Jun, [facility] [address] [id number] [address] [place] [address], [place] [address] Jun, [facility] [address] [id number] [address] [place] [address], [place] [address] May, [facility] [address] [id number] [address] [place] [address], [place] [address] May, [facility] [address] [id number] [address] [place] [address], [place] [address] Apr, [facility] [address] [id number] [address] [place] [address], [place] [address] Apr, [facility] [address] [id number] [address] [place] [address], [place] [address] Apr, [facility] [address] [id number] [address] [place] [address], [place] [address] Apr, [facility] [address] [id number] [address] [place] [address], [place] [address] Apr, [facility] [address] [id number] [address] [place] [address], [place] [address] Apr, [facility] [address] [id number] [address] [place] [address], [place] [address] Apr, [facility] [address] [id number] [address] [place] [address] Apr, [facility] [address] [id number] [address] [place] [address], [place] [address] Apr, [facility] [address] [id number] [address] [place] [address], [place] [address] Apr, [facility] [address] [id number] [address] [place] [address] Apr, [facility] [address] [id number] [address] [place] [address], [place] [address] Feb, [facility] [address] [id number] [address] [place] [address], [place] [address] Feb, [facility] [address] [id number] [address] [place] [address], [place] [address] Dec, [facility] [address] [id number] [address] [place] [address], [place] [address] Dec, [facility] [address] [id number] [address] [place] [address], [place] [address] Dec, [facility] [address] [id number] [address] [place] [address], [place] [address] Dec, [facility] [address] [id number] [address] [place] [address], [place] [address] Dec, [facility] [address] [id number] [address] [place] [address], [place] [address] Dec, [facility] [address] [id number] [address] [place] [address], [place] [address] Oct, [facility] [address] [id number] [address] [place] [address], [place] [address] Oct, [facility] [address] [id number] [address] [place] [address], [place] [address] Sep, [facility] [address] [id number] [address] [place] [address], [place] [address] Sep, [facility] [address] [id number] [address] [place] [address], [place] [address] Sep, [facility] [address] [id number] [address] [place] [address], [place] [address] Sep, [facility] [address] [id number] [address] [place] [address], [place] [address] Sep, [facility] [address] [id number] [address] [place] [address], [place] [address] Sep, [facility] [address] [id number] [address] [place] [address], [place] [address] Sep, [facility] [address] [id number] [address] [place] [address], [place] [address] Sep, [facility] [address] [id number] [address] [place] [address], [place] [address] August, [facility] [address] [id number] [address] [place] [address], [place] [address] August, [facility] [address] [id number] [address] [place] [address], [place] [address] August, [facility] [address] [id number] [address] [place] [address], [place] [address] August, [facility] [address] [id number] [address] [place] [address], [place] [address] August, [facility] [address] [id number] [address] [place] [address], [place] [address] August, [facility] [address] [id number] [address] [place] [address], [place] [address] Jul, [facility] [address] [id number] [address] [place] [address], [place] [address] Jul, [facility] [address] [id number] [address] [place] [address], [place] [address] Jun, [facility] [address] [id number] [address] [place] [address], [place] [address] Jun, [facility] [address] [id number] [address] [place] [address], [place] [address] May, [facility] [address] [id number] [address] [place] [address], [place] [address] Apr, [facility] [address] [id number] [address] [place] [address], [place] [address] 16 Apr, 2012 [facility] [address] [id number] [address] [place] [address] [address] Apr, [facility] [address] [id number] [address] [place] [address], [place] [address] Apr, [facility] [address] [id number] [address] [place] [address], [place] [address] Apr, [facility] [address] [id number] [address] [place] [address], [place] [address] Apr, [facility] [address] [id number] [address] [place] [address], [place] [address] Mar, [facility] [address] [id number] [address] [place] [address], [place] [address] Mar, [facility] [address] [id number] [address] [place] [address], [place] [address] Mar, [facility] [address] [id number] [address] [place] [address], [place] [address] Mar, [facility] [address] [id number] [address] [place] [address], [place] [address] Mar, [facility] [place] [address] [id number] [address] [place] [address], [place] [address] Mar, [facility] [address] [id number] [address] [place] [address], [place] [address] Mar, [facility] [place] [address] [id number] [address] [place] [address], [place] [address] Mar, [facility] [address] [id number] [address] [place] [address], [place] [address] Mar, [facility] [address] [id number] [address] [place] [address], [place] [address] Mar, [facility] [address] [id number] [address] [place] [address], [place] [address] Mar, [facility] [address] [id number] [address] [place] [address], [place] [address] Mar, [facility] [address] [id number] [address] [place] [address] Nov, [facility] [address] [id number] [address] [place] [address] Nov, [facility] [address] [id number] [address] [place] [address] Sep, [facility] [address] [id number] [address] [place] [address] August, [facility] [address] [id number] [address] [place] [address] August, [facility] [address] [id number] [address] [place] [address] August, [facility] [address] [id number] [address] [place] [address] August, [facility] [address] [id number] [address] [place] [address] August, [facility] [address] [id number] [address] [place] [address] Jul, IMMUNIZATIONS No Known Immunizations SOCIAL HISTORY Never Assessed REASON FOR VISIT Diabetes--Evon Rowe MA PLAN OF CARE Activity Details Follow Up 2 Months Reason:wt mgmt VITAL SIGNS Height 64 in 2017-03-11 Weight 259.1 lbs 2017-03-11 Temperature 98.5 degrees Fahrenheit 2017-03-11 Heart Rate 88 bpm 2017-03-11 Respiratory Rate 20 2017-03-11 BMI 44.47 kg/m2 2017-03-11 Blood pressure systolic 130 mmHg 2017-03-11 Blood pressure diastolic 90 mmHg 2017-03-11 MEDICATIONS Medication Instructions Dosage Frequency Start Date End Date Duration S tatus Excedrin Migraine 250-250-65 MG Orally every 6 hrs 2 tablets as needed 6 h Active HydrOXYzine Pamoate 25 MG Orally every 8 hrs prn anxiety 1-2 cap portia as needed Sep, 30 day(s) Not-Taking UltiCare Micro Pen [place] 32G X 4 MM TWICE DAILY DIRECTED 30 Active Hydrocodone-Acetaminophen 10-325 MG Orally 4 times a day 1 tablet a s needed 6h Not-Taking Vyvanse 30 MG Orally Once a day 1 capsule in the morning 24h 15 Feb, 2017 Active Tramadol HCl 50 MG Orally every 6 hrs 1 tablet as needed 6h Active Lipitor 40 MG Orally Once a day 1 tablet 24h Sep, 30 day(s) Not-Taking Chantix Starting Month Jesus 0.5 MG X 11 & 1 MG X 42 as dire cted May, Not-Taking Levemir FlexTouch 100 UNIT/ML Subcutaneous Once a day INJECT 30 units 24h 30 Active Levothyroxine Sodium 75 MCG Orally Once a day 1 tablet 24h 30 days Active MetFORMIN HCl ER 500 MG Orally 2 times a day 2 tablets 12h 07 days Active Ondansetron 8 MG Orally every 4 hours as needed 1 tablet Active Actos 45 MG Orally Once a day 1 tablet 24h May, Not-Taking Glimepiride 2 MG Orally Once a day 1 tablet with first meal of day 24h 90 days Not-Taking TRUEtest Test TEST THREE TIMES DAILY 32 Active Vyvanse 30 MG Orally Once a day 1 capsule in the morning 24h Feb, 30 days Active Depo-Provera 150 MG/ML 1 ml N ot-Taking Flonase 50 MCG/ACT Nasally 2 times a day 1 spray in each nostril 12 h Feb, Not-Taking Diflucan 150 MG TAKE ONE TABLET BY MOUTH NOW AND REPEAT IN 4-5 DAYS NEEDED 4 Not-Taking GlyBURIDE 5 MG Orally Once a day 1 tablet with breakf ast or the first main meal of the day 24h Active RESULTS Name Result Date Reference Range A1C (IN HOUSE) A1C IN HOUSE 8.8 4.3 - 5.6 % Previous A1c 8.9 Lot [id number] Exp date 11/12 PROCEDURES Procedure Date Ordered Result Body Site GLYCATED HEMOGLOBIN TEST Mar 11, 2017 INSTRUCTIONS MEDICATIONS ADMINISTERED No Known Medications MEDICAL (GENERAL) HISTORY Type Description Date Medical History type II diabetes Medical History obesity Medical History Hypothyroidism Medical History anxiety Medical History hyperlipidemia Surgical History section x 4 Surgical History tonsillectomy Surgical History cholecystectomy Surgical History adenoidectomy Surgical History Abses from the [facility] May 2016 Hospitalization History surgeries Hospitalization History Abses removed from [facility] May Hospitalization History miscarriage--over night stay 02/2017
--- OUTSIDE RECORDS SUMMARY | 2019-10-07 12:32 | XMS REPORT ---
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 Name Role Phone DAISY ROSEN Unavailable PROBLEMS Type Condition ICD9-CM Code BCT99-UW Code Onset Dates Condition S tatus SNOMED Code Problem Type 2 diabetes mellitus E11.9 Activ e 46936362 Problem Hypercholesteremia E78.0 Active 1 1977139 Problem Fibrocystic breast, right N60.11 Acti ve 08687644 Problem Hypertriglyceridemia E78.1 Active 401535978 Problem Binge eating disorder F50.81 Active 769066720 Problem Abdominal pain, left upper quadrant R10.12 Active 519660844 Problem Surveillance of contraceptive injection Z30.42 Active 384770150 Problem 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 Active 71355762 Problem Hypothyroid E03.9 Active 37321386 Problem Cannabis use disorder, mild, abuse F12.10 Active 42171802 Problem Anxiety disorder, unspecified F41.9 Active 107189442 Problem Anxiety F41.9 Active 57243028 Problem Tobacco use Z72.0 Active 74331818 0 Problem Ganglion of joint M67.40 Active 78 586257 Problem Chest pain, unspecified R07.9 Active 21602442 Problem BMI 45.0-49.9, adult Z68.42 Active 378474294 Problem Fibrocystic breast, left N60.12 Activ e [id number] ALLERGIES No Information ENCOUNTERS Encounter Location Date Diagnosis [facility] [address] [facility] [id number] [address] [place] [address] Dec, [facility] [address] [facility] [id number] [address] [place] [address] Oct, Hypertriglyceridemia E78.1 [facility] [address] [facility] [id number] [address] [place] [address] Oct, Type 2 diabetes mellitus E11 .9 ; Hypercholesteremia E78.0 and Hypothyroid E03.9 [facility] [address] [place] [id number] [address] [place] [address] Sep, BMI 45.0-49.9, adult Z68.42 [facility] [address] [place] [id number] [address] [place] [address] Sep, Type 2 diabetes mellitus E11 .9 [facility] [address] [place] [id number] [address] [place] [address] Sep, [facility] [address] [place] [id number] [place] [address] Sep, Type 2 diabetes mellitus E11 .9 [facility] [address] [place] [id number] [address] [place] [address] Sep, Hypothyroid E03.9 ; Type 2 d iabetes mellitus E11.9 ; Toe pain, left M79.675 and BMI 45.0-49.9, adult Z68.42 [facility] [address] [place] [id number] [address] [place] [address] Jul, [facility] [address] [place] [id number] [address] [place] [address] May, Influenza-like illness R69 a nd BMI 40.0-44.9, adult Z68.41 [facility] [address] [place] [id number] [address] [place] [address] May, Binge eating disorder F50.81 [facility] [address] [facility] [id number] [address] [place] [address] Apr, [place] [address] [place] [id number] [address] [place] [address] Apr, Binge eating disorder F50.81 [facility] [address] [place] [id number] [address] [place] [address] Mar, Binge eating disorder F50.81 [place] [address] [place] [id number] [address] [place] [address] Feb, [address] [address] Feb, Diabetes E11.9 ; Binge eatin g disorder F50.81 and BMI 40.0-44.9, adult Z68.[address] [address] Jan, Anxiety disorder, unspecifie d F41.9 and Anxiety F41.9 [place] [address] [place] [id number] [place] [address] Jan, Anxiety disorder, unspecifie d F41.9 ; Cannabis use disorder, mild, abuse F12.10 and Adjustment disorder with mixed disturbance of em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 [address] August, Hypothyroid E03.9 [place] [address] [address] August, Type 2 diabetes mellitus E11 .[address] [address] Jun, [place] [address] [address] Jun, Diabetes E11.9 ; Dysuria R30 .0 and Urinary tract infection without hematuria, site unspecified N39.0 [place] [address] [place] [id number] [address] [place] [address] Jun, [address] [address] May, [place] [address] [place] [id number] [address] [place] [address] Mar, [address] [address] Mar, Pain of left leg M79.605 [facility] [address] [facility] [id number] [address] [place] [address] Feb, [facility] [address] [facility] [id number] [address] [place] [address] Feb, Type 2 diabetes mellitus E11 .9 [facility] [address] [facility] [id number] [address] [place] [address] Jan, [facility] [address] [facility] [id number] [address] [place] [address] Jan, [facility] [address] [facility] [id number] [address] [place] [address] Jan, Discharge of breast N64.52 [facility] [address] [facility] [id number] [address] [place] [address] 03 Jan, 2016 Menorrhagia N92.0 ; Encounte [...] Fibrocystic breast, left N60.12 and Anxiety F41.9 [facility] [address] [id number] [address] [place] [address] Dec, Diabetes E11.9 ; Right foot pain M79.671 ; Left upper quadrant pain R10.12 ; Pain in right leg M79.604 ; Pain of left leg M79.605 ; Other chest pain R07.89 ; Palpitations R00.2 ; Hypothyroid E03.9 ; Discharge of breast N64.52 and Hyperlipidemia, unspecified hyperlipidemia type E78.5 [facility] [address] [id number] [address] [place] [address] Dec, [facility] [address] [id number] [address] [place] [address] Oct, [facility] [address] [facility] [id number] [address] [place] [address] Oct, [facility] [address] [id number] [address] [place] [address] Sep, [facility] [address] [facility] [id number] [address] [place] [address] August, [facility] [address] [id number] [address] [place] [address] August, [facility] [address] [facility] [id number] [address] [place] [address] Jul, Hypothyroid E03.9 [facility] [address] [id number] [address] [place] [address] Jun, [facility] [address] [facility] [id number] [address] [place] [address] May, Menorrhagia N92.0 ; Diabetes E11.9 ; Hypothyroid E03.9 and Tobacco abuse Z72.0 [facility] [address] [facility] [id number] [address] [place] [address] May, [place] [address] [place] [id number] [address] [place] [address] 09 May, 2015 Well woman exam Z01.419 ; BM I 45.0-49.9, adult Z68.42 ; Type 2 diabetes mellitus E11.9 ; Weight loss R63.4 ; Chest pain, unspecified R07.9 ; Hypercholesteremia E78.0 and Routine screening for STI (sexually transmitted infection) Z11.3 [place] [address] [address] 05 May, 2015 [place] [address] [address] 04 May, 2015 Well woman exam Z01.419 [...] breast, left N60.12 and Anxiety F41.[address] [address] 04 May, 2015 [place] [address] [address] Mar, [place] [address] [address] Feb, [address] [address] Feb, Diabetes E11.9 ; Eustachian tube dysfunction, right H69.81 and Myalgia M79.[address] [address] Feb, [place] [address] [id number] [address] [place] [address] Nov, Mastodynia, female 611.71 [facility] [address] [id number] [address] [place] [address] Oct, Obesity 278.00 [facility] [address] [facility] [id number] [address] [place] [address] Oct, Diabetes mellitus without me ntion of complication, type II or unspecified type, not stated as uncontrolled 250.00 ; Anxiety 300.00 and Obesity 278.00 [facility] [address] [id number] [address] [place] [address] Sep, [facility] [address] [facility] [id number] [address] [place] [address] Sep, Diabetes mellitus without me ntion of complication, type II or unspecified type, not stated as uncontrolled 250.00 and Anxiety 300.00 [facility] [address] [id number] [address] [place] [phone] Sep, [facility] [address] [id number] [address] [place] [address] Jul, [facility] [address] [facility] [id number] [address] [place] [address] Jul, [facility] [address] [id number] [address] [place] [address] Jun, [facility] [address] [id number] [address] [place] [phone] Jun, [facility] [address] [id number] [address] [place] [address] May, [facility] [address] [id number] [address] [place] [address] May, [facility] [address] [facility] [id number] [address] [place] [address] Apr, [facility] [address] [id number] [address] [place] [address], [place] [address] Apr, [facility] [address] [id number] [address] [place] [address], [place] [address] Apr, [facility] [address] [id number] [address] [place] [address], [place] [address] Apr, [facility] [address] [id number] [address] [place] [address], [place] [address] Apr, [facility] [address] [id number] [address] [place] [address], [place] [address] Apr, [facility] [address] [id number] [address] [place] [address], [place] [address] Apr, [facility] [address] [id number] [address] [place] [address], [place] [address] Apr, [facility] [address] [id number] [address] [place] [address], [place] [address] Apr, [facility] [address] [id number] [address] [place] [address], [place] [address] Apr, [facility] [address] [id number] [address] [place] [address], [place] [address] Apr, [facility] [address] [id number] [address] [place] [address], [place] [address] Feb, [facility] [address] [id number] [address] [place] [address], [place] [address] Feb, [facility] [address] [id number] [address] [place] [address], [place] [address] Dec, [facility] [address] [id number] [address] [place] [address], [place] [address] Dec, [facility] [address] [id number] [address] [place] [address], [place] [address] Dec, [facility] [address] [id number] [address] [place] [address], [place] [address] Dec, [facility] [address] [id number] [facility] [place] [address] Dec, [facility] [address] [id number] [facility] [place] [address] Dec, [facility] [address] [id number] [facility] [place] [address] Oct, [facility] [address] [id number] [address] [place] [address], [place] [address] Oct, [facility] [address] [id number] [address] [place] [address], [place] [address] Sep, [facility] [address] [id number] [address] [place] [address], [place] [address] Sep, [facility] [address] [id number] [address] [place] [address], [place] [address] Sep, [facility] [address] [id number] [address] [place] [address], [place] [address] Sep, [facility] [address] [id number] [address] [place] [address], [place] [address] Sep, [facility] [address] [id number] [address] [place] [address], [place] [address] Sep, [facility] [address] [id number] [address] [place] [address], [place] [address] Sep, [facility] [address] [id number] [address] [place] [address], [place] [address] Sep, [facility] [address] [id number] [address] [place] [address], [place] [address] August, [facility] [address] [id number] [address] [place] [address], [place] [address] August, [facility] [address] [id number] [address] [place] [address], [place] [address] August, [facility] [address] [id number] [address] [place] [address], [place] [address] August, [facility] [address] [id number] [address] [place] [address], [place] [address] August, [facility] [address] [id number] [address] [place] [address], [place] [address] August, [facility] [address] [id number] [address] [place] [address], [place] [address] Jul, [facility] [address] [id number] [address] [place] [address], [place] [address] Jul, [facility] [address] [id number] [address] [place] [address], [place] [address] Jun, [facility] [address] [id number] [address] [place] [address], [place] [address] Jun, [facility] [address] [id number] [address] [place] [address], [place] [address] May, [facility] [address] [id number] [address] [place] [address], [place] [address] Apr, [facility] [address] [id number] [address] [place] [address], [place] [address] Apr, [facility] [address] [id number] [address] [place] [address], [place] [address] Apr, [facility] [address] [id number] [address] [place] [address], [place] [address] Apr, [facility] [address] [id number] [address] [place] [address], [place] [address] Apr, [facility] [address] [id number] [address] [place] [address], [place] [address] Apr, [facility] [address] [id number] [address] [place] [address], [place] [address] Mar, [facility] [address] [id number] [address] [place] [address], [place] [address] Mar, [facility] [address] [id number] [address] [place] [address], [place] [address] Mar, [facility] [address] [id number] [address] [place] [address], [place] [address] Mar, [facility] [address] [id number] [address] [place] [address], [place] [address] Mar, [facility] [address] [id number] [address] [place] [address], [place] [address] Mar, [facility] [address] [id number] [address] [place] [address], [place] [address] Mar, [facility] [address] [id number] [address] [place] [address], [place] [address] Mar, [facility] [address] [id number] [address] [place] [address], [place] [address] Mar, [facility] [address] [id number] [address] [place] [address], [place] [address] Mar, [facility] [address] [id number] [address] [place] [address], [place] [address] Mar, [facility] [address] [id number] [address] [place] [address], [place] [address] Mar, [facility] [address] [id number] [address] [place] [address], [place] [address] Nov, [facility] [address] [id number] [address] [place] [address], [place] [address] Nov, [facility] [address] [id number] [address] [place] [address], [place] [address] Sep, [facility] [address] [id number] [address] [place] [address], [place] [address] August, [facility] [address] [id number] [address] [place] [address], [place] [address] August, [facility] [address] [id number] [address] [place] [address], [place] [address] August, [facility] [address] [facility] [id number] [address] [place] [address] August, [facility] [address] [facility] [id number] [address] [place] [address] August, [facility] [address] [facility] [id number] [address] [place] [address] Jul, IMMUNIZATIONS No Known Immunizations SOCIAL HISTORY Never Assessed REASON FOR VISIT Controlled Med Refill/Vyvanse PLAN OF CARE VITAL SIGNS MEDICATIONS Unknown [...]
--- OUTSIDE RECORDS SUMMARY | 2019-10-07 12:32 | XMS REPORT ---
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 Active 61759886 Problem Surveillance of contraceptive injection Z30.42 Active 070741245 Problem Hypercholesteremia E78.0 Active 1 9429648 Problem Hypothyroid E03.9 Active 72346256 Problem Abdominal pain, left upper quadrant R10.12 Active 928740115 Problem Cannabis use disorder, mild, abuse F12.10 Active 55501148 Problem BMI 45.0-49.9, adult Z68.42 Active 926066945 Problem Anxiety F41.9 Active 18158137 Problem Anxiety disorder, unspecified F41.9 Active 928571341 Problem Tobacco use Z72.0 Active 62636031 0 Problem Ganglion of joint M67.40 Active 78 388993 Problem Chest pain, unspecified R07.9 Active 90447314 ALLERGIES No Information ENCOUNTERS Encounter Location Date Diagnosis [facility] [address] [facility] [id number] [address] [place] [address] Dec, [facility] [address] [facility] [id number] [address] [place] [address] Oct, [facility] [address] [facility] [id number] [address] [place] [address] Sep, Type 2 diabetes mellitus E11 .9 [facility] [id number] [place] [address] Sep, [facility] [address] [address] Sep, Type 2 diabetes mellitus E11 .9 [facility] [address] [place] [id number] [address] [place] [address] Sep, Hypothyroid E03.9 ; Type 2 d iabetes mellitus E11.9 ; Toe pain, left M79.675 and BMI 45.0-49.9, adult Z68.42 [facility] [address] [place] [id number] [address] [place] [address] Jul, [facility] [address] [place] [id number] [address] [place] [address] May, Influenza-like illness R69 a nd BMI 40.0-44.9, adult Z68.41 [place] [address] [place] [id number] [address] [place] [address] 08 May, 2017 Binge eating disorder F50.81 [place] [address] [address] Apr, [place] [address] [address] Apr, Binge eating disorder F50.81 [place] [address] [address] Mar, Binge eating disorder F50.81 [facility] [address] [place] [id number] [address] [place] [address] Feb, [place] [address] [address] Feb, Diabetes E11.9 ; Binge eatin g disorder F50.81 and BMI 40.0-44.9, adult Z68.41 [place] [address] [address] Jan, Anxiety disorder, unspecifie d F41.9 and Anxiety F41.9 [facility] [address] [facility] [id number] [address] [place] [address] Jan, Anxiety disorder, unspecifie d F41.9 ; Cannabis use disorder, mild, abuse F12.10 and Adjustment disorder with mixed disturbance of em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 [place] [address] [facility] [id number] [address] [place] [address] August, Hypothyroid E03.9 [facility] [address] [facility] [id number] [address] [place] [address] August, Type 2 diabetes mellitus E11 .9 [place] [address] [place] [id number] [address] [place] [address] Jun, [place] [address] [place] [id number] [address] [place] [address] Jun, Diabetes E11.9 ; Dysuria R30 .0 and Urinary tract infection without hematuria, site unspecified N39.0 [place] [address] [place] [id number] [address] [place] [address] Jun, [place] [address] [place] [id number] [address] [place] [address] May, [place] [address] [place] [id number] [address] [place] [address] Mar, [place] [address] [place] [id number] [address] [place] [address] Mar, Pain of left leg M79.605 [facility] [address] [facility] [id number] [address] [place] [address] Feb, [place] [address] [place] [id number] [address] [place] [address] Feb, Type 2 diabetes mellitus E11 .9 [facility] [address] [place] [id number] [address] [place] [address] Jan, [place] [address] [facility] [id number] [address] [place] [address] Jan, [facility] [address] [facility] [id number] [address] [place] [address] Jan, Discharge of breast N64.52 [facility] [address] [facility] [id number] [address] [place] [address] 03 Jan, 2016 Menorrhagia N92.0 ; Encounte [...] N60.12 and Anxiety F41.9 [facility] [address] [facility] [id number] [address] [place] [address] Dec, Diabetes E11.9 ; Right foot pain M79.671 ; Left upper quadrant pain R10.12 ; Pain in right leg M79.604 ; Pain of left leg M79.605 ; Other chest pain R07.89 ; Palpitations R00.2 ; Hypothyroid E03.9 ; Discharge of breast N64.52 and Hyperlipidemia, unspecified hyperlipidemia type E78.5 [facility] [address] [facility] [id number] [address] [place] [address] Dec, [facility] [address] [facility] [id number] [address] [place] [address] Oct, [facility] [address] [facility] [id number] [address] [place] [address] Oct, [facility] [address] [facility] [id number] [address] [place] [address] Sep, [facility] [address] [facility] [id number] [address] [place] [address] August, [facility] [address] [facility] [id number] [address] [place] [address] August, [facility] [address] [facility] [id number] [address] [place] [address] Jul, Hypothyroid E03.9 [facility] [address] [facility] [id number] [address] [place] [address] Jun, [facility] [address] [facility] [id number] [address] [place] [address] May, Menorrhagia N92.0 ; Diabetes E11.9 ; Hypothyroid E03.9 and Tobacco abuse Z72.0 [facility] [address] [facility] [id number] [address] [place] [address] May, [facility] [address] [facility] [id number] [address] [place] [address] 09 May, 2015 Well woman exam Z01.419 ; BM I 45.0-49.9, adult Z68.42 ; Type 2 diabetes mellitus E11.9 ; Weight loss R63.4 ; Chest pain, unspecified R07.9 ; Hypercholesteremia E78.0 and Routine screening for STI (sexually transmitted infection) Z11.3 [facility] [address] [address] 05 May, 2015 [place] [address] [address] 04 May, 2015 Well woman exam Z01.419 [...] left N60.12 and Anxiety F41.9 [place] [address] [address] 04 May, 2015 [place] [address] [address] Mar, [place] [address] [address] Feb, [place] [address] [address] Feb, Diabetes E11.9 ; Eustachian tube dysfunction, right H69.81 and Myalgia M79.1 [place] [address] [address] Feb, [place] [address] [address] Nov, Mastodynia, female 611.[address] [address] Oct, Obesity 278.00 [place] [address] [address] Oct, Diabetes mellitus without me ntion of complication, type II or unspecified type, not stated as uncontrolled 250.00 ; Anxiety 300.00 and Obesity 278.00 [facility] [address] [id number] [address] [place] [address] Sep, [facility] [address] [id number] [address] [place] [address] Sep, Diabetes mellitus without me ntion of complication, type II or unspecified type, not stated as uncontrolled 250.00 and Anxiety 300.00 [facility] [address] [id number] [address] [place] [address] Sep, [facility] [address] [id number] [address] [place] [address] Jul, [facility] [address] [id number] [address] [place] [address] Jul, [facility] [address] [id number] [address] [place] [address] Jun, [facility] [address] [id number] [address] [place] [address] Jun, [facility] [address] [id number] [address] [place] [address] May, [facility] [address] [id number] [address] [place] [address] May, [facility] [address] [id number] [address] [place] [address] Apr, [facility] [address] [id number] [address] [place] [address] Apr, [facility] [address] [id number] [address] [place] [address] Apr, [facility] [address] [facility] [id number] [address] [place] [address] Apr, [facility] [address] [id number] [address] [place] [address] Apr, [facility] [address] [id number] [address] [place] [address], [place] [address] Apr, [facility] [address] [id number] [address] [place] [address], [place] [address] Apr, [facility] [address] [id number] [address] [place] [address], [place] [address] Apr, [facility] [address] [id number] [address] [place] [address], [place] [address] Apr, [facility] [address] [id number] [address] [place] [address], [place] [address] Apr, [facility] [address] [id number] [address] [place] [address], [place] [address] Apr, [facility] [address] [id number] [address] [place] [address], [place] [address] Feb, [facility] [address] [id number] [address] [place] [address], [place] [address] Feb, [facility] [address] [id number] [address] [place] [address], [place] [address] Dec, [facility] [address] [id number] [address] [place] [address], [place] [address] Dec, [facility] [address] [id number] [address] [place] [address], [place] [address] Dec, [facility] [address] [id number] [address] [place] [address], [place] [address] 04 Dec, 2013 [facility] [address] [id number] [address] [place] [address], [place] [address] Dec, [facility] [address] [id number] [address] [place] [address], [place] [address] Dec, 2013 [facility] [address] [id number] [address] [place] [address], [place] [address] Oct, [facility] [address] [id number] [address] [place] [address] [address] Oct, [facility] [address] [id number] [address] [place] [address] Sep, [facility] [address] [id number] [facility] [place] [address] Sep, [facility] [address] [id number] [address] [place] [address], [place] [address] Sep, [facility] [address] [id number] [address] [place] [address], [place] [address] Sep, [facility] [address] [id number] [address] [place] [address], [place] [address] Sep, [facility] [address] [id number] [address] [place] [address], [place] [address] Sep, [facility] [address] [id number] [address] [place] [address], [place] [address] Sep, [facility] [address] [id number] [address] [place] [address], [place] [address] Sep, [facility] [address] [id number] [address] [place] [address], [place] [address] August, [facility] [address] [id number] [address] [place] [address], [place] [address] August, [facility] [address] [id number] [address] [place] [address], [place] [address] August, [facility] [address] [id number] [address] [place] [address], [place] [address] August, [facility] [address] [id number] [address] [place] [address], [place] [address] August, [facility] [address] [id number] [address] [place] [address], [place] [address] August, [facility] [address] [id number] [address] [place] [address], [place] [address] Jul, [facility] [address] [id number] [address] [place] [address], [place] [address] 10 Jul, 2013 [facility] [address] [id number] [address] [place] [address], [place] [address] 14 Jun, 2012 [facility] [address] [id number] [address] [place] [address], [place] [address] Jun, [facility] [address] [id number] [address] [place] [address], [place] [address] May, [facility] [address] [id number] [address] [place] [address], [place] [address] Apr, [facility] [address] [id number] [address] [place] [address], [place] [address] Apr, [facility] [address] [id number] [address] [place] [address], [place] [address] Apr, [facility] [address] [id number] [address] [place] [address], [place] [address] Apr, [facility] [address] [id number] [address] [place] [address], [place] [address] Apr, [facility] [address] [id number] [address] [place] [address], [place] [address] Apr, [facility] [address] [id number] [address] [place] [address], [place] [address] Mar, [facility] [address] [id number] [address] [place] [address], [place] [address] Mar, [facility] [address] [id number] [address] [place] [address], [place] [address] Mar, [facility] [address] [id number] [address] [place] [address], [place] [address] Mar, [facility] [address] [id number] [address] [place] [address], [place] [address] Mar, [facility] [address] [id number] [address] [place] [address], [place] [address] Mar, [facility] [address] [id number] [address] [place] [address], [place] [address] Mar, [facility] [address] [id number] [address] [place] [address], [place] [address] Mar, [facility] [address] [id number] [address] [place] [address], [place] [address] Mar, [facility] [address] [id number] [address] [place] [address], [place] [address] Mar, [facility] [address] [id number] [address] [place] [address], [place] [address] Mar, [facility] [address] [id number] [address] [place] [address], [place] [address] Mar, [facility] [address] [id number] [address] [place] [address], [place] [address] Nov, [facility] [address] [id number] [address] [place] [address] Nov, [facility] [address] [id number] [address] [place] [address] Sep, [facility] [address] [id number] [address] [place] [address] August, [facility] [address] [id number] [address] [place] [address] August, [facility] [address] [id number] [address] [place] [address] August, [facility] [address] [id number] [address] [place] [address] August, [facility] [address] [id number] [address] [place] [address] August, [facility] [address] [id number] [address] [place] [address] Jul, IMMUNIZATIONS No Known Immunizations SOCIAL HISTORY Never Assessed REASON FOR VISIT Controlled Med Refill 05/08/17 PLAN OF CARE VITAL SIGNS MEDICATIONS Medication Instructions Dosage Frequency Start Date End Date Duration S honorio Vyvanse 30 MG Orally Once a day 1 capsule in the morning 24h Apr, 28 days Active RESULTS No Results PROCEDURES [...]
--- OUTSIDE RECORDS SUMMARY | 2019-10-07 12:32 | XMS REPORT ---
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 Active 99650879 Problem Hypothyroid E03.9 Active 39403565 Problem Hypercholesteremia E78.0 Active 1 2593925 Problem Fibrocystic breast, right N60.11 Acti ve 62378546 Problem Abdominal pain, left upper quadrant R10.12 Active 709335363 Problem Surveillance of contraceptive injection Z30.42 Active 597471210 Problem Cannabis use disorder, mild, abuse F12.10 Active 55831437 Problem Diabetes E11.9 Active 04461297 Problem BMI 45.0-49.9, adult Z68.42 Active 121617920 Problem Anxiety disorder, unspecified F41.9 Active 303525441 Problem Anxiety F41.9 Active 56512463 Problem Ganglion of joint M67.40 Active 78 287410 Problem Tobacco use Z72.0 Active 10495980 0 ALLERGIES No Information SOCIAL HISTORY Never Assessed PLAN OF CARE VITAL SIGNS MEDICATIONS Medication Instructions Dosage Frequency Start Date End Date Duration S tatus Levothyroxine Sodium 75 MCG Orally Once a day 1 tablet 24h 30 days Active RESULTS No Results PROCEDURES No [...]
--- OUTSIDE RECORDS SUMMARY | 2019-10-07 12:32 | XMS REPORT ---
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 Active 22506637 Problem Surveillance of contraceptive injection Z30.42 Active 090026757 Problem Hypercholesteremia E78.0 Active 1 8032288 Problem Hypothyroid E03.9 Active 39666363 Problem Abdominal pain, left upper quadrant R10.12 Active 137455064 Problem Cannabis use disorder, mild, abuse F12.10 Active 30572760 Problem BMI 45.0-49.9, adult Z68.42 Active 626143089 Problem Anxiety F41.9 Active 76820263 Problem Anxiety disorder, unspecified F41.9 Active 697609284 Problem Tobacco use Z72.0 Active 00717690 0 Problem Ganglion of joint M67.40 Active 78 964094 Problem Chest pain, unspecified R07.9 Active 46847627 ALLERGIES No Information ENCOUNTERS Encounter Location Date Diagnosis [facility] [address] [facility] [id number] [address] [place] [address] Dec, [facility] [address] [facility] [id number] [address] [place] [address] Oct, [facility] [address] [facility] [id number] [address] [place] [address] Sep, Hypothyroid E03.9 ; Type 2 d iabetes mellitus E11.9 ; Toe pain, left M79.675 and BMI 45.0-49.9, adult Z68.42 [place] [address] [address] Jul, [facility] [address] [address] May, Influenza-like illness R69 a nd BMI 40.0-44.9, adult Z68.41 [facility] [address] [address] May, Binge eating disorder F50.81 [place] [address] [address] Apr, [place] [address] [address] Apr, Binge eating disorder F50.81 [place] [address] [address] Mar, Binge eating disorder F50.81 [place] [address] [address] Feb, [place] [address] [address] Feb, Diabetes E11.9 ; Binge eatin g disorder F50.81 and BMI 40.0-44.9, adult Z68.41 [place] [address] [address] 11 Jan, 2017 Anxiety disorder, unspecifie d F41.9 and Anxiety F41.9 [place] [address] [address] 04 Jan, 2017 Anxiety disorder, unspecifie d F41.9 ; Cannabis use disorder, mild, abuse F12.10 and Adjustment disorder with mixed disturbance of em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 [place] [address] [address] August, Hypothyroid E03.9 [facility] [address] [id number] [address] [place] [address] August, Type 2 diabetes mellitus E11 .9 [facility] [address] [id number] [address] [place] [address] Jun, [facility] [address] [id number] [address] [place] [address] Jun, Diabetes E11.9 ; Dysuria R30 .0 and Urinary tract infection without hematuria, site unspecified N39.0 [facility] [address] [id number] [address] [place] [address] Jun, [facility] [address] [id number] [address] [place] [address] May, [facility] [address] [id number] [address] [place] [address] Mar, [facility] [address] [id number] [address] [place] [address] Mar, Pain of left leg M79.605 [facility] [address] [id number] [address] [place] [address] Feb, [facility] [address] [id number] [address] [place] [address] Feb, Type 2 diabetes mellitus E11 .9 [facility] [address] [id number] [address] [place] [address] Jan, [facility] [address] [id number] [address] [place] [address] Jan, [facility] [address] [id number] [address] [place] [address] Jan, Discharge of breast N64.52 [facility] [address] [id number] [address] [place] [address] Jan, Menorrhagia N92.0 ; Encounte r for [...] Fibrocystic breast, left N60.12 and Anxiety F41.9 [place] [address] [place] [id number] [address] [place] [address] Dec, Diabetes E11.9 ; Right foot pain M79.671 ; Left upper quadrant pain R10.12 ; Pain in right leg M79.604 ; Pain of left leg M79.605 ; Other chest pain R07.89 ; Palpitations R00.2 ; Hypothyroid E03.9 ; Discharge of breast N64.52 and Hyperlipidemia, unspecified hyperlipidemia type E78.5 [place] [address] [place] [id number] [address] [place] [address] Dec, [place] [address] [place] [id number] [address] [place] [address] Oct, [place] [address] [place] [id number] [address] [place] [address] Oct, [facility] [address] [facility] [id number] [address] [place] [address] Sep, [facility] [address] [place] [id number] [address] [place] [address] August, [place] [address] [place] [id number] [address] [place] [address] August, [place] [id number] [place] [address] Jul, Hypothyroid E03.9 [place] [address] [place] [id number] [address] [place] [address] Jun, [place] [address] [place] [id number] [address] [place] [address] May, Menorrhagia N92.0 ; Diabetes E11.9 ; Hypothyroid E03.9 and Tobacco abuse Z72.0 [place] [address] [place] [id number] [address] [place] [address] May, [place] [address] [place] [id number] [address] [place] [address] May, Well woman exam Z01.419 ; BM I 45.0-49.9, adult Z68.42 ; Type 2 diabetes mellitus E11.9 ; Weight loss R63.4 ; Chest pain, unspecified R07.9 ; Hypercholesteremia E78.0 and Routine screening for STI (sexually transmitted infection) Z11.3 [place] [address] [place] [id number] [address] [place] [address] 05 May, 2015 [place] [address] [place] [id number] [address] [place] [address] 04 May, 2015 Well woman exam Z01.419 [...] Fibrocystic breast, left N60.12 and Anxiety F41.[address] [address] May, [place] [address] [address] Mar, [address] [address] Feb, [address] [address] Feb, Diabetes E11.9 ; Eustachian tube dysfunction, right H69.81 and Myalgia M79.[address] [address] Feb, [address] [address] Nov, Mastodynia, female 611.[address] [address] Oct, Obesity 278.[address] [address] Oct, Diabetes mellitus without me ntion of complication, type II or unspecified type, not stated as uncontrolled 250.00 ; Anxiety 300.00 and Obesity 278.[address] [address] Sep, [address] [address] Sep, Diabetes mellitus without me ntion of complication, type II or unspecified type, not stated as uncontrolled 250.00 and Anxiety 300.00 [facility] [address] [id number] [address] [place] [address], [place] [address] Sep, [facility] [address] [id number] [address] [place] [address], [place] [address] Jul, [facility] [address] [id number] [address] [place] [address], [place] [address] Jul, [facility] [address] [id number] [address] [place] [address], [place] [address] Jun, [facility] [address] [id number] [address] [place] [address], [place] [address] Jun, [facility] [address] [id number] [address] [place] [address], [place] [address] May, [facility] [address] [id number] [address] [place] [address], [place] [address] May, [facility] [address] [id number] [address] [place] [address], [place] [address] Apr, [facility] [address] [id number] [address] [place] [address], [place] [address] Apr, [facility] [address] [id number] [address] [place] [address] Apr, [facility] [address] [id number] [address] [place] [address] Apr, [facility] [address] [id number] [address] [place] [address] Apr, [facility] [address] [id number] [address] [place] [address], [place] [address] Apr, [facility] [address] [id number] [address] [place] [address], [place] [address] Apr, [facility] [address] [id number] [address] [place] [address] Apr, [facility] [address] [id number] [address] [place] [address] Apr, [facility] [address] [id number] [address] [place] [address], [place] [address] Apr, [facility] [address] [id number] [address] [place] [address], [place] [address] Apr, [facility] [address] [id number] [address] [place] [address], [place] [address] Feb, [facility] [address] [id number] [address] [place] [address], [place] [address] Feb, [facility] [address] [id number] [address] [place] [address], [place] [address] Dec, [facility] [address] [id number] [address] [place] [address], [place] [address] Dec, [facility] [address] [id number] [address] [place] [address], [place] [address] Dec, [facility] [address] [id number] [address] [place] [address], [place] [address] Dec, [facility] [address] [id number] [address] [place] [address], [place] [address] Dec, [facility] [address] [id number] [address] [place] [address], [place] [address] Dec, [facility] [address] [id number] [address] [place] [address], [place] [address] Oct, [facility] [address] [id number] [address] [place] [address], [place] [address] Oct, [facility] [address] [id number] [address] [place] [address], [place] [address] Sep, [facility] [address] [id number] [address] [place] [address], [place] [address] Sep, [facility] [address] [id number] [address] [place] [address], [place] [address] Sep, [facility] [address] [id number] [facility] [place] [address] Sep, [facility] [address] [id number] [facility] [place] [address] Sep, [facility] [address] [id number] [address] [place] [address], [place] [address] Sep, [facility] [address] [id number] [address] [place] [address], [place] [address] Sep, [facility] [address] [id number] [address] [place] [address], [place] [address] Sep, [facility] [address] [id number] [address] [place] [address], [place] [address] August, [facility] [address] [id number] [address] [place] [address], [place] [address] August, [facility] [address] [id number] [address] [place] [address], [place] [address] August, [facility] [address] [id number] [address] [place] [address], [place] [address] August, [facility] [address] [id number] [address] [place] [address], [place] [address] August, [facility] [address] [id number] [address] [place] [address], [place] [address] August, [facility] [address] [id number] [address] [place] [address], [place] [address] Jul, [facility] [address] [id number] [address] [place] [address], [place] [address] Jul, [facility] [address] [id number] [address] [place] [address], [place] [address] Jun, [facility] [address] [id number] [address] [place] [address], [place] [address] Jun, [facility] [address] [id number] [address] [place] [address], [place] [address] 06 May, 2012 [facility] [address] [id number] [address] [place] [address], [place] [address] 28 Apr, 2012 [facility] [address] [id number] [address] [place] [address], [place] [address] 16 Apr, 2012 [facility] [address] [id number] [address] [place] [address], [place] [address] Apr, [facility] [address] [id number] [address] [place] [address], [place] [address] Apr, [facility] [address] [id number] [address] [place] [address], [place] [address] Apr, [facility] [address] [id number] [address] [place] [address], [place] [address] Apr, [facility] [address] [id number] [address] [place] [address], [place] [address] Mar, [facility] [address] [id number] [address] [place] [address], [place] [address] Mar, [facility] [address] [id number] [address] [place] [address], [place] [address] Mar, [facility] [address] [id number] [address] [place] [address], [place] [address] Mar, [facility] [address] [id number] [address] [place] [address], [place] [address] Mar, [facility] [address] [id number] [address] [place] [address], [place] [address] Mar, [facility] [address] [id number] [address] [place] [address], [place] [address] 13 Mar, 2012 [facility] [address] [id number] [address] [place] [address], [place] [address] 13 Mar, 2012 [facility] [address] [id number] [address] [place] [address], [place] [address] 07 Mar, 2012 [facility] [address] [id number] [address] [place] [address] Mar, [facility] [address] [id number] [address] [place] [address] Mar, [facility] [address] [id number] [address] [place] [address] Mar, [facility] [address] [id number] [address] [place] [address] Nov, [facility] [address] [id number] [address] [place] [address] Nov, [facility] [address] [id number] [address] [place] [address] Sep, [facility] [address] [id number] [address] [place] [address] August, [facility] [address] [id number] [address] [place] [address] August, [facility] [address] [id number] [address] [place] [address] August, [facility] [address] [id number] [address] [place] [address] August, [facility] [address] [id number] [address] [place] [address] August, [facility] [address] [id number] [address] [place] [address] Jul, IMMUNIZATIONS No Known Immunizations SOCIAL HISTORY Never Assessed REASON FOR VISIT Controlled Med Refill 04/10/17 PLAN OF CARE VITAL SIGNS MEDICATIONS Medication Instructions Dosage Frequency Start Date End Date Duration S tatus Vyvanse 30 MG Orally Once a day 1 capsule in the morning 24h Mar, 30 days Active RESULTS No Results PROCEDURES [...] removed from [facility] May Hospitalization History miscarriage--over night stay 02/2017
--- OUTSIDE RECORDS SUMMARY | 2019-10-07 12:33 | XMS REPORT ---
Author Author Dano ROSEN [facility] Address [address] [place] [address] Care Team Providers Care Pipeline Operator Name Role Phone DAISY ROSEN Unavailable PROBLEMS Type Condition ICD9-CM Code [facility] Code Onset Dates Condition S tatus SNOMED Code Problem Anxiety disorder, unspecified F41.9 Active 400628012 Problem Cannabis use disorder, mild, abuse F12.10 Active 68727602 Problem BMI 45.0-49.9, adult Z68.42 Active 773575029 Problem Ganglion of joint M67.40 Active 78 739971 Problem Tobacco use Z72.0 Active 65699214 0 Problem Anxiety F41.9 Active 54876799 Problem Type 2 diabetes mellitus E11.9 Activ e 73881441 Problem Fibrocystic breast, right N60.11 Acti ve 66746697 Problem Hypercholesteremia E78.0 Active 1 3025132 Problem Binge eating disorder F50.81 Active 796669855 Problem Fibrocystic breast, left N60.12 Activ e 12177657 Problem Hypertriglyceridemia E78.1 Active 649712928 Problem Chest pain, unspecified R07.9 Active 97057072 Problem Surveillance of contraceptive injection Z30.42 Active 882962171 Problem Abdominal pain, left upper quadrant R10.12 Active 570159599 Problem Hypothyroid E03.9 Active 93138788 Problem 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 Active [id number] ALLERGIES No Information ENCOUNTERS Encounter Location Date Diagnosis [facility] [id number] [place] [address] May, Type 2 diabetes mellitus E11.9 [facility] [address] [place] [address] May, [facility] [id number] [place] [address] Jul, Type 2 diabetes mellitus E11.9 [address] [address] Jun, Type 2 diabetes mellitus E11.9 ; Onychom ycosis B35.1 and Morbid obesity E66.01 [address] [address] [address] 18 May, 2018 Type 2 diabetes mellitus E11.9 ; Hypothy roid E03.9 ; Tobacco use Z72.0 and Vaginal yeast infection B37.3 [address] [address] [address] 11 May, 2018 BMI 45.0-49.9, adult Z68.42 [address] [address] [address] 11 May, 2018 BMI 45.0-49.9, adult Z68.42 [address] [address] [address] 07 May, 2018 BMI 45.0-49.9, adult Z68.42 [address] [address] [address] Apr, BMI 45.0-49.9, adult Z68.42 [address] [address] [address] Mar, [place] [address] [address] Mar, BMI 45.0-49.9, adult Z68.42 [place] [address] [address] Feb, [place] [address] [address] Feb, [place] [address] [address] Feb, BMI 45.0-49.9, adult Z68.42 [place] [address] [address] Jan, BMI 45.0-49.9, adult Z68.42 [place] [address] [address] Jan, [place] [address] [address] 24 Dec, 2017 History of miscarriage Z87.59 ; Type 2 d iabetes mellitus E11.9 ; Hyperglycemia R73.9 ; Yeast vaginitis B37.3 ; BMI 45.0-49.9, adult Z68.42 and Binge eating disorder F50.81 [address] [place] [address] [address] 17 Dec, 2017 BMI 45.0-49.9, adult Z68.42 ; Hypothyroi d E03.9 and Type 2 diabetes mellitus E11.[address] [address] Dec, Onychomycosis B35.1 and Type 2 diabetes mellitus with diabetic neuropathy, unspecified whether chcf insulin use E11.[address] [address] Oct, Hypertriglyceridemia E78.[address] [address] Oct, Type 2 diabetes mellitus E11.9 ; Hyperch olesteremia E78.0 and Hypothyroid E03.9 [address] [place] [address] [address] Sep, BMI 45.0-49.9, adult Z68.42 [address] [address] [address] Sep, Type 2 diabetes mellitus E11.9 [place] [address] [address] Sep, [place] [address] [address] Sep, Type 2 diabetes mellitus E11.9 [address] [address] [address] Sep, Hypothyroid E03.9 ; Type 2 diabetes frances itus E11.9 ; Toe pain, left M79.675 and BMI 45.0-49.9, adult Z68.42 [address] [place] [address] [address] Jul, [facility] [address] [facility] [id number] [place] [address] May, Influenza-like illness R69 a nd BMI 40.0-44.9, adult Z68.41 [place] [address] [address] May, Binge eating disorder F50.81 [address] [place] [address] [address] Apr, [place] [address] [address] Apr, Binge eating disorder F50.81 [address] [place] [address] [address] Mar, Binge eating disorder F50.81 [address] [place] [address] [address] 16 Feb, 2017 [address] [place] [address] [address] Feb, Diabetes E11.9 ; Binge eating disorder F 50.81 and BMI 40.0-44.9, adult Z68.41 [address] [place] [address] [address] Jan, Anxiety disorder, unspecified F41.9 and Anxiety F41.9 [address] [place] [address] [address] 04 Jan, 2017 Anxiety disorder, unspecified F41.9 ; Ca nnabis use disorder, mild, abuse F12.10 and Adjustment disorder with mixed disturbance of em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 [address] [place] [address] [address] August, Hypothyroid E03.9 [address] [place] [address] [address] August, Type 2 diabetes mellitus E11.9 [address] [place] [address] [address] Jun, [address] [address] [address] Jun, Diabetes E11.9 ; Dysuria R30.0 and Urina ry tract infection without hematuria, site unspecified N39.0 [place] [address] [address] Jun, [address] [place] [address] [address] May, [address] [place] [address] [address] Mar, [address] [place] [address] [address] Mar, Pain of left leg M79.605 [address] [place] [address] [address] Feb, [place] [address] [address] Feb, Type 2 diabetes mellitus E11.9 [address] [place] [address] [address] Jan, [place] [address] [address] Jan, [place] [address] [address] Jan, Discharge of breast N64.52 [address] [place] [address] Jan, Menorrhagia N92.0 ; Encounter for control [...] Fibrocystic breast, left N60.12 and Anxiety F41.9 [address] [place] [address] [address] Dec, Diabetes E11.9 ; Right foot pain M79.671 ; Left upper quadrant pain R10.12 ; Pain in right leg M79.604 ; Pain of left leg M79.605 ; Other chest pain R07.89 ; Palpitations R00.2 ; Hypothyroid E03.9 ; Discharge of breast N64.52 and Hyperlipidemia, unspecified hyperlipidemia type E78.5 [address] [place] [address] [address] Dec, [address] [address] [address] Oct, [address] [address] [address] Oct, [place] [address] [address] Sep, [address] [place] [address] [address] August, [address] [place] [address] [address] August, [address] [place] [address] [address] Jul, Hypothyroid E03.9 [address] [place] [address] [address] Jun, [address] [place] [address] [address] May, Menorrhagia N92.0 ; Diabetes E11.9 ; Hyp othyroid E03.9 and Tobacco abuse Z72.0 [address] [place] [address] [address] May, [address] [place] [address] [address] May, Well woman exam Z01.419 ; BMI 45.0-49.9, adult Z68.42 ; Type 2 diabetes mellitus E11.9 ; Weight loss R63.4 ; Chest pain, unspecified R07.9 ; Hypercholesteremia E78.0 and Routine screening for STI (sexually transmitted infection) Z11.3 [address] [place] [address] [address] 05 May, [address] [address] 04 May, 2015 Well woman exam Z01.419 [...] Fibrocystic breast, left N60.12 and Anxiety F41.9 [address] [place] [address] [address] 04 May, 2015 [address] [place] [address] [address] Mar, [place] [address] [address] Feb, [address] [address] Feb, Diabetes E11.9 ; Eustachian tube dysfunc tion, right H69.81 and Myalgia M79.[address] [address] Feb, [address] [address] Nov, Mastodynia, female 611.[address] [address] Oct, Obesity 278.[address] [address] Oct, Diabetes mellitus without mention of com plication, type II or unspecified type, not stated as uncontrolled 250.00 ; Anxiety 300.00 and Obesity 278.[address] [address] Sep, [address] [address] Sep, Diabetes mellitus without mention of com plication, type II or unspecified type, not stated as uncontrolled 250.00 and Anxiety 300.[address] [address] Sep, [address] [address] Jul, [facility] [id number] [place] [address] Jul, [facility] [id number] [place] [address] Jun, [facility] [id number] [place] [address] Jun, [facility] [id number] [place] [address] May, [facility] [id number] [place] [address] May, [facility] [id number] [place] [address] Apr, [facility] [id number] [place] [address] Apr, [facility] [id number] [place] [address] Apr, [facility] [id number] [place] [address] Apr, [facility] [id number] [place] [address] Apr, [facility] [id number] [place] [address] Apr, [facility] [id number] [place] [address] Apr, [facility] [id number] [place] [address] Apr, [facility] [id number] [place] [address] Apr, [facility] [id number] [place] [address] Apr, [facility] [id number] [place] [address] Apr, [facility] [id number] [place] [address] Feb, [facility] [address] [id number] [place] [address] Feb, [facility] [address] [facility] [id number] [place] [address] Dec, [facility] [id number] [place] [address] Dec, [facility] [id number] [place] [address] Dec, [facility] [address] [facility] [id number] [place] [address] Dec, [facility] [id number] [place] [address] Dec, [facility] [id number] [place] [address] Dec, [facility] [id number] [place] [address] Oct, [facility] [id number] [place] [address] Oct, [facility] [id number] [place] [address] Sep, [facility] [id number] [place] [address] Sep, [facility] [id number] [place] [address] Sep, [facility] [id number] [place] [address] Sep, [facility] [id number] [place] [address] Sep, [facility] [id number] [place] [address] Sep, [facility] [id number] [place] [address] Sep, [facility] [id number] [place] [address] Sep, [facility] [id number] [place] [address] August, [facility] [id number] [place] [address] August, [facility] [id number] [place] [address] August, [facility] [id number] [place] [address] August, [facility] [id number] [place] [address] August, [facility] [id number] [place] [address] August, [facility] [id number] [place] [address] Jul, [facility] [id number] [place] [address] Jul, [facility] [id number] [place] [address] Jun, [facility] [id number] [place] [address] Jun, [facility] [id number] [place] [address] May, [facility] [id number] [place] [address] Apr, [facility] [id number] [place] [address] Apr, [facility] [id number] [place] [address] Apr, [facility] [id number] [place] [address] Apr, [facility] [id number] [place] [address] Apr, [facility] [id number] [place] [address] Apr, [facility] [id number] [place] [address] Mar, [facility] [id number] [place] [address] Mar, [facility] [id number] [place] [address] Mar, [facility] [id number] [place] [address] Mar, [facility] [id number] [place] [address] Mar, [facility] [id number] [place] [address] Mar, [facility] [id number] [place] [address] Mar, [facility] [id number] [place] [address] Mar, [facility] [id number] [place] [address] Mar, [facility] [id number] [place] [address] Mar, [facility] [id number] [place] [address] Mar, [facility] [id number] [place] [address] Mar, [facility] [id number] [place] [address] Nov, [facility] [id number] [place] [address] Nov, [facility] [id number] [place] [address] Sep, [facility] [id number] [place] [address] August, [facility] [id number] [place] [address] August, [facility] [id number] [place] [address] August, [facility] [id number] [place] [address] August, [facility] [id number] [place] [address] August, [facility] [id number] [place] [address] Jul, IMMUNIZATIONS No Known Immunizations SOCIAL HISTORY [...] surgeries Hospitalization History Abses removed from [facility] May Hospitalization History miscarriage--over night stay 02/2017
--- OUTSIDE RECORDS SUMMARY | 2019-10-07 12:33 | XMS REPORT ---
Author Author Dano ROSEN Organization [facility] Address [address] [place] [address] Care Team Providers Care Pharmacy Service Associate Name Role Phone DAISY ROSEN Unavailable PROBLEMS Type Condition ICD9-CM Code [id number] Code Onset Dates Condition S tatus SNOMED Code Problem Anxiety disorder, unspecified F41.9 Active 616331266 Problem Cannabis use disorder, mild, abuse F12.10 Active 54033251 Problem BMI 45.0-49.9, adult Z68.42 Active 471422010 Problem Ganglion of joint M67.40 Active 78 412194 Problem Tobacco use Z72.0 Active 62175141 0 Problem Anxiety F41.9 Active 83866037 Problem Type 2 diabetes mellitus E11.9 Activ e 47573252 Problem Fibrocystic breast, right N60.11 Acti ve 94030709 Problem Hypercholesteremia E78.0 Active 1 3936919 Problem Binge eating disorder F50.81 Active 624333097 Problem Fibrocystic breast, left N60.12 Activ e 67892570 Problem Hypertriglyceridemia E78.1 Active 093800725 Problem Chest pain, unspecified R07.9 Active 59098443 Problem Surveillance of contraceptive injection Z30.42 Active 564160886 Problem Abdominal pain, left upper quadrant R10.12 Active 388960565 Problem Hypothyroid E03.9 Active 67081701 Problem 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 Active 50693402 ALLERGIES No Information ENCOUNTERS Encounter Location Date Diagnosis [facility] [address] [id number] [place] [address] May, [facility] [address] [id number] [place] [address] Jul, Type 2 diabetes mellitus E11.9 [facility] [address] [id number] [place] [address] Jun, Type 2 diabetes mellitus E11.9 ; Onychom ycosis B35.1 and Morbid obesity E66.01 [place] [address] [address] May, Type 2 diabetes mellitus E11.9 ; Hypothy roid E03.9 ; Tobacco use Z72.0 and Vaginal yeast infection B37.3 [place] [address] [address] May, BMI 45.0-49.9, adult Z68.42 [place] [address] [address] May, BMI 45.0-49.9, adult Z68.42 [place] [address] [address] May, BMI 45.0-49.9, adult Z68.42 [place] [address] [address] Apr, BMI 45.0-49.9, adult Z68.42 [place] [address] [address] Mar, [place] [address] [address] Mar, BMI 45.0-49.9, adult Z68.42 [place] [address] [address] Feb, [place] [address] [address] Feb, [place] [address] [address] Feb, BMI 45.0-49.9, adult Z68.42 [place] [address] [address] Jan, BMI 45.0-49.9, adult Z68.42 [place] [address] [address] Jan, [address] [address] Dec, History of miscarriage Z87.59 ; Type 2 d iabetes mellitus E11.9 ; Hyperglycemia R73.9 ; Yeast vaginitis B37.3 ; BMI 45.0-49.9, adult Z68.42 and Binge eating disorder F50.[address] [address] 17 Dec, 2017 BMI 45.0-49.9, adult Z68.42 ; Hypothyroi d E03.9 and Type 2 diabetes mellitus E11.[address] [address] Dec, Onychomycosis B35.1 and Type 2 diabetes mellitus with diabetic neuropathy, 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.[address] [address] Oct, Hypertriglyceridemia E78.[address] [address] Oct, Type 2 diabetes mellitus E11.9 ; Hyperch olesteremia E78.0 and Hypothyroid E03.[address] [address] Sep, BMI 45.0-49.9, adult Z68.[address] [address] Sep, Type 2 diabetes mellitus E11.[address] [address] Sep, [address] [address] Sep, Type 2 diabetes mellitus E11.[address] [address] Sep, Hypothyroid E03.9 ; Type 2 diabetes frances itus E11.9 ; Toe pain, left M79.675 and BMI 45.0-49.9, adult Z68.42 [place] [address] [address] Jul, [facility] [address] [facility] [id number] [place] [address] May, Influenza-like illness R69 a nd BMI 40.0-44.9, adult Z68.41 [place] [address] [address] May, Binge eating disorder F50.81 [place] [address] [address] Apr, [place] [address] [address] Apr, Binge eating disorder F50.81 [place] [address] [address] Mar, Binge eating disorder F50.81 [place] [address] [address] Feb, [place] [address] [address] Feb, Diabetes E11.9 ; Binge eating disorder F 50.81 and BMI 40.0-44.9, adult Z68.41 [place] [address] [address] Jan, Anxiety disorder, unspecified F41.9 and Anxiety F41.9 [place] [address] [address] 04 Jan, 2017 Anxiety disorder, unspecified F41.9 ; Ca nnabis use disorder, mild, abuse F12.10 and Adjustment disorder with mixed disturbance of em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 [place] [address] [address] August, Hypothyroid E03.9 [place] [address] [address] August, Type 2 diabetes mellitus E11.9 [facility] [address] [address] Jun, [place] [address] [address] Jun, Diabetes E11.9 ; Dysuria R30.0 and Urina ry tract infection without hematuria, site unspecified N39.0 [place] [address] [address] Jun, [place] [address] [address] May, [place] [address] [address] Mar, [place] [address] [address] Mar, Pain of left leg M79.605 [place] [address] [address] Feb, [place] [address] [address] Feb, Type 2 diabetes mellitus E11.9 [place] [address] [address] Jan, [place] [address] [address] Jan, [place] [address] [address] Jan, Discharge of breast N64.52 [place] [address] [address] Jan, Menorrhagia N92.0 ; Encounter for control [...] Fibrocystic breast, left N60.12 and Anxiety F41.9 [place] [address] [address] Dec, Diabetes E11.9 ; Right foot pain M79.671 ; Left upper quadrant pain R10.12 ; Pain in right leg M79.604 ; Pain of left leg M79.605 ; Other chest pain R07.89 ; Palpitations R00.2 ; Hypothyroid E03.9 ; Discharge of breast N64.52 and Hyperlipidemia, unspecified hyperlipidemia type E78.5 [place] [address] [place] [id number] [place] [address] Dec, [place] [address] [address] Oct, [place] [address] [address] Oct, [place] [address] [address] Sep, [place] [address] [address] August, [place] [address] [address] August, [place] [address] [address] Jul, Hypothyroid E03.9 [place] [address] [address] Jun, [place] [address] [address] May, Menorrhagia N92.0 ; Diabetes E11.9 ; Hyp othyroid E03.9 and Tobacco abuse Z72.0 [place] [address] [address] 15 May, 2015 [place] [address] [address] May, Well woman exam Z01.419 ; BMI 45.0-49.9, adult Z68.42 ; Type 2 diabetes mellitus E11.9 ; Weight loss R63.4 ; Chest pain, unspecified R07.9 ; Hypercholesteremia E78.0 and Routine screening for STI (sexually transmitted infection) Z11.3 [place] [address] [address] 05 May, 2015 [place] [address] [address] 04 May, 2015 Well woman exam Z01.419 [...] Fibrocystic breast, left N60.12 and Anxiety F41.9 [place] [address] [address] May, [facility] [address] [address] Mar, [facility] [address] [address] Feb, [place] [address] [address] Feb, Diabetes E11.9 ; Eustachian tube dysfunc tion, right H69.81 and Myalgia M79.1 [place] [address] [address] Feb, [place] [address] [address] Nov, Mastodynia, female 611.71 [place] [address] [address] Oct, Obesity 278.00 [place] [address] [address] Oct, Diabetes mellitus without mention of com plication, type II or unspecified type, not stated as uncontrolled 250.00 ; Anxiety 300.00 and Obesity 278.00 [place] [address] [address] Sep, [place] [address] [address] Sep, Diabetes mellitus without mention of com plication, type II or unspecified type, not stated as uncontrolled 250.00 and Anxiety 300.00 [place] [address] [address] Sep, [facility] [address] [address] Jul, [place] [address] [address] Jul, [facility] [address] [id number] [place] [address] Jun, [facility] [address] [id number] [place] [address] Jun, [facility] [address] [id number] [place] [address] May, [facility] [address] [id number] [place] [address] May, [facility] [address] [id number] [place] [address] Apr, [facility] [address] [id number] [place] [address] Apr, [facility] [address] [id number] [place] [address] Apr, [facility] [address] [id number] [place] [address] Apr, [facility] [address] [id number] [place] [address] Apr, [facility] [address] [id number] [place] [address] Apr, [facility] [address] [id number] [place] [address] Apr, [facility] [address] [id number] [place] [address] Apr, [facility] [address] [id number] [place] [address] Apr, [facility] [address] [id number] [place] [address] Apr, [facility] [address] [id number] [place] [address] Apr, [facility] [address] [id number] [place] [address] Feb, [facility] [address] [id number] [place] [address] Feb, [facility] [address] [id number] [facility] [place] [address] Dec, 2013 [facility] [address] [facility] [id number] [facility] [place] [address] Dec, 2013 [facility] [address] [facility] [id number] [facility] [place] [address] Dec, 2013 [facility] [address] [id number] [facility] [place] [address] Dec, 2013 [facility] [address] [facility] [id number] [facility] [place] [address] Dec, 2013 [facility] [address] [facility] [id number] [place] [address] Dec, 2013 [facility] [address] [id number] [place] [address] Oct, [facility] [address] [id number] [place] [address] Oct, 2013 [facility] [address] [facility] [id number] [place] [address] Sep, [facility] [address] [id number] [place] [address] Sep, [facility] [address] [id number] [place] [address] Sep, [facility] [address] [id number] [place] [address] Sep, [facility] [address] [facility] [id number] [place] [address] Sep, [facility] [address] [id number] [place] [address] Sep, [facility] [address] [id number] [place] [address] Sep, [facility] [address] [id number] [place] [address] Sep, [facility] [address] [id number] [place] [address] August, [facility] [address] [id number] [place] [address] August, [facility] [address] [id number] [place] [address] August, [facility] [address] [id number] [place] [address] August, [facility] [address] [id number] [place] [address] August, [facility] [address] [id number] [place] [address] August, [facility] [address] [id number] [place] [address] Jul, [facility] [address] [id number] [place] [address] Jul, [facility] [address] [id number] [place] [address] Jun, [facility] [address] [id number] [place] [address] Jun, [facility] [address] [id number] [place] [address] May, [facility] [address] [id number] [place] [address] Apr, [facility] [address] [id number] [place] [address] Apr, [facility] [address] [id number] [place] [address] Apr, [facility] [address] [id number] [place] [address] Apr, [facility] [address] [id number] [place] [address] Apr, [facility] [address] [id number] [place] [address] Apr, [facility] [address] [id number] [place] [address] Mar, [facility] [address] [id number] [place] [address] Mar, [facility] [address] [id number] [place] [address] Mar, [facility] [address] [id number] [place] [address] Mar, [facility] [address] [id number] [place] [address] Mar, [facility] [address] [id number] [place] [address] Mar, [facility] [address] [id number] [place] [address] Mar, [facility] [address] [id number] [place] [address] Mar, [facility] [address] [id number] [place] [address] Mar, [facility] [address] [id number] [place] [address] Mar, [facility] [address] [id number] [place] [address] Mar, [facility] [address] [id number] [place] [address] Mar, [facility] [address] [id number] [place] [address] Nov, [facility] [address] [id number] [place] [address] Nov, [facility] [address] [id number] [place] [address] Sep, [facility] [address] [id number] [place] [address] August, [facility] [address] [id number] [place] [address] August, [facility] [address] [id number] [place] [address] August, [facility] [address] [id number] [place] [address] August, [facility] [address] [id number] [place] [address] August, [facility] [address] [id number] [place] [address] Jul, IMMUNIZATIONS No Known Immunizations SOCIAL HISTORY [...]
--- OUTSIDE RECORDS SUMMARY | 2019-10-07 12:34 | XMS REPORT | Continuity of Care Document ---
Demographics Preferred Language Unknown Marital Status Unknown Congregational Affiliation Unknown Race Unknown Ethnic Group Unknown Author Organization Unknown Address Unknown Phone Unavailable Allergies Active Description Code Type Severity Reaction Onset Reported/Identified Relationship to Patient Clinical Status Yes TAPE TAPE Mild N/A 05/23/2009 Yes latex [id number] Drug Allergy Mild RASH, ITCHING 09/22/2019 Medications There is no data. Problems Date Dx Coded Attending Type Code Diagnosis Diagnosed By 03/26/1511 GEO DACOSTA DO Ot Z01.8 18 ENCOUNTER FOR OTHER PREPROCEDURAL EXAMIN 03/26/1511 GEO DACOSTA DO Ot Z11.5 9 ENCOUNTER FOR SCREENING FOR OTHER VIRAL 08/09/2008 709.9 DERM ATITIS OTHER SKIN DISORDERS 08/09/2008 PEDRO MAN DO 709.9 DERMATITIS OTHER SKIN DISORDERS 08/09/2008 PEDRO MAN DO 709.9 DERMATITIS OTHER SKIN DISORDERS 08/09/2008 MAUREEN BUTTS, ARMAND 709.9 DERMATITIS OTHER SKIN DISORDERS 08/09/2008 709.9 DERM ATITIS OTHER SKIN DISORDERS 08/09/2008 CARLOS A PHAM, LAMBERTO Hood 709.9 DERMATITIS OTHER SKIN DISORDERS 08/09/2008 LUIS JIMENEZ APRN A 70 9.9 DERMATITIS OTHER SKIN DISORDERS 08/09/2008 AMOS HDEZ, KAVITHA 709.9 DERMATITIS OTHER SKIN DISORDERS 08/09/2008 DAISY ROSEN APRN S 709.9 DERMATITIS OTHER SKIN DISORDERS 08/09/2008 DAISY ROSEN APRN S 709.9 DERMATITIS OTHER SKIN DISORDERS 08/09/2008 DAISY ROSEN APRN S 709.9 DERMATITIS OTHER SKIN DISORDERS 08/09/2008 DAISY ROSEN APRN S 709.9 DERMATITIS OTHER SKIN DISORDERS 08/09/2008 SAVANNAH HDEZ, MARY Hood 709 .9 DERMATITIS OTHER SKIN DISORDERS 05/18/2009 648.00 ANGELIC BETES MELLITUS, IN THE MOTHER, COMPLICATING , CHILDBIRTH, OR THE PUERPERIUM, UNSPECIFIED TO EPISODE OF CARE OR NOT AP 05/18/2009 649.50 SPO TTING COMPLICATING , UNSPECIFIED TO EPISODE OF CARE OR NOT APPLICABLE 05/18/2009 787.01 DEYANIRA SEA WITH VOMITING 05/18/2009 V23.89 SUP ERVISION OF OTHER HIGH-RISK 05/18/2009 PEDRO MAN DO 648.00 DIABETES MELLITUS, IN THE MOTHER, COMPLICATING , CHILDBIRTH, OR THE PUERPERIUM, UNSPECIFIED TO EPISODE OF CARE OR NOT AP 05/18/2009 PEDRO MAN DO 649.50 SPOTTING COMPLICATING , UNSPECIFIED TO EPISODE OF CARE OR NOT APPLICABLE 05/18/2009 PEDRO MAN DO 787.01 NAUSEA WITH VOMITING 05/18/2009 PEDRO MAN DO V23.89 SUPERVISION OF OTHER HIGH-RISK 05/18/2009 PEDRO MAN DO 648.00 DIABETES MELLITUS, IN THE MOTHER, COMPLICATING , CHILDBIRTH, OR THE PUERPERIUM, UNSPECIFIED TO EPISODE OF CARE OR NOT AP 05/18/2009 PEDRO MAN DO 649.50 SPOTTING COMPLICATING , UNSPECIFIED TO EPISODE OF CARE OR NOT APPLICABLE 05/18/2009 PEDRO MAN DO 787.01 NAUSEA WITH VOMITING 05/18/2009 PEDRO MAN DO V23.89 SUPERVISION OF OTHER HIGH-RISK 05/18/2009 MAUREEN PHAM, ARMAND 648.00 DIABETES MELLITUS, IN THE MOTHER, COMPLICATING , CHILDBIRTH, OR THE PUERPERIUM, UNSPECIFIED TO EPISODE OF CARE OR NOT AP 05/18/2009 MAUREEN BUTTS ARMAND 649.50 SPOTTING COMPLICATING , UNSPECIFIED TO EPISODE OF CARE OR NOT APPLICABLE 05/18/2009 MAUREEN BUTTS, ARMAND 787.01 NAUSEA WITH VOMITING 05/18/2009 MAUREEN BUTTS, ARMAND V23.89 SUPERVISION OF OTHER HIGH-RISK 05/18/2009 648.00 ANGELIC BETES MELLITUS, IN THE MOTHER, COMPLICATING , CHILDBIRTH, OR THE PUERPERIUM, UNSPECIFIED TO EPISODE OF CARE OR NOT AP 05/18/2009 649.50 SPO TTING COMPLICATING , UNSPECIFIED TO EPISODE OF CARE OR NOT APPLICABLE 05/18/2009 787.01 DEYANIRA SEA WITH VOMITING 05/18/2009 V23.89 SUP ERVISION OF OTHER HIGH-RISK 05/18/2009 MUOGHALU DDS, LAMBERTO N 648.00 DIABETES MELLITUS, IN THE MOTHER, COMPLI CATING , CHILDBIRTH, OR THE PUERPERIUM, UNSPECIFIED TO EPISODE OF CARE OR NOT AP 05/18/2009 MUOGHALU DDS, LAMBERTO N 649.50 SPOTTING COMPLICATING , UNSPECI FIED TO EPISODE OF CARE OR NOT APPLICABLE 05/18/2009 MUOGHALU DDS, LAMBERTO N 787.01 NAUSEA WITH VOMITING 05/18/2009 PAMELAOGHALU DDS, LAMBERTO N V23.89 SUPERVISION OF OTHER HIGH-RISK 05/18/2009 LUIS JIMENEZ APRN A 648.00 DIABETES MELLITUS, IN THE MOTHER, COMPLI CATING , CHILDBIRTH, OR THE PUERPERIUM, UNSPECIFIED TO EPISODE OF CARE OR NOT AP 05/18/2009 LUIS JIMENEZ APRN A 649.50 SPOTTING COMPLICATING , UNSPECI FIED TO EPISODE OF CARE OR NOT APPLICABLE 05/18/2009 LUIS JIMENEZ APRN A 787.01 NAUSEA WITH VOMITING 05/18/2009 LUIS JIMENEZ APRN A V23.89 SUPERVISION OF OTHER HIGH-RISK 05/18/2009 KAVITHA TRINIDAD MD 648.0 0 DIABETES MELLITUS, IN THE MOTHER, COMPLICATING , CHILDBIRTH, OR THE PUERPERIUM, UNSPECIFIED TO EPISODE OF CARE OR NOT AP 05/18/2009 KAVITHA TRINIDAD MD 649.5 0 SPOTTING COMPLICATING , UNSPECIFIED TO EPISODE OF CARE OR NOT APPLICABLE 05/18/2009 KAVITHA TRINIDAD MD 787.0 1 NAUSEA WITH VOMITING 05/18/2009 KAVITHA TRINIDAD MD V23.8 9 SUPERVISION OF OTHER HIGH-RISK 05/18/2009 DAISY ORSEN APRN 648.00 DIABETES MELLITUS, IN THE MOTHER, COMPLI CATING , CHILDBIRTH, OR THE PUERPERIUM, UNSPECIFIED TO EPISODE OF CARE OR NOT AP 05/18/2009 DAISY ROSEN APRN S 649.50 SPOTTING COMPLICATING , UNSPECI FIED TO EPISODE OF CARE OR NOT APPLICABLE 05/18/2009 JESSIKA BAD WORK GATHERER, DAISY S 787.01 NAUSEA WITH VOMITING 05/18/2009 DAISY ROSEN APRN S V23.89 SUPERVISION OF OTHER HIGH-RISK 05/18/2009 DAISY ROSEN APRN S 648.00 DIABETES MELLITUS, IN THE MOTHER, COMPLI CATING , CHILDBIRTH, OR THE PUERPERIUM, UNSPECIFIED TO EPISODE OF CARE OR NOT AP 05/18/2009 DAISY ROSEN APRN S 649.50 SPOTTING COMPLICATING , UNSPECI FIED TO EPISODE OF CARE OR NOT APPLICABLE 05/18/2009 DAISY ROSEN APRN S 787.01 NAUSEA WITH VOMITING 05/18/2009 DAISY ROSEN APRN S V23.89 SUPERVISION OF OTHER HIGH-RISK 05/18/2009 DAISY ROSEN APRN S 648.00 DIABETES MELLITUS, IN THE MOTHER, COMPLI CATING , CHILDBIRTH, OR THE PUERPERIUM, UNSPECIFIED TO EPISODE OF CARE OR NOT AP 05/18/2009 DAISY ROSEN APRN S 649.50 SPOTTING COMPLICATING , UNSPECI FIED TO EPISODE OF CARE OR NOT APPLICABLE 05/18/2009 DAISY ROSEN APRN S 787.01 NAUSEA WITH VOMITING 05/18/2009 DAISY ROSEN APRN S V23.89 SUPERVISION OF OTHER HIGH-RISK 05/18/2009 DAISY ROSEN APRN S 648.00 DIABETES MELLITUS, IN THE MOTHER, COMPLI CATING , CHILDBIRTH, OR THE PUERPERIUM, UNSPECIFIED TO EPISODE OF CARE OR NOT AP 05/18/2009 DAISY ROSEN APRN S 649.50 SPOTTING COMPLICATING , UNSPECI FIED TO EPISODE OF CARE OR NOT APPLICABLE 05/18/2009 DAIYS ROSEN APRN S 787.01 NAUSEA WITH VOMITING 05/18/2009 DAISY ROSEN APRN S V23.89 SUPERVISION OF OTHER HIGH-RISK 05/18/2009 MARY NUÑEZ MD 648 .00 DIABETES MELLITUS, IN THE MOTHER, COMPLICATING , CHILDBIRTH, OR THE PUERPERIUM, UNSPECIFIED TO EPISODE OF CARE OR NOT AP 05/18/2009 MARY NUÑEZ MD 649 .50 SPOTTING COMPLICATING , UNSPECIFIED TO EPISODE OF CARE OR NOT APPLICABLE 05/18/2009 MARY NUÑEZ MD N 787 .01 NAUSEA WITH VOMITING 05/18/2009 MARY NUÑEZ MD N V23 .89 SUPERVISION OF OTHER HIGH-RISK 08/31/2009 465.9 UPPE R RESPIRATORY INFECTION 08/31/2009 PEDRO MAN DO K 465.9 UPPER RESPIRATORY INFECTION 08/31/2009 PEDRO MAN DO 465.9 UPPER RESPIRATORY INFECTION 08/31/2009 REDDY DDS, ARMAND 465.9 UPPER RESPIRATORY INFECTION 08/31/2009 465.9 UPPE R RESPIRATORY INFECTION 08/31/2009 CARLOS A DDS, LAMBERTO N 465.9 UPPER RESPIRATORY INFECTION 08/31/2009 BARBARA TEMPLE, LUIS A 46 5.9 UPPER RESPIRATORY INFECTION 08/31/2009 AMOS HDEZ, KAVITHA 465.9 UPPER RESPIRATORY INFECTION 08/31/2009 JESSIKA BAD WORK GATHERER, DAISY S 465.9 UPPER RESPIRATORY INFECTION 08/31/2009 JESSIKA TEMPLE, DAISY S 465.9 UPPER RESPIRATORY INFECTION 08/31/2009 JESSIKA BAD WORK GATHERER, DAISY S 465.9 UPPER RESPIRATORY INFECTION 08/31/2009 JESSIKA TEMPLE, DAISY S 465.9 UPPER RESPIRATORY INFECTION 08/31/2009 MARY NUÑEZ MD 465 .9 UPPER RESPIRATORY INFECTION 08/27/2011 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) 08/27/2011 300.00 ANX IETY UNSPEC 08/27/2011 438.9 CVA LATE EFFECTS 08/27/2011 780.79 MAL AISE AND FATIGUE 08/27/2011 789.00 ABD OMINAL PAIN UNSPECIFIED SITE 08/27/2011 799.22 IRR ITIBILITY 08/27/2011 V77.1 DIAB ETES SCREENING 08/27/2011 PEDRO MAN DO K 250.02 DIABETES II UNCONTROLLED (UNCOMPLICATED) 08/27/2011 PEDRO MAN DO 300.00 ANXIETY UNSPEC 08/27/2011 PEDRO MAN DO K 438.9 CVA LATE EFFECTS 08/27/2011 JOO MAN DOA K 780.79 MALAISE AND FATIGUE 08/27/2011 PEDRO MAN DO K 789.00 ABDOMINAL PAIN UNSPECIFIED SITE 08/27/2011 MAN DO, PEDRO K 799.22 IRRITIBILITY 08/27/2011 MAN DO, PEDRO K V77.1 DIABETES SCREENING 08/27/2011 MAN DO, PEDRO K 250.02 DIABETES II UNCONTROLLED (UNCOMPLICATED) 08/27/2011 MAN DO, PEDRO K 300.00 ANXIETY UNSPEC 08/27/2011 MAN DO, PEDRO K 438.9 CVA LATE EFFECTS 08/27/2011 MAN DO, PEDRO K 780.79 MALAISE AND FATIGUE 08/27/2011 MAN DO, PEDRO K 789.00 ABDOMINAL PAIN UNSPECIFIED SITE 08/27/2011 MAN DO, PEDRO K 799.22 IRRITIBILITY 08/27/2011 MAN DO, PEDRO K V77.1 DIABETES SCREENING 08/27/2011 REDDY DDS, ARMAND 250.02 DIABETES II UNCONTROLLED (UNCOMPLICATED) 08/27/2011 REDDY DDS, ARMAND 300.00 ANXIETY UNSPEC 08/27/2011 REDYD DDS, ARMAND 438.9 CVA LATE EFFECTS 08/27/2011 REDDY DDS, ARMAND 780.79 MALAISE AND FATIGUE 08/27/2011 REDDY DDS, ARMAND 789.00 ABDOMINAL PAIN UNSPECIFIED SITE 08/27/2011 REDDY DDS, ARMAND 799.22 IRRITIBILITY 08/27/2011 REDDY DDS, ARMAND V77.1 DIABETES SCREENING 08/27/2011 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) 08/27/2011 300.00 ANX IETY UNSPEC 08/27/2011 438.9 CVA LATE EFFECTS 08/27/2011 780.79 MAL AISE AND FATIGUE 08/27/2011 789.00 ABD OMINAL PAIN UNSPECIFIED SITE 08/27/2011 799.22 IRR ITIBILITY 08/27/2011 V77.1 DIAB ETES SCREENING 08/27/2011 MUOGHALU DDS, LAMBERTO N 250.02 DIABETES II UNCONTROLLED (UNCOMPLICATED) 08/27/2011 MUOGHALU DDS, LAMBERTO N 300.00 ANXIETY UNSPEC 08/27/2011 MUOGHALU DDS, LAMBERTO N 438.9 CVA LATE EFFECTS 08/27/2011 MUOGHALU DDS, LAMBERTO N 780.79 MALAISE AND FATIGUE 08/27/2011 MUOGHALU DDS, LAMBERTO N 789.00 ABDOMINAL PAIN UNSPECIFIED SITE 08/27/2011 MUOGHALU DDS, LAMBERTO N 799.22 IRRITIBILITY 08/27/2011 CARLOS A DDS, LAMBERTO N V77.1 DIABETES SCREENING 08/27/2011 BARBARA APRN, LUIS A 250.02 DIABETES II UNCONTROLLED (UNCOMPLICATED) 08/27/2011 BARBARA LOPESN, LUIS A 300.00 ANXIETY UNSPEC 08/27/2011 BARBARA LOPESN, LUIS A 43 8.9 CVA LATE EFFECTS 08/27/2011 BARBARA LOPESN, LUIS A 780.79 MALAISE AND FATIGUE 08/27/2011 BARBARA LOPESN, LUIS A 789.00 ABDOMINAL PAIN UNSPECIFIED SITE 08/27/2011 BARBARA TEMPLE, LUIS A 799.22 IRRITIBILITY 08/27/2011 ROBBIE JIMENEZ APRNIDI A V7 7.1 DIABETES SCREENING 08/27/2011 KAVITHA TRINIDAD MD 250.0 2 DIABETES II UNCONTROLLED (UNCOMPLICATED) 08/27/2011 KAVITHA TRINIDAD MD 300.0 0 ANXIETY UNSPEC 08/27/2011 KAVITHA TRINIDAD MD 438.9 CVA LATE EFFECTS 08/27/2011 KAVITHA TRINIDAD MD 780.7 9 MALAISE AND FATIGUE 08/27/2011 KAVITHA TRINIDAD MD 789.0 0 ABDOMINAL PAIN UNSPECIFIED SITE 08/27/2011 KAVITHA TRINIDAD MD 799.2 2 IRRITIBILITY 08/27/2011 KAVITHA TRINIDAD MD V77.1 DIABETES SCREENING 08/27/2011 SHANTI ROSEN APRNNDA S 250.02 DIABETES II UNCONTROLLED (UNCOMPLICATED) 08/27/2011 JESSIKA TEMPLE DAISY S 300.00 ANXIETY UNSPEC 08/27/2011 SHANTI ROSEN APRNNDA S 438.9 CVA LATE EFFECTS 08/27/2011 JESSIKA TEMPLE, DAISY S 780.79 MALAISE AND FATIGUE 08/27/2011 JESSIKA TEMPLE DAISY S 789.00 ABDOMINAL PAIN UNSPECIFIED SITE 08/27/2011 JESSIKA TEMPLE DAISY S 799.22 IRRITIBILITY 08/27/2011 JESSIKA TEMPLE DAISY S V77.1 DIABETES SCREENING 08/27/2011 JESSIKA TEMPLE DAISY S 250.02 DIABETES II UNCONTROLLED (UNCOMPLICATED) 08/27/2011 JESSIKA BAD WORK GATHERER, DAISY S 300.00 ANXIETY UNSPEC 08/27/2011 JESSIKA BAD WORK GATHERER, DAISY S 438.9 CVA LATE EFFECTS 08/27/2011 JESSIKA BAD WORK GATHERER, DAISY S 780.79 MALAISE AND FATIGUE 08/27/2011 JESSIKA BAD WORK GATHERER, DAISY S 789.00 ABDOMINAL PAIN UNSPECIFIED SITE 08/27/2011 JESSIKA BAD WORK GATHERER, DAISY S 799.22 IRRITIBILITY 08/27/2011 JESSIKA BAD WORK GATHERER, DAISY S V77.1 DIABETES SCREENING 08/27/2011 JESSIKA BAD WORK GATHERER, DAISY S 250.02 DIABETES II UNCONTROLLED (UNCOMPLICATED) 08/27/2011 JESSIKA BAD WORK GATHERER, DAISY S 300.00 ANXIETY UNSPEC 08/27/2011 JESSIKA BAD WORK GATHERER, DAISY S 438.9 CVA LATE EFFECTS 08/27/2011 JESSIKA BAD WORK GATHERER, DAISY S 780.79 MALAISE AND FATIGUE 08/27/2011 JESSIKA BAD WORK GATHERER, DAISY S 789.00 ABDOMINAL PAIN UNSPECIFIED SITE 08/27/2011 JESSIKA BAD WORK GATHERER, DAISY S 799.22 IRRITIBILITY 08/27/2011 JESSIKA BAD WORK GATHERER, DAISY S V77.1 DIABETES SCREENING 08/27/2011 JESSIKA BAD WORK GATHERER, DAISY S 250.02 DIABETES II UNCONTROLLED (UNCOMPLICATED) 08/27/2011 JESSIKA BAD WORK GATHERER, DAISY S 300.00 ANXIETY UNSPEC 08/27/2011 JESSIKA BAD WORK GATHERER, DAISY S 438.9 CVA LATE EFFECTS 08/27/2011 JESSIKA BAD WORK GATHERER, DAISY S 780.79 MALAISE AND FATIGUE 08/27/2011 JESSIKA BAD WORK GATHERER, DAISY S 789.00 ABDOMINAL PAIN UNSPECIFIED SITE 08/27/2011 JESSIKA BAD WORK GATHERER, DAISY S 799.22 IRRITIBILITY 08/27/2011 JESSIKA BAD WORK GATHERER, DAISY S V77.1 DIABETES SCREENING 08/27/2011 MARY NUÑEZ MD 250 .02 DIABETES II UNCONTROLLED (UNCOMPLICATED) 08/27/2011 MARY NUÑEZ MD 300 .00 ANXIETY UNSPEC 08/27/2011 MARY NUÑEZ MD 438 .9 CVA LATE EFFECTS 08/27/2011 SAVANNAH HDEZ, MARY N 780 .79 MALAISE AND FATIGUE 08/27/2011 SAVANNAH HDEZ, MARY N 789 .00 ABDOMINAL PAIN UNSPECIFIED SITE 08/27/2011 SAVANNAH HDEZ, MARY N 799 .22 IRRITIBILITY 08/27/2011 SAVANNAH HDEZ, MARY N V77 .1 DIABETES SCREENING 11/26/2011 305.20 CAN NABIS ABUSE 11/26/2011 V58.69 MED ICATION HIGH RISK 11/26/2011 MAN DO, PEDRO K 305.20 CANNABIS ABUSE 11/26/2011 MAN DO, PEDRO K V58.69 MEDICATION HIGH RISK 11/26/2011 MAN DO, PEDRO K 305.20 CANNABIS ABUSE 11/26/2011 MAN DO, PEDRO K V58.69 MEDICATION HIGH RISK 11/26/2011 REDDY DDS, ARMAND 305.20 CANNABIS ABUSE 11/26/2011 REDDY DDS, ARMAND V58.69 MEDICATION HIGH RISK 11/26/2011 305.20 CAN NABIS ABUSE 11/26/2011 V58.69 MED ICATION HIGH RISK 11/26/2011 MUOGHALU DDS, LAMBERTO N 305.20 CANNABIS ABUSE 11/26/2011 MUOGHALU DDS, LAMBERTO N V58.69 MEDICATION HIGH RISK 11/26/2011 BARBARA APRN, LUIS A 305.20 CANNABIS ABUSE 11/26/2011 BARBARA TEMPLE, LUIS A V58.69 MEDICATION HIGH RISK 11/26/2011 KAVITHA TRINIDAD MD 305.2 0 CANNABIS ABUSE 11/26/2011 KAVITHA TRINIDAD MD V58.6 9 MEDICATION HIGH RISK 11/26/2011 JESSIKA BAD WORK GATHERER, DAISY S 305.20 CANNABIS ABUSE 11/26/2011 JESSIKA TEMPLE, DAISY S V58.69 MEDICATION HIGH RISK 11/26/2011 JESSIKA TEMPLE DAISY S 305.20 CANNABIS ABUSE 11/26/2011 JESSIKA TEMPLE DAISY S V58.69 MEDICATION HIGH RISK 11/26/2011 JESSIKA TEMPLE DAISY S 305.20 CANNABIS ABUSE 11/26/2011 JESSIKA TEMPLE DAISY S V58.69 MEDICATION HIGH RISK 11/26/2011 DAISY ROSEN APRN S 305.20 CANNABIS ABUSE 11/26/2011 DAISY ROSEN APRN S V58.69 MEDICATION HIGH RISK 11/26/2011 MARY NUÑEZ MD N 305 .20 CANNABIS ABUSE 11/26/2011 MARY NUÑEZ MD V58 .69 MEDICATION HIGH RISK 04/01/2012 244.9 HYPO THYROIDISM 04/01/2012 250.00 ANGELIC BETES II CONTROLLED (UNCOMPLICATED) 04/01/2012 727.41 CHRISTINE GLION OF JOINT 04/01/2012 V69.2 HIGH -RISK SEXUAL BEHAVIOR 04/01/2012 MAN DO, PEDRO K 244.9 HYPOTHYROIDISM 04/01/2012 MAN DO, PEDRO K 250.00 DIABETES II CONTROLLED (UNCOMPLICATED) 04/01/2012 MAN DO, PEDRO K 727.41 GANGLION OF JOINT 04/01/2012 MAN DO, PEDRO K V69.2 HIGH-RISK SEXUAL BEHAVIOR 04/01/2012 MAN DO, PEDRO K 244.9 HYPOTHYROIDISM 04/01/2012 MAN DO, PEDRO K 250.00 DIABETES MELLITUS TYPE 2 04/01/2012 MAN DO, PEDRO K 727.41 GANGLION OF JOINT 04/01/2012 MAN DO, PEDRO K V69.2 HIGH-RISK SEXUAL BEHAVIOR 04/01/2012 REDDY DDS, ARMAND 244.9 HYPOTHYROIDISM 04/01/2012 REDDY DDS, ARMAND 250.00 DIABETES MELLITUS TYPE 2 04/01/2012 REDDY DDS, ARMAND 727.41 GANGLION OF JOINT 04/01/2012 REDDY DDS, ARMAND V69.2 HIGH- RISK SEXUAL BEHAVIOR 04/01/2012 244.9 HYPO THYROIDISM 04/01/2012 250.00 ANGELIC BETES MELLITUS TYPE 2 04/01/2012 727.41 CHRISTINE GLION OF JOINT 04/01/2012 V69.2 HIGH -RISK SEXUAL BEHAVIOR 04/01/2012 MUOGHALU DDS, LAMBERTO N 244.9 HYPOTHYROIDISM 04/01/2012 MUOGHALU DDS, LAMBERTO N 250.00 DIABETES MELLITUS TYPE 2 04/01/2012 MUOGHALU DDS, LAMBERTO N 727.41 GANGLION OF JOINT 04/01/2012 MUOGHALU DDS, LAMBERTO N V69.2 HIGH-RISK SEXUAL BEHAVIOR 04/01/2012 LUIS JIMENEZ APRN A 24 4.9 HYPOTHYROIDISM 04/01/2012 BARBARA BAD WORK GATHERER, LUIS A 250.00 DIABETES MELLITUS TYPE 2 04/01/2012 BARBARA BAD WORK GATHERER, LUIS A 727.41 GANGLION OF JOINT 04/01/2012 BARBARA BAD WORK GATHERER, LUIS A V6 9.2 HIGH-RISK SEXUAL BEHAVIOR 04/01/2012 KAVITHA TRINIDAD MD 244.9 HYPOTHYROIDISM 04/01/2012 KAVITHA TRINIDAD MD 250.0 0 DIABETES MELLITUS TYPE 2 04/01/2012 KAVITHA TRINIDAD MD 727.4 1 GANGLION OF JOINT 04/01/2012 KAVITHA TRINIDAD MD V69.2 HIGH-RISK SEXUAL BEHAVIOR 04/01/2012 JESSIKA BAD WORK GATHERER, DAISY S 244.9 HYPOTHYROIDISM 04/01/2012 JESSIKA BAD WORK GATHERER, DAISY S 250.00 DIABETES MELLITUS TYPE 2 04/01/2012 JESSIKA BAD WORK GATHERER, DAISY S 727.41 GANGLION OF JOINT 04/01/2012 JESSIKA BAD WORK GATHERER, DAISY S V69.2 HIGH-RISK SEXUAL BEHAVIOR 04/01/2012 JESSIKA BAD WORK GATHERER, DAISY S 244.9 HYPOTHYROIDISM 04/01/2012 JESSIKA BAD WORK GATHERER, DAISY S 250.00 DIABETES MELLITUS TYPE 2 04/01/2012 JESSIKA BAD WORK GATHERER, DAISY S 727.41 GANGLION OF JOINT 04/01/2012 JESSIKA BAD WORK GATHERER, DAISY S V69.2 HIGH-RISK SEXUAL BEHAVIOR 04/01/2012 JESSIKA BAD WORK GATHERER, DAISY S 244.9 HYPOTHYROIDISM 04/01/2012 JESSIKA BAD WORK GATHERER, DAISY S 250.00 DIABETES MELLITUS TYPE 2 04/01/2012 JESSIKA BAD WORK GATHERER, DAISY S 727.41 GANGLION OF JOINT 04/01/2012 JESSIKA BAD WORK GATHERER, DAISY S V69.2 HIGH-RISK SEXUAL BEHAVIOR 04/01/2012 JESSIKA BAD WORK GATHERER, DAISY S 244.9 HYPOTHYROIDISM 04/01/2012 JESSIKA BAD WORK GATHERER, DAISY S 250.00 DIABETES MELLITUS TYPE 2 04/01/2012 JESSIKA BAD WORK GATHERER, DAISY S 727.41 GANGLION OF JOINT 04/01/2012 JESSIKA BAD WORK GATHERER, DAISY S V69.2 HIGH-RISK SEXUAL BEHAVIOR 04/01/2012 SAVANNAH MD, MARY N 244 .9 HYPOTHYROIDISM 04/01/2012 MARY NUÑEZ MD N 250 .00 DIABETES MELLITUS TYPE 2 04/01/2012 MARY NUÑEZ MD N 727 .41 GANGLION OF JOINT 04/01/2012 MARY NUÑEZ MD V69 .2 HIGH-RISK SEXUAL BEHAVIOR 2012 682.3 CELL ULITIS AND ABSCESS OF UPPER ARM AND FOREARM 2012 PEDRO MAN DO 682.3 CELLULITIS AND ABSCESS OF UPPER ARM AND FOREARM 2012 PEDRO MAN DO 682.3 CELLULITIS AND ABSCESS OF UPPER ARM AND FOREARM 2012 REDDY FILOMENAS, ARMAND 682.3 CELLULITIS AND ABSCESS OF UPPER ARM AND FOREARM 2012 682.3 CELL ULITIS AND ABSCESS OF UPPER ARM AND FOREARM 2012 CARLOS A PHAM, LAMBERTO N 682.3 CELLULITIS AND ABSCESS OF UPPER ARM AND FOREARM 2012 LUIS JIMENEZ APRN 68 2.3 CELLULITIS AND ABSCESS OF UPPER ARM AND FOREARM 2012 KAVITHA TRINIDAD MD 682.3 CELLULITIS AND ABSCESS OF UPPER ARM AND FOREARM 2012 JESSIKA BAD WORK GATHERER, DAISY S 682.3 CELLULITIS AND ABSCESS OF UPPER ARM AND FOREARM 2012 JESSIKA TEMPLE DAISY S 682.3 CELLULITIS AND ABSCESS OF UPPER ARM AND FOREARM 2012 JESSIKA TEMPLE DAISY S 682.3 CELLULITIS AND ABSCESS OF UPPER ARM AND FOREARM 2012 JESSIKA TEMPLE DAISY S 682.3 CELLULITIS AND ABSCESS OF UPPER ARM AND FOREARM 2012 MARY NUÑEZ MD 682 .3 CELLULITIS AND ABSCESS OF UPPER ARM AND FOREARM 04/15/2012 PEDRO MAN DO V58.32 SUTURE REMOVAL 04/15/2012 PEDRO MAN DO V58.32 SUTURE REMOVAL 04/15/2012 REDDY FILOMENAS, ARMAND V58.32 SUTURE REMOVAL 04/15/2012 V58.32 SUT URE REMOVAL 04/15/2012 CARLOS A PHAM, LAMBERTO N V58.32 SUTURE REMOVAL 04/15/2012 LUIS JIMENEZ APRN V58.32 SUTURE REMOVAL 04/15/2012 AMOS HDEZ, KAVITHA V58.3 2 SUTURE REMOVAL 04/15/2012 JESSIKA BAD WORK GATHERER, DAISY S V58.32 SUTURE REMOVAL 04/15/2012 JESSIKA BAD WORK GATHERER, DAISY S V58.32 SUTURE REMOVAL 04/15/2012 JESSIKA BAD WORK GATHERER, DAISY S V58.32 SUTURE REMOVAL 04/15/2012 JESSIKA BAD WORK GATHERER, DAISY S V58.32 SUTURE REMOVAL 04/15/2012 SAVANNAH HDEZ, MARY Hood V58 .32 SUTURE REMOVAL 04/23/2012 DONOVAN DO, PEDRO K 278.00 OBESITY 04/23/2012 MAN DO, PEDRO K 305.1 NICOTINE DEPENDENCE 04/23/2012 DONOVAN HARRIS PEDRO K 610.1 BREAST FIBROCYSTIC DISEASE 04/23/2012 DONOVAN HARRIS PEDRO K V72.31 FREELANCE ART DIRECTOR EXAM, ROUTINE 04/23/2012 DONOVAN HARRIS PEDRO K V74.5 STD SCREEN 04/23/2012 REDDY DDS, ARMAND 278.00 OBESITY 04/23/2012 REDDY DDS, ARMAND 305.1 NICOTINE DEPENDENCE 04/23/2012 REDDY DDS, ARMAND 610.1 BREAST FIBROCYSTIC DISEASE 04/23/2012 REDDY DDS, ARMAND V72.31 FREELANCE ART DIRECTOR EXAM, ROUTINE 04/23/2012 REDDY DDS, ARMAND V74.5 STD SCREEN 04/23/2012 278.00 OBESITY 04/23/2012 305.1 OMA ALANIS DEPENDENCE 04/23/[address] FIBROCYSTIC DISEASE 04/23/2012 V72.31 FREELANCE ART DIRECTOR EXAM, ROUTINE 04/23/2012 V74.5 STD SCREEN 04/23/2012 MUOGHALU DDS, LAMBERTO N 278.00 OBESITY 04/23/2012 MUOGHALU DDS, LAMBERTO N 305.1 NICOTINE DEPENDENCE 04/23/2012 MUOGHALU DDS, LAMBERTO N 610.1 BREAST FIBROCYSTIC DISEASE 04/23/2012 MUOGHALU DDS, LAMBERTO N V72.31 FREELANCE ART DIRECTOR EXAM, ROUTINE 04/23/2012 MUOGHALU DDS, LAMBERTO N V74.5 STD SCREEN 04/23/2012 BARBARA BAD WORK GATHERER, LUIS A 278.00 OBESITY 04/23/2012 BARBARADARCY TEMPLE, LUIS A 30 5.1 NICOTINE DEPENDENCE 04/23/2012 BARBARA BAD WORK GATHERER, LUIS A 61 0.1 BREAST FIBROCYSTIC DISEASE 04/23/2012 BARBARA BAD WORK GATHERER, LUIS A V72.31 FREELANCE ART DIRECTOR EXAM, ROUTINE 04/23/2012 BARBARA BAD WORK GATHERER, LUIS A V7 4.5 STD SCREEN 04/23/2012 KAVITHA TRINIDAD MD 278.0 0 OBESITY 04/23/2012 KAVITHA TRINIDAD MD 305.1 NICOTINE DEPENDENCE 04/23/2012 KAVITHA TRINIDAD MD 610.1 BREAST FIBROCYSTIC DISEASE 04/23/2012 KAVITHA TRINIDAD MD V72.3 1 FREELANCE ART DIRECTOR EXAM, ROUTINE 04/23/2012 KAVITHA TRINIDAD MD V74.5 STD SCREEN 04/23/2012 JESSIKA TEMPLE, DAISY S 278.00 OBESITY 04/23/2012 JESSIKA TEMPLE, DAISY S 305.1 NICOTINE DEPENDENCE 04/23/2012 JESSIKA TEMPLE, DAISY S 610.1 BREAST FIBROCYSTIC DISEASE 04/23/2012 JESSIKA TEMPLE, DAISY S V72.31 FREELANCE ART DIRECTOR EXAM, ROUTINE 04/23/2012 JESSIKA LOPESN, DAISY S V74.5 STD SCREEN 04/23/2012 JESSIKA LOPESN, DAISY S 278.00 OBESITY 04/23/2012 JESSIKA LOPESN, DAISY S 305.1 NICOTINE DEPENDENCE 04/23/2012 JESSIKA LOPESN, DAISY S 610.1 BREAST FIBROCYSTIC DISEASE 04/23/2012 JESSIKA BAD WORK GATHERER, DAISY S V72.31 FREELANCE ART DIRECTOR EXAM, ROUTINE 04/23/2012 JESSIKA LOPESN, DAISY S V74.5 STD SCREEN 04/23/2012 JESSIKA LOPESN, DAISY S 278.00 OBESITY 04/23/2012 JESSIKA BAD WORK GATHERER, DAISY S 305.1 NICOTINE DEPENDENCE 04/23/2012 JESSIKA BAD WORK GATHERER, DAISY S 610.1 BREAST FIBROCYSTIC DISEASE 04/23/2012 JESSIKA BAD WORK GATHERER, DAISY S V72.31 FREELANCE ART DIRECTOR EXAM, ROUTINE 04/23/2012 JESSIKA BAD WORK GATHERER, DAISY S V74.5 STD SCREEN 04/23/2012 JESSIKA TEMPLE, DAISY S 278.00 OBESITY 04/23/2012 JESSIKA LOPESN, DAISY S 305.1 NICOTINE DEPENDENCE 04/23/2012 YONY ROSEN APRNA S 610.1 BREAST FIBROCYSTIC DISEASE 04/23/2012 SHANTI ROSEN APRNNDA S V72.31 FREELANCE ART DIRECTOR EXAM, ROUTINE 04/23/2012 YONY ROSEN APRNA S V74.5 STD SCREEN 04/23/2012 MARY NUÑEZ MD N 278 .00 OBESITY 04/23/2012 MARY NUÑEZ MD 305 .1 NICOTINE DEPENDENCE 04/23/2012 MARY NUÑEZ MD N 610 .1 BREAST FIBROCYSTIC DISEASE 04/23/2012 MARY NUÑEZ MD V72 .31 FREELANCE ART DIRECTOR EXAM, ROUTINE 04/23/2012 MARY NUÑEZ MD V74 .5 STD SCREEN 06/02/2012 V72.42 PRE GNANCY TEST POSITIVE RESULT 06/02/2012 LAMBERTO STRAUSS DDS V72.42 TEST POSITIVE RESULT 06/02/2012 LUIS JIMENEZ APRN A V72.42 TEST POSITIVE RESULT 06/02/2012 KAVITHA TRINIDAD MD V72.4 2 TEST POSITIVE RESULT 06/02/2012 SHANTI ROSEN APRNNDA S V72.42 TEST POSITIVE RESULT 06/02/2012 SHANTI ROSEN APRNNDA S V72.42 TEST POSITIVE RESULT 06/02/2012 JESSIKA TEMPLE DAISY S V72.42 TEST POSITIVE RESULT 06/02/2012 JESSIKA TEMPLE DAISY S V72.42 TEST POSITIVE RESULT 06/02/2012 MARY NUÑEZ MD V72 .42 TEST POSITIVE RESULT 01/28/2013 GEO DACOSTA DO Ot 285.1 AC POSTHEMORRHAG ANEMIA 01/28/2013 GEO DACOSTA DO Ot 648.2 2 ANEMIA-DELIVERED W P/P 01/28/2013 GEO DACOSTA DO Ot 648.8 1 ABN GLUCOSE GINETTE-DELIV 01/28/2013 GEO DACOSTA DO Ot 648.9 1 OTH CURR COND-DELIVERED 01/28/2013 GEO DACOSTA DO Ot 654.2 1 PREV DELIVRY W/ OR W/O MENT ANT 01/28/2013 GEO DACOSTA DO Ot V02.5 1 GROUP B STREPT CARRIER/SUSPECTED CARRIER 01/28/2013 GEO DACOSTA DO Ot V27.0 DELIVER-SINGLE LIVEBORN 08/04/2013 BARBARADARCY TEMPLE, LUIS A 11 2.1 CANDIDIASIS VAGINAL 08/04/2013 KAVITHA TRINIDAD MD 112.1 CANDIDIASIS VAGINAL 08/04/2013 JESSIKA BAD WORK GATHERER, DAISY S 112.1 CANDIDIASIS VAGINAL 08/04/2013 JESSIKA LOPESN, DAISY S 112.1 CANDIDIASIS VAGINAL 08/04/2013 JESSIKA BAD WORK GATHERER, DAISY S 112.1 CANDIDIASIS VAGINAL 08/04/2013 JESSIKA LOPESN, DAISY S 112.1 CANDIDIASIS VAGINAL 08/04/2013 MARY NUÑEZ MD 112 .1 CANDIDIASIS VAGINAL 12/28/2013 JESSIKA TEMPLE, DAISY S 289.3 LYMPHADENITIS UNSPECIFIED EXCEPT MESENTERIC 12/28/2013 JESSIKA TEMPLE, DAISY S 289.3 LYMPHADENITIS UNSPECIFIED EXCEPT MESENTERIC 12/28/2013 MARY NUÑEZ MD N 289 .3 LYMPHADENITIS UNSPECIFIED EXCEPT MESENTERIC 03/06/2014 LUIS HDEZ, BRENDA Kebede Ot 682.2 CELLULITIS OF TRUNK 05/17/2014 MARY NUÑEZ MD Ot 038 .9 05/17/2014 MARY NUÑEZ MD Ot 244 .9 HYPOTHYROIDISM NOS 05/17/2014 MARY NUÑEZ MD Ot 250.00 DIAB FRANCISCO WO COMPL, TYPE II OR UNSPEC TY 05/17/2014 MARY NUÑEZ MD Ot 278.00 05/17/2014 MARY NUÑEZ MD Ot 305 .1 TOBACCO USE DISORDER 05/17/2014 MARY NUÑEZ MD Ot 616 .4 ABSCESS OF VULVA NEC 05/17/2014 MARY NUÑEZ MD Ot 995.91 05/17/2014 MARY NUÑEZ MD Ot V85.42 06/18/2015 KIMBERLI FELTON BAD WORK GATHERER Ot N92 .0 EXCESSIVE AND FREQUENT MENSTRUATION WITH 10/21/2015 TIFFANY KNAPP Ot F17.210 NICOTINE DEPENDENCE, CIGARETTES, UNCOMPL 10/21/2015 TIFFANY KNAPP Ot K02.9 DENTAL CARIES, UNSPECIFIED 10/21/2015 TIFFANY KNAPP Ot K04.7 PERIAPICAL ABSCESS WITHOUT SINUS 10/22/2015 TIFFANY KNAPP Ot F17.210 NICOTINE DEPENDENCE, CIGARETTES, UNCOMPL 10/22/2015 TIFFANY KNAPP Ot K02.9 DENTAL CARIES, UNSPECIFIED 10/22/2015 TIFFANY KNAPP Ot K04.7 PERIAPICAL ABSCESS WITHOUT SINUS 02/12/2016 DAISY ROSEN GLADYS Ot N64.52 NIPPLE DISCHARGE 04/11/2016 KIMBERLI FELTON APRN Ot E11 .9 TYPE 2 DIABETES MELLITUS WITHOUT COMPLIC 04/11/2016 KIMBERLI FELTON APRN Ot N76 .4 ABSCESS OF VULVA 04/11/2016 KIMBERLI FELTON APRN Ot Z79 .4 DETENTION (CURRENT) USE OF INSULIN 04/11/2016 KIMBERLI FELTON APRN Ot Z79.82 DETENTION (CURRENT) USE OF ASPIRIN 04/11/2016 KIMBERLI FELTON APRN Ot Z79.84 HOP WORKER (CURRENT) USE OF ORAL HYPOGLYC 04/13/2016 TIFFANY KNAPP Ot N76.2 ACUTE VULVITIS 04/14/2016 KIMBERLI FELTON APRN Ot E11 .9 TYPE 2 DIABETES MELLITUS WITHOUT COMPLIC 04/14/2016 KIMBERLI FELTON APRN Ot N76 .4 ABSCESS OF VULVA 04/14/2016 KIMBERLI FELTON APRN Ot Z79 .4 HOP WORKER (CURRENT) USE OF INSULIN 04/14/2016 KIMBERLI FELTON APRN Ot Z79.82 HOP WORKER (CURRENT) USE OF ASPIRIN 04/14/2016 KIMBERLI FELTON APRN Ot Z79.84 DETENTION (CURRENT) USE OF ORAL HYPOGLYC 04/14/2016 TIFFANY KNAPP Ot N76.2 ACUTE VULVITIS 04/14/2016 TIFFANY KNAPP Ot N76.2 ACUTE VULVITIS 06/16/2016 MARY NUÑEZ MD Ot B95.62 METHICILLIN RESIS STAPH INFCT CAUSING DI 06/16/2016 MARY NUÑEZ MD Ot E03 .9 HYPOTHYROIDISM, UNSPECIFIED 06/16/2016 MARY NUÑEZ MD Ot E11.65 TYPE 2 DIABETES MELLITUS WITH HYPERGLYCE 06/16/2016 MARY NUÑEZ MD Ot E66.01 MORBID (SEVERE) OBESITY DUE TO EXCESS CA 06/16/2016 MARY NUÑEZ MD, Ot F17.210 NICOTINE DEPENDENCE, CIGARETTES, UNCOMPL 06/16/2016 MARY NUÑEZ MD, Ot L02.214 CUTANEOUS ABSCESS OF GROIN 06/16/2016 MARY NUÑEZ MD, Ot L02.215 CUTANEOUS ABSCESS OF PERINEUM 06/16/2016 MARY NUÑEZ MD, Ot L02.31 CUTANEOUS ABSCESS OF BUTTOCK 06/16/2016 MARY NUÑEZ MD, Ot L02.415 CUTANEOUS ABSCESS OF RIGHT LOWER LIMB 06/16/2016 MARY NUÑEZ MD, Ot Z68.41 BODY MASS INDEX (BMI) 40.0-44.9, ADULT 06/16/2016 MARY NUÑEZ MD, Ot Z79 .4 DETENTION (CURRENT) USE OF INSULIN 06/16/2016 MARY NUÑEZ MD, Ot Z91.19 PATIENT'S NONCOMPLIANCE W [facility] TR 01/01/2017 TIFFANY KNAPP Ot B37.3 CANDIDIASIS OF VULVA AND VAGINA 01/01/2017 TIFFANY KNAPP Ot E11.9 TYPE 2 DIABETES MELLITUS WITHOUT COMPLIC 01/01/2017 TIFFANY KNAPP Ot F17.210 NICOTINE DEPENDENCE, CIGARETTES, UNCOMPL 01/01/2017 TIFFANY KNAPP Ot N39.0 URINARY TRACT INFECTION, SITE NOT SPECIF 01/01/2017 TIFFANY KNAPP Ot R10.2 PELVIC AND PERINEAL PAIN 01/01/2017 TIFFANY KNAPP Ot Z79.4 DETENTION (CURRENT) USE OF INSULIN 01/01/2017 TIFFANY KNAPP Ot Z79.82 HOP WORKER (CURRENT) USE OF ASPIRIN 01/01/2017 TIFFANY KNAPP Ot Z79.84 DETENTION (CURRENT) USE OF ORAL HYPOGLYC 01/01/2017 TIFFANY KNAPP Ot Z87.440 PERSONAL HISTORY OF URINARY (TRACT) INFE 01/01/2017 TIFFANY KNAPP Ot Z87.59 PERSONAL HISTORY OF COMP OF PREG, CHLDBR 01/01/2017 TIFFANY KNAPP Ot Z90.89 ACQUIRED ABSENCE OF OTHER ORGANS 01/01/2017 TIFFANY KNAPP Ot Z91.14 PATIENT'S OTHER NONCOMPLIANCE WITH MEDIC 01/02/2017 TIFFANY KNAPP Ot B37.3 CANDIDIASIS OF VULVA AND VAGINA 01/02/2017 TIFFANY KNAPP Ot E11.9 TYPE 2 DIABETES MELLITUS WITHOUT COMPLIC 01/02/2017 TIFFANY KNAPP Ot F17.210 NICOTINE DEPENDENCE, CIGARETTES, UNCOMPL 01/02/2017 TIFFANY KNAPP Ot N39.0 URINARY TRACT INFECTION, SITE NOT SPECIF 01/02/2017 TIFFANY KNAPP Ot R10.2 PELVIC AND PERINEAL PAIN 01/02/2017 TIFFANY KNAPP Ot Z79.4 DETENTION (CURRENT) USE OF INSULIN 01/02/2017 TIFFANY KNAPP Ot Z79.82 DETENTION (CURRENT) USE OF ASPIRIN 01/02/2017 TIFFANY KNAPP Ot Z79.84 DETENTION (CURRENT) USE OF ORAL HYPOGLYC 01/02/2017 TIFFANY KNAPP Ot Z87.440 PERSONAL HISTORY OF URINARY (TRACT) INFE 01/02/2017 TIFFANY KNAPP Ot Z87.59 PERSONAL HISTORY OF COMP OF PREG, CHLDBR 01/02/2017 TIFFANY KNAPP Ot Z90.89 ACQUIRED ABSENCE OF OTHER ORGANS 01/02/2017 TIFFANY KNAPP Ot Z91.14 PATIENT'S OTHER NONCOMPLIANCE WITH MEDIC 02/20/2017 KIMBERLI FELTON APRN Ot F17.210 NICOTINE DEPENDENCE, CIGARETTES, UNCOMPL 02/20/2017 KIMBERLI FELTON APRN Ot O20 .0 THREATENED 02/20/2017 KIMBERLI FELTON APRN Ot O24.311 UNSP PRE-EXISTING DIABETES IN , 02/20/2017 KIMBERLI FELTON APRN Ot O99.331 SMOKING (TOBACCO) COMPLICATING 02/20/2017 KIMBERLI FELTON APRN Ot O99.89 OTH DISEASES AND CONDITIONS COMPL PREG/C 02/20/2017 KIMBERLI FELTON APRN Ot Z3A.09 9 WEEKS GESTATION OF 02/20/2017 KIMBERLI FELTON APRN Ot Z79 .4 HOP WORKER (CURRENT) USE OF INSULIN 02/20/2017 KIMBERLI FELTON APRN Ot Z79.82 DETENTION (CURRENT) USE OF ASPIRIN 02/20/2017 KIMBERLI FELTON APRN Ot Z87.59 PERSONAL HISTORY OF COMP OF PREG, CHLDBR 02/20/2017 FELTONKIMBERLI MATTHEWS Sincere BAD WORK GATHERER Ot Z90.89 ACQUIRED ABSENCE OF OTHER ORGANS 03/04/2017 DACOSTASayda HARRIS GEO C Ot O36.4XX0 MATERNAL CARE FOR INTRAUTERINE , NO 03/04/2017 DACOSTA GEO C Ot Z3A.0 9 9 WEEKS GESTATION OF 03/04/2017 OLESYA HARRIS GEO C Ot O02.1 MISSED 03/04/2017 DACOSTASayda HARRIS GEO C Ot O24.4 14 GESTATIONAL DIABETES IN , INSUL 03/04/2017 DACOSTASayda HARRIS GEO C Ot Z79.4 HOP WORKER (CURRENT) USE OF INSULIN 03/17/2017 DACOSTASayda HARRIS GEO C Ot O36.4XX0 MATERNAL CARE FOR INTRAUTERINE , NO 03/17/2017 OLESYA HARRIS GEO C Ot Z3A.0 9 9 WEEKS GESTATION OF 03/23/2017 OLESYA HARRIS GEO C Ot O02.1 MISSED 03/23/2017 OLESYA HARRIS GEO C Ot O24.4 14 GESTATIONAL DIABETES IN , INSUL 03/23/2017 DACOSTASayda HARRIS GEO C Ot Z79.4 HOP WORKER (CURRENT) USE OF INSULIN 01/13/2018 OLESYA HARRIS GEO C Ot 648.8 3 ABN GLUCOSE-ANTEPARTUM 01/13/2018 OLESYA HARRIS GEO C Ot 648.8 3 ABN GLUCOSE-ANTEPARTUM 01/13/2018 DACOSTA DO GEO C Ot 648.8 3 ABN GLUCOSE-ANTEPARTUM 01/13/2018 OLESYA HARRIS GEO C Ot 648.8 3 ABN GLUCOSE-ANTEPARTUM 01/13/2018 OLESYA HARRIS GEO C Ot 654.2 3 PREV DELIVERY, ANTEPARTUM COND 01/13/2018 OLESYA HARRIS GEO C Ot V72.6 3 PRE-PROCEDURAL LABORATORY EXAMINATION 01/13/2018 OLESYA HARRIS GEO C Ot V74.8 SCREEN-BACTERIAL DIS NEC 01/13/2018 OLESYA HARRIS GEO C Ot 285.9 ANEMIA NOS 01/13/2018 OLESYA HARRIS GEO C Ot 648.2 4 ANEMIA- 01/13/2018 OLESYA HARRIS GEO C Ot 666.1 4 POSTPART HEM NEC-POSTPAR 01/13/2018 DAISY ROSEN Ot N64.52 NIPPLE DISCHARGE 01/13/2018 DACOSTASayda HARRIS GEO C Ot O36.4XX0 MATERNAL CARE FOR INTRAUTERINE , NO 01/13/2018 DACOSTASayda HARRIS GEO C Ot Z3A.0 9 9 WEEKS GESTATION OF 01/13/2018 DACOSTASayda HARRIS GEO C Ot Z01.8 18 ENCOUNTER FOR OTHER PREPROCEDURAL EXAMIN 01/14/2018 ALLY DACOSTA DOA C Ot E03.9 HYPOTHYROIDISM, UNSPECIFIED 01/14/2018 OLESYA HARRIS GEO C Ot E11.6 5 TYPE 2 DIABETES MELLITUS WITH HYPERGLYCE 01/14/2018 OLESYA HARRIS GEO C Ot E66.0 1 MORBID (SEVERE) OBESITY DUE TO EXCESS CA 01/14/2018 OLESYA HARRIS GEO C Ot F17.2 10 NICOTINE DEPENDENCE, CIGARETTES, UNCOMPL 01/14/2018 OLESYA HARRIS GEO C Ot F32.9 MAJOR DEPRESSIVE DISORDER, SINGLE EPISOD 01/14/2018 ALLY DACOSTA DOA C Ot F41.9 ANXIETY DISORDER, UNSPECIFIED 01/14/2018 OLESYA HARRIS GEO C Ot O02.1 MISSED 01/14/2018 OLESYA HARRIS GEO C Ot Z11.2 ENCOUNTER FOR SCREENING FOR OTHER BACTER 01/14/2018 GEO DACOSTA DO Ot Z22.3 30 CARRIER OF GROUP B STREPTOCOCCUS 01/14/2018 ALLY DACOSTA DOA C Ot Z68.4 2 BODY MASS INDEX (BMI) 45.0-49.9, ADULT 01/14/2018 ALLY DACOSTA DOA C Ot Z79.8 4 DETENTION (CURRENT) USE OF ORAL HYPOGLYC 01/14/2018 OLESYA HARRIS GEO C Ot Z79.8 99 OTHER DETENTION (CURRENT) DRUG THERAPY 01/19/2018 ALLY DACOSTA DOA C Ot E03.9 HYPOTHYROIDISM, UNSPECIFIED 01/19/2018 OLESYA HARRIS GEO C Ot E11.6 5 TYPE 2 DIABETES MELLITUS WITH HYPERGLYCE 01/19/2018 OLESYA HARRIS GEO C Ot E66.0 1 MORBID (SEVERE) OBESITY DUE TO EXCESS CA 01/19/2018 OLESYA HARRIS GEO C Ot F17.2 10 NICOTINE DEPENDENCE, CIGARETTES, UNCOMPL 01/19/2018 OLESYA HARRIS GEO C Ot F32.9 MAJOR DEPRESSIVE DISORDER, SINGLE EPISOD 01/19/2018 GEO DACOSTA DO Felicity Ot F41.9 ANXIETY DISORDER, UNSPECIFIED 01/19/2018 OLESYA HARRIS GEO Felicity Ot O02.1 MISSED 01/19/2018 DACOSTASayda HARRIS GEO C Ot Z11.2 ENCOUNTER FOR SCREENING FOR OTHER BACTER 01/19/2018 DACOSTASayda HARRIS GEO C Ot Z22.3 30 CARRIER OF GROUP B STREPTOCOCCUS 01/19/2018 DACOSTASayda HARRIS GEO Felicity Ot Z68.4 2 BODY MASS INDEX (BMI) 45.0-49.9, ADULT 01/19/2018 DACOSTASayda HARRIS GEO Felicity Ot Z79.8 4 DETENTION (CURRENT) USE OF ORAL HYPOGLYC 01/19/2018 DACOSTASayda HARRIS GEO C Ot Z79.8 99 OTHER DETENTION (CURRENT) DRUG THERAPY 09/21/2018 DACOSTASayda HARRIS GEO Felicity Ot Z36.8 9 ENCOUNTER FOR OTHER SPECIFIED 05/19/2019 DACOSTASayda HARRIS GEO C Ot O20.9 HEMORRHAGE IN EARLY , UNSPECIFI 05/19/2019 DACOSTASayda HARRIS GEO Fleicity Ot Z3A.1 7 17 WEEKS GESTATION OF 05/23/2019 DACOSTASayda HARRIS GEO Felicity Ot O20.9 HEMORRHAGE IN EARLY , UNSPECIFI 05/23/2019 DACOSTASayda HARRIS GEO C Ot Z3A.1 7 17 WEEKS GESTATION OF Procedures Code Description [place] [address] A1C (IN-HOUSE) 04/01/2012 84318 MICR O ALBUMIN-IN HOUSE 04/01/2012 07986 ROUT INE VENIPUNCTURE 04/02/2012 08886 MICR OALBUMIN 04/02/2012 59854 CBC 04/02/2012 29048 CMP 04/02/2012 00693 LIPI D PANEL 04/02/2012 3660094 GF R CALC (RESULT ONLY) 04/02/2012 86063 TSH 04/03/2012 47239 ROUT INE VENIPUNCTURE 04/23/2012 73174 MAMM OGRAM, SCREENING 04/23/2012 82993 SYPH ILLIS-STATE LAB 04/23/2012 74316 HIV- STATE LAB 04/23/2012 44427 GC/C HLAM PROBE (STATE) 04/23/2012 74331 PAP SMEAR 04/23/2012 Q0091 PAP SMEAR OBTAIN SMEAR 04/23/2012 86743 TRIC HOMONAS (IN-HOUSE) 04/23/2012 13926 URIN E TEST (IN- HOUSE) 06/02/2012 74.1 LOW C ERVICAL 01/25/2013 37283 UA W / CULTURE IF INDICATED 08/04/2013 52199 ROUT INE VENIPUNCTURE 12/28/2013 45442 A1C (IN-HOUSE) 12/28/2013 91978 SED/ ESR RATE (IN HOUSE) 12/28/2013 13608 CRP 12/28/2013 91963 TSH 12/28/2013 [id number] EX CISION OF BUTTOCK SUBCU/FASCIA, OPEN A 06/14/2016 Results Test Result Range CBC With Differential/Platelet - 6 13:51 WBC 10.2 x10E3/uL 3.4-10.8 RBC 5.63 x10E6/uL 3.77-5.28 Hemoglobin 15.8 g/dL 11.1-15.9 Hematocrit 45.7 % 34.0-46.6 MCV 81 fL 79-97 MCH 28.1 pg 26.6-33.0 MCHC 34.6 g/dL 31.5-35.7 RDW 14.1 % 12.3-15.4 Platelets 374 x10E3/uL 150-379 Neutrophils 49 % Lymphs 41 % Monocytes 4 % Eos 5 % Basos 1 % Neutrophils (Absolute) 5.0 x10E3/uL 1.4- 7.0 Lymphs (Absolute) 4.2 x10E3/uL 0.7-3.1 Monocytes(Absolute) 0.4 x10E3/uL 0.1-0.9 Eos (Absolute) 0.5 x10E3/uL 0.0-0.4 Baso (Absolute) 0.1 x10E3/uL 0.0-0.2 Immature Granulocytes 0 % Immature Grans (Abs) 0.0 x10E3/uL 0.0-0. 1 Comp. Metabolic Panel (14) - 01/28/16 13 :51 Glucose, Serum 253 mg/dL 65-99 BUN 10 mg/dL 6-20 Creatinine, Serum 0.71 mg/dL 0.57-1.00 eGFR If NonAfricn Am 111 mL/min/1.73 >59 eGFR If Africn Am 128 mL/min/1.73 >5 9 BUN/Creatinine Ratio 14 8-20 Sodium, Serum 134 mmol/L 134-144 Potassium, Serum 4.9 mmol/L 3.5-5.2 Chloride, Serum 98 mmol/L 97-108 Carbon Dioxide, Total 19 mmol/L 18-29 Calcium, Serum 9.3 mg/dL 8.7-10.2 Protein, Total, Serum 7.2 g/dL 6.0-8.5 Albumin, Serum 4.2 g/dL 3.5-5.5 Globulin, Total 3.0 g/dL 1.5-4.5 A/G Ratio 1.4 1.1-2.5 Bilirubin, Total 0.3 mg/dL 0.0-1.2 Alkaline Phosphatase, S 70 IU/L 39-117 AST (SGOT) 35 IU/L 0-40 ALT (SGPT) 45 IU/L 0-32 Antinuclear Ab Reflex Davis - 01/28/16 13:51 CHRISTIAN Direct Negative Negative See below: Comment TSH - 01/28/16 13:51 TSH 5.540 uIU/mL 0.450-4.500 Rheumatoid Arthritis Factor - 01/28/16 1 3:51 RA Latex Turbid. <10.0 IU/mL 0.0-13.9 C-Reactive Protein, Quant - 01/28/16 13: 51 C-Reactive Protein, Quant 1.7 mg/L 0.0- 4.9 Serum or plasma choriogonadotropin (preg shiva test) detection - 02/01/16 10:47 Serum or plasma choriogonadotropin ( test) de tection NEGATIVE NEGATIVE Gram stain microscopy - 04/11/16 12:05 GRAM STAIN RESULT FEW GRAM POSITIVE COCCI NRG Bacteria identification in wound by cult ure - 04/11/16 12:05 Bacteria identification in wound by culture [id number] NRG FREE TEXT EXTERNAL SENSITIVITY REPORTED AT 1600, 1 06-13-15 NRG QUANTITY OF GROWTH Abundant Growth NRG MRSA AGAR MRSA isolated (Screening test for MRSA is positive) NRG CALL POSITIVES (F1 HELP) CALLED TO BROOK/ED AT 0827, 04-12-16/KD NRG Bacterial susceptibility panel - 6 12:05 Oxacillin susceptibility test by minimum inhibitory co ncentration >= NRG Gentamicin susceptibility test by minimum inhibitory c oncentration <= NRG Clindamycin susceptibility test by minimum inhibitory concentration <= NRG Erythromycin susceptibility test by minimum inhibitory concentration >= NRG Trimethoprim/sulfamethoxazole susceptibi lity test by minimum inhibitoryconcentration <= NRG Vancomycin susceptibility test by minimum inhibitory c oncentration 1 NRG Levofloxacin susceptibility test by minimum inhibitory concentration 4 NRG Rifampin susceptibility test by minimum inhibitory con centration <= NRG Tetracycline susceptibility test by minimum inhibitory concentration <= NRG Ciprofloxacin susceptibility test by minimum inhibitor y concentration R NRG Complete blood count (CBC) with automate d white blood cell (WBC) differential - 04/11/16 12:06 Blood leukocytes automated count (number/volume) 12.8 10*3/uL 4.3-11.0 Blood erythrocytes automated count (number/volume) 5.08 10*6/uL 4.35-5.85 Venous blood hemoglobin measurement (mass/volume) 14.3 g/dL 11.5-16.0 Blood hematocrit (volume fraction) 41 % 35-52 Automated erythrocyte mean corpuscular volume 81 [ foz_us] 80-99 Automated erythrocyte mean corpuscular h emoglobin (mass per erythrocyte) 28 pg 25-34 Automated erythrocyte mean corpuscular h emoglobin concentration measurement (mass/volume) 35 g/dL 32-36 Automated erythrocyte distribution width ratio 13. 5 % 10.0- 14.5 Automated blood platelet count (count/volume) 257 10*3/uL 130-400 Automated blood platelet mean volume measurement 10.3 [foz_us] 7.4-10.4 Automated blood neutrophils/100 leukocytes 73 % 42-75 Automated blood lymphocytes/100 leukocytes 19 % 12-44 Blood monocytes/100 leukocytes 5 % 0-12 Automated blood eosinophils/100 leukocytes 2 % 0-10 Automated blood basophils/100 leukocytes 0 % 0-10 Blood neutrophils automated count (number/volume) 9.4 10*3 1.8-7.8 Blood lymphocytes automated count (number/volume) 2.5 10*3 1.0-4.0 Blood monocytes automated count (number/volume) 0. 7 10*3 0.0-1.0 Automated eosinophil count 0.3 10*3/uL 0 .0-0.3 Automated blood basophil count (count/volume) 0.0 10*3/uL 0.0-0.1 Capillary blood glucose measurement by g lucometer (mass/volume) - 06/13/16 18:10 Capillary blood glucose measurement by glucometer (mas s/volume) 242 mg/dL 70-110 Complete blood count (CBC) with automate d white blood cell (WBC) differential - 06/13/16 18:11 Blood leukocytes automated count (number/volume) 13.7 10*3/uL 4.3-11.0 Blood erythrocytes automated count (number/volume) 5.56 10*6/uL 4.35-5.85 Venous blood hemoglobin measurement (mass/volume) 15.2 g/dL 11.5-16.0 Blood hematocrit (volume fraction) 43 % 35-52 Automated erythrocyte mean corpuscular volume 77 [ foz_us] 80-99 Automated erythrocyte mean corpuscular h emoglobin (mass per erythrocyte) 27 pg 25-34 Automated erythrocyte mean corpuscular h emoglobin concentration measurement (mass/volume) 35 g/dL 32-36 Automated erythrocyte distribution width ratio 13. 3 % 10.0- 14.5 Automated blood platelet count (count/volume) 377 10*3/uL 130-400 Automated blood platelet mean volume measurement 10.0 [foz_us] 7.4-10.4 Automated blood neutrophils/100 leukocytes 65 % 42-75 Automated blood lymphocytes/100 leukocytes 26 % 12-44 Blood monocytes/100 leukocytes 5 % 0-12 Automated blood eosinophils/100 leukocytes 3 % 0-10 Automated blood basophils/100 leukocytes 0 % 0-10 Blood neutrophils automated count (number/volume) 8.9 10*3 1.8-7.8 Blood lymphocytes automated count (number/volume) 3.6 10*3 1.0-4.0 Blood monocytes automated count (number/volume) 0. 7 10*3 0.0-1.0 Automated eosinophil count 0.5 10*3/uL 0 .0-0.3 Automated blood basophil count (count/volume) 0.1 10*3/uL 0.0-0.1 Complete urinalysis with reflex to cultu re - 06/13/16 18:11 Urine color determination YELLOW NRG Urine clarity determination SLIGHTLY CLOUDY NRG Urine pH measurement by test strip 6 5-9 Specific gravity of urine by test strip 1.025 1.016-1.022 Urine protein assay by test strip, semi-quantitative 3+ NEGATIVE Urine glucose detection by automated test strip 3+ NEGATIVE Erythrocytes detection in urine sediment by light micr oscopy 1+ NEGATIVE Urine ketones detection by automated test strip 2+ NEGATIVE Urine nitrite detection by test strip NEGATIVE NEGATIVE Urine total bilirubin detection by test strip 1+ NEGATIVE Urine urobilinogen measurement by automated test strip (mass/volume) 1 mg/dL NORMAL Urine leukocyte esterase detection by dipstick 2+ NEGATIVE Automated urine sediment erythrocyte cou nt by microscopy (number/high power field) [HPF] NRG Automated urine sediment leukocyte count by microscopy (number/high power field) [HPF] NRG Bacteria detection in urine sediment by light microsco py MODERATE NRG Squamous epithelial cells detection in u rine sediment by light microscopy 25-50 NRG Crystals detection in urine sediment by light microsco py NONE NRG Casts detection in urine sediment by light microscopy NONE NRG Mucus detection in urine sediment by light microscopy LARGE NRG Complete urinalysis with reflex to culture YES NRG Comprehensive metabolic panel - 06/13/16 18:11 Serum or plasma sodium measurement (moles/volume) 135 mmol/L 135-145 Serum or plasma potassium measurement (moles/volume) 3.9 mmol/L 3.6-5.0 Serum or plasma chloride measurement (moles/volume) 101 mmol/L 98-107 Carbon dioxide 21 mmol/L 21-32 Serum or plasma anion gap determination (moles/volume) 13 mmol/L 5-14 Serum or plasma urea nitrogen measurement (mass/volume ) 7 mg/dL 7-18 Serum or plasma creatinine measurement (mass/volume) 0.80 mg/dL 0.60-1.30 Serum or plasma urea nitrogen/creatinine mass ratio 9 NRG Serum or plasma creatinine measurement w ith calculation of estimated glomerular filtration rate > NRG Serum or plasma glucose measurement (mass/volume) 246 mg/dL 70-105 Serum or plasma calcium measurement (mass/volume) 9.1 mg/dL 8.5-10.1 Serum or plasma total bilirubin measurement (mass/volu me) 0.5 mg/dL 0.1-1.0 Serum or plasma alkaline phosphatase dora surement (enzymatic activity/volume) 86 U/L 40-136 Serum or plasma aspartate aminotransfera se measurement (enzymatic activity/volume) 29 U/L 5-34 Serum or plasma alanine aminotransferase measurement (enzymatic activity/volume) 32 U/L 0-55 Serum or plasma protein measurement (mass/volume) 7.9 g/dL 6.4-8.2 Serum or plasma albumin measurement (mass/volume) 4.0 g/dL 3.2-4.5 Bacterial urine culture - 06/13/16 18:11 URINE CULTURE RESULTS SUGGEST RECOLLECTION NRG Bacterial blood culture - 06/13/16 18:11 Bacterial blood culture NG NRG Blood lactic acid measurement (moles/vol ume) - 06/13/16 18:46 Blood lactic acid measurement (moles/volume) 1.3 m mol/L 0.5- 2.0 Bacterial blood culture - 06/13/16 18:46 Bacterial blood culture NG NRG Methicillin resistant Staphylococcus aur eus (MRSA) screening culture - 06/13/16 23:10 Methicillin resistant Staphylococcus aureus (MRSA) scr eening culture NEG NRG Complete blood count (CBC) with automate d white blood cell (WBC) differential - 06/14/16 05:00 Blood leukocytes automated count (number/volume) 12.8 10*3/uL 4.3-11.0 Blood erythrocytes automated count (number/volume) 5.45 10*6/uL 4.35-5.85 Venous blood hemoglobin measurement (mass/volume) 15.2 g/dL 11.5-16.0 Blood hematocrit (volume fraction) 43 % 35-52 Automated erythrocyte mean corpuscular volume 79 [ foz_us] 80-99 Automated erythrocyte mean corpuscular h emoglobin (mass per erythrocyte) 28 pg 25-34 Automated erythrocyte mean corpuscular h emoglobin concentration measurement (mass/volume) 35 g/dL 32-36 Automated erythrocyte distribution width ratio 13. 5 % 10.0- 14.5 Automated blood platelet count (count/volume) 300 10*3/uL 130-400 Automated blood platelet mean volume measurement 10.3 [foz_us] 7.4-10.4 Automated blood neutrophils/100 leukocytes 59 % 42-75 Automated blood lymphocytes/100 leukocytes 32 % 12-44 Blood monocytes/100 leukocytes 5 % 0-12 Automated blood eosinophils/100 leukocytes 3 % 0-10 Automated blood basophils/100 leukocytes 0 % 0-10 Blood neutrophils automated count (number/volume) 7.5 10*3 1.8-7.8 Blood lymphocytes automated count (number/volume) 4.2 10*3 1.0-4.0 Blood monocytes automated count (number/volume) 0. 7 10*3 0.0-1.0 Automated eosinophil count 0.4 10*3/uL 0 .0-0.3 Automated blood basophil count (count/volume) 0.0 10*3/uL 0.0-0.1 Capillary blood glucose measurement by g lucometer (mass/volume) - 06/14/16 05:46 Capillary blood glucose measurement by glucometer (mas s/volume) 236 mg/dL 70-110 Bacteria identification in isolate by an aerobe culture - 06/14/16 09:40 Bacteria identification in isolate by anaerobe culture TNP NRG Gram stain microscopy - 06/14/16 09:40 Gram stain microscopy TNP NRG Bacteria identification in wound by cult ure - 06/14/16 09:40 Bacteria identification in wound by culture TNP NRG Bacteria identification in isolate by an aerobe culture - 06/14/16 11:00 Bacteria identification in isolate by anaerobe culture NOANA NRG Gram stain microscopy - 06/14/16 11:00 GRAM STAIN RESULT FEW GRAM POSITIVE COCCI NRG Bacteria identification in wound by cult ure - 06/14/16 11:00 Bacteria identification in wound by culture [id number] NRG FREE TEXT EXTERNAL SENSITIVITY REPORTED AT 1613, NRG QUANTITY OF GROWTH Moderate Growth NRG MRSA AGAR MRSA isolated (Screening test for MRSA is positive) NRG CALL POSITIVES (F1 HELP) CALLED TO LUIZ/KASI JI AT 1616, 06-15-16/KD NRG Bacterial susceptibility panel - 7 11:00 Oxacillin susceptibility test by minimum inhibitory co ncentration >= NRG Gentamicin susceptibility test by minimum inhibitory c oncentration <= NRG Clindamycin susceptibility test by minimum inhibitory concentration <= NRG Erythromycin susceptibility test by minimum inhibitory concentration >= NRG Trimethoprim/sulfamethoxazole susceptibi lity test by minimum inhibitoryconcentration <= NRG Vancomycin susceptibility test by minimum inhibitory c oncentration <= NRG Levofloxacin susceptibility test by minimum inhibitory concentration 4 NRG Rifampin susceptibility test by minimum inhibitory con centration <= NRG Tetracycline susceptibility test by minimum inhibitory concentration <= NRG Ciprofloxacin susceptibility test by minimum inhibitor y concentration R NRG Capillary blood glucose measurement by g lucometer (mass/volume) - 06/14/16 11:59 Capillary blood glucose measurement by glucometer (mas s/volume) 211 mg/dL 70-110 Capillary blood glucose measurement by g lucometer (mass/volume) - 06/14/16 16:44 Capillary blood glucose measurement by glucometer (mas s/volume) 247 mg/dL 70-110 Vancomycin trough - 06/14/16 20:16 Vancomycin trough 9.4 ug/mL 10.0-20.0 Comprehensive metabolic panel - 06/14/16 20:16 Serum or plasma sodium measurement (moles/volume) 135 mmol/L 135-145 Serum or plasma potassium measurement (moles/volume) 3.7 mmol/L 3.6-5.0 Serum or plasma chloride measurement (moles/volume) 106 mmol/L 98-107 Carbon dioxide 21 mmol/L 21-32 Serum or plasma anion gap determination (moles/volume) 8 mmol/L 5-14 Serum or plasma urea nitrogen measurement (mass/volume ) 9 mg/dL 7-18 Serum or plasma creatinine measurement (mass/volume) 0.71 mg/dL 0.60-1.30 Serum or plasma urea nitrogen/creatinine mass ratio 13 NRG Serum or plasma creatinine measurement w ith calculation of estimated glomerular filtration rate > NRG Serum or plasma glucose measurement (mass/volume) 221 mg/dL 70-105 Serum or plasma calcium measurement (mass/volume) 8.3 mg/dL 8.5-10.1 Serum or plasma total bilirubin measurement (mass/volu me) 0.4 mg/dL 0.1-1.0 Serum or plasma alkaline phosphatase dora surement (enzymatic activity/volume) 71 U/L 40-136 Serum or plasma aspartate aminotransfera se measurement (enzymatic activity/volume) 22 U/L 5-34 Serum or plasma alanine aminotransferase measurement (enzymatic activity/volume) 28 U/L 0-55 Serum or plasma protein measurement (mass/volume) 6.6 g/dL 6.4-8.2 Serum or plasma albumin measurement (mass/volume) 3.3 g/dL 3.2-4.5 Capillary blood glucose measurement by g lucometer (mass/volume) - 06/14/16 21:34 Capillary blood glucose measurement by glucometer (mas s/volume) 245 mg/dL 70-110 Complete blood count (CBC) with automate d white blood cell (WBC) differential - 06/15/16 04:45 Blood leukocytes automated count (number/volume) 9.6 10*3/uL 4.3-11.0 Blood erythrocytes automated count (number/volume) 4.69 10*6/uL 4.35-5.85 Venous blood hemoglobin measurement (mass/volume) 13.0 g/dL 11.5-16.0 Blood hematocrit (volume fraction) 38 % 35-52 Automated erythrocyte mean corpuscular volume 80 [ foz_us] 80-99 Automated erythrocyte mean corpuscular h emoglobin (mass per erythrocyte) 28 pg 25-34 Automated erythrocyte mean corpuscular h emoglobin concentration measurement (mass/volume) 35 g/dL 32-36 Automated erythrocyte distribution width ratio 13. 3 % 10.0- 14.5 Automated blood platelet count (count/volume) 323 10*3/uL 130-400 Automated blood platelet mean volume measurement 10.1 [foz_us] 7.4-10.4 Automated blood neutrophils/100 leukocytes 56 % 42-75 Automated blood lymphocytes/100 leukocytes 35 % 12-44 Blood monocytes/100 leukocytes 5 % 0-12 Automated blood eosinophils/100 leukocytes 5 % 0-10 Automated blood basophils/100 leukocytes 0 % 0-10 Blood neutrophils automated count (number/volume) 5.4 10*3 1.8-7.8 Blood lymphocytes automated count (number/volume) 3.3 10*3 1.0-4.0 Blood monocytes automated count (number/volume) 0. 4 10*3 0.0-1.0 Automated eosinophil count 0.4 10*3/uL 0 .0-0.3 Automated blood basophil count (count/volume) 0.0 10*3/uL 0.0-0.1 Whole blood basic metabolic panel - 05/28 01/11 04:45 Serum or plasma sodium measurement (moles/volume) 136 mmol/L 135-145 Serum or plasma potassium measurement (moles/volume) 4.5 mmol/L 3.6-5.0 Serum or plasma chloride measurement (moles/volume) 110 mmol/L 98-107 Carbon dioxide 18 mmol/L 21-32 Serum or plasma anion gap determination (moles/volume) 8 mmol/L 5-14 Serum or plasma urea nitrogen measurement (mass/volume ) 9 mg/dL 7-18 Serum or plasma creatinine measurement (mass/volume) 0.69 mg/dL 0.60-1.30 Serum or plasma urea nitrogen/creatinine mass ratio 13 NRG Serum or plasma creatinine measurement w ith calculation of estimated glomerular filtration rate > NRG Serum or plasma glucose measurement (mass/volume) 181 mg/dL 70-105 Serum or plasma calcium measurement (mass/volume) 8.1 mg/dL 8.5-10.1 THYROID STIMULATING HORMONE - 06/15/16 0 4:45 THYROID STIMULATING HORMONE 4.21 u[iU]/mL 0.35-4.94 Hemoglobin A1c - 06/15/16 04:45 Hemoglobin A1c 11.7 % 4.5-6.2 Capillary blood glucose measurement by g lucometer (mass/volume) - 06/15/16 10:49 Capillary blood glucose measurement by glucometer (mas s/volume) 148 mg/dL 70-110 Capillary blood glucose measurement by g lucometer (mass/volume) - 06/15/16 15:58 Capillary blood glucose measurement by glucometer (mas s/volume) 152 mg/dL 70-110 Capillary blood glucose measurement by g lucometer (mass/volume) - 06/15/16 20:56 Capillary blood glucose measurement by glucometer (mas s/volume) 207 mg/dL 70-110 Complete blood count (CBC) with automate d white blood cell (WBC) differential - 06/16/16 04:05 Blood leukocytes automated count (number/volume) 7.4 10*3/uL 4.3-11.0 Blood erythrocytes automated count (number/volume) 4.83 10*6/uL 4.35-5.85 Venous blood hemoglobin measurement (mass/volume) 13.4 g/dL 11.5-16.0 Blood hematocrit (volume fraction) 38 % 35-52 Automated erythrocyte mean corpuscular volume 80 [ foz_us] 80-99 Automated erythrocyte mean corpuscular h emoglobin (mass per erythrocyte) 28 pg 25-34 Automated erythrocyte mean corpuscular h emoglobin concentration measurement (mass/volume) 35 g/dL 32-36 Automated erythrocyte distribution width ratio 13. 1 % 10.0- 14.5 Automated blood platelet count (count/volume) 312 10*3/uL 130-400 Automated blood platelet mean volume measurement 10.1 [foz_us] 7.4-10.4 Automated blood neutrophils/100 leukocytes 49 % 42-75 Automated blood lymphocytes/100 leukocytes 41 % 12-44 Blood monocytes/100 leukocytes 5 % 0-12 Automated blood eosinophils/100 leukocytes 5 % 0-10 Automated blood basophils/100 leukocytes 0 % 0-10 Blood neutrophils automated count (number/volume) 3.6 10*3 1.8-7.8 Blood lymphocytes automated count (number/volume) 3.0 10*3 1.0-4.0 Blood monocytes automated count (number/volume) 0. 4 10*3 0.0-1.0 Automated eosinophil count 0.4 10*3/uL 0 .0-0.3 Automated blood basophil count (count/volume) 0.0 10*3/uL 0.0-0.1 Whole blood basic metabolic panel - 05/29 04:05 Serum or plasma sodium measurement (moles/volume) 139 mmol/L 135-145 Serum or plasma potassium measurement (moles/volume) 3.6 mmol/L 3.6-5.0 Serum or plasma chloride measurement (moles/volume) 111 mmol/L 98-107 Carbon dioxide 17 mmol/L 21-32 Serum or plasma anion gap determination (moles/volume) 11 mmol/L 5-14 Serum or plasma urea nitrogen measurement (mass/volume ) 6 mg/dL 7-18 Serum or plasma creatinine measurement (mass/volume) 0.64 mg/dL 0.60-1.30 Serum or plasma urea nitrogen/creatinine mass ratio 9 NRG Serum or plasma creatinine measurement w ith calculation of estimated glomerular filtration rate > NRG Serum or plasma glucose measurement (mass/volume) 136 mg/dL 70-105 Serum or plasma calcium measurement (mass/volume) 8.1 mg/dL 8.5-10.1 Capillary blood glucose measurement by g lucometer (mass/volume) - 06/16/16 11:51 Capillary blood glucose measurement by glucometer (mas s/volume) 149 mg/dL 70-110 Microalb/Creat Ratio, Randm Ur - 7 10:30 Creatinine, Urine 257.8 mg/dL Not Estab. Microalbumin, Urine 66.8 ug/mL Not Estab . Microalb/Creat Ratio 25.9 mg/g creat 0.0 -30.0 Urine Culture, Routine - 07/10/16 10:30 Urine Culture, Routine Note Complete urinalysis with reflex to cultu re - 12/31/16 22:58 Urine color determination YELLOW NRG Urine clarity determination CLEAR NR G Urine pH measurement by test strip 5 5-9 Specific gravity of urine by test strip 1.020 1.016-1.022 Urine protein assay by test strip, semi-quantitative 1+ NEGATIVE Urine glucose detection by automated test strip 4+ NEGATIVE Erythrocytes detection in urine sediment by light micr oscopy 1+ NEGATIVE Urine ketones detection by automated test strip 1+ NEGATIVE Urine nitrite detection by test strip NEGATIVE NEGATIVE Urine total bilirubin detection by test strip NEGA TIVE NEGATIVE Urine urobilinogen measurement by automated test strip (mass/volume) NORMAL NORMAL Urine leukocyte esterase detection by dipstick 2+ NEGATIVE Automated urine sediment erythrocyte cou nt by microscopy (number/high power field) RARE NRG Automated urine sediment leukocyte count by microscopy (number/high power field) [HPF] NRG Bacteria detection in urine sediment by light microsco py FEW NRG Squamous epithelial cells detection in u rine sediment by light microscopy 2-5 NRG Crystals detection in urine sediment by light microsco py NONE NRG Casts detection in urine sediment by light microscopy NONE NRG Mucus detection in urine sediment by light microscopy NEGATIVE NRG Complete urinalysis with reflex to culture YES NRG Bacterial urine culture - 12/31/16 22:58 URINE CULTURE RESULTS <10,000/ML NRG Complete blood count (CBC) with automate d white blood cell (WBC) differential - 01/01/17 00:09 Blood leukocytes automated count (number/volume) 11.8 10*3/uL 4.3-11.0 Blood erythrocytes automated count (number/volume) 5.26 10*6/uL 4.35-5.85 Venous blood hemoglobin measurement (mass/volume) 14.6 g/dL 11.5-16.0 Blood hematocrit (volume fraction) 42 % 35-52 Automated erythrocyte mean corpuscular volume 79 [ foz_us] 80-99 Automated erythrocyte mean corpuscular h emoglobin (mass per erythrocyte) 28 pg 25-34 Automated erythrocyte mean corpuscular h emoglobin concentration measurement (mass/volume) 35 g/dL 32-36 Automated erythrocyte distribution width ratio 13. 4 % 10.0- 14.5 Automated blood platelet count (count/volume) 326 10*3/uL 130-400 Automated blood platelet mean volume measurement 9.9 [foz_us] 7.4-10.4 Automated blood neutrophils/100 leukocytes 58 % 42-75 Automated blood lymphocytes/100 leukocytes 32 % 12-44 Blood monocytes/100 leukocytes 5 % 0-12 Automated blood eosinophils/100 leukocytes 4 % 0-10 Automated blood basophils/100 leukocytes 1 % 0-10 Blood neutrophils automated count (number/volume) 6.9 10*3 1.8-7.8 Blood lymphocytes automated count (number/volume) 3.7 10*3 1.0-4.0 Blood monocytes automated count (number/volume) 0. 6 10*3 0.0-1.0 Automated eosinophil count 0.5 10*3/uL 0 .0-0.3 Automated blood basophil count (count/volume) 0.1 10*3/uL 0.0-0.1 Comprehensive metabolic panel - 01/01/17 00:09 Serum or plasma sodium measurement (moles/volume) 136 mmol/L 135-145 Serum or plasma potassium measurement (moles/volume) 4.1 mmol/L 3.6-5.0 Serum or plasma chloride measurement (moles/volume) 105 mmol/L 98-107 Carbon dioxide 18 mmol/L 21-32 Serum or plasma anion gap determination (moles/volume) 13 mmol/L 5-14 Serum or plasma urea nitrogen measurement (mass/volume ) 11 mg/dL 7-18 Serum or plasma creatinine measurement (mass/volume) 0.82 mg/dL 0.60-1.30 Serum or plasma urea nitrogen/creatinine mass ratio 13 NRG Serum or plasma creatinine measurement w ith calculation of estimated glomerular filtration rate > NRG Serum or plasma glucose measurement (mass/volume) 305 mg/dL 70-105 Serum or plasma calcium measurement (mass/volume) 9.5 mg/dL 8.5-10.1 Serum or plasma total bilirubin measurement (mass/volu me) 0.4 mg/dL 0.1-1.0 Serum or plasma alkaline phosphatase dora surement (enzymatic activity/volume) 75 U/L 40-136 Serum or plasma aspartate aminotransfera se measurement (enzymatic activity/volume) 28 U/L 5-34 Serum or plasma alanine aminotransferase measurement (enzymatic activity/volume) 34 U/L 0-55 Serum or plasma protein measurement (mass/volume) 7.4 g/dL 6.4-8.2 Serum or plasma albumin measurement (mass/volume) 4.0 g/dL 3.2-4.5 Bacteria identification in genital speci men by aerobe culture - 01/01/17 00:13 FREE TEXT EXTERNAL PLUS NORMAL ROLY NR G QUANTITY OF GROWTH Moderate Growth NRG Bacteria identification in genital specimen by aerobe culture [id number] NRG Microscopic examination by wet preparati on - 01/01/17 00:13 WET PREP RESULTS 0030 BY CN. NRG Neisseria gonorrhoeae DNA detection by p robe and signal amplification method - 01/01/17 00:13 Gonorrhea amp DNA-urine Not Detected No t Detected Chlamydia trachomatis DNA detection by p robe and signal amplification method - 01/01/17 00:13 Chlamydia trachomatis DNA detection by p robe and target amplification method Not Detected Not Detected Complete urinalysis with reflex to cultu re - 02/20/17 20:20 Urine color determination YELLOW NRG Urine clarity determination CLEAR NR G Urine pH measurement by test strip 5 5-9 Specific gravity of urine by test strip 1.020 1.016-1.022 Urine protein assay by test strip, semi-quantitative 1+ NEGATIVE Urine glucose detection by automated test strip 4+ NEGATIVE Erythrocytes detection in urine sediment by light micr oscopy 3+ NEGATIVE Urine ketones detection by automated test strip 2+ NEGATIVE Urine nitrite detection by test strip NEGATIVE NEGATIVE Urine total bilirubin detection by test strip NEGA TIVE NEGATIVE Urine urobilinogen measurement by automated test strip (mass/volume) NORMAL NORMAL Urine leukocyte esterase detection by dipstick NEG ATIVE NEGATIVE Automated urine sediment erythrocyte cou nt by microscopy (number/high power field) [HPF] NRG Automated urine sediment leukocyte count by microscopy (number/high power field) NONE NRG Bacteria detection in urine sediment by light microsco py TRACE NRG Squamous epithelial cells detection in u rine sediment by light microscopy 5-10 NRG Crystals detection in urine sediment by light microsco py NONE NRG Casts detection in urine sediment by light microscopy NONE NRG Mucus detection in urine sediment by light microscopy NEGATIVE NRG Complete urinalysis with reflex to culture NO NRG Complete blood count (CBC) with automate d white blood cell (WBC) differential - 02/20/17 20:39 Blood leukocytes automated count (number/volume) 11.4 10*3/uL 4.3-11.0 Blood erythrocytes automated count (number/volume) 4.67 10*6/uL 4.35-5.85 Venous blood hemoglobin measurement (mass/volume) 13.3 g/dL 11.5-16.0 Blood hematocrit (volume fraction) 37 % 35-52 Automated erythrocyte mean corpuscular volume 79 [ foz_us] 80-99 Automated erythrocyte mean corpuscular h emoglobin (mass per erythrocyte) 29 pg 25-34 Automated erythrocyte mean corpuscular h emoglobin concentration measurement (mass/volume) 36 g/dL 32-36 Automated erythrocyte distribution width ratio 13. 5 % 10.0- 14.5 Automated blood platelet count (count/volume) 304 10*3/uL 130-400 Automated blood platelet mean volume measurement 9.5 [foz_us] 7.4-10.4 Automated blood neutrophils/100 leukocytes 63 % 42-75 Automated blood lymphocytes/100 leukocytes 27 % 12-44 Blood monocytes/100 leukocytes 5 % 0-12 Automated blood eosinophils/100 leukocytes 4 % 0-10 Automated blood basophils/100 leukocytes 0 % 0-10 Blood neutrophils automated count (number/volume) 7.2 10*3 1.8-7.8 Blood lymphocytes automated count (number/volume) 3.1 10*3 1.0-4.0 Blood monocytes automated count (number/volume) 0. 6 10*3 0.0-1.0 Automated eosinophil count 0.5 10*3/uL 0 .0-0.3 Automated blood basophil count (count/volume) 0.0 10*3/uL 0.0-0.1 Serum or plasma choriogonadotropin measu rement (units/volume) - 02/20/17 20:39 Serum or plasma choriogonadotropin measurement (units/ volume) 35079 m[iU]/mL <5 Methicillin resistant Staphylococcus aur eus (MRSA) screening culture - 03/03/17 13:47 Methicillin resistant Staphylococcus aureus (MRSA) scr eening culture NEG NR Blood type T Indirect antibody screen pa flor - 03/03/17 13:57 ABO+Rh group AP NR Transfusion band number [id number] NR Blood group antibody screen NEGATIVE NR Comprehensive metabolic panel - 03/03/17 14:43 Serum or plasma sodium measurement (moles/volume) 138 mmol/L 135-145 Serum or plasma potassium measurement (moles/volume) 3.7 mmol/L 3.6-5.0 Serum or plasma chloride measurement (moles/volume) 109 mmol/L 98-107 Carbon dioxide 16 mmol/L 21-32 Serum or plasma anion gap determination (moles/volume) 13 mmol/L 5-14 Serum or plasma urea nitrogen measurement (mass/volume ) 7 mg/dL 7-18 Serum or plasma creatinine measurement (mass/volume) 0.60 mg/dL 0.60-1.30 Serum or plasma urea nitrogen/creatinine mass ratio 12 NRG Serum or plasma creatinine measurement w ith calculation of estimated glomerular filtration rate > NRG Serum or plasma glucose measurement (mass/volume) 164 mg/dL 70-105 Serum or plasma calcium measurement (mass/volume) 8.4 mg/dL 8.5-10.1 Serum or plasma total bilirubin measurement (mass/volu me) 0.4 mg/dL 0.1-1.0 Serum or plasma alkaline phosphatase dora surement (enzymatic activity/volume) 50 U/L 40-136 Serum or plasma aspartate aminotransfera se measurement (enzymatic activity/volume) 21 U/L 5-34 Serum or plasma alanine aminotransferase measurement (enzymatic activity/volume) 19 U/L 0-55 Serum or plasma protein measurement (mass/volume) 6.9 g/dL 6.4-8.2 Serum or plasma albumin measurement (mass/volume) 3.7 g/dL 3.2-4.5 Complete urinalysis with reflex to cultu re - 03/03/17 17:15 Urine color determination YELLOW NRG Urine clarity determination CLEAR NR G Urine pH measurement by test strip 6 5-9 Specific gravity of urine by test strip 1.025 1.016-1.022 Urine protein assay by test strip, semi-quantitative 2+ NEGATIVE Urine glucose detection by automated test strip 2+ NEGATIVE Erythrocytes detection in urine sediment by light micr oscopy 5+ NEGATIVE Urine ketones detection by automated test strip 3+ NEGATIVE Urine nitrite detection by test strip NEGATIVE NEGATIVE Urine total bilirubin detection by test strip NEGA TIVE NEGATIVE Urine urobilinogen measurement by automated test strip (mass/volume) NORMAL NORMAL Urine leukocyte esterase detection by dipstick 1+ NEGATIVE Automated urine sediment erythrocyte cou nt by microscopy (number/high power field) [HPF] NRG Automated urine sediment leukocyte count by microscopy (number/high power field) [HPF] NRG Bacteria detection in urine sediment by light microsco py FEW NRG Squamous epithelial cells detection in u rine sediment by light microscopy 2-5 NRG Crystals detection in urine sediment by light microsco py NONE NRG Casts detection in urine sediment by light microscopy NONE NRG Mucus detection in urine sediment by light microscopy LARGE NRG Complete urinalysis with reflex to culture NO NRG Capillary blood glucose measurement by g lucometer (mass/volume) - 03/03/17 18:20 Capillary blood glucose measurement by glucometer (mas s/volume) 109 mg/dL 70-110 Capillary blood glucose measurement by g lucometer (mass/volume) - 03/04/17 00:25 Capillary blood glucose measurement by glucometer (mas s/volume) 179 mg/dL 70-110 Capillary blood glucose measurement by g lucometer (mass/volume) - 03/04/17 03:38 Capillary blood glucose measurement by glucometer (mas s/volume) 123 mg/dL 70-110 LIPID PANEL - 11/09/17 14:53 CHOLESTEROL, TOTAL 181 mg/dL <200 HDL CHOLESTEROL 26 mg/dL >50 TRIGLYCERIDES 508 mg/dL <150 LDL-CHOLESTEROL mg/dL (calc) NRG CHOL/HDLC RATIO 7.0 (calc) <5.0 NON HDL CHOLESTEROL 155 mg/dL (calc) <13 0 CMP - 11/09/17 14:53 GLUCOSE 187 mg/dL 65-99 UREA NITROGEN (BUN) 9 mg/dL 7-25 CREATININE 0.64 mg/dL 0.50-1.10 eGFR NON-AFR. [place] 114 mL/min/1.73m2 > OR = 60 eGFR 132 mL/min/1.73m2 > OR = 60 BUN/CREATININE RATIO NOT APPLICABLE (calc) 6-22 SODIUM 137 mmol/L 135-146 POTASSIUM 4.3 mmol/L 3.5-5.3 CHLORIDE 105 mmol/L 98-110 CARBON DIOXIDE 21 mmol/L 20-31 CALCIUM 9.0 mg/dL 8.6-10.2 PROTEIN, TOTAL 7.0 g/dL 6.1-8.1 ALBUMIN 4.1 g/dL 3.6-5.1 GLOBULIN 2.9 g/dL (calc) 1.9-3.7 ALBUMIN/GLOBULIN RATIO 1.4 (calc) 1.0-2. 5 BILIRUBIN, TOTAL 0.3 mg/dL 0.2-1.2 ALKALINE PHOSPHATASE 62 U/L 33-115 AST 25 U/L 10-30 ALT 32 U/L 6-29 TSH - 11/09/17 14:53 TSH 3.73 mIU/L NRG Complete urinalysis with reflex to cultu re - 01/13/18 10:59 Urine color determination YELLOW NRG Urine clarity determination CLEAR NR G Urine pH measurement by test strip 5 5-9 Specific gravity of urine by test strip 1.020 1.016-1.022 Urine protein assay by test strip, semi-quantitative 1+ NEGATIVE Urine glucose detection by automated test strip 4+ NEGATIVE Erythrocytes detection in urine sediment by light micr oscopy NEGATIVE NEGATIVE Urine ketones detection by automated test strip 3+ NEGATIVE Urine nitrite detection by test strip NEGATIVE NEGATIVE Urine total bilirubin detection by test strip NEGA TIVE NEGATIVE Urine urobilinogen measurement by automated test strip (mass/volume) NORMAL NORMAL Urine leukocyte esterase detection by dipstick 1+ NEGATIVE Automated urine sediment erythrocyte cou nt by microscopy (number/high power field) NONE NRG Automated urine sediment leukocyte count by microscopy (number/high power field) [HPF] NRG Bacteria detection in urine sediment by light microsco py TRACE NRG Squamous epithelial cells detection in u rine sediment by light microscopy 2-5 NRG Crystals detection in urine sediment by light microsco py NONE NRG Casts detection in urine sediment by light microscopy NONE NRG Mucus detection in urine sediment by light microscopy NEGATIVE NRG Complete urinalysis with reflex to culture NO NRG Methicillin resistant Staphylococcus aur eus (MRSA) screening culture - 01/13/18 10:59 Methicillin resistant Staphylococcus aureus (MRSA) scr eening culture NEG NRG Capillary blood glucose measurement by g lucometer (mass/volume) - 01/13/18 11:11 Capillary blood glucose measurement by glucometer (mas s/volume) 329 mg/dL 70-110 Complete blood count (CBC) with automate d white blood cell (WBC) differential - 01/13/18 11:15 Blood leukocytes automated count (number/volume) 10.0 10*3/uL 4.3-11.0 Blood erythrocytes automated count (number/volume) 5.26 10*6/uL 4.35-5.85 Venous blood hemoglobin measurement (mass/volume) 14.9 g/dL 11.5-16.0 Blood hematocrit (volume fraction) 41 % 35-52 Automated erythrocyte mean corpuscular volume 79 [ foz_us] 80-99 Automated erythrocyte mean corpuscular h emoglobin (mass per erythrocyte) 28 pg 25-34 Automated erythrocyte mean corpuscular h emoglobin concentration measurement (mass/volume) 36 g/dL 32-36 Automated erythrocyte distribution width ratio 14. 5 % 10.0- 14.5 Automated blood platelet count (count/volume) 347 10*3/uL 130-400 Automated blood platelet mean volume measurement 9.8 [foz_us] 7.4-10.4 Automated blood neutrophils/100 leukocytes 62 % 42-75 Automated blood lymphocytes/100 leukocytes 27 % 12-44 Blood monocytes/100 leukocytes 5 % 0-12 Automated blood eosinophils/100 leukocytes 6 % 0-10 Automated blood basophils/100 leukocytes 0 % 0-10 Blood neutrophils automated count (number/volume) 6.2 10*3 1.8-7.8 Blood lymphocytes automated count (number/volume) 2.7 10*3 1.0-4.0 Blood monocytes automated count (number/volume) 0. 5 10*3 0.0-1.0 Automated eosinophil count 0.6 10*3/uL 0 .0-0.3 Automated blood basophil count (count/volume) 0.0 10*3/uL 0.0-0.1 Blood type T Indirect antibody screen pa flor - 01/13/18 11:15 ABO+Rh group AP [facility] Transfusion band number [id number] [facility] Blood group antibody screen NEGATIVE NR G Capillary blood glucose measurement by g lucometer (mass/volume) - 01/13/18 12:16 Capillary blood glucose measurement by glucometer (mas s/volume) 316 mg/dL 70-110 Capillary blood glucose measurement by g lucometer (mass/volume) - 01/13/18 13:26 Capillary blood glucose measurement by glucometer (mas s/volume) 283 mg/dL 70-110 Capillary blood glucose measurement by g lucometer (mass/volume) - 01/13/18 14:58 Capillary blood glucose measurement by glucometer (mas s/volume) 265 mg/dL 70-110 Capillary blood glucose measurement by g lucometer (mass/volume) - 01/13/18 22:07 Capillary blood glucose measurement by glucometer (mas s/volume) 153 mg/dL 70-110 Capillary blood glucose measurement by g lucometer (mass/volume) - 01/14/18 06:21 Capillary blood glucose measurement by glucometer (mas s/volume) 169 mg/dL 70-110 Coronavirus SARS-CoV-2 SO 2019 - 0 08:42 Coronavirus Ab [Units/volume] in Serum Negative Negative Capillary blood glucose measurement by g lucometer (mass/volume) - 10/07/19 11:54 Capillary blood glucose measurement by glucometer (mas s/volume) 108 mg/dL 70-110 Complete blood count (CBC) with automate d white blood cell (WBC) differential - 10/07/19 12:03 Blood leukocytes automated count (number/volume) 13.6 10*3/uL 4.3-11.0 Blood erythrocytes automated count (number/volume) 4.19 10*6/uL 4.35-5.85 Venous blood hemoglobin measurement (mass/volume) 11.0 g/dL 11.5-16.0 Blood hematocrit (volume fraction) 32 % 35-52 Automated erythrocyte mean corpuscular volume 76 [ foz_us] 80-99 Automated erythrocyte mean corpuscular h emoglobin (mass per erythrocyte) 26 pg 25-34 Automated erythrocyte mean corpuscular h emoglobin concentration measurement (mass/volume) 35 g/dL 32-36 Automated erythrocyte distribution width ratio 15. 9 % 10.0- 14.5 Automated blood platelet count (count/volume) 455 10*3/uL 130-400 Automated blood platelet mean volume measurement 9.0 [foz_us] 7.4-10.4 Automated blood neutrophils/100 leukocytes 70 % 42-75 Automated blood lymphocytes/100 leukocytes 22 % 12-44 Blood monocytes/100 leukocytes 6 % 0-12 Automated blood eosinophils/100 leukocytes 2 % 0-10 Automated blood basophils/100 leukocytes 0 % 0-10 Blood neutrophils automated count (number/volume) 9.6 10*3 1.8-7.8 Blood lymphocytes automated count (number/volume) 3.0 10*3 1.0-4.0 Blood monocytes automated count (number/volume) 0. 8 10*3 0.0-1.0 Automated eosinophil count 0.3 10*3/uL 0 .0-0.3 Automated blood basophil count (count/volume) 0.0 10*3/uL 0.0-0.1 Encounters ACCT No. Visit Date/Time Discharge Status Pt. Type Provider Facility Loc./Unit Complaint [id number] 07/12/2016 00:07:00 Document Registration [id number] 07/19/2018 10:40:00 07/19/2018 23:59: 59 CLS Outpatient DAISY ROSEN APRN [facility] [id number] 11/09/2017 14:20:00 Document Registration [id number] 10/03/2019 05:55:00 020 15:12:00 DIS Outpatient GEO DACOSTA DO Via [facility] PREOP PREVIOUS [id number] 05/17/2019 11:45:00 020 23:59:59 CLS Outpatient GEO DACOSTA DO [facility] RAD BLEEDING IN EARLY PREGN NILO [id number] 09/18/2018 14:46:00 019 23:59:59 CLS Outpatient GEO DACOSTA DO [facility] LAB ENCOUNTER FOR OTHER SPE CIFIED SCREENING [id number] 01/13/2018 10:50:00 018 10:45:00 DIS Outpatient GEO DACOSTA DO [facility] SDC MISSED AB [id number] 01/12/2018 06:08:00 018 09:53:00 DIS Outpatient GEO DACOSTA DO [facility] PREOP MISSED AB [id number] 03/03/2017 13:24:00 017 11:40:00 DIS Outpatient GEO DACOSTA DO [facility] SDC VAGINAL HEMORRHAGE,MISS ED AB/INCOMPLETE [id number] 03/03/2017 12:47:00 017 23:59:59 CLS Outpatient GEO DACOSTA DO [facility] RAD O02.1 MISSED [id number] 02/20/2017 19:17:00 017 22:02:00 DIS Emergency KIMBERLI FELTON APRN [facility] ER 9 WKS PREG/VAG BLEEDING /CRAMPING [id number] 12/31/2016 21:53:00 017 00:58:00 DIS Emergency TIFFANY KNAPP [facility] ER VAGINAL BURNING [id number] 06/13/2016 19:47:00 017 16:16:00 DIS Inpatient MARY NUÑEZ MD [facility] 4TH PERIRECTAL ABSCESS; POO RLY CONTROLLED DM [id number] 04/13/2016 16:58:00 016 18:10:00 DIS Emergency TIFFANY KNAPP [facility] ER WOUND CHECK [id number] 04/11/2016 11:44:00 13:11:00 DIS Emergency KIMBERLI FELTON APRN [facility] ER ABSCESS/BOIL VAG AREA [id number] 02/01/2016 08:58:00 23:59:59 CLS Outpatient DAISY ROSEN [facility] RAD DISCHARGE OF BREAST [id number] 10/21/2015 22:10:00 016 23:12:00 DIS Emergency TIFFANY KNAPP [facility] ER TOOTH PAIN [id number] 06/18/2015 13:36:00 016 16:21:00 DIS Emergency KIMBERLI FELTON APRN [facility] ER HEAVY MENSTRAL BLEEDING [id number] 05/15/2014 21:25:00 015 18:05:00 DIS Inpatient MARY NUÑEZ MD [facility] 4TH CELLULITIS MULTIPLE L ABIAL ABSCESSES [id number] 03/06/2014 16:51:00 014 17:36:00 DIS Emergency BRENDA SMITH MD [facility] ER ABCESS [id number] 02/11/2013 10:20:00 23:59:59 CLS Outpatient GEO DACOSTA DO [facility] RAD POST PARDOM BLEEDING [id number] 01/25/2013 08:00:00 15:00:00 DIS Inpatient GEO DACOSTA DO [facility] WS PREVIOUS SECTION;GESTATIONAL DIABETES B [id number] 01/18/2013 10:07:00 013 23:59:59 CLS Outpatient GEO DACOSTA DO [facility] PREOP PREVIOUS SECTI ON X3;GESTATION DIABETES B [id number] 11/29/2012 12:21:00 23:59:59 CLS Outpatient GEO DACOSTA DO [facility] RAD GESTATIONAL DM [id number] 11/01/2012 12:02:00 23:59:59 CLS Outpatient GEO DACOSTA DO [facility] RAD GESTATIONAL DIABETES [id number] 10/01/2012 15:32:00 23:59:59 CLS Outpatient GEO DACOSTA DO [facility] RAD SURVEY,, GEST DIABETES [id number] 10/07/2019 13:00:00 P EN Preadmit GEO DACOSTA DO P REVIOUS [id number] 06/03/2014 13:03:00 06/03/2014 23:59: 59 CLS Outpatient SAVANNAH HDEZ, MARY Hood [id number] 12/28/2013 13:32:00 12/28/2013 23:59: 59 CLS Outpatient DAISY ROSEN APRN [id number] 12/28/2013 13:32:00 12/28/2013 23:59: 59 CLS Outpatient DAISY ROSEN APRN [id number] 10/20/2013 11:18:00 10/20/2013 23:59: 59 CLS Outpatient DAISY ROSEN APRN [id number] 09/01/2013 11:17:00 09/01/2013 23:59: 59 CLS Outpatient DAISY ROSEN APRN [id number] 09/01/2013 11:17:00 09/01/2013 23:59: 59 CLS Outpatient KAVITHA TRINIDAD MD [id number] 08/04/2013 08:55:00 08/04/2013 23:59: 59 CLS Outpatient LUIS JIMENEZ APRN [id number] 06/11/2012 11:08:00 06/11/2012 23:59: 59 CLS Outpatient LAMBERTO STRAUSS DDS [id number] 06/02/2012 15:40:00 06/02/2012 23:59: 59 CLS Outpatient [id number] 05/13/2012 09:05:00 05/13/2012 23:59: 59 CLS Outpatient ARMAND REDDY DDS [id number] 04/23/2012 09:37:00 04/23/2012 23:59: 59 CLS Outpatient PEDRO MAN DO [id number] 04/15/2012 10:48:00 04/15/2012 23:59: 59 CLS Outpatient PEDRO MAN DO [id number] 2012 13:12:00 2012 23:59: 59 CLS Outpatient [id number] 01/29/2016 13:05:00 Document Registration
[2019-10-07 12:52] LABS: CLARITY,URINE SL CLOUDY; COLOR,URINE YELLOW; GLUCOSE, URINE (UA) NEGATIVE (NEGATIVE); KETONES,URINE 1+ (NEGATIVE); LEUKOCYTE ESTERASE ,URINE NEGATIVE (NEGATIVE); NITRITE,URINE NEGATIVE (NEGATIVE); PH,URINE 5.5 (5-9); PROTEIN,URINE TRACE (NEGATIVE)
[2019-10-07 13:08] LABS: BACTERIA,URINE TRACE /HPF; BILIRUBIN,URINE 1+ (NEGATIVE); URIC ACID CRYSTALS,URINE FEW /LPF
--- NOTE | 2019-10-07 13:09 | Progress Note-Pre Operative ---
Pre-Operative Progress Note H&P Reviewed The H&P was reviewed, patient examined and no changes noted. Date Seen by Provider: Oct 07, 2019 Time Seen by Provider: 13:00 Date H&P Reviewed: Oct 07, 2019 Time H&P Reviewed: 12:30 Pre-Operative Diagnosis: previous CS, type II DM in , anomaly, AMA, morbid obesity GEO DACOSTA DO Oct 07, 2019 13:08
[2019-10-07] MEDS ORDERED: OXYTOCIN PRE-MIX DRIP 1,000 ML IV ONE (13:22)
[2019-10-07] MEDS ORDERED: fentaNYL INJECTION 100 MCG/2 ML AMP ONE (13:23)
[2019-10-07] MEDS ORDERED: PHENYLEPHRINE 100 MCG/ML 10 ML (ANESTHESIA) SYR ONE (14:28)
--- NOTE | 2019-10-07 14:57 | Cesarean Section Operative ---
Procedure Procedure Note Pre-operative Diagnosis: Dano Huffman is a 39 /Para 8 / 4, Gestational Age 37 2/7 weeks, gestational diabetes b (preexisting type II diabetes), AMA, renal anomaly, hypothyroid, morbid obesity, history of previous section x 3 Post-operative Diagnosis: same, left peritubal adhesions and tubal cysts, right tube with nodularity Procedure: repeat low transverse section, excision of left tubal cysts/adhesiolysis, right partial salpingectomy Physician: GEO DACOSTA Estimated blood loss: 600 mL Disposition: stable Findings: Viable female infant, Apgars 8/9, weight 8#8ounces, intact placenta, 3vc, uterus with very large window (about 6 cm), left tube with peritubal adhesions, peritubal cysts, right tube with varicosities and nodularity, normal appearing ovaries with peritubal adhesions. Indications:Dano Huffman is a 39 /Para 8 / 4,Gestational Age 37 2/7 weeks, gestational diabetes b (preexisting type II diabetes), AMA, renal anomaly, hypothyroid, morbid obesity, history of previous section x 3 Procedure Details: The patient was seen in pre-op and the procedure was discussed with the patient in full, including the risks, benefits, and alternatives. All questions were answered. The patient was taken to the operating room and a time out was performed, verifying patient and procedure. After spinal anesthesia was placed by our anesthesia colleagues, the patient was placed in the dorsal supine with leftward tilt for uterine displacement.~ Her abdomen was then prepped and draped in the typical sterile fashion. A Pfannenstiel skin incision was made using a scalpel and carried down through the underlying fascia. The fascia was incised in the midline and tented up using K ocher clamps. On both the inferior and superior fascia side the rectus muscle was dissected off bluntly and sharply using Wylie scissors. The peritoneum was identified and entered bluntly in the midline. This was then stretched laterally using manual strength. After entering the abdominal cavity and confirming lack of intraperitoneal adhesions, a large Danny retractor was placed and the lower uterine segment was visualized. A bladder flap was created with the use of Metzenbaum scissors.~ A scalpel was utilized to make a low transverse uterine incision. Amniotomy was performed with an Allis clamp with return of clear fluid. The 's head was grasped and brought to the level of the incision. Fundal pressure was applied and was delivered without difficulty. Mouth and nares were suctioned with bulb suction. After the umbilical cord was clamped and cut, the was handed off to the pediatric staff. A sample of cord blood was then obtained. The placenta was delivered intact via uterine massage. The uterus was exteriorized and cleared of all clots and debris. The uterine incision was closed using 0 Vicryl in a running locked fashion. A second imbricated layer was placed using 0 Vicryl in a running fashion as well. The uterus was flexed forward and the posterior rectouterine space was inspected and cleared of all clots and debris. Again the hysterotomy site was examined and hemostasis was observed. The bilateral tubes and ovaries appeared normal. The uterus was placed back into the abdominal cavity and abdominal gutters were cleared of all clots and debris. A final check of the uterine incision showed it to be hemostatic. The peritoneum was closed using 3-0 Vicryl in a running fashion. The fascia was closed with 0 Vicryl in a running fashion. The subcutaneous space was hemostatic, and irrigated. The subcutaneous space was closed with 3-0 Vicryl in several single interrupted stitches. The skin was then closed using 4-0 Monocryl in a running subcuticular fashion. The skin edges were reapproximated together a nd were hemostatic. A pressure dressing was applied. All sponge, lap and needle counts were correct at the end of the procedure per nursing. Vitals - Labs Vital Signs - I&O Vital Signs Date Time Temp Pulse Resp B/P (MAP) Pulse Ox O2 Delivery O2 Flow Rate FiO2 10/07/19 12:21 36.4 94 18 97 Room Air 10/07/19 11:23 36.4 94 18 132/72 (92) 97 Room Air Labs Laboratory Tests 10/07/19 11:54: Glucometer 108 10/07/19 12:00: Urine Color YELLOW, Urine Clarity SL CLOUDY, Urine pH 5.5, Urine Specific [place] >=1.030, Urine Protein TRACEH, Urine Glucose (UA) NEGATIVE, Urine Ketones 1+H, Urine Nitrite NEGATIVE, Urine Bilirubin 1+H, Urine Urobilinogen 0.2, Urine Leukocyte Esterase NEGATIVE, Urine RBC (Auto) NEGATIVE, Urine RBC NONE, Urine WBC 2-5, Urine Squamous Epithelial Cells 5-10, Urine Crystals PRESENTH, Urine Uric Acid Crystals FEWH, Urine Bacteria TRACE, Urine Casts NONE, Urine Mucus NEGATIVE, Urine Culture Indicated NO 10/07/19 12:03: White Blood Count 13.6H, Red Blood Count 4.19L, Hemoglobin 11.0L, Hematocrit 32L , Mean Corpuscular Volume 76L, Mean Corpuscular Hemoglobin 26, Mean Corpuscular Hemoglobin Concent 35, Red Cell Distribution Width 15.9H, Platelet Count 455H, Mean Platelet Volume 9.0, Neutrophils (%) (Auto) 70, Lymphocytes (%) (Auto) 22, Monocytes (%) (Auto) 6, Eosinophils (%) (Auto) 2, Basophils (%) (Auto) 0, Neutrophils # (Auto) 9.6H, Lymphocytes # (Auto) 3.0, Monocytes # (Auto) 0.8, Eosinophils # (Auto) 0.3, Basophils # (Auto) 0.0, Glucose Level 97 GEO DACOSTA DO Oct 07, 2019 14:57
[2019-10-07] MEDS ORDERED: BISACODYL 10 MG SUPP (DULCOLAX) PR PRN (15:00)
[2019-10-07] MEDS ORDERED: morphine INJ 4 MG/ML 1 ML (VIAL/SYRINGE) IVP PRN (15:00)
[2019-10-07] MEDS ORDERED: TETANUS,DIPTH,PERTUSS P/F (BOOSTRIX) 0.5 ML VIAL IM SCH (15:00)
[2019-10-07] MEDS ORDERED: MEASLES,MUMPS,RUBELLA 1 EA INJ SC SCH (15:00)
[2019-10-07] MEDS: OXYTOCIN PRE-MIX DRIP 500 ML IV SCH (16:00)
--- NOTE | 2019-10-07 16:30 | NUR ---
Pt to nsy via bed accompanied by RN and daughter to see infant. Pt oriented to surroundings. IV pitocin to pump. Encouraged pt to notify nsy RN if needs anything.
[2019-10-07] MEDS: KETOROLAC 30 MG/ML VIAL IV SCH (17:45)
--- NOTE | 2019-10-07 17:50 | NUR ---
Pt to room 313 via bed accompanied by RN and daughter. Pt and daughter oriented to room and call light.
[2019-10-07] MEDS: metFORMIN 500 MG (GLUCOPHAGE) TAB PO SCH (19:09)
[2019-10-07] MEDS: ACETAMINOPHEN 500 MG TAB (TYLENOL) PO SCH (19:10)
[2019-10-07] MEDS: DOCUSATE SODIUM 100 MG (COLACE) CAP PO SCH (19:58)
[2019-10-07] MEDS ORDERED: metFORMIN 500 MG (GLUCOPHAGE) TAB PO SCH (21:00)
[2019-10-07] MEDS: inSUlin ASPART (NovoLOG) 1 UNIT/0.01 ML (CHARGE PER UNIT) SC SCH (22:00)
[2019-10-08] MEDS: KETOROLAC 30 MG/ML VIAL IV SCH ×3 (00:04→11:01)
[2019-10-08 00:15] VITALS: BP 116/58
[2019-10-08] MEDS: ACETAMINOPHEN 500 MG TAB (TYLENOL) PO SCH ×3 (03:14→19:40)
[2019-10-08 03:15] VITALS: BP 134/65
[2019-10-08 04:31] LABS: BASOPHILS % (AUTO) 0 % (0-10); EOSINOPHILS # (AUTO) 0.3 10^3/uL (0.0-0.3); EOSINOPHILS % (AUTO) 2 % (0-10); HEMATOCRIT 31 % (35-52); HEMOGLOBIN 10.5 G/DL (11.5-16.0); LYMPHOCYTES # (AUTO) 2.2 X 10^3 (1.0-4.0); LYMPHOCYTES % (AUTO) 18 % (12-44); MEAN CORPUSCULAR HEMOGLOBIN 26 PG (25-34); MEAN CORPUSCULAR HGB CONC 33 G/DL (32-36); MEAN CORPUSCULAR VOLUME 79 FL (80-99); MEAN PLATELET VOLUME 9.3 FL (7.4-10.4); MONOCYTES # (AUTO) 0.6 X 10^3 (0.0-1.0); MONOCYTES % (AUTO) 5 % (0-12); NEUTROPHILS # (AUTO) 8.9 X 10^3 (1.8-7.8); NEUTROPHILS % (AUTO) 74 % (42-75); PLATELET COUNT 407 10^3/uL (130-400); RED CELL DISTRIBUTION WIDTH 15.7 % (10.0-14.5)
[2019-10-08] MEDS ORDERED: MILK OF MAGNESIA 400 MG/5 ML 30 ML UDC PO PRN (05:00)
[2019-10-08] MEDS: inSUlin ASPART (NovoLOG) 1 UNIT/0.01 ML (CHARGE PER UNIT) SC SCH ×4 (06:14→17:29)
[2019-10-08] MEDS: glyBURIDE 5 MG (MICRONASE) TAB PO SCH (06:28)
[2019-10-08] MEDS: metFORMIN 500 MG (GLUCOPHAGE) TAB PO SCH ×2 (06:28→17:01)
[2019-10-08] MEDS: LEVOTHYROXINE 75 MCG (LEVOTHROID) TABLET PO SCH (06:28)
[2019-10-08] MEDS: FERROUS SULF 325 MG (IRON) TAB PO SCH (06:38)
[2019-10-08] MEDS: OXYTOCIN PRE-MIX DRIP 500 ML IV SCH (07:57)
[2019-10-08] MEDS ORDERED: metFORMIN XR 500 MG (GLUCOPHAGE XR) TAB PO SCH (09:00)
[2019-10-08 09:01] VITALS: BP 119/64
[2019-10-08] MEDS: DOCUSATE SODIUM 100 MG (COLACE) CAP PO SCH ×2 (09:01→21:09)
[2019-10-08] MEDS: CATHETER FLUSH 10 ML SYR IV SCH ×2 (09:01→12:00)
--- NOTE | 2019-10-08 09:01 | NUR ---
AM shift assessment completed and vital signs obtained, see interventions. Plan of care reviewed with patient. Patient verbalizes understanding. Scheduled Colace PO given along with oxycodone 5mg for patient's c/o pain rated 7/10. Patient reports that the "oxy" does not work for her. Encouraged her to discuss with Dr. Velazquez when she made rounds this morning.
--- NOTE | 2019-10-08 09:34 | Postpartum Progress Note ---
Post Op Post-operative Day #1 s/p RLTCS. Also right partial salpingectomy due to unusual nodularity and adhesions of the right tube and cysts removed from left tube with adhesions. Patient has completed childbearing and therefore tubes removed rather than dissecting out the adhesions and removing the nodularity for biosy. Both tubes will be ineffective. Refusing iron today, refusing to ambulate as expected. Does not with to shower. Type II diabetes on insulin during . Glyburide, Metformin and ozempic antepartum. Restarted metformin and glyburide and will send home with new rx for ozempic. Baby transferred to [place]. 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 Was recommended delivery at tertiary care center early in due to possibility of further anomalies, but those were ruled out and [facility] convinced that baby could follow up after delivery with pharmacy aide at [facility]. Also most of care was during covid quarantine and mother did not wish to travel to unless absolutely necessary. Due to AMA, poor control of diabetes, [facility] recommended delivery at 37 weeks. This was done yesterday at 37 2/7 weeks. Baby transferred to [place] due to possible pneumonia and the known renal anomaly, with suspected other concern for syndromic findings (maybe a skeletal dysplasia?). Subjective: Patient is without complaints. Ambulating, voiding after perez removed. Tolerating a regular diet without nausea or vomiting. Normal lochia. Pain is well controlled with oral pain medications. Passing flatus. pumping. Elevated blood sugars once she began eating but had not had her medications yesterday due to CS. Restarted metformin and put on coverage insulin until diet resumed and started glyburide today. Objective: Laboratory Tests Test 10/07/19 11:54 10/07/19 12:00 10/07/19 12:03 10/07/19 18:29 Range/Units Glucometer 108 78 70-110 MG/DL Urine Color YELLOW Urine Clarity SL CLOUDY Urine pH 5.5 5-9 Urine Specific [place] >=1.030 1.016-1.022 Urine Protein TRACE H NEGATIVE Urine Glucose (UA) NEGATIVE NEGATIVE Urine Ketones 1+ H NEGATIVE Urine Nitrite NEGATIVE NEGATIVE Urine Bilirubin 1+ H NEGATIVE Urine Urobilinogen 0.2 < = 1.0 MG/DL Urine Leukocyte Esterase NEGATIVE NEGATIVE Urine RBC (Auto) NEGATIVE NEGATIVE Urine RBC NONE /HPF Urine WBC 2-5 /HPF Urine Squamous Epithelial Cells 5-10 /HPF Urine Crystals PRESENT H /LPF Urine Uric Acid Crystals FEW H /LPF Urine Bacteria TRACE /HPF Urine Casts NONE /LPF Urine Mucus NEGATIVE /LPF Urine Culture Indicated NO White Blood Count 13.6 H 4.3-11.0 10^3/uL Red Blood Count 4.19 L 4.35-5.85 10^6/uL Hemoglobin 11.0 L 11.5-16.0 G/DL Hematocrit 32 L 35-52 % Mean Corpuscular Volume 76 L 80-99 FL Mean Corpuscular Hemoglobin 26 25-34 PG Mean Corpuscular Hemoglobin Concent 35 32-36 G/DL Red Cell Distribution Width 15.9 H 10.0-14.5 % Platelet Count 455 H 130-400 10^3/uL Mean Platelet Volume 9.0 7.4-10.4 FL Neutrophils (%) (Auto) 70 42-75 % Lymphocytes (%) (Auto) 22 12-44 % Monocytes (%) (Auto) 6 0-12 % Eosinophils (%) (Auto) 2 0-10 % Basophils (%) (Auto) 0 0-10 % Neutrophils # (Auto) 9.6 H 1.8-7.8 X 10^3 Lymphocytes # (Auto) 3.0 1.0-4.0 X 10^3 Monocytes # (Auto) 0.8 0.0-1.0 X 10^3 Eosinophils # (Auto) 0.3 0.0-0.3 10^3/uL Basophils # (Auto) 0.0 0.0-0.1 10^3/uL Glucose Level 97 70-105 MG/DL Test 10/07/19 22:02 10/08/19 04:13 Range/Units Glucometer 139 H 128 H 70-110 MG/DL White Blood Count 12.0 H 4.3-11.0 10^3/uL Red Blood Count 3.99 L 4.35-5.85 10^6/uL Hemoglobin 10.5 L 11.5-16.0 G/DL Hematocrit 31 L 35-52 % Mean Corpuscular Volume 79 L 80-99 FL Mean Corpuscular Hemoglobin 26 25-34 PG Mean Corpuscular Hemoglobin Concent 33 32-36 G/DL Red Cell Distribution Width 15.7 H 10.0-14.5 % Platelet Count 407 H 130-400 10^3/uL Mean Platelet Volume 9.3 7.4-10.4 FL Neutrophils (%) (Auto) 74 42-75 % Lymphocytes (%) (Auto) 18 12-44 % Monocytes (%) (Auto) 5 0-12 % Eosinophils (%) (Auto) 2 0-10 % Basophils (%) (Auto) 0 0-10 % Neutrophils # (Auto) 8.9 H 1.8-7.8 X 10^3 Lymphocytes # (Auto) 2.2 1.0-4.0 X 10^3 Monocytes # (Auto) 0.6 0.0-1.0 X 10^3 Eosinophils # (Auto) 0.3 0.0-0.3 10^3/uL Basophils # (Auto) 0.0 0.0-0.1 10^3/uL Physical Exam: General - Alert and oriented, no apparent distress Abdomen - Soft, appropriately tender to palpation, non-distended, fundus firm at umbilicus Incision - clean, dry and intact; no erythema or induration, no drainage Extremities - no edema, negative Jason's bilaterally Assessment: 1. post-operative day # 1, status post RLTCS. Recovering well, hemodynamically stable 2. Type II diabetes with GDM -B. 3. Acute blood loss anemia [] Plan: Routine post-operative care. Encourage breast feeding. Encourage ambulation. VTE prophylaxis: SCDs. Ferrous sulfate supplementation. Plan for discharge [] Vitals - Labs Vital Signs - I&O Vital Signs Date Time Temp Pulse Resp B/P (MAP) Pulse Ox O2 Delivery O2 Flow Rate FiO2 10/08/19 03:15 36.7 87 18 134/65 (88) 97 Room Air 10/08/19 00:15 37.0 86 18 116/58 (77) 97 Room Air 10/07/19 19:50 36.0 74 18 113/59 (77) 98 Room Air 10/07/19 16:54 35.9 77 18 109/55 (73) 98 Room Air 10/07/19 16:00 80 18 118/67 (84) 98 Room Air 10/07/19 15:55 Room Air 10/07/19 15:55 36.0 14 115/64 (81) 100 10/07/19 15:40 Room Air 10/07/19 15:40 35.8 18 115/85 (95) 100 10/07/19 15:25 35.9 16 119/71 (87) 100 10/07/19 15:25 Room Air 10/07/19 15:10 35.5 15 108/56 (73) 100 10/07/19 15:10 Room Air 10/07/19 14:55 Room Air 10/07/19 14:55 36.7 15 102/49 (66) 100 10/07/19 12:21 36.4 94 18 97 Room Air 10/07/19 11:23 36.4 94 18 132/72 (92) 97 Room Air I & O 10/08/19 07:00 Intake Total 2500 ml Output Total 125 ml Balance 2375 ml Labs Laboratory Tests 10/07/19 11:54: Glucometer 108 10/07/19 12:00: Urine Color YELLOW, Urine Clarity SL CLOUDY, Urine pH 5.5, Urine Specific [place] >=1.030, Urine Protein TRACEH, Urine Glucose (UA) NEGATIVE, Urine [place] es 1+H, Urine Nitrite NEGATIVE, Urine Bilirubin 1+H, Urine Urobilinogen 0.2, Urine Leukocyte Esterase NEGATIVE, Urine RBC (Auto) NEGATIVE, Urine RBC NONE, Urine WBC 2-5, Urine Squamous Epithelial Cells 5-10, Urine Crystals PRESENTH, Urine Uric Acid Crystals FEWH, Urine Bacteria TRACE, Urine Casts NONE, Urine M ucus NEGATIVE, Urine Culture Indicated NO 10/07/19 12:03: White Blood Count 13.6H, Red Blood Count 4.19L, Hemoglobin 11.0L, Hematocrit 32L , Mean Corpuscular Volume 76L, Mean Corpuscular Hemoglobin 26, Mean Corpuscular Hemoglobin Concent 35, Red Cell Distribution Width 15.9H, Platelet Count 455H, Mean Platelet Volume 9.0, Neutrophils (%) (Auto) 70, Lymphocytes (%) (Auto) 22, Monocytes (%) (Auto) 6, Eosinophils (%) (Auto) 2, Basophils (%) (Auto) 0, Neutrophils # (Auto) 9.6H, Lymphocytes # (Auto) 3.0, Monocytes # (Auto) 0.8, Eosinophils # (Auto) 0.3, Basophils # (Auto) 0.0, Glucose Level 97 10/07/19 18:29: Glucometer 78 10/07/19 22:02: Glucometer 139H 10/08/19 04:13: Glucometer 128H, White Blood Count 12.0H, Red Blood Count 3.99L, Hemoglobin 10.5L, Hematocrit 31L, Mean Corpuscular Volume 79L, Mean Corpuscular Hemoglobin 26, Mean Corpuscular Hemoglobin Concent 33, Red Cell Distribution Width 15.7H, Platelet Count 407H, Mean Platelet Volume 9.3, Neutrophils (%) (Auto) 74, Lymphocytes (%) (Auto) 18, Monocytes (%) (Auto) 5, Eosinophils (%) (Auto) 2, Basophils (%) (Auto) 0, Neutrophils # (Auto) 8.9H, Lymphocytes # (Auto) 2.2, Monocytes # (Auto) 0.6, Eosinophils # (Auto) 0.3, Basophils # (Auto) 0.0 GEO DACOSTA DO Oct 08, 2019 09:34
[2019-10-08] MEDS ORDERED: ENOXAPARIN 40 MG/0.4 ML (LOVENOX) SYR SQ SCH (10:00)
--- NOTE | 2019-10-08 10:03 | NUR ---
Fingerstick blood glucose obtained: 107 mg/dL. Patient refuses the Lovenox ordered by Dr. Velazquez. Dr. Velazquez in room and its use explained, patient continues to refuse. Plan of care reviewed with patient.
[2019-10-08] MEDS ORDERED: SIMETHICONE 80 MG (MYLICON) CHEW PO ONE (10:30)
--- NOTE | 2019-10-08 10:40 | Anesthesia-Regional Post-Op ---
Regional Patient Condition Mental Status: Alert, Oriented x3 Circulation: Same as Pre-Op Headache: Absent Sensation: Full Recovery Motor Block: Absent Post Op Complications Complications None Follow Up Care/Instructions Patient Instructions None needed. Anesthesia/Patient Condition Patient is doing well, no complaints, stable vital signs, no apparent adverse anesthesia problems. No complications reported per nursing. MASSIEL HO CRNA Oct 08, 2019 10:40
[2019-10-08 15:15] VITALS: BP 135/62
[2019-10-08] MEDS ORDERED: SIMETHICONE 80 MG (MYLICON) CHEW PO PRN (17:15)
[2019-10-08] MEDS: IBUPROFEN 600 MG (MOTRIN) TAB PO SCH ×2 (17:30→23:08)
[2019-10-08 21:00] VITALS: BP 124/59
[2019-10-08] MEDS: traZODone 50 MG (DESYREL) TAB PO SCH ×2 (21:49→23:07)
--- NOTE | 2019-10-08 23:08 | NUR ---
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
[2019-10-09 03:30] VITALS: BP 103/59
[2019-10-09] MEDS: ACETAMINOPHEN 500 MG TAB (TYLENOL) PO SCH ×3 (04:06→19:27)
[2019-10-09] MEDS: IBUPROFEN 600 MG (MOTRIN) TAB PO SCH ×3 (06:47→17:53)
[2019-10-09] MEDS: LEVOTHYROXINE 75 MCG (LEVOTHROID) TABLET PO SCH (06:47)
[2019-10-09] MEDS: metFORMIN 500 MG (GLUCOPHAGE) TAB PO SCH (06:47)
[2019-10-09] MEDS: FERROUS SULF 325 MG (IRON) TAB PO SCH (06:48)
[2019-10-09] MEDS: glyBURIDE 5 MG (MICRONASE) TAB PO SCH (06:48)
[2019-10-09] MEDS: inSUlin ASPART (NovoLOG) 1 UNIT/0.01 ML (CHARGE PER UNIT) SC SCH (07:16)
[2019-10-09 09:00] VITALS: BP 124/57
[2019-10-09] MEDS: DOCUSATE SODIUM 100 MG (COLACE) CAP PO SCH ×2 (09:10→19:27)
--- NOTE | 2019-10-09 09:49 | Postpartum Progress Note ---
Post Op Post-operative Day #2 s/p RLTCS. Blood sugars much better with restarting glyburide and metformin. Patient will not stick to a diabetic diet so was changed to regular. Pain in right upper abdomen much better today. but complains of pain in right incision. Subjective: Patient is without complaints. Ambulating, voiding after perez removed. Tolerating a regular diet without nausea or vomiting. Normal lochia. Pain is well controlled with oral pain medications. Passing flatus. pumping as baby is at [place] Objective: 10/09/19 03:30 Temp 37.6 Pulse 91 Resp 18 B/P (MAP) 103/59 (74) O2 Delivery Room Air Physical Exam: General - Alert and oriented, no apparent distress Abdomen - Soft, appropriately tender to palpation, non-distended, fundus firm at umbilicus Incision - clean, dry and intact; no erythema or induration, no drainage. No ecchymosis. Extremities - no edema, negative Jason's bilaterally Assessment: 1. post-operative day # 2 s/p, status post RLTCS. Recovering well, hemodynamically stable 2. GDM - type II diabetes, with poor antepartum control 3. AMA 4. post operative pain Plan: Routine post-operative care. Encourage breast feeding. Encourage ambulation. VTE prophylaxis: SCDs./ Patient refused lovenox Ferrous sulfate supplementation. Plan for discharge today. DC held today as pain not well controlled and baby at [place]. Will DC home tomorrow. Vitals - Labs Vital Signs - I&O Vital Signs Date Time Temp Pulse Resp B/P (MAP) Pulse Ox O2 Delivery O2 Flow Rate FiO2 10/09/19 03:30 37.6 91 18 103/59 (74) Room Air 10/08/19 21:00 36.9 96 18 124/59 (80) 99 Room Air 10/08/19 15:15 36.4 93 20 135/62 (86) 98 Room Air I & O 10/09/19 07:00 Intake Total 510 ml Output Total 1800 ml Balance -1290 ml Labs Laboratory Tests 10/08/19 10:03: Glucometer 107 10/08/19 21:12: Glucometer 108 10/09/19 06:44: Glucometer 89 Microbiology 10/07/19 MRSA Screen - Final, Complete No growth GEO DACOSTA DO Oct 09, 2019 09:49
[2019-10-09] MEDS ORDERED: DCS100C PO (10:02)
[2019-10-09] MEDS ORDERED: ACET-93 PO (10:02)
[2019-10-09] MEDS ORDERED: IBUP-844 PO (10:02)
[2019-10-09] MEDS ORDERED: OXYC5TAB96 PO (10:02)
[2019-10-09] MEDS ORDERED: FERR325T18 PO (10:02)
[2019-10-09] MEDS ORDERED: SIME80TA16 PO (10:02)
[2019-10-09] MEDS ORDERED: SEMA1PEN SQ (10:02)
[2019-10-09] MEDS ORDERED: GLYB5TAB6 PO (10:02)
--- NOTE | 2019-10-09 10:11 | Discharge Inst-Women's Service ---
Discharge Inst-Women's Serv Depart Medication/Instructions New, Converted or Re-Newed RX: Other (transmitted and on chart) Instructions start ozempic (see Rx) continue metformin restart glyburide no lifting over 25 lbs nothing in the vagina no driving for 1 week Final Diagnosis repeat section type 2 diabetes in /GDM B advanced maternal age hypothyroid renal anomaly Problems Reviewed?: Yes Consults/Follow Up Additional Follow Up: Yes (1 week for incision check. 6 week pp exam) Activity Activity: Activity as Tolerated Driving Instructions: No Driving for 1 Week NO SMOKING: NO SMOKING Nothing Inside Vagina: No Douching, No [place], No Tampons Diet Discharge Diet: No Restrictions Symptoms to Report to : Eyesight Changes, Pain Increased, Fever Over 101 Degrees F, Vaginal Bleeding Increase, Cramps in Feet or Legs, Vaginal Discharge Foul For Any Problems or Questions: Contact Your Physician Skin/Wound Care Infection Signs and Symptoms: Increased Redness, Foul Odor of Wound, Increased Drainage, Skin Itchy or Has a Rash, Increased Swelling, Temperature Above 101 F Operative Area Clean and Dry: Keep Incision Clean/Dry Stitches/[place]/Dermabond: Dermabond Bathing Instructions: GEO Cummings DO Oct 09, 2019 10:10
--- NOTE | 2019-10-09 11:30 | NUR ---
Pt much more cheerful after Dr Velazquez's rounds. Physician gave her the option of staying or discharged. Infant in [facility]. 1221 Pt decided to stay due to pain control. Rates pain 0 without movement but 7-8 with movement.
[2019-10-09 15:40] VITALS: BP 119/66
--- NOTE | 2019-10-09 16:03 | NUR ---
Pain 5 with movement - complains of only rt sided burning of incision. Up and about in room. Sat in chair for awhile. States will shower this evening. Drinking on coke zero. States sugars are so much better now than when .
[2019-10-09 19:15] VITALS: BP 137/87
[2019-10-10] VITALS: BP 106/69
[2019-10-10] MEDS: IBUPROFEN 600 MG (MOTRIN) TAB PO SCH ×3 (00:06→12:50)
[2019-10-10] MEDS: glyBURIDE 5 MG (MICRONASE) TAB PO SCH (06:30)
[2019-10-10] MEDS: metFORMIN 500 MG (GLUCOPHAGE) TAB PO SCH (06:30)
[2019-10-10] MEDS: LEVOTHYROXINE 75 MCG (LEVOTHROID) TABLET PO SCH (06:30)
[2019-10-10] MEDS: ACETAMINOPHEN 500 MG TAB (TYLENOL) PO SCH (06:33)
[2019-10-10 06:35] VITALS: BP 132/71
[2019-10-10] MEDS: FERROUS SULF 325 MG (IRON) TAB PO SCH (07:00)
--- NOTE | 2019-10-10 07:30 | NUR ---
RN to pt bedside with tam that she requested from dietary. plan of care discussed with pt. pt informed rn that she "has been trying to sleep but everyone just keeps coming in and bothering me." pt informed that for care there are certain interventions that need to be done. Discussed with pt regarding physician rounding for discharge and pt states she "will be leaving around 1pm today."
--- NOTE | 2019-10-10 07:56 | Postpartum Progress Note ---
Post Op Post-operative Day #3 s/p rltcs. Not up yet, but per RN. dc held due to poorly controlled pain. better today on 10 oxycodone q 6hr with tylenol and ibuprofen. Also abdominal binder. Passing flatus. Subjective: Patient is without complaints. Ambulating Tolerating a regular diet without nausea or vomiting. Normal lochia. Pain is well controlled with oral pain medications. Passing flatus. Objective: Laboratory Tests Test 10/07/19 11:54 10/07/19 12:00 10/07/19 12:03 10/07/19 18:29 Range/Units Glucometer 108 78 70-110 MG/DL Urine Color YELLOW Urine Clarity SL CLOUDY Urine pH 5.5 5-9 Urine Specific [place] >=1.030 1.016-1.022 Urine Protein TRACE H NEGATIVE Urine Glucose (UA) NEGATIVE NEGATIVE Urine Ketones 1+ H NEGATIVE Urine Nitrite NEGATIVE NEGATIVE Urine Bilirubin 1+ H NEGATIVE Urine Urobilinogen 0.2 < = 1.0 MG/DL Urine Leukocyte Esterase NEGATIVE NEGATIVE Urine RBC (Auto) NEGATIVE NEGATIVE Urine RBC NONE /HPF Urine WBC 2-5 /HPF Urine Squamous Epithelial Cells 5-10 /HPF Urine Crystals PRESENT H /LPF Urine Uric Acid Crystals FEW H /LPF Urine Bacteria TRACE /HPF Urine Casts NONE /LPF Urine Mucus NEGATIVE /LPF Urine Culture Indicated NO White Blood Count 13.6 H 4.3-11.0 10^3/uL Red Blood Count 4.19 L 4.35-5.85 10^6/uL Hemoglobin 11.0 L 11.5-16.0 G/DL Hematocrit 32 L 35-52 % Mean Corpuscular Volume 76 L 80-99 FL Mean Corpuscular Hemoglobin 26 25-34 PG Mean Corpuscular Hemoglobin Concent 35 32-36 G/DL Red Cell Distribution Width 15.9 H 10.0-14.5 % Platelet Count 455 H 130-400 10^3/uL Mean Platelet Volume 9.0 7.4-10.4 FL Neutrophils (%) (Auto) 70 42-75 % Lymphocytes (%) (Auto) 22 12-44 % Monocytes (%) (Auto) 6 0-12 % Eosinophils (%) (Auto) 2 0-10 % Basophils (%) (Auto) 0 0-10 % Neutrophils # (Auto) 9.6 H 1.8-7.8 X 10^3 Lymphocytes # (Auto) 3.0 1.0-4.0 X 10^3 Monocytes # (Auto) 0.8 0.0-1.0 X 10^3 Eosinophils # (Auto) 0.3 0.0-0.3 10^3/uL Basophils # (Auto) 0.0 0.0-0.1 10^3/uL Glucose Level 97 70-105 MG/DL Test 10/07/19 22:02 10/08/19 04:13 10/08/19 10:03 10/08/19 21:12 Range/Units Glucometer 139 H 128 H 107 108 70-110 MG/DL White Blood Count 12.0 H 4.3-11.0 10^3/uL Red Blood Count 3.99 L 4.35-5.85 10^6/uL Hemoglobin 10.5 L 11.5-16.0 G/DL Hematocrit 31 L 35-52 % Mean Corpuscular Volume 79 L 80-99 FL Mean Corpuscular Hemoglobin 26 25-34 PG Mean Corpuscular Hemoglobin Concent 33 32-36 G/DL Red Cell Distribution Width 15.7 H 10.0-14.5 % Platelet Count 407 H 130-400 10^3/uL Mean Platelet Volume 9.3 7.4-10.4 FL Neutrophils (%) (Auto) 74 42-75 % Lymphocytes (%) (Auto) 18 12-44 % Monocytes (%) (Auto) 5 0-12 % Eosinophils (%) (Auto) 2 0-10 % Basophils (%) (Auto) 0 0-10 % Neutrophils # (Auto) 8.9 H 1.8-7.8 X 10^3 Lymphocytes # (Auto) 2.2 1.0-4.0 X 10^3 Monocytes # (Auto) 0.6 0.0-1.0 X 10^3 Eosinophils # (Auto) 0.3 0.0-0.3 10^3/uL Basophils # (Auto) 0.0 0.0-0.1 10^3/uL Test 10/09/19 06:44 10/09/19 10:43 10/09/19 16:26 10/09/19 20:08 Range/Units Glucometer 89 128 H 60 *L 120 H 70-110 MG/DL Test 10/10/19 06:29 Range/Units Glucometer 96 70-110 MG/DL 10/10/19 10/10/19 00:00 06:35 Temp 36.3 36.1 Pulse 75 82 Resp 18 18 B/P (MAP) 106/69 (81) 132/71 (91) Pulse Ox 98 99 Physical Exam: General - Alert and oriented, no apparent distress Abdomen - Soft, appropriately tender to palpation, non-distended, fundus firm at umbilicus Incision - clean, dry and intact; no erythema or induration, no drainage Extremities - no edema, negative Jason's bilaterally Assessment: 1. post-operative day # 3, status post RLTCS. Recovering well, hemodynamically stable 2. 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 Acute blood loss anemia- on iron [] Plan: Routine post-operative care. Encourage breast feeding/pumping Encourage ambulation. VTE prophylaxis: SCDs. ambulation Ferrous sulfate supplementation. Plan for discharge today Vitals - Labs Vital Signs - I&O Vital Signs Date Time Temp Pulse Resp B/P (MAP) Pulse Ox O2 Delivery O2 Flow Rate FiO2 10/10/19 06:35 36.1 82 18 132/71 (91) 99 10/10/19 00:00 36.3 75 18 106/69 (81) 98 10/09/19 19:15 36.0 91 18 137/87 (104) 100 10/09/19 15:45 36.4 10/09/19 15:40 36.4 80 16 119/66 (83) 97 Room Air 10/09/19 09:00 36.5 79 16 124/57 (79) 96 Room Air Labs Laboratory Tests 10/09/19 10:43: Glucometer 128H 10/09/19 16:26: Glucometer 60*L 10/09/19 20:08: Glucometer 120H 10/10/19 06:29: Glucometer 96 Microbiology 10/07/19 MRSA Screen - Final, Complete No growth GEO DACOSTA DO Oct 10, 2019 07:56
--- NOTE | 2019-10-10 09:01 | NUR ---
Dr Velazquez to see patient.
--- NOTE | 2019-10-10 09:17 | Discharge Summary ---
Diagnosis/Chief Complaint Date of Admission Oct 07, 2019 at 10:58 Date of Discharge Discharge Date: Oct 10, 2019 Discharge Diagnosis Previous section Discharge Summary Hospital Course Hospital Course Admitted on 10/07/2019 for scheduled repeat sec Labs Laboratory Tests 10/07/19 11:54: 10/07/19 12:00: Urine Protein TRACEH, Urine Ketones 1+H, Urine Bilirubin 1+H, Urine Crystals PRESENTH, Urine Uric Acid Crystals FEWH 10/07/19 12:03: White Blood Count 13.6H, Red Blood Count 4.19L, Hemoglobin 11.0L, Hematocrit 32L , Mean Corpuscular Volume 76L, Red Cell Distribution Width 15.9H, Platelet Count 455H, Neutrophils # (Auto) 9.6H 10/07/19 18:29: 10/07/19 22:02: Glucometer 139H 10/08/19 04:13: Glucometer 128H, White Blood Count 12.0H, Red Blood Count 3.99L, Hemoglobin 10.5L, Hematocrit 31L, Mean Corpuscular Volume 79L, Red Cell Distribution Width 15.7H, Platelet Count 407H, Neutrophils # (Auto) 8.9H 10/08/19 10:03: 10/08/19 21:12: 10/09/19 06:44: 10/09/19 10:43: Glucometer 128H 10/09/19 16:26: Glucometer 60*L 10/09/19 20:08: Glucometer 120H 10/10/19 06:29: Procedures repeat section Discharge Physical Examination Allergies: Coded Allergies: latex (Unverified Allergy, Mild, RASH, ITCHING, 09/22/19) Uncoded Allergies: TAPE (Allergy, Mild, 05/23/09) Vitals & I&Os Vital Signs Date Time Temp Pulse Resp B/P (MAP) Pulse Ox O2 Delivery O2 Flow Rate FiO2 10/10/19 06:35 36.1 82 18 132/71 (91) 99 10/09/19 15:40 Room Air General Appearance: Alert, Oriented X3 Respiratory: Clear to Auscultation, Normal Air Movement Cardiovascular: Regular Rate, Normal S1, Normal S2 Abdominal: Normal Bowel Sounds Discharge Home Medications Reviewed and agree with Discharge Medication list on patient's Discharge Instruction sheet Condition at Discharge stable Instructions to Patient/Family Please see electronic discharge instructions given to patient. Clinical Quality Measures DVT/VTE Risk/Contraindication: Risk Factor Score Per Nursin RFS Level Per Nursing on Admit: 4+=Very High GEO DACOSTA DO Oct 10, 2019 09:17
--- NOTE | 2019-10-10 09:40 | NUR ---
Rn to bedside to check glucose. pt reports having "just finished breakfast at 8:15." declines wanting to take am meds at this time.
--- NOTE | 2019-10-10 09:45 | NUR ---
RN doing assessment. pt reports "dr souza has already looked at my incision."
[2019-10-10] MEDS: inSUlin ASPART (NovoLOG) 1 UNIT/0.01 ML (CHARGE PER UNIT) SC SCH (11:14)
[2019-10-10] MEDS: DOCUSATE SODIUM 100 MG (COLACE) CAP PO SCH (11:17)
[2019-10-10 11:46] VITALS: BP 125/58
--- NOTE | 2019-10-10 12:44 | NUR ---
Discharge instructions explained, signed and copy to patient. pt verbalized understanding of instructions and denied questions. prescriptions given to pt and discussed. pt denied questions regarding medications.
[2019-10-10] MEDS ORDERED: oxyCODONE/APAP 5/325MG (PERCOCET 5) TABLET PO ONE (12:45)
--- NOTE | 2019-10-10 13:45 | NUR ---
Discharged to home. Downstairs in wheelchair per ws staff and to private vehicle with belongings in hand.
== END 2019-10-10 13:45 | disposition home or self-care (01) | DRG 783 ==
LOC: LDRP 10-07 10:58
PROVIDERS: ADMIT Obstetrics & Gynecology; ATTEND Obstetrics & Gynecology
PROC: 0UB70ZZ Excision of Bilateral Fallopian Tubes, Open Approach (ICD-10-PCS; 2019-10-07)
PROC: 10D00Z1 Extraction of Products of Conception, Low, Open Approach (ICD-10-PCS; principal; 2019-10-07 13:56)
DX: O34.211 Maternal care for low transverse scar from previous cesarean delivery (principal); O24.12 Pre-existing type 2 diabetes mellitus, in childbirth; O90.81 Anemia of the puerperium; D62 Acute posthemorrhagic anemia; E11.9 Type 2 diabetes mellitus without complications; K21.9 Gastro-esophageal reflux disease without esophagitis; O99.284 Endocrine, nutritional and metabolic diseases complicating childbirth; E89.0 Postprocedural hypothyroidism; Z37.0 Single live birth; E66.01 Morbid (severe) obesity due to excess calories; Z3A.37 37 weeks gestation of pregnancy; O99.213 Obesity complicating pregnancy, third trimester; N99.4 Postprocedural pelvic peritoneal adhesions; N83.8 Other noninflammatory disorders of ovary, fallopian tube and broad ligament; Z79.4 Long term (current) use of insulin
CPT/HCPCS: 36415; 81000; 82947; 82962; 85025; 86850; 86900; 86901; 87081; 88302; 88305

== ENCOUNTER 2019-10-03 05:55 | Outpatient (RCR) | payer MEDICAID ==
[~2019-10-03] VITALS: Ht 162 cm; Wt 127.0 kg
== END 2019-10-03 15:12 | disposition home or self-care (01) ==
LOC: PREOP 05:55 → EDSTATUS 10-06 10:00
PROVIDERS: ATTEND Obstetrics & Gynecology
DX: Z01.818 Encounter for other preprocedural examination (principal); Z11.59 Encounter for screening for other viral diseases
CPT/HCPCS: 87635